=== PATIENT | female | born 1935 | race Caucasian/White ===

== ENCOUNTER 2016-06-20 10:32 | Inpatient (IN) | payer MEDICARE, OTHER ==
[~2016-06-20] VITALS: Ht 170.2 cm; Wt 66.3 kg
[2016-06-20] VITALS (9 sets, daily range): BP systolic 158–210; BP diastolic 84–131
--- NOTE | 2016-06-20 11:00 | ED Neurological Problem ---
General Chief Complaint: Neuro-Stroke Like Symptoms Stated Complaint: LEFT FACIAL DROOPING Nursing Triage Note: PT TAKEN STRAIGHT BACK TO RM 5 ON ARRIVAL WITH RT FACIAL DROOPING, HX OF BELLS PALSY, DR. PINON IN ROOM ON ARRIVAL. CT CALLED AND PT TAKEN TO CT AFTER ASSESSMENT BY DR. PINON. PT SLURRING SPEACH, S/S STARTED BETWEEN 0730 AND 0800 THIS A.M. Nursing Sepsis Screen: No Definite Risk Source: patient Exam Limitations: no limitations History of Present Illness Time seen by provider: 10:33 Initial Comments Here with report of onset of left facial paralysis and slurred speech that started between 730 a.m. this morning. 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 No recent prodrome. Does have left-sided weakness that is a persistent deficit for her she is had that since she had Dick 's palsy. She states the Dick's palsy previously was on her right side. Denies nausea, vomiting, chest pain or breathing problems. Patient walked into the ER. Timing/Duration: 1-3 hours Severity: moderate Associated Symptoms: No confusion, No fever/chills, No nausea/vomiting, No numbness in legs/feet, slurred speechNo tingling in legs/feet, No trouble walking, weakness Allergies and Home Medications Allergies Coded Allergies: Sulfa (Sulfonamide Antibiotics) (Verified Allergy, Unknown, 12/21/08) Home Medications Diazepam 10 Mg Tablet 10 MG PO HS PRN PRN ANXIETY (Reported) Diclofenac Sodium 50 Mg Tablet.dr 50 MG PO BID (Reported) Metoprolol Succinate 25 Mg Tab.er.24h 25 MG PO DAILY (Reported) Tramadol HCl 50 Mg Tablet 50-100 MG PO Q6H PRN PRN PAIN (Reported) Constitutional: see HPINo chills, No fever Eyes: See HPIDenies Blurred Vision, Drainage (excessive tearing on the left eye) Ears, Nose, Mouth, Throat: no symptoms reported Respiratory: no symptoms reportedNo short of breath, No wheezing Cardiovascular: no symptoms reportedNo chest pain, No palpitations Gastrointestinal: No abdominal pain, No nausea, No vomiting Genitourinary: no symptoms reported Musculoskeletal: no symptoms reported Skin: no symptoms reported Psychiatric/Neurological: See HPI Endocrine: No Symptoms Reported All Other Systems Reviewed Negative Unless Noted: Yes Past Pyvssqv-Trhpaf-Ospuns Hx Patient Social History Alcohol Use: Denies Use Recreational Drug Use: No Smoking Status: Former Smoker Recent Foreign Travel: No Contact w/Someone Who Travel: No Recent Infectious Disease Expo: No Recent Hopitalizations: No Physical Abuse Screen: No Sexual Abuse: No Seasonal Allergies Seasonal Allergies: Yes Surgeries HX Surgeries: Yes (SPLEENECTOMY, BI LAT KNEES) Surgeries: Appendectomy, Orthopedic Respiratory Hx Respiratory Disorders: No Cardiovascular Hx Cardiac Disorders: No Neurological Hx Neurological Disorders: Yes (dick's palsy right side) Reproductive System Hx Reproductive Disorders: No Sexually Transmitted Disease: No Genitourinary Hx Genitourinary Disorders: No Gastrointestinal Hx Gastrointestinal Disorders: No Musculoskeletal Hx Musculoskeletal Disorders: Yes (arthritis) Musculoskeletal Disorders: Arthritis Endocrine Hx Endocrine Disorders: No HEENT HX ENT Disorders: No Cancer Hx Cancer: No Psychosocial Hx Psychiatric Problems: No Blood Transfusions Hx Blood Disorders: No Reviewed Nursing Assessment Reviewed/Agree w Nursing PMH: Yes Family Medical History Significant Family History: No Pertinent Family Hx Physical Exam Vital Signs Vital Sign - Last 12Hours 06/20/16 06/20/16 10:38 10:55 Temp 98.4 Pulse 81 Resp 20 B/P 187/102 Pulse Ox 95 O2 Delivery Room Air O2 Flow Rate 2 Capillary Refill : Less Than 3 Seconds General Appearance: WD/WN no apparent distress HEENT: PERRL/EOMI pharynx normal other (left facial droop and left eye tearing ) Neck: full range of motion supple Respiratory: lungs clear normal breath sounds Cardiovascular: regular rate, rhythm no murmur Peripheral Pulses: 2+ Dorsalis Pedis (R), 2+ Left Dors-Pedis (L), 2+ Radial Pulses (R), 2+ Radial Pulses (L) Gastrointestinal: non tender soft Back: normal inspection no CVA tenderness no vertebral tenderness Extremities: non-tender normal inspection Neurologic/Psychiatric: alert oriented x 3 Crainal Nerves: normal hearing PERRL abnormal speech (slightly slurred) facial droop facial weakness Coordination/Gait: normal finger to nose normal gait Motor/Sensory: no motor deficit no sensory deficit no pronator drift weak motor strength LUE (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) Skin: normal color warm/dry Stroke NIH Stroke Scale Assessment Level of Consciousness: 0=Alert Level of Consciousness-Questio: 0=Answers both month/age LOC Commands: 0=Performs both tasks Gaze: 0=Normal Visual Calle: 0=No visual loss Facial Movement (Facial Paresi: 2=Partial paralysis Motor Function-Arms Right: 0=No drift Motor Function-Arms Left: 1=Drift Motor Function-Legs Right: 0=No drift Motor Function-Legs Left: 0=No drift Limb Ataxia: 0=Absent Sensory: 0=Normal:no loss Best Language: 0=No aphasia Dysarthria: 1=Mild to moderate loss Extinction & Inattention: 0=No abnormality Progress/Results/Core Measures Results/Orders Lab Results Laboratory Tests Test 06/20/16 11:01 06/20/16 11:03 06/20/16 11:20 06/20/16 11:45 Range/Units Basophils # (Auto) 0.0 0.0-0.1 10^3/uL Basophils (%) (Auto) 1 0-10 % Eosinophils # (Auto) 0.2 0.0-0.3 10^3/uL Eosinophils (%) (Auto) 3 0-10 % Hematocrit 45 35-52 % Hemoglobin 14.2 11.5-16.0 G/DL Lymphocytes # (Auto) 1.5 1.0-4.0 X 10^3 Lymphocytes (%) (Auto) 25 12-44 % Mean Corpuscular Hemoglobin 28 25-34 PG Mean Corpuscular Hemoglobin Concent 32 32-36 G/DL Mean Corpuscular Volume 87 80-99 FL Mean Platelet Volume 10.4 7.4-10.4 FL Monocytes # (Auto) 0.5 0.0-1.0 X 10^3 Monocytes (%) (Auto) 9 0-12 % Neutrophils # (Auto) 3.8 1.8-7.8 X 10^3 Neutrophils (%) (Auto) 63 42-75 % Platelet Count 269 130-400 10^3/uL Red Blood Count 5.12 4.35-5.85 10^6/uL Red Cell Distribution Width 14.5 10.0-14.5 % White Blood Count 6.1 4.3-11.0 10^3/uL Glucometer 91 70-110 MG/DL Activated Partial Thromboplast Time 28 24-35 SEC Alanine Aminotransferase (ALT/SGPT) 16 0-55 U/L Albumin 3.8 3.2-4.5 G/DL Alkaline Phosphatase 81 40-136 U/L Anion Gap 8 5-14 MMOL/L Aspartate Amino Transf (AST/SGOT) 17 5-34 U/L BUN/Creatinine Ratio 20 Blood Urea Nitrogen 15 7-18 MG/DL Calcium Level 9.0 8.5-10.1 MG/DL Carbon Dioxide Level 29 21-32 MMOL/L Chloride Level 104 98-107 MMOL/L Creatinine 0.76 0.60-1.30 MG/DL D-Dimer 0.71 H 0.00-0.49 UG/ML Estimat Glomerular Filtration Rate > 60 Glucose Level 109 H 70-105 MG/DL INR Comment 1.0 0.8-1.4 Potassium Level 3.6 3.6-5.0 MMOL/L Prothrombin Time 13.0 12.2-14.7 SEC Sodium Level 141 135-145 MMOL/L Total Bilirubin 0.5 0.1-1.0 MG/DL Total Protein 6.6 6.4-8.2 G/DL Troponin I < 0.30 <0.30 NG/ML Urine Bacteria LARGE H /HPF Urine Bilirubin NEGATIVE NEGATIVE Urine Casts NONE /LPF Urine Clarity CLEAR Urine Color YELLOW Urine Crystals NONE /LPF Urine Culture Indicated YES Urine Glucose (UA) NEGATIVE NEGATIVE Urine Ketones NEGATIVE NEGATIVE Urine Leukocyte Esterase 2+ H NEGATIVE Urine Mucus NEGATIVE /LPF Urine Nitrite POSITIVE H NEGATIVE Urine Protein NEGATIVE NEGATIVE Urine RBC RARE /HPF Urine RBC (Auto) NEGATIVE NEGATIVE Urine Specific [place] 1.015 L 1.016-1.022 Urine Squamous Epithelial Cells 2-5 /HPF Urine Urobilinogen NORMAL NORMAL MG/DL Urine WBC 5-10 H /HPF Urine pH 6.5 5-9 My Orders Orders-OSMEL PINON MD Cbc With Automated Diff (06/20/16 10:39) Protime With Inr (06/20/16 10:39) Partial Thromboplastin Time (06/20/16 10:39) Comprehensive Metabolic Panel (06/20/16 10:39) Fibrin Degradation Products (06/20/16 10:39) Troponin I (06/20/16 10:39) Ua Culture If Indicated (06/20/16 10:39) Chest 1 View, Ap/Pa Only (06/20/16 10:39) Ekg Tracing (06/20/16 10:39) Nothing By Mouth (06/20/16 Dinner) Accucheck Stat ONCE (06/20/16 10:39) Saline Lock/Iv-Start (06/20/16 10:39) Saline Lock/Iv-Start (06/20/16 10:39) Vital Signs-Stroke Q1H (06/20/16 10:39) Ct Head Wo-R/O Stroke (06/20/16 10:39) O2 (06/20/16 10:39) Intake & Output 06,14,22 (06/20/16 10:39) Monitor-Rhythm Ecg Trace Only (06/20/16 10:39) Dysphagia Screening Tool (06/20/16 10:39) Ct Angio Head/Neck (06/20/16 11:59) Urine Culture (06/20/16 11:45) Iohexol Injection (Omnipaque 350 Mg/Ml 1 (06/20/16 12:15) Ns (Ivpb) (Sodium Chloride 0.9% Ivpb Bag (06/20/16 12:15) Aspirin Chewable Tablet (Baby Aspirin Ch (06/20/16 13:00) Saline Lock/Iv-Start (06/20/16 13:07) Ns Iv 500 Ml (Sodium Chloride 0.9%) (06/20/16 13:07) Ns Iv 500 Ml (Sodium Chloride 0.9%) (06/20/16 13:03) Ceftriaxone Injection (Rocephin Injectio (06/20/16 13:30) Medications Given in ED Current Medications Medications Dose Ordered Sig/Ysabel Route Start Time Stop Time Status Last Admin Dose Admin Iohexol 100 ml ONCE ONCE IV 06/20/16 12:15 06/20/16 12:16 DC 06/20/16 12:15 80 ML Sodium Chloride 500 ml @ 0 mls/hr Q0M ONCE IV 06/20/16 13:07 06/20/16 13:09 DC 06/20/16 13:11 500 MLS/HR Sodium Chloride 100 ml 100 ml ONCE ONCE IV 06/20/16 12:15 06/20/16 12:16 DC 06/20/16 12:15 80 ML Vital Signs/I&O Vital Sign - Last 12Hours 06/20/16 06/20/16 10:38 10:55 Temp 98.4 Pulse 81 Resp 20 B/P 187/102 Pulse Ox 95 O2 Delivery Room Air Nasal Cannula O2 Flow Rate 2 Blood Pressure Mean: 130 Progress Note : Progress Note Seen and evaluated. Stroke activation on arrival. Patient is outside the 3 hour window on arrival if onset of symptoms was at 730. Rapid assessment and CT evaluation initiated. 1057: Stroke scale unchanged. 1104: Discussed case with Dr. Lim at on-call stroke neurology. I reviewed the case, findings and current condition. TPA not indicated as patient outside a 3 hour window. She has low stroke scale on assessment. She states that she would not be surprised if there was mild underlying stroke but given low scale symptoms and time, TPA would be more risk than benefit. I agree. This is discussed with patient and family and they agree. Dr. Lim does recommend CT angiogram of the head and neck to rule out intravascular concerns and this will be ordered as soon as creatinine is available. 1247: Blood pressure 156/91 with heart rate of 67. O2 sat [address] angiogram of the head and neck is complete and pending results. We will give fluid bolus to flush contrast. Patient will be admitted. UTI noted. Rocephin 1 g IV. I did discuss the case with Dr. Morales at 1256. She requested consult cardiology. This was placed at 1320. I did discuss the case with Dr. Kaplan and he accepts in consult. ECG Initial ECG Impression Date: Jun 20, 2016 Initial ECG Impression Time: 10:50 Initial ECG Rate: 73 Initial ECG Comparisson: No Previous ECG Available Comment Sinus rhythm with PVC. LVH noted. Normal axis. No evidence of ST elevation [place]. No previous available for comparison. Interpreted by me. Diagnostic Imaging Diagonstic Imaging: CT Plain Films/CT/US/NM/MRI: head Comments NAME: MJ KRAMER [facility] REC#: [id number] PT STATUS: REG ER : 1935 PHYSICIAN: OSMEL PINON MD ADMIT DATE: 06/20/16/ER Signed Date of Exam: 06/20/16 CT HEAD WO-R/O STROKE CT scan of the head without intravenous contrast. INDICATION: Left facial droop. FINDINGS: There is no intracranial hemorrhage, edema, or mass effect. The brain parenchyma and aguilar and white matter differentiation is preserved. There are periventricular and deep white matter hypodensities compatible with chronic microvascular ischemic changes. No hydrocephalus. No extra-axial fluid collection is seen. The calvarium, the visualized portions of the paranasal sinuses and the orbits appear grossly unremarkable. IMPRESSION: No intracranial hemorrhage. Dictated by: Dictated on workstation # [id number] Dict: 06/20/16 1045 Trans: 06/20/16 1113 [id number] Interpreted by: BRANDON CROFT MD Electronically signed by:BRANDON CROFT MD 06/20/16 1115 Reviewed: Reviewed by Me Diagonstic Imaging: Xray Plain Films/CT/US/NM/MRI: chest Comments NAME: MJ KRAMER [facility] REC#: [id number] PT STATUS: REG ER : 1935 PHYSICIAN: OSMEL PINON MD ADMIT DATE: 06/20/16/ER Signed Date of Exam: 06/20/16 CHEST 1 VIEW, AP/PA ONLY EXAMINATION: Portable upright radiograph of the chest. INDICATION: Left facial droop. FINDINGS: The heart size is mildly enlarged with mild vascular congestion. No tacos edema. No effusion or pneumothorax. The mediastinum and flor appear unremarkable. IMPRESSION: Cardiomegaly with mild pulmonary vascular congestion. Dictated by: Dictated on workstation # [id number] Dict: 06/20/16 1050 Trans: 06/20/16 1113 [facility] [id number] Interpreted by: BRANDON CROFT MD Electronically signed by:BRANDON CROFT MD 06/20/16 1115 Reviewed: Reviewed by Me Departure Communication Time/Spoke to Admitting Phy: 12:56 Time/Spoke to Consulting Physi: 13:20 Impression Impression: Primary Impression: Cerebrovascular accident due to cerebral artery occlusion Additional Impression: Urinary tract infection Qualified Code: N30.00 - Acute cystitis without hematuria Disposition: ADMITTED INPATIENT Condition: Stable Decision to Admit Reason: Admit from ER (General) Decision to Admit/Date: Jun 20, 2016 Time/Decision to Admit Time: 12:50 Departure-Patient Inst. Referrals: NO,LOCAL PHYSICIAN (PCP/Family) Primary Care Physician OSMEL PINON MD Jun 20, 2016 11:00
[2016-06-20 11:07] LABS: BASOPHILS % (AUTO) 1 % (0-10); EOSINOPHILS # (AUTO) 0.2 10^3/uL (0.0-0.3); EOSINOPHILS % (AUTO) 3 % (0-10); LYMPHOCYTES # (AUTO) 1.5 X 10^3 (1.0-4.0); LYMPHOCYTES % (AUTO) 25 % (12-44); MEAN CORPUSCULAR HEMOGLOBIN 28 PG (25-34); MEAN CORPUSCULAR HGB CONC 32 G/DL (32-36); MEAN CORPUSCULAR VOLUME 87 FL (80-99); MEAN PLATELET VOLUME 10.4 FL (7.4-10.4); MONOCYTES # (AUTO) 0.5 X 10^3 (0.0-1.0); MONOCYTES % (AUTO) 9 % (0-12); NEUTROPHILS # (AUTO) 3.8 X 10^3 (1.8-7.8); NEUTROPHILS % (AUTO) 63 % (42-75); PLATELET COUNT 269 10^3/uL (130-400); RED BLOOD COUNT 5.12 10^6/uL (4.35-5.85); RED CELL DISTRIBUTION WIDTH 14.5 % (10.0-14.5); WHITE BLOOD COUNT 6.1 10^3/uL (4.3-11.0)
--- NOTE | 2016-06-20 11:08 | Diagnostic Imaging Report ---
EXAMINATION: Portable upright radiograph of the chest. INDICATION: Left facial droop. FINDINGS: The heart size is mildly enlarged with mild vascular congestion. No tacos edema. No effusion or pneumothorax. The mediastinum and flor appear unremarkable. IMPRESSION: Cardiomegaly with mild pulmonary vascular congestion. Dictated by: Dictated on workstation # [id number]
--- NOTE | 2016-06-20 11:09 | Diagnostic Imaging Report ---
CT scan of the head without intravenous contrast. INDICATION: Left facial droop. FINDINGS: There is no intracranial hemorrhage, edema, or mass effect. The brain parenchyma and aguilar and white matter differentiation is preserved. There are periventricular and deep white matter hypodensities compatible with chronic microvascular ischemic changes. No hydrocephalus. No extra-axial fluid collection is seen. The calvarium, the visualized portions of the paranasal sinuses and the orbits appear grossly unremarkable. IMPRESSION: No intracranial hemorrhage. Dictated by: Dictated on workstation # [id number]
[2016-06-20 11:50] LABS: ALANINE AMINOTRANSFERASE 16 U/L (0-55); ALBUMIN 3.8 G/DL (3.2-4.5); ANION GAP 8 MMOL/L (5-14); ASPARTATE AMINO TRANSFERASE 17 U/L (5-34); BILIRUBIN,TOTAL 0.5 MG/DL (0.1-1.0); BLOOD UREA NITROGEN 15 MG/DL (7-18); BUN/CREATININE RATIO 20; CARBON DIOXIDE 29 MMOL/L (21-32); CHLORIDE 104 MMOL/L (98-107); CREATININE SERUM 0.76 MG/DL (0.60-1.30); GFR ESTIMATED > 60; GLUCOSE 109 MG/DL (70-105); POTASSIUM 3.6 MMOL/L (3.6-5.0); SODIUM 141 MMOL/L (135-145); TOTAL PROTEIN 6.6 G/DL (6.4-8.2)
[2016-06-20 11:54] LABS: BILIRUBIN,URINE NEGATIVE (NEGATIVE); KETONES,URINE NEGATIVE (NEGATIVE); LEUKOCYTE ESTERASE ,URINE 2+ (NEGATIVE); NITRITE,URINE POSITIVE (NEGATIVE); PH,URINE 6.5 (5-9); PROTEIN,URINE NEGATIVE (NEGATIVE); UROBILINOGEN,URINE NORMAL (NORMAL)
[2016-06-20 11:56] LABS: TROPONIN I < 0.30 NG/ML (<0.30)
[2016-06-20] MEDS ORDERED: IOHEXOL 350 MG/ML 100 ML (OMNIPAQUE 350) VIAL IV ONE (12:15)
[2016-06-20] MEDS ORDERED: NS 100 ML (IVPB) BAG IV ONE (12:15)
[2016-06-20] MEDS ORDERED: ASPIRIN 81 MG CHEW (CHILDREN'S ASA) PO STA (13:00)
[2016-06-20] MEDS ORDERED: NS IV 500 ML 500 ML ONE (13:03)
--- NOTE | 2016-06-20 13:03 | Diagnostic Imaging Report ---
PROCEDURE: CT angiography of the head and CT angiography of the neck with and without contrast. TECHNIQUE: Contiguous noncontrast images were obtained from the skull base through the vertex. After intravenous contrast administration, helical CT angiography of the neck was performed. Source data was reformatted into multiple MIP projections. Delayed post contrast acquisition was also obtained. INDICATION: Left-sided droop. FINDINGS: CT angiogram neck: The bilateral common carotids are patent. The carotid bulbs and bifurcations patent with only slight calcified eccentric plaque non-stenosing. The cervical internal carotid arteries are patent. The bilateral vertebrals are very tortuous but patent. CT Angio head: The basilar artery and bilateral posterior cerebrals are patent. The intracranial ICAs, the A1, ACOM and paired anterior cerebral arteries patent. The bilateral middle cerebral arterial segments appeared patent. No intraluminal thrombus or branch occlusion is identified and no aneurysm or vascular malformation is apparent. Major dural venous sinuses showed normal enhancement. IMPRESSION: Mild cervical calcified carotid plaques without hemodynamically significant stenosis. Patency of the posterior circulation. The intracranial CT angio evaluation is unremarkable showing no stenosis, occlusion, intraluminal clot or other filling defect and no aneurysm or vascular malformation. Results have been discussed with the ER physician at the time of this dictation. Dictated by: Dictated on workstation # [id number]
[2016-06-20] MEDS ORDERED: NS IV 500 ML 500 ML IV ONE (13:07)
[2016-06-20] MEDS ORDERED: METO-270 PO (13:10)
[2016-06-20] MEDS ORDERED: DICL50TA6 PO (13:10)
[2016-06-20] MEDS ORDERED: DIAZ10TA3 PO (13:10)
[2016-06-20] MEDS ORDERED: TRAM50TA2 PO (13:10)
[2016-06-20] MEDS ORDERED: cefTRIAXone INJECTION 1,000 MG in NORMAL SALINE (BAXTER MINI) 50 ML IV ONE (13:30)
[2016-06-20] MEDS ORDERED: MULT1TAB69 PO (13:41)
[2016-06-20] MEDS ORDERED: DOCU100C37 PO (13:41)
[2016-06-20] MEDS ORDERED: GLUC-219 PO (13:41)
[2016-06-20] MEDS ORDERED: CHOL20003 PO (13:41)
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
--- NOTE | 2016-06-20 15:37 | Consultation-Cardiology ---
HPI-Cardiology Cardiology Consultation Date of Consultation 06/20/16 Date of Admission Indication: CVA HPI Patient is a 81 y/o female with hx of Dick's palsy x 2 in the past with right sided facial drooping. Presented to the ER this morning with complaints of left eyelid and facial drooping with slurred speech, difficulty eating/drinking. onset approx 730am. Reported to the ER at approx 1030, [facility] stroke team called for consultation and was decided pt not good candidate for tPA secondary to timing, low severity of symptoms and low stroke score. CT head/CTA head negative. Denies any CP, dyspnea, dizziness, lightheadedness, syncope or peripheral edema. Patient was seen and evaluated with Юлия, has history of Dick's palsy with left side weakness, woke up in the morning with right sided facial droop and numbness, try to eat breakfast and she was unable to chew her food and had some slurred speech. Continue the emergency room, acute stroke protocol was followed , [facility] was contacted and they recommended conservative management. She is reporting some improvement but still have significant facial droop, no slurred speech. Home Medications & Allergies Allergies: Coded Allergies: Sulfa (Sulfonamide Antibiotics) (Verified Allergy, Unknown, 12/21/08) Home Medication List Reviewed: Yes WLT-Yaobkc-Xfsqoz Hx Patient Social History Marital Status: Employed/Student: retired Alcohol Use: Rarely Uses Recreational Drug Use: No Smoking Status: Former Smoker (quit 30 years ago) Type Used: Cigarettes Recent Foreign Travel: No Recent Infectious Disease Expo: No Recent Hopitalizations: No Physical Abuse Screen: No Sexual Abuse: No Past Medical History HTN, arthritis, Hx of Dick's palsy Family Medical History Significant Family History: No Pertinent Family Hx (denies FH of stroke or vascular disease) Constitutional: No diaphoresis, No dizziness, No fever, No malaise, No weakness EENTM: tearing (left eye)No blurred vision, No double vision, No epistaxis, No hearing loss, No hoarseness, No nose pain, No throat pain, No throat swelling Respiratory: No cough, No dyspnea on exertion Cardiovascular: No chest pain, No edema, No palpitations Genitourinary: dysuriaNo frequency, No hematuria Musculoskeletal: No back pain, No muscle pain Psychiatric/Neurological: Numbness (left facial) Paresthesia (left sided facial paresthesia) Tremors (left arm) Reviewed Test Results Reviewed Test Results Lab Laboratory Tests 06/20/16 11:01: Basophils # (Auto) 0.0, Basophils (%) (Auto) 1, Eosinophils # (Auto) 0.2, Eosinophils (%) (Auto) 3, Hematocrit 45, Hemoglobin 14.2, Lymphocytes # (Auto) 1.5, Lymphocytes (%) (Auto) 25, Mean Corpuscular Hemoglobin 28, Mean Corpuscular Hemoglobin Concent 32, Mean Corpuscular Volume 87, Mean Platelet Volume 10.4, Monocytes # (Auto) 0.5, Monocytes (%) (Auto) 9, Neutrophils # (Auto ) 3.8, Neutrophils (%) (Auto) 63, Platelet Count 269, Red Blood Count 5.12, Red Cell Distribution Width 14.5, White Blood Count 6.1 06/20/16 11:03: Glucometer 91 06/20/16 11:20: Activated Partial Thromboplast Time 28, Alanine Aminotransferase (ALT/SGPT) 16, Albumin 3.8, Alkaline Phosphatase 81, Anion Gap 8, Aspartate Amino Transf (AST/ SGOT) 17, BUN/Creatinine Ratio 20, Blood Urea Nitrogen 15, Calcium Level 9.0, Carbon Dioxide Level 29, Chloride Level 104, Creatinine 0.76, D-Dimer 0.71H, Estimat Glomerular Filtration Rate > 60, Glucose Level 109H, INR Comment 1.0, Potassium Level 3.6, Prothrombin Time 13.0, Sodium Level 141, Total Bilirubin 0.5, Total Protein 6.6, Troponin I < 0.30 06/20/16 11:45: Urine Bacteria LARGEH, Urine Bilirubin NEGATIVE, Urine Casts NONE, Urine Clarity CLEAR, Urine Color YELLOW, Urine Crystals NONE, Urine Culture Indicated YES, Urine Glucose (UA) NEGATIVE, Urine Ketones NEGATIVE, Urine Leukocyte Esterase 2+H, Urine Mucus NEGATIVE, Urine Nitrite POSITIVEH, Urine Protein NEGATIVE, Urine RBC RARE, Urine RBC (Auto) NEGATIVE, Urine Specific [place] 1.015L, Urine Squamous Epithelial Cells 2-5, Urine Urobilinogen NORMAL, Urine WBC 5-10H, Urine pH 6.5 ECG Impression ECG Initial ECG Rhythm: Normal Sinus, PVC, PAC Physical Exam Vital Signs Vital Sign - Last 12Hours 06/20/16 06/20/16 10:38 10:55 Temp 98.4 Pulse 81 Resp 20 B/P 187/102 Pulse Ox 95 O2 Delivery Room Air O2 Flow Rate 2 Capillary Refill : Less Than 3 Seconds General Appearance: No Apparent Distress WD/WN HEENT: PERRL/EOMI Other (left eye lid drooping. Unable to fully close left eye ) Neck: Full Range of Motion Non Tender SuppleNo Carotid Bruit Respiratory: Chest Non Tender Lungs Clear Normal Breath Sounds No Accessory Muscle Use No Respiratory Distress Cardiovascular: Regular Rate, Rhythm No Edema No Gallop No JVD No Murmur Normal Peripheral Pulses Gastrointestinal: No Pulsatile Mass Non Tender Soft Rectal: Deferred Back: No CVA Tenderness Extremity: No Calf Tenderness Neurologic/Psychiatric: Alert Oriented x3 card hand II-XII Norm as Tested Skin: Normal Color Warm/Dry A/P-Cardiology Admission Diagnosis CVA HTN UTI Hx Dick's palsy Assessment/Plan Acute CVA with left sided facial drooping/left sided weakness- CT Head/CTA head negative. [facility] stroke team was consulted in ER. Thought not to be a good candidate for tPA. Continue ASA and I will start patient on Plavix. Further evaluation including 2D Echo, carotid duplex and continue on telemetry. Continue to monitor. HTN- continue home blood pressure medications and continue to monitor. UTI- continue ABX and continue to monitor. Hx of Dick's palsy x 2 in the past with right sided facial drooping. Osteoarthritis Thank you for allowing us to participate in the management of Ms. Mccartney. This is Юлия Doss PA-C as a scribe for Dr. Kaplan. This is Dr. Kaplan, I have seen and evaluated the patient with Юлия, interviewed the patient and perform physical examination by myself. On examination lungs were clear to auscultation, heart is slightly irregular with normal S1-S2. Still having left-sided facial droop, no other neurological deficit was noted. Having some numbness on the left cheek. Had a CT of the head and CTA and they were both negative. Patient was started on aspirin, I'll add Plavix. Evaluate carotid ultrasound. Monitor blood pressure and restart beta blockers. Receiving antibiotic for UTI. Continue to monitor. I agree with the current scribe. I did minor modification to the note and I used Italic Font Clinical Quality Measures Stroke: Date of last known well: Jun 20, 2015 Time of last known well: 07:30 Symptoms onset unknown: No ЮЛИЯ MEHTA Jun 20, 2016 3:37 pm ESTRELLA KAPLAN MD Jun 20, 2016 5:51 pm
[2016-06-20] MEDS ORDERED: CATHETER FLUSH 10 ML SYR IV PRN (16:15)
[2016-06-20] MEDS: CLOPIDOGREL 75 MG (PLAVIX) TABLET PO SCH (16:24)
[2016-06-20] MEDS: NS IV 1000 ML 1,000 ML IV SCH (16:24)
--- NOTE | 2016-06-20 17:52 | Diagnostic Imaging Report ---
PROCEDURE: US Carotid Duplex Bilateral. TECHNIQUE: Multiple real-time grayscale images were obtained over the carotid arteries in various projections bilaterally. Additional duplex Doppler and color Doppler images were also obtained. INDICATION: Stroke versus Dick's palsy. FINDINGS: Very mild degrees of intimal thickening are present without substantial luminal stenosis. No velocity, acceleration or deceleration. ICA to CCA percent ratios were not pathologically elevated. Vertebral flow antegrade bilaterally. IMPRESSION: Very mild degrees of intimal thickening and plaque did not form hemodynamically significant degrees of stenosis. Dictated by: Dictated on workstation # [id number]
[2016-06-20] MEDS ORDERED: ACETAMINOPHEN 325 MG TABLET/CAPLET (TYLENOL) ONE (23:27)
[2016-06-20] MEDS ORDERED: DIAZEPAM 5 MG (VALIUM) TABLET ONE (23:27)
[2016-06-20] MEDS ORDERED: ACETAMINOPHEN 325 MG TABLET/CAPLET (TYLENOL) PO ONE (23:45)
[2016-06-20] MEDS ORDERED: DIAZEPAM 5 MG (VALIUM) TABLET PO ONE (23:45)
[2016-06-21] VITALS (10 sets, daily range): BP systolic 132–178; BP diastolic 78–108
[2016-06-21 04:03] LABS: BASOPHILS % (AUTO) 1 % (0-10); EOSINOPHILS # (AUTO) 0.2 10^3/uL (0.0-0.3); EOSINOPHILS % (AUTO) 2 % (0-10); LYMPHOCYTES # (AUTO) 1.8 X 10^3 (1.0-4.0); LYMPHOCYTES % (AUTO) 25 % (12-44); MEAN CORPUSCULAR HEMOGLOBIN 28 PG (25-34); MEAN CORPUSCULAR HGB CONC 32 G/DL (32-36); MEAN CORPUSCULAR VOLUME 86 FL (80-99); MEAN PLATELET VOLUME 11.3 FL (7.4-10.4); MONOCYTES # (AUTO) 0.7 X 10^3 (0.0-1.0); MONOCYTES % (AUTO) 10 % (0-12); NEUTROPHILS # (AUTO) 4.4 X 10^3 (1.8-7.8); NEUTROPHILS % (AUTO) 63 % (42-75); RED BLOOD COUNT 5.41 10^6/uL (4.35-5.85); RED CELL DISTRIBUTION WIDTH 14.5 % (10.0-14.5); WHITE BLOOD COUNT 7.1 10^3/uL (4.3-11.0)
[2016-06-21 04:20] LABS: PLATELET COUNT 58 10^3/uL (130-400)
[2016-06-21 04:29] LABS: ALANINE AMINOTRANSFERASE 17 U/L (0-55); ALBUMIN 3.9 G/DL (3.2-4.5); ANION GAP 12 MMOL/L (5-14); ASPARTATE AMINO TRANSFERASE 20 U/L (5-34); BILIRUBIN,TOTAL 0.6 MG/DL (0.1-1.0); BLOOD UREA NITROGEN 7 MG/DL (7-18); BUN/CREATININE RATIO 10; CARBON DIOXIDE 25 MMOL/L (21-32); CHLORIDE 106 MMOL/L (98-107); CHOLESTEROL 184 MG/DL (< 200); CREATININE SERUM 0.69 MG/DL (0.60-1.30); DIRECT LDL 115 MG/DL (1-129); GFR ESTIMATED > 60; GLUCOSE 94 MG/DL (70-105); MAGNESIUM 2.2 MG/DL (1.8-2.4); PHOSPHORUS 3.5 MG/DL (2.3-4.7); POTASSIUM 3.5 MMOL/L (3.6-5.0); SODIUM 143 MMOL/L (135-145); TOTAL PROTEIN 6.7 G/DL (6.4-8.2); TRIGLYCERIDES 86 MG/DL (<150); VLDL CHOLESTEROL 17 MG/DL (5-40)
[2016-06-21] MEDS: NS IV 1000 ML 1,000 ML IV SCH (05:43)
[2016-06-21] MEDS ORDERED: KCL 20 MEQ TAB (K-DUR) PO SCH (06:00)
[2016-06-21] MEDS ORDERED: MAGNESIUM 1 GM/100 ML IVPB 100 ML IV SCH (06:00)
[2016-06-21] MEDS ORDERED: POTASSIUM CL 10MEQ/50ML IVPB 50 ML IV SCH (06:00)
[2016-06-21] MEDS ORDERED: KCL 20 MEQ TAB (K-DUR) PO ONE (06:15)
[2016-06-21] MEDS ORDERED: NON-FORMULARY MEDICATION 1 EA EA (Diazepam 10 MG) PO PRN (06:45)
[2016-06-21] MEDS ORDERED: DIAZEPAM 5 MG (VALIUM) TABLET PO PRN (07:00)
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
[2016-06-21] MEDS ORDERED: NON-FORMULARY MEDICATION 1 EA EA (Diclofenac Sodium 50 MG) PO SCH (09:00)
[2016-06-21] MEDS ORDERED: cefTRIAXone 1 GM/NS 50 ML IVPB IV SCH ×2 (09:00)
[2016-06-21] MEDS ORDERED: MULTIVIT W/MINERALS TAB (THERAGRAN M) PO SCH (09:00)
[2016-06-21] MEDS ORDERED: ASPIRIN 325 MG (5 GR) TABLET PO SCH (09:00)
[2016-06-21] MEDS ORDERED: ETODOLAC 200 MG (LODINE) CAP PO SCH (09:00)
[2016-06-21] MEDS ORDERED: DOCUSATE SODIUM 100 MG (COLACE) CAP PO SCH (09:00)
--- NOTE | 2016-06-21 09:16 | ECHOCARDIOGRAPHY REPORT ---
PROCEDURE PHYSICIAN: ESTRELLA GRECO DATE OF PROCEDURE: 06/20/2016 TWO DIMENSIONAL ECHOCARDIOGRAM REPORT PRIMARY PHYSICIAN: OTHER PHYSICIAN: REFERRING PHYSICIAN: Dr. Maryjane Morales ORDERING PHYSICIAN: INDICATION FOR THE PROCEDURE: CVA MEASUREMENTS DERIVED VALUES LV DIAMETER (LAX) NORMALS NORMALS Diastolic 4.6 (3.6-5.2) Eject. Fract. 60% (60%+/-6%) Systolic (2.3-3.9) Diastolic Vol. % Shortening (0.22-0.42) Systolic Vol. Aortic Root IVS THICKNESS Diastolic 1.5 (0.6-1.1) LVPW THICKNESS Diastolic 1.3 (0.6-1.1) LA DIAMETER Systolic 4.4 (2.1-3.7) FINDINGS: 1. Technical quality is good. 2. The left ventricle is normal in size with moderate to severe left ventricular hypertrophy noted diffusely. Systolic function appeared to be normal. Estimated ejection fraction 60%. 3. The left atrium is dilated. No clot or thrombus were seen within the left atrium. 4. The right atrium and right ventricle are normal in size. No clot or thrombus were seen within the right side. 5. Mitral valve is calcified with moderate mitral regurgitation noted by color Doppler flow. No mitral valve prolapse. No mitral valve stenosis. 6. Aortic valve is trileaflet with normal opening and closing pattern. No significant aortic stenosis or regurgitation was seen. 7. Tricuspid valve is normal in morphology with mild tricuspid regurgitation noted by color Doppler flow. Doppler across tricuspid valve estimated pulmonary artery pressure of 29+ right atrial pressure. 8. Pulmonic valve is functioning normally. 9. No pericardial effusion. CONCLUSION: 1. Moderate to severe left ventricular hypertrophy noted diffusely. Systolic function appeared to be normal. Estimated ejection fraction 60%. 2. Moderate mitral regurgitation. Mild tricuspid regurgitation. 3. Estimated pulmonary artery pressure of 35 mmHg. Job ID: [id number] Dictated Date: 06/20/2016 17:32:58 Dental Laboratory Technician Date: 06/21/2016 09:12:32 / evi
[2016-06-21] MEDS ORDERED: GADOBUTROL 7.5 MMOL/7.5 ML (GADAVIST) VIAL IV ONE (09:30)
--- NOTE | 2016-06-21 09:35 | Progress Note-Hospitalist ---
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 Dr. Kaplan is on consultation. ECHO is yet to be done. Patient Interview: Pt states her PCP is Dr. Ahuja in [place]. Pt states she has had [place] Palsy 2 x before on the right side. Pt current episode is on her left side. Pt states her last episode was 10 years ago. Pt states she can move her left arm well currently. Pt states she needs shoulder repairs so her range of motion is always limited. Pt denies using CPAP or night time O2. 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 Physical exam was stable. Pt states she has never had a MRI. Pt denies having metal in her body. Pt states she thinks her knee replacements are plastic. Scribed by Ambrocio Ventura under the direct supervision of Dr. Tapia. 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 1. 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 HTN -allow for permissive hypertension with goal systolic <185 3. UTI -urine in ED with bacteria, nitrite, and leuk esterase positive -start ceftriaxone 4. Osteoarthritis -continue home dose tramadol as needed for pain 5. anxiety -diazepam HS prn for sleep disposition: admit to floor FLORENCIA TAPIA DO 06/22/16 1214: Progress Note Progress Notes/Assess & Plan Diagonsis/Assessment & Plan patient seen and examined and documented per H&P Updated patient on the plan for discharge since MRI showed only evidence of chronic but likely very small microinfarct causing symptoms but etiology essentially unknown for certain and could be an atypical presentation of Dick's palsy of which she has had in the past. MAK DEUTSCH MED STUDENT Jun 21, 2016 09:35 FLORENCIA TAPIA DO Jun 22, 2016 12:14
--- NOTE | 2016-06-21 09:58 | Diagnostic Imaging Report ---
PROCEDURE: MR imaging of the brain with and without contrast. TECHNIQUE: Multiplanar, multisequence MR imaging of the brain was performed with and without contrast. INDICATION: Left-sided facial droop. 6 mL of Gadavist was administered intravenously. FINDINGS: There is no diffusion restriction to suggest an acute infarct or other diffusion abnormality. There is a periventricular and deep white matter T2 hyperintense lesions in a somewhat symmetric fashion with extension to the subcortical areas as well as in the brainstem as well, commonly seen at the patient's age related to chronic microvascular ischemic changes. These are not associated with significant mass effect and demonstrate no contrast enhancement. No enhancing mass in the brain or in the extra-axial space. No extra-axial fluid collection or hemorrhage. There is no hydrocephalus. The pituitary gland is relatively small in volume with prominent amount of CSF at the sella turcica, within normal limits. Central vascular flow-voids appear preserved. The internal auditory canals and inner ear structures appear symmetric. The orbits and paranasal sinuses appear grossly unremarkable. IMPRESSION: No acute infarct. No enhancing mass. Dictated by: Dictated on workstation # [id number]
--- NOTE | 2016-06-21 10:14 | Diagnostic Imaging Report ---
INDICATION: Stroke. Urinary tract infection. TECHNIQUE: Single view chest at 4:48 a.m. CORRELATION STUDY: 06/20/2016. FINDINGS: Heart size is enlarged. Vasculature is within normal limits. Dense calcification of the aortic arch. Lungs are generally clear. However, there is suggestion of some air bronchograms in the left infrahilar region, in which area of infiltrate not excluded. IMPRESSION: 1. Cardiac enlargement without failure. 2. Infiltrate developing in the left lung base retrocardiac region not excluded. If symptoms persist, followup imaging recommended. Dictated by: Dictated on workstation # [id number]
[2016-06-21] MEDS: CLOPIDOGREL 75 MG (PLAVIX) TABLET PO SCH (10:18)
--- NOTE | 2016-06-21 10:26 | ST Dysphagia Evaluation ---
Speech Evaluation-General Medical Diagnosis CVA Onset Date: Jun 20, 2016 Therapy Diagnosis Therapy Diagnosis: Mild Oral Dysphagia Precautions Precautions/Isolations: Standard Precautions Referral Referring Physician: Dr. Maryjane Morales Reason for Referral: Evaluation/Treatment Clinical Bedside Swallowing Evaluation Medical History Pertinent Medical History: Arthritis, HTN [place] Palsy (right) Reviewed History: Yes Speech PLF/Current-Dysphagia Prior Level of Function The patient denied signs/symptoms of aspiration with her current diet consistency (regular with thin liquids). The patient does report intermittent pocketing on the right due to her history of [place] Palsy, however, stated she is aware of this occurrence and does complete lingual sweeps of the region throughout meals. Subjective The patient was recently admitted to [facility] following a CVA. The patient greeted the clinician upon entrance and agreed to participate in the dysphagia evaluation on this date. To note: The patient has a known history of [place] Palsy (right). CXR: 06/20/16: Cardiomegaly with mild pulmonary vascular congestion. CT Head: 06/20/16: No intracranial hemorrhage. Cognitive Status Patient Orientation: Person, Place, Time, Situation Oral Motor Skills Dentition: Edentalous Denture Type: Full- Upper & Lower Current Food Consistancy: Regular, Thin Liquids Ability to Follow Directions: Excellent Oral Expression Ability: No Impairment Voice Voice Phonatory-Based Quality: Normal Voice Pitch: Normal Voice Loudness: Normal Face Facial Symmetry: Asymmetrical (The patient presents with a mild right facial droop and moderate left facial droop.) Oral-Facial Assessment Oral-Facial Dentition: Normal Labial Seal Description: Droops Left, Weak Smile: Droops Left Puff Cheeks: Reduced Strength (Left) Lingual Protrusion: Abnormal (Right lingual deviation.) Lingual ROM: Normal Lingual Strength: Normal Pharynx Velopharyngeal Move.: Normal Volitional Dry Swallow: Yes Dysphagia Evaluation Consistencies Presented: Regular, Thin Liquid Oral Phase: Anterior Spillage, Oral Residue, Left Pocketing, Right Pocketing Anterior bolus loss noted of thin liquids via straw. Mild buccal pocketing ( bilateral) was noted, as well as, mild lingual residue with solid consistencies tested. No pharyngeal swallow impairments were noted throughout the evaluation. - Thin Liquids: No signs/symptoms of aspiration were noted with thin liquids throughout the evaluation. - Solids: No signs/symptoms of aspiration were noted with solid consistencies tested throughout the assessment. Dietary Recommendations: Regular Liquid Recommendations: Thin Swallowing Precautions: Pocketing, Small Bites and Sips, Sitting Upright 90 Degrees, Left Tongue Sweep, Right Tongue Sweep Dysphagia Evaluation Summary The patient demonstrated mild oral dysphagia characterized by decreased lingual and labial strength and coordination. Speech-Plan Treatment Plan Speech Therapy Treatment Plan: Discontinue ST (Eval, only.) Rehab Potential: Good Safety Risks/Education Teaching Recipient: Patient Teaching Methods: Discussion Response to Teaching: Verbalize Understanding Education Topics Provided: Results, Recommendations, Swallowing Strategies Time Speech Therapy Time In: 07:55 Speech Therapy Time Out: 08:15 Total Billed Time: 20 Billed Treatment Time 1, VIRIDIANA BOWLES Jun 21, 2016 10:25
--- NOTE | 2016-06-21 11:19 | Physical Therapy Progress Note ---
Therapy Progress Note Patient declined PT intervention due to patient states she is independent and having no difficulty getting around. Patient also states she plans on dismissing to home on this date. PT notified nursing. No PT indicated at this time. JUAN MANUEL LORENZO PT Jun 21, 2016 11:19
[2016-06-21] MEDS ORDERED: ASPI-808 PO (11:55)
[2016-06-21] MEDS ORDERED: LOVA20TA2 PO (11:55)
--- NOTE | 2016-06-21 11:57 | Discharge Instructions ---
Discharge Instructions Discharge Medications New, Converted or Re-Newed RX: Transmitted to Pharmacy New Medications: Lovastatin (Lovastatin) 20 Mg Tablet 20 MG PO DAILY #30 TAB Aspirin (Aspirin) 325 Mg Tablet 325 MG PO DAILY@0900 #30 TAB Continued Medications: Cholecalciferol (Vitamin D3) (Vitamin D3) 2,000 Unit Capsule 2000 UNIT PO DAILY CAP Diazepam (Diazepam) 10 Mg Tablet 10 MG PO HS PRN ANXIETY TAB Diclofenac Sodium (Diclofenac Sodium) 50 Mg Tablet.dr 50 MG PO BID TAB Docusate Sodium (Docusate Sodium) 100 Mg Capsule 200 MG PO DAILY TAKES 2 (100 MG) CAPSULES CAP Glucosamine/D3/Boswellia Charlotte (Osteo Bi-Flex Tablet) 1 Each Tablet 1 TAB PO DAILY TAB Metoprolol Succinate (Metoprolol Succinate) 25 Mg Tab.er.24h 25 MG PO DAILY TAB Multivitamin (Multivitamins) 1 Each Tablet 1 TAB PO DAILY TAB Tramadol HCl (Tramadol HCl) 50 Mg Tablet 50-100 MG PO Q6H PRN PAIN TAB Patient Instructions Goal/Follow Up Appt: Dr Ahuja in 1 week to discuss any other testing for facial weakness Return to The Hospital For: Recurrence of symptoms Activity & Diet Discharge Diet: Cardiac Diet Activity as Tolerated: Yes FLORENCIA TAPIA DO Jun 21, 2016 11:57
--- NOTE | 2016-06-21 12:00 | Discharge Summary-Hospitalist ---
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 HTN -allow for permissive hypertension with goal systolic <185 3. UTI -urine in ED with bacteria, nitrite, and leuk esterase positive -due to sulfa allergy, use nitrofurantoin 100mg PO q12h x5 days 4. 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 Dr. Kaplan is on consultation. ECHO is yet to be done. Patient Interview: Pt states her PCP is Dr. Ahuja in [place]. Pt states she has had [place] Palsy 2 x before on the right side. Pt current episode is on her left side. Pt states her last episode was 10 years ago. Pt states she can move her left arm well currently. Pt states she needs shoulder repairs so her range of motion is always limited. Pt denies using CPAP or night time O2. 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 Physical exam was stable. Pt states she has never had a MRI. Pt denies having metal in her body. Pt states she thinks her knee replacements are plastic. Scribed by Ambrocio Ventura under the direct supervision of Dr. Tapia. Hospital course: Patient had an uneventful hospital course she was placed in the ICU for presumed CVA and supportive care was initiated along with antiplatelet therapy along with risk factor stratification by cardiology. MRI showed micro-infarcts so aspirin was started at discharge along with statin therapy to try to decrease risk factors. Due to her comorbidities she was instructed to follow-up with primary care provider Dr. Ahuja and further evaluate her symptoms and ordered decrease her risk for further comorbidities. Discharge Summary Discharge Physical Examination Allergies: Coded Allergies: Sulfa (Sulfonamide Antibiotics) (Verified Allergy, Unknown, 12/21/08) Vitals & I&Os Vital Signs Date Time Temp Pulse Resp B/P Pulse Ox O2 Delivery O2 Flow Rate FiO2 06/21/16 11:44 97 Room Air 06/21/16 08:40 98.1 06/21/16 08:00 85 15 150/91 06/20/16 10:55 2 Hospital Course Labs (last 24 hrs) Laboratory Tests 06/21/16 03:28: Alanine Aminotransferase (ALT/SGPT) 17, Albumin 3.9, Alkaline Phosphatase 85, Anion Gap 12, Aspartate Amino Transf (AST/SGOT) 20, BUN/Creatinine Ratio 10, Basophils # (Auto) 0.0, Basophils (%) (Auto) 1, Blood Urea Nitrogen 7, Calcium Level 9.0, Carbon Dioxide Level 25, Chloride Level 106, Cholesterol Level 184, Creatinine 0.69, Eosinophils # (Auto) 0.2, Eosinophils (%) (Auto) 2, Estimat Glomerular Filtration Rate > 60, Glucose Level 94, HDL Cholesterol 50, Hematocrit 47, Hemoglobin 15.0, LDL Cholesterol Direct 115, Lymphocytes # (Auto ) 1.8, Lymphocytes (%) (Auto) 25, Magnesium Level 2.2, Mean Corpuscular Hemoglobin 28, Mean Corpuscular Hemoglobin Concent 32, Mean Corpuscular Volume 86, Mean Platelet Volume 11.3H, Monocytes # (Auto) 0.7, Monocytes (%) (Auto) 10 , Neutrophils # (Auto) 4.4, Neutrophils (%) (Auto) 63, Phosphorus Level 3.5, Platelet Count 58L, Potassium Level 3.5L, Red Blood Count 5.41, Red Cell Distribution Width 14.5, Smear Scan YES, Sodium Level 143, Total Bilirubin 0.6, Total Protein 6.7, Triglycerides Level 86, VLDL Cholesterol 17, White Blood Count 7.1 06/21/16 07:02: Platelet Count 284 Microbiology 06/20/16 Urine Culture - Preliminary, Resulted Escherichia Coli Streptococcus Species Pending Labs Laboratory Tests 06/21/16 07:02: Platelet Count 284 Discharge Home Medications: Active Scripts Active Aspirin 325 Mg Tablet 325 Mg PO DAILY@0900 Lovastatin 20 Mg Tablet 20 Mg PO DAILY Reported Docusate Sodium 100 Mg Capsule 200 Mg PO DAILY TAKES 2 (100 MG) CAPSULES Osteo Bi-Flex Tablet (Glucosamine/D3/Boswellia Charlotte) 1 Each Tablet 1 Tab PO DAILY Vitamin D3 (Cholecalciferol (Vitamin D3)) 2,000 Unit Capsule 2,000 Unit PO DAILY Multivitamins (Multivitamin) 1 Each Tablet 1 Tab PO DAILY Metoprolol Succinate 25 Mg Tab.er.24h 25 Mg PO DAILY Diclofenac Sodium 50 Mg Tablet.dr 50 Mg PO BID Diazepam 10 Mg Tablet 10 Mg PO HS PRN Tramadol HCl 50 Mg Tablet 50-100 Mg PO Q6H PRN Instructions to patient/family Please see electonic discharge instructions given to patient. Clinical Quality Measures DVT/VTE Risk/Contraindication: Risk Factor Score Per Nursin RFS Level Per Nursing on Admit: 3=High Stroke: Date of last known well: Jun 20, 2015 Time of last known well: 07:30 Symptoms onset unknown: No FLORENCIA TAPIA DO Jun 21, 2016 12:00
--- NOTE | 2016-06-21 13:35 | Cardiology Progress Note ---
Subjective Subjective/Events-last exam Patient is feeling better, still have facial droop, so far workup has been negative. Review of Systems General: No Chills, No Night Sweats, No Fatigue, No Malaise, No Appetite, No Other HEENT: No Head Aches, No Visual Changes, No Eye Pain, No Ear Pain, No Dysphasia , No Sinus Congestion, No Post Nasal Drip, No Sore Throat, No Other Pulmonary: No Dyspnea, No Cough, No Pleuritic Chest Pain, No Other Cardiovascular: No: Chest Pain, Edema, Lt Headedness, Orthopnea, Other, Palpitations, Paroxysmal Noc. Dyspnea Objective-Cardiology Exam Last Set of Vital Signs Vital Signs 06/20/16 06/21/16 06/21/16 10:55 08:40 12:53 Temp 98.1 Pulse 83 Resp 18 B/P 168/108 Pulse Ox 94 O2 Delivery Room Air O2 Flow Rate 2 Capillary Refill : Less Than 3 Seconds I&O Bad tableGeneral: Alert, Oriented X3, Cooperative HEENT: Atraumatic, PERRLA Neck: Supple, No JVD, No Thyromegaly Lungs: Clear to Auscultation, Normal Air Movement Heart: Regular Rate, Normal S1, Normal S2, No Murmurs Abdomen: Normal Bowel Sounds, Soft, No Tenderness, No Hepatosplenomegaly, No Masses Extremities: No Clubbing, No Cyanosis, No Edema, Normal Pulses, No Tenderness/ Swelling Skin: No Rashes, No Breakdown, No Significant Lesion Neuro: Normal Gait, Normal Speech, Strength at 5/5 X4 Ext, Normal Tone, Other ( Left-sided facial droop) Psych/Mental Status: Mental Status NL, Mood NL Results Lab Laboratory Tests 06/21/16 03:28 06/21/16 07:02 A/P-Cardiology Admission Diagnosis CVA HTN UTI Hx Dick's palsy Assessment/Plan Left-sided facial droop, questionable micro-stroke versus recurrent Dick's palsy to the left side, patient is being discharged today to follow-up with neurologist as an outpatient. Had an MRI done, followed by primary care physician Hypertension, instructed on restarting Toprol, patient will follow-up with Dr. May next week Hx of Dick's palsy x 2 in the past with right sided facial drooping. Osteoarthritis Clinical Quality Measures DVT/VTE Risk/Contraindication: Risk Factor Score Per Nursin RFS Level Per Nursing on Admit: 3=High Stroke: Date of last known well: Jun 20, 2015 Time of last known well: 07:30 Symptoms onset unknown: ESTRELLA Zimmer MD Jun 21, 2016 13:35
== END 2016-06-21 14:37 | disposition home or self-care (01) | DRG 65 ==
LOC: EDUNIT# 10:32 → ER 10:34 → ICU 14:25
PROVIDERS: ADMIT Internal Medicine; ATTEND Internal Medicine
DX: I63.9 Cerebral infarction, unspecified (principal); R29.810 Facial weakness; G81.94 Hemiplegia, unspecified affecting left nondominant side; N39.0 Urinary tract infection, site not specified; E78.5 Hyperlipidemia, unspecified; I10 Essential (primary) hypertension; F41.1 Generalized anxiety disorder
CPT/HCPCS: 36415; 70450; 70496; 70498; 70553; 71010; 80053; 80061; 81000; 82962; 83735; 84100; 84484; 85025; 85049; 85379; 85610; 85730; 87088; 87186; 93005; 93041; 93306; 93880; 96360

== ENCOUNTER → 2018-06-19 | Outpatient (CLI) | payer MEDICARE ==
[~2018-06-19] MED LIST: ASPI-808 PO; CHOL20003 PO; DIAZ10TA3 PO; DICL50TA6 PO; DOCU100C37 PO; GLUC-219 PO; LOVA20TA2 PO; METO-387 PO; MULT1TAB69 PO; TRAM50TA2 PO
--- NOTE | 2018-06-19 18:44 | Diagnostic Imaging Report ---
EXAMINATION: Digital mammogram bilateral screening with 3D tomosynthesis and computer-aided detection (CAD) system. INDICATION: Screening. COMPARISON: This study was compared to the prior exams of 07/28/2015, 06/08/2014, 05/25/2013, and 05/14/2012. At this time, there are no current complaints. FINDINGS: There are scattered fibroglandular densities in both breasts which could obscure a lesion. In the medial retroareolar region of the right breast, approximately 2 cm from the nipple, there is a small asymmetric density. This finding may merely be secondary to fibroglandular tissue alone. Even so, I would recommend that a compression view of this area be obtained in the CC and MLO projections as well as a true lateral view of the right breast for further study. If this density persists on the additional mammographic views, then ultrasound would be recommended as well. The left breast is unchanged. IMPRESSION: Additional mammographic views of the right breast would be recommended for further study. Ultrasound may also be necessary. ACR BI-RADS Category 0: Incomplete. (Needs additional imaging evaluation). Result letter will be mailed to the patient. Note: At least 10% of breast cancer is not imaged by mammography. Dictated by: Dictated on workstation # [id number]
== END ==
LOC: RAD 14:33
PROVIDERS: ATTEND Internal Medicine
DX: Z12.31 Encounter for screening mammogram for malignant neoplasm of breast (principal)
CPT/HCPCS: 77067

== ENCOUNTER → 2018-10-17 | Outpatient (CLI) | payer MEDICARE, OTHER ==
--- NOTE | 2018-10-17 13:17 | Diagnostic Imaging Report ---
Indication: Low back pain Lumbar spine AP and lateral views of lumbar spine shows normal alignment. There are superior end plate compression deformities of L1, L2 and L3 and inferior end plate compression deformity of T12. There is anterior wedging of T11. There is disc space narrowing at L4-5 and L5-S1. Impression: Multilevel compression fractures of indeterminate age. Patient has scoliosis of lumbar spine convex to the right and there are advanced degenerative changes at L4-5 and L5-S1. Dictated by: Dictated on workstation # [id number]
== END ==
LOC: RAD 11:53
PROVIDERS: ATTEND Chiropractor Sports Physician
DX: S32.000A Wedge compression fracture of unspecified lumbar vertebra, initial encounter for closed fracture (principal); M41.86 Other forms of scoliosis, lumbar region; M47.817 Spondylosis without myelopathy or radiculopathy, lumbosacral region
CPT/HCPCS: 72100

== ENCOUNTER → 2018-11-26 | Outpatient (CLI) | payer MEDICARE, OTHER ==
--- NOTE | 2018-11-26 09:05 | Diagnostic Imaging Report ---
Diagnostic right mammogram. Indication: Abnormal mammogram. The screening mammogram performed on 06/19/2018 noted a small asymmetric density in the medial retroareolar region of the right breast. On the repeat CC and MLO views of the right breast performed today, that density is no longer evident. I suspect it was secondary to fibroglandular tissue alone. There is no evidence for malignancy. Impression: 1. There is no evidence for malignancy. 2. The patient should have her annual mammogram on schedule in June of 2019. ACR BI-RADS Category 1: Negative. Result letter will be mailed to the patient. Note: At least 10% of breast cancer is not imaged by mammography. Dictated by: Dictated on workstation # [id number]
== END ==
LOC: RAD 08:03
PROVIDERS: ATTEND Internal Medicine
DX: R92.8 Other abnormal and inconclusive findings on diagnostic imaging of breast (principal)

== ENCOUNTER 2018-12-13 22:28 | Emergency (ER) | payer MEDICARE ==
[~2018-12-13] VITALS: Ht 170.2 cm; Wt 66.3 kg
--- OUTSIDE RECORDS SUMMARY | 2018-12-13 22:34 | XMS REPORT | Continuity of Care Document ---
Author Organization Unknown Address Unknown Allergies Active Description Code Type Severity Reaction Onset Reported/Identified Relationship to Patient Clinical Status Yes Sulfa (Sulfonamide Antibiotics) [id number] Drug Allergy Unknown N/A 12/21/2008 Medications There is no data. Problems Date Dx Coded Attending Type Code Diagnosis Diagnosed By 06/08/2014 Ot 782.2 06/08/2014 Ot V72.81 06/08/2014 Ot V72.83 06/08/2014 Ot V74.8 06/08/2014 Ot 715.36 06/08/2014 Ot 715.37 06/08/2014 Ot 719.06 06/08/2014 Ot 959.7 06/08/2014 Ot E849.0 06/08/2014 Ot E888.9 06/08/2014 Ot V76.12 06/08/2014 Ot V76.12 06/08/2014 Ot V76.12 06/08/2014 Ot V58.61 06/08/2014 Ot V58.83 06/08/2014 Ot 786.05 06/08/2014 Ot 786.05 06/08/2014 Ot 796.4 06/08/2014 Ot V76.12 06/08/2014 Ot 781.0 06/08/2014 NAPOLEON GALLEGOS MD Ot 793.82 06/08/2014 NAPOLEON GALLEGOS MD Ot V76.12 06/08/2014 NAPOLEON GALLEGOS MD Ot 733.90 07/06/2014 ADAM JON Ot 174.9 07/06/2014 ADAM JON Ot V76.11 07/28/2015 Ot V76.12 07/28/2015 Ot V76.12 07/28/2015 Ot V58.61 07/28/2015 Ot V58.83 07/28/2015 Ot 786.05 07/28/2015 Ot 786.05 07/28/2015 Ot 796.4 07/28/2015 Ot V76.12 07/28/2015 Ot 781.0 07/28/2015 NAPOLEON GALLEGOS MD Ot 793.82 07/28/2015 NAPOLEON GALLEGOS MD Ot V76.12 07/28/2015 NAPOLEON GALLEGOS MD Ot 733.90 07/28/2015 ADAM JON Ot 174.9 07/28/2015 ADAM JON Ot V76.11 08/18/2015 ROULA MATAMOROS MD Ot M81.0 08/18/2015 ROULA MATAMOROS MD Ot Z12.31 05/22/2016 Ot V76.12 OTH SCREEN MAMMO- MALIGN NEOPLASM OF [place] 05/22/2016 Ot V58.61 ANTICOAGULANTS,LT,CURRENT USE 05/22/2016 Ot V58.83 ENCOUNTER FOR THERAPEUTIC DRUG MONITORIN 05/22/2016 Ot 786.05 SHORTNESS OF BREATH 05/22/2016 Ot 786.05 SHORTNESS OF BREATH 05/22/2016 Ot 796.4 ABN CLINICAL FINDING NEC 05/22/2016 Ot V76.12 OTH SCREEN MAMMO- MALIGN NEOPLASM OF [place] 05/22/2016 Ot 781.0 ABN INVOLUN MOVEMENT NEC 05/22/2016 ROSY PINO, NAPOLEON Denis Ot 793.82 INCONCLUSIVE MAMMOGRAM 05/22/2016 NAPOLEON GALLEGOS MD Ot V76.12 OTH SCREEN MAMMO-MALIGN NEOPLASM OF [place] 05/22/2016 NAPOLEON GALLEGOS MD Ot 733.90 BONE CARTILAGE DIS NOS 05/22/2016 ADAM JON Ot 174.9 MALIGN NEOPL BREAST NOS 05/22/2016 ADAM JON Ot V76.11 SCRN MAMMO-HIGH RISK PT, MALIGNANT NEOPL 05/22/2016 ROULA MATAMOROS MD Ot M81.0 AGE-RELATED OSTEOPOROSIS W/O CURRENT PAT 05/22/2016 ROULA MATAMOROS MD Ot Z12.31 ENCNTR SCREEN MAMMOGRAM FOR MALIGNANT NE 05/23/2016 CARLA HIRSCH APRN Ot R25.1 TREMOR, UNSPECIFIED 05/24/2016 Ot V76.12 OTH SCREEN MAMMO- MALIGN NEOPLASM OF [place] 05/24/2016 Ot V58.61 ANTICOAGULANTS,LT,CURRENT USE 05/24/2016 Ot V58.83 ENCOUNTER FOR THERAPEUTIC DRUG MONITORIN 05/24/2016 Ot 786.05 SHORTNESS OF BREATH 05/24/2016 Ot 786.05 SHORTNESS OF BREATH 05/24/2016 Ot 796.4 ABN CLINICAL FINDING NEC 05/24/2016 Ot V76.12 OTH SCREEN MAMMO- MALIGN NEOPLASM OF [place] 05/24/2016 Ot 781.0 ABN INVOLUN MOVEMENT NEC 05/24/2016 ROSY PINO, NAPOLEON Denis Ot 793.82 INCONCLUSIVE MAMMOGRAM 05/24/2016 NAPOLEON GALLEGOS MD Ot V76.12 OTH SCREEN MAMMO-MALIGN NEOPLASM OF [place] 05/24/2016 NAPOLEON GALLEGOS MD Ot 733.90 BONE CARTILAGE DIS NOS 05/24/2016 ADAM JON Ot 174.9 MALIGN NEOPL BREAST NOS 05/24/2016 ADAM JON Ot V76.11 SCRN MAMMO-HIGH RISK PT, MALIGNANT NEOPL 05/24/2016 SHILOH PINO, ROULA Arce Ot M81.0 AGE-RELATED OSTEOPOROSIS W/O CURRENT PAT 05/24/2016 ROULA MATAMOROS MD Ot Z12.31 ENCNTR SCREEN MAMMOGRAM FOR MALIGNANT NE 05/24/2016 SNOOK, CARLA R UNSCRAMBLER Ot R25.1 TREMOR, UNSPECIFIED 06/14/2016 SNOOK, CARLA R UNSCRAMBLER Ot R25.1 TREMOR, UNSPECIFIED 06/20/2016 SNOOK, CARLA R UNSCRAMBLER Ot R25.1 TREMOR, UNSPECIFIED 06/21/2016 TAPIA DO, FLORENCIA Ot E78.5 HYPERLIPIDEMIA, UNSPECIFIED 06/21/2016 TAPIA DO, FLORENCIA Ot F41.1 GENERALIZED ANXIETY DISORDER 06/21/2016 TAPIA DO, FLORENCIA Ot G81.94 HEMIPLEGIA, UNSPECIFIED AFFECTING LEFT N 06/21/2016 TAPIA DO, FLORENCAI Ot I10 ESSENTIAL (PRIMARY) HYPERTENSION 06/21/2016 TAPIA DO, FLORENCIA Ot I63.9 CEREBRAL INFARCTION, UNSPECIFIED 06/21/2016 TAPIA DO, FLORENCIA Ot N39.0 URINARY TRACT INFECTION, SITE NOT SPECIF 06/21/2016 TAPIA DO, FLORENCIA Ot R29.810 FACIAL WEAKNESS 06/13/2018 MOOK PINO, SHREE Ot Z12.31 ENCNTR SCREEN MAMMOGRAM FOR MALIGNANT NE 06/19/2018 NAPOLEON GALLEGOS MD Ot 793.82 INCONCLUSIVE MAMMOGRAM 06/19/2018 NAPOLEON GALLEGOS MD, Ot V76.12 OTH SCREEN MAMMO-MALIGN NEOPLASM OF [place] 06/19/2018 NAPOLEON GALLEGOS MD Ot 733.90 BONE CARTILAGE DIS NOS 06/19/2018 DANAY, ADAM Bee Ot 174.9 MALIGN NEOPL BREAST NOS 06/19/2018 DANAY ADAM Bee Ot V76.11 SCRN MAMMO-HIGH RISK PT, MALIGNANT NEOPL 06/19/2018 ROULA MATAMOROS MD, Ot M81.0 AGE-RELATED OSTEOPOROSIS W/O CURRENT PAT 06/19/2018 ROULA MATAMOROS MD, Ot Z12.31 ENCNTR SCREEN MAMMOGRAM FOR MALIGNANT NE 06/19/2018 RADHACARLA Martin Rory VALENZUELA Ot R25.1 TREMOR, UNSPECIFIED 06/19/2018 SHREE DELVALLE MD, Ot Z12.31 ENCNTR SCREEN MAMMOGRAM FOR MALIGNANT NE 06/20/2018 SHREE DELVALLE MD, Ot Z12.31 ENCNTR SCREEN MAMMOGRAM FOR MALIGNANT NE 07/11/2018 SHREE DELVALLE MD, Ot Z12.31 ENCNTR SCREEN MAMMOGRAM FOR MALIGNANT NE 11/07/2018 OSMEL LINDA DC Ot M41.86 OTHER FORMS OF SCOLIOSIS, LUMBAR REGION 11/07/2018 OSMEL LINDA DC, Ot 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 Results Test Result Range Complete blood count (CBC) with automated white blood cell (WBC) differential - 06/20/16 11:01 Blood leukocytes automated count (number/volume) 6.1 10*3/uL 4.3-11.0 Blood erythrocytes automated count (number/volume) 5.12 10*6/uL 4.35-5.85 Venous blood hemoglobin measurement (mass/volume) 14.2 g/dL 11.5-16.0 Blood hematocrit (volume fraction) 45 % 35-52 Automated erythrocyte mean corpuscular volume 87 [foz_us] 80-99 Automated erythrocyte mean corpuscular hemoglobin (mass per erythrocyte) 28 pg 25-34 Automated erythrocyte mean corpuscular hemoglobin concentration measurement (mass/volume) 32 g/dL 32-36 Automated erythrocyte distribution width ratio 14.5 % 10.0- 14.5 Automated blood platelet count (count/volume) 269 10*3/uL 130-400 Automated blood platelet mean volume measurement 10.4 [foz_us] 7.4-10.4 Automated blood neutrophils/100 leukocytes 63 % 42-75 Automated blood lymphocytes/100 leukocytes 25 % 12-44 Blood monocytes/100 leukocytes 9 % 0-12 Automated blood eosinophils/100 leukocytes 3 % 0-10 Automated blood basophils/100 leukocytes 1 % 0-10 Blood neutrophils automated count (number/volume) 3.8 10*3 1.8-7.8 Blood lymphocytes automated count (number/volume) 1.5 10*3 1.0-4.0 Blood monocytes automated count (number/volume) 0.5 10*3 0.0- 1.0 Automated eosinophil count 0.2 10*3/uL 0.0-0.3 Automated blood basophil count (count/volume) 0.0 10*3/uL 0.0-0.1 Capillary blood glucose measurement by glucometer (mass/volume) - 06/20/16 11:03 Capillary blood glucose measurement by glucometer (mass/volume) 91 mg/dL 70-110 PT panel in platelet poor plasma by coagulation assay - 06/20/16 11:20 Prothrombin time (PT) in platelet poor plasma by coagulation assay 13.0 s 12.2-14.7 INR in platelet poor plasma or blood by coagulation assay 1.0 0.8-1.4 Activated partial thromboplastin time (aPTT) in platelet poor plasma bycoagulation assay - 06/20/16 11:20 Activated partial thromboplastin time (aPTT) in platelet poor plasma bycoagulation assay 28 s 24-35 Fibrin D-dimer FEU measurement in platelet poor plasma (mass/volume) - 06/20/16 11:20 Fibrin D-dimer FEU measurement in platelet poor plasma (mass/volume) 0.71 ug/mL 0.00-0.49 Comprehensive metabolic panel - 06/20/16 11:20 Serum or plasma sodium measurement (moles/volume) 141 mmol/L 135-145 Serum or plasma potassium measurement (moles/volume) 3.6 mmol/L 3.6-5.0 Serum or plasma chloride measurement (moles/volume) 104 mmol/L 98-107 Carbon dioxide 29 mmol/L 21-32 Serum or plasma anion gap determination (moles/volume) 8 mmol/L 5-14 Serum or plasma urea nitrogen measurement (mass/volume) 15 mg/dL 7-18 Serum or plasma creatinine measurement (mass/volume) 0.76 mg/dL 0.60-1.30 Serum or plasma urea nitrogen/creatinine mass ratio 20 NRG Serum or plasma creatinine measurement with calculation of estimated glomerular filtration rate > NRG Serum or plasma glucose measurement (mass/volume) 109 mg/dL 70-105 Serum or plasma calcium measurement (mass/volume) 9.0 mg/dL 8.5-10.1 Serum or plasma total bilirubin measurement (mass/volume) 0.5 mg/dL 0.1-1.0 Serum or plasma alkaline phosphatase measurement (enzymatic activity/volume) 81 U/L 40-136 Serum or plasma aspartate aminotransferase measurement (enzymatic activity/volume) 17 U/L 5-34 Serum or plasma alanine aminotransferase measurement (enzymatic activity/volume) 16 U/L 0-55 Serum or plasma protein measurement (mass/volume) 6.6 g/dL 6.4-8.2 Serum or plasma albumin measurement (mass/volume) 3.8 g/dL 3.2-4.5 Serum or plasma troponin i.cardiac measurement (mass/volume) - 06/20/16 11:20 Serum or plasma troponin i.cardiac measurement (mass/volume) < ng/mL <0.30 Complete urinalysis with reflex to culture - 06/20/16 11:45 Urine color determination YELLOW NRG Urine clarity determination CLEAR NRG Urine pH measurement by test strip 6.5 5-9 Specific gravity of urine by test strip 1.015 1.016-1.022 Urine protein assay by test strip, semi-quantitative NEGATIVE NEGATIVE Urine glucose detection by automated test strip NEGATIVE NEGATIVE Erythrocytes detection in urine sediment by light microscopy NEGATIVE NEGATIVE Urine ketones detection by automated test strip NEGATIVE NEGATIVE Urine nitrite detection by test strip POSITIVE NEGATIVE Urine total bilirubin detection by test strip NEGATIVE NEGATIVE Urine urobilinogen measurement by automated test strip (mass/volume) NORMAL NORMAL Urine leukocyte esterase detection by dipstick 2+ NEGATIVE Automated urine sediment erythrocyte count by microscopy (number/high power field) RARE NRG Automated urine sediment leukocyte count by microscopy (number/high power field) [HPF] NRG Bacteria detection in urine sediment by light microscopy LARGE NRG Squamous epithelial cells detection in urine sediment by light microscopy 2-5 NRG Crystals detection in urine sediment by light microscopy NONE NRG Casts detection in urine sediment by light microscopy NONE NRG Mucus detection in urine sediment by light microscopy NEGATIVE NRG Complete urinalysis with reflex to culture YES NRG Bacterial urine culture - 06/20/16 11:45 Bacterial urine culture [id number] NRG COLONY COUNT <10,000 NRG FTX;REPORTABLE SENSITIVITY REPORTED 06/21/16 16:45 NR Bacterial susceptibility panel - 06/20/16 11:45 Gentamicin susceptibility test by minimum inhibitory concentration >= NRG Trimethoprim/sulfamethoxazole susceptibility test by minimum inhibitoryconcentration <= NRG Ampicillin susceptibility test by minimum inhibitory concentration >= NRG Tobramycin susceptibility test by minimum inhibitory concentration 8 NRG Cefazolin susceptibility test by minimum inhibitory concentration <= NRG Ceftriaxone susceptibility test by minimum inhibitory concentration <= NRG Ampicillin/sulbactam susceptibility test by minimum inhibitory concentration 16 NRG Piperacillin/tazobactam susceptibility test by minimum inhibitory concentration <= NRG Ciprofloxacin susceptibility test by minimum inhibitory concentration >= NRG Meropenem susceptibility test by minimum inhibitory concentration <= NRG Nitrofurantoin susceptibility test by minimum inhibitory concentration <= NRG Aztreonam susceptibility test by minimum inhibitory concentration <= NRG Extended spectrum beta lactamase (ESBL) producing bacteria susceptibility test by minimum inhibitory concentration - NR Complete blood count (CBC) with automated white blood cell (WBC) differential - 06/21/16 03:28 Blood leukocytes automated count (number/volume) 7.1 10*3/uL 4.3-11.0 Blood erythrocytes automated count (number/volume) 5.41 10*6/uL 4.35-5.85 Venous blood hemoglobin measurement (mass/volume) 15.0 g/dL 11.5-16.0 Blood hematocrit (volume fraction) 47 % 35-52 Automated erythrocyte mean corpuscular volume 86 [foz_us] 80-99 Automated erythrocyte mean corpuscular hemoglobin (mass per erythrocyte) 28 pg 25-34 Automated erythrocyte mean corpuscular hemoglobin concentration measurement (mass/volume) 32 g/dL 32-36 Automated erythrocyte distribution width ratio 14.5 % 10.0- 14.5 Automated blood platelet count (count/volume) 58 10*3/uL 130- 400 Automated blood platelet mean volume measurement 11.3 [foz_us] 7.4-10.4 Automated blood neutrophils/100 leukocytes 63 % 42-75 Automated blood lymphocytes/100 leukocytes 25 % 12-44 Blood monocytes/100 leukocytes 10 % 0-12 Automated blood eosinophils/100 leukocytes 2 % 0-10 Automated blood basophils/100 leukocytes 1 % 0-10 Blood neutrophils automated count (number/volume) 4.4 10*3 1.8-7.8 Blood lymphocytes automated count (number/volume) 1.8 10*3 1.0-4.0 Blood monocytes automated count (number/volume) 0.7 10*3 0.0- 1.0 Automated eosinophil count 0.2 10*3/uL 0.0-0.3 Automated blood basophil count (count/volume) 0.0 10*3/uL 0.0-0.1 Blood blood smear finding identification by light microscopy YES [facility] Comprehensive metabolic panel - 06/21/16 03:28 Serum or plasma sodium measurement (moles/volume) 143 mmol/L 135-145 Serum or plasma potassium measurement (moles/volume) 3.5 mmol/L 3.6-5.0 Serum or plasma chloride measurement (moles/volume) 106 mmol/L 98-107 Carbon dioxide 25 mmol/L 21-32 Serum or plasma anion gap determination (moles/volume) 12 mmol/L 5-14 Serum or plasma urea nitrogen measurement (mass/volume) 7 mg/dL 7-18 Serum or plasma creatinine measurement (mass/volume) 0.69 mg/dL 0.60-1.30 Serum or plasma urea nitrogen/creatinine mass ratio 10 NRG Serum or plasma creatinine measurement with calculation of estimated glomerular filtration rate > NR Serum or plasma glucose measurement (mass/volume) 94 mg/dL 70-105 Serum or plasma calcium measurement (mass/volume) 9.0 mg/dL 8.5-10.1 Serum or plasma total bilirubin measurement (mass/volume) 0.6 mg/dL 0.1-1.0 Serum or plasma alkaline phosphatase measurement (enzymatic activity/volume) 85 U/L 40-136 Serum or plasma aspartate aminotransferase measurement (enzymatic activity/volume) 20 U/L 5-34 Serum or plasma alanine aminotransferase measurement (enzymatic activity/volume) 17 U/L 0-55 Serum or plasma protein measurement (mass/volume) 6.7 g/dL 6.4-8.2 Serum or plasma albumin measurement (mass/volume) 3.9 g/dL 3.2-4.5 Serum or plasma phosphate measurement (mass/volume) - 06/21/16 03:28 Serum or plasma phosphate measurement (mass/volume) 3.5 mg/dL 2.3-4.7 Magnesium - 06/21/16 03:28 Magnesium 2.2 mg/dL 1.8-2.4 Lipid 1996 panel - 06/21/16 03:28 Serum or plasma triglyceride measurement (mass/volume) 86 mg/dL <150 Serum or plasma cholesterol measurement (mass/volume) 184 mg/dL < 200 Serum or plasma cholesterol in HDL measurement (mass/volume) 50 mg/dL 40-60 Cholesterol in LDL [mass/volume] in serum or plasma by direct assay 115 mg/dL 1-129 Serum or plasma cholesterol in VLDL measurement (mass/volume) 17 mg/dL 5-40 Automated blood platelet count (count/volume) - 06/21/16 07:02 Automated blood platelet count (count/volume) 284 10*3/uL 130-400 Encounters ACCT No. Visit Date/Time Discharge Status Pt. Type Provider Facility Loc./Unit Complaint [id number] 11/26/2018 08:03:00 11/26/2018 23:59:59 CLS Outpatient SHREE DELVALLE MD [facility] RAD ABN MAMMO [id number] 10/17/2018 11:53:00 10/17/2018 23:59:59 CLS Outpatient OSMEL LINDA DC [facility] RAD ACUTE LOW BACK PAIN [id number] 06/19/2018 14:33:00 06/19/2018 23:59:59 CLS Outpatient SHREE DELVALLE MD [facility] RAD SCREENING [id number] 04/03/2017 10:15:00 04/03/2017 23:59:59 CLS Preadmit OTHER, UNLISTED [facility] RAD SCREENING [id number] 06/20/2016 14:25:00 06/21/2016 14:37:00 DIS Inpatient FLORENCIA TAPIA DO [facility] ICU CVA UTI [id number] 05/22/2016 13:39:00 05/22/2016 23:59:59 CLS Outpatient CARLA HIRSCH R UNSCRAMBLER [facility] RAD TREMORS [id number] 07/28/2015 10:50:00 07/28/2015 23:59:59 CLS Outpatient ROULA MATAMOROS MD [facility] RAD SCREENING [id number] 06/08/2014 09:49:00 06/08/2014 23:59:59 CLS Outpatient ADAM JON [facility] RAD SCREENING [id number] 10/02/2013 12:41:00 10/02/2013 23:59:59 CLS Outpatient [id number] 07/17/2013 11:18:00 07/17/2013 23:59:59 CLS Outpatient NAPOLEON GALLEGOS MD [facility] RAD SCREENING,KYPHOSEOLOSIS [id number] 05/25/2013 14:26:00 05/25/2013 23:59:59 CLS Outpatient NAPOLEON GALLEGOS MD [facility] RAD SCREENING [id number] 06/08/2014 09:48:00 Document Registration [id number] 07/09/2012 07:55:00 Document Registration [id number] 05/14/2012 15:02:00 Document Registration [id number] 01/10/2012 10:34:00 Document Registration [id number] 01/09/2012 14:20:00 Document Registration [id number] 09/20/2011 10:45:00 Document Registration [id number] 05/07/2011 08:48:00 Document Registration [id number] 05/05/2010 09:32:00 Document Registration [id number] 05/04/2009 13:33:00 Document Registration [id number] 01/12/2009 13:36:00 Document Registration [id number] 12/20/2008 09:09:00 Document Registration
[2018-12-13] MEDS ORDERED: ROPINIROLE 1 MG (23:30)
[2018-12-13] MEDS ORDERED: HYDROCODONE (23:30)
[2018-12-13] MEDS ORDERED: ACETAMINOPHEN (23:30)
[2018-12-14] MEDS ORDERED: fentaNYL INJECTION 100 MCG/2 ML AMP IM STA (01:11)
--- NOTE | 2018-12-14 01:19 | ED Upper Extremity ---
General Chief Complaint: Trauma-Non Activation Stated Complaint: RT ARM INJURY Nursing Triage Note: fell getting out of the bathtub injured her right arm Nursing Sepsis Screen: No Definite Risk Source: patient History of Present Illness Date Seen by Provider: Dec 13, 2018 Time Seen by Provider: 23:32 Initial Comments PT ARRIVES VIA POV FROM HOME PT STATES SHE WAS GETTING OUT OF THE BATHTUB AND LOST HER BALANCE AND FELL, LANDING ON HER LEFT SHOULDER AREA OCCURRE AT 2130 TONIGHT DID NOT HIT HEAD AND NO LOSS OF CONSCIOUSNESS NO NECK PAIN PT HAS CHRONIC BACK PAIN AND IS NO DIFFERENT THAN NORMAL--PT SEES DR. HARTLEY AND IS TO HAVE AN MRI OF HER BACK ON Saturday12/16/18 PT HAS CHRONIC SHOULDER PAIN AND HAS HAD LEFT SHOULDER REPLACEMENT IN THE PAST, BY DR. HOOVER. NO NEW PARESTHESIAS OR MOTOR DEFICITS--PT HAS HAD PRIOR CVA WITH LEFT SIDE WEAKNESS AND FACIAL DROOP NO HEADACHE NO CHEST OR ABDOMINAL INJURY NO HIP OR LEG INJURY AND IS ABLE TO WALK WITHOUT DIFFICULTY DENIES ANY OTHER INJURIES PT TAKES HYDROCODONE EVERY 4 HOURS AND TOOK HER REGULAR DOSE AT 1930 TONIGHT Location Injury Occurred: home PCP: DR. DELVALLE, [place] Allergies and Home Medications Allergies Coded Allergies: Sulfa (Sulfonamide Antibiotics) (Verified Allergy, Unknown, 12/13/18) Home Medications Aspirin 325 Mg Tablet, 325 MG PO DAILY@0900 Prescribed by: FLORENCIA TAPIA on 06/21/16 1155 Cholecalciferol (Vitamin D3) 2,000 Unit Capsule, 2,000 UNIT PO DAILY, (Reported) Diazepam 10 Mg Tablet, 10 MG PO HS PRN for ANXIETY, (Reported) Diclofenac Sodium 50 Mg Tablet.dr, 50 MG PO BID, (Reported) Docusate Sodium 100 Mg Capsule, 200 MG PO DAILY, (Reported) TAKES 2 (100 MG) CAPSULES Glucosamine/D3/Boswellia [place] 1 Each Tablet, 1 TAB PO DAILY, (Reported) Lovastatin 20 Mg Tablet, 20 MG PO DAILY Prescribed by: FLORENCIA TAPIA on 06/21/16 1155 Metoprolol Succinate 25 Mg Tab.er.24h, 25 MG PO DAILY, (Reported) Multivitamin 1 Each Tablet, 1 TAB PO DAILY, (Reported) Tramadol HCl 50 Mg Tablet, 50-100 MG PO Q6H PRN for PAIN, (Reported) Patient Home Medication List Home Medication List Reviewed: Yes Review of Systems Constitutional: no symptoms reported Respiratory: no symptoms reported Cardiovascular: no symptoms reported Gastrointestinal: no symptoms reported Genitourinary: no symptoms reported Musculoskeletal: see HPI Skin: no symptoms reported Psychiatric/Neurological: Pre-Existing Deficit Past [id number]-Fwrbjj-Qkdglz Hx Patient Social History Alcohol Use: Denies Use Recreational Drug Use: No Type Used: Cigarettes Former Smoker, Quit: Jun 17, 1999 Recent Foreign Travel: No Contact w/Someone Who Travel: No Recent Infectious Disease Expo: No Recent Hopitalizations: No Immunizations Up To Date Date of Pneumonia Vaccine: Feb 20, 2016 Date of Influenza Vaccine: Mar 20, 2016 Seasonal Allergies Seasonal Allergies: Yes Past Medical History Surgeries: Yes (SPLEENECTOMY, BILAT KNEES,BACK SURGERY; ANKLE SURGERY; LEFT SHOULDER REPLACEMENT) Abdominal, Hysterectomy, Orthopedic, Tonsillectomy Respiratory: No Cardiac: Yes Hypertension Neurological: Yes (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, essential tremor; 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 2.0oz. [id number]; 24.4 BMI Method:Stated General Appearance: WD/WN, no apparent distress Neck: non-tender, full range of motion Cardiovascular: regular rate, rhythm, no murmur Respiratory: normal breath sounds Back: no CVA tenderness, no vertebral tenderness Shoulder: bone tenderness, limited ROM, pain, soft tissue tenderness, swelling Elbow/Forearm: normal inspection Wrist: Yes normal inspection Hand: normal inspection Neurologic/Tendon: normal sensation, normal motor functions, normal tendon functions Neurologic/Psychiatric: alert, normal mood/affect, oriented x 3, other (OLD LEFT SIDE WEAKNESS FROM PRIOR CVA WITH LEFT FACIAL DROOP ) Skin: normal color, warm/dry Procedures/Interventions Splinting and Joint Reduction : Immobilizers: XL Shoulder Progress/Results/Core Measures Results/Orders My Orders Orders - GILBERTO ESPOSITO DO Humerus, Right, 2 Views (12/13/18 23:31) Shoulder Immoblizer (12/14/18 01:00) Fentanyl Injection (Sublimaze Injection (12/14/18 01:11) Vital Signs/I&O Blood Pressure Mean: 106 Diagnostic Imaging Comments XRAYS RIGHT HUMERUS--IMPACTED FRACTURE HUMERAL NECK, PENDING RADIOLOGIST REVIEW Reviewed: Reviewed by Me Departure Impression Primary Impression: Closed right humeral fracture Disposition: HOME, SELF-CARE Condition: Stable Departure-Patient Inst. Referrals: NO,LOCAL PHYSICIAN (PCP) Primary Care Physician TY HOOVER DO Patient Instructions: How to Use a Shoulder Sling, Upper Arm Fracture Add. Discharge Instructions: ICE TO AREA AT 20 MINUTE INTERVALS WEAR SHOULDER IMMOBILIZER AT ALL TIMES TAKE YOUR HYDROCODONE EVERY 4 HOURS NEEDED FOR PAIN FOLLOW UP WITH DR. HOOVER NEXT WEEK FOR FURTHER CARE, CALL ON SATURDAY TO SCHEDULE APPOINTMENT All discharge instructions reviewed with patient and/or family. Voiced understanding. GILBERTO ESPOSITO DO Dec 14, 2018 01:18
[2018-12-14 01:59] VITALS: BP 137/78
--- NOTE | 2018-12-14 06:36 | Diagnostic Imaging Report ---
Indication: Right shoulder injury pain COMPARISON: None. FINDINGS: 2 views right humerus demonstrate nondisplaced proximal humeral neck fracture. There is no dislocation. Visualized elbow is unremarkable. Impression: Small humeral fracture without significant displacement. Dictated by: Dictated on workstation # [id number]
== END 2018-12-14 01:59 | disposition home or self-care (01) ==
LOC: EDUNIT# 22:28 → ER 22:30
DX: S42.301A Unspecified fracture of shaft of humerus, right arm, initial encounter for closed fracture (principal); I10 Essential (primary) hypertension; F41.9 Anxiety disorder, unspecified; Z96.653 Presence of artificial knee joint, bilateral; Z86.73 Personal history of transient ischemic attack (TIA), and cerebral infarction without residual deficits; Z88.2 Allergy status to sulfonamides; Z79.82 Long term (current) use of aspirin; Z87.891 Personal history of nicotine dependence; Z90.710 Acquired absence of both cervix and uterus; Z90.89 Acquired absence of other organs; Z96.642 Presence of left artificial hip joint; W01.0XXA Fall on same level from slipping, tripping and stumbling without subsequent striking against object, initial encounter; Y92.002 Bathroom of unspecified non-institutional (private) residence as the place of occurrence of the external cause
CPT/HCPCS: 73060

== ENCOUNTER 2019-01-19 04:52 | Inpatient (IN) | payer MEDICARE ==
[~2019-01-19] VITALS: Ht 170.2 cm; Wt 55.8 kg
[2019-01-19] VITALS (7 sets, daily range): BP systolic 130–158; BP diastolic 74–86
[~2019-01-19 04:52] MED LIST changes: +ACETAMINOPHEN; +HYDROCODONE; +ROPINIROLE 1 MG
[2019-01-19] MEDS ORDERED: meTOprolol 5 MG/5 ML (LOPRESSOR) VIAL ONE (05:05)
--- OUTSIDE RECORDS SUMMARY | 2019-01-19 05:13 | XMS REPORT | Continuity of Care Document ---
Author Organization Unknown Address Unknown Phone Unavailable Allergies Active Description Code Type Severity Reaction Onset Reported/Identified Relationship to Patient Clinical Status Yes Sulfa (Sulfonamide Antibiotics) [id number] Drug Allergy Unknown N/A 12/13/2018 Medications There is no data. Problems Date [...] Ot 781.0 ABN INVOLUN MOVEMENT NEC 05/24/2016 NAPOLEON GALLEGOS MD Ot 793.82 INCONCLUSIVE MAMMOGRAM 05/24/2016 NAPOLEON GALLEGOS MD Ot V76.12 OTH SCREEN MAMMO-MALIGN NEOPLASM OF [place] 05/24/2016 NAPOLEON GALLEGOS MD Ot 733.90 BONE CARTILAGE DIS NOS 05/24/2016 ADAM JON Ot 174.9 MALIGN NEOPL BREAST NOS 05/24/2016 ADAM JON Ot V76.11 SCRN MAMMO-HIGH RISK PT, MALIGNANT NEOPL 05/24/2016 ROULA MATAMOROS MD, Ot M81.0 AGE-RELATED OSTEOPOROSIS W/O CURRENT PAT 05/24/2016 ROULA MATAMOROS MD Ot Z12.31 ENCNTR SCREEN MAMMOGRAM FOR MALIGNANT NE 05/24/2016 SNOOK, CARLA R MANAGER ORANGE Ot R25.1 TREMOR, UNSPECIFIED 06/14/2016 SNOOK, CARLA R MANAGER ORANGE Ot R25.1 TREMOR, UNSPECIFIED 06/20/2016 SNOOK, CARLA R MANAGER ORANGE Ot R25.1 TREMOR, UNSPECIFIED 06/21/2016 TAPIA DO, FLORENCIA Ot E78.5 HYPERLIPIDEMIA, UNSPECIFIED 06/21/2016 TAPIA DO, FLORENCIA Ot F41.1 GENERALIZED ANXIETY DISORDER 06/21/2016 TAPIA DO, FLORENCIA Ot G81.94 HEMIPLEGIA, UNSPECIFIED AFFECTING LEFT N 06/21/2016 TAPIA DO, FLORENCIA Ot I10 ESSENTIAL (PRIMARY) HYPERTENSION 06/21/2016 TAPIA DO, FLORENCIA Ot I63.9 CEREBRAL INFARCTION, UNSPECIFIED 06/21/2016 TAPIA DO, FLORENCIA Ot N39.0 URINARY TRACT INFECTION, SITE NOT SPECIF 06/21/2016 TAPIA DO, FLORENCIA Ot R29.810 FACIAL WEAKNESS 06/13/2018 MOOK PINO, SHREE Ot Z12.31 ENCNTR SCREEN MAMMOGRAM FOR MALIGNANT NE 06/19/2018 NAPOLEON GALLEGOS MD Ot 793.82 INCONCLUSIVE MAMMOGRAM 06/19/2018 NAPOLEON GALLEGOS MD Ot V76.12 OTH SCREEN MAMMO-MALIGN NEOPLASM OF [place] 06/19/2018 NAPOLEON GALLEGOS MD Ot 733.90 BONE CARTILAGE DIS NOS 06/19/2018 DANAY, ADAM Bee Ot 174.9 MALIGN NEOPL BREAST NOS 06/19/2018 MARCOS JONMARGARET Bee Ot V76.11 SCRN MAMMO-HIGH RISK PT, MALIGNANT NEOPL 06/19/2018 ROULA MATAMOROS MD Ot M81.0 AGE-RELATED OSTEOPOROSIS W/O CURRENT PAT 06/19/2018 ROULA MATAMOROS MD, Ot Z12.31 ENCNTR SCREEN MAMMOGRAM FOR MALIGNANT NE 06/19/2018 CARLA HIRSCH Rory VALENZUELA Ot R25.1 TREMOR, UNSPECIFIED 06/19/2018 SHREE DELVALLE MD, Ot Z12.31 ENCNTR SCREEN MAMMOGRAM FOR MALIGNANT NE 06/20/2018 SHREE DELVALLE MD, Ot Z12.31 ENCNTR SCREEN MAMMOGRAM FOR MALIGNANT NE 07/11/2018 SHREE DELVALLE MD Ot Z12.31 ENCNTR SCREEN MAMMOGRAM FOR MALIGNANT NE 11/07/2018 OSMEL LINDA DC Ot M41.86 OTHER FORMS OF SCOLIOSIS, LUMBAR REGION 11/07/2018 OSMEL LINDA DC Ot M47.817 SPONDYLS W/O MYELOPATHY OR RADICULOPATHY [...] OTH ABN AND INCONCLUSIVE FINDINGS ON DX 12/14/2018 GILBERTO ESPOSITO DO Ot F41.9 ANXIETY DISORDER, UNSPECIFIED 12/14/2018 GILBERTO ESPOSITO DO Ot I10 ESSENTIAL (PRIMARY) HYPERTENSION 12/14/2018 GILBERTO ESPOSITO DO Ot S42.301A UNSP FRACTURE OF SHAFT OF HUMERUS, RIGHT 12/14/2018 GILBERTO ESPOSITO DO Ot S49.91XA UNSP INJURY OF RIGHT SHOULDER AND UPPER 12/14/2018 VAIBHAV GILBERTO BLAKE Ot W01.0XXA FALL SAME LEV FROM SLIP/TRIP W/O STRIKE 12/14/2018 GILBERTO ESPOSITO DO Ot Y92.002 BATHRM OF [facility] NON-INSTITUT RESDNCE SNGL 12/14/2018 GILBERTO ESPOSITO DO Ot Z79.82 PENITENTIARY (CURRENT) USE OF ASPIRIN 12/14/2018 VAIBHAV GILBERTO BLAKE Ot Z86.73 PRSNL HX OF TIA (TIA), AND CEREB INFRC W 12/14/2018 GILBERTO ESPOSITO DO Ot Z87.891 PERSONAL HISTORY OF NICOTINE DEPENDENCE 12/14/2018 GILBERTO ESPOSITO DO, Ot Z88.2 ALLERGY STATUS TO SULFONAMIDES STATUS 12/14/2018 VAIBHAV GILBERTO BLAKE Ot Z90.710 ACQUIRED ABSENCE OF BOTH CERVIX AND UTER 12/14/2018 VAIBHAV GILBERTO BLAKE Ot Z90.89 ACQUIRED ABSENCE OF OTHER ORGANS 12/14/2018 VAIBHAV GILBERTO BLAKE Ot Z96.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 12/14/2018 GILBERTO ESPOSITO DO Ot Z96.653 PRESENCE OF ARTIFICIAL KNEE JOINT, BILAT 12/16/2018 GILBERTO ESPOSITO DO, Ot F41.9 ANXIETY DISORDER, UNSPECIFIED 12/16/2018 VAIBHAV GILBERTO BLAKE Ot I10 ESSENTIAL (PRIMARY) HYPERTENSION 12/16/2018 GILBERTO ESPOSITO DO Ot S42.301A UNSP FRACTURE OF SHAFT OF HUMERUS, RIGHT 12/16/2018 VAIBHAV GILBERTO BLAKE Ot S49.91XA UNSP INJURY OF RIGHT SHOULDER AND UPPER 12/16/2018 GILBERTO ESPOSITO DO Ot W01.0XXA FALL SAME LEV FROM SLIP/TRIP W/O STRIKE 12/16/2018 GILBERTO ESPOSITO DO Ot Y92.002 [facility] NON-INSTITUT RESDNCE SNGL 12/16/2018 GILBERTO ESPOSITO DO, Ot Z79.82 SOLUTIONS OPERATOR (CURRENT) USE OF ASPIRIN 12/16/2018 GILBERTO ESPOSITO DO Ot Z86.73 PRSNL HX OF TIA (TIA), AND CEREB INFRC W 12/16/2018 GILBERTO ESPOSITO DO Ot Z87.891 PERSONAL HISTORY OF NICOTINE DEPENDENCE 12/16/2018 GILBERTO ESPOSITO DO Ot Z88.2 ALLERGY STATUS TO SULFONAMIDES STATUS 12/16/2018 GILBERTO ESPOSITO DO Ot Z90.710 ACQUIRED ABSENCE OF BOTH CERVIX AND UTER 12/16/2018 GILBERTO ESPOSITO DO Ot Z90.89 ACQUIRED ABSENCE OF OTHER ORGANS 12/16/2018 GILBERTO ESPOSITO DO Ot Z96.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 12/16/2018 GILBERTO ESPOSITO DO Ot Z96.653 PRESENCE OF ARTIFICIAL KNEE JOINT, BILAT Procedures There is no data. Results Test [...] culture - 06/20/16 11:45 Bacterial urine culture [id number] NRG COLONY COUNT <10,000 NRG FTX;REPORTABLE SENSITIVITY REPORTED 06/21/16 16:45 NRG Bacterial susceptibility panel - 06/20/16 11:45 Gentamicin [...] smear finding identification by light microscopy YES [facility] Comprehensive metabolic panel - 06/21/16 [...] NRG Serum or plasma glucose measurement (mass/volume) 94 [...] Status Pt. Type Provider Facility Loc./Unit Complaint [id number] 12/13/2018 22:30:00 12/14/2018 01:59:00 DIS Emergency VAIBHAV GILBERTO BLAKE Via [facility] ER RT ARM INJURY [id number] 11/26/2018 08:03:00 11/26/2018 23:59:59 CLS Outpatient SHREE DELVALLE MD Via [facility] RAD ABN MAMMO [id number] 10/17/2018 11:53:00 10/17/2018 23:59:59 CLS Outpatient OSMEL LINDA DC Via [facility] RAD ACUTE LOW BACK PAIN [id number] 06/19/2018 14:33:00 06/19/2018 23:59:59 CLS Outpatient SHREE DELVALLE MD Via [facility] RAD SCREENING [id number] 04/03/2017 10:15:00 04/03/2017 23:59:59 CLS Preadmit OTHER, UNLISTED Via [facility] RAD SCREENING [id number] 06/20/2016 14:25:00 06/21/2016 14:37:00 DIS Inpatient FLORENCIA TAPIA DO Via [facility] ICU CVA UTI [id number] 05/22/2016 13:39:00 05/22/2016 23:59:59 CLS Outpatient SNCARLA OH R MANAGER ORANGE Via [facility] RAD TREMORS [id number] 07/28/2015 10:50:00 07/28/2015 23:59:59 CLS Outpatient ROULA MATAMOROS MD Via [facility] RAD SCREENING [id number] 06/08/2014 09:49:00 06/08/2014 23:59:59 CLS Outpatient ADAM JON Via [facility] RAD SCREENING [id number] 10/02/2013 12:41:00 10/02/2013 23:59:59 CLS Outpatient [id number] 07/17/2013 11:18:00 07/17/2013 23:59:59 CLS Outpatient NAPOLEON GALLEGOS MD Via [facility] RAD SCREENING,KYPHOSEOLOSIS [id number] 05/25/2013 14:26:00 05/25/2013 23:59:59 CLS Outpatient NAPOLEON GALLEGOS MD Via [facility] RAD SCREENING [id number] 06/08/2014 09:48:00 Document Registration [id number] 07/09/2012 07:55:00 Document Registration [id number] 05/14/2012 15:02:00 Document Registration [id number] 01/10/2012 10:34:00 Document Registration [id number] 01/09/2012 14:20:00 Document Registration [id number] 09/20/2011 10:45:00 Document Registration [id number] 05/07/2011 08:48:00 Document Registration [id number] 05/05/2010 09:32:00 Document Registration [id number] 05/04/2009 13:33:00 Document Registration [id number] 01/12/2009 13:36:00 Document Registration [id number] 12/20/2008 09:09:00 Document Registration
[2019-01-19] MEDS ORDERED: meTOprolol 5 MG/5 ML (LOPRESSOR) VIAL IV ONE (05:15)
[2019-01-19] MEDS ORDERED: ASPIRIN 81 MG CHEW (CHILDREN'S ASA) PO ONE (05:15)
--- NOTE | 2019-01-19 05:22 | ED Chest Pain ---
General Chief Complaint: Chest Pain Stated Complaint: CHEST PAIN Source: patient, family Exam Limitations: no limitations History of Present Illness Date Seen by Provider: Jan 19, 2019 Time Seen by Provider: 04:42 Initial Comments Patient presents to ER by private conveyance with family and chief complaint that she began to experience chest pain across the anterior chest about an hour ago radiating up to her left neck and jaw. She has no previous history of cor onary disease or CHF. No edema. No shortness of breath or history of lung disease. She has occasional use of antiacids but no strong history of GERD or anxiety. She has not taken anything for the pain. She does take a daily baby aspirin. She does not history of dysrhythmias with atrial fibrillation and is not on any blood thinners. 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 She follows with Dr. Ahuja, primary care in [place], [place] and has a history of fracture 5 weeks ago for right proximal humerus treated by Dr. Tovar outpatient. She has a back surgery by Dr. Keller in the past. She does not see a student teacher for any reason. She does not smoke but she did over 25 years ago. She denies illicit drug use or significant alcohol history. She took a tramadol at 1:00 in the morning for all over body aches. Allergies and Home Medications Allergies Coded Allergies: Sulfa (Sulfonamide Antibiotics) (Verified Allergy, Unknown, 12/13/18) Home Medications Aspirin 325 Mg Tablet, 325 MG PO DAILY@0900 Prescribed by: FLORENCIA TAPIA on 06/21/16 1155 Cholecalciferol (Vitamin D3) 2,000 Unit Capsule, 2,000 UNIT PO DAILY, (Reported) Diazepam 10 Mg Tablet, 10 MG PO HS PRN for ANXIETY, (Reported) Diclofenac Sodium 50 Mg Tablet.dr, 50 MG PO BID, (Reported) Docusate Sodium 100 Mg Capsule, 200 MG PO DAILY, (Reported) TAKES 2 (100 MG) CAPSULES Glucosamine/D3/Boswellia [place] 1 Each Tablet, 1 TAB PO DAILY, (Reported) Lovastatin 20 Mg Tablet, 20 MG PO DAILY Prescribed by: FLORENCIA TAPIA on 06/21/16 1155 Metoprolol Succinate 25 Mg Tab.er.24h, 25 MG PO DAILY, (Reported) Multivitamin 1 Each Tablet, 1 TAB PO DAILY, (Reported) Tramadol HCl 50 Mg Tablet, 50-100 MG PO Q6H PRN for PAIN, (Reported) Patient Home Medication List Home Medication List Reviewed: Yes Review of Systems Review of Systems Constitutional: No chills, No diaphoresis, No dizziness EENTM: No Blurred Vision, No Double Vision Respiratory: Denies Cough, Denies Shortness of Air Cardiovascular: See HPI, Chest Pain; Denies Edema Gastrointestinal: Denies Abdomen Distended, Denies Abdominal Pain Genitourinary: Denies Burning, Denies Discharge Musculoskeletal: No back pain, No joint pain Skin: No pruritus, No rash Psychiatric/Neurological: Denies Headache, Denies Numbness Past [id number]-Ehtbsf-Xkbbww Hx Patient Social History Alcohol Use: Denies Use Recreational Drug Use: No Smoking Status: Former Smoker Type Used: Cigarettes Former Smoker, Quit: Jun 17, 1999 Recent Hopitalizations: No Immunizations Up To Date Date of Pneumonia Vaccine: Feb 20, 2016 Date of Influenza Vaccine: Mar 20, 2016 Seasonal Allergies Seasonal Allergies: Yes Past Medical History Surgeries: Yes Abdominal, Hysterectomy, Orthopedic, Tonsillectomy Respiratory: No Cardiac: Yes Hypertension Neurological: Yes Stroke Reproductive Disorders: No 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 2.0oz. 66.399408aw; 24.4 BMI Method:Stated General Appearance: WD/WN, Anxious HEENT: PERRL/EOMI, Normal ENT Inspection, Pharynx Normal, Moist Mucous Membranes Neck: Full Range of Motion, Normal Inspection Respiratory: Chest Non Tender, Lungs Clear, Normal Breath Sounds, No Accessory Muscle Use, No Respiratory Distress Cardiovascular: Regular Rate, Rhythm, No Edema, Normal Peripheral Pulses Gastrointestinal: Normal Bowel Sounds, No Organomegaly, Non Tender, Soft Extremity: Normal Capillary Refill, Normal Inspection, No Pedal Edema Neurologic/Psychiatric: Alert, Oriented x3, No Motor/Sensory Deficits Skin: Normal Color, Warm/Dry Progress/Results/Core Measures Results/Orders Lab Results Laboratory Tests Test 01/19/19 05:00 Range/Units White Blood Count 8.6 4.3-11.0 10^3/uL Red Blood Count 5.31 4.35-5.85 10^6/uL Hemoglobin 14.7 11.5-16.0 G/DL Hematocrit 48 35-52 % Mean Corpuscular Volume 90 80-99 FL Mean Corpuscular Hemoglobin 28 25-34 PG Mean Corpuscular Hemoglobin Concent 31 L 32-36 G/DL Red Cell Distribution Width 16.1 H 10.0-14.5 % Platelet Count 242 130-400 10^3/uL Mean Platelet Volume 10.5 H 7.4-10.4 FL Neutrophils (%) (Auto) 49 42-75 % Lymphocytes (%) (Auto) 36 12-44 % Monocytes (%) (Auto) 10 0-12 % Eosinophils (%) (Auto) 5 0-10 % Basophils (%) (Auto) 0 0-10 % Neutrophils # (Auto) 4.2 1.8-7.8 X 10^3 Lymphocytes # (Auto) 3.1 1.0-4.0 X 10^3 Monocytes # (Auto) 0.8 0.0-1.0 X 10^3 Eosinophils # (Auto) 0.4 H 0.0-0.3 10^3/uL Basophils # (Auto) 0.0 0.0-0.1 10^3/uL Prothrombin Time 13.7 12.2-14.7 SEC INR Comment 1.0 0.8-1.4 Activated Partial Thromboplast Time 31 24-35 SEC Sodium Level 144 135-145 MMOL/L Potassium Level 3.3 L 3.6-5.0 MMOL/L Chloride Level 103 98-107 MMOL/L Carbon Dioxide Level 26 21-32 MMOL/L Anion Gap 15 H 5-14 MMOL/L Blood Urea Nitrogen 17 7-18 MG/DL Creatinine 0.87 0.60-1.30 MG/DL Estimat Glomerular Filtration Rate > 60 BUN/Creatinine Ratio 20 Glucose Level 111 H 70-105 MG/DL Calcium Level 10.2 H 8.5-10.1 MG/DL Corrected Calcium 9.9 8.5-10.1 MG/DL Magnesium Level 2.1 1.8-2.4 MG/DL Total Bilirubin 0.6 0.1-1.0 MG/DL Aspartate Amino Transf (AST/SGOT) 19 5-34 U/L Alanine Aminotransferase (ALT/SGPT) < 6 0-55 U/L Alkaline Phosphatase 114 40-136 U/L Myoglobin 66.0 10.0-92.0 NG/ML Troponin I < 0.028 <0.028 NG/ML B-Type Natriuretic Peptide 358.6 H <100.0 PG/ML Total Protein 8.5 H 6.4-8.2 GM/DL Albumin 4.4 3.2-4.5 GM/DL My Orders Orders - BO KEENAN Metoprolol Tartrate Injection (Lopressor (01/19/19 05:05) Cbc With Automated Diff (01/19/19 05:12) Magnesium (01/19/19 05:12) Chest 1 View, Ap/Pa Only (01/19/19 05:12) Ekg Tracing (01/19/19 05:12) Cardiac Profile 1 (01/19/19 05:12) Comprehensive Metabolic Panel (01/19/19 05:12) Myoglobin Serum (01/19/19 05:12) Protime With Inr (01/19/19 05:12) Partial Thromboplastin Time (01/19/19 05:12) O2 (01/19/19 05:12) Monitor-Rhythm Ecg Trace Only (01/19/19 05:12) Lipid Panel (01/20/19 06:00) Ed Iv/Invasive Line Start (01/19/19 05:12) BNP (01/19/19 05:12) Aspirin Chewable Tablet (Baby Aspirin Ch (01/19/19 05:15) Metoprolol Tartrate Injection (Lopressor (01/19/19 05:15) Ns (Ivpb) (Sodium C... W/Diltiazem Iv Fo (01/19/19 05:30) Diltiazem Injection (Cardizem Injection) (01/19/19 05:30) Ed Iv/Invasive Line Start (01/19/19 05:25) Ns Iv 500 Ml (Sodium Chloride 0.9%) (01/19/19 05:25) Medications Given in ED Current Medications Medications Dose Ordered Sig/Ysabel Route Start Time Stop Time Status Last Admin Dose Admin Aspirin 324 mg ONCE ONCE PO 01/19/19 05:15 01/19/19 05:16 DC 01/19/19 05:25 324 MG Diltiazem HCl 10 mg ONCE ONCE IVP 01/19/19 05:30 01/19/19 05:31 DC 01/19/19 05:35 10 MG Metoprolol Tartrate 5 mg ONCE ONCE IV 01/19/19 05:15 01/19/19 05:16 DC 01/19/19 05:12 5 MG Sodium Chloride 500 ml @ 0 mls/hr Q0M ONCE IV 01/19/19 05:25 01/19/19 05:26 DC 01/19/19 05:45 999 MLS/HR Vital Signs/I&O 01/19/19 05:36 Pulse 147 B/P (MAP) 107/75 Progress Progress Note : Time: 05:18 Progress Note Patient is in atrial fibrillation on EKG and the monitor. She is on a rapid ventricular rate we'll give her 5 mg metoprolol. Possible she could also be expressing a heart attack so we'll avoid calcium channel blockers. We'll give her 324 mg of aspirin and a half liter of saline. After we slow the rate down with a beta adriana we will reassess and EKG.. Echocardiogram 2014 Dr. May: EF 60%. Mild diastolic dysfunction. Initial ECG Impression Date: Jan 19, 2019 Initial ECG Impression Time: 04:53 Initial ECG Rate: 152 Initial ECG Rhythm: A Fib/Flutter Initial ECG Intervals: QT (430) Initial ECG Impression: Atrial Fibrillation w/RVR Initial ECG Comparisson: Changed, Unchanged Comment Atrial fibrillation with rapid ventricular response. Diagnostic Imaging Diagonstic Imaging: Xray Plain Films/CT/US/NM/MRI: chest (1v) Comments Cardiomegaly but no acute cardiopulmonary processes noted. Reviewed: Reviewed by Me Departure Communication (Admissions) Time/Spoke to Admitting Phy: 06:15 Discussed case lab imaging and EKG with Dr. Tiffany stafford she agrees to take The patient on to the ICU. Time/Spoke to Consulting Phy: 06:10 Discussed the case lab, EKG and use of Cardizem and metoprolol Dr. Kaplan and he agrees to consult on the patient. Impression Primary Impression: Chest pain Qualified Codes: R07.9 - Chest pain, unspecified Additional Impression: Atrial fibrillation with rapid ventricular response Disposition: ADMITTED INPATIENT Condition: Critical Admissions Decision to Admit Reason: Admit from ER (General) Decision to Admit/Date: Jan 19, 2019 Time/Decision to Admit Time: 06:00 Departure-Patient Inst. Referrals: NO,LOCAL PHYSICIAN (PCP/Family) Primary Care Physician BO KEENAN Jan 19, 2019 05:22
[2019-01-19 05:25] LABS: BASOPHILS % (AUTO) 0 % (0-10); EOSINOPHILS # (AUTO) 0.4 10^3/uL (0.0-0.3); EOSINOPHILS % (AUTO) 5 % (0-10); HEMATOCRIT 48 % (35-52); HEMOGLOBIN 14.7 G/DL (11.5-16.0); LYMPHOCYTES # (AUTO) 3.1 X 10^3 (1.0-4.0); LYMPHOCYTES % (AUTO) 36 % (12-44); MEAN CORPUSCULAR HEMOGLOBIN 28 PG (25-34); MEAN CORPUSCULAR HGB CONC 31 G/DL (32-36); MEAN CORPUSCULAR VOLUME 90 FL (80-99); MEAN PLATELET VOLUME 10.5 FL (7.4-10.4); MONOCYTES # (AUTO) 0.8 X 10^3 (0.0-1.0); MONOCYTES % (AUTO) 10 % (0-12); NEUTROPHILS # (AUTO) 4.2 X 10^3 (1.8-7.8); NEUTROPHILS % (AUTO) 49 % (42-75); PLATELET COUNT 242 10^3/uL (130-400); RED CELL DISTRIBUTION WIDTH 16.1 % (10.0-14.5); WHITE BLOOD COUNT 8.6 10^3/uL (4.3-11.0)
[2019-01-19] MEDS ORDERED: NS IV 500 ML 500 ML IV ONE (05:25)
[2019-01-19] MEDS ORDERED: DILTIAZEM 25 MG/5 ML INJ (CARDIZEM) VIAL IVP ONE (05:30)
[2019-01-19] MEDS ORDERED: DILTIAZEM IV FOR DRIP 125 MG in NS (IVPB) 100 ML IV SCH (05:30)
[2019-01-19 05:42] LABS: PROTHROMBIN TIME PATIENT 13.7 SEC (12.2-14.7)
[2019-01-19 05:50] LABS: ALANINE AMINOTRANSFERASE < 6 U/L (0-55); ALBUMIN 4.4 GM/DL (3.2-4.5); ALKALINE PHOSPHATASE 114 U/L (40-136); BILIRUBIN,TOTAL 0.6 MG/DL (0.1-1.0); BUN/CREATININE RATIO 20; CALCIUM 10.2 MG/DL (8.5-10.1); CARBON DIOXIDE 26 MMOL/L (21-32); CHLORIDE 103 MMOL/L (98-107); CREATININE SERUM 0.87 MG/DL (0.60-1.30); GFR ESTIMATED > 60; GLUCOSE 111 MG/DL (70-105); MAGNESIUM 2.1 MG/DL (1.8-2.4); POTASSIUM 3.3 MMOL/L (3.6-5.0); SODIUM 144 MMOL/L (135-145); TOTAL PROTEIN 8.5 GM/DL (6.4-8.2)
--- NOTE | 2019-01-19 06:47 | Diagnostic Imaging Report ---
INDICATION: Chest pain COMPARISON: 06/21/2016 FINDINGS: Single view of the chest demonstrates stable cardiac enlargement. The lungs are clear. There is no pneumothorax. Osseous structures stable. There is a left shoulder arthroplasty. IMPRESSION: Stable cardiac enlargement without pulmonary edema or infiltrate. Dictated by: Dictated on workstation # [id number]
--- NOTE | 2019-01-19 07:10 | NUR ---
0710- PT ASSISTED TO BEDSIDE COMMODE AT THIS TIME.
--- OUTSIDE RECORDS SUMMARY | 2019-01-19 07:31 | XMS REPORT | Continuity of Care Document ---
Author Organization Unknown Address Unknown Phone Unavailable Allergies Active Description Code Type Severity Reaction Onset Reported/Identified Relationship to Patient Clinical Status Yes Sulfa (Sulfonamide Antibiotics) [id number] Drug Allergy Unknown N/A 12/13/2018 Medications There [...] FOR MALIGNANT NE 05/24/2016 SNOOK, CARLA R HEALTH AND SAFETY INSPECTOR Ot R25.1 TREMOR, UNSPECIFIED 06/14/2016 SNOOK, CARLA R HEALTH AND SAFETY INSPECTOR Ot R25.1 TREMOR, UNSPECIFIED 06/20/2016 SNOOK, CARLA R HEALTH AND SAFETY INSPECTOR Ot R25.1 TREMOR, UNSPECIFIED 06/21/2016 TAPIA DO, FLORENCAI Ot E78.5 HYPERLIPIDEMIA, UNSPECIFIED 06/21/2016 TAPIA DO, [...] GILBERTO ESPOSITO DO Ot Y92.002 BATHRM OF [facility] NON-INSTITUT RESDNCE SNGL 12/14/2018 GILBERTO ESPOSITO DO Ot Z79.82 [facility] (CURRENT) USE OF ASPIRIN 12/14/2018 VAIBHAV GILBERTO [...] Ot Y92.002 [facility] NON-[facility] RESDNCE SNGL 12/16/2018 GILBERTO ESPOSITO DO, Ot Z79.82 [employer] (CURRENT) USE OF ASPIRIN 12/16/2018 GILBERTO ESPOSITO [...] culture - 06/20/16 11:45 Bacterial urine culture [id number] NRG COLONY COUNT <10,000 NRG FTX;REPORTABLE SENSITIVITY [...] smear finding identification by light microscopy YES [facility] Comprehensive metabolic panel - 06/21/16 03:28 Serum [...] Status Pt. Type Provider Facility Loc./Unit Complaint [id number] 12/13/2018 22:30:00 12/14/2018 01:59:00 DIS Emergency VAIBHAV GILBERTO BLAKE Via [facility] ER RT ARM INJURY [id number] 11/26/2018 08:03:00 11/26/2018 23:59:59 CLS Outpatient SHREE DELVALLE MD Via [facility] RAD ABN MAMMO [id number] 10/17/2018 11:53:00 10/17/2018 23:59:59 CLS Outpatient OSMEL LINDA DC Via [facility] RAD ACUTE LOW BACK PAIN [id number] 06/19/2018 14:33:00 06/19/2018 23:59:59 CLS Outpatient SHREE DELVALLE MD Via [facility] RAD SCREENING [id number] 04/03/2017 10:15:00 04/03/2017 23:59:59 CLS Preadmit OTHER, UNLISTED Via [facility] RAD SCREENING [id number] 06/20/2016 14:25:00 06/21/2016 14:37:00 DIS Inpatient FLORENCIA TAPIA DO Via [facility] ICU CVA UTI [id number] 05/22/2016 13:39:00 05/22/2016 23:59:59 CLS Outpatient SNCARLA OH R HEALTH AND SAFETY INSPECTOR Via [facility] RAD TREMORS [id number] 07/28/2015 10:50:00 07/28/2015 23:59:59 CLS Outpatient ROULA MATAMOROS MD Via [facility] RAD SCREENING [id number] 06/08/2014 09:49:00 06/08/2014 23:59:59 CLS Outpatient ADAM JON Via [facility] RAD SCREENING [id number] 10/02/2013 12:41:00 10/02/2013 23:59:59 CLS Outpatient [id number] 07/17/2013 11:18:00 07/17/2013 23:59:59 CLS Outpatient NAPOLEON GALLEGOS MD Via [facility] RAD SCREENING,KYPHOSEOLOSIS [id number] 05/25/2013 14:26:00 05/25/2013 23:59:59 CLS Outpatient NAPOLEON GALLEGOS MD Via [facility] RAD SCREENING [id number] 06/08/2014 09:48:00 Document Registration [id number] 07/09/2012 07:55:00 Document Registration [id number] 05/14/2012 15:02:00 Document Registration [id number] 01/10/2012 10:34:00 Document Registration [id number] 01/09/2012 14:20:00 Document Registration [id number] 09/20/2011 10:45:00 Document Registration [id number] 05/07/2011 08:48:00 Document Registration [id number] 05/05/2010 09:32:00 Document Registration [id number] 05/04/2009 13:33:00 Document Registration [id number] 01/12/2009 13:36:00 Document Registration [id number] 12/20/2008 09:09:00 Document Registration
--- NOTE | 2019-01-19 07:33 | NUR ---
DR. GRECO HERE ASSESSING PT AT THIS TIME. PT CURRENT HR IS 61 AND IRREGULAR. PT BP IS 136/85.
[2019-01-19] MEDS ORDERED: ENOXAPARIN 60 MG/0.6 ML (LOVENOX) SYR SC ONE (07:45)
--- NOTE | 2019-01-19 07:54 | Consultation-Cardiology ---
HPI-Cardiology Cardiology Consultation Date of Consultation 01/19/19 Date of Admission Time Seen by Provider: 07:51 Indication: atrial fibrillation HPI 84 years old lady with history of Dick's palsy, Parkinson disease, hypertension. Was in her usual state of health until this morning when she woke up with chest pain, generalized body ache, fatigue, came into the emergency room and noted to be in atrial fibrillation with rapid ventricular response. She was started on Cardizem drip. Heart rate is better at this time, she is feeling better. No active chest pain. No similar episodes in the past. No previous chronic history, no history of bleeding. Home Medications & Allergies Allergies: Coded Allergies: Sulfa (Sulfonamide Antibiotics) (Verified Allergy, Unknown, 12/13/18) Home Medication List Reviewed: Yes DIK-Ydnizk-Lxxfdy Hx Patient Social History Marital Status: Alcohol Use: Denies Use Recreational Drug Use: No Smoking Status: Former Smoker Type Used: Cigarettes Recent Foreign Travel: No Recent Infectious Disease Expo: No Recent Hopitalizations: No Immunizations Up To Date Tetanus Booster (TDap): Less than 5yrs Date of Pneumonia Vaccine: Feb 20, 2016 Date of Influenza Vaccine: Mar 20, 2016 Past Medical History discussed below Family Medical History Significant Family History: No Pertinent Family Hx Family Medical Hx noncontributory to her current condition Review of Systems-General Review of Systems Constitutional: No chills, No diaphoresis, No dizziness; malaise, weakness EENTM: see HPI, no symptoms reported Respiratory: see HPI; No cough; dyspnea on exertion; No hemoptysis, No orthopnea, No phlegm, No short of breath, No stridor, No wheezing, No other Cardiovascular: see HPI, chest pain; No edema, No Hx of Intervention; palpita tions; No syncope, No vascular heart diseas, No other Gastrointestinal: no symptoms reported, see HPI Genitourinary: no symptoms reported, see HPI Musculoskeletal: No back pain, No joint pain Skin: see HPI; No pruritus, No rash Psychiatric/Neurological: See HPI; Denies Headache, Denies Numbness Reviewed Test Results Reviewed Test Results Lab Laboratory Tests Test 01/19/19 05:00 Range/Units White Blood Count 8.6 4.3-11.0 10^3/uL Red Blood Count 5.31 4.35-5.85 10^6/uL Hemoglobin 14.7 11.5-16.0 G/DL Hematocrit 48 35-52 % Mean Corpuscular Volume 90 80-99 FL Mean Corpuscular Hemoglobin 28 25-34 PG Mean Corpuscular Hemoglobin Concent 31 L 32-36 G/DL Red Cell Distribution Width 16.1 H 10.0-14.5 % Platelet Count 242 130-400 10^3/uL Mean Platelet Volume 10.5 H 7.4-10.4 FL Neutrophils (%) (Auto) 49 42-75 % Lymphocytes (%) (Auto) 36 12-44 % Monocytes (%) (Auto) 10 0-12 % Eosinophils (%) (Auto) 5 0-10 % Basophils (%) (Auto) 0 0-10 % Neutrophils # (Auto) 4.2 1.8-7.8 X 10^3 Lymphocytes # (Auto) 3.1 1.0-4.0 X 10^3 Monocytes # (Auto) 0.8 0.0-1.0 X 10^3 Eosinophils # (Auto) 0.4 H 0.0-0.3 10^3/uL Basophils # (Auto) 0.0 0.0-0.1 10^3/uL Prothrombin Time 13.7 12.2-14.7 SEC INR Comment 1.0 0.8-1.4 Activated Partial Thromboplast Time 31 24-35 SEC Sodium Level 144 135-145 MMOL/L Potassium Level 3.3 L 3.6-5.0 MMOL/L Chloride Level 103 98-107 MMOL/L Carbon Dioxide Level 26 21-32 MMOL/L Anion Gap 15 H 5-14 MMOL/L Blood Urea Nitrogen 17 7-18 MG/DL Creatinine 0.87 0.60-1.30 MG/DL Estimat Glomerular Filtration Rate > 60 BUN/Creatinine Ratio 20 Glucose Level 111 H 70-105 MG/DL Calcium Level 10.2 H 8.5-10.1 MG/DL Corrected Calcium 9.9 8.5-10.1 MG/DL Magnesium Level 2.1 1.8-2.4 MG/DL Total Bilirubin 0.6 0.1-1.0 MG/DL Aspartate Amino Transf (AST/SGOT) 19 5-34 U/L Alanine Aminotransferase (ALT/SGPT) < 6 0-55 U/L Alkaline Phosphatase 114 40-136 U/L Myoglobin 66.0 10.0-92.0 NG/ML Troponin I < 0.028 <0.028 NG/ML B-Type Natriuretic Peptide 358.6 H <100.0 PG/ML Total Protein 8.5 H 6.4-8.2 GM/DL Albumin 4.4 3.2-4.5 GM/DL Physical Exam Physical Exam Vital Signs Vital Signs - First Documented 01/19/19 04:52 Temp 97.3 Pulse 154 Resp 20 B/P (MAP) 128/106 (113) Pulse Ox 98 O2 Delivery Nasal Cannula O2 Flow Rate 2.00 FiO2 98 Capillary Refill : Less Than 3 Seconds Height, Weight, BMI Height: 5'7.00" Weight: 122lbs. 2.0oz. 55.597858sf; 24.4 BMI Method:Stated General Appearance: WD/WN, Anxious HEENT: PERRL/EOMI, Normal ENT Inspection, Pharynx Normal, Moist Mucous Membranes Neck: Full Range of Motion, Normal Inspection Respiratory: Chest Non Tender, Lungs Clear, Normal Breath Sounds, No Accessory Muscle Use, No Respiratory Distress Cardiovascular: No Edema, No JVD, Normal Peripheral Pulses, Systolic Murmur, Irregularly Irregular, Tachycardia Gastrointestinal: Normal Bowel Sounds, No Organomegaly, Non Tender, Soft Extremity: Normal Capillary Refill, Normal Inspection, No Pedal Edema Neurologic/Psychiatric: Alert, Oriented x3, No Motor/Sensory Deficits Skin: Normal Color, Warm/Dry A/P-Cardiology Admission Diagnosis Acute atrial fibrillation Palpitation Chest pain Hypertension Assessment/Plan Atrial fibrillation with rapid ventricular response, probably new onset. Started on Cardizem drip, heart rate is slightly better, continue to monitor heart rate, evaluate TSH, monitor electrolytes. Evaluate 2-D echocardiogram. Increased risk of stroke, patient will be be starting on oral anticoagulation, she was given Lovenox in the emergency room. I will evaluate 2-D echocardiogram Chest pain, probably secondary to tachycardia, reporting improvement, continue to monitor cardiac enzymes. Evaluate echocardiogram. History of Dick's palsy, no previous history of stroke. Hypertension, monitor blood pressure while on Cardizem drip Hyperlipidemia maintained on lovastatin, monitor lipids History of Parkinson disease. Clinical Quality Measures AMI/AHF: ASA po Prior to arrival: ESTRELLA Zimmer MD Jan 19, 2019 07:54
[2019-01-19] MEDS ORDERED: ACETAMINOPHEN 500 MG TAB (TYLENOL) PO PRN (08:30)
[2019-01-19] MEDS ORDERED: ONDANSETRON 4 MG/2 ML (SDV) Z0FRAN IV PRN (08:30)
[2019-01-19] MEDS ORDERED: DILTIAZEM 125 MG/NS 100 ML IV SCH ×2 (08:30)
[2019-01-19] MEDS ORDERED: morphine INJ 4 MG/ML 1 ML (VIAL/SYRINGE) IV PRN (08:30)
[2019-01-19] MEDS ORDERED: ENOXAPARIN 60 MG/0.6 ML (LOVENOX) SYR SC SCH (09:00)
[2019-01-19] MEDS ORDERED: CARB1TAB19 PO (09:33)
[2019-01-19] MEDS ORDERED: ROPI1TAB2 PO (09:33)
[2019-01-19] MEDS ORDERED: LOVA20TA2 PO (09:41)
[2019-01-19] MEDS ORDERED: ASPI-586 PO (09:41)
[2019-01-19] MEDS ORDERED: HYDR-3812 PO (09:41)
[2019-01-19] MEDS ORDERED: LOVA10TA PO (09:43)
--- NOTE | 2019-01-19 09:44 | NUR ---
SPOKE WITH PT WELL GOING OVER THE EXT MED HISTORY TO COMPLETE MED REC. 11-06-2018 DICLOFENAC - TAKES BID, WAS LAST PICKED UP 11-06-2018 #60/30DS, WHEN I INQUIRED WITH THE PT IF THEY TAKE THIS ALL THE TIME OR JUST PRN (SINCE PT WOULD BE OUT OF MEDICATION), SHE STATED THAT HER HAD "A COUPLE BOTTLES LEFTOVER" AND SHE WAS USING THAT. HYDROCODONE AND TRAMADOL ARE BOTH PRN, SHE SAYS SOME DAYS SHE DOESN'T HAVE TO USE EITHER. OTC MEDICATIONS: ASPIRIN 81MG- 1 TAB HS VITAMIN D2 2000M DAILY DOCUSATE 100: 2 DAILY PRN MULTIVITAMIN: 1 DAILY
[2019-01-19] MEDS ORDERED: meTOproloL SUCCINATE 50 MG (TOPROL XL) TAB PO NR (10:15)
--- NOTE | 2019-01-19 10:24 | NUR ---
Initial visit with pt's daughter, Arlette with the pt. It is the pt's birthday today, and her grandson was last weekend, for which she expressed gratitude. The pt has a Denominational background and is not currently connected with a roman catholic. I offered empathic listening for her recent health challenges, and facilitated a sacred space for her thanksgiving for life and her felt blessings in seeing her children and grandchildren grow.
--- NOTE | 2019-01-19 13:28 | History & Physical-Hospitalist ---
History of Present Illness HPI/Chief Complaint Tessa Mccartney is an 84-year-old female who presents with chest pain. She developed chest pain this morning which radiated to her left arm. She denies any neck or jaw pain. She denies any pleuritic pain. She denies any nausea or vomiting. She denies any diaphoresis. She denies any shortness of breath. She denies any fevers, cough, abdominal pain, dysuria. Source: patient Exam Limitations: no limitations Date Seen 01/19/19 Time Seen by a Provider: 11:00 Attending Physician Neida Childs MD PCP No,Local Physician Referring Physician Date of Admission Jan 19, 2019 at 07:03 Home Medications & Allergies Home Medications Reviewed patient Home Medication Reconciliation performed by pharmacy medication reconciliations photonics technician and/or nursing. Patients Allergies have been reviewed. Allergies Allergies Coded Allergies Sulfa (Sulfonamide Antibiotics) (Verified Allergy, Unknown, 12/13/18) Past Brlknmx-Tnnubi-Xiaroe Hx Past Med/Social Hx: Reviewed Nursing Past Med/Soc Hx Patient Social History Marrital Status: Alcohol Use: Denies Use Recreational Drug Use: No Smoking Status: Former Smoker Former Smoker, Quit: Jun 17, 1999 Type Used: Cigarettes Recent Foreign Travel: No Contact w/other who traveled: No Recent Hopitalizations: No Recent Infectious Disease Expo: No Immunizations Up To Date Tetanus Booster (TDap): Less than 5yrs Pediatric: Yes Date of Pneumonia Vaccine: Feb 20, 2016 Date of Influenza Vaccine: Mar 20, 2016 Seasonal Allergies Seasonal Allergies: Yes Past Medical History Surgeries: Abdominal, Hysterectomy, Orthopedic, Tonsillectomy Cardiac: Hypertension Neurological: Stroke : No Reproductive: No Sexually Transmitted Disease: No Hysterectomy, Menopausal Musculoskeletal: Degenerate Disk Disease, Arthritis, Chronic Back Pain Psychosocial: Anxiety History of Blood Disorders: No Family History No Pertinent Family Hx Review of Systems Constitutional: no symptoms reported EENTM: no symptoms reported Respiratory: no symptoms reported Cardiovascular: chest pain; No edema Gastrointestinal: no symptoms reported; No abdominal pain, No nausea, No vomiting Genitourinary: no symptoms reported Musculoskeletal: no symptoms reported Skin: no symptoms reported Psychiatric/Neurological: No Symptoms Reported Physical Exam Physical Exam Vital Signs Vital Signs - First Documented 01/19/19 04:52 Temp 97.3 Pulse 154 Resp 20 B/P (MAP) 128/106 (113) Pulse Ox 98 O2 Delivery Nasal Cannula O2 Flow Rate 2.00 FiO2 98 Capillary Refill : Less Than 3 SecondsLess Than 3 Seconds Height, Weight, BMI Height: 5'7.00" Weight: 122lbs. 2.0oz. 55.704575uk; 19.1 BMI Method:Stated General Appearance: No Apparent Distress, Thin HEENT: PERRL/EOMI, Pharynx Normal, Moist Mucous Membranes Neck: Normal Inspection, Non Tender, Supple Respiratory: Chest Non Tender, Lungs Clear, Normal Breath Sounds, No Respiratory Distress; No Crackles, No Respiratory Distress, No Rhonci, No Wheezing Cardiovascular: Regular Rate, Rhythm, No Edema, No Murmur Gastrointestinal: Normal Bowel Sounds, Non Tender, Soft; No Abnormal Bowel Sounds Extremity: Normal Inspection, Non Tender, No Pedal Edema Neurologic/Psychiatric: Alert, No Motor/Sensory Deficits, Normal Mood/Affect Skin: Normal Color, Warm/Dry Lymphatic: No Adenopathy Results Results/Procedures Labs Laboratory Tests 01/19/19 05:00 Patient resulted labs reviewed. Imaging: Reviewed Imaging Report Assessment/Plan Admission Diagnosis Atrial fibrillation with rapid ventricular response Admission Status: Observation Assessment and Plan Atrial fibrillation with rapid ventricular response Chest pain Started on diltiazem gtt, converted to normal sinus rhythm Cardiology consulted Toprol increased to 50 mg daily Started on Eliquis 5 mg twice a day Initial troponin negative, continue to trend Obtain TSH level Hypokalemia K 3.3 on admission Continue to monitor and replace as needed Diagnosis/Problems Diagnosis/Problems (1) Atrial fibrillation with rapid ventricular response Status: Acute (2) Chest pain Status: Acute Qualifiers: Chest pain type: unspecified Qualified Codes: R07.9 - Chest pain, unspecified Clinical Quality Measures AMI/AHF: ASA po Prior to arrival: No DVT/VTE Risk/Contraindication: Risk Factor Score Per Nursin RFS Level Per Nursing on Admit: 2=Moderate NEIDA CHILDS MD Jan 19, 2019 13:28
--- NOTE | 2019-01-19 13:50 | NUR ---
Pt transferred from ICU to room 424 via w/c, pt is alert and oriented x 4, denies any chest pain or palpitations at this time.
--- NOTE | 2019-01-19 14:50 | Physical Therapy Evaluation ---
PT Evaluation-General Medical Diagnosis Admission Date Jan 19, 2019 at 07:03 Medical Diagnosis: A-fib with RVR/CP Onset Date: Jan 19, 2019 Therapy Diagnosis Therapy Diagnosis: debility Height/Weight Height (Feet): 5 Height (Inches): 7.00 Weight (Pounds): 122 Weight (Ounces): 2.0 Precautions Precautions/Isolations: Standard Precautions Weight Bear Status Right Lower Extremity: Right Weight Bearing/Tolerated Left Lower Extremity: Left Weight Bearing/Tolerated Referral Physician: Telly Reason for Referral: Evaluation/Treatment Medical History Pertinent Medical History: Arthritis, HTN Additional Medical History right proximal humerus fracture (5 wks ago) in an immobilizer Current History ER with anterior CP Reviewed History: Yes Social History Home: Single Level Current Living Status: Spouse Prior/Core FIM Prior Level of Function Therapy Code Descriptions/Definitions Functional [place] Measure: 0=Not Assessed/NA 4=Minimal Assistance 1=Total Assistance 5=Supervision or Setup 2=Maximal Assistance 6=Modified [place] 3=Moderate Assistance 7=Complete [place] Therapy Quality Codes: 6 Independent with activity with or without an assistive device 5 Patient requires set up or clean up by helper. Patient completes activity by themselves 4 Supervision or touching assist (CGA). [place] provide cues , steadying assist 3 The helper provides less than half the effort to complete the activity 2 The helper provides more than half the effort to complete the activity 1 Dependent. The helper does all the effort to complete an activity 7 Patient refused to complete or attempt activity 9 The patient did not perform the activity before the current illness or injury 88 Not attempted due to Medical conditions or safety concerns Functional Abilities and Goals: Independent: Patient completed the activities by him/herself, with or without an assistive device, with no assistance from a helper. Needed Some Help: Patient needed partial assistance from another person to complete activities. Dependent: A helper completed the activities for the patient. Unknown: Not Applicable: Bed Mobility: 7 Transfers (B,C,W/C) (FIM): 7 Gait: 7 Stairs: 7 Indoor Mobility (Ambulation): Independent Stairs: Independent Prior Devices Use: None PT Evaluation-Current Subjective Patient has no c/o and agrees to PT. Pain Numeric Pain Scale: 0-No Pain Location: No Pain Reported Objective Patient Orientation: Normal For Age Problem Solving: Good ROM/Strength ROM Lower Extremities bilateral LE WFL Strength Lower Extremities 4/5 grossly bilaterally Integumentary/Posture Bowel Incontinence: No Bladder Incontinence: No Posture WFL Neuromuscular (Tone, Coordination, Reflexes) grossly intact x 3 Sensory Vision: Functional Hearing: Functional Sensation Right Lower Extremit: Intact Sensation Left Lower Extremity: Intact Transfers Therapy Code Descriptions/Definitions Functional [place] Measure: 0=Not Assessed/NA 4=Minimal Assistance 1=Total Assistance 5=Supervision or Setup 2=Maximal Assistance 6=Modified [place] 3=Moderate Assistance 7=Complete [place] Transfers (B, C, W/C) (FIM): 7 Scootin Supine to/from Sit: 7 Sit to/from Stand: 7 Gait Mode of Locomotion: Walk Anticipated Mode of Locomotion: Walk Gait (FIM): 7 Distance (FIM): 3=150 ft Distance: >400' Gait Level of Assist: 7 Gait Assistive Device: None Comments/Gait Description safe and functional with no deviation Balance Sitting Static: Normal Sitting Dynamic: Normal Standing Static: Normal Standing Dynamic: Normal Assessment/Needs 84 y.o. active female, is currently at [facility] with all gross motor skills and does not require skilled therapy intervention. Thank you for this referral. Rehab Potential: Good PT Plan Treatment/Plan Treatment Plan: Discontinue PT, goals met Treatment Plan: Other Treatment Duration: Jan 19, 2019 Frequency: 1 time per week Estimated Hrs Per Day: .25 hour per day Patient and/or Family Agrees t: Yes Discharge Recommendations Therapy D/C Recommendations: Home w/ Family Support Time/GCodes Time In: 1345 Time Out: 1355 Total Billed Treatment Time: 10 Total Billed Treatment 1 visit [id number] min JUAN MANUEL LORENZO PT Jan 19, 2019 14:50
--- NOTE | 2019-01-19 15:59 | Occupational Therapy Eval ---
OT Evaluation-General/PLF Medical Diagnosis Admission Date Jan 19, 2019 at 07:03 Medical Diagnosis: A-fib with RVR/CP Onset Date: Jan 19, 2019 Therapy Diagnosis Therapy Diagnosis: Weakness Height/Weight Height (Feet): 5 Height (Inches): 7.00 Weight (Pounds): 122 Weight (Ounces): 2.0 Precautions Precautions/Isolations: Standard Precautions Weight Bear Status Weight Bearing Restriction: Non Weight Bearing Location Restriction: R UE Pt. had humeral fx 12-08-18. Pt. in humeral brace. Referral Physician: Telly Referral Reason: Activity Tolerance, Self Care, Evaluation/Treatment, Strengthening/ROM Medical History Pertinent Medical History: Arthritis, HTN, Parkinson's Additional Medical History Hysterectomy, DDD, [place] palsy, bilateral knee replacements, ankle fx, pelvic fx. Left shoulder replacement 1 year ago. Current History Pt. fx right humerus approximately 6 weeks ago. States that she has an appointment on this Saturday with orthopedic surgeon to see if her brace can come off, and if she can start outpt. therapy. Reviewed History: Yes Social History Home: Single Level Current Living Status: Spouse Entry Into Home: Level Entry ADL-Prior Level of Function Therapy Code Descriptions/Definitions Functional [place] Measure: 0=Not Assessed/NA 4=Minimal Assistance 1=Total Assistance 5=Supervision or Setup 2=Maximal Assistance 6=Modified [place] 3=Moderate Assistance 7=Complete [place] Therapy Quality Codes: 6 Independent with activity with or without an assistive device 5 Patient requires set up or clean up by helper. Patient completes activity by themselves 4 Supervision or touching assist (CGA). [place] provide cues , steadying assist 3 The helper provides less than half the effort to complete the activity 2 The helper provides more than half the effort to complete the activity 1 Dependent. The helper does all the effort to complete an activity 7 Patient refused to complete or attempt activity 9 The patient did not perform the activity before the current illness or injury 88 Not attempted due to Medical conditions or safety concerns Functional Abilities and Goals: Independent: Patient completed the activities by him/herself, with or without an assistive device, with no assistance from a helper. Needed Some Help: Patient needed partial assistance from another person to com plete activities. Dependent: A helper completed the activities for the patient. Unknown: Not Applicable: ADL PLOF Comments Pt. states that for the last 6 weeks, her spouse has assisted her as needed with dressing. Pt. states that she can shower self, and can toilet, but does need assist with dressing. This is due to recent humeral fx. Otherwise, she has alw ays been independent. Pt. uses a hurry cane "sometimes outside" when needed. Otherwise, does not walk with anything. Self Care: Needed Some Help Functional Cognition: Independent DME/Equipment: Bath Chair, Shower OT Current Status Subjective No pain reported. Pt. states that she feels, "good." Appearance Pt. up in chair. Daughter in room. Mental Status/Objective Patient Orientation: Person, Place, Time, Situation Current Hand Dominance: Right Upper Extremity ROM Left, WFL Right- not tested. Upper Extremity Strength Right hand- 3/5 left hand- 4/5 Pt. states that she has putty and squeeze balls that she uses at home in right hand since her fx. ADL-Treatment Therapy Code Descriptions/Definitions Functional [place] Measure: 0=Not Assessed/NA 4=Minimal Assistance 1=Total Assistance 5=Supervision or Setup 2=Maximal Assistance 6=Modified [place] 3=Moderate Assistance 7=Complete [place] Therapy Quality Codes: 6 Independent with activity with or without an assistive device 5 Patient requires set up or clean up by helper. Patient completes activity by themselves 4 Supervision or touching assist (CGA). [place] provide cues , steadying assist 3 The helper provides less than half the effort to complete the activity 2 The helper provides more than half the effort to complete the activity 1 Dependent. The helper does all the effort to complete an activity 7 Patient refused to complete or attempt activity 9 The patient did not perform the activity before the current illness or injury 88 Not attempted due to Medical conditions or safety concerns Transfers (B, C, W/C) (FIM): 4 (CGA) Other Treatments Pt. verbalizes that at this time, she really has no needs. States that she has a system in place with her spouse for dressing, which will change when she is able to remove her arm brace. Pt. states that she will be starting outpt. ther apy soon for her right arm, and will likely address cardiac therapy as well per her physician. Pt. verbalizes that she really has no concerns. Pt's daughter verbalizes that she is concerned about pt. getting dizzy when she stands or ambulates, as she is now on a blood thinner. OT brought quad cane and silvia cane into room to see if this would assist pt. in stance or ambulation, to her comfort level. Pt. practiced ambulating with each device, but states that both are heavy and make her balance even more off. Pt. states that her hurry cane at home is better for this. Pt. is educated on proper standing technique, and standing for a few seconds in place when getting up, instead of just walking. Pt. verbalizes understanding of this. All needs are met in room and pt. has no further concerns. No further OT warranted at this time. Education OT Patient Education: Correct positioning, Progress toward Goal/Update tx plan, Purpose of tx/functional activities, Reviewed precautions, Rehab process, Transfer techniques Teaching Recipient: Patient, Family Teaching Methods: Demonstration, Discussion Response to Teaching: Verbalize Understanding, Return Demonstration OT Short Term Goals Short Term Goals 1=Demonstrate adherence to instructed precautions during ADL tasks. 2=Patient will verbalize/demonstrate understanding of assistive devices/modifications for ADL. 3=Patient will improve strength/tolerance for activity to enable patient to perform ADL's. OT Sample Selector Goals Sample Selector Goals Time Frame: Jan 19, 2019 Additional Goals: 2-Verbalize Understanding 1=Demonstrate adherence to instructed precautions during ADL tasks. 2=Patient will verbalize/demonstrate understanding of assistive devices/modifications for ADL. 3=Patient will improve strength/tolerance for activity to enable patient to perform ADL's. No further OT warranted at this time. Pt. has a system with spouse at home, is going to be starting outpt. therapy when released from Dr., and verbalizes understanding of energy conservation techniques as well as safety awareness in ambulation. OT Education/Plan Problem List/Assessment Assessment: No Skilled OT Needs ID'd Discharge Recommendations Plan/Recommendations: Discharge/Goals Met Therapy D/C Recommendations: Home w/ Family Support Treatment Plan/Plan of Care Treatment,Training & Education: Yes Treatment Duration: Jan 19, 2019 Frequency: 1 time per week Estimated Hrs Per Day: .5 hour per day Agreement: Yes Rehab Potential: Good Time/GCodes Start Time: 14:50 Stop Time: 15:20 Total Time Billed (hr/min): 30 Billed Treatment Time 1, EVL Discharge OT No charge KARI VEGA OT Jan 19, 2019 15:59
--- NOTE | 2019-01-19 18:10 | NUR ---
Critical troponin of 0.298, Dr. Varner notified, no orders received at this time.
--- NOTE | 2019-01-19 18:35 | NUR ---
Dr. Kaplan notified of troponin, no new orders given.
[2019-01-19] MEDS ORDERED: APIXABAN 5 MG (ELIQUIS) TABLET PO SCH (21:00)
[2019-01-20] VITALS (8 sets, daily range): BP systolic 127–174; BP diastolic 72–92
[2019-01-20 05:00] LABS: HEMOGLOBIN 13.7 G/DL (11.5-16.0); MEAN PLATELET VOLUME 10.4 FL (7.4-10.4); RED CELL DISTRIBUTION WIDTH 16.1 % (10.0-14.5); WHITE BLOOD COUNT 6.3 10^3/uL (4.3-11.0)
[2019-01-20 05:22] LABS: ALANINE AMINOTRANSFERASE 18 U/L (0-55); ALBUMIN 3.6 GM/DL (3.2-4.5); ALKALINE PHOSPHATASE 102 U/L (40-136); BILIRUBIN,TOTAL 0.5 MG/DL (0.1-1.0); BUN/CREATININE RATIO 22; CALCIUM 9.2 MG/DL (8.5-10.1); CARBON DIOXIDE 28 MMOL/L (21-32); CHLORIDE 108 MMOL/L (98-107); CHOLESTEROL 127 MG/DL (< 200); CREATININE SERUM 0.72 MG/DL (0.60-1.30); GFR ESTIMATED > 60; GLUCOSE 94 MG/DL (70-105); HDL CHOLESTEROL 54 MG/DL (40-60); POTASSIUM 3.4 MMOL/L (3.6-5.0); SODIUM 145 MMOL/L (135-145); TOTAL PROTEIN 6.2 GM/DL (6.4-8.2); TRIGLYCERIDES 60 MG/DL (<150); VLDL CHOLESTEROL 12 MG/DL (5-40)
[2019-01-20] MEDS ORDERED: KCL 20 MEQ TAB (K-DUR) PO NR (08:00)
[2019-01-20] MEDS: meTOproloL SUCCINATE 50 MG (TOPROL XL) TAB PO SCH (08:44)
[2019-01-20] MEDS ORDERED: APIXABAN 2.5 MG (ELIQUIS) TABLET PO SCH (09:00)
[2019-01-20] MEDS ORDERED: SINEMET 25/100 (CARBIDOPA/LEVODOPA) TAB PO SCH (09:29)
--- NOTE | 2019-01-20 10:36 | Cardiology Progress Note ---
Subjective Date Seen by Provider: Jan 20, 2019 Time Seen by Provider: 10:34 Subjective/Events-last exam Patient's feeling well, no further episode of chest pain. No palpitation Review of Systems General: No Chills, No Night Sweats, No Fatigue, No Malaise, No Appetite, No Other HEENT: No Head Aches, No Visual Changes, No Eye Pain, No Ear Pain, No Dysphasia, No Sinus Congestion, No Post Nasal Drip, No Sore Throat, No Other Pulmonary: No Dyspnea, No Cough, No Pleuritic Chest Pain, No Other Cardiovascular: No: Chest Pain, Palpitations, Orthopnea, Paroxysmal Noc. Dyspnea, Edema, Lt Headedness, Other Objective-Cardiology Exam Last Set of Vital Signs Vital Signs 01/19/19 01/19/19 01/20/19 04:52 07:58 08:50 Temp 98.2 Pulse 69 Resp 18 B/P (MAP) 174/80 (111) Pulse Ox 94 O2 Delivery Room Air O2 Flow Rate 2.0 FiO2 98 Capillary Refill : Less Than 3 SecondsLess Than 3 Seconds I&O Intake and Output 01/20/19 00:00 Intake Total 1230 ml Output Total 650 ml Balance 580 ml Intake Oral 660 ml IV Total 570 ml Output Urine Total 650 ml Daily Weight Change No General: Alert, Oriented X3, Cooperative HEENT: Atraumatic, PERRLA Neck: Supple, No JVD, No Thyromegaly Lungs: Clear to Auscultation, Normal Air Movement Heart: Regular Rate, Normal S1, Normal S2, No Murmurs Abdomen: Normal Bowel Sounds, Soft, No Tenderness, No Hepatosplenomegaly, No Masses Extremities: No Clubbing, No Cyanosis, No Edema, Normal Pulses, No Tenderness/Swelling Skin: No Rashes, No Breakdown, No Significant Lesion Neuro: Normal Gait, Normal Speech, Strength at 5/5 X4 Ext, Normal Tone, Sensation Intact Psych/Mental Status: Mental Status NL, Mood NL Results Lab Laboratory Tests 01/20/19 04:55 A/P-Cardiology Admission Diagnosis Acute atrial fibrillation Palpitation Chest pain Hypertension Assessment/Plan Paroxysmal atrial fibrillation, converted to sinus rhythm on Cardizem drip, maintained on Toprol orally and Eliquis. Mild elevation in troponin probably secondary to tachycardia, non-ST elevation myocardial infarction type II. Planning to proceed with cardiac catheterization possible PTCA. 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 Hypertension, controlled, add lisinopril Hyperlipidemia maintained on lovastatin, monitor lipids History of Parkinson disease. Clinical Quality Measures AMI/AHF: ASA po Prior to arrival: No DVT/VTE Risk/Contraindication: Risk Factor Score Per Nursin RFS Level Per Nursing on Admit: 2=Moderate ESTRELLA GRECO MD Jan 20, 2019 10:36
--- NOTE | 2019-01-20 11:01 | Progress Note - Hospitalist ---
Subjective HPI/CC On Admission Date Seen by Provider: Jan 20, 2019 Time Seen by Provider: 10:00 chest pain Subjective/Events-last exam She reports no recurrence of her chest pain. She denies palpitations. She repo rts occasional shortness of breath. She denies nausea and vomiting. She has no other complaints. Objective Exam Vital Signs Vital Signs Date Time Temp Pulse Resp B/P (MAP) Pulse Ox O2 Delivery O2 Flow Rate FiO2 01/20/19 08:50 98.2 69 18 174/80 (111) 94 Room Air 01/19/19 07:58 2.0 01/19/19 04:52 98 Capillary Refill : Less Than 3 SecondsLess Than 3 Seconds General Appearance: No Apparent Distress, WD/WN HEENT: PERRL/EOMI, Pharynx Normal Neck: Normal Inspection, Supple Respiratory: Lungs Clear, Normal Breath Sounds, No Respiratory Distress; No Crackles, No Wheezing Cardiovascular: Regular Rate, Rhythm, No Edema, No Murmur Gastrointestinal: Normal Bowel Sounds, Non Tender, Soft Extremity: Normal Inspection, Non Tender, No Calf Tenderness, No Pedal Edema Neurologic/Psychiatric: Alert; No Disoriented Skin: Normal Color, Warm/Dry Results/Procedures Lab Laboratory Tests 01/20/19 04:55 Patient resulted labs reviewed. Assessment/Plan Assessment and Plan Assess & Plan/Chief Complaint Paroxysmal atrial fibrillation with rapid ventricular response, resolved NSTEMI, type II Currently in NSR Continue Metoprolol for rate control Eliquis 2.5 mg twice daily for anticoagulation Troponin trended up to peak of 0.29, then trended downward EKG without concerning changes Echo with normal EF and no regional wall motion abnormalities Cardiology planning for left heart cath tomorrow Hypokalemia K 3.4 this morning Continue to monitor and replace as needed HTN Continue metoprolol Add lisinopril HLD Continue statin Parkinson's disease Continue Sinemet and ropinirole Diagnosis/Problems Diagnosis/Problems (1) Atrial fibrillation with rapid ventricular response Status: Acute (2) NSTEMI (non-ST elevated myocardial infarction) (3) Hypokalemia (4) Hypertension (5) Parkinson's disease (6) HLD (hyperlipidemia) Clinical Quality Measures AMI/AHF: ASA po Prior to arrival: No DVT/VTE Risk/Contraindication: Risk Factor Score Per Nursin RFS Level Per Nursing on Admit: 2=Moderate WILL CHILDS MD Jan 20, 2019 11:01
[2019-01-20] MEDS: lisINopril 10 MG (PRINIVIL) TABLET PO SCH (11:35)
[2019-01-20] MEDS: rOPINIRole 1 MG (REQUIP) TABLET PO SCH ×2 (16:30→20:33)
[2019-01-20] MEDS: SINEMET 25/100 (CARBIDOPA/LEVODOPA) TAB PO SCH (20:34)
[2019-01-20] MEDS ORDERED: ASPIRIN 81 MG CHEW (CHILDREN'S ASA) PO SCH (21:00)
[2019-01-20] MEDS ORDERED: SIMvastatin 10 MG (ZOCOR) TAB PO SCH (21:00)
[2019-01-21] VITALS (13 sets, daily range): BP systolic 144–201; BP diastolic 72–118
[2019-01-21] MEDS: oxyCODONE/APAP 5/325MG (PERCOCET 5) TABLET PO PRN ×2 (00:45→14:53)
[2019-01-21] MEDS: SINEMET 25/100 (CARBIDOPA/LEVODOPA) TAB PO SCH ×2 (03:44→14:53)
[2019-01-21] MEDS ORDERED: LIDOCAINE 1% INJ 20 ML 20 ML VIAL ONE (07:05)
[2019-01-21] MEDS ORDERED: NS IV 1000 ML 1,000 ML ONE (07:05)
[2019-01-21] MEDS ORDERED: HEParin (CATH LAB) 2,000 ML IV ONE (07:05)
[2019-01-21 07:27] LABS: BUN/CREATININE RATIO 22; CARBON DIOXIDE 27 MMOL/L (21-32); CHLORIDE 107 MMOL/L (98-107); CREATININE SERUM 0.69 MG/DL (0.60-1.30); GFR ESTIMATED > 60; GLUCOSE 91 MG/DL (70-105); MAGNESIUM 1.9 MG/DL (1.8-2.4); POTASSIUM 3.5 MMOL/L (3.6-5.0); SODIUM 142 MMOL/L (135-145)
[2019-01-21] MEDS ORDERED: MIDAZOLAM 5 MG/5 ML (VERSED) VIAL ONE (08:53)
[2019-01-21] MEDS ORDERED: fentaNYL INJECTION 100 MCG/2 ML AMP ONE (08:53)
[2019-01-21] MEDS ORDERED: DOCUSATE SODIUM 100 MG (COLACE) CAP PO PRN (09:00)
[2019-01-21] MEDS ORDERED: MUPIROCIN 2% OINT 22 GM (BACTROBAN) TUBE NSEACH SCH (09:00)
--- NOTE | 2019-01-21 09:29 | NUR ---
Patient taken for heart cath at 0915
--- NOTE | 2019-01-21 10:08 | Cardiac Procedure Note-CS/ASA ---
Pre-Procedure Note Pre-Op Procedure Note H&P Reviewed The H&P was reviewed, patient examined and no changes noted. Date H&P Reviewed: Jan 21, 2019 Time H&P Reviewed: 09:00 Conscious Sedation Pre-Proced Time 09:00 ASA Score 3 For ASA 3 and 4: Consider anesthesia and medical clearance. Also, for patients with a history of failed moderate sedation consider anesthesia. Airway Lungs Heart ASA score ASA 1: a normal healthy patient ASA 2: a patient with a mild systemic disease (mid diabetes, controlled hypertension, obesity x ASA 3: a patient with a severe systemic disease that limits activity (angina, COPD, prior Myocardial infarction) ASA 4: a patient with an incapacitating disease that is a constant threat to life (CHF, renal failure) ASA 5: a moribund patient not expected to survive 24 hrs. (ruptured aneurysm) ASA 6: a declared brain- patient whose organs are being harvested. For emergent operations, add the letter E after the classification Mallampati Classification Grade 3 Sedation Plan Analgesia, Amnesia, Plan communicated to team members, Discussed options with patient/fam, Discussed risks with patient/fam The patient is an appropriate candidate to undergo the planned procedure, sedation, and anesthesia. The patient immediately re-assessed prior to indication. ESTRELLA GRECO MD Jan 21, 2019 10:08
--- NOTE | 2019-01-21 10:10 | Cardiology Progress Note ---
Subjective Date Seen by Provider: Jan 21, 2019 Time Seen by Provider: 10:08 Subjective/Events-last exam Patient is in bed, feeling better, no new complaint Review of Systems General: No Chills, No Night Sweats, No Fatigue, No Malaise, No Appetite, No Other HEENT: No Head Aches, No Visual Changes, No Eye Pain, No Ear Pain, No Dysphasia, No Sinus Congestion, No Post Nasal Drip, No Sore Throat, No Other Pulmonary: No Dyspnea, No Cough, No Pleuritic Chest Pain, No Other Cardiovascular: No: Chest Pain, Palpitations, Orthopnea, Paroxysmal Noc. Dyspnea, Edema, Lt Headedness, Other Objective-Cardiology Exam Last Set of Vital Signs Vital Signs 01/19/19 01/19/19 01/21/19 01/21/19 04:52 07:58 07:58 09:00 Temp 98.7 Pulse 70 Resp 18 B/P (MAP) 144/90 (108) Pulse Ox 97 O2 Delivery Room Air O2 Flow Rate 2.0 FiO2 98 Capillary Refill : Less Than 3 SecondsLess Than 3 Seconds I&O Intake and Output 01/21/19 00:00 Intake Total 1508 ml Output Total 1000 ml Balance 508 ml Intake Oral 1508 ml Output Urine Total 1000 ml # Voids 5 # Bowel Movements 1 General: Alert, Oriented X3, Cooperative HEENT: Atraumatic, PERRLA Neck: Supple, No JVD, No Thyromegaly Lungs: Clear to Auscultation, Normal Air Movement Heart: Regular Rate, Normal S1, Normal S2, No Murmurs Abdomen: Normal Bowel Sounds, Soft, No Tenderness, No Hepatosplenomegaly, No Masses Extremities: No Clubbing, No Cyanosis, No Edema, Normal Pulses, No Tenderness/Swelling Skin: No Rashes, No Breakdown, No Significant Lesion Neuro: Normal Gait, Normal Speech, Strength at 5/5 X4 Ext, Normal Tone, Sensation Intact Psych/Mental Status: Mental Status NL, Mood NL Results Lab Laboratory Tests 01/21/19 06:19 A/P-Cardiology Admission Diagnosis Acute atrial fibrillation Palpitation Chest pain Hypertension Assessment/Plan Paroxysmal atrial fibrillation, converted to sinus rhythm on Cardizem drip, maintained on Toprol orally and Eliquis. Mild elevation in troponin probably secondary to tachycardia, non-ST elevation myocardial infarction type II. cardiac catheter showed mild disease nonobstructive disease. Tortuous abdominal aorta and iliac arteries. 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 Hypertension, controlled, monitor blood pressure Hyperlipidemia maintained on lovastatin, monitor lipids History of Parkinson disease. Clinical Quality Measures AMI/AHF: ASA po Prior to arrival: No DVT/VTE Risk/Contraindication: Risk Factor Score Per Nursin RFS Level Per Nursing on Admit: 2=Moderate ESTRELLA GRECO MD Jan 21, 2019 10:10
[2019-01-21] MEDS ORDERED: NS IV 1000 ML 1,000 ML IV SCH (10:11)
[2019-01-21] MEDS ORDERED: METO-370 PO (10:13)
[2019-01-21] MEDS ORDERED: APIX2.5T PO (10:13)
[2019-01-21] MEDS ORDERED: LISI10TA2 PO (10:13)
--- NOTE | 2019-01-21 10:14 | Discharge Inst-Post CATH ---
Discharge Inst-CATH/EP Problems Reviewed?: Yes Post Cardiac Cath/EP D/C Inst Follow Up/Plan Appointment with Dr. Kaplan's office in 2-4 weeks <b>CARDIAC CATH/EP PROCEDURE DISCHARGE INSTRUCTIONS</b> ACTIVITY * Go Home directly and rest. * Limit activity of the leg (or wrist if it was used) for 7 days including aerob ics, swimming, jogging, bicycling, etc. * Restrict stair-climbing for 7 days if possible, if not, climb up with your non-cath leg, then bring together on the same step. * Avoid lifting, pushing, pulling or excessive movement of the affected extremity for 7 days. * Customary sexual activity may be resumed after 2 days-use caution not to use a position that strains or causes pain to the affected extremity. * No driving for 24 hours. * NO SMOKING. * Avoid straining for bowel movements for 7 days. * Gentle walking on level ground is allowed. * Returning to work will depend on the type of procedure and the results. Your doctor will discuss this with you. CALL YOUR DOCTOR FOR ANY OF THE FOLLOWING: *If bleeding from the puncture site occurs- Apply gentle pressure to site with clean cloth and call your doctor or EMS. * If a knot or lump forms under the skin, increases in size, or causes pain. * If bruising appears to be worsening or moving further down your leg instead of disappearing. * Temperature above 101 F. CARE OF YOUR GROIN INCISION; * Bruising or purple discoloration of the skin near the puncture site is common. * You may shower only, no bathtub bathing for 5 days. Be careful to avoid slipping as your leg may feel stiff. * If a closure device was used on your femoral artery, please see the attached guide regarding care of the device and your leg. * Leave dressing on FOR 24 hours. CARE OF YOUR WRIST INCISION; * Bruising or purple discoloration of the skin near the puncture site is common. * You may shower. * DO NOT submerge wrist. * Leave dressing on FOR 24 hours. ESTRELLA KAPLAN MD Jan 21, 2019 10:14
[2019-01-21] MEDS ORDERED: PATIENT MAY USE OWN MEDS, ALL PO SCH (10:15)
--- NOTE | 2019-01-21 10:30 | NUR ---
275 CC NS 0.9% IV HAS BEEN INFUSED IN [facility] OPERATOR ON PT'S ARRIVAL TO [facility]. IV SITE LEFT FOREARM.
--- NOTE | 2019-01-21 10:32 | Cardiac Cath Report ---
Cardiac Cath Report Physician (s)/Order Caller (s) Physician ESTRELLA GRECO MD Pre-Procedure Diagnosis Pre-Procedure Diagnosis: non-ST elevation myocardial infarction Post-Procedure Note Procedure Start Date: Jan 21, 2019 Name of Procedure: Left heart catheterization Left ventriculogram Abdominal aortogram Findings/Procedure Note PROCEDURE NOTE: 84 years old lady admitted with atrial fibrillation, had chest pain, elevated troponin, she was scheduled for cardiac catheterization. After explaining the procedure to the patient, all pros and cons were explained, all questions were answered. The patient signed the consent and then she was placed on the cardiac catheterization laboratory. Groin was prepped SL fashion local anesthesia was used. Sheath placed in the Right femoral artery, had difficulty advancing the J-wire through the iliac and femoral arteries, advanced the JR to the right carotid system, multiple views were obtained filter changer long stork wire into Sean left catheter, advanced and left carotid system, multiple views were obtained and exchanged into a pigtail catheter advanced to the left ventricular cavity and left ventriculogram was done. Pullback LV to aorta was done. The catheter down to the abdominal aorta and abdominal aortogram due to the significant tortuosity and evaluated the bifurcation. At the end of the procedure the sheath was removed. Closure device was used FINDINGS: Hemodynamics LV 152/12, end-diastolic pressure of 12 Aorta 155/76, mean of 106 ANATOMY: Left Main history of obstructive disease Left Anterior Descending is tortuous artery with mild disease nonobstructive disease Left Circumflex is tortuous artery with mild disease nonobstructive disease Right Coronory Artery is tortuous artery with mild disease nonobstructive disease LV Gram was done and it was normal in size with normal contraction. Estimated ejection fraction 60 percent Aorta evaluation done with abdominal aortogram which showed atherosclerotic plaques in the abdominal aorta, inferior mesenteric artery is normal, there is questionable arthroscopic disease in the right renal artery, was not well- visualized, the bifurcation of the aorta was normal with significant tortuosity in the common iliac and common femoral arteries. CONCLUSION: 1. Tortuous coronary system with mild disease nonobstructive disease 2. Normal left ventricular size and systolic function estimated ejection fraction 60 percent 3. Heavily calcified right renal artery, was not well-visualized, possible significant stenosis, consider CT angiogram of the renal arteries 4. Tortuous iliac and femoral arteries DISCUSSION AND RECOMMENDATION: continue to maximize medical treatment at this time. No intervention is needed Anesthesia Type: Conscious Sedation Estimated blood loss (mL): 20 ml Contrast Amount: 55 ml Total Radiation Dose: 189 mGy Post-Procedure Diagnosis Post-operative diagnosis: Chronic atrial fibrillation Non-ST elevation TN Hypertension Hyperlipidemia ESTRELLA GRECO MD Jan 21, 2019 10:32
--- NOTE | 2019-01-21 14:30 | NUR ---
500 CC NS 0.9% IV INFUSED IN [facility] BEFORE TRANSPORTING TO [address] [place] [address]
--- NOTE | 2019-01-21 14:35 | NUR ---
TO ROOM [address], [address] [place] [address] PER BED WITH STAFF X2, MONITORED. REPORT TO Jf SZYMANSKI RN AND CARE OF PT TRANSFERRED TO [address] [place] [address].
[2019-01-21] MEDS: rOPINIRole 1 MG (REQUIP) TABLET PO SCH ×2 (14:53→14:55)
[2019-01-21] MEDS: meTOproloL SUCCINATE 50 MG (TOPROL XL) TAB PO SCH (14:53)
[2019-01-21] MEDS: lisINopril 10 MG (PRINIVIL) TABLET PO SCH (14:54)
--- NOTE | 2019-01-21 14:54 | NUR ---
prior to b/p medication pulse was 68 bpm and b/p was 177/94.
--- NOTE | 2019-01-21 14:55 | NUR ---
1300 dose of requip held as this RN just gave 0900 medications that had requip dose in the a.m. medication pass.
--- NOTE | 2019-01-21 15:39 | Discharge Inst-Simple/Standard ---
Discharge Inst-Standard Reconcile Patient Problems Problems Reviewed?: Yes Discharge Medications New, Converted or Re-Newed RX: Transmitted to Pharmacy Patient Instructions/Follow Up Plan of Care/Instructions/FU: Take medications as prescribed. Follow up with cardiology as scheduled. Activity as Tolerated: Yes Discharge Diet: No Restrictions Return to The Hospital For: chest pain, shortness of breath, lightheadedness or dizziness, or if you feel like you are getting worse. WILL CHILDS MD Jan 21, 2019 15:39
--- NOTE | 2019-01-21 15:45 | Discharge Summary ---
Diagnosis/Chief Complaint Date of Admission Jan 20, 2019 at 11:42 Date of Discharge Discharge Date: Jan 21, 2019 Discharge Time: 1500 Admission Diagnosis Atrial fibrillation with rapid ventricular response Discharge Diagnosis Atrial fibrillation with rapid ventricular response NSTEMI type II (1) Atrial fibrillation with rapid ventricular response Status: Acute (2) NSTEMI (non-ST elevated myocardial infarction) (3) Hypokalemia Status: Resolved (4) Hypertension (5) Parkinson's disease (6) HLD (hyperlipidemia) Discharge Summary Procedures/Consulations Cardiology-left heart catheterization Discharge Physical Exam Allergies: Coded Allergies: Sulfa (Sulfonamide Antibiotics) (Verified Allergy, Unknown, 12/13/18) Vitals & I&Os Vital Signs Date Time Temp Pulse Resp B/P (MAP) Pulse Ox O2 Delivery O2 Flow Rate FiO2 01/21/19 14:30 63 18 171/97 (121) 95 Room Air 01/21/19 12:00 2.00 01/21/19 10:45 97.4 01/19/19 04:52 98 General Appearance: No Apparent Distress, WD/WN HEENT: PERRL/EOMI, Pharynx Normal Respiratory: Normal Breath Sounds, No Respiratory Distress Cardiovascular: Regular Rate, Rhythm, No Murmur Gastrointestinal: Normal Bowel Sounds, Non Tender, Soft Extremity: Normal Inspection, No Pedal Edema Skin: Normal Color, Warm/Dry Neurologic/Psychiatric: Alert; No Disoriented Hospital Course Tessa Mccartney is an 84yoF who was admitted with new onset atrial fibrillation with rapid ventricular response. She was started on a Diltiazem drip and she converted to normal sinus rhythm. Her metoprolol dose was increased and she was started on Eliquis. Her troponin level trended up and peaked at 0.29, then trended down. She underwent left heart cath which showed no significant CAD, and no intervention was performed. She was also started on Lisinopril for unc ontrolled hypertension. She will follow up with Dr. Kaplan in one month. Labs (last 24 hrs) Laboratory Tests 01/21/19 06:19: Sodium Level 142, Potassium Level 3.5L, Chloride Level 107, Carbon Dioxide Level 27, Anion Gap 8, Blood Urea Nitrogen 15, Creatinine 0.69, Estimat Glomerular Filtration Rate > 60, BUN/Creatinine Ratio 22, Glucose Level 91, Calcium Level 9.0, Magnesium Level 1.9 Microbiology 01/19/19 MRSA Screen - Final, Complete Patient resulted labs reviewed. Discussion & Recommendations Discharge Planning: <30 minutes discharge planning Discharge Home Medications: Active Scripts Active Lisinopril 10 Mg Tablet 10 Mg PO DAILY Metoprolol Succinate 50 Mg Tab.er.24h 50 Mg PO DAILY Eliquis (Apixaban) 2.5 Mg Tablet 2.5 Mg PO BID Reported Lovastatin 10 Mg Tablet 10 Mg PO HS Hydrocodone-Acetamin 5-325 mg (Hydrocodone/Acetaminophen) 1 Each Tablet 1 Tab PO Q8H PRN Aspir 81 (Aspirin) 81 Mg Tablet.dr 81 Mg PO HS Ropinirole HCl 1 Mg Tablet 1 Mg PO TID Carbidopa-Levodopa 25-100 Tab (Carbidopa/Levodopa) 1 Each Tablet 2 Tab PO TID Docusate Sodium 100 Mg Capsule 200 Mg PO DAILY PRN TAKES 2 (100 MG) CAPSULES Vitamin D3 (Cholecalciferol (Vitamin D3)) 2,000 Unit Capsule 2,000 Unit PO DAILY Multivitamins (Multivitamin) 1 Each Tablet 1 Tab PO DAILY Diclofenac Sodium 50 Mg Tablet.dr 50 Mg PO BID LAST FILLED 11-06-2018 Diazepam 10 Mg Tablet 10 Mg PO HS PRN Tramadol HCl 50 Mg Tablet 50 Mg PO Q6H PRN Condition at discharge Stable Instructions to patient/family Please see electronic discharge instructions given to patient. Clinical Quality Measures AMI/AHF: ASA po Prior to arrival: No DVT/VTE Risk/Contraindication: Risk Factor Score Per Nursin RFS Level Per Nursing on Admit: 2=Moderate WILL CHILDS MD Jan 21, 2019 15:45
== END 2019-01-21 16:40 | disposition home or self-care (01) | DRG 282 ==
LOC: EDUNIT# 05:04 → ER 05:08 → ICU 07:03 → UNDOADMOB 07:03 → ICU 08:00 → 4TH 13:35 → INTOOBSV 01-20 11:42 → OBSVTOIN 01-20 11:42
PROVIDERS: ADMIT Family Medicine; ATTEND Internal Medicine
PROC: 4A023N7 Measurement of Cardiac Sampling and Pressure, Left Heart, Percutaneous Approach (ICD-10-PCS; principal; 2019-01-21)
PROC: B2111ZZ Fluoroscopy of Multiple Coronary Arteries using Low Osmolar Contrast (ICD-10-PCS; 2019-01-21)
PROC: B2151ZZ Fluoroscopy of Left Heart using Low Osmolar Contrast (ICD-10-PCS; 2019-01-21)
PROC: B4101ZZ Fluoroscopy of Abdominal Aorta using Low Osmolar Contrast (ICD-10-PCS; 2019-01-21)
DX: I48.0 Paroxysmal atrial fibrillation (principal); I21.A1 Myocardial infarction type 2; I25.10 Atherosclerotic heart disease of native coronary artery without angina pectoris; I70.0 Atherosclerosis of aorta; I70.1 Atherosclerosis of renal artery; E87.6 Hypokalemia; I10 Essential (primary) hypertension; G51.0 Bell's palsy; G20 Parkinson's disease; E78.5 Hyperlipidemia, unspecified; J30.2 Other seasonal allergic rhinitis; M54.9 Dorsalgia, unspecified; M19.91 Primary osteoarthritis, unspecified site; F41.9 Anxiety disorder, unspecified; Z79.82 Long term (current) use of aspirin; Z87.891 Personal history of nicotine dependence; Z96.653 Presence of artificial knee joint, bilateral; Z96.612 Presence of left artificial shoulder joint
CPT/HCPCS: 36415; 71045; 75625; 80048; 80053; 80061; 83735; 83874; 83880; 84443; 84484; 85025; 85027; 85610; 85730; 87081; 93005; 93041; 93306; 93458; G0378

== ENCOUNTER 2019-07-04 08:01 | Inpatient (IN) | payer MEDICARE, OTHER ==
[~2019-07-04] VITALS: Ht 167.7 cm; Wt 51.9 kg
[~2019-07-04 08:01] MED LIST changes: +APIX2.5T PO; +ASPI-586 PO; +CARB1TAB19 PO; +HYDR-3812 PO; +LISI10TA2 PO; +LOVA10TA PO; -METO-387 PO; +METO50TA7 PO; +MTP25TSR PO; +ROPI1TAB2 PO; -TRAM50TA2 PO; +TRM50T PO
[2019-07-04] MEDS: NITROGLYCERIN 0.4 MG SL TABS BTL 25'S SL PRN ×3 (08:27→08:53)
[2019-07-04 08:30] LABS: BASOPHILS % (AUTO) 1 % (0-10); EOSINOPHILS # (AUTO) 0.2 10^3/uL (0.0-0.3); EOSINOPHILS % (AUTO) 2 % (0-10); HEMATOCRIT 47 % (35-52); HEMOGLOBIN 14.6 G/DL (11.5-16.0); LYMPHOCYTES # (AUTO) 2.3 X 10^3 (1.0-4.0); LYMPHOCYTES % (AUTO) 27 % (12-44); MEAN CORPUSCULAR HEMOGLOBIN 28 PG (25-34); MEAN CORPUSCULAR HGB CONC 31 G/DL (32-36); MEAN CORPUSCULAR VOLUME 90 FL (80-99); MEAN PLATELET VOLUME 10.8 FL (7.4-10.4); MONOCYTES # (AUTO) 1.1 X 10^3 (0.0-1.0); MONOCYTES % (AUTO) 13 % (0-12); NEUTROPHILS # (AUTO) 4.9 X 10^3 (1.8-7.8); NEUTROPHILS % (AUTO) 58 % (42-75); PLATELET COUNT 252 10^3/uL (130-400); RED CELL DISTRIBUTION WIDTH 16.2 % (10.0-14.5); WHITE BLOOD COUNT 8.5 10^3/uL (4.3-11.0)
[2019-07-04] MEDS ORDERED: APIXABAN 5 MG (ELIQUIS) TABLET PO ONE (08:30)
[2019-07-04] MEDS ORDERED: ASPIRIN 81 MG CHEW (CHILDREN'S ASA) PO ONE ×2 (08:30→18:45)
[2019-07-04] MEDS ORDERED: APIXABAN 2.5 MG (ELIQUIS) TABLET PO ONE (08:30)
[2019-07-04 08:50] LABS: ALANINE AMINOTRANSFERASE 15 U/L (0-55); ALBUMIN 4.4 GM/DL (3.2-4.5); ALKALINE PHOSPHATASE 97 U/L (40-136); BILIRUBIN,TOTAL 0.5 MG/DL (0.1-1.0); BUN/CREATININE RATIO 20; CALCIUM 9.4 MG/DL (8.5-10.1); CARBON DIOXIDE 25 MMOL/L (21-32); CHLORIDE 105 MMOL/L (98-107); CREATININE SERUM 0.79 MG/DL (0.60-1.30); GFR ESTIMATED > 60; GLUCOSE 82 MG/DL (70-105); POTASSIUM 3.7 MMOL/L (3.6-5.0); SODIUM 141 MMOL/L (135-145); TOTAL PROTEIN 7.6 GM/DL (6.4-8.2)
[2019-07-04 08:52] LABS: INR 0.9 (0.8-1.4); PROTHROMBIN TIME PATIENT 12.9 SEC (12.2-14.7)
--- NOTE | 2019-07-04 08:53 | NUR ---
UP TO [facility] REPORTS FEELING SOA DR BATISTA NOTIFED PLACED ON O2
[2019-07-04 09:09] VITALS: BP 160/100
--- NOTE | 2019-07-04 09:18 | Diagnostic Imaging Report ---
INDICATION: Chest pain starting this morning. TECHNIQUE: Single view chest 9:09 AM. CORRELATION STUDY: 01/19/2019 FINDINGS: Heart size enlarged but stable. Vasculature appears unchanged. Lung dawn are clear but demonstrate slight hyperinflation, mildly prominent interstitial markings appearing chronic. Postop changes of the left shoulder. There is fracture deformity about the proximal right humerus appears be largely chronic. Kyphoplasty changes are also noted, scoliotic curvature thoracic spine. IMPRESSION: 1. Generally stable chest demonstrates no acute abnormality. Stable cardiac enlargement. Dictated by: Dictated on workstation # [id number]
--- NOTE | 2019-07-04 09:24 | ED Chest Pain ---
General Chief Complaint: Chest Pain Stated Complaint: CHEST PAIN Nursing Triage Note: AMB TO ROOM ONSET OF CHEST PAIN THIS AM IN CENTER OF CHEST, AND RADIATES ACROSS CHEST. Nursing Sepsis Screen: No Definite Risk Source: patient Exam Limitations: no limitations History of Present Illness Date Seen by Provider: Jul 04, 2019 Time Seen by Provider: 08:06 Initial Comments This 84-year-old woman presents to the emergency room with complaints of chest tightness that started this morning. She chewed 2 aspirin at home but the pain did not improve. Time of onset was around 06:30. The sensation "feels like a rock in my chest". Her reports heart rate at the time was in the 50s and 60s. Blood pressure is markedly elevated on arrival. Patient states she feels like she needs to belch. She has a history of paroxysmal atrial fibrillation and is on Eliquis. She had a cardiac catheterization by Dr. Kaplan in January 2019. She had noted tortuous coronary arteries but no obstructive disease. She had been admitted at that time for non-ST elevation NM. Allergies and Home Medications Allergies Coded Allergies: Sulfa (Sulfonamide Antibiotics) (Verified Allergy, Unknown, 07/04/19) Home Medications Amlodipine Besylate 5 Mg Tablet, 5 MG PO DAILY Prescribed by: KING RUSH on 07/04/19 1125 Apixaban 2.5 Mg Tablet, 2.5 MG PO BID Prescribed by: ESTRELLA KAPLAN on 01/21/19 1013 Aspirin 81 Mg Tablet.dr, 81 MG PO HS, (Reported) Carbidopa/Levodopa 1 Each Tablet, 2 TAB PO TID, (Reported) Cholecalciferol (Vitamin D3) 2,000 Unit Capsule, 2,000 UNIT PO DAILY, (Reported) Diazepam 10 Mg Tablet, 10 MG PO HS PRN for ANXIETY, (Reported) Diclofenac Sodium 50 Mg Tablet.dr, 50 MG PO BID, (Reported) LAST FILLED 11-06-2018 Docusate Sodium 100 Mg Capsule, 200 MG PO DAILY PRN for CONSTIPATION-1ST LINE, (Reported) TAKES 2 (100 MG) CAPSULES Hydrocodone/Acetaminophen 1 Each Tablet, 1 TAB PO Q8H PRN for PAIN-MODERATE, (Reported) Lisinopril 10 Mg Tablet, 10 MG PO DAILY Prescribed by: ESTRELLA KAPLAN on 01/21/19 1013 Lovastatin 10 Mg Tablet, 10 MG PO HS, (Reported) Metoprolol Succinate 50 Mg Tab.er.24h, 25 MG PO DAILY Prescribed by: OLIVA MOON on 07/04/19 1412 Multivitamin 1 Each Tablet, 1 TAB PO DAILY, (Reported) Ropinirole HCl 1 Mg Tablet, 1 MG PO TID, (Reported) Tramadol HCl 50 Mg Tablet, 50 MG PO Q6H PRN for PAIN-MODERATE, (Reported) Patient Home Medication List Home Medication List Reviewed: Yes Review of Systems Review of Systems Constitutional: no symptoms reported EENTM: No Symptoms Reported Respiratory: No Symptoms Reported Cardiovascular: See HPI Gastrointestinal: See HPI Genitourinary: No Symptoms Reported Musculoskeletal: no symptoms reported Skin: no symptoms reported Psychiatric/Neurological: No Symptoms Reported Endocrine: No Symptoms Reported Hematologic/Lymphatic: No Symptoms Reported Past Nxtnbdm-Tgvoth-Xamoqv Hx Patient Social History Alcohol Use: Denies Use Recreational Drug Use: No Smoking Status: Former Smoker Type Used: Cigarettes Former Smoker, Quit: Jun 17, 1999 Recent Foreign Travel: No Contact w/Someone Who Travel: No Recent Infectious Disease Expo: No Recent Hopitalizations: No Immunizations Up To Date Tetanus Booster (TDap): Less than 5yrs PED Vaccines UTD: Yes Date of Pneumonia Vaccine: Feb 20, 2016 Date of Influenza Vaccine: Mar 20, 2016 Seasonal Allergies Seasonal Allergies: Yes Past Medical History Surgeries: Yes Abdominal, Cardiac (cardiac catheter January 2019 without obstructive disease), Hysterectomy, Orthopedic, Tonsillectomy Respiratory: No Cardiac: Yes Atrial Fibrillation (paroxysmal), Heart Attack (non-ST elevation), Hypertension Neurological: Yes (tremor) Stroke Reproductive Disorders: No 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: Hysterectomy, Menopausal Sexually Transmitted Disease: No Genitourinary: No Gastrointestinal: No Musculoskeletal: Yes (BILATERAL KNEE REPLACEMENTS; LEFT SHOULDER REPLACEMENTS; ) Degenerate Disk Disease, Arthritis, Chronic Back Pain Endocrine: No HEENT: No Cancer: No Psychosocial: Yes Anxiety Blood Disorders: No Family Medical History No Pertinent Family Hx Physical Exam Vital Signs Vital Signs - First Documented 07/04/19 07/04/19 08:01 08:53 Temp 36.4 Pulse 65 Resp 18 B/P (MAP) 216/119 (151) Pulse Ox 92 O2 Delivery Room Air O2 Flow Rate 2.00 Capillary Refill : Less Than 3 Seconds Height, Weight, BMI Height: 5'7.00" Weight: 123lbs. 2.0oz. 55.407171lq; 19.00 BMI Method:Stated General Appearance: No Apparent Distress, WD/WN, Thin HEENT: PERRL/EOMI, Normal ENT Inspection Neck: Normal Inspection Respiratory: Lungs Clear, Normal Breath Sounds, No Accessory Muscle Use, No Respiratory Distress, Other (Anterior chest slightly TTP) Cardiovascular: Regular Rate, Rhythm, No Edema, No Murmur, Normal Peripheral Pulses Gastrointestinal: Normal Bowel Sounds, Non Tender, Soft Extremity: Normal Inspection, Non Tender, No Calf Tenderness, No Pedal Edema Neurologic/Psychiatric: Alert, Oriented x3, No Motor/Sensory Deficits, Normal Mood/Affect, baggage smasher II-XII Norm as Tested Skin: Normal Color, Warm/Dry Progress/Results/Core Measures Results/Orders Lab Results Laboratory Tests Test 07/04/19 08:21 07/04/19 10:40 Range/Units White Blood Count 8.5 4.3-11.0 10^3/uL Red Blood Count 5.29 4.35-5.85 10^6/uL Hemoglobin 14.6 11.5-16.0 G/DL Hematocrit 47 35-52 % Mean Corpuscular Volume 90 80-99 FL Mean Corpuscular Hemoglobin 28 25-34 PG Mean Corpuscular Hemoglobin Concent 31 L 32-36 G/DL Red Cell Distribution Width 16.2 H 10.0-14.5 % Platelet Count 252 130-400 10^3/uL Mean Platelet Volume 10.8 H 7.4-10.4 FL Neutrophils (%) (Auto) 58 42-75 % Lymphocytes (%) (Auto) 27 12-44 % Monocytes (%) (Auto) 13 H 0-12 % Eosinophils (%) (Auto) 2 0-10 % Basophils (%) (Auto) 1 0-10 % Neutrophils # (Auto) 4.9 1.8-7.8 X 10^3 Lymphocytes # (Auto) 2.3 1.0-4.0 X 10^3 Monocytes # (Auto) 1.1 H 0.0-1.0 X 10^3 Eosinophils # (Auto) 0.2 0.0-0.3 10^3/uL Basophils # (Auto) 0.0 0.0-0.1 10^3/uL Prothrombin Time 12.9 12.2-14.7 SEC INR Comment 0.9 0.8-1.4 Activated Partial Thromboplast Time 28 24-35 SEC Sodium Level 141 135-145 MMOL/L Potassium Level 3.7 3.6-5.0 MMOL/L Chloride Level 105 98-107 MMOL/L Carbon Dioxide Level 25 21-32 MMOL/L Anion Gap 11 5-14 MMOL/L Blood Urea Nitrogen 16 7-18 MG/DL Creatinine 0.79 0.60-1.30 MG/DL Estimat Glomerular Filtration Rate > 60 BUN/Creatinine Ratio 20 Glucose Level 82 70-105 MG/DL Calcium Level 9.4 8.5-10.1 MG/DL Corrected Calcium 9.1 8.5-10.1 MG/DL Magnesium Level 2.0 1.6-2.4 MG/DL Total Bilirubin 0.5 0.1-1.0 MG/DL Aspartate Amino Transf (AST/SGOT) 20 5-34 U/L Alanine Aminotransferase (ALT/SGPT) 15 0-55 U/L Alkaline Phosphatase 97 40-136 U/L Myoglobin 45.5 10.0-92.0 NG/ML Troponin I < 0.028 0.921 *H <0.028 NG/ML B-Type Natriuretic Peptide 244.4 H <100.0 PG/ML Total Protein 7.6 6.4-8.2 GM/DL Albumin 4.4 3.2-4.5 GM/DL TSH [place] Testing 0.76 0.35-4.94 UIU/ML My Orders Orders - KING CHOUDHURY MD Ekg Tracing (07/04/19 08:02) Cbc With Automated Diff (07/04/19 08:06) Magnesium (07/04/19 08:06) Chest 1 View, Ap/Pa Only (07/04/19 08:06) Ekg Tracing (07/04/19 08:06) Comprehensive Metabolic Panel (07/04/19 08:06) Myoglobin Serum (07/04/19 08:06) Protime With Inr (07/04/19 08:06) Partial Thromboplastin Time (07/04/19 08:06) O2 (07/04/19 08:06) Monitor-Rhythm Ecg Trace Only (07/04/19 08:06) Lipid Panel (07/05/19 06:00) Ed Iv/Invasive Line Start (07/04/19 08:06) Troponin I (07/04/19 08:06) Nitroglycerin 0.4 Mg Btl 25's (Nitrostat (07/04/19 08:30) Aspirin Chewable Tablet (Baby Aspirin Ch (07/04/19 08:30) Apixaban Tablet (Eliquis Tablet) (07/04/19 08:30) Apixaban Tablet (Eliquis Tablet) (07/04/19 08:30) Thyroid Analyzer (07/04/19 08:29) BNP (07/04/19 09:01) Troponin I (07/04/19 10:30) Metoprolol Succinate (Xl) Tab (Toprol Xl (07/04/19 09:30) Lisinopril Tablet (Zestril Tablet) (07/04/19 09:30) Amlodipine Tablet (Norvasc Tablet) (07/04/19 09:30) Famotidine Injection (Pepcid Injection) (07/04/19 09:30) Lidocaine 2% Viscous 15 Ml (Xylocaine Vi (07/04/19 09:30) Antacid Suspension (Mylanta Suspension (07/04/19 09:30) Albuterol/Ipra Inhalation Soln (Duoneb I (07/04/19 11:45) Svn Small Volume Nebulizer (07/04/19 11:34) Medications Given in ED Current Medications Medications Dose Ordered Sig/Ysabel Route Start Time Stop Time Status Last Admin Dose Admin Al Hydrox/Mg Hydrox/Simethicone 30 ml ONCE ONCE PO 07/04/19 09:30 07/04/19 09:31 DC 07/04/19 09:38 30 ML Albuterol/ Ipratropium 3 ml ONCE ONCE INH 07/04/19 11:45 07/04/19 11:46 DC 07/04/19 11:51 3 ML Amlodipine Besylate 5 mg ONCE ONCE PO 07/04/19 09:30 07/04/19 09:31 DC 07/04/19 09:35 5 MG Apixaban 2.5 mg ONCE ONCE PO 07/04/19 08:30 07/04/19 08:31 DC 07/04/19 08:31 2.5 MG Aspirin 162 mg ONCE ONCE PO 07/04/19 08:30 07/04/19 08:31 DC 07/04/19 08:27 162 MG Famotidine 20 mg ONCE ONCE IVP 07/04/19 09:30 07/04/19 09:31 DC 07/04/19 09:40 20 MG Lidocaine HCl 15 ml ONCE ONCE PO 07/04/19 09:30 07/04/19 09:31 DC 07/04/19 09:37 15 ML Lisinopril 10 mg ONCE ONCE PO 07/04/19 09:30 07/04/19 09:31 DC 07/04/19 09:35 10 MG Metoprolol Succinate 25 mg ONCE ONCE PO 07/04/19 09:30 07/04/19 09:31 DC 07/04/19 09:38 25 MG Nitroglycerin 0.4 mg UD PRN SL 07/04/19 08:30 07/04/19 08:55 DC 07/04/19 08:53 0.4 MG Vital Signs/I&O 07/04/19 07/04/19 07/04/19 07/04/19 08:01 08:53 09:09 11:52 Temp 36.4 Pulse 65 66 Resp 18 18 B/P (MAP) 216/119 (151) 160/100 (120) Pulse Ox 92 88 97 95 O2 Delivery Room Air Room Air Room Air Room Air O2 Flow Rate 2.00 07/04/19 12:35 Pulse 70 Resp 18 B/P (MAP) 181/90 (120) Pulse Ox 94 O2 Delivery Room Air Blood Pressure Mean: 120 Progress Progress Note #1: Time: 09:19 Progress Note Initial cardiac workup was unremarkable. Patient received 2 additional aspirin and nitroglycerin 3. Blood pressure improved to 160/100 after nitroglycerin. Pain improved from 5/10 down to 3/10 after the first 2 nitroglycerin. However, after the third nitroglycerin her pain increased again to 6/10. Case was discussed with Dr. Khalil. He recommended a repeat troponin. He also recommended giving the patient her usual antihypertensive medications as well as amlodipine 5 mg for additional vasodilatory effects. We discussed CT angiogram of the renal arteries based on cardiac catheter report from January. He suggested this be worked up further on an outpatient basis. Since patient states feeling a recurrent sensation of needing to belch, we will try Pepcid and a GI cocktail for treatment of her pain. Patient's Eliquis 2.5 mg was given as she had not yet taken her morning dose. Progress Note #2: Time: 11:17 Progress Note Chest pain resolved with Pepcid and GI cocktail. Blood pressure has improved from presentation but is still elevated with systolic blood pressures in the 160s to 180s. This is acceptable as we want to slowly decrease her blood pressure. Progress Note #3: Time: 12:39 Progress Note Patient's repeat troponin was elevated. Case was discussed again with Dr. Khalil and admission was felt necessary. Blood pressure has been stable in the 160-180 range systolic. Patient was slightly hypoxic when NC O2 was removed. DuoNeb treatment was ordered and NC O2 was replaced. Initial ECG Impression Date: Jul 04, 2019 Initial ECG Impression Time: 08:02 Initial ECG Rate: 69 Initial ECG Rhythm: Normal Sinus Initial ECG Intervals: Normal Initial ECG Impression: Normal Comment Normal sinus rhythm with no ST elevation or depression no abnormal intervals. LVH. Diagnostic Imaging Diagonstic Imaging: Xray Plain Films/CT/US/NM/MRI: chest Comments Chest x-ray viewed by me and report reviewed. See report below: NAME: MJ KRAMER MED REC#: [id number] PT STATUS: REG ER : 1935 PHYSICIAN: KING CHOUDHURY MD ADMIT DATE: 07/04/19/ER Draft Date of Exam:07/04/19 CHEST 1 VIEW, AP/PA ONLY INDICATION: Chest pain starting this morning. TECHNIQUE: Single view chest 9:09 AM. CORRELATION STUDY: 01/19/2019 FINDINGS: Heart size enlarged but stable. Vasculature appears unchanged. Lung dawn are clear but demonstrate slight hyperinflation, mildly prominent interstitial markings appearing chronic. Postop changes of the left shoulder. There is fracture deformity about the proximal right humerus appears be largely chronic. Kyphoplasty changes are also noted, scoliotic curvature thoracic spine. IMPRESSION: 1. Generally stable chest demonstrates no acute abnormality. Stable cardiac enlargement. Dictated on workstation # [id number] Dict: 07/04/19913 Trans: 07/04/1917 CV [id number] Interpreted by: SP PINZON DO Departure Communication (Admissions) Time/Spoke to Admitting Phy: 12:30 Dr. Resendiz Time/Spoke to Consulting Phy: 12:00 Dr. Khalil Impression Primary Impression: Chest pain Qualified Codes: R07.9 - Chest pain, unspecified Additional Impressions: Hypertension Qualified Codes: I10 - Essential (primary) hypertension Elevated troponin Hypoxia Disposition: HOME, SELF-CARE Condition: Improved Admissions Decision to Admit Reason: Admit from ER (General) Decision to Admit/Date: Jul 04, 2019 Time/Decision to Admit Time: 11:50 Departure-Patient Inst. Decision time for Depature: 11:22 Referrals: NO,LOCAL PHYSICIAN (PCP/Family) Primary Care Physician Patient Instructions: Chest Pain That Is Not Caused by the Heart (DC), High Blood Pressure in Adults Add. Discharge Instructions: Drink plenty of clear liquids and eat a low-salt diet. Add amlodipine as prescribed to your blood pressure treatment tomorrow. Add Protonix as prescribed for antacid treatment. Acid reflux may have caused your chest pain. Please take your first dose today. Follow-up with Dr. Kaplan on Saturday and return to care if you have worsening s ymptoms. All discharge instructions reviewed with patient and/or family. Voiced understanding. Scripts Metoprolol Succinate (Metoprolol Succinate) 50 Mg Tab.er.24h 25 MG PO DAILY, #30 TAB 4 Refills Prov: NAPOLEON RESENDIZ MD 07/04/19 Amlodipine Besylate (Amlodipine Besylate) 5 Mg Tablet 5 MG PO DAILY, #30 TAB Prov: KING CHOUDHURY MD 07/04/19 Copy Copies To 1: ESTRELLA KAPLAN MD, JOSHUA T MD Jul 04, 2019 09:24
[2019-07-04] MEDS ORDERED: amLODIPine 5 MG (NORVASC) TAB PO ONE (09:30)
[2019-07-04] MEDS ORDERED: lisINopril 10 MG (PRINIVIL) TABLET PO ONE (09:30)
[2019-07-04] MEDS ORDERED: LIDOCAINE 2% VISCOUS 15 ML UDC PO ONE (09:30)
[2019-07-04] MEDS ORDERED: FAMOTIDINE 20MG/2ML IV (PEPCID) IVP ONE (09:30)
[2019-07-04] MEDS ORDERED: ANTACID SUSP 30 ML UDC (MYLANTA) PO ONE (09:30)
--- NOTE | 2019-07-04 10:29 | NUR ---
TO ROOM REPORTS THAT PAIN GONE
[2019-07-04] MEDS ORDERED: AMLO5TAB9 PO (11:25)
[2019-07-04] MEDS ORDERED: PANT40TA2 PO (11:25)
[2019-07-04] MEDS ORDERED: RT-ALBUTEROL/IPRATROPIUM 3 ML (DUONEB) VIAL INH ONE (11:45)
[2019-07-04 12:35] VITALS: BP 181/90
--- NOTE | 2019-07-04 12:40 | NUR ---
UP TO BSC LG SOFT STOOL NOTED
--- NOTE | 2019-07-04 13:18 | NUR ---
REPORT TAKEN AT THIS TIME FROM NANCY DENNISON FROM ER. THIS RN WILL ASSUME CARE OF THIS PATIENT WHEN SHE ARRIVES TO 4TH FLOOR.
[2019-07-04] MEDS ORDERED: NITROGLYCERIN 0.4 MG SL TABS BTL 25'S SL PRN (14:00)
[2019-07-04] MEDS ORDERED: CATHETER FLUSH 10 ML SYR IV PRN (14:00)
[2019-07-04] MEDS ORDERED: ONDANSETRON 4 MG/2 ML (SDV) Z0FRAN IV PRN (14:00)
[2019-07-04] MEDS ORDERED: morphine INJ 4 MG/ML 1 ML (VIAL/SYRINGE) IV PRN (14:00)
[2019-07-04] MEDS ORDERED: METO50TA7 PO (14:12)
[2019-07-04] MEDS: PANTOPRAZOLE 40 MG (PROTONIX) TAB PO SCH (14:14)
[2019-07-04] MEDS: CATHETER FLUSH 10 ML SYR IV SCH ×2 (14:14→21:07)
[2019-07-04 14:33] VITALS: BP 177/84
[2019-07-04] MEDS ORDERED: RT-ALBUTEROL SULF 2.5 MG/3 ML PRE-MIX VIAL INH PRN (14:45)
[2019-07-04] MEDS ORDERED: NON-FORMULARY MEDICATION 1 EA EA (Diazepam 10 MG) PO PRN (15:00)
[2019-07-04] MEDS ORDERED: RX-HYDROCODONE/APAP 5/325 MG #4 TAB PK PO PRN (15:00)
--- NOTE | 2019-07-04 15:03 | History & Physical-Hospitalist ---
History of Present Illness HPI/Chief Complaint this is an 84-year-old white female well known to me with a past history of atrial fibrillation. She awakened this morning with midsternal chest pain without radiation without nausea without diaphoresis that felt like a rock on her chest. She was somewhat hypoxic and very hypertensive when she presented to the emergency room where troponin became positive on the second dose. She had had a heart catheter over the summer with tortuous but non-obstructing coronary artery disease. Her case has been discussed with who feels like observation blood pressure control and review of her heart catheter is in order. Source: patient Exam Limitations: no limitations Date Seen 07/04/19 Time Seen by a Provider: 14:30 Attending Physician Ratna Gallegos MD PCP No,Local Physician Referring Physician Date of Admission Jul 04, 2019 at 12:35 Home Medications & Allergies Home Medications Reviewed patient Home Medication Reconciliation performed by pharmacy medication reconciliations ophthalmic technician and/or nursing. Patients Allergies have been reviewed. Allergies Allergies Coded Allergies Sulfa (Sulfonamide Antibiotics) (Verified Allergy, Unknown, 07/04/19) Past [id number]-Dvyifr-Gtsgxp Hx Past Med/Social Hx: Reviewed Nursing Past Med/Soc Hx Patient Social History Marrital Status: Employed/Student: retired Alcohol Use: Denies Use Recreational Drug Use: No Smoking Status: Former Smoker Former Smoker, Quit: Jun 17, 1999 Type Used: Cigarettes Recent Foreign Travel: No Contact w/other who traveled: No Recent Hopitalizations: No Recent Infectious Disease Expo: No Immunizations Up To Date Tetanus Booster (TDap): Less than 5yrs Pediatric: Yes Date of Pneumonia Vaccine: Feb 20, 2016 Date of Influenza Vaccine: Jun 10, 2019 Seasonal Allergies Seasonal Allergies: Yes Past Medical History Surgeries: Abdominal, Cardiac (cardiac catheter January 2019 without obstructive disease), Hysterectomy, Orthopedic, Tonsillectomy Cardiac: Atrial Fibrillation (paroxysmal), Heart Attack (non-ST elevation), Hypertension Neurological: Stroke Reproductive: No Sexually Transmitted Disease: No Hysterectomy, Menopausal Musculoskeletal: Degenerate Disk Disease, Arthritis, Chronic Back Pain Psychosocial: Anxiety History of Blood Disorders: No Family History Patient reports no known family medical history. No Pertinent Family Hx Review of Systems Constitutional: see HPI EENTM: no symptoms reported, other (left facial numbness) Respiratory: no symptoms reported Cardiovascular: chest pain Gastrointestinal: other (belching) Genitourinary: no symptoms reported Musculoskeletal: back pain Skin: no symptoms reported Psychiatric/Neurological: No Symptoms Reported Physical Exam Physical Exam Vital Signs Vital Signs - First Documented 07/04/19 07/04/19 07/04/19 08:01 08:53 14:31 Temp 36.4 Pulse 65 Resp 18 B/P (MAP) 216/119 (151) Pulse Ox 92 O2 Delivery Room Air O2 Flow Rate 2.00 FiO2 21 Capillary Refill : Less Than 3 Seconds Height, Weight, BMI Height: 5'7.00" Weight: 123lbs. 2.0oz. 55.359276lh; 18.45 BMI Method:Stated General Appearance: Chronically ill HEENT: Other (Dick's palsy) Neck: Limited Range of Motion Respiratory: Chest Non Tender, Lungs Clear, Normal Breath Sounds, No Accessory Muscle Use, No Respiratory Distress Cardiovascular: Regular Rate, Rhythm, No Gallop, Normal Peripheral Pulses, Systolic Murmur Gastrointestinal: Normal Bowel Sounds, No Organomegaly, Non Tender, Soft Extremity: Normal Capillary Refill, Non Tender, No Calf Tenderness, No Pedal Edema Neurologic/Psychiatric: Alert, Oriented x3, Normal Mood/Affect Results Results/Procedures Labs Laboratory Tests 07/04/19 08:21 07/04/19 16:53 Patient resulted labs reviewed. Assessment/Plan Admission Diagnosis chest pain History of atrial fibrillation- severe hypertension Osteoporosis Scoliosis Remote history of tobaccoism Positive troponin Plan for observation cardiology consult and blood pressure control Admission Status: Observation Clinical Quality Measures AMI/AHF: ASA po Prior to arrival: Yes (81MG X2) DVT/VTE Risk/Contraindication: Risk Factor Score Per Nursin RFS Level Per Nursing on Admit: 4+=Very High RATNA GALLEGOS MD Jul 04, 2019 15:03
[2019-07-04 16:17] VITALS: BP 143/73
--- NOTE | 2019-07-04 16:30 | Consultation-Cardiology ---
HPI-Cardiology Cardiology Consultation: Date of Consultation 07/04/19 Date of Admission Attending Physician Ratna Resendiz MD Admitting Physician No,Local Physician Consulting Physician Adeel KHALIL MD HPI: Time Seen by a Provider: 15:00 Chief Complaint: Chest pain This is a 84-year-old lady who presents to the ER with complains of chest tightness. She follows with Dr. Kaplan as an outpatient. She had coronary angiography in January 2019 which did not show any significant severe obstructive coronary disease. Her chest discomfort started at around 630 in the morning. Feels like heaviness and pressure. No significant radiation. Substernal. Moderate intensity. No associated cardiac symptoms. She has history of paroxysmal atrial fibrillation and is on Eliquis. She was also found to be significantly hypertensive. She had not taken her morning medications. Her systolic blood pressure was 216 mmHg. She was given her lisinopril and metoprolol which improved her blood pressure to systolic of 160 mmHg. When I saw the patient her chest pain was significantly improved. Review of Systems-Cardiology Review of Systems Constitutional: As described under HPI; No As described under HPI, No no symptoms reported, No chills, No fever, No lightheadedness Eyes: No As described under HPI, No no symptoms reported, No blindness, No blurred vision, No contact lenses, No drainage, No decreased acuity, No foreign body sensation, No pain, No vision change Ears/Nose/Throat: No As described under HPI, No no symptoms reported, No chronic hearing loss, No ear discharge, No ear pain, No nasal drainage, No ulcerations Respiratory: No no symptoms reported; As described under HPI; No As described under HPI, No cough, No orthopnea, No shortness of breath, No SOB with excertion Cardiovascular: No no symptoms reported; As described under HPI; No As desc ribed under HPI; chest pain; No edema, No irregular heart rate, No lightheadedness, No palpitations Gastrointestinal: No no symptoms reported, No As described under HPI, No abdomen distended, No abdominal pain, No blood streaked bowels, No constipation, No diarrhea, No nausea, No vomiting, No stool coloration changes Genitourinary: No As described under HPI, No burning, No dysuria, No discharge, No frequency, No flank pain, No hematuria, No urgency : Yes : No Skin: No rash, No skin related problems, No ulcerations Psychiatric/Neurological: No anxiety, No depression, No seizure, No focal weakness, No syncope Hematologic: No bleeding abnormalities [id number]-[id number] Hx Patient Social History Marrital Status: Employed/Student: retired Alcohol Use: Denies Use Recreational Drug Use: No Smoking Status: Former Smoker Type Used: Cigarettes Recent Foreign Travel: No Recent Infectious Disease Expo: No Hospitalization with Isolation: Denies Immunizations Up To Date Tetanus Booster (TDap): Less than 5yrs Date of Pneumonia Vaccine: Feb 20, 2016 Date of Influenza Vaccine: Jun 10, 2019 Past Medical History PMH As described under Assessment. Family Medical History Family History: Patient reports no known family medical history. Allergies and Home Medications Allergies Coded Allergies: Sulfa (Sulfonamide Antibiotics) (Verified Allergy, Unknown, 07/04/19) Home Medications Amlodipine Besylate 5 Mg Tablet, 5 MG PO DAILY Prescribed by: KING RUSH on 07/04/19 1125 Apixaban 2.5 Mg Tablet, 2.5 MG PO BID Prescribed by: ESTRELLA KAPLAN on 01/21/19 1013 Aspirin 81 Mg Tablet.dr, 81 MG PO HS, (Reported) Carbidopa/Levodopa 1 Each Tablet, 2 TAB PO TID, (Reported) Cholecalciferol (Vitamin D3) 2,000 Unit Capsule, 2,000 UNIT PO DAILY, (Reported) Diazepam 10 Mg Tablet, 10 MG PO HS PRN for ANXIETY, (Reported) Diclofenac Sodium 50 Mg Tablet.dr, 50 MG PO BID, (Reported) LAST FILLED 11-06-2018 Docusate Sodium 100 Mg Capsule, 200 MG PO DAILY PRN for CONSTIPATION-1ST LINE, (Reported) TAKES 2 (100 MG) CAPSULES Hydrocodone/Acetaminophen 1 Each Tablet, 1 TAB PO Q8H PRN for PAIN-MODERATE, (Reported) Lisinopril 10 Mg Tablet, 10 MG PO DAILY Prescribed by: ESTRELLA KAPLAN on 01/21/19 1013 Lovastatin 10 Mg Tablet, 10 MG PO HS, (Reported) Metoprolol Succinate 50 Mg Tab.er.24h, 25 MG PO DAILY Prescribed by: OLIVA MOON on 07/04/19 1412 Multivitamin 1 Each Tablet, 1 TAB PO DAILY, (Reported) Ropinirole HCl 1 Mg Tablet, 1 MG PO TID, (Reported) Tramadol HCl 50 Mg Tablet, 50 MG PO Q6H PRN for PAIN-MODERATE, (Reported) Patient Home Medication List Home Medication List Reviewed: Yes Physical Exam-Cardiology Physical Exam Vital Signs/I&O 07/04/19 07/04/19 07/04/19 07/04/19 08:01 08:53 09:09 11:52 Temp 36.4 Pulse 65 66 Resp 18 18 B/P (MAP) 216/119 (151) 160/100 (120) Pulse Ox 92 88 97 95 O2 Delivery Room Air Room Air Room Air Room Air O2 Flow Rate 2.00 07/04/19 07/04/19 07/04/19 07/04/19 12:35 13:22 14:31 14:33 Temp 36.5 Pulse 70 76 76 69 Resp 18 18 20 B/P (MAP) 181/90 (120) 173/98 177/84 Pulse Ox 94 93 94 96 O2 Delivery Room Air Nasal Cannula Room Air FiO2 21 07/04/19 16:17 Temp 36.8 Pulse 66 Resp 14 B/P (MAP) 143/73 (96) Pulse Ox 92 O2 Delivery Room Air Capillary Refill : Less Than 3 Seconds Constitutional: appears stated age, AAO x 3; No apparent distress; well- developed, well-nourished HEENT: PERRL; No discharge; hearing is well preserved, oral hygience is good; No ulceration, No xanthelasmas are seen Neck: No carotid bruit; carotid pulses are 2 + bilaterally Respiratory: chest is bilaterally symmetric, lungs clear to auscultation Cardiovascular: regular rate-rhythm, S1 and S2 Gastrointestinal: soft, audible bowel sounds; No spleenomegaly Rectal: deferred Extremities: normal range of motion, non-tender, normal inspection; No clubbing, No cyanosis; no lower extremity edema bilateral; No significant edema Neurologic/Psychiatric: no motor/sensory deficits, alert, normal mood/affect, oriented x 3, power is 5/5 both on sides Skin: normal color, warm/dry; No rash, No ulcerations Data Review Labs Laboratory Tests 07/04/19 08:21: White Blood Count 8.5, Red Blood Count 5.29, Hemoglobin 14.6, Hematocrit 47, Mean Corpuscular Volume 90, Mean Corpuscular Hemoglobin 28, Mean Corpuscular Hemoglobin Concent 31L, Red Cell Distribution Width 16.2H, Platelet Count 252, Mean Platelet Volume 10.8H, Neutrophils (%) (Auto) 58, Lymphocytes (%) (Auto) 27, Monocytes (%) (Auto) 13H, Eosinophils (%) (Auto) 2, Basophils (%) (Auto) 1, Neutrophils # (Auto) 4.9, Lymphocytes # (Auto) 2.3, Monocytes # (Auto) 1.1H, Eosinophils # (Auto) 0.2, Basophils # (Auto) 0.0, Prothrombin Time 12.9, INR Comment 0.9, Activated Partial Thromboplast Time 28, Sodium Level 141, Potassium Level 3.7, Chloride Level 105, Carbon Dioxide Level 25, Anion Gap 11, Blood Urea Nitrogen 16, Creatinine 0.79, Estimat Glomerular Filtration Rate > 60, BUN/Creatinine Ratio 20, Glucose Level 82, Calcium Level 9.4, Corrected Calcium 9.1, Magnesium Level 2.0, Total Bilirubin 0.5, Aspartate Amino Transf (AST/SGOT) 20, Alanine Aminotransferase (ALT/SGPT) 15, Alkaline Phosphatase 97, Myoglobin 45.5, Troponin I < 0.028, B-Type Natriuretic Peptide 244.4H, Total Protein 7.6, Albumin 4.4, TSH [place] Testing 0.76 07/04/19 10:40: Troponin I 0.921*H ECG Impression ECG Initial ECG Rhythm: Normal Sinus Comment T-wave inversions noted in leads V1 and V2 A/P-Cardiology Assessment/Admission Diagnosis Chest pain, positive cardiac enzymes, working diagnosis is non-STEMI, Mild acute congestive heart failure, Severe hypertension, Paroxysmal atrial fibrillation, currently in sinus rhythm Plan Non-STEMI, dose of Lovenox. Aspirin. Echocardiogram. Continue serial troponin. I will review coronary angiography done in January 2019. Severe hypertension, continue metoprolol and lisinopril. Add amlodipine 5 mg daily. Paroxysmal atrial fibrillation, currently in sinus rhythm. Continue metoprolol and Eliquis. Mild hypoxia in the ER. Will defer to the primary team for further evaluation. Could be secondary to mild acute congestive heart failure due to severe hypertension. Mildly elevated BNP. Check echocardiogram. Thank you for your consultation. Please call me if you have any questions. Shavonne Khalil MD, FACP, FACC, FSCAI, FHRS, CCDS Interventional Cardiology Cardiac Electrophysiology Vascular Medicine and Endovascular Interventions Clinical Quality Measures AMI/AHF: ASA po Prior to arrival: Yes (81MG X2) DVT/VTE Risk/Contraindication: Risk Factor Score Per Nursin RFS Level Per Nursing on Admit: 4+=Very High Adeel KHALIL MD Jul 04, 2019 16:30
[2019-07-04] MEDS: SINEMET 25/100 (CARBIDOPA/LEVODOPA) TAB PO SCH (17:38)
[2019-07-04] MEDS ORDERED: IOHEXOL 350 MG/ML 100 ML (OMNIPAQUE 350) VIAL IV ONE (17:45)
[2019-07-04] MEDS ORDERED: HOLD METFORMIN - RECEIVED CONTRAST 20 ML VIAL IV SCH (17:45)
[2019-07-04] MEDS ORDERED: NS 100 ML (IVPB) BAG IV ONE (17:45)
--- NOTE | 2019-07-04 18:23 | Diagnostic Imaging Report ---
PROCEDURE: CT angiography of the chest with and without contrast. TECHNIQUE: Noncontrast CT of the chest was performed. Subsequently, after intravenous administration of contrast, thin section axial CT angiography of the chest was performed. 3D MIP reconstructions were made. Auto Exposure Controls were utilized during the CT exam to meet ALARA standards for radiation dose reduction. INDICATION: Chest pain. COMPARISON: Chest radiograph 07/04/2019. FINDINGS: Contrast timing evaluates the thoracic aorta well, however, there is minimal contrast in the pulmonary arteries. No thoracic aortic aneurysm or dissection. No large central pulmonary emboli are seen. The pulmonary arteries are prominent in caliber. Moderate atherosclerotic calcifications. The celiac axis, SMA and renal arteries are included on the exam and demonstrate no high-grade narrowing. Cardiomegaly. No pericardial effusion. No mediastinal, hilar or axillary lymphadenopathy. Moderate to advanced centrilobular emphysematous changes in the lungs. No focal consolidation. No pleural effusion or pneumothorax. No endobronchial lesions. Advanced spondylotic changes in the spine. Compression deformity of T11 results in approximate 30% height loss and is age indeterminate. Compression fracture of L1 has been treated with vertebroplasty. Left TSA is partially visualized. IMPRESSION: 1. No thoracic aortic aneurysm or dissection. 2. The pulmonary arteries are not well evaluated due to contrast timing. There is no large central pulmonary artery filling defect. The pulmonary arteries are prominent in caliber likely representing a degree of pulmonary arterial hypertension. 3. Moderate to advanced centrilobular emphysematous changes in the lungs. 4. Compression fracture of T11 results in approximately 30% height loss and is age indeterminate. This could be further characterized with dedicated MRI if clinically warranted. Dictated by: Dictated on workstation # [id number]
[2019-07-04] MEDS ORDERED: ENOXAPARIN 60 MG/0.6 ML (LOVENOX) SYR SC ONE (18:45)
[2019-07-04] MEDS ORDERED: CLOPIDOGREL 300 MG (PLAVIX) TABLET PO ONE ×2 (18:45→20:59)
[2019-07-04 20:00] VITALS: BP 121/72
[2019-07-04] MEDS ORDERED: ASPIRIN E.C. 81 MG (ECOTRIN) TAB PO SCH (21:00)
[2019-07-04] MEDS ORDERED: NON-FORMULARY MEDICATION 1 EA EA (Lovastatin 10 MG) PO SCH (21:00)
[2019-07-04] MEDS ORDERED: APIXABAN 2.5 MG (ELIQUIS) TABLET PO SCH ×2 (21:00)
[2019-07-04] MEDS: SIMvastatin 10 MG (ZOCOR) TAB PO SCH (21:06)
[2019-07-04] MEDS: rOPINIRole 1 MG (REQUIP) TABLET PO SCH (21:06)
[2019-07-04] MEDS: DIAZEPAM 5 MG (VALIUM) TABLET PO PRN (22:21)
[2019-07-05] VITALS (21 sets, daily range): BP systolic 105–182; BP diastolic 64–102
[2019-07-05] MEDS: CATHETER FLUSH 10 ML SYR IV SCH ×3 (06:25→20:22)
[2019-07-05] MEDS: SINEMET 25/100 (CARBIDOPA/LEVODOPA) TAB PO SCH ×3 (06:26→16:58)
[2019-07-05] MEDS ORDERED: ASPIRIN E.C. 81 MG (ECOTRIN) TAB PO SCH (09:00)
[2019-07-05] MEDS: rOPINIRole 1 MG (REQUIP) TABLET PO SCH ×3 (10:23→20:20)
[2019-07-05] MEDS: PANTOPRAZOLE 40 MG (PROTONIX) TAB PO SCH (12:19)
[2019-07-05] MEDS: meTOproloL SUCCINATE 50 MG (TOPROL XL) TAB PO SCH (12:19)
[2019-07-05] MEDS: amLODIPine 5 MG (NORVASC) TAB PO SCH (12:20)
[2019-07-05] MEDS: lisINopril 10 MG (PRINIVIL) TABLET PO SCH (12:20)
--- NOTE | 2019-07-05 12:47 | Progress Note - Hospitalist ---
Subjective HPI/CC On Admission Date Seen by Provider: Jul 05, 2019 Time Seen by Provider: 12:15 this is an 84-year-old white female well known to me with a past history of atrial fibrillation. She awakened this morning with midsternal chest pain without radiation without nausea without diaphoresis that felt like a rock on her chest. She was somewhat hypoxic and very hypertensive when she presented to the emergency room where troponin became positive on the second dose. She had had a heart catheter over the summer with tortuous but non-obstructing coronary artery disease. Her case has been discussed with who feels like observation blood pressure control and review of her heart catheter is in order. Subjective/Events-last exam patient has had no further chest pain. Blood pressure remains elevated but the patient is nothing by mouth for heart catheter. She is hungry. Objective Exam Vital Signs Vital Signs Date Time Temp Pulse Resp B/P (MAP) Pulse Ox O2 Delivery O2 Flow Rate FiO2 07/05/19 12:00 37.0 75 18 145/98 (114) 96 Room Air 07/05/19 08:00 2.00 07/04/19 14:31 21 Capillary Refill : Less Than 3 Seconds General Appearance: No Apparent Distress, Chronically ill HEENT: Other (Dick's palsy) Neck: Limited Range of Motion Respiratory: Normal Breath Sounds, No Accessory Muscle Use, No Respiratory Distress, Decreased Breath Sounds Cardiovascular: Systolic Murmur, Irregularly Irregular Gastrointestinal: Normal Bowel Sounds, Soft Extremity: No Pedal Edema Results/Procedures Lab Laboratory Tests 07/04/19 16:53 Patient resulted labs reviewed. Assessment/Plan Assessment and Plan Assess & Plan/Chief Complaint chest pain with non-ST segment elevation CT-heart catheter today History of atrial fibrillation-good rate control severe hypertension-CT chest unremarkable Osteoporosis Scoliosis Remote history of tobaccoism hypoxia-CT chest shows emphysema and will require further evaluation for possible need for home O2 at at bedtime-consider consult pulmonary Clinical Quality Measures AMI/AHF: ASA po Prior to arrival: Yes (81MG X2) DVT/VTE Risk/Contraindication: Risk Factor Score Per Nursin RFS Level Per Nursing on Admit: 4+=Very High NAPOLEON GALLEGOS MD Jul 05, 2019 12:47
[2019-07-05] MEDS ORDERED: HEParin 1000 UNIT/ML (10ML VIAL) FOR BOLUS ONE (13:07)
[2019-07-05] MEDS ORDERED: NS IV 1000 ML 1,000 ML ONE (13:07)
[2019-07-05] MEDS ORDERED: LIDOCAINE 1% INJ 20 ML 20 ML VIAL ONE (13:07)
[2019-07-05] MEDS ORDERED: HEParin (CATH LAB) 2,000 ML IV ONE (13:08)
[2019-07-05] MEDS ORDERED: fentaNYL INJECTION 100 MCG/2 ML AMP ONE (13:09)
[2019-07-05] MEDS ORDERED: MIDAZOLAM 5 MG/5 ML (VERSED) VIAL ONE (13:09)
--- NOTE | 2019-07-05 13:58 | Cardiology Progress Note ---
Cardiology SOAP Progress Note Subjective: No further chest pain. Objective: I&O/Vital Signs 07/05/19 07/05/19 07/05/19 07/05/19 04:00 07:00 08:00 08:00 Temp 36.2 37.1 Pulse 55 57 73 Resp 18 20 B/P (MAP) 163/81 (108) 182/86 (118) Pulse Ox 94 90 95 O2 Delivery Room Air Room Air Room Air O2 Flow Rate 2.00 07/05/19 07/05/19 07/05/19 08:20 12:00 13:00 Temp 37.0 Pulse 75 71 Resp 18 B/P (MAP) 145/98 (114) Pulse Ox 90 96 O2 Delivery Room Air Room Air 07/04/19 23:59 Intake Total 760 ml Output Total 400 ml Balance 360 ml Weight (Pounds): 123 Weight (Ounces): 2.0 Weight (Calculated Kilograms): [id number] Constitutional: appears stated age, AAO x 3; No apparent distress; well- developed, well-nourished Respiratory: chest is bilaterally symmetric, lungs clear to auscultation Cardiovascular: regular rate-rhythm, S1 and S2 Gastrointestional: soft, audible bowel sounds; No spleenomegaly Extremities: normal range of motion, non-tender, normal inspection; No clubbi ng, No cyanosis; no lower extremity edema bilateral; No significant edema Neurologic/Psychiatric: no motor/sensory deficits, alert, normal mood/affect, oriented x 3, power is 5/5 both on sides Skin: normal color, warm/dry; No rash, No ulcerations Results/Procedures: Labs Laboratory Tests 07/04/19 16:53: Creatinine 0.80, Troponin I 6.081*H A/P: Assessment/Dx: Chest pain, positive cardiac enzymes, working diagnosis is non-STEMI, Mild acute congestive heart failure, Severe hypertension, Paroxysmal atrial fibrillation, currently in sinus rhythm Plan: Non-STEMI, dose of Lovenox. Aspirin. Plavix. Significant elevation of troponin to 6.0. Urgent CT angiography of the chest did not reveal aortic dissection or central pulmonary embolism. Medical necessity: Severe hypertension with chest pain. Once CTA was negative, we gave the patient Lovenox, Plavix, aspirin. Coronary angiography is recommended. I did review the coronary angiography done in January [address] Kaplan. It shows signific antly tortuous arteries with no focal CAD. Unclear reason for non-STEMI. I spoke at length to the patient. Informed consent was taken. 1-2 percent of major complication was discussed. Patient accepted the complication rate and wanted to proceed with the procedure. Echocardiogram done 07/04/2019 showed normal LV function, moderate to severe concentric LVH with hypertensive heart disease. Diastolic dysfunction. Elevated PA pressure. Severe hypertension, continue metoprolol and lisinopril. amlodipine 5 mg daily. Paroxysmal atrial fibrillation, currently in sinus rhythm. Continue metoprolol and Eliquis 2.5 mg twice a day. Plavix was held for coronary angiography. Mild hypoxia in the ER. Will defer to the primary team for further evaluation. Could be secondary to mild acute congestive heart failure due to severe hypertension. Mildly elevated BNP. Contribution from mild acute diastolic congestive heart failure. Thank you for your consultation. Please call me if you have any questions. Shavonne Khalil MD, FACP, FACC, FSCAI, FHRS, CCDS Interventional Cardiology Cardiac Electrophysiology Vascular Medicine and Endovascular Interventions Clinical Quality Measures AMI/AHF: ASA po Prior to arrival: Yes (81MG X2) Adeel KHALIL MD Jul 05, 2019 13:57
[2019-07-05] MEDS: NS IV 1000 ML 1,000 ML IV SCH ×2 (14:35→20:22)
--- NOTE | 2019-07-05 14:35 | Cardiac Procedure Note-CS/ASA ---
Pre-Procedure Note Pre-Op Procedure Note H&P Reviewed The H&P was reviewed, patient examined and no changes noted. Date H&P Reviewed: Jul 05, 2019 Time H&P Reviewed: 13:30 Conscious Sedation Pre-Proced Time 13:30 ASA Score 3 For ASA 3 and 4: Consider anesthesia and medical clearance. Also, for patients with a history of failed moderate sedation consider anesthesia. Airway Lungs Heart ASA score ASA 1: a normal healthy patient ASA 2: a patient with a mild systemic disease (mid diabetes, controlled hypertension, obesity ASA 3: a patient with a severe systemic disease that limits activity (angina, COPD, prior Myocardial infarction) ASA 4: a patient with an incapacitating disease that is a constant threat to life (CHF, renal failure) ASA 5: a moribund patient not expected to survive 24 hrs. (ruptured aneurysm) ASA 6: a declared brain- patient whose organs are being harvested. For emergent operations, add the letter E after the classification Mallampati Classification Grade 1 Sedation Plan Analgesia, Amnesia, Plan communicated to team members, Discussed options with patient/fam, Discussed risks with patient/fam The patient is an appropriate candidate to undergo the planned procedure, sedation, and anesthesia. The patient immediately re-assessed prior to indication. Adeel MCNEIL MD Jul 05, 2019 14:35
--- NOTE | 2019-07-05 14:35 | Coronary Angiography Report ---
Coronary Angiography Report DATE OF PROCEDURE: 07/05/19 INDICATION: Non-STEMI, severe hypertension. PREOPERATIVE DIAGNOSIS: Non-STEMI, severe hypertension. POSTOPERATIVE DIAGNOSIS: Mild nonobstructive CAD. HISTORY: This is a 84-year-old lady with history of hypertension and atrial fibrillation. She is on Eliquis 2.5 mg twice a day which is the appropriate dose for her since she is over 82 years of age and weight is less than 60 kg. she presents with severe chest pain and systolic blood pressure of 216 mmHg. Troponin trend to maximum of 6.0. Therefore, the patient was scheduled for coronary angiography. PROCEDURES PERFORMED: 1.Coronary angiography. 2.Left heart catheterization. 3. Aortic arch angiogram: Medical necessity: Severe systolic hypertension and chest pain, rule out aortic dissection. COMPLICATIONS: None. SPECIMENS: None. ESTIMATED BLOOD LOSS: 10 mL ANESTHESIA: Conscious sedation ANTICOAGULATION: IV heparin CONTRAST: 70 mL. FLUOROSCOPY: FLOUROSCOPY DOSE: 205 mgy. PROCEDURE DETAILS: The patient is a 84 female and was brought to the brine room laborer after informed consent was taken. All the risks and complications were explained in detail; this included the risk of bleeding, vascular damage, stroke, [place] and even . The patient was draped and prepped in the usual sterile fashion. Access was gained in the right femoral artery with a 5 [place] sheath. Coronary angiography, left heart catheterization and aortic arch angiogram was done with a JR4, JL4 and pigtail catheter. FINDINGS: 1.Left main: Patent. 2.LAD: Significantly tortuous artery with no focal stenosis. 3.Left circumflex artery: Tortuous artery with no stenosis. 4.RCA: Patent artery with luminal irregularities. 5.Left heart catheterization: LV pressure 98/4 mmHg. LVEDP 9 mmHg. Aortic pressure 103/64 mmHg. Normal LV function with no wall motion abnormalities. No gradient across the aortic valve. 6. Aortic arch angiogram: Medical necessity: Severe systolic hypertension and chest pain. No evidence of aneurysm or aortic dissection. Patent proximal segments of the great arteries. CONCLUSIONS: Mild nonobstructive CAD. Type II myocardial infarction likely due to severe hypertension. Aggressive blood pressure management. Shavonne Khalil MD, FACP, FACC, [facility] Interventional Cardiology Adeel KHALIL MD Jul 05, 2019 14:35
[2019-07-05] MEDS ORDERED: PATIENT MAY USE OWN MEDS, ALL PO SCH (14:45)
--- NOTE | 2019-07-05 18:49 | NUR ---
patient back to floor at this time via cart accompanied by destiny tran.
[2019-07-05] MEDS: APIXABAN 2.5 MG (ELIQUIS) TABLET PO SCH (20:20)
[2019-07-05] MEDS: DIAZEPAM 5 MG (VALIUM) TABLET PO PRN (20:20)
[2019-07-05] MEDS: SIMvastatin 10 MG (ZOCOR) TAB PO SCH (20:20)
[2019-07-06] VITALS: BP 110/53
[2019-07-06 04:25] LABS: HEMOGLOBIN 12.6 G/DL (11.5-16.0); MEAN PLATELET VOLUME 10.4 FL (7.4-10.4); RED CELL DISTRIBUTION WIDTH 16.1 % (10.0-14.5); WHITE BLOOD COUNT 7.2 10^3/uL (4.3-11.0)
[2019-07-06 04:39] VITALS: BP 121/68
[2019-07-06 04:40] LABS: BUN/CREATININE RATIO 21; CALCIUM 8.6 MG/DL (8.5-10.1); CARBON DIOXIDE 26 MMOL/L (21-32); CHLORIDE 105 MMOL/L (98-107); CREATININE SERUM 0.75 MG/DL (0.60-1.30); GFR ESTIMATED > 60; GLUCOSE 102 MG/DL (70-105); POTASSIUM 3.8 MMOL/L (3.6-5.0); SODIUM 141 MMOL/L (135-145)
[2019-07-06] MEDS: CATHETER FLUSH 10 ML SYR IV SCH (05:09)
[2019-07-06] MEDS: SINEMET 25/100 (CARBIDOPA/LEVODOPA) TAB PO SCH ×2 (05:09→12:04)
[2019-07-06 08:00] VITALS: BP 125/77
[2019-07-06] MEDS: lisINopril 10 MG (PRINIVIL) TABLET PO SCH (09:02)
[2019-07-06] MEDS: PANTOPRAZOLE 40 MG (PROTONIX) TAB PO SCH (09:02)
[2019-07-06] MEDS: meTOproloL SUCCINATE 50 MG (TOPROL XL) TAB PO SCH (09:02)
[2019-07-06] MEDS: rOPINIRole 1 MG (REQUIP) TABLET PO SCH ×2 (09:02→12:04)
[2019-07-06] MEDS: APIXABAN 2.5 MG (ELIQUIS) TABLET PO SCH (09:03)
[2019-07-06] MEDS: amLODIPine 5 MG (NORVASC) TAB PO SCH (09:03)
--- NOTE | 2019-07-06 09:18 | Cardiology Progress Note ---
Subjective Date Seen by Provider: Jul 06, 2019 Time Seen by Provider: 09:16 Subjective/Events-last exam Patient is sitting in bed, feeling well, reporting improvement in her symptoms. Going home today Review of Systems General: No Chills, No Night Sweats, No Fatigue, No Malaise, No Appetite, No Other HEENT: No Head Aches, No Visual Changes, No Eye Pain, No Ear Pain, No Dysphasia, No Sinus Congestion, No Post Nasal Drip, No Sore Throat, No Other Pulmonary: No Dyspnea, No Cough, No Pleuritic Chest Pain, No Other Cardiovascular: No: Chest Pain, Palpitations, Orthopnea, Paroxysmal Noc. Dyspnea, Edema, Lt Headedness, Other Objective-Cardiology Exam Last Set of Vital Signs Vital Signs 07/04/19 07/06/19 14:31 08:00 Temp 36.4 Pulse 64 Resp 18 B/P (MAP) 125/77 (93) Pulse Ox 82 O2 Delivery Room Air O2 Flow Rate 2.00 FiO2 21 Capillary Refill : Less Than 3 Seconds I&O Intake and Output 07/06/19 00:00 Intake Total 1165 ml Output Total 1500 ml Balance -335 ml Intake Oral 1165 ml Output Urine Total 1500 ml General: Alert, Oriented X3, Cooperative HEENT: Atraumatic, PERRLA Neck: Supple, No JVD, No Thyromegaly Lungs: Clear to Auscultation, Normal Air Movement Heart: Regular Rate, Normal S1, Normal S2, No Murmurs Abdomen: Normal Bowel Sounds, Soft, No Tenderness, No Hepatosplenomegaly, No Masses Extremities: No Clubbing, No Cyanosis, No Edema, Normal Pulses, No Tenderness/Swelling Skin: No Rashes, No Breakdown, No Significant Lesion Neuro: Normal Gait, Normal Speech, Strength at 5/5 X4 Ext, Normal Tone, Sensation Intact Psych/Mental Status: Mental Status NL, Mood NL Results Lab Laboratory Tests 07/06/19 04:10 A/P-Cardiology Admission Diagnosis Non-ST elevation myocardial infarction Coronary artery disease Hypertension Paroxysmal atrial fibrillation Assessment/Plan Non-STEMI, cardiac catheterization was carried out by Dr. Khalil, no intervention, no change compared to the cardiac catheterization finding in January 2019 which showed significantly tortuous coronary system with no significant obstructive disease, small vessel disease. Type II [place], elevated troponin is probably due to hypertension and small vessel disease. Medical therapy is recommended Echocardiogram done 07/04/2019 showed normal LV function, moderate to severe concentric LVH with hypertensive heart disease. Diastolic dysfunction. Elevated PA pressure. Severe hypertension, better control at this time, I instructed her on monitoring her blood pressure at home and reported to me on her next appointment in 2 weeks Paroxysmal atrial fibrillation, currently in sinus rhythm. Continue metoprolol and Eliquis 2.5 mg twice a day. Plavix was held for coronary angiography. Clinical Quality Measures AMI/AHF: ASA po Prior to arrival: Yes (81MG X2) DVT/VTE Risk/Contraindication: Risk Factor Score Per Nursin RFS Level Per Nursing on Admit: 4+=Very High ESTRELLA GRECO MD Jul 06, 2019 09:18
[2019-07-06] MEDS: NS IV 1000 ML 1,000 ML IV SCH (11:14)
[2019-07-06 12:00] VITALS: BP 126/76
--- NOTE | 2019-07-06 12:08 | Discharge Summary ---
Diagnosis/Chief Complaint Date of Admission Jul 04, 2019 at 12:35 Date of Discharge 07/06/2019 Admission Diagnosis Admission Diagnosis NSTEMI Chronic A Fib HTN Osteoporosis hypoxia Discharge Diagnosis See Above Discharge Summary-Simple/Stand Procedures Cardiac Cath: No intervention Echo: Severe LVH, normal EF, Diastolic Dysfunction Consultations Khalid: Cardiology Discharge Physical Examination Allergies: Coded Allergies: Sulfa (Sulfonamide Antibiotics) (Verified Allergy, Unknown, 07/04/19) Vitals & I&Os Vital Sign - Last 12Hours Date Time Temp Pulse Resp B/P (MAP) Pulse Ox O2 Delivery O2 Flow Rate FiO2 07/06/19 09:31 94 Room Air 07/06/19 08:00 2.00 07/06/19 08:00 36.4 64 18 125/77 (93) 07/04/19 14:31 21 Intake and Output 07/06/19 00:00 Intake Total 1165 ml Output Total 1000 ml Balance 165 ml General Appearance: Alert, Oriented X3, Cooperative, No Acute Distress HEENT: Mucous Memb Moist/[place] Respiratory: Clear to Auscultation, Normal Air Movement Cardiovascular: Regular Rate, No Murmurs Abdominal: Normal Bowel Sounds, Soft, No Tenderness, No Masses Extremities: No Edema, No Tenderness/Swelling Skin: No Rashes, No Breakdown Neuro: Normal Speech, Strength at 5/5 X4 Ext, Sensation Intact, Cranial Nerves 3-12 NL Psych/Mental Status: Mental Status NL, Mood NL Hospital Course Was the Problem List Reviewed?: Yes See final discharge diagnosis. Discussion & Recommendations 84 yo F that presented with chest pain found to have elevated troponin and was taken to director of cardiac cath lab. Cath was normal. Patient's blood pressure was severely elevated and likely cause of elevated troponin. Blood pressure better controlled at time of discharge. Patient was started on anticoagulation. Will have close f.u with cardiology and PCP Discharge Condition at discharge stable Instructions to patient/family Please see electronic discharge instructions given to patient. Discharge Medications Reviewed and agree with Discharge Medication list on patient's Discharge Instruction sheet Clinical Quality Measures AMI/AHF: ASA po Prior to arrival: Yes (81MG X2) DVT/VTE Risk/Contraindication: Risk Factor Score Per Nursin RFS Level Per Nursing on Admit: 4+=Very High JOSHUA CARD MD Jul 06, 2019 12:08
--- NOTE | 2019-07-06 12:11 | Discharge Instructions ---
Discharge [facility] Reconcile Patient Problems Problems Reviewed?: Yes Discharge Medications New, Converted or Re-Newed RX: Transmitted to Pharmacy Continued Medications: Amlodipine Besylate (Amlodipine Besylate) 5 Mg Tablet 5 MG PO DAILY, #30 TAB Apixaban (Eliquis) 2.5 Mg Tablet 2.5 MG PO BID, #60 TAB 3 Refills Aspirin (Aspir 81) 81 Mg Tablet.dr 81 MG PO HS, TAB Carbidopa/Levodopa (Carbidopa-Levodopa 25-100 Tab) 1 Each Tablet 2 TAB PO TID Cholecalciferol (Vitamin D3) (Vitamin D3) 2,000 Unit Capsule 2000 UNIT PO DAILY, CAP Diazepam (Diazepam) 10 Mg Tablet 10 MG PO HS PRN for ANXIETY, TAB Diclofenac Sodium (Diclofenac Sodium) 50 Mg Tablet.dr 50 MG PO BID, TAB LAST FILLED 11-06-2018 Docusate Sodium (Docusate Sodium) 100 Mg Capsule 200 MG PO DAILY PRN for CONSTIPATION-1ST LINE, CAP TAKES 2 (100 MG) CAPSULES Hydrocodone/Acetaminophen (Hydrocodone-Acetamin 5-325 mg) 1 Each Tablet 1 TAB PO Q8H PRN for PAIN-MODERATE Lisinopril (Lisinopril) 10 Mg Tablet 10 MG PO DAILY, #30 TAB 4 Refills Lovastatin (Lovastatin) 10 Mg Tablet 10 MG PO HS Metoprolol Succinate (Metoprolol Succinate) 50 Mg Tab.er.24h 25 MG PO DAILY, #30 TAB 4 Refills Multivitamin (Multivitamins) 1 Each Tablet 1 TAB PO DAILY, TAB Ropinirole HCl (Ropinirole HCl) 1 Mg Tablet 1 MG PO TID Tramadol HCl (Tramadol HCl) 50 Mg Tablet 50 MG PO Q6H PRN for PAIN-MODERATE, TAB Patient Instructions Goal/Follow Up Appt: Follow up with Dr Khalil Activity & Diet Discharge Diet: Cardiac Diet Activity as Tolerated: Yes JOSHUA CARD MD Jul 06, 2019 12:11
[2019-07-06 13:00] VITALS: BP 126/76
== END 2019-07-06 13:25 | disposition home or self-care (01) | DRG 280 ==
LOC: EDUNIT# 08:01 → ER 08:03 → 4TH 12:35
PROVIDERS: ADMIT Internal Medicine; ATTEND Internal Medicine
PROC: 4A023N7 Measurement of Cardiac Sampling and Pressure, Left Heart, Percutaneous Approach (ICD-10-PCS; principal; 2019-07-05)
PROC: B2111ZZ Fluoroscopy of Multiple Coronary Arteries using Low Osmolar Contrast (ICD-10-PCS; 2019-07-05)
PROC: B3101ZZ Fluoroscopy of Thoracic Aorta using Low Osmolar Contrast (ICD-10-PCS; 2019-07-05)
DX: I11.0 Hypertensive heart disease with heart failure (principal); I21.A1 Myocardial infarction type 2; I50.31 Acute diastolic (congestive) heart failure; I25.10 Atherosclerotic heart disease of native coronary artery without angina pectoris; I48.0 Paroxysmal atrial fibrillation; J43.9 Emphysema, unspecified; J30.2 Other seasonal allergic rhinitis; R25.1 Tremor, unspecified; I25.2 Old myocardial infarction; M81.0 Age-related osteoporosis without current pathological fracture; M19.91 Primary osteoarthritis, unspecified site; M54.9 Dorsalgia, unspecified; F41.9 Anxiety disorder, unspecified; M41.9 Scoliosis, unspecified; Z79.01 Long term (current) use of anticoagulants; Z87.891 Personal history of nicotine dependence; Z86.73 Personal history of transient ischemic attack (TIA), and cerebral infarction without residual deficits; Z96.653 Presence of artificial knee joint, bilateral; Z96.611 Presence of right artificial shoulder joint; Z96.612 Presence of left artificial shoulder joint
CPT/HCPCS: 36221; 36415; 71045; 71275; 80048; 80053; 82565; 83735; 83874; 83880; 84443; 84484; 85025; 85027; 85610; 85730; 87081; 93005; 93041; 93306; 93458; 94640; 94760; 96374

== ENCOUNTER 2019-11-16 07:29 | Inpatient (IN) | payer MEDICARE, OTHER ==
[2019-11-16] VITALS (15 sets, daily range): BP systolic 90–153; BP diastolic 58–91
[~2019-11-16] VITALS: Ht 167.7 cm; Wt 59.3 kg
[~2019-11-16 07:29] MED LIST changes: +ACHD5005 PO; +AMLO5TAB9 PO; -HYDR-3812 PO; +PANT40TA2 PO; +ROPI1TAB PO; -ROPI1TAB2 PO
[2019-11-16] MEDS ORDERED: dilTIAZem DRIP PRE-MIX 125 ML IV ONE (07:34)
[2019-11-16] MEDS ORDERED: LACTATED RINGERS 1,000 ML IV ONE ×2 (07:40→08:26)
--- OUTSIDE RECORDS SUMMARY | 2019-11-16 07:42 | XMS REPORT ---
Author Author [facility] [employer] [place] [facility] Address [address] [address] Care Team Providers Care Library Monitor Name Role Phone CARLA HIRSCH BIOPHYSICS SCIENTIST Unavailable Unavailable TAPIA DO, FLORENCIA Unavailable Unavailable TAPIA DO, FLORENCIA Unavailable Unavailable MADDI ADRIAN, OSMEL J Unavailable Unavailable KATHRIN PINO, OSMEL Bell Unavailable Unavailable VAIBHAV DO, GILBERTO K Unavailable Unavailable AMADEO PINO, WILL Denis Unavailable Unavailable CRISTHIAN PINO, KRISS Denis Unavailable Unavailable BO KEENAN Unavailable Unavailable SHREE DELVALLE MD Unavailable Unavailable MACEY PINO, KING Rhoades Unavailable Unavailable NAPOLEON GALLEGOS MD Unavailable Unavailable NAPOLEON GALLEGOS MD Unavailable Unavailable Unavailable Unavailable Unavailable Unavailable Allergies Normalized Allergy Reported Date of Reaction(s) Care Provider Facility Allergy Type classification allergen Allergy Onset Drug Allergy Sulfonamides Sulfonamides 12-21-2008 - no informati on NAPO[facility] Not Available (22 sources.) (antibiotic) (Antibiotic) MD ROSY ([id number] ) Medications No Information Problems Active Problems Problem Normalized Date Last Normalized Normalized Provider Fa cility Classification Problem(s) Recorded Problem Problem Sta tus Duration Congestive Acute Chronic Active [facility] Via heart failure; diastolic MD Kayla GALLEGOS nonhypertensiv (congestive) Hospital - e (7 sources.) heart failure [place] (81240) Osteoporosis Age-related Chronic Active N[facility] Via (7 sources.) osteoporosis MD Kayla GALLEGOS without Hospital - current [place] pathological (49741) fracture Peripheral and Atherosclerosi Chronic Active DANIEL DONNELLY Via visceral s of renal MD Kayla [place] artery Hospital - s (8 sources.) Translations: [place] [ (76315) ATHEROSCLEROSI S OF AORTA] Coronary Atheroscleroti Chronic Active [facility] Marlene DONNELLY Via atherosclerosi c heart MD Garza s and other disease of Hospital - heart disease [place] (18 sources.) coronary (39144) artery without angina pectoris Translations: [ OLD MYOCARDIAL INFARCTION] Acute Cerebral Chronic Active FLORENCIA TAPIA , Not Avai lable cerebrovascula infarction, DO (55015) r disease (5 unspecified sources.) Other bone Disorder of Episodic Active N[facility] Not Avail able disease and bone and MD ROSY (67853) musculoskeleta cartilage, l deformities unspecified (1 source.) Spondylosis; Dorsalgia, Episodic Active WILL AMADEO , [facility] Via intervertebral unspecified MD Garza disc Hospital - disorders; [place] other back (40680) problems (14 sources.) Chronic Emphysema, Chronic Active [facility] Via obstructive unspecified MD Kayla GALLEGOS pulmonary Hospital - disease and [place] bronchiectasis (82261) (7 sources.) Other Encounter for 11-06-2019 - Episodic Active ADAM HENSON Not Available screening for screening (36855) suspected mammogram for conditions malignant (not mental neoplasm of disorders or breast infectious Translations: disease) (13 [ SCRN sources.) MAMMO-HIGH RISK PT, MALIGNANT NEOPL, OTH ABN AND INCONCLUSIVE FINDINGS ON DX ] Essential Essential Chronic Active FLORENCIA TAPIA , Not Maria Victoria ilable hypertension (primary) DO (12810) (17 sources.) hypertension Other Facial Episodic Active FLORENCIA TAPIA , Not Avai lable connective weakness DO (83226) tissue disease (5 sources.) Anxiety Generalized Chronic Active FLORENCIA TAPIA , Not A vailable disorders (24 anxiety DO (99474) sources.) disorder Translations: [ ANXIETY DISORDER, UNSPECIFIED] Paralysis (5 Hemiplegia, Chronic Active FLORENCIA TAPIA , No t Available sources.) unspecified DO (55168) affecting left nondominant side Disorders of Hyperlipidemia Chronic Active FLORENCIA TAPIA , Not Available lipid , unspecified DO (98917) metabolism (12 sources.) Hypertension Hypertensive Chronic Active [facility] Vi a with heart disease MD Kayla GALLEGOS complications with heart Hospital - and secondary failure [place] hypertension (19985) (7 sources.) Other research professor Episodic Active [facility] Via aftercare (7 (current) use MD Kayla GALLEGOS sources.) of Hospital - anticoagulants [place] (12399) Cancer of Malignant Chronic Active ADAM JON Not Avail able breast (1 neoplasm of (65510) source.) breast (female), unspecified Acute Myocardial Chronic Active WILL AMADEO , [facility] Vi a myocardial infarction MD Garza infarction (11 type 2 Hospital - sources.) [place] (05718) Other acquired Other forms of Chronic Active OSMEL MADDI , [facility] Via deformities (1 scoliosis, DC Kayla source.) lumbar region Hospital [facility] (76212) Other upper Other seasonal Chronic Active WILL AMADEO , [facility] Via respiratory allergic MD Garza disease (14 rhinitis Hospital - sources.) [place] (78060) Parkinson`s Parkinson's Chronic Active WILL AMADEO , [facility] Via disease (7 disease MD Garza sources.) Hospital [facility] (79754) Screening and Personal Episodic Active GILBERTO VAIBHAV , DO [facility] Via history of history of [facility] nicotine Hospital - and substance dependence [place] abuse codes (69532) (19 sources.) Other Personal Episodic Active GILBERTO VAIBHAV , DO [facility] Via circulatory history of [facility] disease (12 transient Hospital - sources.) ischemic [place] attack (TIA), (38076) and cerebral infarction without residual deficits Other Presence of Chronic Active GILBERTO VAIBHAV , DO [facility] V ia 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, Hospital - (19 sources.) bilateral [place] (65155) Other Presence of Chronic Active GILBERTO VAIBHAV , DO [facility] V ia connective left Kayla tissue disease artificial hip Hospital - (5 sources.) joint [place] (47788) Other Presence of Chronic Active WILL AMADEO , [facility] V ia connective left MD Whitei tissue disease artificial Hospital - (14 sources.) shoulder joint [place] (07118) Other Presence of Chronic Active [facility] Via connective right MD Kayla GALLEGOS tissue disease artificial Hospital - (7 sources.) shoulder joint [place] (79776) Osteoarthritis Primary Chronic Active WILL AMADEO , [facility] Via (14 sources.) osteoarthritis MD Garza , unspecified Hospital - site [place] (11452) Other acquired Scoliosis, Chronic Active [facility] Vi a deformities (7 unspecified MD Kayla GALLEGOS sources.) [facility] (24831) Spondylosis; Spondylosis Chronic Active OSMEL MADDI , [facility] 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 Kayla disc myelopathy or Hospital - disorders; radiculopathy, [place] other back lumbosacral (14816) problems (1 region source.) Other nervous Tremor, Episodic Active CARLA SNOOK Not Av ailable system unspecified () disorders (9 sources.) Cardiac Unspecified Chronic Active WILL CHILDS [facility] V ia dysrhythmias atrial MD Garza (14 sources.) fibrillation Hospital - Translations: [place] [ PAROXYSMAL (99750) ATRIAL FIBRILLATION] Urinary tract Urinary tract Episodic Active FLORENCIA TAPIA , Not Available infections (5 infection, DO (54742) sources.) site not specified Past or Other Problems Problem Normalized Date Last Normalized Normalized Provider Fa cility Classification Problem(s) Recorded Problem Problem Sta tus Duration Residual Acquired Episodic Completed GILBERTO VAIBHAV , DO [facility] Via codes; absence of Kayla unclassified both cervix Hospital - (5 sources.) and uterus [place] () Residual Acquired Episodic Completed GILBERTO VAIBHAV , DO [facility] Via codes; absence of Kayla unclassified other organs Hospital - (5 sources.) [place] () Allergic Allergy status Episodic Completed GILBERTO VAIBHAV , DO [facility] Via reactions (5 to Kayla sources.) sulfonamides Hospital - status [place] () External cause Bathroom of no information no information GILBERTO R RUTHY , DO [facility] Via codes: Place unspecified Kayla of occurrence non-[facility] - (3 sources.) nal (private) [place] residence () single-family (private) house as the place of occurrence of the external cause External cause Bathroom of Episodic Completed GILBERTO VAIBHAV , DO [facility] Via codes: Place unspecified [facility] nal (private) [place] residence () single-family (private) house as the place of occurrence of the external cause Other nervous Dick's palsy Episodic Completed WILL CHILDS [facility] Via system MD [facility] disorders (7 Hospital - sources.) [place] () External cause Fall on same no information no information GILBERTO VAIBHAV , DO [facility] Via codes: Fall (3 level from Kayla sources.) slipping, Hospital - tripping and [place] stumbling (44260) without subsequent striking against object, initial encounter External cause Fall on same Episodic Completed GILBERTO VAIBHAV , DO [facility] Via codes: Fall (2 level from Kayla sources.) slipping, Hospital - tripping and [place] stumbling (40552) without subsequent striking against object, initial encounter Fluid and Hypokalemia Episodic Completed WILL CHILDS , [facility] V ia electrolyte [facility] disorders (7 Hospital - sources.) [place] (87341) Other senior care Episodic Completed GILBERTOLexus BORDENO , DO [facility] Via aftercare (12 (current) use Kayla sources.) of aspirin [facility] (55062) Nonspecific Other chest Episodic Completed WILL CHILDS , [facility] Via chest pain (3 pain MD Kayla sources.) [facility] (75495) Fracture of Unspecified Episodic Completed GILBERTO VAIBHAV , DO [facility] Via upper limb (5 fracture of Kayla sources.) shaft of [facility] humerus, right [place] arm, initial (73389) encounter for closed fracture Other injuries Unspecified Episodic Completed GILBERTOLexus ESPOSITO , DO [facility] Via and conditions injury of [facility] due to right shoulder [facility] external and upper arm, [place] causes (5 initial (31940) sources.) encounter Other Wedge Episodic Completed OSMEL LINDA , [facility] Via fractures (1 compression DC Kayla source.) fracture of [facility] lumbar (70016) vertebra, initial encounter for closed fracture Procedures Procedure Normalized Procedure Procedure Result Performer Facility Date 01-21-2019 FLUOROSCOPY OF no information no name [facility] Via Kayla [facility] ([id number][facility] 07-05-2019 FLUOROSCOPY OF LEFT no information no name [facility] Via Kayla HEART USING [facility] (92094) 01-21-2019 FLUOROSCOPY OF LEFT no information no name [facility] Via Kayla HEART USING [facility] (14428) 07-05-2019 FLUOROSCOPY OF MULT no information no name [facility] Via Kayla COR ART USING [facility] (19989) 01-21-2019 FLUOROSCOPY OF MULT no information no name [facility] Via Kayla COR ART USING [facility] ([id number]) 07-05-2019 FLUOROSCOPY OF no information no name [facility] Via Kayla THORACIC [facility] (63748) 07-05-2019 MEASURE OF CARDIAC no information no name [facility] Via Kayla SAMPL PRESSURE, [facility] (21766) 01-21-2019 MEASURE OF CARDIAC no information no name [facility] Via Kayla SAMPL PRESSURE, [facility] (38078) Immunizations No Information Results No Information Vital Signs No Information Interventions No Information Plan of Treatment No Information Goals No Information Social History No Information Functional Status No Information Mental Status No Information Encounters Encounter Normalized Encounter Encounter Diagnosis Care Provi jose Organization Date Type 07-04-2019 Emergency department no information no name no organization name patient visit 2019 Emergency department no information no name no organization name patient visit 12-13-2018 Emergency department no information no name no organization name - patient visit 12-14-2018 12-13-2018 Emergency department no information no name no organization name - patient visit 12-13-2018 06-20-2016 Emergency department no information no name no organization name patient visit 07-04-2019 Evaluation and no information NAPOLEON Bell [facility] Via Kayla - management of (no phone) [facility] 07-06-2019 inpatient (no phone) 01-20-2019 Evaluation and no information no name no organ ization name - management of 01-21-2019 inpatient 06-20-2016 Evaluation and no information no name no organ ization name - management of 06-21-2016 inpatient 07-04-2019 Patient encounter no information no name no or ganization name - procedure 07-06-2019 01-20-2019 Patient encounter no information no name no or ganization name - procedure 01-21-2019 12-13-2018 Patient encounter no information no name no or ganization name procedure 11-26-2018 Patient encounter no information SHREE DELVALLE MD (n o [facility] Via Kayla procedure phone) [facility] (no phone) 10-17-2018 Patient encounter no information no name no or ganization name procedure 10-17-2018 Patient encounter no information no name no or ganization name procedure 06-19-2018 Patient encounter no information no name no or ganization name procedure 06-20-2016 Patient encounter no information no name no or ganization name - procedure 06-21-2016 05-22-2016 Patient encounter no information no name no or ganization name procedure 06-08-2014 Patient encounter no information no name no or ganization name procedure 07-17-2013 Patient encounter no information no name no or ganization name procedure Medical Equipment No Information Payers No Information Additional Source Comments This clinical document has been generated using [employer] software that has been certified by the Office of the National Coordinator for Health Information Technology (ONC 15.99.04.3023.Diam.31.00.0.560048) and the National Committee for Dianeticist (NCQA, as an eMeasure certified technology). FOR RECORDS PERTAINING TO PATIENTS WHO ARE OR HAVE BEEN ENROLLED IN A CHEMICAL D EPENDENCY/SUBSTANCE ABUSE PROGRAM, SOME INFORMATION MAY BE OMITTED. This clinica l summary was aggregated from multiple sources. Caution should be exercised in using it in the provision of clinical care. This summary normalizes information from multiple sources, and as a consequence, information in this document may ma terially change the coding, format and clinical context of patient data. In ritika tion, data may be omitted in some cases. CLINICAL DECISIONS SHOULD BE BASED ON T HE PRIMARY CLINICAL RECORDS. [facility] [employer] [facility]. provides no warranty or guara ntee of the accuracy or completeness of information in this document.The followi information is based on time limited clinical information
--- OUTSIDE RECORDS SUMMARY | 2019-11-16 07:42 | XMS REPORT | Continuity of Care Document ---
Author Organization Unknown Address Unknown Phone Unavailable Allergies Active Description Code Type Severity Reaction Onset Reported/Identified Relationship to Patient Clinical Status Yes Sulfa (Sulfonamide Antibiotics) [id number] 0491 Drug Allergy Unknown N/A 020 Medications There is no data. Problems Date Dx Coded Attending Type Code Diagnosis Diagnosed By 10/26/2011 TARA FOSTER DO V05.8 ZOSTAVAX DX 04/06/2013 TARA FOSTER DO V04.81 FLU SHOT 06/08/2014 Ot 782.2 06/08/2014 Ot V72.81 06/08/2014 [...] Ot V58.61 ANTICOAGULANTS,LT,CURRENT USE 05/22/2016 Ot V58.83 ENC OUNTER FOR THERAPEUTIC DRUG MONITORIN 05/22/2016 Ot 786.05 KYLE RTNESS OF BREATH 05/22/2016 Ot 786.05 KYLE RTNESS OF BREATH 05/22/2016 Ot 796.4 ABN CLINICAL FINDING NEC 05/22/2016 Ot V76.12 OTH SCREEN MAMMO- MALIGN NEOPLASM OF [place] 05/22/2016 Ot 781.0 ABN INVOLUN MOVEMENT NEC 05/22/2016 ROSY PINO, NAPOLEON Denis Ot 793.82 INCONCLUSIVE MAMMOGRAM 05/22/2016 ROSY PINO, NAPOLEON Denis Ot V76.12 OTH SCREEN MAMMO-MALIGN NEOPLASM OF [place] 05/22/2016 NAPOLEON GALLEGOS MD Ot 733.90 BONE CARTILAGE DIS NOS 05/22/2016 ADAM JON Ot 174.9 MALIGN NEOPL BREAST NOS 05/22/2016 ADAM JON Ot V76.11 SCRN MAMMO-HIGH RISK PT, MALIGNANT NEOPL 05/22/2016 ROULA MATAMOROS MD Ot M81.0 AGE- RELATED OSTEOPOROSIS W/O CURRENT PAT 05/22/2016 ROULA MATAMOROS MD Ot Z12.31 ENCNTR SCREEN MAMMOGRAM FOR MALIGNANT NE 05/23/2016 CARLA HIRSCH R MUSEUM OR ZOO DIRECTOR Ot R25.1 TREMOR, UNSPECIFIED 05/24/2016 Ot V76.12 OTH SCREEN MAMMO- MALIGN NEOPLASM OF [place] 05/24/2016 Ot V58.61 ANTICOAGULANTS,LT,CURRENT USE 05/24/2016 Ot V58.83 ENC OUNTER FOR THERAPEUTIC DRUG MONITORIN 05/24/2016 Ot 786.05 KYLE RTNESS OF BREATH 05/24/2016 Ot 786.05 KYLE RTNESS OF BREATH 05/24/2016 Ot 796.4 ABN CLINICAL [...] SCRN MAMMO-HIGH RISK PT, MALIGNANT NEOPL 05/24/2016 SHLIOH PINO, ROULA Arce Ot M81.0 AGE- RELATED OSTEOPOROSIS W/O CURRENT PAT 05/24/2016 SHILOH PINO, ROULA Arce Ot Z12.31 ENCNTR SCREEN MAMMOGRAM FOR MALIGNANT NE 05/24/2016 SNCARLA OH MUSEUM OR ZOO DIRECTOR Ot R25.1 TREMOR, UNSPECIFIED 06/14/2016 SNCARLA OH MUSEUM OR ZOO DIRECTOR Ot R25.1 TREMOR, UNSPECIFIED 06/20/2016 SNCARLA OH MUSEUM OR ZOO DIRECTOR Ot R25.1 TREMOR, UNSPECIFIED 06/21/2016 WILLIE DO FLORENCIA Ot E78.5 HYPERLIPIDEMIA, UNSPECIFIED 06/21/2016 TAPIA DO FLORENCIA Ot F41.1 GENERALIZED ANXIETY DISORDER 06/21/2016 WILLIE DO FLORENCIA Ot G81.94 HEMIPLEGIA, UNSPECIFIED AFFECTING LEFT N 06/21/2016 WILLIE DO FLORENCIA Ot I10 ESSENTIAL (PRIMARY) HYPERTENSION 06/21/2016 WILLIE DO FLORENCIA Ot I63.9 CEREBRAL INFARCTION, UNSPECIFIED 06/21/2016 WILLIE BLAKE FLORENCIA Ot N39.0 URINARY TRACT INFECTION, SITE NOT SPECIF 06/21/2016 TAPIA DO, FLORENCIA Ot R29.81 0 FACIAL WEAKNESS 06/13/2018 MOOK PINO, SHREE Ot Z12.31 ENCNTR SCREEN MAMMOGRAM FOR MALIGNANT NE 06/19/2018 NAPOLEON GALLEGOS MD Ot 793.82 INCONCLUSIVE MAMMOGRAM 06/19/2018 NAPOLEON GALLEGOS MD Ot V76.12 OTH SCREEN MAMMO-MALIGN NEOPLASM OF [place] 06/19/2018 NAPOLEON GALLEGOS MD Ot 733.90 BONE CARTILAGE DIS NOS 06/19/2018 ADAM JON Ot 174.9 MALIGN NEOPL BREAST NOS 06/19/2018 DANAYADAM Ot V76.11 SCRN MAMMO-HIGH RISK PT, MALIGNANT NEOPL 06/19/2018 ROULA MATAMOROS MD Ot M81.0 AGE- RELATED OSTEOPOROSIS W/O CURRENT PAT 06/19/2018 ROULA MATAMOROS MD, Ot Z12.31 ENCNTR SCREEN MAMMOGRAM FOR MALIGNANT NE 06/19/2018 CARLA HIRSCH R MUSEUM OR ZOO DIRECTOR Ot R25.1 TREMOR, UNSPECIFIED 06/19/2018 SHREE DELVALLE MD, Ot Z12.31 ENCNTR SCREEN MAMMOGRAM FOR MALIGNANT NE 06/20/2018 SHREE DELVALLE MD, Ot Z12.31 ENCNTR SCREEN MAMMOGRAM FOR MALIGNANT NE 07/11/2018 SHREE DELVALLE MD Ot Z12.31 ENCNTR SCREEN MAMMOGRAM FOR MALIGNANT NE 11/07/2018 OSMEL LINDA DC Ot M41. 86 OTHER FORMS OF SCOLIOSIS, LUMBAR REGION 11/07/2018 [...] (PRIMARY) HYPERTENSION 12/14/2018 GILBERTO ESPOSITO DO Ot S42.301 A UNSP FRACTURE OF SHAFT OF HUMERUS, RIGHT 12/14/2018 VAIBHAV GILBERTO BLAKE Ot S49.91X A UNSP INJURY OF RIGHT SHOULDER AND UPPER 12/14/2018 VAIBHAV GILBERTO BLAKE Ot W01.0XX A FALL SAME LEV FROM SLIP/TRIP W/O STRIKE 12/14/2018 GILBERTO ESPOSITO DO Ot Y92.002 BATHRM OF [facility] NON-INSTITUT RESDNCE SNGL 12/14/2018 GILBERTO ESPOSITO DO Ot Z79.82 [facility] (CURRENT) USE OF ASPIRIN 12/14/2018 GILBERTO ESPOSITO DO Ot Z86.73 PRSNL HX OF TIA (TIA), AND CEREB INFRC W 12/14/2018 VAIBHAV GILBERTO BLAKE Ot Z87.891 PERSONAL HISTORY OF NICOTINE DEPENDENCE 12/14/2018 GILBERTO ESPOSITO DO, Ot Z88.2 ALLERGY STATUS TO SULFONAMIDES STATUS 12/14/2018 VAIBHAV GILBERTO BLAKE Ot Z90.710 ACQUIRED ABSENCE OF BOTH CERVIX AND UTER 12/14/2018 GILBERTO ESPOSITO DO Ot Z90.89 ACQUIRED ABSENCE OF OTHER ORGANS 12/14/2018 VAIBHAV GILBERTO BLAKE Ot Z96.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 12/14/2018 VAIBHAV GILBERTO BLAKE Ot Z96.653 PRESENCE OF ARTIFICIAL KNEE JOINT, BILAT 12/16/2018 VAIBHAV GILBERTO BLAKE Ot F41.9 ANXIETY DISORDER, UNSPECIFIED 12/16/2018 VAIBHAV GILBERTO BLAKE Ot I10 ESSENTIAL (PRIMARY) HYPERTENSION 12/16/2018 VAIBHAV GILBERTO BLAKE Ot S42.301 A UNSP FRACTURE OF SHAFT OF HUMERUS, RIGHT 12/16/2018 GILBERTO ESPOSITO DO Ot S49.91X A UNSP INJURY OF RIGHT SHOULDER AND UPPER 12/16/2018 GILBERTO ESPOSITO DO Ot W01.0XX A FALL SAME LEV FROM SLIP/TRIP W/O STRIKE 12/16/2018 GILBERTO ESPOSITO DO Ot Y92.002 BATHRM OF [facility] NON-INSTITUT RESDNCE SNGL 12/16/2018 GILBERTO ESPOSITO DO Ot Z79.82 [facility] (CURRENT) USE OF ASPIRIN 12/16/2018 GILBERTO ESPOSITO DO Ot Z86.73 PRSNL HX OF TIA (TIA), AND CEREB INFRC W 12/16/2018 VAIBHAV BLAKE GILBERTO Martin Ot Z87.891 PERSONAL HISTORY OF NICOTINE DEPENDENCE 12/16/2018 GILBERTO ESPOSITO DO Ot Z88.2 ALLERGY STATUS TO SULFONAMIDES STATUS 12/16/2018 GILBERTO ESPOSITO DO Ot Z90.710 ACQUIRED ABSENCE OF BOTH CERVIX AND UTER 12/16/2018 VAIBHAV BLAKE GILBERTO Martin Ot Z90.89 ACQUIRED ABSENCE OF OTHER ORGANS 12/16/2018 VAIBHAV BLAKE GILBERTO Martin Ot Z96.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 12/16/2018 VAIBHAV DOGILBERTO Ot Z96.653 PRESENCE OF ARTIFICIAL KNEE JOINT, BILAT 01/21/2019 WILL CHILDS MD Ot E78. 5 HYPERLIPIDEMIA, UNSPECIFIED 01/21/2019 WILL CHILDS MD Ot E87. 6 HYPOKALEMIA 01/21/2019 WILL CHILDS MD Ot F41. 9 ANXIETY DISORDER, UNSPECIFIED 01/21/2019 WILL CHILDS MD Ot G20 PARKINSON'S DISEASE 01/21/2019 WILL CHILDS MD Ot G51. 0 BISHOP'S PALSY 01/21/2019 WILL CHILDS MD Ot I10 ESSENTIAL (PRIMARY) HYPERTENSION 01/21/2019 WILL CHILDS MD Ot I48. 91 UNSPECIFIED ATRIAL FIBRILLATION 01/21/2019 WILL CHILDS MD Ot J30. 2 OTHER SEASONAL ALLERGIC RHINITIS 01/21/2019 WILL CHILDS MD Ot M19. 91 PRIMARY OSTEOARTHRITIS, UNSPECIFIED SITE 01/21/2019 WILL CHILDS MD Ot M54. 9 DORSALGIA, UNSPECIFIED 01/21/2019 WILL CHILDS MD Ot R07. 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 5 HYPERLIPIDEMIA, UNSPECIFIED 01/21/2019 WILL CHILDS MD Ot E87. 6 HYPOKALEMIA 01/21/2019 WILL CHILDS MD Ot F41. 9 ANXIETY DISORDER, UNSPECIFIED 01/21/2019 WILL CHILDS MD Ot G20 PARKINSON'S DISEASE 01/21/2019 WILL CHILDS MD Ot G51. 0 BISHOP'S PALSY 01/21/2019 WILL CHILDS MD Ot I10 ESSENTIAL (PRIMARY) HYPERTENSION 01/21/2019 WILL CHILDS MD Ot I21. A1 MYOCARDIAL INFARCTION TYPE 2 01/21/2019 WILL CHILDS MD Ot I25. 10 ATHSCL HEART DISEASE OF [place] CORONARY 01/21/2019 WILL CHILDS MD Ot I48. 0 PAROXYSMAL ATRIAL FIBRILLATION 01/21/2019 WILL CHILDS MD Ot I48. 91 UNSPECIFIED ATRIAL FIBRILLATION 01/21/2019 WILL CHILDS MD Ot I70. 0 ATHEROSCLEROSIS OF [place] 01/21/2019 WILL CHILDS MD Ot I70. 1 ATHEROSCLEROSIS OF RENAL ARTERY 01/21/2019 WILL CHILDS MD Ot J30. 2 OTHER SEASONAL ALLERGIC RHINITIS 01/21/2019 WILL CHILDS MD Ot M19. 91 PRIMARY OSTEOARTHRITIS, UNSPECIFIED SITE 01/21/2019 WILL CHILDS MD Ot M54. 9 DORSALGIA, UNSPECIFIED 01/21/2019 WILL CHILDS MD Ot R07. 89 OTHER CHEST PAIN 01/21/2019 WILL CHILDS MD Ot Z79. 82 [facility] (CURRENT) USE OF ASPIRIN 01/21/2019 WILL CHILDS MD Ot Z87.891 PERSONAL HISTORY OF NICOTINE DEPENDENCE 01/21/2019 WILL CHILDS MD Ot Z96.612 PRESENCE OF LEFT ARTIFICIAL SHOULDER ADAM 01/21/2019 WILL CHILDS MD Ot Z96.653 PRESENCE OF ARTIFICIAL KNEE JOINT, BILAT 06/11/2019 SHREE DELVALLE MD Ot R92.8 OTH ABN AND INCONCLUSIVE FINDINGS ON DX 06/12/2019 SHREE DELVALLE MD Ot R92.8 OTH ABN AND INCONCLUSIVE FINDINGS ON DX 07/06/2019 NAPOLEON GALLEGOS MD Ot F41.9 ANXIETY DISORDER, UNSPECIFIED 07/06/2019 NAPOLEON GALLEGOS MD Ot I11.0 HYPERTENSIVE HEART DISEASE WITH HEART FA 07/06/2019 NAPOLEON GALLEGOS MD Ot I21.A1 MYOCARDIAL INFARCTION TYPE 2 07/06/2019 NAPOLEON GALLEGOS MD Ot I25.10 ATHSCL HEART DISEASE OF [place] CORONARY 07/06/2019 NAPOLEON GALLEGOS MD Ot I25.2 OLD MYOCARDIAL INFARCTION 07/06/2019 NAPOLEON GALLEGOS MD Ot I48.0 PAROXYSMAL ATRIAL FIBRILLATION 07/06/2019 NAPOLEON GALLEGOS MD Ot I50.31 ACUTE DIASTOLIC (CONGESTIVE) HEART FAILU 07/06/2019 NAPOLEON GALLEGOS MD Ot J30.2 OTHER SEASONAL ALLERGIC RHINITIS 07/06/2019 NAPOLEON GALLEGOS MD Ot J43.9 EMPHYSEMA, UNSPECIFIED 07/06/2019 NAPOLEON GALLEGOS MD Ot M19.91 PRIMARY OSTEOARTHRITIS, UNSPECIFIED SITE 07/06/2019 NAPOLEON GALLEGOS MD Ot M41.9 SCOLIOSIS, UNSPECIFIED 07/06/2019 NAPOLEON GALLEGOS MD Ot M54.9 DORSALGIA, UNSPECIFIED 07/06/2019 NAPOLEON GALLEGOS MD Ot M81.0 AGE-RELATED OSTEOPOROSIS W/O CURRENT PAT 07/06/2019 NAPOLEON GALLEGOS MD Ot R25.1 TREMOR, UNSPECIFIED 07/06/2019 NAPOLEON GALLEGOS MD Ot 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 07/06/2019 NAPOLEON GALLEGOS MD Ot Z86.73 PRSNL HX OF TIA (TIA), AND CEREB INFRC W 07/06/2019 NAPOLEON GALLEGOS MD Ot Z87.891 PERSONAL HISTORY OF NICOTINE DEPENDENCE 07/06/2019 NAPOLEON GALLEGOS MD Ot Z96.611 PRESENCE OF RIGHT ARTIFICIAL SHOULDER JAZZ 07/06/2019 NAPOLEON GALLEGOS MD Ot Z96.612 PRESENCE OF LEFT ARTIFICIAL SHOULDER ADAM 07/06/2019 NAPOLEON GALLEGOS MD Ot Z96.653 PRESENCE OF ARTIFICIAL KNEE JOINT, BILAT 11/06/2019 SHREE DELVALLE MD Ot R92.8 OTH ABN AND INCONCLUSIVE FINDINGS ON DX Procedures Code Description Performed By Per formed On G0008 FLU ADMINISTRATION (MEDICARE ONLY) 04/06/2013 [id number] ME ASURE OF CARDIAC SAMPL PRESSURE, L H 01/21/2019 [id number] FL UOROSCOPY OF MULT COR ART USING L OSM 01/21/2019 [id number] FL UOROSCOPY OF LEFT HEART USING LOW OSMO 01/21/2019 [id number] FL UOROSCOPY OF ABDOMINAL [place] USING LOW 01/21/2019 [id number] ME ASURE OF CARDIAC SAMPL PRESSURE, L H 07/05/2019 [id number] FL UOROSCOPY OF MULT COR ART USING L OSM 07/05/2019 [id number] FL UOROSCOPY OF LEFT HEART USING LOW OSMO 07/05/2019 [id number] FL UOROSCOPY OF THORACIC [place] USING LOW 07/05/2019 Results Test Result Range Complete blood count (CBC) with automate d white blood cell (WBC) differential - 06/20/16 11:01 Blood leukocytes automated count (number/volume) 6.1 10*3/uL 4.3-11.0 Blood erythrocytes automated count (number/volume) 5.12 10*6/uL 4.35-5.85 Venous blood hemoglobin measurement (mass/volume) 14.2 g/dL 11.5-16.0 Blood hematocrit (volume fraction) 45 % 35-52 Automated erythrocyte mean corpuscular volume 87 [ foz_us] 80-99 Automated erythrocyte mean corpuscular h emoglobin (mass per erythrocyte) 28 pg 25-34 Automated erythrocyte mean corpuscular h emoglobin concentration measurement (mass/volume) 32 g/dL 32-36 Automated erythrocyte distribution width ratio 14. 5 % 10.0- 14.5 Automated blood platelet count [...] 10*3 1.0-4.0 Blood monocytes automated count (number/volume) 0. 5 10*3 0.0-1.0 Automated eosinophil count 0.2 10*3/uL 0 .0-0.3 Automated blood basophil count (count/volume) 0.0 10*3/uL 0.0-0.1 Capillary blood glucose measurement by g lucometer (mass/volume) - 06/20/16 11:03 Capillary blood glucose measurement by glucometer (mas s/volume) 91 mg/dL 70-110 PT panel in platelet poor plasma by coag ulation assay - 06/20/16 11:20 Prothrombin time (PT) in platelet poor plasma by coagu lation assay 13.0 s 12.2-14.7 INR in platelet poor plasma or blood by coagulation as say 1.0 0.8-1.4 Activated partial thromboplastin time (a PTT) in platelet poor plasma bycoagulation assay - 06/20/16 11:20 Activated partial thromboplastin time (a PTT) in platelet poor plasma bycoagulation assay 28 s 24-35 Fibrin D-dimer FEU measurement in platel et poor plasma (mass/volume) - 06/20/16 11:20 Fibrin [...] 5-14 Serum or plasma urea nitrogen measurement (mass/volume ) 15 mg/dL 7-18 Serum or plasma creatinine measurement (mass/volume) 0.76 mg/dL 0.60-1.30 Serum or plasma urea nitrogen/creatinine mass ratio 20 NRG Serum or plasma creatinine measurement w ith calculation of estimated glomerular filtration rate > NRG Serum or plasma glucose measurement (mass/volume) 109 mg/dL 70-105 Serum or plasma calcium measurement (mass/volume) 9.0 mg/dL 8.5-10.1 Serum or plasma total bilirubin measurement (mass/volu me) 0.5 mg/dL 0.1-1.0 Serum or plasma alkaline phosphatase kem surement (enzymatic activity/volume) 81 U/L 40-136 Serum or plasma aspartate aminotransfera se measurement (enzymatic activity/volume) 17 U/L 5-34 Serum or plasma alanine aminotransferase measurement (enzymatic activity/volume) 16 U/L 0-55 Serum or plasma protein measurement (mass/volume) 6.6 g/dL 6.4-8.2 Serum or plasma albumin measurement (mass/volume) 3.8 g/dL 3.2-4.5 Serum or plasma troponin i.cardiac measu rement (mass/volume) - 06/20/16 11:20 Serum or plasma troponin i.cardiac measurement (mass/v olume) < ng/mL <0.30 Complete urinalysis with reflex to cultu re - 06/20/16 11:45 Urine color determination YELLOW NRG Urine clarity determination CLEAR NR G Urine pH measurement by test strip 6.5 5-9 Specific gravity of urine by test strip 1.015 1.016-1.022 Urine protein assay by test strip, semi-quantitative NEGATIVE NEGATIVE Urine glucose detection by automated test strip NE GATIVE NEGATIVE Erythrocytes detection in urine sediment by light micr oscopy NEGATIVE NEGATIVE Urine ketones detection by automated test strip NE GATIVE NEGATIVE Urine nitrite detection by test strip POSITIVE NEGATIVE Urine total bilirubin detection by test strip NEGA TIVE NEGATIVE Urine urobilinogen measurement by automated test strip (mass/volume) NORMAL NORMAL Urine leukocyte esterase detection by dipstick 2+ NEGATIVE Automated urine sediment erythrocyte cou nt by microscopy (number/high power field) RARE NRG Automated urine sediment leukocyte count by microscopy (number/high power field) [HPF] NRG Bacteria detection in urine sediment by light microsco py LARGE NRG Squamous epithelial cells detection in u rine sediment by light microscopy 2-5 NRG Crystals detection in urine sediment by light microsco py NONE NRG Casts detection in urine sediment by light microscopy NONE NRG Mucus detection in urine sediment by light microscopy NEGATIVE NRG Complete urinalysis with reflex to culture YES NRG Bacterial urine culture - 06/20/16 11:45 Bacterial urine culture [id number] NRG COLONY COUNT <10,000 NRG FTX;REPORTABLE SENSITIVITY REPORTED 06/21/16 16:45 NRG Bacterial susceptibility panel - 7 11:45 Gentamicin susceptibility test by minimum inhibitory c oncentration >= NRG Trimethoprim/sulfamethoxazole susceptibi lity test by minimum inhibitoryconcentration <= NRG Ampicillin susceptibility test by minimum inhibitory c oncentration >= NRG Tobramycin susceptibility test by minimum inhibitory c oncentration 8 NRG Cefazolin susceptibility test by minimum inhibitory co ncentration <= NRG Ceftriaxone susceptibility test by minimum inhibitory concentration <= NRG Ampicillin/sulbactam susceptibility test by minimum inhibitory concentration 16 NRG Piperacillin/tazobactam susceptibility t est by minimum inhibitory concentration <= NRG Ciprofloxacin susceptibility test by minimum inhibitor y concentration >= NRG Meropenem susceptibility test by minimum inhibitory co ncentration <= NRG Nitrofurantoin susceptibility test by mi nimum inhibitory concentration <= NRG Aztreonam susceptibility test by minimum inhibitory co ncentration <= NRG Extended spectrum beta lactamase (ESBL) producing bacteria susceptibility test by minimum inhibitory concentration - NRG Complete blood count (CBC) with automate d white blood cell (WBC) differential - 06/21/16 03:28 Blood leukocytes automated count (number/volume) 7.1 10*3/uL 4.3-11.0 Blood erythrocytes automated count (number/volume) 5.41 10*6/uL 4.35-5.85 Venous blood hemoglobin measurement (mass/volume) 15.0 g/dL 11.5-16.0 Blood hematocrit (volume fraction) 47 % 35-52 Automated erythrocyte mean corpuscular volume 86 [ foz_us] 80-99 Automated erythrocyte mean corpuscular h emoglobin (mass per erythrocyte) 28 pg 25-34 Automated erythrocyte mean corpuscular h emoglobin concentration measurement (mass/volume) 32 g/dL 32-36 Automated erythrocyte distribution width ratio 14. 5 % 10.0- 14.5 Automated blood platelet count (count/volume) 58 1 0*3/uL 130-400 Automated blood platelet mean volume measurement 11.3 [...] 10*3 1.0-4.0 Blood monocytes automated count (number/volume) 0. 7 10*3 0.0-1.0 Automated eosinophil count 0.2 10*3/uL 0 .0-0.3 Automated blood basophil count (count/volume) 0.0 10*3/uL 0.0-0.1 Blood blood smear finding identification by light micr oscopy YES NR Comprehensive metabolic panel - 06/21/16 03:28 Serum or plasma sodium measurement (moles/volume) 143 mmol/L 135-145 Serum or plasma potassium measurement (moles/volume) 3.5 mmol/L 3.6-5.0 Serum or plasma chloride measurement (moles/volume) 106 mmol/L 98-107 Carbon dioxide 25 mmol/L 21-32 Serum or plasma anion gap determination (moles/volume) 12 mmol/L 5-14 Serum or plasma urea nitrogen measurement (mass/volume ) 7 mg/dL 7-18 Serum or plasma creatinine measurement (mass/volume) 0.69 mg/dL 0.60-1.30 Serum or plasma urea nitrogen/creatinine mass ratio 10 NRG Serum or plasma creatinine measurement w ith calculation of estimated glomerular filtration rate > [facility] Serum or plasma glucose measurement (mass/volume) 94 mg/dL 70-105 Serum or plasma calcium measurement (mass/volume) 9.0 mg/dL 8.5-10.1 Serum or plasma total bilirubin measurement (mass/volu me) 0.6 mg/dL 0.1-1.0 Serum or plasma alkaline phosphatase kme surement (enzymatic activity/volume) 85 U/L 40-136 Serum or plasma aspartate aminotransfera se measurement (enzymatic activity/volume) 20 U/L 5-34 Serum or plasma alanine aminotransferase measurement (enzymatic activity/volume) 17 U/L 0-55 Serum or plasma protein measurement (mass/volume) 6.7 g/dL 6.4-8.2 Serum or plasma albumin measurement (mass/volume) 3.9 g/dL 3.2-4.5 Serum or plasma phosphate measurement (m ass/volume) - 06/21/16 03:28 Serum or plasma phosphate measurement (mass/volume) 3.5 mg/dL 2.3-4.7 Magnesium - 06/21/16 03:28 Magnesium 2.2 mg/dL 1.8-2.4 Lipid 1996 panel - 06/21/16 03:28 Serum or plasma triglyceride measurement (mass/volume) 86 mg/dL <150 Serum or plasma cholesterol measurement (mass/volume) 184 mg/dL < 200 Serum or plasma cholesterol in HDL measurement (mass/v olume) 50 mg/dL 40-60 Cholesterol in LDL [mass/volume] in serum or plasma by direct assay 115 mg/dL 1-129 Serum or plasma cholesterol in VLDL measurement (mass/ volume) 17 mg/dL 5-40 Automated blood platelet count (count/vo lume) - 06/21/16 07:02 Automated blood platelet count (count/volume) 284 10*3/uL 130-400 Complete blood count (CBC) with automate d white blood cell (WBC) differential - 01/19/19 05:00 Blood leukocytes automated count (number/volume) 8.6 10*3/uL 4.3-11.0 Blood erythrocytes automated count (number/volume) 5.31 10*6/uL 4.35-5.85 Venous blood hemoglobin measurement (mass/volume) 14.7 g/dL 11.5-16.0 Blood hematocrit (volume fraction) 48 % 35-52 Automated erythrocyte mean corpuscular volume 90 [ foz_us] 80-99 Automated erythrocyte mean corpuscular h emoglobin (mass per erythrocyte) 28 pg 25-34 Automated erythrocyte mean corpuscular h emoglobin concentration measurement (mass/volume) 31 g/dL 32-36 Automated erythrocyte distribution width ratio 16. 1 % 10.0- 14.5 Automated blood platelet count (count/volume) 242 10*3/uL 130-400 Automated blood platelet mean volume measurement 10.5 [foz_us] 7.4-10.4 Automated blood neutrophils/100 leukocytes 49 % 42-75 Automated blood lymphocytes/100 leukocytes 36 % 12-44 Blood monocytes/100 leukocytes 10 % 0-12 Automated blood eosinophils/100 leukocytes 5 % 0-10 Automated blood basophils/100 leukocytes 0 % 0-10 Blood neutrophils automated count (number/volume) 4.2 10*3 1.8-7.8 Blood lymphocytes automated count (number/volume) 3.1 10*3 1.0-4.0 Blood monocytes automated count (number/volume) 0. 8 10*3 0.0-1.0 Automated eosinophil count 0.4 10*3/uL 0 .0-0.3 Automated blood basophil count (count/volume) 0.0 10*3/uL 0.0-0.1 Comprehensive metabolic panel - 01/19/19 05:00 Serum or plasma sodium measurement (moles/volume) 144 mmol/L 135-145 Serum or plasma potassium measurement (moles/volume) 3.3 mmol/L 3.6-5.0 Serum or plasma chloride measurement (moles/volume) 103 mmol/L 98-107 Carbon dioxide 26 mmol/L 21-32 Serum or plasma anion gap determination (moles/volume) 15 mmol/L 5-14 Serum or plasma urea nitrogen measurement (mass/volume ) 17 mg/dL 7-18 Serum or plasma creatinine measurement (mass/volume) 0.87 mg/dL 0.60-1.30 Serum or plasma urea nitrogen/creatinine mass ratio 20 NRG Serum or plasma creatinine measurement w ith calculation of estimated glomerular filtration rate > NRG Serum or plasma glucose measurement (mass/volume) 111 mg/dL 70-105 Serum or plasma calcium measurement (mass/volume) 10.2 mg/dL 8.5-10.1 Serum or plasma total bilirubin measurement (mass/volu me) 0.6 mg/dL 0.1-1.0 Serum or plasma alkaline phosphatase kem surement (enzymatic activity/volume) 114 U/L 40-136 Serum or plasma aspartate aminotransfera se measurement (enzymatic activity/volume) 19 U/L 5-34 Serum or plasma alanine aminotransferase measurement (enzymatic activity/volume) < U/L 0-55 Serum or plasma protein measurement (mass/volume) 8.5 g/dL 6.4-8.2 Serum or plasma albumin measurement (mass/volume) 4.4 g/dL 3.2-4.5 CALCIUM CORRECTED 9.9 mg/dL 8.5-10.1 Magnesium - 01/19/19 05:00 Magnesium 2.1 mg/dL 1.8-2.4 Serum or plasma troponin i.cardiac measu rement (mass/volume) - 01/19/19 05:00 Serum or plasma troponin i.cardiac measurement (mass/v olume) < ng/mL <0.028 Myoglobin, serum - 01/19/19 05:00 Myoglobin, serum 66.0 ng/mL 10.0-92.0 Serum or plasma lithium measurement (mol es/volume) - 01/19/19 05:00 BNP PT 358.6 pg/mL <100.0 PT panel in platelet poor plasma by coag ulation assay - 01/19/19 05:00 Prothrombin time (PT) in platelet poor plasma by coagu lation assay 13.7 s 12.2-14.7 INR in platelet poor plasma or blood by coagulation as say 1.0 0.8-1.4 Activated partial thromboplastin time (a PTT) in platelet poor plasma bycoagulation assay - 01/19/19 05:00 Activated partial thromboplastin time (a PTT) in platelet poor plasma bycoagulation assay 31 s 24-35 Methicillin resistant Staphylococcus aur eus (MRSA) screening culture - 01/19/19 08:15 MRSA SCREEN RESULT MRSA ISOLATED NRG Serum or plasma troponin i.cardiac measu rement (mass/volume) - 01/19/19 11:03 Serum or plasma troponin i.cardiac measurement (mass/v olume) 0.204 ng/mL <0.028 THYROID STIMULATING HORMONE - 01/19/19 1 1:03 THYROID STIMULATING HORMONE 0.41 u[iU]/mL 0.35-4.94 Serum or plasma troponin i.cardiac measu rement (mass/volume) - 01/19/19 17:00 Serum or plasma troponin i.cardiac measurement (mass/v olume) 0.298 ng/mL <0.028 Serum or plasma troponin i.cardiac measu rement (mass/volume) - 01/19/19 22:55 Serum or plasma troponin i.cardiac measurement (mass/v olume) 0.233 ng/mL <0.028 Automated blood complete blood count (he mogram) panel - 01/20/19 04:55 Blood leukocytes automated count (number/volume) 6.3 10*3/uL 4.3-11.0 Blood erythrocytes automated count (number/volume) 4.84 10*6/uL 4.35-5.85 Venous blood hemoglobin measurement (mass/volume) 13.7 g/dL 11.5-16.0 Blood hematocrit (volume fraction) 44 % 35-52 Automated erythrocyte mean corpuscular volume 90 [ foz_us] 80-99 Automated erythrocyte mean corpuscular h emoglobin (mass per erythrocyte) 28 pg 25-34 Automated erythrocyte mean corpuscular h emoglobin concentration measurement (mass/volume) 31 g/dL 32-36 Automated erythrocyte distribution width ratio 16. 1 % 10.0- 14.5 Automated blood platelet count (count/volume) 198 10*3/uL 130-400 Automated blood platelet mean volume measurement 10.4 [foz_us] 7.4-10.4 Comprehensive metabolic panel - 01/20/19 04:55 Serum or plasma sodium measurement (moles/volume) 145 mmol/L 135-145 Serum or plasma potassium measurement (moles/volume) 3.4 mmol/L 3.6-5.0 Serum or plasma chloride measurement (moles/volume) 108 mmol/L 98-107 Carbon dioxide 28 mmol/L 21-32 Serum or plasma anion gap determination (moles/volume) 9 mmol/L 5-14 Serum or plasma urea nitrogen measurement (mass/volume ) 16 mg/dL 7-18 Serum or plasma creatinine measurement (mass/volume) 0.72 mg/dL 0.60-1.30 Serum or plasma urea nitrogen/creatinine mass ratio 22 NRG Serum or plasma creatinine measurement w ith calculation of estimated glomerular filtration rate > NRG Serum or plasma glucose measurement (mass/volume) 94 mg/dL 70-105 Serum or plasma calcium measurement (mass/volume) 9.2 mg/dL 8.5-10.1 Serum or plasma total bilirubin measurement (mass/volu me) 0.5 mg/dL 0.1-1.0 Serum or plasma alkaline phosphatase kem surement (enzymatic activity/volume) 102 U/L 40-136 Serum or plasma aspartate aminotransfera se measurement (enzymatic activity/volume) 14 U/L 5-34 Serum or plasma alanine aminotransferase measurement (enzymatic activity/volume) 18 U/L 0-55 Serum or plasma protein measurement (mass/volume) 6.2 g/dL 6.4-8.2 Serum or plasma albumin measurement (mass/volume) 3.6 g/dL 3.2-4.5 CALCIUM CORRECTED 9.5 mg/dL 8.5-10.1 Serum or plasma troponin i.cardiac measu rement (mass/volume) - 01/20/19 04:55 Serum or plasma troponin i.cardiac measurement (mass/v olume) 0.211 ng/mL <0.028 Lipid 1996 panel - 01/20/19 04:55 Serum or plasma triglyceride measurement (mass/volume) 60 mg/dL <150 Serum or plasma cholesterol measurement (mass/volume) 127 mg/dL < 200 Serum or plasma cholesterol in HDL measurement (mass/v olume) 54 mg/dL 40-60 Cholesterol in LDL [mass/volume] in serum or plasma by direct assay 60 mg/dL 1-129 Serum or plasma cholesterol in VLDL measurement (mass/ volume) 12 mg/dL 5-40 Whole blood basic metabolic panel - 01/02 06:19 Serum or plasma sodium measurement (moles/volume) 142 mmol/L 135-145 Serum or plasma potassium measurement (moles/volume) 3.5 mmol/L 3.6-5.0 Serum or plasma chloride measurement (moles/volume) 107 mmol/L 98-107 Carbon dioxide 27 mmol/L 21-32 Serum or plasma anion gap determination (moles/volume) 8 mmol/L 5-14 Serum or plasma urea nitrogen measurement (mass/volume ) 15 mg/dL 7-18 Serum or plasma creatinine measurement (mass/volume) 0.69 mg/dL 0.60-1.30 Serum or plasma urea nitrogen/creatinine mass ratio 22 NRG Serum or plasma creatinine measurement w ith calculation of estimated glomerular filtration rate > NRG Serum or plasma glucose measurement (mass/volume) 91 mg/dL 70-105 Serum or plasma calcium measurement (mass/volume) 9.0 mg/dL 8.5-10.1 Magnesium - 01/21/19 06:19 Magnesium 1.9 mg/dL 1.8-2.4 Comprehensive metabolic panel - 07/04/19 08:21 Serum or plasma sodium measurement (moles/volume) 141 mmol/L 135-145 Serum or plasma potassium measurement (moles/volume) 3.7 mmol/L 3.6-5.0 Serum or plasma chloride measurement (moles/volume) 105 mmol/L 98-107 Carbon dioxide 25 mmol/L 21-32 Serum or plasma anion gap determination (moles/volume) 11 mmol/L 5-14 Serum or plasma urea nitrogen measurement (mass/volume ) 16 mg/dL 7-18 Serum or plasma creatinine measurement (mass/volume) 0.79 mg/dL 0.60-1.30 Serum or plasma urea nitrogen/creatinine mass ratio 20 NRG Serum or plasma creatinine measurement w ith calculation of estimated glomerular filtration rate > NRG Serum or plasma glucose measurement (mass/volume) 82 mg/dL 70-105 Serum or plasma calcium measurement (mass/volume) 9.4 mg/dL 8.5-10.1 Serum or plasma total bilirubin measurement (mass/volu me) 0.5 mg/dL 0.1-1.0 Serum or plasma alkaline phosphatase kem surement (enzymatic activity/volume) 97 U/L 40-136 Serum or plasma aspartate aminotransfera se measurement (enzymatic activity/volume) 20 U/L 5-34 Serum or plasma alanine aminotransferase measurement (enzymatic activity/volume) 15 U/L 0-55 Serum or plasma protein measurement (mass/volume) 7.6 g/dL 6.4-8.2 Serum or plasma albumin measurement (mass/volume) 4.4 g/dL 3.2-4.5 CALCIUM CORRECTED 9.1 mg/dL 8.5-10.1 Magnesium - 07/04/19 08:21 Magnesium 2.0 mg/dL 1.6-2.4 PT panel in platelet poor plasma by coag ulation assay - 07/04/19 08:21 Prothrombin time (PT) in platelet poor plasma by coagu lation assay 12.9 s 12.2-14.7 INR in platelet poor plasma or blood by coagulation as say 0.9 0.8-1.4 Activated partial thromboplastin time (a PTT) in platelet poor plasma bycoagulation assay - 07/04/19 08:21 Activated partial thromboplastin time (a PTT) in platelet poor plasma bycoagulation assay 28 s 24-35 Complete blood count (CBC) with automate d white blood cell (WBC) differential - 07/04/19 08:21 Blood leukocytes automated count (number/volume) 8.5 10*3/uL 4.3-11.0 Blood erythrocytes automated count (number/volume) 5.29 10*6/uL 4.35-5.85 Venous blood hemoglobin measurement (mass/volume) 14.6 g/dL 11.5-16.0 Blood hematocrit (volume fraction) 47 % 35-52 Automated erythrocyte mean corpuscular volume 90 [ foz_us] 80-99 Automated erythrocyte mean corpuscular h emoglobin (mass per erythrocyte) 28 pg 25-34 Automated erythrocyte mean corpuscular h emoglobin concentration measurement (mass/volume) 31 g/dL 32-36 Automated erythrocyte distribution width ratio 16. 2 % 10.0- 14.5 Automated blood platelet count (count/volume) 252 10*3/uL 130-400 Automated blood platelet mean volume measurement 10.8 [foz_us] 7.4-10.4 Automated blood neutrophils/100 leukocytes 58 % 42-75 Automated blood lymphocytes/100 leukocytes 27 % 12-44 Blood monocytes/100 leukocytes 13 % 0-12 Automated blood eosinophils/100 leukocytes 2 % 0-10 Automated blood basophils/100 leukocytes 1 % 0-10 Blood neutrophils automated count (number/volume) 4.9 10*3 1.8-7.8 Blood lymphocytes automated count (number/volume) 2.3 10*3 1.0-4.0 Blood monocytes automated count (number/volume) 1. 1 10*3 0.0-1.0 Automated eosinophil count 0.2 10*3/uL 0 .0-0.3 Automated blood basophil count (count/volume) 0.0 10*3/uL 0.0-0.1 Myoglobin, serum - 07/04/19 08:21 Myoglobin, serum 45.5 ng/mL 10.0-92.0 Serum or plasma troponin i.cardiac measu rement (mass/volume) - 07/04/19 08:21 Serum or plasma troponin i.cardiac measurement (mass/v olume) < ng/mL <0.028 Serum or plasma thyrotropin measurement by detection limit <=0.05 miu/l (units/volume) - 07/04/19 08:21 Serum or plasma thyrotropin measurement by detection limit <=0.05 miu/l (units/volume) 0.76 u[iU]/mL 0.35-4.94 Serum or plasma lithium measurement (mol es/volume) - 07/04/19 08:21 BNP PT 244.4 pg/mL <100.0 Serum or plasma troponin i.cardiac measu rement (mass/volume) - 07/04/19 10:40 Serum or plasma troponin i.cardiac measurement (mass/v olume) 0.921 ng/mL <0.028 Serum or plasma troponin i.cardiac measu rement (mass/volume) - 07/04/19 16:53 Serum or plasma troponin i.cardiac measurement (mass/v olume) 6.081 ng/mL <0.028 Serum or plasma creatinine measurement ( mass/volume) - 07/04/19 16:53 Serum or plasma creatinine measurement (mass/volume) 0.80 mg/dL 0.60-1.30 Methicillin resistant Staphylococcus aur eus (MRSA) screening culture - 07/04/19 19:42 Methicillin resistant Staphylococcus aureus (MRSA) scr eening culture NEG NRG Automated blood complete blood count (he mogram) panel - 07/06/19 04:10 Blood leukocytes automated count (number/volume) 7.2 10*3/uL 4.3-11.0 Blood erythrocytes automated count (number/volume) 4.49 10*6/uL 4.35-5.85 Venous blood hemoglobin measurement (mass/volume) 12.6 g/dL 11.5-16.0 Blood hematocrit (volume fraction) 40 % 35-52 Automated erythrocyte mean corpuscular volume 90 [ foz_us] 80-99 Automated erythrocyte mean corpuscular h emoglobin (mass per erythrocyte) 28 pg 25-34 Automated erythrocyte mean corpuscular h emoglobin concentration measurement (mass/volume) 31 g/dL 32-36 Automated erythrocyte distribution width ratio 16. 1 % 10.0- 14.5 Automated blood platelet count (count/volume) 220 10*3/uL 130-400 Automated blood platelet mean volume measurement 10.4 [foz_us] 7.4-10.4 Whole blood basic metabolic panel - 06/18 04:10 Serum or plasma sodium measurement (moles/volume) 141 mmol/L 135-145 Serum or plasma potassium measurement (moles/volume) 3.8 mmol/L 3.6-5.0 Serum or plasma chloride measurement (moles/volume) 105 mmol/L 98-107 Carbon dioxide 26 mmol/L 21-32 Serum or plasma anion gap determination (moles/volume) 10 mmol/L 5-14 Serum or plasma urea nitrogen measurement (mass/volume ) 16 mg/dL 7-18 Serum or plasma creatinine measurement (mass/volume) 0.75 mg/dL 0.60-1.30 Serum or plasma urea nitrogen/creatinine mass ratio 21 NRG Serum or plasma creatinine measurement w ith calculation of estimated glomerular filtration rate > NRG Serum or plasma glucose measurement (mass/volume) 102 mg/dL 70-105 Serum or plasma calcium measurement (mass/volume) 8.6 mg/dL 8.5-10.1 Serum or plasma troponin i.cardiac measu rement (mass/volume) - 07/06/19 04:10 Serum or plasma troponin i.cardiac measurement (mass/v olume) 1.432 ng/mL <0.028 Encounters ACCT No. Visit Date/Time Discharge Status Pt. Type Provider Facility Loc./Unit Complaint [id number] 06/08/2014 09:49:53 ACT Document Registration [id number] 04/06/2013 16:39:00 04/06/2013 23:59: 59 CLS Outpatient KRISTIN BLAKE TAAR Mario [id number] 07/04/2019 12:35:00 020 13:25:00 DIS Inpatient ROSY PINO, NAPOLEON Denis [facility] 4TH CHEST PAIN,ELEV ATED TROPONIN,HYPERTENSION,HYPOXIA [id number] 01/20/2019 11:42:00 16:40:00 DIS Inpatient AMADEO PINO, WILL Denis [facility] 4TH AFIB W RVR,CP [id number] 12/13/2018 22:30:00 01:59:00 DIS Emergency VAIBHAV GILBERTO BLAKE [facility] ER RT ARM INJURY [id number] 11/26/2018 08:03:00 23:59:59 CLS Outpatient SHREE DELVALLE MD [facility] RAD ABN MAMMO [id number] 10/17/2018 11:53:00 23:59:59 CLS Outpatient OSMEL LINDA DC [facility] RAD ACUTE LOW BACK PAIN [id number] 06/19/2018 14:33:00 23:59:59 CLS Outpatient SHREE DELVALLE MD [facility] RAD SCREENING [id number] 04/03/2017 10:15:00 23:59:59 CLS Preadmit OTHER, UNLISTED [facility] RAD SCREENING [id number] 06/20/2016 14:25:00 017 14:37:00 DIS Inpatient FLORENCIA TAPIA DO, [facility] ICU CVA UTI [id number] 05/22/2016 13:39:00 016 23:59:59 CLS Outpatient CARLA HIRSCH R [employer] OR [employer] DIRECTOR [facility] RAD TREMORS [id number] 07/28/2015 10:50:00 016 23:59:59 CLS Outpatient ROULA MATAMOROS MD, [facility] RAD SCREENING [id number] 06/08/2014 09:49:00 014 23:59:59 CLS Outpatient ADAM JON [facility] RAD SCREENING [id number] 10/02/2013 12:41:00 014 23:59:59 CLS Outpatient [id number] 07/17/2013 11:18:00 014 23:59:59 CLS Outpatient NAPOLEON GALLEGOS MD [facility] RAD SCREENING,KYPHO SEOLOSIS [id number] 05/25/2013 14:26:00 23:59:59 CLS Outpatient NAPOLEON GALLEGOS MD [facility] RAD SCREENING [id number] 06/08/2014 09:48:00 Document Registration [id number] 07/09/2012 07:55:00 Document Registration [id number] 05/14/2012 15:02:00 Document Registration [id number] 01/10/2012 10:34:00 Document Registration [id number] 01/09/2012 14:20:00 Document Registration [id number] 09/20/2011 10:45:00 Document Registration [id number] 05/07/2011 08:48:00 Document Registration [id number] 05/05/2010 09:32:00 Document Registration [id number] 05/04/2009 13:33:00 Document Registration [id number] 01/12/2009 13:36:00 Document Registration [id number] 12/20/2008 09:09:00 Document Registration
[2019-11-16] MEDS ORDERED: ASPIRIN 81 MG CHEW (CHILDREN'S ASA) PO ONE (07:45)
[2019-11-16] MEDS: dilTIAZem DRIP PRE-MIX 125 ML IV SCH ×2 (07:45→10:04)
[2019-11-16 07:51] LABS: BASOPHILS % (AUTO) 0 % (0-10); EOSINOPHILS # (AUTO) 0.4 10^3/uL (0.0-0.3); EOSINOPHILS % (AUTO) 5 % (0-10); HEMATOCRIT 46 % (35-52); HEMOGLOBIN 14.2 G/DL (11.5-16.0); LYMPHOCYTES # (AUTO) 2.2 X 10^3 (1.0-4.0); LYMPHOCYTES % (AUTO) 32 % (12-44); MEAN CORPUSCULAR HEMOGLOBIN 28 PG (25-34); MEAN CORPUSCULAR HGB CONC 31 G/DL (32-36); MEAN CORPUSCULAR VOLUME 89 FL (80-99); MEAN PLATELET VOLUME 10.5 FL (7.4-10.4); MONOCYTES # (AUTO) 0.7 X 10^3 (0.0-1.0); MONOCYTES % (AUTO) 10 % (0-12); NEUTROPHILS # (AUTO) 3.6 X 10^3 (1.8-7.8); NEUTROPHILS % (AUTO) 52 % (42-75); PLATELET COUNT 270 10^3/uL (130-400); RED CELL DISTRIBUTION WIDTH 15.9 % (10.0-14.5); WHITE BLOOD COUNT 6.9 10^3/uL (4.3-11.0)
[2019-11-16 07:56] LABS: PROTHROMBIN TIME PATIENT 13.8 SEC (12.2-14.7)
[2019-11-16 08:01] LABS: CHLORIDE 106 MMOL/L (98-107); SODIUM 142 MMOL/L (135-145)
[2019-11-16 08:02] LABS: CALCIUM 9.1 MG/DL (8.5-10.1)
[2019-11-16 08:03] LABS: GLUCOSE 97 MG/DL (70-105)
[2019-11-16 08:05] LABS: BILIRUBIN,TOTAL 0.4 MG/DL (0.1-1.0); CARBON DIOXIDE 26 MMOL/L (21-32)
[2019-11-16 08:07] LABS: ALKALINE PHOSPHATASE 73 U/L (40-136); CREATININE SERUM 0.78 MG/DL (0.60-1.30); GFR ESTIMATED > 60
[2019-11-16 08:08] LABS: BUN/CREATININE RATIO 28
[2019-11-16 08:10] LABS: ALANINE AMINOTRANSFERASE < 6 U/L (0-55); MAGNESIUM 2.1 MG/DL (1.6-2.4)
--- NOTE | 2019-11-16 08:17 | ED Chest Pain ---
General Chief Complaint: Cardiac/General Problems Stated Complaint: CHEST PAIN Source: patient Exam Limitations: no limitations History of Present Illness Date Seen by Provider: Nov 16, 2019 Time Seen by Provider: 07:43 Initial Comments Here with report of central chest pain and palpitations. Feels weak and a little short of breath. Patient is on Eliquis for atrial fibrillation. Denies recent similar episodes. The pain his pressure and somewhat sharp and central and radiates to bilateral shoulders. Denies nausea, vomiting, or sweating. Denies recent illness, fever or chills. Denies upper respiratory symptoms. 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: No Associated Symptoms: No abdominal pain, No back pain, No diaphoresis, No dizziness; fatigue; No fever/chills, No nausea/vomiting; shortness of breath, we akness Allergies and Home Medications Allergies Coded Allergies: Sulfa (Sulfonamide Antibiotics) (Verified Allergy, Unknown, 07/04/19) Home Medications Amlodipine Besylate 5 Mg Tablet, 5 MG PO DAILY Prescribed by: KING RUSH on 07/04/19 1125 Apixaban 2.5 Mg Tablet, 2.5 MG PO BID Prescribed by: ESTRELLA GRECO on 01/21/19 1013 Aspirin 81 Mg Tablet.dr, 81 MG PO HS, (Reported) Carbidopa/Levodopa 1 Each Tablet, 2 TAB PO TID, (Reported) Cholecalciferol (Vitamin D3) 2,000 Unit Capsule, 2,000 UNIT PO DAILY, (Reported) Diazepam 10 Mg Tablet, 10 MG PO HS PRN for ANXIETY, (Reported) Diclofenac Sodium 50 Mg Tablet.dr, 50 MG PO BID, (Reported) LAST FILLED 11-06-2018 Docusate Sodium 100 Mg Capsule, 200 MG PO DAILY PRN for CONSTIPATION-1ST LINE, (Reported) TAKES 2 (100 MG) CAPSULES Hydrocodone Bit/Acetaminophen 1 Each Tablet, 1 TAB PO Q8H PRN for PAIN-MODERATE, (Reported) Lisinopril 10 Mg Tablet, 10 MG PO DAILY Prescribed by: ESTRELLA GRECO on 01/21/19 1013 Lovastatin 10 Mg Tablet, 10 MG PO HS, (Reported) Metoprolol Succinate 50 Mg Tab.er.24h, 25 MG PO DAILY Prescribed by: OLIVA MOON on 07/04/19 1412 Multivitamin 1 Each Tablet, 1 TAB PO DAILY, (Reported) Ropinirole HCl 1 Mg Tablet, 1 MG PO TID, (Reported) Tramadol HCl 50 Mg Tablet, 50 MG PO Q6H PRN for PAIN-MODERATE, (Reported) Patient Home Medication List Home Medication List Reviewed: Yes Review of Systems Review of Systems Constitutional: see HPI EENTM: No Symptoms Reported Respiratory: See HPI Cardiovascular: See HPI, Chest Pain, Lightheadedness, Palpitations Gastrointestinal: See HPI Genitourinary: No Symptoms Reported Musculoskeletal: no symptoms reported Skin: no symptoms reported All Other Systems Reviewed Negative Unless Noted: Yes Past Dtkxdrv-Mjxokx-Bhjiqh Hx Past Med/Social Hx: Reviewed Nursing Past Med/Soc Hx Patient Social History Alcohol Use: Denies Use Recreational Drug Use: No Smoking Status: Former Smoker Type Used: Cigarettes Former Smoker, Quit: Jun 17, 1999 Recent Hopitalizations: No Immunizations Up To Date Tetanus Booster (TDap): Less than 5yrs PED Vaccines UTD: Yes Date of Pneumonia Vaccine: Feb 20, 2016 Date of Influenza Vaccine: Jun 10, 2019 Seasonal Allergies Seasonal Allergies: Yes Past Medical History Surgeries: Yes Abdominal, Cardiac, Hysterectomy, Orthopedic, Tonsillectomy Respiratory: No Cardiac: Yes Atrial Fibrillation, Heart Attack, Hypertension Neurological: Yes (tremor) Stroke 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 No Pertinent Family Hx Physical Exam Vital Signs Vital Signs - First Documented 11/16/19 07:29 Temp 36.8 Pulse 158 Resp 17 B/P (MAP) 131/109 (116) Pulse Ox 94 O2 Delivery Room Air Capillary Refill : Height, Weight, BMI Height: 5'7.00" Weight: 123lbs. 2.0oz. 55.157529mm; 18.45 BMI Method:Stated General Appearance: WD/WN, Mild Distress, Thin HEENT: PERRL/EOMI, Pharynx Normal Neck: Non Tender, Supple Respiratory: Lungs Clear, Normal Breath Sounds Cardiovascular: Irregularly Irregular, Tachycardia Gastrointestinal: Non Tender, Soft Extremity: Normal Range of Motion, Non Tender Neurologic/Psychiatric: Alert, Oriented x3 Skin: Normal Color, Warm/Dry Progress/Results/Core Measures Results/Orders Lab Results Laboratory Tests Test 11/16/19 07:40 Range/Units White Blood Count 6.9 4.3-11.0 10^3/uL Red Blood Count 5.12 4.35-5.85 10^6/uL Hemoglobin 14.2 11.5-16.0 G/DL Hematocrit 46 35-52 % Mean Corpuscular Volume 89 80-99 FL Mean Corpuscular Hemoglobin 28 25-34 PG Mean Corpuscular Hemoglobin Concent 31 L 32-36 G/DL Red Cell Distribution Width 15.9 H 10.0-14.5 % Platelet Count 270 130-400 10^3/uL Mean Platelet Volume 10.5 H 7.4-10.4 FL Neutrophils (%) (Auto) 52 42-75 % Lymphocytes (%) (Auto) 32 12-44 % Monocytes (%) (Auto) 10 0-12 % Eosinophils (%) (Auto) 5 0-10 % Basophils (%) (Auto) 0 0-10 % Neutrophils # (Auto) 3.6 1.8-7.8 X 10^3 Lymphocytes # (Auto) 2.2 1.0-4.0 X 10^3 Monocytes # (Auto) 0.7 0.0-1.0 X 10^3 Eosinophils # (Auto) 0.4 H 0.0-0.3 10^3/uL Basophils # (Auto) 0.0 0.0-0.1 10^3/uL Prothrombin Time 13.8 12.2-14.7 SEC INR Comment 1.0 0.8-1.4 Activated Partial Thromboplast Time 29 24-35 SEC Sodium Level 142 135-145 MMOL/L Potassium Level 4.0 3.6-5.0 MMOL/L Chloride Level 106 98-107 MMOL/L Carbon Dioxide Level 26 21-32 MMOL/L Anion Gap 10 5-14 MMOL/L Blood Urea Nitrogen 22 H 7-18 MG/DL Creatinine 0.78 0.60-1.30 MG/DL Estimat Glomerular Filtration Rate > 60 BUN/Creatinine Ratio 28 Glucose Level 97 70-105 MG/DL Calcium Level 9.1 8.5-10.1 MG/DL Corrected Calcium 9.1 8.5-10.1 MG/DL Magnesium Level 2.1 1.6-2.4 MG/DL Total Bilirubin 0.4 0.1-1.0 MG/DL Aspartate Amino Transf (AST/SGOT) 19 5-34 U/L Alanine Aminotransferase (ALT/SGPT) < 6 0-55 U/L Alkaline Phosphatase 73 40-136 U/L Myoglobin 58.8 10.0-92.0 NG/ML Troponin I < 0.028 <0.028 NG/ML Total Protein 7.0 6.4-8.2 GM/DL Albumin 4.0 3.2-4.5 GM/DL My Orders Orders - OSMEL PINON MD Cbc With Automated Diff (11/16/19 07:40) Magnesium (11/16/19 07:40) Chest 1 View, Ap/Pa Only (11/16/19 07:40) Ekg Tracing (11/16/19 07:40) Comprehensive Metabolic Panel (11/16/19 07:40) Myoglobin Serum (11/16/19 07:40) Protime With Inr (11/16/19 07:40) Partial Thromboplastin Time (11/16/19 07:40) O2 (11/16/19 07:40) Monitor-Rhythm Ecg Trace Only (11/16/19 07:40) Lipid Panel (11/17/19 06:00) Ed Iv/Invasive Line Start (11/16/19 07:40) Aspirin Chewable Tablet (Baby Aspirin Ch (11/16/19 07:45) Diltiazem Drip Pre-Mix (Cardizem Drip Pr (11/16/19 07:45) Diltiazem Injection (Cardizem Injection) (11/16/19 07:45) Diltiazem Drip Pre-Mix (Cardizem Drip Pr (11/16/19 07:34) Troponin I (11/16/19 07:40) Diltiazem Injection (Cardizem Injection) (11/16/19 07:34) Lactated Ringers (Lr 1000 Ml Iv Solution (11/16/19 07:40) Lactated Ringers (Lr 1000 Ml Iv Solution (11/16/19 08:26) Medications Given in ED Current Medications Medications Dose Ordered Sig/Ysabel Route Start Time Stop Time Status Last Admin Dose Admin Aspirin 324 mg ONCE ONCE PO 11/16/19 07:45 11/16/19 07:46 DC 11/16/19 07:52 324 MG Diltiazem HCl 10 mg ONCE ONCE IVP 11/16/19 07:45 11/16/19 07:46 DC 11/16/19 07:44 10 MG Lactated Ringer's 1,000 ml @ ud STK-MED ONCE IV 11/16/19 07:40 11/16/19 07:59 DC 11/16/19 07:49 1,000 MLS/HR Lactated Ringer's 1,000 ml @ STK-MED ONCE IV 11/16/19 08:26 11/16/19 08:35 DC 11/16/19 08:37 1,000 MLS/HR Vital Signs/I&O 11/16/19 11/16/19 07:29 08:00 Temp 36.8 Pulse 158 Resp 17 B/P (MAP) 131/109 (116) Pulse Ox 94 92 O2 Delivery Room Air Room Air Progress Progress Note : Progress Note Seen and evaluated. IV, labs, EKG, chest x-ray, ASA 162 mg by mouth ordered. Cardizem bolus at 10 mg IV and drip of 10 mg per hour initiated. Patient's blood pressure declined to low 90s systolic. LR 1 L bolus initiated. Blood pressure improved to upper 90s but heart rate still 1 teens to 120s. Increase Cardizem drip to 15 mg an hour. Monitor patient. 0923: Patient's still having varying blood pressures but heart rate has declined to low 100s. Patient to be admitted to the ICU, inpatient status. I did discuss the case with Dr. Allen and she accepts patient for admission, inpatient status. She will write orders and consult cardiology she is greatly appreciated. Patient otherwise doing better at this point. Initial ECG Impression Date: Nov 16, 2019 Initial ECG Impression Time: 07:43 Initial ECG Rate: 145 Initial ECG Rhythm: A Fib/Flutter Initial ECG Impression: Atrial Fibrillation w/RVR Initial ECG Comparisson: Changed (07/04/19 A. fib at normal rate.) Comment Atrial fibrillation with rapid ventricular rate. LVH noted. Normal axis. No evidence of ST elevation AK. Interpreted by me. Diagnostic Imaging Diagonstic Imaging: Xray Plain Films/CT/US/NM/MRI: chest Comments [facility] [place], [place] NAME: JM KRAMER [facility] REC#: [id number] PT STATUS: REG ER : 1935 PHYSICIAN: OSMEL PINON MD ADMIT DATE: 11/16/19/ER Draft Date of Exam:11/16/19 CHEST 1 VIEW, AP/PA ONLY EXAMINATION: Portable erect AP chest at 8:25 AM. INDICATION: Chest pain. FINDINGS: The cardiomegaly noted on the prior exam of 07/04/2019 is again evident and not significantly changed. The lungs are clear. There is no sign of failure, pneumonia, or pleural effusion to indicate an acute abnormality. The mediastinum is not widened. The total shoulder prosthesis on the left and the fracture of the proximal right humerus seen previously are again evident and essentially unchanged. Post kyphoplasty changes are also seen at the thoracolumbar junction. IMPRESSION: There is cardiomegaly but there is no evidence for an acute abnormality. Dictated on workstation # [id number] Dict: 11/16/19 0835 Trans: 11/16/19 0838 [id number] Interpreted by: HAELIGH PIZANO MD Electronically signed by: Departure Communication (Admissions) Time/Spoke to Admitting Phy: 09:23 Impression Primary Impression: Atrial fibrillation with RVR Disposition: ADMITTED INPATIENT Condition: Critical Admissions Decision to Admit Reason: Admit from ER (General) Decision to Admit/Date: Nov 16, 2019 Time/Decision to Admit Time: 09:23 Departure-Patient Inst. Referrals: NO,LOCAL PHYSICIAN (PCP/Family) Primary Care Physician OSMEL PINON MD Nov 16, 2019 08:17
--- NOTE | 2019-11-16 08:39 | Diagnostic Imaging Report ---
EXAMINATION: Portable erect AP chest at 8:25 AM. INDICATION: Chest pain. FINDINGS: The cardiomegaly noted on the prior exam of 07/04/2019 is again evident and not significantly changed. The lungs are clear. There is no sign of failure, pneumonia, or pleural effusion to indicate an acute abnormality. The mediastinum is not widened. The total shoulder prosthesis on the left and the fracture of the proximal right humerus seen previously are again evident and essentially unchanged. Post kyphoplasty changes are also seen at the thoracolumbar junction. IMPRESSION: There is cardiomegaly but there is no evidence for an acute abnormality. Dictated by: Dictated on workstation # [id number]
[2019-11-16] MEDS ORDERED: MELATONIN 3 MG TABLET PO PRN (09:30)
[2019-11-16] MEDS ORDERED: ONDANSETRON 4 MG/2 ML (SDV) Z0FRAN IV PRN (09:30)
[2019-11-16] MEDS ORDERED: ACETAMINOPHEN 325 MG TABLET PO PRN (09:30)
[2019-11-16] MEDS ORDERED: polyethylene glycoL POWDER 17 GM (MIRALAX) PACK PO PRN (09:30)
[2019-11-16] MEDS ORDERED: MILK OF MAGNESIA 400 MG/5 ML 30 ML UDC PO PRN (09:30)
--- NOTE | 2019-11-16 09:41 | Consultation-Cardiology ---
HPI-Cardiology Cardiology Consultation Date of Consultation 11/16/19 Date of Admission Time Seen by Provider: 09:36 Indication: palpitation HPI 84-year-old lady with history of coronary artery disease mild to moderate nonobstructive disease, paroxysmal atrial fibrillation, hypertension and Dick's palsy. Patient started to have palpitation and rapid heartrate, came into the hospital for evaluation noted to be in atrial fibrillation with rapid ventricular response, she was given bolus of Cardizem and started on Cardizem drip subsequently she became severely hypotensive. Given IV fluid and the drip was decreased and her blood pressure has recovered but she is still borderline tachycardic. Denied any syncope but felt some chest discomfort and shortness of breath in addition to the palpitation. Home Medications & Allergies Allergies: Coded Allergies: Sulfa (Sulfonamide Antibiotics) (Verified Allergy, Unknown, 07/04/19) Home Medication List Reviewed: Yes MUS-Dvtuel-Sjrmew Hx Patient Social History Marital Status: Alcohol Use: Denies Use Recreational Drug Use: No Smoking Status: Former Smoker Type Used: Cigarettes Recent Foreign Travel: No Recent Infectious Disease Expo: No Recent Hopitalizations: No Immunizations Up To Date Tetanus Booster (TDap): Less than 5yrs Date of Pneumonia Vaccine: Feb 20, 2016 Date of Influenza Vaccine: Jun 10, 2019 Past Medical History Discussed below Family Medical History Significant Family History: No Pertinent Family Hx Family Medical Hx Noncontributory Family History: Patient reports no known family medical history. Review of Systems-General Review of Systems Constitutional: see HPI, malaise EENTM: see HPI, no symptoms reported Respiratory: see HPI; No cough; dyspnea on exertion; No hemoptysis, No orthopnea, No phlegm; short of breath; No stridor, No wheezing, No other Cardiovascular: see HPI; No chest pain, No edema, No Hx of Intervention; palpitations; No syncope, No vascular heart diseas, No other Gastrointestinal: no symptoms reported, see HPI Genitourinary: no symptoms reported, see HPI Musculoskeletal: no symptoms reported, see HPI Skin: no symptoms reported, see HPI Psychiatric/Neurological: No Symptoms Reported, See HPI All Other Systems Reviewed Negative Unless Noted: Yes Reviewed Test Results Reviewed Test Results Lab Laboratory Tests Test 11/16/19 07:40 Range/Units White Blood Count 6.9 4.3-11.0 10^3/uL Red Blood Count 5.12 4.35-5.85 10^6/uL Hemoglobin 14.2 11.5-16.0 G/DL Hematocrit 46 35-52 % Mean Corpuscular Volume 89 80-99 FL Mean Corpuscular Hemoglobin 28 25-34 PG Mean Corpuscular Hemoglobin Concent 31 L 32-36 G/DL Red Cell Distribution Width 15.9 H 10.0-14.5 % Platelet Count 270 130-400 10^3/uL Mean Platelet Volume 10.5 H 7.4-10.4 FL Neutrophils (%) (Auto) 52 42-75 % Lymphocytes (%) (Auto) 32 12-44 % Monocytes (%) (Auto) 10 0-12 % Eosinophils (%) (Auto) 5 0-10 % Basophils (%) (Auto) 0 0-10 % Neutrophils # (Auto) 3.6 1.8-7.8 X 10^3 Lymphocytes # (Auto) 2.2 1.0-4.0 X 10^3 Monocytes # (Auto) 0.7 0.0-1.0 X 10^3 Eosinophils # (Auto) 0.4 H 0.0-0.3 10^3/uL Basophils # (Auto) 0.0 0.0-0.1 10^3/uL Prothrombin Time 13.8 12.2-14.7 SEC INR Comment 1.0 0.8-1.4 Activated Partial Thromboplast Time 29 24-35 SEC Sodium Level 142 135-145 MMOL/L Potassium Level 4.0 3.6-5.0 MMOL/L Chloride Level 106 98-107 MMOL/L Carbon Dioxide Level 26 21-32 MMOL/L Anion Gap 10 5-14 MMOL/L Blood Urea Nitrogen 22 H 7-18 MG/DL Creatinine 0.78 0.60-1.30 MG/DL Estimat Glomerular Filtration Rate > 60 BUN/Creatinine Ratio 28 Glucose Level 97 70-105 MG/DL Calcium Level 9.1 8.5-10.1 MG/DL Corrected Calcium 9.1 8.5-10.1 MG/DL Magnesium Level 2.1 1.6-2.4 MG/DL Total Bilirubin 0.4 0.1-1.0 MG/DL Aspartate Amino Transf (AST/SGOT) 19 5-34 U/L Alanine Aminotransferase (ALT/SGPT) < 6 0-55 U/L Alkaline Phosphatase 73 40-136 U/L Myoglobin 58.8 10.0-92.0 NG/ML Troponin I < 0.028 <0.028 NG/ML Total Protein 7.0 6.4-8.2 GM/DL Albumin 4.0 3.2-4.5 GM/DL Physical Exam Physical Exam Vital Signs Vital Signs - First Documented 11/16/19 07:29 Temp 36.8 Pulse 158 Resp 17 B/P (MAP) 131/109 (116) Pulse Ox 94 O2 Delivery Room Air Capillary Refill : Less Than 3 Seconds Height, Weight, BMI Height: 5'7.00" Weight: 123lbs. 2.0oz. 55.612052ia; 19.00 BMI Method:Stated General Appearance: WD/WN, Mild Distress, Thin Eyes: Bilateral Eye Normal Inspection, Bilateral Eye PERRL, Bilateral Eye EOMI HEENT: PERRL/EOMI, Pharynx Normal Neck: Non Tender, Supple Respiratory: Lungs Clear, Normal Breath Sounds Cardiovascular: Systolic Murmur, Irregularly Irregular, Tachycardia Gastrointestinal: Non Tender, Soft Back: Normal Inspection, No CVA Tenderness, No Vertebral Tenderness Extremity: Normal Range of Motion, Non Tender Neurologic/Psychiatric: Alert, Oriented x3 Skin: Normal Color, Warm/Dry Lymphatic: No Adenopathy A/P-Cardiology Admission Diagnosis Paroxysmal atrial fibrillation Coronary artery disease Hypotension Hyperlipidemia Assessment/Plan Paroxysmal atrial fibrillation, has been maintained on Eliquis and metoprolol, went back to atrial fibrillation with rapid ventricular response, did not tolerate aggressive Cardizem drip. Patient is admitted and will be monitored I will start her on sotalol and will consider cardioversion if she did not convert by herself. Coronary artery disease, had cardiac catheterization done in January 2019 showing tortuous carotid system with nonobstructive disease, the procedure was repeated by Dr. Khalil in June 2019 after having elevated troponin and also showed tortuous coronary with nonobstructive disease. We'll continue monitoring. History of labile hypertension, has been having elevated blood pressure at home. Currently he had a drop in her blood pressure with a Cardizem bolus and a drip. Continue to monitor closely History of hyperlipidemia, monitor lipids, continue on lovastatin History of Dick's palsy History of Parkinson's. Nonobstructive carotid artery stenosis per carotid duplex done 2016. We'll reevaluate carotid duplex today. Clinical Quality Measures AMI/AHF: ASA po Prior to arrival: Yes ESTRELLA GRECO MD Nov 16, 2019 09:41
[2019-11-16] MEDS ORDERED: SOTALOL 80 MG (BETAPACE) TAB PO SCH (09:45)
--- OUTSIDE RECORDS SUMMARY | 2019-11-16 10:01 | XMS REPORT | Continuity of Care Document ---
Author Organization Unknown Address Unknown Phone Unavailable Allergies Active Description Code Type Severity Reaction Onset Reported/Identified Relationship to Patient Clinical Status Yes Sulfa (Sulfonamide Antibiotics) [id number] Drug Allergy Unknown N/A 020 Medications [...] FOR MALIGNANT NE 05/23/2016 CARLA HIRSCH R DYNAMICS AX CONSULTANT Ot R25.1 TREMOR, UNSPECIFIED 05/24/2016 Ot V76.12 [...] 05/24/2016 SHILOH PINO, ROULA Arce Ot M81.0 AGE- RELATED OSTEOPOROSIS W/O CURRENT PAT 05/24/2016 SHILOH PINO, ROULA Arce Ot Z12.31 ENCNTR SCREEN MAMMOGRAM FOR MALIGNANT NE 05/24/2016 SNCARLA OH DYNAMICS AX CONSULTANT Ot R25.1 TREMOR, UNSPECIFIED 06/14/2016 SNCARLA OH DYNAMICS AX CONSULTANT Ot R25.1 TREMOR, UNSPECIFIED 06/20/2016 SNCARLA OH DYNAMICS AX CONSULTANT Ot R25.1 TREMOR, UNSPECIFIED 06/21/2016 WILLIE DO [...] FOR MALIGNANT NE 06/19/2018 CARLA HIRSCH R DYNAMICS AX CONSULTANT Ot R25.1 TREMOR, UNSPECIFIED 06/19/2018 SHREE DELVALLE [...] GILBERTO ESPOSITO DO Ot Y92.002 BATHRM OF [facility] NON-INSTITUT RESDNCE SNGL 12/14/2018 GILBERTO ESPOSITO DO Ot Z79.82 CORRECTION (CURRENT) USE OF ASPIRIN 12/14/2018 GILBERTO ESPOSITO [...] GILBERTO ESPOSITO DO Ot Y92.002 BATHRM OF [facility] NON-INSTITUT RESDNCE SNGL 12/16/2018 GILBERTO ESPOSITO DO Ot Z79.82 CORRECTION (CURRENT) USE OF ASPIRIN 12/16/2018 GILBERTO ESPOSITO [...] 01/21/2019 WILL CHILDS MD Ot Z79. 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 10 ATHSCL HEART DISEASE OF [place] CORONARY 01/21/2019 WILL CHILDS MD Ot I48. [...] 01/21/2019 WILL CHILDS MD Ot Z79. 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 (CURRENT) USE OF ANTICOAGULANT 07/06/2019 NAPOLEON GALLEGOS [...] On G0008 FLU ADMINISTRATION (MEDICARE ONLY) 04/06/2013 [id number] ME ASURE OF CARDIAC SAMPL PRESSURE, L H 01/21/2019 [id number] FL UOROSCOPY OF MULT COR ART USING L OSM 01/21/2019 [id number] FL UOROSCOPY OF LEFT HEART USING LOW OSMO 01/21/2019 [id number] FL UOROSCOPY OF ABDOMINAL AORTA USING LOW 01/21/2019 [id number] ME ASURE OF CARDIAC SAMPL PRESSURE, L H 07/05/2019 [id number] FL UOROSCOPY OF MULT COR ART USING L OSM 07/05/2019 [id number] FL UOROSCOPY OF LEFT HEART USING LOW OSMO 07/05/2019 [id number] FL UOROSCOPY OF THORACIC AORTA USING LOW [...] culture - 06/20/16 11:45 Bacterial urine culture [id number] NRG COLONY COUNT <10,000 NRG FTX;REPORTABLE SENSITIVITY [...] calculation of estimated glomerular filtration rate > [facility] [place] Serum or plasma glucose measurement (mass/volume) 94 mg/dL 70-105 Serum or plasma calcium measurement (mass/volume) 9.0 mg/dL 8.5-10.1 Serum or plasma total bilirubin measurement (mass/volu me) 0.6 mg/dL 0.1-1.0 Serum or plasma alkaline phosphatase kem surement (enzymatic activity/volume) 85 U/L 40-136 Serum [...] Complaint KSWebIZ 06/08/2014 09:49:53 ACT Document Registration [id number] 04/06/2013 16:39:00 04/06/2013 23:59: 59 CLS Outpatient KRISTIN BLAKE TARA Mario [id number] 07/04/2019 12:35:00 020 13:25:00 DIS Inpatient ROSY PINO, NAPOLEON Denis [facility] 4TH CHEST PAIN,ELEV ATED TROPONIN,HYPERTENSION,HYPOXIA [id number] 01/20/2019 11:42:00 16:40:00 DIS Inpatient AMADEO PINO, WILL Denis [facility] 4TH AFIB W RVR,CP [id number] 12/13/2018 22:30:00 01:59:00 DIS Emergency VAIBHAV GILBERTO BLAKE a [facility] ER RT ARM INJURY [id number] 11/26/2018 08:03:00 23:59:59 CLS Outpatient SHREE DELVALLE MD [facility] RAD ABN MAMMO [id number] 10/17/2018 11:53:00 23:59:59 CLS Outpatient OSMEL LINDA DC [facility] RAD ACUTE LOW BACK PAIN [id number] 06/19/2018 14:33:00 23:59:59 CLS Outpatient SHREE DELVALLE MD [facility] RAD SCREENING [id number] 04/03/2017 10:15:00 23:59:59 CLS Preadmit OTHER, UNLISTED [facility] RAD SCREENING [id number] 06/20/2016 14:25:00 017 14:37:00 DIS Inpatient FLORENCIA TAPIA DO, V [facility] ICU CVA UTI [id number] 05/22/2016 13:39:00 016 23:59:59 CLS Outpatient CARLA HIRSCH R DYNAMICS AX CONSULTANT [facility] RAD TREMORS [id number] 07/28/2015 10:50:00 016 23:59:59 CLS Outpatient ROULA MATAMOROS MD, [facility] RAD SCREENING [id number] 06/08/2014 09:49:00 014 23:59:59 CLS Outpatient ADAM JON [facility] RAD SCREENING [id number] 10/02/2013 12:41:00 014 23:59:59 CLS Outpatient [id number] 07/17/2013 11:18:00 014 23:59:59 CLS Outpatient NAPOLEON GALLEGOS MD [facility] RAD SCREENING,KYPHO SEOLOSIS [id number] 05/25/2013 14:26:00 23:59:59 CLS Outpatient NAPOLEON GALLEGOS MD [facility] RAD SCREENING [id number] 06/08/2014 09:48:00 Document Registration [id number] 07/09/2012 07:55:00 Document Registration [id number] 05/14/2012 15:02:00 Document Registration [id number] 01/10/2012 10:34:00 Document Registration [id number] 01/09/2012 14:20:00 Document Registration [id number] 09/20/2011 10:45:00 Document Registration [id number] 05/07/2011 08:48:00 Document Registration [id number] 05/05/2010 09:32:00 Document Registration [id number] 05/04/2009 13:33:00 Document Registration [id number] 01/12/2009 13:36:00 Document Registration [id number] 12/20/2008 09:09:00 Document Registration
[2019-11-16] MEDS: NS IV 1000 ML 1,000 ML IV SCH ×2 (10:04→17:59)
--- NOTE | 2019-11-16 10:10 | NUR ---
MJ KRAMER Janice admitted to room CU5-1, with an admitting diagnosis of aFIB, on 11/16/19 from ID via CART, accompanied by STAFF.MJ KRAMER introduced to surroundings, call light, bed controls, phone, TV, temperature control, lights, meal times, smoking policy, visitor policy, side rail policy, bathrooms and showers. Patient Rights given to patient in the handbook. MJ KRAMER verbalizes understanding that [facility] is not responsible for the loss or damage to any personal effects or valuables that are kept in the patients posession during their hospitalization. The following Patient Care Plans were discussed with the PT: Discharge Planning. MJ KRAMER verbalizes understanding of Interdisciplinary Patient Education. Patient and/or family were informed about the Rapid Response Team and its purpose.
[2019-11-16] MEDS ORDERED: AMIODARONE FOR BOLUS 150 MG in D5W 100 ML IVPB 100 ML IV NR (11:45)
[2019-11-16] MEDS: SINEMET 25/100 (CARBIDOPA/LEVODOPA) TAB PO SCH ×2 (12:09→17:59)
[2019-11-16] MEDS: AMIODARONE INJECTION 450 MG in D5W IV SOLUTION (EXCEL) 250 ML IV SCH ×2 (12:22→20:05)
--- NOTE | 2019-11-16 12:46 | History & Physical-Hospitalist ---
History of Present Illness HPI/Chief Complaint Pt is an 84yoCF with a PMH of pAF, HTN, CAD who presented to the ER due to high heart rate. She states that she has a known history of a-fib for which she follows with Dr Kaplan. She awoke this morning at 530am with chest tightness and checked her pulse and found it to be 178. She attempted to wait it out but when it didn't get better she decided to seek evaluation in the ER. She was confirmed to be in a-fib with RVR here and started on a cardizem gtt. She then developed hypotension and her cardizem gtt was decreased. Her rate remained in the low 100s while she was in the ER and she was admitted for this. Source: patient Date Seen 11/16/19 Time Seen by a Provider: 12:50 Attending Physician Kriss Allen MD PCP No,Local Physician Referring Physician Date of Admission Nov 16, 2019 at 09:24 Home Medications & Allergies Home Medications Reviewed patient Home Medication Reconciliation performed by pharmacy medication reconciliations formula technician and/or nursing. Patients Allergies have been reviewed. Allergies Allergies Coded Allergies Sulfa (Sulfonamide Antibiotics) (Verified Allergy, Unknown, 07/04/19) Past Rqgewxl-Chmdzr-Awybrr Hx Past Med/Social Hx: Reviewed Nursing Past Med/Soc Hx Patient Social History Marrital Status: Alcohol Use: Denies Use Recreational Drug Use: No Smoking Status: Former Smoker Former Smoker, Quit: Jun 17, 1999 Type Used: Cigarettes Recent Foreign Travel: No Contact w/other who traveled: No Recent Hopitalizations: No Recent Infectious Disease Expo: No Immunizations Up To Date Tetanus Booster (TDap): Less than 5yrs Pediatric: Yes Date of Pneumonia Vaccine: Feb 20, 2016 Date of Influenza Vaccine: Jun 10, 2019 Seasonal Allergies Seasonal Allergies: Yes Past Medical History Surgeries: Abdominal, Cardiac, Hysterectomy, Orthopedic, Tonsillectomy Cardiac: Atrial Fibrillation, Heart Attack, Hypertension Neurological: Stroke Reproductive: No Sexually Transmitted Disease: No Hysterectomy, Menopausal Musculoskeletal: Degenerate Disk Disease, Arthritis, Chronic Back Pain Psychosocial: Anxiety History of Blood Disorders: No Family History Reviewed Nursing Family Hx Patient reports no known family medical history. No Pertinent Family Hx Review of Systems Constitutional: No chills, No diaphoresis, No fever, No weakness EENTM: no symptoms reported Respiratory: No dyspnea on exertion, No short of breath Cardiovascular: see HPI, chest pain; No edema; palpitations Gastrointestinal: no symptoms reported Genitourinary: no symptoms reported Musculoskeletal: no symptoms reported Skin: no symptoms reported Psychiatric/Neurological: No Symptoms Reported Physical Exam Physical Exam Vital Signs Vital Signs - First Documented 11/16/19 11/16/19 07:29 10:05 Temp 36.8 Pulse 158 Resp 17 B/P (MAP) 131/109 (116) Pulse Ox 94 O2 Delivery Room Air O2 Flow Rate 1.00 Capillary Refill : Less Than 3 Seconds Height, Weight, BMI Height: 5'7.00" Weight: 123lbs. 2.0oz. 55.204204jv; 19.00 BMI Method:Stated General Appearance: No Apparent Distress, Thin HEENT: PERRL/EOMI, Moist Mucous Membranes; No Scleral Icterus (L), No Scleral Icterus (R) Neck: Normal Inspection, Supple Respiratory: Lungs Clear, No Accessory Muscle Use, No Respiratory Distress Cardiovascular: No JVD, Irregularly Irregular, Tachycardia Gastrointestinal: Normal Bowel Sounds, Non Tender, Soft Extremity: No Calf Tenderness, No Pedal Edema Neurologic/Psychiatric: Alert, Oriented x3, Normal Mood/Affect Skin: Normal Color, Warm/Dry Results Results/Procedures Labs Laboratory Tests 11/16/19 07:40 Patient resulted labs reviewed. Imaging: Reviewed Imaging Report Assessment/Plan Admission Diagnosis A-fib with RVR Admission Status: Inpatient Order (span 2 midnights) Reason for Inpatient Admission: IV cardizem and amiodarone Assessment and Plan A-fib with RVR CAD HTN Cardiology consulted, appreciate recs Continue amiodarone gtt Echo from June shows preserved EF and grade 1 diastolic dysfunction Monitor on telemetry BP improved, trend Continue Eliquis from stroke ppx Parkinson's Disease Continue Sinemet DVT PPX: already on Eliquis Clinical Quality Measures AMI/AHF: ASA po Prior to arrival: Yes DVT/VTE Risk/Contraindication: Risk Factor Score Per Nursin RFS Level Per Nursing on Admit: 2=Moderate KRISS ALLEN MD Nov 16, 2019 12:46
--- NOTE | 2019-11-16 12:54 | NUR ---
Pt converted to sinus rhythm at this time. Dr. Kaplan notified and new orders received.
[2019-11-16] MEDS ORDERED: MTP25TSR PO (14:35)
[2019-11-16] MEDS ORDERED: LISI-552 PO (14:35)
[2019-11-16] MEDS ORDERED: APIX2.5T PO (14:35)
[2019-11-16] MEDS ORDERED: CHOL20002 PO (14:36)
[2019-11-16] MEDS ORDERED: CYAN-23 PO (14:38)
[2019-11-16] MEDS ORDERED: PANT40TA3 PO (14:38)
[2019-11-16] MEDS ORDERED: CYAN500T62 PO (14:38)
[2019-11-16] MEDS ORDERED: AMLO5TAB9 PO (14:38)
[2019-11-16] MEDS ORDERED: HYDR-3820 PO (14:40)
[2019-11-16] MEDS ORDERED: BETA1TAB15 PO (14:40)
--- NOTE | 2019-11-16 15:42 | NUR ---
SPOKE WITH THE PT (SHE HAD A MED LIST THAT I PUT ON HER CHART) AND WENT THRU THE EXT MED HISTORY TO COMPLETE THE MED REC THE ONLY DISCREPANCY FROM THE EXT MED HISTORY IS LISINOPRIL 20MG THE DIRECTIONS ARE 1 TAB DAILY HOWEVER THE PT SAID SHE WAS TOLD BY HER DR TO START TAKING 2 TABS DAILY ABOUT 2 WEEKS AGO. OTC MEDS: VIT B12 PRESERVISION ASPIRIN 81 VIT D STOOL SOFTENER
[2019-11-16] MEDS ORDERED: NON-FORMULARY MEDICATION 1 EA EA (Diazepam 10 MG) PO PRN (16:45)
[2019-11-16] MEDS ORDERED: PANTOPRAZOLE 40 MG (PROTONIX) TAB PO PRN (16:45)
[2019-11-16] MEDS ORDERED: HYDROcodone/APAP 10 MG/325 MG (LORTAB) TAB PO PRN (16:45)
[2019-11-16] MEDS ORDERED: DIAZEPAM 5 MG (VALIUM) TABLET PO PRN (17:00)
[2019-11-16] MEDS: rOPINIRole 1 MG (REQUIP) TABLET PO SCH (20:06)
[2019-11-16] MEDS: APIXABAN 2.5 MG (ELIQUIS) TABLET PO SCH (20:06)
[2019-11-16] MEDS: DOCUSATE SODIUM 100 MG (COLACE) CAP PO SCH (20:06)
[2019-11-16] MEDS ORDERED: SIMvastatin 10 MG (ZOCOR) TAB PO SCH (21:00)
[2019-11-16] MEDS ORDERED: NON-FORMULARY MEDICATION 1 EA EA (Lovastatin 10 MG) PO SCH (21:00)
[2019-11-16] MEDS ORDERED: APIXABAN 5 MG (ELIQUIS) TABLET PO SCH (21:00)
[2019-11-16] MEDS ORDERED: NON-FORMULARY MEDICATION 1 EA EA (Diclofenac Sodium 50 MG) PO SCH (21:00)
[2019-11-16] MEDS ORDERED: APIXABAN 2.5 MG (ELIQUIS) TABLET PO SCH (21:00)
[2019-11-17] VITALS (10 sets, daily range): BP systolic 128–173; BP diastolic 75–94
[2019-11-17] MEDS: NS IV 1000 ML 1,000 ML IV SCH ×2 (02:13→02:25)
[2019-11-17 03:15] LABS: HEMOGLOBIN 11.6 G/DL (11.5-16.0); MEAN PLATELET VOLUME 10.4 FL (7.4-10.4); WHITE BLOOD COUNT 5.9 10^3/uL (4.3-11.0)
[2019-11-17 03:37] LABS: BUN/CREATININE RATIO 18; CALCIUM 8.2 MG/DL (8.5-10.1); CARBON DIOXIDE 27 MMOL/L (21-32); CHLORIDE 112 MMOL/L (98-107); CHOLESTEROL 120 MG/DL (< 200); CREATININE SERUM 0.66 MG/DL (0.60-1.30); GFR ESTIMATED > 60; GLUCOSE 99 MG/DL (70-105); HDL CHOLESTEROL 51 MG/DL (40-60); POTASSIUM 3.6 MMOL/L (3.6-5.0); SODIUM 145 MMOL/L (135-145); TRIGLYCERIDES 64 MG/DL (<150); VLDL CHOLESTEROL 13 MG/DL (5-40)
[2019-11-17 04:16] LABS: MAGNESIUM 1.7 MG/DL (1.6-2.4)
--- NOTE | 2019-11-17 05:00 | Pulmonary Consultation ---
History of Present Illness History of Present Illness Date Seen by Provider: Nov 17, 2019 Time Seen by Provider: 04:57 Date of Admission Reason for Visit: palpitation Allergies and Home Medications Allergies Coded Allergies: Sulfa (Sulfonamide Antibiotics) (Verified Allergy, Unknown, hives, 11/16/19) Home Medications Amlodipine Besylate 5 Mg Tablet, 5 MG PO DAILY, (Reported) Apixaban 2.5 Mg Tablet, 2.5 MG PO BID, (Reported) Aspirin 81 Mg Tablet.dr, 81 MG PO HS, (Reported) Carbidopa/Levodopa 1 Each Tablet, 2 EA PO TID, (Reported) Cholecalciferol (Vitamin D3) 50 Mcg Capsule, 50 MCG PO DAILY, (Reported) Cyanocobalamin (Vitamin B-12) 1,000 Mcg Capsule, 2,000 MCG PO DAILY, (Reported) Diazepam 10 Mg Tablet, 10 MG PO HS PRN for ANXIETY, (Reported) Diclofenac Sodium 50 Mg Tablet.dr, 50 MG PO BID, (Reported) Docusate Sodium 100 Mg Capsule, 200 MG PO BID, (Reported) TAKES 2 (100 MG) CAPSULES Hydrocodone/Acetaminophen 1 Each Tablet, 1-2 EA PO Q4 -6H PRN for PAIN-MODERATE (5-7), (Reported) Lisinopril 20 Mg Tablet, 40 MG PO DAILY, (Reported) TAKES 2 (20MG) TABS Lovastatin 10 Mg Tablet, 10 MG PO HS, (Reported) Metoprolol Succinate 25 Mg Tab.er.24h, 25 MG PO DAILY, (Reported) Pantoprazole Sodium 40 Mg Tablet.dr, 40 MG PO DAILY PRN for HEARTBURN, (Reported) Ropinirole HCl 1 Mg Tablet, 1 MG PO TID, (Reported) Tramadol HCl 50 Mg Tablet, 50 MG PO Q6H PRN for PAIN-MODERATE, (Reported) Vit A/Vit C/Vit E/Zinc/Copper 1 Each Tablet, 1 EACH PO BID, (Reported) Past Cmignxb-Litweh-Tvbwcl Hx Past Med/Social Hx: Reviewed Nursing Past Med/Soc Hx Patient Social History Alcohol Use: Denies Use Recreational Drug Use: No Smoking Status: Former Smoker Type Used: Cigarettes Former Smoker, Quit: Jun 17, 1999 Recent Foreign Travel: No Contact w/Someone Who Travel: No Recent Infectious Disease Expo: No Recent Hopitalizations: No Immunizations Up To Date Tetanus Booster (TDap): Less than 5yrs PED Vaccines UTD: Yes Date of Pneumonia Vaccine: Feb 20, 2016 Date of Influenza Vaccine: Jun 10, 2019 Seasonal Allergies Seasonal Allergies: Yes Past Medical History Surgeries: Yes Abdominal, Cardiac, Hysterectomy, Orthopedic, Tonsillectomy Respiratory: No Cardiac: Yes Atrial Fibrillation, Heart Attack, Hypertension Neurological: Yes (tremor) Stroke 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 No Pertinent Family Hx Review of Systems Time Seen by Provider: 04:59 Sepsis Event Evaluation Height, Weight, BMI Height: 5'7.00" Weight: 123lbs. 2.0oz. 55.816199ed; 19.00 BMI Method:Stated Exam Exam Vital Signs Date Time Temp Pulse Resp B/P (MAP) Pulse Ox O2 Delivery O2 Flow Rate FiO2 11/17/19 00:00 Nasal Cannula 2.00 11/17/19 00:00 36.9 11/16/19 23:00 49 16 121/67 (85) 96 Nasal Cannula 1.00 11/16/19 22:00 54 20 143/88 (106) 95 Nasal Cannula 1.00 11/16/19 21:00 45 21 139/65 (89) 96 Nasal Cannula 1.00 11/16/19 20:00 49 9 135/76 (95) Nasal Cannula 1.00 11/16/19 20:00 37.0 11/16/19 20:00 Nasal Cannula 2.00 11/16/19 19:00 52 25 130/71 (90) Nasal Cannula 1.00 11/16/19 19:00 52 11/16/19 18:00 55 14 139/91 (107) Nasal Cannula 1.00 11/16/19 17:00 49 20 140/81 (100) Nasal Cannula 1.00 11/16/19 16:00 36.0 11/16/19 16:00 46 9 106/60 (75) 100 Nasal Cannula 1.00 11/16/19 15:31 Nasal Cannula 2.00 11/16/19 15:00 50 13 100/62 (75) 99 Nasal Cannula 1.00 11/16/19 14:00 54 15 98/58 (71) 97 Nasal Cannula 1.00 11/16/19 13:14 Nasal Cannula 1.00 11/16/19 13:00 58 13 98/60 (73) 93 Nasal Cannula 1.00 11/16/19 13:00 66 11/16/19 12:09 84 116/69 11/16/19 12:00 Nasal Cannula 2.00 11/16/19 12:00 77 13 116/69 (85) 95 Nasal Cannula 1.00 11/16/19 12:00 36.8 11/16/19 11:00 109 27 153/76 (101) 96 Nasal Cannula 1.00 11/16/19 10:20 96 Nasal Cannula 1.00 11/16/19 10:15 121 11/16/19 10:15 114 23 90/78 (82) 96 Nasal Cannula 1.00 11/16/19 10:05 36.6 100 25 106/90 (95) 92 Nasal Cannula 1.00 11/16/19 10:00 130 14 94/55 94 Nasal Cannula 2.00 11/16/19 08:00 92 Room Air 11/16/19 07:29 36.8 158 17 131/109 (116) 94 Room Air I & O 11/17/19 07:00 Intake Total 4159 ml Output Total 1850 ml Balance 2309 ml Height & Weight Height: 5'7.00" Weight: 123lbs. 2.0oz. 55.228338tm; 19.00 BMI Method:Stated General Appearance: No Apparent Distress, Thin HEENT: PERRL/EOMI, Moist Mucous Membranes; No Scleral Icterus (L), No Scleral Icterus (R) Neck: Normal Inspection, Supple Respiratory: Lungs Clear, No Accessory Muscle Use, No Respiratory Distress Cardiovascular: No JVD, Irregularly Irregular, Tachycardia Capillary Refill: Less Than 3 Seconds Extremity: No Calf Tenderness, No Pedal Edema Neurologic/Psychiatric: Alert, Oriented x3, Normal Mood/Affect Skin: Normal Color, Warm/Dry Lymphatic: No Adenopathy Results Lab Laboratory Tests 11/16/19 07:40 11/17/19 02:45 Assessment/Plan Assessment/Plan A-fib s/p RVR - currently controlled with ammio -Cardiology following Hypokalemia/hypomag -replace CAD HTN Parkinson's Disease Continue Sinemet DVT PPX: already on NICK Hayden DO Nov 17, 2019 05:00
[2019-11-17] MEDS: POTASSIUM CL 10MEQ/50ML IVPB 50 ML IV SCH ×2 (05:13→06:13)
[2019-11-17] MEDS: MAGNESIUM 1 GM/100 ML IVPB 100 ML IV SCH ×2 (05:13→06:13)
[2019-11-17] MEDS ORDERED: KCL 20 MEQ TAB (K-DUR) PO SCH (06:00)
[2019-11-17] MEDS ORDERED: POTASSIUM CL 10MEQ/50ML IVPB 50 ML IV SCH (06:00)
[2019-11-17] MEDS ORDERED: MAGNESIUM 1 GM/100 ML IVPB 100 ML IV SCH (06:00)
[2019-11-17] MEDS: dilTIAZem DRIP PRE-MIX 125 ML IV SCH ×2 (07:49→07:50)
[2019-11-17] MEDS ORDERED: ETODOLAC 200 MG (LODINE) CAP PO SCH (08:00)
[2019-11-17] MEDS: DOCUSATE SODIUM 100 MG (COLACE) CAP PO SCH (08:10)
[2019-11-17] MEDS: APIXABAN 2.5 MG (ELIQUIS) TABLET PO SCH (08:10)
[2019-11-17] MEDS: rOPINIRole 1 MG (REQUIP) TABLET PO SCH (08:10)
--- NOTE | 2019-11-17 08:11 | Discharge Inst-Simple/Standard ---
Discharge Inst-Standard Patient Instructions/Follow Up Plan of Care/Instructions/FU: Please continue to take your medications as written. Please follow up with your primary care doctor and Dr Kaplan. Activity as Tolerated: Yes Discharge Diet: Cardiac Diet Return to The Hospital For: Shortness of breath, chest pain, palpitations, fever, confusion, if you feel you are getting worse. KRISS MORROW MD Nov 17, 2019 08:11
[2019-11-17] MEDS: SINEMET 25/100 (CARBIDOPA/LEVODOPA) TAB PO SCH (08:13)
--- NOTE | 2019-11-17 08:15 | Discharge Summary ---
Diagnosis/Chief Complaint Date of Admission Nov 16, 2019 at 09:24 Date of Discharge Discharge Date: Nov 17, 2019 Admission Diagnosis A-fib with RVR Primary Care No,Local Physician Discharge Summary Discharge Physical Exam Allergies: Coded Allergies: Sulfa (Sulfonamide Antibiotics) (Verified Allergy, Unknown, hives, 11/16/19) Vitals & I&Os Vital Signs Date Time Temp Pulse Resp B/P (MAP) Pulse Ox O2 Delivery O2 Flow Rate FiO2 11/17/19 09:30 11/17/19 09:00 57 15 87 Room Air 11/17/19 08:00 37.1 11/17/19 08:00 1.00 General Appearance: No Apparent Distress, Thin Cardiovascular: Regular Rate, Rhythm Gastrointestinal: Normal Bowel Sounds, Soft Neurologic/Psychiatric: Alert, Oriented x3 Hospital Course Pt was admitted to the ICU due to atrial fibrillation with rapid ventricular rate and hypotension. 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 She converted to sinus rhythm and her BP improved. She was discharged home in stable condition on an amiodarone taper. She is to follow up with Dr Ahuja and Dr Kaplan. Labs (last 24 hrs) Microbiology 11/16/19 MRSA Screen - Final, Complete MRSA not isolated Patient resulted labs reviewed. Pending Labs Imaging: Reviewed Imaging Report Discussion & Recommendations Discharge Planning: >30 minutes discharge planning Discharge Home Medications: Active Scripts Active Amiodarone HCl 200 Mg Tablet 200 Mg PO UD Take 2 tablets twice daily for one week then Take one tablet twice daily Reported Preservision Areds Tablet (Vit A/Vit C/Vit E/Zinc/Copper) 1 Each Tablet 1 Each PO BID Hydrocodone-Acetamin 10-325 mg (Hydrocodone/Acetaminophen) 1 Each Tablet 1-2 Ea PO Q4 -6H PRN Vitamin B-12 (Cyanocobalamin (Vitamin B-12)) 1,000 Mcg Capsule 2,000 Mcg PO DAILY Pantoprazole Sodium 40 Mg Tablet.dr 40 Mg PO DAILY PRN Vitamin D3 (Cholecalciferol (Vitamin D3)) 50 Mcg Capsule 50 Mcg PO DAILY Lisinopril 20 Mg Tablet 40 Mg PO DAILY TAKES 2 (20MG) TABS Metoprolol Succinate 25 Mg Tab.er.24h 25 Mg PO DAILY Eliquis (Apixaban) 2.5 Mg Tablet 2.5 Mg PO BID Lovastatin 10 Mg Tablet 10 Mg PO HS Aspir 81 (Aspirin) 81 Mg Tablet.dr 81 Mg PO HS Ropinirole HCl 1 Mg Tablet 1 Mg PO TID Carbidopa-Levodopa 25-100 Tab (Carbidopa/Levodopa) 1 Each Tablet 2 Ea PO TID Docusate Sodium 100 Mg Capsule 200 Mg PO BID TAKES 2 (100 MG) CAPSULES Diclofenac Sodium 50 Mg Tablet.dr 50 Mg PO BID Diazepam 10 Mg Tablet 10 Mg PO HS PRN Tramadol HCl 50 Mg Tablet 50 Mg PO Q6H PRN Instructions to patient/family Please see electronic discharge instructions given to patient. Clinical Quality Measures AMI/AHF: ASA po Prior to arrival: Yes DVT/VTE Risk/Contraindication: Risk Factor Score Per Nursin RFS Level Per Nursing on Admit: 2=Moderate KRISS MORROW MD Nov 17, 2019 08:15
[2019-11-17] MEDS ORDERED: AMIO200T4 PO (08:38)
--- NOTE | 2019-11-17 08:39 | Cardiology Progress Note ---
Subjective Date Seen by Provider: Nov 17, 2019 Time Seen by Provider: 08:38 Subjective/Events-last exam Patient was seen and evaluated, converted to sinus rhythm on amiodarone. Doing well Review of Systems General: No Chills, No Night Sweats, No Fatigue, No Malaise, No Appetite, No Other HEENT: No Head Aches, No Visual Changes, No Eye Pain, No Ear Pain, No Dysphasia , No Sinus Congestion, No Post Nasal Drip, No Sore Throat, No Other Pulmonary: No Dyspnea, No Cough, No Pleuritic Chest Pain, No Other Cardiovascular: No: Chest Pain, Palpitations, Orthopnea, Paroxysmal Noc. Dyspnea, Edema, Lt Headedness, Other Objective-Cardiology Exam Last Set of Vital Signs Vital Signs 11/17/19 11/17/19 11/17/19 06:00 08:00 08:25 Temp 37.1 Pulse 55 Resp 17 B/P (MAP) 146/83 (104) Pulse Ox 93 O2 Delivery Nasal Cannula O2 Flow Rate 1.00 Capillary Refill : Less Than 3 Seconds I&O Intake and Output 11/17/19 00:00 Intake Total 3059 ml Output Total 1100 ml Balance 1959 ml Intake Oral 1200 ml IV Total 1859 ml Output Urine Total 1100 ml # Voids 1 # Bowel Movements 1 Daily Weight Change Yes, 2-13 lbs General: Alert, Oriented X3, Cooperative HEENT: Atraumatic, PERRLA Neck: Supple, No JVD, No Thyromegaly Lungs: Clear to Auscultation, Normal Air Movement Heart: Regular Rate, Normal S1, Normal S2, No Murmurs Abdomen: Normal Bowel Sounds, Soft, No Tenderness, No Hepatosplenomegaly, No Masses Extremities: No Clubbing, No Cyanosis, No Edema, Normal Pulses, No Tenderness/Swelling Skin: No Rashes, No Breakdown, No Significant Lesion Neuro: Normal Gait, Normal Speech, Strength at 5/5 X4 Ext, Normal Tone, Sensation Intact Psych/Mental Status: Mental Status NL, Mood NL Results Lab Laboratory Tests 11/17/19 02:45 A/P-Cardiology Admission Diagnosis Paroxysmal atrial fibrillation Coronary artery disease Hypotension Hyperlipidemia Assessment/Plan Paroxysmal atrial fibrillation, has been maintained on Eliquis and metoprolol, went back to atrial fibrillation with rapid ventricular response, could not tolerate Cardizem due to hypotension. Started on sotalol, noted to have prolonged QT interval subsequently it was stopped and switched to amiodarone, converted to sinus rhythm on amiodarone drip. I will discharge home with loading dose amiodarone and arrange for follow-up as an outpatient Coronary artery disease, had cardiac catheterization done in January 2019 showing tortuous carotid system with nonobstructive disease, the procedure was repeated by Dr. Khalil in June 2019 after having elevated troponin and also showed tortuous coronary with nonobstructive disease. We'll continue monitoring. History of labile hypertension, has been having elevated blood pressure at home. Blood pressure is better controlled. Continue to monitor History of hyperlipidemia, monitor lipids, continue on lovastatin History of Dick's palsy History of Parkinson's. Nonobstructive carotid artery stenosis per carotid duplex done 2017. We'll r eevaluate carotid duplex today. Clinical Quality Measures AMI/AHF: ASA po Prior to arrival: Yes DVT/VTE Risk/Contraindication: Risk Factor Score Per Nursin RFS Level Per Nursing on Admit: 2=Moderate ESTRELLA GRECO MD Nov 17, 2019 08:39
[2019-11-17] MEDS ORDERED: KCL 20 MEQ TAB (K-DUR) PO ONE (09:00)
--- NOTE | 2019-11-17 09:23 | NUR ---
CM/SS visited with the patient to assess for needs upon discharge. Plan: The patient will return home with new medications with transportation from her [facility]. The patient reports that she is doing well today and is ready to get back home. CM/SS asked if the patient was able to afford her medications and Eliquis. She reports that her insurance covers her medications and does not need assistance. The patient reports that she is getting around her home well due to modifications they have made in the past. She has had multiple broken bones in the past. The patient states that she has a walk-in shower and tub and additional modifications. DME: The patient reports that she believes she uses [facility] for her walker. No further needs at this time.
== END 2019-11-17 09:30 | disposition home or self-care (01) | DRG 310 ==
LOC: EDUNIT# 07:32 → ER 07:33 → ICU 09:24
PROVIDERS: ADMIT Family Medicine; ATTEND Family Medicine
DX: I48.0 Paroxysmal atrial fibrillation (principal); I25.10 Atherosclerotic heart disease of native coronary artery without angina pectoris; I10 Essential (primary) hypertension; E78.5 Hyperlipidemia, unspecified; I65.29 Occlusion and stenosis of unspecified carotid artery; G20 Parkinson's disease; I95.9 Hypotension, unspecified; I25.2 Old myocardial infarction; Z96.653 Presence of artificial knee joint, bilateral; Z96.612 Presence of left artificial shoulder joint; M19.91 Primary osteoarthritis, unspecified site; M54.9 Dorsalgia, unspecified; F41.9 Anxiety disorder, unspecified; Z79.01 Long term (current) use of anticoagulants; Z87.891 Personal history of nicotine dependence; Z86.73 Personal history of transient ischemic attack (TIA), and cerebral infarction without residual deficits
CPT/HCPCS: 36415; 71045; 80048; 80053; 80061; 83735; 83874; 84100; 84484; 85025; 85027; 85610; 85730; 87081; 93005; 93041

== ENCOUNTER → 2019-11-26 | Outpatient (CLI) | payer MEDICARE, OTHER ==
[~2019-11-26] MED LIST changes: +AMIO200T4 PO; +BETA1TAB15 PO; +CEPH-507 PO; +CHOL20002 PO; +CYAN-23 PO; +CYAN500T62 PO; +HYDR-3820 PO; +LISI-552 PO; +PANT40TA3 PO
--- NOTE | 2019-11-26 15:06 | Diagnostic Imaging Report ---
PROCEDURE: MRI lumbar spine. TECHNIQUE: Multiplanar, multisequence MRI of the lumbar spine was performed without contrast. INDICATION: Chronic lower back pain. COMPARISON: None. FINDINGS: For the purposes of this exam, last well-formed disc space is denoted the L5-S1 level. Evaluation of static alignment shows slight grade 1 retrolisthesis at L2-L3. Note is also made of [id number] reverse S-shaped scoliotic deformity of the lower thoracic and lumbar spine. There is no evidence of jumped facets. Evaluation of the lumbar vertebral body heights demonstrates loss of the L1 vertebral body. Patient is status post methylmethacrylate augmentation at this level. There is also mild height loss of L2 and L3, but this is chronic in appearance. No acute fracture is seen. Marrow signal is unremarkable. There is also multilevel intervertebral disc height loss. Visualized portions of distal cord are unremarkable. Conus terminates at approximately the L1-L2 level. No abnormal intrathecal filling defects are seen. Pre and paravertebral soft tissue structures are unremarkable. Axial images demonstrate the following: T12-L1: There is broad-based posterior disc bulge and bilateral facet arthropathy, right greater than left. As result, there is moderate narrowing of the spinal canal and [id number] narrowing of the right neuroforamen. In contrast, there is mild narrowing of the left neuroforamen. L1-L2: There is mild broad-based posterior disc bulge and bilateral ligamentum flavum laxity and facet arthropathy. As result, there is moderate stenosis of the spinal canal and bilateral neural foramen. L2-L3: There is broad-based posterior disc bulge and bilateral ligamentum flavum laxity and facet arthropathy. Patient is status post previous laminectomy. As result, there is mild narrowing of the spinal canal and bilateral neural foramen. L3-L4: There is broad-based posterior disc bulge and bilateral ligamentum flavum laxity and facet arthropathy. As result, there is [id number] spinal canal stenosis. There is also [id number] narrowing of bilateral neural foramen. L4-L5: There is broad-based posterior disc bulge and bilateral ligamentum flavum laxity and facet arthropathy. As result, there is mild narrowing of the spinal canal and bilateral neural foramen. L5-S1: There is no large disc bulge or focal protrusion. There is bilateral facet arthropathy. There is no significant spinal canal or neuroforaminal stenosis. IMPRESSION: 1. No acute fracture or dislocation of lumbar spine. 2. 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 Dictated by: Dictated on workstation # [id number]
== END ==
LOC: RAD 13:38
PROVIDERS: ATTEND Orthopaedic Surgery
DX: M47.816 Spondylosis without myelopathy or radiculopathy, lumbar region (principal); M51.26 Other intervertebral disc displacement, lumbar region
CPT/HCPCS: 72148

== ENCOUNTER 2019-11-30 01:16 | Inpatient (IN) | payer MEDICARE, OTHER ==
[~2019-11-30] VITALS: Ht 160 cm; Wt 55.5 kg
[2019-11-30] VITALS (11 sets, daily range): BP systolic 97–132; BP diastolic 52–68
[~2019-11-30 01:16] MED LIST changes: -CEPH-507 PO
--- OUTSIDE RECORDS SUMMARY | 2019-11-30 01:22 | XMS REPORT | Continuity of Care Document ---
Author Organization Unknown Address Unknown Phone Unavailable Allergies Active Description Code Type Severity Reaction Onset Reported/Identified Relationship to Patient Clinical Status Yes Sulfa (Sulfonamide Antibiotics) [id number] 0491 Drug Allergy Unknown N/A 020 Yes Sulfa (Sulfonamide Antibiotics) [id number] 0491 Drug Allergy Unknown hives 020 Medications There is no data. Problems [...] 07/28/2015 Ot V76.12 07/28/2015 Ot 781.0 07/28/2015 ROSY PINO, NAPOLEON Denis Ot 793.82 07/28/2015 NAPOLEON GALLEGOS MD Ot [...] MAMMOGRAM FOR MALIGNANT NE 05/23/2016 CARLA HIRSCH VEHICLE DAMAGE APPRAISER Ot R25.1 TREMOR, UNSPECIFIED 05/24/2016 Ot V76.12 [...] OTH SCREEN MAMMO-MALIGN NEOPLASM OF [place] 05/24/2016 ROSY PINO, NAPOLEON Denis Ot 733.90 BONE CARTILAGE DIS NOS 05/24/2016 ADAM JON Ot 174.9 MALIGN NEOPL BREAST NOS 05/24/2016 ADAM JON Ot V76.11 SCRN MAMMO-HIGH RISK PT, MALIGNANT NEOPL 05/24/2016 SHILOH PINO, ROULA Arce Ot M81.0 AGE- RELATED OSTEOPOROSIS W/O CURRENT PAT 05/24/2016 SHILOH PINO, ROULA Arce Ot Z12.31 ENCNTR SCREEN MAMMOGRAM FOR MALIGNANT NE 05/24/2016 SNCARLA OH VEHICLE DAMAGE APPRAISER Ot R25.1 TREMOR, UNSPECIFIED 06/14/2016 SNOOKHERONI R VEHICLE DAMAGE APPRAISER Ot R25.1 TREMOR, UNSPECIFIED 06/20/2016 SNOOK, CARLA R VEHICLE DAMAGE APPRAISER Ot R25.1 TREMOR, UNSPECIFIED 06/21/2016 TAPIA DO FLORENCIA Ot E78.5 HYPERLIPIDEMIA, UNSPECIFIED 06/21/2016 TAPIA DO FLORENCIA Ot F41.1 GENERALIZED ANXIETY DISORDER 06/21/2016 TAPIA DO FLORENCIA Ot G81.94 HEMIPLEGIA, UNSPECIFIED AFFECTING LEFT N 06/21/2016 TAPIA DO FLORENCIA Ot I10 ESSENTIAL (PRIMARY) HYPERTENSION 06/21/2016 TAPIA DO FLORENCIA Ot I63.9 CEREBRAL INFARCTION, UNSPECIFIED 06/21/2016 TAPIA DO, FLORENCIA Ot N39.0 URINARY TRACT INFECTION, SITE NOT SPECIF 06/21/2016 WILLIE DO, FLORENCIA Ot R29.81 0 FACIAL WEAKNESS 06/13/2018 SHREE DELVALLE MD Ot Z12.31 ENCNTR SCREEN MAMMOGRAM FOR MALIGNANT NE 06/19/2018 NAPOLEON GALLEGOS MD Ot 793.82 INCONCLUSIVE MAMMOGRAM 06/19/2018 NAPOLEON GALLEGOS MD Ot V76.12 OTH SCREEN MAMMO-MALIGN NEOPLASM OF [place] 06/19/2018 NAPOLEON GALLEGOS MD Ot 733.90 BONE CARTILAGE DIS NOS 06/19/2018 ADAM JON Ot 174.9 MALIGN NEOPL BREAST NOS 06/19/2018 ADAM JON Ot V76.11 SCRN MAMMO-HIGH RISK PT, MALIGNANT NEOPL 06/19/2018 ROULA MATAMOROS MD Ot M81.0 AGE- RELATED OSTEOPOROSIS W/O CURRENT PAT 06/19/2018 ROULA MATAMOROS MD, Ot Z12.31 ENCNTR SCREEN MAMMOGRAM FOR MALIGNANT NE 06/19/2018 CARLA HIRSCH APRN Ot R25.1 TREMOR, UNSPECIFIED 06/19/2018 SHREE DELVALLE [...] FRACTURE OF UNSP LUM[place] 11/20/2018 SHREE DELVALLE MD, Ot R92.8 OTH ABN AND INCONCLUSIVE FINDINGS ON DX 11/30/2018 SHREE DELVALLE MD, Ot R92.8 OTH ABN AND INCONCLUSIVE FINDINGS ON DX 12/02/2018 SHREE DELVALLE MD, Ot R92.8 OTH ABN AND INCONCLUSIVE FINDINGS ON DX 12/06/2018 SHREE DELVALLE MD, Ot R92.8 OTH ABN AND INCONCLUSIVE FINDINGS ON DX 12/14/2018 GILBERTO ESPOISTO DO Ot F41.9 ANXIETY DISORDER, UNSPECIFIED 12/14/2018 GILBERTO ESPOSITO DO Ot I10 ESSENTIAL (PRIMARY) HYPERTENSION 12/14/2018 VAIBHAV GILBERTO BLAKE Ot S42.301 A UNSP FRACTURE OF SHAFT OF HUMERUS, RIGHT 12/14/2018 VAIBHAV GILBEROT BLAKE Ot S49.91X A UNSP INJURY OF RIGHT SHOULDER AND UPPER 12/14/2018 GILBERTO ESPOSITO DO Ot W01.0XX A FALL SAME LEV FROM SLIP/TRIP W/O STRIKE 12/14/2018 GILBERTO ESPOSITO DO Ot Y92.002 BATHRM OF UNSP NON-INSTITUT RESDNCE SNGL 12/14/2018 GILBERTO ESPOSITO DO Ot Z79.82 CARE HOME (CURRENT) USE OF ASPIRIN 12/14/2018 GILBERTO ESPOSITO DO Ot Z86.73 PRSNL HX OF TIA (TIA), AND CEREB INFRC W 12/14/2018 GILBERTO ESPOSITO DO, Ot Z87.891 PERSONAL HISTORY OF NICOTINE DEPENDENCE 12/14/2018 GILBERTO ESPOSITO DO, Ot Z88.2 ALLERGY STATUS TO SULFONAMIDES STATUS 12/14/2018 GILBERTO ESPOSITO DO, Ot Z90.710 ACQUIRED ABSENCE OF BOTH CERVIX AND UTER 12/14/2018 GILBERTO ESPOSITO DO Ot Z90.89 ACQUIRED ABSENCE OF OTHER ORGANS 12/14/2018 VAIBHAV GILBERTO BLAKE Ot Z96.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 12/14/2018 GILBERTO ESPOSITO DO, Ot Z96.653 PRESENCE OF ARTIFICIAL KNEE JOINT, BILAT 12/16/2018 VAIBHAV GILBERTO BLAKE Ot F41.9 ANXIETY DISORDER, UNSPECIFIED 12/16/2018 GILBERTO ESPOSITO DO Ot I10 ESSENTIAL (PRIMARY) HYPERTENSION 12/16/2018 GILBERTO ESPOSITO DO Ot S42.301 A UNSP FRACTURE OF SHAFT OF HUMERUS, RIGHT 12/16/2018 GILBERTO ESPOSITO DO Ot S49.91X A UNSP INJURY OF RIGHT SHOULDER AND UPPER 12/16/2018 GILBERTO ESPOSITO DO Ot W01.0XX A FALL SAME LEV FROM SLIP/TRIP W/O STRIKE 12/16/2018 GILBERTO ESPOSITO DO Ot Y92.002 BATHRM OF UNSP NON-INSTITUT RESDNCE SNGL 12/16/2018 VAIBHAV BLAKE GILBERTO Mario Ot Z79.82 CARE HOME (CURRENT) USE OF ASPIRIN 12/16/2018 VAIBHAV GILBERTO Mario Ot Z86.73 PRSNL HX OF TIA (TIA), AND CEREB INFRC W 12/16/2018 VAIBHAV BLAKE GILBETRO Mario Ot Z87.891 PERSONAL HISTORY OF NICOTINE DEPENDENCE 12/16/2018 VAIBHAV BLAKEJAMINA Mario Leon Z88.2 ALLERGY STATUS TO SULFONAMIDES STATUS 12/16/2018 VAIBHAV BLAKE GILBERTO Mario Ot Z90.710 ACQUIRED ABSENCE OF BOTH CERVIX AND UTER 12/16/2018 VAIBHAV GILBERTO Ot Z90.89 ACQUIRED ABSENCE OF OTHER ORGANS 12/16/2018 VAIBHAV GILBERTO Ot Z96.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 12/16/2018 VAIBHAV GILBERTO Ot Z96.653 PRESENCE OF ARTIFICIAL KNEE JOINT, [...] 01/21/2019 WILL CHILDS MD Ot Z79. 82 CARE HOME (CURRENT) USE OF ASPIRIN 01/21/2019 WILL CHILDS [...] MD Ot I10 ESSENTIAL (PRIMARY) HYPERTENSION 01/21/2019 IWLL CHILDS MD Ot I21. A1 MYOCARDIAL INFARCTION TYPE 2 01/21/2019 WILL CHILDS MD Ot I25. 10 ATHSCL HEART DISEASE OF [place] CORONARY 01/21/2019 WILL CHILDS MD Ot I48. [...] 01/21/2019 WILL CHILDS MD Ot Z79. 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 07/06/2019 NAPOLEON GALLEGOS MD Ot I21.A1 MYOCARDIAL INFARCTION TYPE 2 07/06/2019 NAPOLEON GALLEGOS MD Ot I25.10 ATHSCL HEART DISEASE OF [place] CORONARY 07/06/2019 NAPOLEON GALLEGOS MD Ot I25.2 OLD MYOCARDIAL INFARCTION 07/06/2019 NAPOLEON GALLEGOS MD Ot I48.0 PAROXYSMAL ATRIAL FIBRILLATION 07/06/2019 NAPOLEON GALLEGOS MD Ot I50.31 ACUTE DIASTOLIC (CONGESTIVE) HEART FAILU 07/06/2019 NAOPLEON GALLEGOS MD Ot J30.2 OTHER SEASONAL ALLERGIC [...] UNSPECIFIED 07/06/2019 NAPOLEON GALLEGOS MD Ot 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 5 HYPERLIPIDEMIA, UNSPECIFIED 11/17/2019 KRISS MORROW MD Ot F41. 9 ANXIETY DISORDER, UNSPECIFIED 11/17/2019 KRISS MORROW MD Ot G20 PARKINSON'S DISEASE 11/17/2019 KRISS MORROW MD, Ot I10 ESSENTIAL (PRIMARY) HYPERTENSION 11/17/2019 KRISS MORROW MD, Ot I25. 10 ATHSCL HEART DISEASE OF [place] CORONARY 11/17/2019 KRISS MORROW MD, Ot I25. 2 OLD MYOCARDIAL INFARCTION 11/17/2019 KRISS MORROW MD Ot I48. 0 PAROXYSMAL ATRIAL FIBRILLATION 11/17/2019 KRISS MORROW MD Ot I65. 29 OCCLUSION AND STENOSIS OF UNSPECIFIED CA 11/17/2019 KRISS MORROW MD Ot I95. 9 HYPOTENSION, UNSPECIFIED 11/17/2019 KRISS MORROW MD Ot M19. 91 PRIMARY OSTEOARTHRITIS, UNSPECIFIED SITE 11/17/2019 KRISS MORROW MD Ot M54. 9 DORSALGIA, UNSPECIFIED 11/17/2019 KRISS MORROW MD Ot Z79. 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 73 PRSNL HX OF TIA (TIA), AND CEREB INFRC W 11/17/2019 KRISS MORROW MD Ot Z87.891 PERSONAL HISTORY OF NICOTINE DEPENDENCE 11/17/2019 KRISS MORROW MD Ot Z96.612 PRESENCE OF LEFT ARTIFICIAL SHOULDER ADAM 11/17/2019 KRISS MORROW MD Ot Z96.653 PRESENCE OF ARTIFICIAL KNEE JOINT, BILAT Procedures Code Description Performed By Per formed On G0008 FLU ADMINISTRATION (MEDICARE ONLY) 04/06/2013 [id number] ME ASURE OF CARDIAC SAMPL PRESSURE, L H 01/21/2019 [id number] FL UOROSCOPY OF MULT COR ART USING L OSM 01/21/2019 [id number] FL UOROSCOPY OF LEFT HEART USING LOW OSMO 01/21/2019 [id number] FL UOROSCOPY OF ABDOMINAL AORTA USING LOW 01/21/2019 [id number] ME ASURE OF CARDIAC SAMPL PRESSURE, L H 07/05/2019 [id number] FL UOROSCOPY OF MULT COR ART USING L OSM 07/05/2019 [id number] FL UOROSCOPY OF LEFT HEART USING LOW OSMO 07/05/2019 [id number] FL UOROSCOPY OF THORACIC AORTA USING LOW [...] culture - 06/20/16 11:45 Bacterial urine culture [id number] NRG COLONY COUNT <10,000 NRG FTX;REPORTABLE SENSITIVITY [...] finding identification by light micr oscopy YES NRG Comprehensive metabolic panel - 06/21/16 03:28 Serum [...] ng/mL <0.028 Automated blood complete blood count ( mogram) panel - 01/20/19 04:55 Blood leukocytes [...] 105 mmol/L 98-107 Carbon dioxide 25 mmol/L 32 Serum or plasma anion gap determination (moles/volume) [...] i.cardiac measurement (mass/v olume) 1.432 ng/mL <0.028 Complete blood count (CBC) with automate d white blood cell (WBC) differential - 11/16/19 07:40 Blood leukocytes automated count (number/volume) 6.9 10*3/uL 4.3-11.0 Blood erythrocytes automated count (number/volume) 5.12 10*6/uL 4.35-5.85 Venous blood hemoglobin measurement (mass/volume) 14.2 g/dL 11.5-16.0 Blood hematocrit (volume fraction) 46 % 35-52 Automated erythrocyte mean corpuscular volume 89 [ foz_us] 80-99 Automated erythrocyte mean corpuscular h emoglobin (mass per erythrocyte) 28 pg 25-34 Automated erythrocyte mean corpuscular h emoglobin concentration measurement (mass/volume) 31 g/dL 32-36 Automated erythrocyte distribution width ratio 15. 9 % 10.0- 14.5 Automated blood platelet count (count/volume) 270 10*3/uL 130-400 Automated blood platelet mean volume measurement 10.5 [foz_us] 7.4-10.4 Automated blood neutrophils/100 leukocytes 52 % 42-75 Automated blood lymphocytes/100 leukocytes 32 % 12-44 Blood monocytes/100 leukocytes 10 % 0-12 Automated blood eosinophils/100 leukocytes 5 % 0-10 Automated blood basophils/100 leukocytes 0 % 0-10 Blood neutrophils automated count (number/volume) 3.6 10*3 1.8-7.8 Blood lymphocytes automated count (number/volume) 2.2 10*3 1.0-4.0 Blood monocytes automated count (number/volume) 0. 7 10*3 0.0-1.0 Automated eosinophil count 0.4 10*3/uL 0 .0-0.3 Automated blood basophil count (count/volume) 0.0 10*3/uL 0.0-0.1 PT panel in platelet poor plasma by coag ulation assay - 11/16/19 07:40 Prothrombin time (PT) in platelet poor plasma by coagu lation assay 13.8 s 12.2-14.7 INR in platelet poor plasma or blood by coagulation as say 1.0 0.8-1.4 Activated partial thromboplastin time (a PTT) in platelet poor plasma bycoagulation assay - 11/16/19 07:40 Activated partial thromboplastin time (a PTT) in platelet poor plasma bycoagulation assay 29 s 24-35 Comprehensive metabolic panel - 11/16/19 07:40 Serum or plasma sodium measurement (moles/volume) 142 mmol/L 135-145 Serum or plasma potassium measurement (moles/volume) 4.0 mmol/L 3.6-5.0 Serum or plasma chloride measurement (moles/volume) 106 mmol/L 98-107 Carbon dioxide 26 mmol/L 21-32 Serum or plasma anion gap determination (moles/volume) 10 mmol/L 5-14 Serum or plasma urea nitrogen measurement (mass/volume ) 22 mg/dL 7-18 Serum or plasma creatinine measurement (mass/volume) 0.78 mg/dL 0.60-1.30 Serum or plasma urea nitrogen/creatinine mass ratio 28 NRG Serum or plasma creatinine measurement w ith calculation of estimated glomerular filtration rate > NRG Serum or plasma glucose measurement (mass/volume) 97 mg/dL 70-105 Serum or plasma calcium measurement (mass/volume) 9.1 mg/dL 8.5-10.1 Serum or plasma total bilirubin measurement (mass/volu me) 0.4 mg/dL 0.1-1.0 Serum or plasma alkaline phosphatase kem surement (enzymatic activity/volume) 73 U/L 40-136 Serum or plasma aspartate aminotransfera se measurement (enzymatic activity/volume) 19 U/L 5-34 Serum or plasma alanine aminotransferase measurement (enzymatic activity/volume) < U/L 0-55 Serum or plasma protein measurement (mass/volume) 7.0 g/dL 6.4-8.2 Serum or plasma albumin measurement (mass/volume) 4.0 g/dL 3.2-4.5 CALCIUM CORRECTED 9.1 mg/dL 8.5-10.1 Magnesium - 11/16/19 07:40 Magnesium 2.1 mg/dL 1.6-2.4 Serum or plasma troponin i.cardiac measu rement (mass/volume) - 11/16/19 07:40 Serum or plasma troponin i.cardiac measurement (mass/v olume) < ng/mL <0.028 Myoglobin, serum - 11/16/19 07:40 Myoglobin, serum 58.8 ng/mL 10.0-92.0 Methicillin resistant Staphylococcus aur eus (MRSA) screening culture - 11/16/19 10:13 Methicillin resistant Staphylococcus aureus (MRSA) scr eening culture NEG NRG Automated blood complete blood count (he mogram) panel - 11/17/19 02:45 Blood leukocytes automated count (number/volume) 5.9 10*3/uL 4.3-11.0 Blood erythrocytes automated count (number/volume) 4.24 10*6/uL 4.35-5.85 Venous blood hemoglobin measurement (mass/volume) 11.6 g/dL 11.5-16.0 Blood hematocrit (volume fraction) 38 % 35-52 Automated erythrocyte mean corpuscular volume 90 [ foz_us] 80-99 Automated erythrocyte mean corpuscular h emoglobin (mass per erythrocyte) 27 pg 25-34 Automated erythrocyte mean corpuscular h emoglobin concentration measurement (mass/volume) 30 g/dL 32-36 Automated erythrocyte distribution width ratio 16. 0 % 10.0- 14.5 Automated blood platelet count (count/volume) 213 10*3/uL 130-400 Automated blood platelet mean volume measurement 10.4 [foz_us] 7.4-10.4 Whole blood basic metabolic panel - 08/06 02:45 Serum or plasma sodium measurement (moles/volume) 145 mmol/L 135-145 Serum or plasma potassium measurement (moles/volume) 3.6 mmol/L 3.6-5.0 Serum or plasma chloride measurement (moles/volume) 112 mmol/L 98-107 Carbon dioxide 27 mmol/L 21-32 Serum or plasma anion gap determination (moles/volume) 6 mmol/L 5-14 Serum or plasma urea nitrogen measurement (mass/volume ) 12 mg/dL 7-18 Serum or plasma creatinine measurement (mass/volume) 0.66 mg/dL 0.60-1.30 Serum or plasma urea nitrogen/creatinine mass ratio 18 NRG Serum or plasma creatinine measurement w ith calculation of estimated glomerular filtration rate > NRG Serum or plasma glucose measurement (mass/volume) 99 mg/dL 70-105 Serum or plasma calcium measurement (mass/volume) 8.2 mg/dL 8.5-10.1 Lipid 1996 panel - 11/17/19 02:45 Serum or plasma triglyceride measurement (mass/volume) 64 mg/dL <150 Serum or plasma cholesterol measurement (mass/volume) 120 mg/dL < 200 Serum or plasma cholesterol in HDL measurement (mass/v olume) 51 mg/dL 40-60 Cholesterol in LDL [mass/volume] in serum or plasma by direct assay 57 mg/dL 1-129 Serum or plasma cholesterol in VLDL measurement (mass/ volume) 13 mg/dL 5-40 Serum or plasma phosphate measurement (m ass/volume) - 11/17/19 02:45 Serum or plasma phosphate measurement (mass/volume) 3.0 mg/dL 2.3-4.7 Magnesium - 11/17/19 02:45 Magnesium 1.7 mg/dL 1.6-2.4 Encounters ACCT No. Visit Date/Time Discharge Status Pt. Type Provider Facility Loc./Unit Complaint [id number] 06/08/2014 09:49:53 ACT Document Registration [id number] 04/06/2013 16:39:00 04/06/2013 23:59: 59 CLS Outpatient KRISTIN TARA Mario [id number] 11/26/2019 13:38:00 23:59:59 CLS Outpatient NAEEM SHERINE BLAKE [facility] RAD BACK PAIN [id number] 11/16/2019 09:24:00 09:30:00 DIS Inpatient CRISTHIAN PINO, KRISS Denis [facility] ICU AFIB W RVR [id number] 07/04/2019 12:35:00 13:25:00 DIS Inpatient NAPOLEON GALLEGOS MD [facility] 4TH CHEST PAIN,ELEV ATED TROPONIN,HYPERTENSION,HYPOXIA [id number] 01/20/2019 11:42:00 16:40:00 DIS Inpatient WILL CHILDS MD [facility] 4TH AFIB W RVR,CP [id number] 12/13/2018 22:30:00 01:59:00 DIS Emergency GILBERTO ESPOSITO DO [facility] ER RT ARM INJURY [id number] 11/26/2018 08:03:00 23:59:59 CLS Outpatient SHREE DELVALLE MD [facility] RAD ABN MAMMO [id number] 10/17/2018 11:53:00 019 23:59:59 CLS Outpatient OSMEL LINDA DC [facility] RAD ACUTE LOW BACK PAIN [id number] 06/19/2018 14:33:00 019 23:59:59 CLS Outpatient SHREE DELVALLE MD [facility] RAD SCREENING [id number] 04/03/2017 10:15:00 017 23:59:59 CLS Preadmit OTHER, UNLISTED [facility] RAD SCREENING [id number] 06/20/2016 14:25:00 14:37:00 DIS Inpatient FLORENCIA TAPIA DO, [facility] ICU CVA UTI [id number] 05/22/2016 13:39:00 016 23:59:59 CLS Outpatient CARLA HIRSCH VEHICLE DAMAGE APPRAISER [facility] RAD TREMORS [id number] 07/28/2015 10:50:00 016 23:59:59 CLS Outpatient ROULA MATAMOROS MD, [facility] RAD SCREENING [id number] 06/08/2014 09:49:00 014 23:59:59 CLS Outpatient ADAM JON [facility] RAD SCREENING [id number] 10/02/2013 12:41:00 014 23:59:59 CLS Outpatient [id number] 07/17/2013 11:18:00 014 23:59:59 CLS Outpatient NAPOLEON GALLEGOS MD [facility] RAD SCREENING,KYPHO SEOLOSIS [id number] 05/25/2013 14:26:00 013 23:59:59 CLS Outpatient NAPOLEON GALLEGOS MD [facility] RAD SCREENING [id number] 06/08/2014 09:48:00 Document Registration [id number] 07/09/2012 07:55:00 Document Registration [id number] 05/14/2012 15:02:00 Document Registration [id number] 01/10/2012 10:34:00 Document Registration [id number] 01/09/2012 14:20:00 Document Registration [id number] 09/20/2011 10:45:00 Document Registration [id number] 05/07/2011 08:48:00 Document Registration [id number] 05/05/2010 09:32:00 Document Registration [id number] 05/04/2009 13:33:00 Document Registration [id number] 01/12/2009 13:36:00 Document Registration [id number] 12/20/2008 09:09:00 Document Registration
--- OUTSIDE RECORDS SUMMARY | 2019-11-30 01:22 | XMS REPORT ---
Author Author [facility] Address [address] [address] Care Team Providers Care Telecommunications Officer Name Role Phone CARLA HIRSCH BIANCA Unavailable Unavailable TAPIA DO, FLORENCIA Unavailable Unavailable TAPIA DO, FLORENCIA Unavailable Unavailable MADDI ADRIAN, OSMEL Smith Unavailable Unavailable KATHRIN PINO, OSMEL Bell Unavailable Unavailable VAIBHAV BLAKE, GILBERTO K Unavailable Unavailable AMADEO PINO, WILL Denis Unavailable Unavailable CRISTHIAN PINO, KRISS Denis Unavailable Unavailable BO KEENAN Unavailable Unavailable SHREE DELVALLE MD Unavailable Unavailable MACEY PINO, KING Rhoades Unavailable Unavailable ROSY PINO, NAPOLEON Denis Unavailable Unavailable ROSY PINO, NAPOLEON M Unavailable Unavailable CRISTHIAN PINO, KRISS Denis Unavailable Unavailable OSMEL PINON MD Unavailable Unavailable NAEEM , SHERINE M Unavailable Unavailable Unavailable Unavailable Unavailable Unavailable Unavailable Unavailable Allergies Normalized Allergy Reported Date of Reaction(s) Care Provider Facility Allergy Type classification allergen Allergy Onset Drug Allergy Sulfonamides Sulfonamides 12-21-2008 - hiv TEGAAN HLEEN Not Available (22 sources.) (antibiotic) (Antibiotic) MD ROSY (06521 ) Medications No Information Problems Active Problems Problem Normalized Date Last Normalized Normalized Provider Fa cility Classification Problem(s) Recorded Problem Problem Sta tus Duration Congestive Acute Chronic Active N[facility]OLEON [facility] Via heart failure; diastolic MD Kayla GALLEGOS nonhypertensiv (congestive) Hospital - e (7 sources.) heart failure [place] ([address]) Osteoporosis Age-related Chronic Active [facility] Via (7 sources.) osteoporosis MD Kayla GALLEGOS without Hospital - current [place] pathological (07132) fracture Peripheral and Atherosclerosi Chronic Active WILL CHILDS [facility] Via visceral s of renal MD Garza atherosclerosi artery Hospital - s (8 sources.) Translations: [place] [ (06729) ATHEROSCLEROSI S OF AORTA] 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 Active WILL BRO MAN , [facility] Via atherosclerosi c heart MD Kayla faust and other disease of Hospital - heart disease [place] (32 sources.) coronary (68129) artery without angina pectoris Translations: [ OLD MYOCARDIAL INFARCTION] Acute Cerebral Chronic Active FLORENCIA TAPIA , Not Avai lable cerebrovascula infarction, DO (70876) r disease (5 unspecified sources.) Other bone Disorder of Episodic Active NAPOLEON Not Avail able disease and bone and MD ROSY (42590) musculoskeleta cartilage, l deformities unspecified (1 source.) Spondylosis; Dorsalgia, 11-18-2019 - Episodic Active WILL RED MAN , [facility] Via intervertebral unspecified MD Garza disc Hospital - disorders; [place] other back (87570) problems (21 sources.) Chronic Emphysema, Chronic Active [facility] Via obstructive unspecified MD Kayla GALLEGOS pulmonary [facility] - disease and [place] bronchiectasis (39255) (7 sources.) Other Encounter for 11-06-2019 - Episodic Active ADAM STAUFFER EW Not Available screening for screening (41900) suspected mammogram for conditions malignant (not mental neoplasm of disorders or breast infectious Translations: disease) (13 [ SCRN sources.) MAMMO-HIGH RISK PT, MALIGNANT NEOPL, OTH ABN AND INCONCLUSIVE FINDINGS ON DX ] Essential Essential 11-18-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 Active FLORENCIA TAPIA , Not Available hypertension (primary) DO (65252) (24 sources.) hypertension Other Facial Episodic Active FLORENCIA TAPIA , Not Avai lable connective weakness DO (05302) tissue disease (5 sources.) Anxiety Generalized 11-18-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 Active FLORENCIA TAPIA , Not Available disorders (24 anxiety DO (00859) sources.) disorder Translations: [ ANXIETY DISORDER, UNSPECIFIED] Paralysis (5 Hemiplegia, Chronic Active FLORENCIA TAPIA , No t Available sources.) unspecified DO (61701) affecting left nondominant side Disorders of Hyperlipidemia 11-18-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 Active FLORENCIA TAPIA , Not Available lipid , unspecified DO (30653) metabolism (19 sources.) Hypertension Hypertensive Chronic Active [facility] Vi a with heart disease MD Kayla GALLEGOS complications with heart Hospital - and secondary failure [place] hypertension (46512) (7 sources.) Other Hypotension, 11-18-2019 - Episodic Active KRISSMAX Martin , [facility] Via circulatory unspecified MD Garza disease (7 Hospital - sources.) [place] ([address]65) 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-18-2019 - Episodic Active [facility] Via aftercare (14 (current) use MD Kayla GALLEGOS sources.) of Hospital - anticoagulants [place] (14833) Cancer of Malignant Chronic Active ADAM JON Not Avail able breast (1 neoplasm of (38716) source.) breast (female), unspecified Acute Myocardial Chronic Active WILL CHILDS , [facility] Vi a myocardial infarction MD Garza infarction (11 type 2 Hospital - sources.) [place] ([address]224) 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 Active TEAGANFAWN MORROW , [facility] Via stenosis of stenosis of MD Garza precerebral unspecified Hospital - arteries (7 carotid artery [place] sources.) (40796) Other acquired Other forms of Chronic Active OSMEL MADDI , [facility] Via deformities (1 scoliosis, DC Kayla source.) lumbar region Hospital [facility] (05715) Other upper Other seasonal Chronic Active WILL CHILDS , [facility] Via respiratory allergic MD Garza disease (14 rhinitis Hospital - sources.) [place] (60395) Parkinson`s Parkinson's 11-18-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 Active WILL TORRES , [facility] Via disease (14 disease MD Garza sources.) Hospital [facility] (54138) Screening and Personal 11-18-2019 - Episodic Active GILBERTO VAIBHAV , DO [facility] Via history of history of [facility] mental health nicotine Hospital - and substance dependence [place] abuse codes (65925) (26 sources.) Other Personal 11-18-2019 - Episodic Active GILBERTO VAIBHAV , DO [facility] Via circulatory history of Kayla disease (19 transient Hospital - sources.) ischemic [place] attack (TIA), (31543) and cerebral infarction without residual deficits 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-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 Active GILBERTO VAIBHAV , DO [facility] Via 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, Hospital - (26 sources.) bilateral [place] (23491) Other Presence of Chronic Active GILBERTO VAIBHAV , DO [facility] V ia connective left Kayla tissue disease artificial hip Hospital - (5 sources.) joint [place] (16857) 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-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 Active WILL AMADEO , [facility] Via connective left MD Garza tissue disease [facility] Hospital - (21 sources.) shoulder joint [place] (54489) Other Presence of Chronic Active [facility] Via connective right MD Kayla GALLEGOS tissue disease [facility] Hospital - (7 sources.) shoulder joint [place] (07596) Osteoarthritis Primary 11-18-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 Active WILL RED BRIAN , [facility] Via (21 sources.) osteoarthritis MD Garza , unspecified Hospital - site [place] (65217) Other acquired Scoliosis, Chronic Active [facility] Vi a deformities (7 unspecified MD Kayla GALLEGOS sources.) Hospital - [place] (70956) Spondylosis; Spondylosis Chronic Active OSMEL MADDI , [facility] 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 Kayla disc myelopathy or Hospital - disorders; radiculopathy, [place] other back lumbosacral (90487) problems (1 region source.) Other nervous Tremor, Episodic Active CARLA SNOOK Not Av ailable system unspecified (21876) disorders (9 sources.) Cardiac Unspecified 11-18-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 Active WILL CHILDS , [facility] Via dysrhythmias atrial MD Garza (21 sources.) fibrillation Hospital - Translations: [place] [ PAROXYSMAL (21589) ATRIAL FIBRILLATION] Urinary tract Urinary tract Episodic Active FLORENCIA TAPIA , Not Available infections (5 infection, DO (12530) sources.) site not specified Past or Other Problems Problem Normalized Date Last Normalized Normalized Provider Fa cility Classification Problem(s) Recorded Problem Problem Sta tus Duration Residual Acquired Episodic Completed GILBERTO VAIBHAV , DO [facility] Via codes; absence of Kayla unclassified both cervix Hospital - (5 sources.) and uterus [place] (44805) Residual Acquired Episodic Completed GILBERTO VAIBHAV , DO [facility] Via codes; absence of Kayla unclassified other organs Hospital - (5 sources.) [place] (38111) Allergic Allergy status Episodic Completed GILBERTO VAIBHAV , DO [facility] Via reactions (5 to Kayla sources.) sulfonamides Hospital - status [place] (49167) External cause Bathroom of no information no information GILBERTO R RUTHY , DO [facility] Via codes: Place unspecified Kayla of occurrence [facility] Hospital - (3 sources.) nal (private) [place] residence ([address]) single-family (private) house as the place of occurrence of the external cause External cause Bathroom of Episodic Completed GILBERTO VAIBHAV , DO [facility] Via codes: Place unspecified Kayla of occurrence [facility] Hospital - (2 sources.) nal (private) [place] residence ([address]) single-family (private) house as the place of occurrence of the external cause Other nervous Dick's palsy Episodic Completed WILL CHILDS [facility] Via system MD Kayla de la torre (7 Hospital - sources.) [place] () External cause Fall on same no information no information GILBERTO VAIBHAV , DO [facility] Via codes: Fall (3 level from Kayla sources.) slipping, Hospital - tripping and [place] stumbling (26191) without subsequent striking against object, initial encounter External cause Fall on same Episodic Completed GILBERTO VAIBHAV , DO [facility] Via codes: Fall (2 level from Kayla sources.) slipping, Hospital - tripping and [place] stumbling (00590) without subsequent striking against object, initial encounter Fluid and Hypokalemia Episodic Completed WILL CHILDS [facility] V ia electrolyte MD Garza disorders (7 Hospital - sources.) [place] () Other MCC Episodic Completed GILBERTO VAIBHAV , DO [facility] Via aftercare (12 (current) use Kayla sources.) of aspirin [facility] (62396) Nonspecific Other chest Episodic Completed WILL CHILDS [facility] Via chest pain (3 pain Kayla sources.) [facility] (57702) Fracture of Unspecified Episodic Completed GILBERTO VAIBHAV , DO [facility] Via upper limb (5 fracture of Kayla sources.) shaft of [facility] humerus, right [place] arm, initial (43163) encounter for closed fracture Other injuries Unspecified Episodic Completed GILBERTO VAIBHAV , DO [facility] Via and conditions injury of [facility] due to right shoulder Hospital - external and upper arm, [place] causes (5 initial (96234) sources.) encounter Other Wedge Episodic Completed OSMEL LINDA [facility] Via fractures (1 compression DC Kayla source.) fracture of [facility] - unspecified [place] lumbar (73581) vertebra, initial encounter for closed fracture Procedures Procedure Normalized Procedure Procedure Result Performer Facility Date 01-21-2019 FLUOROSCOPY OF no information no name [facility] Via Kayla ABDOMINAL AORTA USING [facility] LOW (71346) 07-05-2019 FLUOROSCOPY OF LEFT no information no name [facility] Via Kayla HEART USING LOW OSMO [facility] (26379) 01-21-2019 FLUOROSCOPY OF LEFT no information no name [facility] Via Kayla HEART USING LOW [facility] (89434) 07-05-2019 FLUOROSCOPY OF MULT no information no name [facility] Via Kayla COR ART USING [facility] ([id number]) 01-21-2019 FLUOROSCOPY OF MULT no information no name [facility] Via Kayal COR ART USING [facility] (08617) 07-05-2019 FLUOROSCOPY OF no information no name [facility] Via Kayla THORACIC AORTA USING [facility] (07393) 07-05-2019 MEASURE OF CARDIAC no information no name [facility] Via Kayla SAMPL PRESSURE, [facility] (84362) 01-21-2019 MEASURE OF CARDIAC no information no name [facility] Via Kayla SAMPL PRESSURE, [facility] (11833) Immunizations No Information Results Test Name Value Interpretation Reference Range Date Time Fa cility (Normalized) (Normalized) (Medline Reference) not yet categorized on 2019-11-17 no information NAME: MJ KRAMER (no code) PENDING LOCAT ION ~MED REC#: [facility] ([id number]) [id number] ~ ~PHYSICIAN: ESTRELLA GRECO MD ~Subjective ~Date Seen by Provider: Nov 17, 2019 ~Time Seen by Provider: 08:38 ~Subjective/Even ts-last exam ~Patient was seen and evaluated, converted to sinus rhythm on amiodarone. Doing well ~Review of Systems ~General: No Chills, No Night Sweats, No Fatigue, No Malaise, No Appetite, No Other ~HEENT: No Head Aches, No Visual Changes, No Eye Pain, No Ear Pain, No Dysphasia, No Sinus ~Congestion, No Post Nasal Drip, No Sore Throat, No Other ~Pulmonary: No Dyspnea, No Cough, No Pleuritic Chest Pain, No Other ~Cardiovascular: No: Chest Pain, Palpitations, Orthopnea, Paroxysmal Noc. Dyspnea, Edema, Lt ~Headedness, Other ~ ~Objective-Cardi ology ~Exam ~Last Set of Vital Signs ~ ~Vital Signs ~ ~ ~ 11/17/19 11/17/19 11/17/19 ~ ~ 06:00 08:00 08:25 ~ ~Temp 37.1 ~ ~Pulse 55 ~ ~Resp 17 ~ ~B/P (MAP) 146/83 (104) ~ ~Pulse Ox 93 ~ ~O2 Delivery Nasal Cannula ~ ~O2 Flow Rate 1.00 ~ ~Capillary Refill : Less Than 3 Seconds ~I O ~ ~ ~ ~Intake and Output ~ ~ 11/17/19 ~ ~ 00:00 ~ ~Intake Total 3059 ml ~ ~Output Total 1100 ml ~ ~Balance 1959 ml ~ ~ ~ ~Intake Oral 1200 ml ~ ~IV Total 1859 ml ~ ~Output Urine Total 1100 ml ~ ~# Voids 1 ~ ~# Bowel Movements 1 ~ ~Daily Weight Change Yes, 2-13 lbs ~ ~ ~General: Alert, Oriented X3, Cooperative ~HEENT: Atraumatic, PERRLA ~Neck: Supple, No JVD, No Thyromegaly ~Lungs: Clear to Auscultation, Normal Air Movement ~Heart: Regular Rate, Normal S1, Normal S2, No Murmurs ~Abdomen: Normal Bowel Sounds, Soft, No Tenderness, No Hepatosplenomega ly, No Masses ~Extremities: No Clubbing, No Cyanosis, No Edema, Normal Pulses, No Tenderness/Swell ing ~Skin: No Rashes, No Breakdown, No Significant Lesion ~Neuro: Normal Gait, Normal Speech, Strength at 5/5 X4 Ext, Normal Tone, Sensation Intact ~Psych/Mental Status: Mental Status NL, Mood NL ~ ~Results ~Lab ~Laboratory Tests ~11/17/19 02:45 ~ ~ ~ ~ ~A/P-Cardiology ~Admission Diagnosis ~Paroxysmal atrial fibrillation ~Coronary artery disease ~Hypotension ~Hyperlipidemia ~ ~Assessment/Plan ~Paroxysmal atrial fibrillation, has been maintained on Eliquis and metoprolol, went back to atrial ~fibrillation with rapid ventricular response, could not tolerate Cardizem due to hypotension. S~tarted on sotalol, noted to have prolonged QT interval subsequently it was stopped and switched to a~miodarone, converted to sinus rhythm on amiodarone drip. I will discharge home with loading dose am~iodarone and arrange for follow-up as an outpatient ~ ~Coronary artery disease, had cardiac catheterization done in January 2019 showing tortuous carotid ~system with nonobstructive disease, the procedure was repeated by Dr. Khalil in June 2019 after ~having elevated troponin and also showed tortuous coronary with nonobstructive disease. We'll ~continue monitoring. ~ ~History of labile hypertension, has been having elevated blood pressure at home. Blood pressure is ~better controlled. Continue to monitor ~ ~History of hyperlipidemia, monitor lipids, continue on lovastatin ~ ~History of Dick's palsy ~ ~History of Parkinson's. ~ ~Nonobstructive carotid artery stenosis per carotid duplex done 2017. We'll reevaluate carotid ~duplex today. ~ ~Clinical Quality Measures ~AMI/AHF: ~ASA po Prior to arrival: Yes ~ ~DVT/VTE Risk/Contraindic ation: ~Risk Factor Score Per Nursin ~RFS Level Per Nursing on Admit: 2=Moderate ~ ~ ~ ~ESTRELLA GRECO MD Nov 17, 2019 08:39 ~ ~ ~<Created by ESTRELLA GRECO MD> ~<Electronically signed by ESTRELLA GRECO MD> 11/17/19 1252 ~ ~ laboratory on 2019-11-16 Albumin 4.0 g/dL (NEG) 3.4 - 5.4 g/dL 11-16-2019 PENDING LOCATION [Mass/Vol] 03:40-0400 [facility] (75452) ALP [Catalytic 73 U/L (NEG) 44 - 147 U/L 11-16-2019 PEND ING LOCATION activity/Vol] 03:40-0400 [facility] (13399) ALT [Catalytic U/L (NEG) 4 - 40 U/L 11-16-2019 PENDIN G LOCATION activity/Vol] 03:40-0400 [facility] (73312) Anion gap 10 mmol/L (NEG) 3 - 11 mmol/L 11-16-2019 PENDING LOCATION [Moles/Vol] 03:40-0400 [facility] (23794) Anion gap 6 mmol/L (NEG) 3 - 11 mmol/L 11-16-2019 PENDING LOCATION [Moles/Vol] 22:45-0400 [facility] (63149) aPTT Coag (PPP) 29 s (NEG) 25 - 35 s 11-16-2019 PENDIN G LOCATION [Time] 03:40-0400 [facility] (44735) AST [Catalytic 19 U/L (NEG) 10 - 34 U/L 11-16-2019 PENDI NG LOCATION activity/Vol] 03:40-0400 [facility] (83935) Basophils (Bld) 0.0 10*3/uL (NEG) 0 - 0.3 10*3/uL 11-16-2019 PENDING LOCATION [#/Vol] 03:40-0400 [facility] (42190) Basophils/100 0 % (NEG) 0.5 - 1 % 11-16-2019 PENDING LOCATION WBC (Bld) 03:40-0400 [facility] (36636) Bilirubin 0.4 mg/dL (NEG) 0.1 - 1.2 mg/dL 11-16-2019 PENDIN G LOCATION [Mass/Vol] 03:40-0400 [facility] (33337) Calcium 9.1 mg/dL (NEG) 8.5 - 10.2 mg/dL 11-16-2019 PENDI NG LOCATION [Mass/Vol] 03:40-0400 [facility] (73395) Calcium 8.2 mg/dL (L) 8.5 - 10.2 mg/dL 11-16-2019 PENDI NG LOCATION [Mass/Vol] 22:45-0400 [facility] (74788) Chloride 106 mmol/L (NEG) 95 - 106 mmol/L 11-16-2019 PENDI NG LOCATION [Moles/Vol] 03:40-0400 [facility] (03001) Chloride 112 mmol/L (H) 95 - 106 mmol/L 11-16-2019 PENDI NG LOCATION [Moles/Vol] 22:45-0400 [facility] (47227) Cholesterol 120 mg/dL (no code) 180 - 200 mg/dL 11-16-2019 PEND ING LOCATION [Mass/Vol] 22:45-0400 [facility] (24352) Cholesterol in 51 mg/dL (NEG) 11-16-2019 PENDING LOC ATION HDL [Mass/Vol] 22:45-0400 [facility] (32836) Cholesterol in 57 mg/dL (NEG) 0 - 100 mg/dL 11-16-2019 PEN DING LOCATION LDL [Mass/Vol] 22:45-0400 [facility] (19927) Cholesterol in 13 mg/dL (NEG) 11-16-2019 PENDING LOC ATION VLDL [Mass/Vol] 22:45-0400 [facility] (14344) CO2 [Moles/Vol] 26 mmol/L (NEG) 23 - 29 mmol/L 11-16-2019 P ENDING LOCATION 03:40-0400 [facility] (57823) CO2 [Moles/Vol] 27 mmol/L (NEG) 23 - 29 mmol/L 11-16-2019 P ENDING LOCATION 22:45-0400 [facility] (65913) Creatinine 0.78 mg/dL (NEG) 11-16-2019 PENDING LOCATI ON [Mass/Vol] 03:40-0400 [facility] (42454) Creatinine 0.66 mg/dL (NEG) 11-16-2019 PENDING LOCATI ON [Mass/Vol] 22:45-0400 [facility] (65529) Creatinine and > (no code) 11-16-2019 PENDING LOC ATION Glomerular 03:40-0400 [facility] (02924) filtration rate.predicted panel - Serum, Plasma or Blood Creatinine and > (no code) 11-16-2019 PENDING LOC ATION Glomerular 22:45-0400 [facility] (97585) filtration rate.predicted panel - Serum, Plasma or Blood Eosinophils 0.4 10*3/uL (H) 0.05 - 0.5 11-16-2019 PENDING LOCATION (Bld) [#/Vol] 10*3/uL 03:40-0400 [facility] (03169) Eosinophils/100 5 % (NEG) 1 - 4 % 11-16-2019 PENDWY G LOCATION WBC (Bld) 03:40-0400 [facility] (35897) Erythrocyte 15.9 % (H) 11.6 - 14.6 % 11-16-2019 [facility] G LOCATION distribution 03:40-0400 [facility] (62468) width (RBC) [Ratio] Erythrocyte 16.0 % (H) 11.6 - 14.6 % 11-16-2019 [facility] G LOCATION distribution 22:45-0400 [facility] (92833) width (RBC) [Ratio] Glucose 97 mg/dL (NEG) 60 - 125 mg/dL 11-16-2019 PENDING LOCATION [Mass/Vol] 03:40-0400 [facility] ([id number]) Glucose 99 mg/dL (NEG) 60 - 125 mg/dL 11-16-2019 PENDING LOCATION [Mass/Vol] 22:45-0400 [facility] (61129) Hematocrit (Bld) 46 % (NEG) 36.1 - 50.3 % 11-16-2019 P ENDING LOCATION [Volume 03:40-0400 [facility] (77222) fraction] Hematocrit (Bld) 38 % (NEG) 36.1 - 50.3 % 11-16-2019 P ENDING LOCATION [Volume 22:45-0400 [facility] (90922) fraction] Hemoglobin (Bld) 14.2 g/dL (NEG) 12.1 - 17.2 g/dL 11-16-2019 PENDING LOCATION [Mass/Vol] 03:40-0400 [facility] (00746) Hemoglobin (Bld) 11.6 g/dL (NEG) 12.1 - 17.2 g/dL 11-16-2019 PENDING LOCATION [Mass/Vol] 22:45-0400 [facility] (06877) INR Coag 1.0 (NEG) 11-16-2019 PENDING LOCATI ON (Platelet poor 03:40-0400 [facility] (72366) plasma or blood) [Relative time] Lymphocytes 2.2 10*3/uL (NEG) 0.9 - 2.9 11-16-2019 PENDING LOCATION (Bld) [#/Vol] 10*3/uL 03:40-0400 [facility] (36710) Lymphocytes/100 32 % (NEG) 20 - 40 % 11-16-2019 PENDIN G LOCATION WBC (Bld) 03:40-0400 [facility] (71307) Magnesium 2.1 mg/dL (NEG) 1.7 - 2.2 mg/dL 11-16-2019 PENDIN G LOCATION [Mass/Vol] 03:40-0400 [facility] (24857) Magnesium 1.7 mg/dL (NEG) 1.7 - 2.2 mg/dL 11-16-2019 PENDIN G LOCATION [Mass/Vol] 22:45-0400 [facility] (19708) MCH (RBC) 28 pg (NEG) 27 - 31 pg 11-16-2019 PENDING LOC ATION [Entitic mass] 03:40-0400 [facility] ([id number]) MCH (RBC) 27 pg (NEG) 27 - 31 pg 11-16-2019 PENDING LOC ATION [Entitic mass] 22:45-0400 [facility] (66068) MCHC (RBC) 31 g/dL (L) 32 - 36 g/dL 11-16-2019 PENDING LOCATION [Mass/Vol] 03:40-0400 [facility] (20709) MCHC (RBC) 30 g/dL (L) 32 - 36 g/dL 11-16-2019 PENDING LOCATION [Mass/Vol] 22:45-0400 [facility] (85321) MCV (RBC) 89 (NEG) 11-16-2019 PENDING LOCATI ON [Entitic vol] 03:40-0400 [facility] (30343) MCV (RBC) 90 (NEG) 11-16-2019 PENDING LOCATI ON [Entitic vol] 22:45-0400 [facility] (53379) Monocytes (Bld) 0.7 10*3/uL (NEG) 0.3 - 0.9 11-16-2019 PEND ING LOCATION [#/Vol] 10*3/uL 03:40-0400 [facility] (37341) Monocytes/100 10 % (NEG) 2 - 8 % 11-16-2019 PENDING LOCATION WBC (Bld) 03:40-0400 [facility] (89905) MRSA isol Org Negative (no code) 11-16-2019 PENDING LOCA TION specific cx Ql 06:13-0400 [facility] (15606) (Unsp spec) Myoglobin 58.8 ng/mL (NEG) 11-16-2019 PENDING LOCATI ON [Mass/Vol] 03:40-0400 [facility] ([id number]) Neutrophils 3.6 10*3/uL (NEG) 1.7 - 7 10*3/uL 11-16-2019 PE NDING LOCATION (Bld) [#/Vol] 03:40-0400 [facility] (86789) Neutrophils/100 52 % (NEG) 40 - 60 % 11-16-2019 PENDIN G LOCATION WBC (Bld) 03:40-0400 [facility] (58914) Phosphate 3.0 mg/dL (NEG) 2.4 - 4.1 mg/dL 11-16-2019 PENDIN G LOCATION [Mass/Vol] 22:45-0400 [facility] (74572) Platelet mean 10.5 (H) 11-16-2019 PENDING LOCA TION volume (Bld) 03:40-0400 [facility] ([id number]) [Entitic vol] Platelet mean 10.4 (NEG) 11-16-2019 PENDING LOCA TION volume (Bld) 22:45-0400 [facility] ([id number]) [Entitic vol] Platelets (Bld) 270 10*3/uL (NEG) 150 - 450 11-16-2019 PEND ING LOCATION [#/Vol] 10*3/uL 03:40-0400 [facility] ([id number]) Platelets (Bld) 213 10*3/uL (NEG) 150 - 450 11-16-2019 PEND [facility] LOCATION [#/Vol] 10*3/uL 22:45-0400 [facility] (17341) Potassium 4.0 mmol/L (NEG) 3.7 - 5.2 mmol/L 11-16-2019 PEND [facility] LOCATION [Moles/Vol] 03:40-0400 [facility] (84333) Potassium 3.6 mmol/L (NEG) 3.7 - 5.2 mmol/L 11-16-2019 PEND [facility] LOCATION [Moles/Vol] 22:45-0400 [facility] (58442) Protein 7.0 g/dL (NEG) 6.4 - 8.3 g/dL 11-16-2019 PENDING LOCATION [Mass/Vol] 03:40-0400 [facility] ([id number]) PT Coag (PPP) 13.8 s (NEG) 9.4 - 12.5 s 11-16-2019 [facility] LOCATION [Time] 03:40-0400 [facility] ([id number]) RBC (Bld) 5.12 10*6/uL (NEG) 4.2 - 6.1 11-16-2019 PENDING L OCATION [#/Vol] 10*6/uL 03:40-0400 [facility] ([id number]) RBC (Bld) 4.24 10*6/uL (L) 4.2 - 6.1 11-16-2019 PENDING L OCATION [#/Vol] 10*6/uL 22:45-0400 [facility] ([id number]) Sodium 142 mmol/L (NEG) 135 - 145 mmol/L 11-16-2019 PEND [facility] LOCATION [Moles/Vol] 03:40-0400 [facility] (21847) Sodium 145 mmol/L (NEG) 135 - 145 mmol/L 11-16-2019 PEND [facility] LOCATION [Moles/Vol] 22:45-0400 [facility] (62788) Triglyceride 64 mg/dL (NEG) 0 - 150 mg/dL 11-16-2019 [facility] LOCATION [Mass/Vol] 22:45-0400 [facility] (06652) Troponin ng/mL (NEG) 0 - 0.4 ng/mL 11-16-2019 PENDING LOCATION I.cardiac 03:40-0400 [facility] ([id number]) [Mass/Vol] Urea nitrogen 22 mg/dL (H) 7 - 20 mg/dL 11-16-2019 PENDI NG LOCATION [Mass/Vol] 03:40-0400 [facility] (70991) Urea nitrogen 12 mg/dL (NEG) 7 - 20 mg/dL 11-16-2019 PENDI NG LOCATION [Mass/Vol] 22:45-0400 [facility] ([id number]) Urea 28 mg/mg (no code) 6 - 22 mg/mg 11-16-2019 PENDING L OCATION nitrogen/Creatin 03:40-0400 [facility] (66099) ine [Mass ratio] Urea 18 mg/mg (no code) 6 - 22 mg/mg 11-16-2019 PENDING L OCATION nitrogen/Creatin 22:45-0400 [facility] (67296) ine [Mass ratio] WBC (Bld) 6.9 10*3/uL (NEG) 3.5 - 10.5 11-16-2019 PENDING L OCATION [#/Vol] 10*3/uL 03:40-0400 [facility] ([id number]) WBC (Bld) 5.9 10*3/uL (NEG) 3.5 - 10.5 11-16-2019 PENDING L OCATION [#/Vol] 10*3/uL 22:45-0400 [facility] (50105) Vital Signs No Information Interventions No Information Plan of Treatment No Information Goals No Information Social History No Information Functional Status No Information Mental Status No Information Encounters Encounter Normalized Encounter Encounter Diagnosis Care Provi jose Organization Date Type 11-16-2019 Emergency department no information OSMEL MEYER MD [facility] Via Kayla patient visit (no phone) [facility] (no phone) 07-04-2019 Emergency department no information no name [...] no name no organization name patient visit 11-16-2019 Evaluation and no information KRISS MORROW MD (no [facility] - management of phone) [facility] 11-17-2019 inpatient (no phone) 07-04-2019 Evaluation and no information NAPOLEON Bell [facility] - management of (no phone) [facility] 07-06-2019 inpatient (no phone) 01-20-2019 Evaluation and no information no name no organ ization name - management of 01-21-2019 inpatient 06-20-2016 Evaluation and no information no name no organ ization name - management of 06-21-2016 inpatient 11-26-2019 Patient encounter no information SHERINE HARTLEY DO (no [facility] procedure phone) [facility] (no phone) 11-16-2019 Patient encounter no information KRISS MORROW MD (no [facility] - procedure phone) [facility] 11-17-2019 (no phone) 07-04-2019 Patient encounter no information no name no or ganization name - procedure 07-06-2019 01-20-2019 Patient encounter no information no name no or ganization name - procedure 01-21-2019 12-13-2018 Patient encounter no information no name no or ganization name procedure 11-26-2018 Patient encounter no information SHREE DELVALLE MD (n o [facility] procedure phone) [facility] (no phone) 10-17-2018 Patient encounter no [...] This clinical document has been generated using [employer] software that has been certified by the Office of the National Coordinator for Health Information Technology (ONC 15.99.04.3023.[id number]) and the National Committee for Enamel Burner (NCQA, as an eMeasure certified technology). FOR [...] BASED ON T HE PRIMARY CLINICAL RECORDS. [employer] [facility]. provides no warranty or guara ntee of the accuracy or completeness of information in this document.The followi ng information is based on time limited clinical information
[2019-11-30] MEDS ORDERED: NS IV 1000 ML 1,000 ML ONE (01:27)
[2019-11-30] MEDS ORDERED: ASPIRIN 81 MG CHEW (CHILDREN'S ASA) ONE (01:27)
[2019-11-30] MEDS ORDERED: ACETAMINOPHEN 500 MG TAB (TYLENOL) ONE (01:28)
[2019-11-30] MEDS ORDERED: ACETAMINOPHEN 500 MG TAB (TYLENOL) PO ONE (01:30)
[2019-11-30] MEDS ORDERED: NS IV 1000 ML 1,000 ML IV SCH (01:30)
[2019-11-30] MEDS ORDERED: ASPIRIN 81 MG CHEW (CHILDREN'S ASA) PO ONE (01:30)
[2019-11-30 01:47] LABS: BASOPHILS % (AUTO) 0 % (0-10); EOSINOPHILS # (AUTO) 0.1 10^3/uL (0.0-0.3); EOSINOPHILS % (AUTO) 1 % (0-10); HEMATOCRIT 42 % (35-52); HEMOGLOBIN 13.2 G/DL (11.5-16.0); LYMPHOCYTES # (AUTO) 0.5 X 10^3 (1.0-4.0); LYMPHOCYTES % (AUTO) 4 % (12-44); MEAN CORPUSCULAR HEMOGLOBIN 28 PG (25-34); MEAN CORPUSCULAR HGB CONC 32 G/DL (32-36); MEAN CORPUSCULAR VOLUME 89 FL (80-99); MEAN PLATELET VOLUME 10.4 FL (7.4-10.4); MONOCYTES # (AUTO) 0.9 X 10^3 (0.0-1.0); MONOCYTES % (AUTO) 7 % (0-12); NEUTROPHILS # (AUTO) 11.8 X 10^3 (1.8-7.8); NEUTROPHILS % (AUTO) 88 % (42-75); PLATELET COUNT 210 10^3/uL (130-400); RED CELL DISTRIBUTION WIDTH 16.1 % (10.0-14.5); WHITE BLOOD COUNT 13.3 10^3/uL (4.3-11.0)
--- NOTE | 2019-11-30 01:49 | ED General ---
General Chief Complaint: Chest Pain Stated Complaint: CP Nursing Triage Note: Pt to RM 10 via WC with c/o midline CP and chills. Pt reports Hx of Afib. Has fever of 102.2F on arrival. Nursing Sepsis Screen: No Definite Risk Source of Information: Patient, Family, Old Records Exam Limitations: No Limitations History of Present Illness Date Seen by Provider: Nov 30, 2019 Time Seen by Provider: 01:17 Initial Comments This 84-year-old woman presents to the emergency room with complaint of central chest pain, shortness of breath, and chills. She is found to have a temperature of 102.2 on arrival. She has history of atrial fibrillation with RVR for which she was admitted November 15. She is in sinus rhythm at this time. She reports having a fall last and injuring her left hand. She presented to urgent care and had the laceration repaired with sutures. This area on her hand and wrist is erythematous. She denies cough or known exposure to persons with coronavirus. She is noted to be hypoxic with oxygen saturation of 85 percent on room air. Her quantometer operator is Dr. Kaplan and her primary care provider is in [place]. Allergies and Home Medications Allergies Coded Allergies: Sulfa (Sulfonamide Antibiotics) (Verified Allergy, Unknown, hives, 11/16/19) Home Medications Amiodarone HCl 200 Mg Tablet, 200 MG PO UD Take 2 tablets twice daily for one week then Take one tablet twice daily Prescribed by: ESTRELLA KAPLAN on 11/17/19 0838 Apixaban 2.5 Mg Tablet, 2.5 MG PO BID, (Reported) Aspirin 81 Mg Tablet.dr, 81 MG PO HS, (Reported) Carbidopa/Levodopa 1 Each Tablet, 2 EA PO TID, (Reported) Cholecalciferol (Vitamin D3) 50 Mcg Capsule, 50 MCG PO DAILY, (Reported) Cyanocobalamin (Vitamin B-12) 1,000 Mcg Capsule, 2,000 MCG PO DAILY, (Reported) Diazepam 10 Mg Tablet, 10 MG PO HS PRN for ANXIETY, (Reported) Diclofenac Sodium 50 Mg Tablet.dr, 50 MG PO BID, (Reported) Docusate Sodium 100 Mg Capsule, 200 MG PO BID, (Reported) TAKES 2 (100 MG) CAPSULES Hydrocodone/Acetaminophen 1 Each Tablet, 1-2 EA PO Q4 -6H PRN for PAIN-MODERATE (5-7), (Reported) Lisinopril 20 Mg Tablet, 40 MG PO DAILY, (Reported) TAKES 2 (20MG) TABS Lovastatin 10 Mg Tablet, 10 MG PO HS, (Reported) Metoprolol Succinate 25 Mg Tab.er.24h, 25 MG PO DAILY, (Reported) Pantoprazole Sodium 40 Mg Tablet.dr, 40 MG PO DAILY PRN for HEARTBURN, (Re ported) Ropinirole HCl 1 Mg Tablet, 1 MG PO TID, (Reported) Tramadol HCl 50 Mg Tablet, 50 MG PO Q6H PRN for PAIN-MODERATE, (Reported) Vit A/Vit C/Vit E/Zinc/Copper 1 Each Tablet, 1 EACH PO BID, (Reported) Patient Home Medication List Home Medication List Reviewed: Yes Review of Systems Review of Systems Constitutional: see HPI EENTM: no symptoms reported Respiratory: see HPI Cardiovascular: see HPI Gastrointestinal: no symptoms reported Genitourinary: no symptoms reported : No Musculoskeletal: see HPI Skin: see HPI Psychiatric/Neurological: No Symptoms Reported Hematologic/Lymphatic: No Symptoms Reported Immunological/Allergic: no symptoms reported Past Flbmuek-Fofhcb-Pjoejb Hx Past Med/Social Hx: Reviewed Nursing Past Med/Soc Hx Patient Social History Alcohol Use: Rarely Uses Recreational Drug Use: No Smoking Status: Former Smoker Type Used: Cigarettes Former Smoker, Quit: Jun 17, 1999 Recent Foreign Travel: No Contact w/Someone Who Travel: No Recent Infectious Disease Expo: No Recent Hopitalizations: No Immunizations Up To Date Tetanus Booster (TDap): Less than 5yrs PED Vaccines UTD: Yes Date of Pneumonia Vaccine: Feb 20, 2016 Date of Influenza Vaccine: Jun 10, 2019 Seasonal Allergies Seasonal Allergies: Yes Past Medical History Surgeries: Yes Abdominal, Cardiac, Hysterectomy, Orthopedic, Tonsillectomy Respiratory: No Cardiac: Yes Atrial Fibrillation, Heart Attack, Hypertension Neurological: Yes (tremor) Stroke Reproductive Disorders: No 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 No Pertinent Family Hx Physical Exam-Suspected Sepsis Physical Exam Vital Signs Vital Signs - First Documented 11/30/19 01:21 Temp 39.0 Pulse 72 Resp 17 B/P (MAP) 134/72 (92) Capillary Refill : Less Than 3 Seconds Blood Pressure Mean: 92 Height, Weight, BMI Height: 5'7.00" Weight: 123lbs. 2.0oz. [id number]; 21.00 BMI Method:Stated General Appearance: No Apparent Distress, WD/WN, Thin HEENT: PERRL/EOMI, Normal ENT Inspection Neck: Normal Inspection Respiratory: No Accessory Muscle Use, No Respiratory Distress, Crackles (Faint in the left base) Cardiovascular: Regular Rate, Rhythm, No Edema, No Murmur, Normal Peripheral Pulses Gastrointestinal: Normal Bowel Sounds, Non Tender, Soft Extremity: Normal Inspection, No Pedal Edema Neurologic/Psychiatric: Alert, Oriented x3, No Motor/Sensory Deficits, Normal Mood/Affect, yardage caller II-XII Norm as Tested Skin: normal color, warm/dry Focused Exam Lactate Level 11/30/19 01:30: Lactic Acid Level 1.45 Lactic Acid Level Progress/Results/Core Measures Suspected Sepsis Recent Fever Within 48 Hours: Yes Infection Criteria Present: Suspected New Infection New/Unexplained Altered Menta: No Sepsis Screen: No Definite Risk SIRS Temperature: Pulse: 72 Respiratory Rate: 17 Laboratory Tests 11/30/19 01:30: White Blood Count 13.3H Blood Pressure 134 /72 Mean: 92 11/30/19 01:30: Lactic Acid Level 1.45 Laboratory Tests 11/30/19 01:30: Creatinine 0.85, INR Comment 1.2, Platelet Count 210, Total Bilirubin 0.6 Results/Orders Lab Results Laboratory Tests Test 11/30/19 01:30 11/30/19 01:38 11/30/19 04:38 Range/Units White Blood Count 13.3 H 4.3-11.0 10^3/uL Red Blood Count 4.69 4.35-5.85 10^6/uL Hemoglobin 13.2 11.5-16.0 G/DL Hematocrit 42 35-52 % Mean Corpuscular Volume 89 80-99 FL Mean Corpuscular Hemoglobin 28 25-34 PG Mean Corpuscular Hemoglobin Concent 32 32-36 G/DL Red Cell Distribution Width 16.1 H 10.0-14.5 % Platelet Count 210 130-400 10^3/uL Mean Platelet Volume 10.4 7.4-10.4 FL Neutrophils (%) (Auto) 88 H 42-75 % Lymphocytes (%) (Auto) 4 L 12-44 % Monocytes (%) (Auto) 7 0-12 % Eosinophils (%) (Auto) 1 0-10 % Basophils (%) (Auto) 0 0-10 % Neutrophils # (Auto) 11.8 H 1.8-7.8 X 10^3 Lymphocytes # (Auto) 0.5 L 1.0-4.0 X 10^3 Monocytes # (Auto) 0.9 0.0-1.0 X 10^3 Eosinophils # (Auto) 0.1 0.0-0.3 10^3/uL Basophils # (Auto) 0.0 0.0-0.1 10^3/uL Neutrophils % (Manual) 89 % Lymphocytes % (Manual) 5 % Monocytes % (Manual) 4 % Band Neutrophils 2 % Blood Morphology Comment NORMAL Prothrombin Time 15.9 H 12.2-14.7 SEC INR Comment 1.2 0.8-1.4 Activated Partial Thromboplast Time 32 24-35 SEC D-Dimer 0.37 0.00-0.49 UG/ML Sodium Level 141 135-145 MMOL/L Potassium Level 3.7 3.6-5.0 MMOL/L Chloride Level 106 98-107 MMOL/L Carbon Dioxide Level 24 21-32 MMOL/L Anion Gap 11 5-14 MMOL/L Blood Urea Nitrogen 22 H 7-18 MG/DL Creatinine 0.85 0.60-1.30 MG/DL Estimat Glomerular Filtration Rate > 60 BUN/Creatinine Ratio 26 Glucose Level 105 70-105 MG/DL Lactic Acid Level 1.45 0.50-2.00 MMOL/L Calcium Level 8.6 8.5-10.1 MG/DL Corrected Calcium 8.8 8.5-10.1 MG/DL Magnesium Level 1.9 1.6-2.4 MG/DL Total Bilirubin 0.6 0.1-1.0 MG/DL Aspartate Amino Transf (AST/SGOT) 13 5-34 U/L Alanine Aminotransferase (ALT/SGPT) 8 0-55 U/L Alkaline Phosphatase 72 40-136 U/L Myoglobin 75.3 10.0-92.0 NG/ML Troponin I < 0.028 <0.028 NG/ML C-Reactive Protein High Sensitivity 4.28 H 0.00-0.50 MG/DL B-Type Natriuretic Peptide 419.8 H <100.0 PG/ML Total Protein 6.5 6.4-8.2 GM/DL Albumin 3.7 3.2-4.5 GM/DL Procalcitonin 0.35 H <0.10 NG/ML Urine Color YELLOW Urine Clarity SL CLOUDY Urine pH 6.0 5-9 Urine Specific [place] 1.025 H 1.016-1.022 Urine Protein 1+ H NEGATIVE Urine Glucose (UA) NEGATIVE NEGATIVE Urine Ketones NEGATIVE NEGATIVE Urine Nitrite POSITIVE H NEGATIVE Urine Bilirubin NEGATIVE NEGATIVE Urine Urobilinogen 0.2 < = 1.0 MG/DL Urine Leukocyte Esterase 2+ H NEGATIVE Urine RBC (Auto) 2+ H NEGATIVE Urine RBC 10-25 H /HPF Urine WBC 50-100 H /HPF Urine Squamous Epithelial Cells 2-5 /HPF Urine Crystals NONE /LPF Urine Bacteria LARGE H /HPF Urine Casts NONE /LPF Urine Mucus MODERATE H /LPF Urine Culture Indicated CULTURE PENDING Micro Results Microbiology 11/30/19 Influenza Types A,B Antigen (HIEU) - Final, Complete My Orders Orders - KING CHOUDHURY MD Aspirin Chewable Tablet (Baby Aspirin Ch (11/30/19 01:27) Ns Iv 1000 Ml (Sodium Chloride 0.9%) (11/30/19 01:27) Acetaminophen Tablet (Tylenol Tablet) (11/30/19 01:28) Ns Iv 1000 Ml (Sodium Chloride 0.9%) (11/30/19 01:30) Aspirin Chewable Tablet (Baby Aspirin Ch (11/30/19 01:30) Acetaminophen Tablet (Tylenol Tablet) (11/30/19 01:30) Ekg Tracing (11/30/19:31) Continuous Ekg Monitoring (11/30/19:31) Ed Iv/Invasive Line Start (11/30/19:31) Cbc With Automated Diff (11/30/19:34) Magnesium (11/30/19:34) Chest 1 View, Ap/Pa Only (11/30/19:34) Ekg Tracing (11/30/19:34) Comprehensive Metabolic Panel (11/30/19 01:34) Myoglobin Serum (11/30/19:34) Protime With Inr (11/30/19 01:34) Partial Thromboplastin Time (11/30/19 01:34) O2 (11/30/19 01:34) Monitor-Rhythm Ecg Trace Only (11/30/19 01:34) Lipid Panel (12/01/19 06:00) Ed Iv/Invasive Line Start (11/30/19 01:34) BNP (11/30/19 01:34) Troponin I (11/30/19 01:34) Blood Culture (11/30/19 01:34) Sputum Culture (11/30/19 01:34) Urinalysis (11/30/19 01:34) Urine Culture (11/30/19 01:34) Ed Iv/Invasive Line Start (11/30/19 01:34) Vital Signs Adult Sepsis Patie Q15M (11/30/19 01:34) Remove Rings In Anticipation O (11/30/19 01:34) Lactic Acid Analyzer (11/30/19 01:34) Influenza A And B Antigens (11/30/19 01:34) Coronavirus Sars-Cov-2 So 2018 (11/30/19 01:34) Procalcitonin (Pct) (11/30/19 01:34) Hs C Reactive Protein (11/30/19 01:34) Manual Differential (11/30/19 01:30) Piperacillin Sodium/Tazobactam (Zosyn Vi (11/30/19 02:30) Fibrin Degradation Products (11/30/19 01:30) Medications Given in ED Current Medications Medications Dose Ordered Sig/Ysabel Route Start Time Stop Time Status Last Admin Dose Admin Acetaminophen 1,000 mg ONCE ONCE PO 11/30/19 01:30 11/30/19 01:31 DC 11/30/19 01:35 1,000 MG Aspirin 243 mg ONCE ONCE PO 11/30/19 01:30 11/30/19 01:31 DC 11/30/19 01:35 243 MG Piperacillin Sod/ Tazobactam Sod 4.5 gm/Sodium Chloride 100 ml @ 200 mls/hr ONCE ONCE IV 11/30/19 02:30 11/30/19 02:59 DC 11/30/19 04:25 200 MLS/HR Vital Signs/I&O 11/30/19 11/30/19 11/30/19 11/30/19 01:20 01:20 01:21 01:35 Temp 39.0 39.0 Pulse 72 Resp 17 B/P (MAP) 134/72 (92) Pulse Ox 94 95 O2 Delivery Nasal Cannula Nasal Cannula Nasal Cannula O2 Flow Rate 2.00 2.0 2.00 11/30/19 11/30/19 05:36 06:54 Temp 31.7 Pulse 49 45 Resp 18 18 B/P (MAP) 83/57 99/52 (68) Pulse Ox 99 95 O2 Delivery Nasal Cannula Room Air O2 Flow Rate 2.00 Capillary Refill : Less Than 3 Seconds Blood Pressure Mean: 92 Progress Note : Progress Note Patient received aspirin and Tylenol along with a liter of IV fluid. She felt better with these interventions. Cardiac workup was unremarkable. Sepsis was suspected based on labs and fever. Sources are uncertain but could be urinary tract infection, infection at the left hand injury, or COVID-19. Patient was swabbed for COVID-19. Antibiotic therapy was started with Zosyn. Patient was admitted largely due to her age, hypoxia, and concern for possible COVID-19. ECG Initial ECG Impression Date: Nov 30, 2019 Initial ECG Impression Time: : Initial ECG Rate: 70 Initial ECG Rhythm: Normal Sinus Comment Normal sinus rhythm with no ST elevation or depression. No abnormal intervals. LVH by repolarization abnormality. Diagnostic Imaging Diagonstic Imaging: Xray Plain Films/CT/US/NM/MRI: chest Comments Chest x-ray viewed by me. Report not yet available. No acute abnormality appreciated. Departure Communication (Admissions) Time/Spoke to Admitting Phy: 04:30 Dr. Varner Impression Primary Impression: Sepsis Qualified Codes: A41.9 - Sepsis, unspecified organism Additional Impressions: Hypoxia Chest pain Qualified Codes: R07.9 - Chest pain, unspecified Urinary tract infection Qualified Codes: N39.0 - Urinary tract infection, site not specified Disposition: ADMITTED INPATIENT Condition: Improved Admissions Decision to Admit Reason: Admit from ER (General) Decision to Admit/Date: Nov 30, 2019 Time/Decision to Admit Time: 04:30 Departure-Patient Inst. Referrals: NO,LOCAL PHYSICIAN (PCP/Family) Primary Care Physician KING CHOUDHURY MD Nov 30, 2019 01:49
[2019-11-30 01:59] LABS: INR 1.2 (0.8-1.4); PROTHROMBIN TIME PATIENT 15.9 SEC (12.2-14.7)
[2019-11-30 02:03] LABS: ALANINE AMINOTRANSFERASE 8 U/L (0-55); ALBUMIN 3.7 GM/DL (3.2-4.5); ALKALINE PHOSPHATASE 72 U/L (40-136); BILIRUBIN,TOTAL 0.6 MG/DL (0.1-1.0); BUN/CREATININE RATIO 26; CALCIUM 8.6 MG/DL (8.5-10.1); CARBON DIOXIDE 24 MMOL/L (21-32); CHLORIDE 106 MMOL/L (98-107); CREATININE SERUM 0.85 MG/DL (0.60-1.30); GFR ESTIMATED > 60; GLUCOSE 105 MG/DL (70-105); MAGNESIUM 1.9 MG/DL (1.6-2.4); POTASSIUM 3.7 MMOL/L (3.6-5.0); SODIUM 141 MMOL/L (135-145); TOTAL PROTEIN 6.5 GM/DL (6.4-8.2)
[2019-11-30] MEDS ORDERED: PIPERACILLIN SODIUM/TAZOBACTAM 4.5 GM in NS (IVPB) 100 ML IV ONE (02:30)
[2019-11-30 02:31] LABS: BAND NEUTROPHILS 2 %; LYMPHOCYTES % (MANUAL) 5 %; MONOCYTES % (MANUAL) 4 %; NEUTROPHILS % (MANUAL) 89 %
[2019-11-30 02:32] LABS: RBC MORPH NORMAL
[2019-11-30 03:37] LABS: FIBRIN DEGRADATION PRODUCTS 0.37 UG/ML (0.00-0.49)
[2019-11-30 04:47] LABS: BILIRUBIN,URINE NEGATIVE (NEGATIVE); CLARITY,URINE SL CLOUDY; COLOR,URINE YELLOW; GLUCOSE, URINE (UA) NEGATIVE (NEGATIVE); KETONES,URINE NEGATIVE (NEGATIVE); LEUKOCYTE ESTERASE ,URINE 2+ (NEGATIVE); NITRITE,URINE POSITIVE (NEGATIVE); PROTEIN,URINE 1+ (NEGATIVE)
[2019-11-30 04:58] LABS: BACTERIA,URINE LARGE /HPF; WBC,URINE 50-100 /HPF
--- OUTSIDE RECORDS SUMMARY | 2019-11-30 05:05 | XMS REPORT ---
Author Author [employer] [facility] YellowSchedule [facility] CenterBackerKit 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 Name Role Phone CARLA HIRSCH BIANCA Unavailable [...] Drug Allergy Sulfonamides Sulfonamides 12-21-2008 - hiv TEAGAN HLEEN Not Available (22 sources.) (antibiotic) (Antibiotic) MD ROSY (78051 ) Medications No Information Problems Active Problems Problem Normalized Date Last Normalized Normalized Provider Fa cility Classification Problem(s) Recorded Problem Problem Sta tus Duration Congestive Acute Chronic Active [facility] Via heart failure; diastolic MD Kayla GALLEGOS nonhypertensiv (congestive) Hospital - e (7 sources.) heart failure [place] (16793) Osteoporosis Age-related Chronic Active [facility] Via (7 sources.) osteoporosis MD Kayla GALLEGOS without Hospital - current [place] pathological (84298) fracture Peripheral and Atherosclerosi Chronic Active WILL CHILDS [facility] Via visceral s of renal MD Garza atherosclerosi artery Hospital - s (8 sources.) Translations: [place] [ (22203) ATHEROSCLEROSI S OF AORTA] 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 Active WILL RBO MAN , [facility] Via atherosclerosi c heart MD Kayla faust and other disease of Hospital - heart disease akhiok [place] (32 sources.) coronary (85343) artery without angina pectoris Translations: [ OLD MYOCARDIAL INFARCTION] Acute Cerebral Chronic Active FLORENCIA TAPIA , Not Avai lable cerebrovascula infarction, DO (59624) r disease (5 unspecified sources.) Other bone Disorder of Episodic Active NAPOLEON Not Avail able disease and bone and MD ROSY (78356) musculoskeleta cartilage, l deformities unspecified (1 source.) Spondylosis; Dorsalgia, 11-18-2019 - Episodic Active WILL RED MAN , [facility] Via intervertebral unspecified MD Garza disc Hospital - disorders; [place] other back (35506) problems (21 sources.) Chronic Emphysema, Chronic Active [facility] Via obstructive unspecified MD Kayla GALLEGOS pulmonary [facility] - disease and [place] bronchiectasis (85434) (7 sources.) Other Encounter for 11-06-2019 - Episodic Active ADAM STAUFFER EW Not Available screening for screening (23496) suspected mammogram for conditions malignant (not mental neoplasm of disorders or breast infectious Translations: disease) (13 [ SCRN sources.) MAMMO-HIGH RISK PT, MALIGNANT NEOPL, OTH ABN AND INCONCLUSIVE FINDINGS ON DX ] Essential Essential 11-18-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 Active FLORENCIA TAPIA , Not Available hypertension (primary) DO (64357) (24 sources.) hypertension Other Facial Episodic Active FLORENCIA TAPIA , Not Avai lable connective weakness DO (44450) tissue disease (5 sources.) Anxiety Generalized 11-18-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 Active FLORENCIA TAPIA , Not Available disorders (24 anxiety DO (68239) sources.) disorder Translations: [ ANXIETY DISORDER, UNSPECIFIED] Paralysis (5 Hemiplegia, Chronic Active FLORENCIA TAPIA , No t Available sources.) unspecified DO (80956) affecting left nondominant side Disorders of Hyperlipidemia 11-18-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 Active FLORENCIA TAPIA , Not Available lipid , unspecified DO (98428) metabolism (19 sources.) Hypertension Hypertensive Chronic Active [facility] Vi a with heart disease MD Kayla GALLEGOS complications with heart Hospital - and secondary failure [place] hypertension (71028) (7 sources.) Other Hypotension, 11-18-2019 - Episodic Active KRISSMAX Martin , [facility] Via circulatory unspecified MD Garza disease (7 Hospital - sources.) [place] (82373) Other roasterman 11-18-2019 - Episodic Active [facility] Via aftercare (14 (current) use MD Kalya GALLEGOS sources.) of Hospital - anticoagulants [place] (16942) Cancer of Malignant Chronic Active ADAM JON Not Avail able breast (1 neoplasm of (47096) source.) breast (female), unspecified Acute Myocardial Chronic Active WILL CHILDS , [facility] Vi a myocardial infarction MD Garza infarction (11 type 2 Hospital - sources.) [place] (63813) 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 Active TEAGANFAWN MORROW , [facility] Via stenosis of stenosis of MD Garza precerebral unspecified Hospital - arteries (7 carotid artery [place] sources.) (65549) Other acquired Other forms of Chronic Active OSMEL MADDI , [facility] Via deformities (1 scoliosis, DC Kayla source.) lumbar region Hospital [facility] (18533) Other upper Other seasonal Chronic Active WILL CHILDS , [facility] Via respiratory allergic MD Garza disease (14 rhinitis Hospital - sources.) [place] (79807) Parkinson`s Parkinson's 11-18-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 Active WILL TORRES , [facility] Via disease (14 disease MD Garza sources.) Hospital [facility] (33358) Screening and Personal 11-18-2019 - Episodic Active GILBERTO VAIBHAV , DO [facility] Via history of history of [facility] mental health nicotine Hospital - and substance dependence [place] abuse codes (40206) (26 sources.) Other Personal 11-18-2019 - Episodic Active GILBERTO VAIBHAV , DO [facility] Via circulatory history of Kayla disease (19 transient Hospital - sources.) ischemic [place] attack (TIA), (12674) and cerebral infarction without residual deficits 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-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 Active GILBERTO VAIBHAV , DO [facility] Via 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, Hospital - (26 sources.) bilateral [place] (34507) Other Presence of Chronic Active GILBERTO VAIBHAV , DO [facility] V ia connective left Kayla tissue disease artificial hip Hospital - (5 sources.) joint [place] (45395) 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-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 Active WILL AMADEO , [facility] Via connective left MD Garza tissue disease [facility] Hospital - (21 sources.) shoulder joint [place] (45872) Other Presence of Chronic Active [facility] Via connective right MD Kayla GALLEGOS tissue disease [facility] Hospital - (7 sources.) shoulder joint [place] (77731) Osteoarthritis Primary 11-18-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 Active WILL RED BRIAN , [facility] Via (21 sources.) osteoarthritis MD Garza , unspecified Hospital - site [place] (35848) Other acquired Scoliosis, Chronic Active [facility] Vi a deformities (7 unspecified MD Kayla GALLEGOS sources.) Hospital - [place] (95248) Spondylosis; Spondylosis Chronic Active OSMEL MADDI , [facility] 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 Kayla disc myelopathy or Hospital - disorders; radiculopathy, [place] other back lumbosacral (39546) problems (1 region source.) Other nervous Tremor, Episodic Active CARLA SNOOK Not Av ailable system unspecified (49671) disorders (9 sources.) Cardiac Unspecified 11-18-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 Active WILL CHILDS , [facility] Via dysrhythmias atrial MD Garza (21 sources.) fibrillation Hospital - Translations: [place] [ PAROXYSMAL (80823) ATRIAL FIBRILLATION] Urinary tract Urinary tract Episodic Active FLORENCIA TAPIA , Not Available infections (5 infection, DO (67019) sources.) site not specified Past or Other Problems Problem Normalized Date Last Normalized Normalized Provider Fa cility Classification Problem(s) Recorded Problem Problem Sta tus Duration Residual Acquired Episodic Completed GILBERTO VAIBHAV , DO [facility] Via codes; absence of Kayla unclassified both cervix Hospital - (5 sources.) and uterus [place] (22493) Residual Acquired Episodic Completed GILBERTO VAIBHAV , DO [facility] Via codes; absence of Kayla unclassified other organs Hospital - (5 sources.) [place] (81702) Allergic Allergy status Episodic Completed GILBERTO VAIBHAV , DO [facility] Via reactions (5 to Kayla sources.) sulfonamides Hospital - status [place] (25700) External cause Bathroom of no information no information GILBERTO R RUTHY , DO [facility] Via codes: Place unspecified Kayla of occurrence [facility] Hospital - (3 sources.) nal (private) [place] residence ([address]297) single-family (private) house as the place of occurrence of the external cause External cause Bathroom of Episodic Completed GILBERTO VAIBHAV , DO [facility] Via codes: Place unspecified Kayla of occurrence [facility] Hospital - (2 sources.) nal (private) [place] residence (46020) single-family (private) house as the place of occurrence of the external cause Other nervous Dick's palsy Episodic Completed WILL CHILDS [facility] Via system MD Kayla de la torre (7 Hospital - sources.) [place] () External cause Fall on same no information no information GILBERTO VAIBHAV , DO [facility] Via codes: Fall (3 level from Kayla sources.) slipping, Hospital - tripping and [place] stumbling (79255) without subsequent striking against object, initial encounter External cause Fall on same Episodic Completed GILBERTO VAIBHAV , DO [facility] Via codes: Fall (2 level from Kayla sources.) slipping, Hospital - tripping and [place] stumbling (45914) without subsequent striking against object, initial encounter Fluid and Hypokalemia Episodic Completed WILL CHILDS [facility] V ia electrolyte MD Garza disorders (7 Hospital - sources.) [place] () Other roasterman Episodic Completed GILBERTO VAIBHAV , DO [facility] Via aftercare (12 (current) use Kayla sources.) of aspirin [facility] (29726) Nonspecific Other chest Episodic Completed WILL CHILDS [facility] Via chest pain (3 pain Kayla sources.) [facility] (38090) Fracture of Unspecified Episodic Completed GILBERTO VAIBHAV , DO [facility] Via upper limb (5 fracture of Kayla sources.) shaft of [facility] humerus, right [place] arm, initial (05289) encounter for closed fracture Other injuries Unspecified Episodic Completed GILBERTO VAIBHAV , DO [facility] Via and conditions injury of [facility] due to right shoulder Hospital - external and upper arm, [place] causes (5 initial (56474) sources.) encounter Other Wedge Episodic Completed OSMEL LINDA [facility] Via fractures (1 compression DC Kayla source.) fracture of [facility] - unspecified [place] lumbar (18373) vertebra, initial encounter for closed fracture Procedures Procedure Normalized Procedure Procedure Result Performer Facility Date 01-21-2019 FLUOROSCOPY OF no information no name [facility] Via Kayla ABDOMINAL AORTA USING [facility] LOW ([id number]) 07-05-2019 FLUOROSCOPY OF LEFT no information no name [facility] Via Kayla HEART USING LOW OSMO [facility] ([id number]) 01-21-2019 FLUOROSCOPY OF LEFT no information no name [facility] Via Kayla HEART USING LOW [facility] (59212) 07-05-2019 FLUOROSCOPY OF MULT no information no name [facility] Via Kayla COR ART USING [facility] (77805) 01-21-2019 FLUOROSCOPY OF MULT no information no name [facility] Via Kayla COR ART USING [facility] ([id number]) 07-05-2019 FLUOROSCOPY OF no information no name [facility] Via Kayla THORACIC AORTA USING [facility] (49183) 07-05-2019 MEASURE OF CARDIAC no information no name [facility] Via Kayla SAMPL PRESSURE, [facility] (16662) 01-21-2019 MEASURE OF CARDIAC no information no name [facility] Via Kayla SAMPL PRESSURE, [facility] ([id number]) Immunizations No Information Results Test Name Value Interpretation Reference Range Date Time Fa cility (Normalized) (Normalized) (Medline Reference) not yet categorized on 2019-11-29 FLU RESULT Negative (no code) 11-29-2019 PENDING LOCATI ON 21:38-0400 [facility] ([id number]) PROCALCITONIN 0.35 (H) 11-29-2019 PENDING LOCA TION (PCT) 21:300400 [facility] (42534) laboratory on 2019-11-29 Albumin 3.7 g/dL (NEG) 3.4 - 5.4 g/dL 11-29-2019 PENDING LOCATION [Mass/Vol] 21:30-0400 [facility] (00333) ALP [Catalytic 72 U/L (NEG) 44 - 147 U/L 11-29-2019 PEND ING LOCATION activity/Vol] 21:30-0400 [facility] ([id number]) ALT [Catalytic 8 U/L (NEG) 4 - 40 U/L 11-29-2019 PENDIN G LOCATION activity/Vol] 21:30-0400 [facility] (39295) Anion gap 11 mmol/L (NEG) 3 - 11 mmol/L 11-29-2019 PENDING LOCATION [Moles/Vol] 21:30-0400 [facility] (82058) aPTT Coag (PPP) 32 s (NEG) 25 - 35 s 11-29-2019 PENDIN LOCATION [Time] 21:30-0400 [facility] ([id number]) AST [Catalytic 13 U/L (NEG) 10 - 34 U/L 11-29-2019 PENDI NG LOCATION activity/Vol] 21:30-0400 [facility] (52362) Band form 2 % (no code) 0 - 3 % 11-29-2019 PENDING LOCA TION neutrophils/100 21:30-0400 [facility] (67910) WBC (Bld) Basophils (Bld) 0.0 10*3/uL (NEG) 0 - 0.3 10*3/uL 11-29-2019 PENDING LOCATION [#/Vol] 21:30-0400 [facility] (58262) Basophils/100 0 % (NEG) 0.5 - 1 % 11-29-2019 PENDING LOCATION WBC (Bld) 21:30-0400 [facility] (78639) Bilirubin 0.6 mg/dL (NEG) 0.1 - 1.2 mg/dL 11-29-2019 PENDIN G LOCATION [Mass/Vol] 21:30-0400 [facility] (20271) Calcium 8.6 mg/dL (NEG) 8.5 - 10.2 mg/dL 11-29-2019 PENDI NG LOCATION [Mass/Vol] 21:30-0400 [facility] (82970) Calcium 8.8 mg/dL (NEG) 8.5 - 10.2 mg/dL 11-29-2019 PENDI NG LOCATION [Mass/Vol] 21:30-0400 [facility] (93668) Chloride 106 mmol/L (NEG) 95 - 106 mmol/L 11-29-[facility] [Moles/Vol] 21:30-0400 [facility] (54685) CO2 [Moles/Vol] 24 mmol/L (NEG) 23 - 29 mmol/L 11-29-2019 P ENDING LOCATION 21:30-0400 [facility] (41261) Creatinine 0.85 mg/dL (NEG) 11-29-2019 PENDING LOCATI ON [Mass/Vol] 21:30-0400 [facility] (39501) Creatinine and > (no code) 11-29-2019 PENDING LOC ATION Glomerular 21:30-0400 [facility] (73616) filtration rate.predicted panel - Serum, Plasma or Blood CRP [Mass/Vol] 4.28 (H) 11-29-2019 PENDING LOC ATION 21:30-0400 [facility] ([id number]) Eosinophils 0.1 10*3/uL (NEG) 0.05 - 0.5 11-29-2019 PENDING LOCATION (Bld) [#/Vol] 10*3/uL 21:30-0400 [facility] (38914) Eosinophils/100 1 % (NEG) 1 - 4 % 11-29-[facility] WBC (Bld) 21:30-0400 [facility] (99814) Erythrocyte 16.1 % (H) 11.6 - 14.6 % 11-29-2019 [facility] distribution 21:30-0400 [facility] (44911) width (RBC) [Ratio] Fibrin D-dimer 0.37 (NEG) 11-29-2019 PENDING LOC ATION FEU (PPP) 21:30-0400 [facility] (18065) [Mass/Vol] Glucose 105 mg/dL (NEG) 60 - 125 mg/dL 11-29-2019 PENDING LOCATION [Mass/Vol] 21:30-0400 [facility] (50293) Hematocrit (Bld) 42 % (NEG) 36.1 - 50.3 % 11-29-2019 P ENDING LOCATION [Volume 21:30-0400 [facility] (71680) fraction] Hemoglobin (Bld) 13.2 g/dL (NEG) 12.1 - 17.2 g/dL 11-29-2019 PENDING LOCATION [Mass/Vol] 21:30-0400 [facility] (68581) INR Coag 1.2 (NEG) 11-29-2019 PENDING LOCATI ON (Platelet poor 21:30-0400 [facility] (30184) plasma or blood) [Relative time] Lactate 1.45 mmol/L (NEG) 0.5 - 2.2 mmol/L 11-29-2019 [facility] LOCATION [Moles/Vol] 21:30-0400 [facility] (94926) Lymphocytes 0.5 10*3/uL (L) 0.9 - 2.9 11-29-2019 PENDING LOCATION (Bld) [#/Vol] 10*3/uL 21:30-0400 [facility] (17887) Lymphocytes/100 4 % (L) 20 - 40 % 11-29-2019 [facility] WBC (Bld) 21:30-0400 [facility] (07436) Lymphocytes/100 5 % (no code) 20 - 40 % 11-29-2019 PENDIN G LOCATION WBC (Bld) 21:30-0400 [facility] (71474) Magnesium 1.9 mg/dL (NEG) 1.7 - 2.2 mg/dL 11-29-2019 PENDIN G LOCATION [Mass/Vol] 21:30-0400 [facility] (21578) MCH (RBC) 28 pg (NEG) 27 - 31 pg 11-29-2019 PENDING LOC ATION [Entitic mass] 21:30-0400 [facility] (96220) MCHC (RBC) 32 g/dL (NEG) 32 - 36 g/dL 11-29-2019 PENDING LOCATION [Mass/Vol] 21:30-0400 [facility] (93814) MCV (RBC) 89 (NEG) 11-29-2019 PENDING LOCATI ON [Entitic vol] 21:30-0400 [facility] (59910) Monocytes (Bld) 0.9 10*3/uL (NEG) 0.3 - 0.9 11-29-2019 PEND ING LOCATION [#/Vol] 10*3/uL 21:30-0400 [facility] (33502) Monocytes/100 7 % (NEG) 2 - 8 % 11-29-2019 PENDING LOCATION WBC (Bld) 21:30-0400 [facility] (71621) Monocytes/100 4 % (no code) 2 - 8 % 11-29-2019 PENDING LOCATION WBC (Bld) 21:30-0400 [facility] (94983) Myoglobin 75.3 ng/mL (NEG) 11-29-2019 PENDING LOCATI ON [Mass/Vol] 21:30-0400 [facility] ([id number]) Natriuretic 419.8 pg/mL (H) 0 - 100 pg/mL 11-29-2019 PEND ING LOCATION peptide B (Bld) 21:30-0400 [facility] ([id number]) [Mass/Vol] Neutrophils 11.8 10*3/uL (H) 1.7 - 7 10*3/uL 11-29-2019 P ENDING LOCATION (Bld) [#/Vol] 21:30-0400 [facility] (95935) Neutrophils/100 88 % (H) 40 - 60 % 11-29-2019 PENDIN G LOCATION WBC (Bld) 21:30-0400 [facility] ([id number]) Platelet mean 10.4 (NEG) 06-14-2020 PENDING LOCA TION volume (Bld) 21:30-0400 [facility] ([id number]) [Entitic vol] Platelets (Bld) 210 10*3/uL (NEG) 150 - 450 11-29-2019 PEND ING LOCATION [#/Vol] 10*3/uL 21:30-0400 [facility] ([id number]) Potassium 3.7 mmol/L (NEG) 3.7 - 5.2 mmol/L 11-29-2019 PEND ING LOCATION [Moles/Vol] 21:30-0400 [facility] (17706) Protein 6.5 g/dL (NEG) 6.4 - 8.3 g/dL 11-29-2019 PENDING LOCATION [Mass/Vol] 21:30-0400 [facility] (90467) PT Coag (PPP) 15.9 s (H) 9.4 - 12.5 s 11-29-2019 PENDI NG LOCATION [Time] 21:30-0400 [facility] (47401) RBC (Bld) 4.69 10*6/uL (NEG) 4.2 - 6.1 11-29-2019 PENDING L OCATION [#/Vol] 10*6/uL 21:30-0400 [facility] (83203) RBC morphology NORMAL (no code) 11-29-2019 PENDING LOC ATION finding Nom 21:30-0400 [facility] ([id number]) (Bld) Segmented 89 % (no code) 35 - 80 % 11-29-2019 PENDING LOCA TION neutrophils/100 21:30-0400 [facility] (88766) WBC (Bld) Sodium 141 mmol/L (NEG) 135 - 145 mmol/L 11-29-2019 PEND ING LOCATION [Moles/Vol] 21:30-0400 [facility] (33843) Troponin ng/mL (NEG) 0 - 0.4 ng/mL 11-29-2019 PENDING LOCATION I.cardiac 21:30-0400 [facility] ([id number]) [Mass/Vol] Urea nitrogen 22 mg/dL (H) 7 - 20 mg/dL 11-29-2019 PENDI NG LOCATION [Mass/Vol] 21:30-0400 [facility] (83210) Urea 26 mg/mg (no code) 6 - 22 mg/mg 11-29-2019 PENDING L OCATION nitrogen/Creatin 21:30-0400 [facility] (40477) ine [Mass ratio] WBC (Bld) 13.3 10*3/uL (H) 3.5 - 10.5 11-29-2019 PENDING LOCATION [#/Vol] 10*3/uL 21:300400 [facility] (75817) not yet categorized on 2019-11-17 no information NAME: MJ KRAMER (no code) PENDING LOCAT ION ~MED REC#: [facility] ([id number]) [id number] ~ ~PHYSICIAN: ESTRELLA GRECO MD ~Subjective ~Date [...] carotid artery stenosis per carotid duplex done 2016. We'll reevaluate carotid ~duplex today. ~ ~Clinical [...] g/dL 11-16-2019 PENDING LOCATION [Mass/Vol] 03:40-0400 [facility] ([id number]) ALP [Catalytic 73 U/L (NEG) 44 - 147 U/L 11-16-2019 PEND ING LOCATION activity/Vol] 03:40-0400 [facility] ([id number]) ALT [Catalytic U/L (NEG) 4 - 40 U/L 11-16-2019 PENDIN G LOCATION activity/Vol] 03:40-0400 [facility] ([id number]) Anion gap 10 mmol/L (NEG) 3 - 11 mmol/L 11-16-2019 PENDING LOCATION [Moles/Vol] 03:40-0400 [facility] ([id number]) Anion gap 6 mmol/L (NEG) 3 - 11 mmol/L 11-16-2019 PENDING LOCATION [Moles/Vol] 22:45-0400 [facility] (32806) aPTT Coag (PPP) 29 s (NEG) 25 - 35 s 11-16-2019 PENDIN G LOCATION [Time] 03:40-0400 [facility] ([id number]) AST [Catalytic 19 U/L (NEG) 10 - 34 U/L 11-16-2019 PENDI NG LOCATION activity/Vol] 03:40-0400 [facility] ([id number]) Basophils (Bld) 0.0 10*3/uL (NEG) 0 - 0.3 10*3/uL 11-16-2019 PENDING LOCATION [#/Vol] 03:40-0400 [facility] ([id number]) Basophils/100 0 % (NEG) 0.5 - 1 % 11-16-2019 PENDING LOCATION WBC (Bld) 03:40-0400 [facility] (58135) Bilirubin 0.4 mg/dL (NEG) 0.1 - 1.2 mg/dL 11-16-2019 PENDIN G LOCATION [Mass/Vol] 03:40-0400 [facility] ([id number]) Calcium 9.1 mg/dL (NEG) 8.5 - 10.2 mg/dL 11-16-2019 [facility] LOCATION [Mass/Vol] 03:40-0400 [facility] ([id number]) Calcium 8.2 mg/dL (L) 8.5 - 10.2 mg/dL 11-16-2019 [facility] LOCATION [Mass/Vol] 22:45-0400 [facility] ([id number]) Chloride 106 mmol/L (NEG) 95 - 106 mmol/L 11-16-2019 [facility] LOCATION [Moles/Vol] 03:40-0400 [facility] (33271) Chloride 112 mmol/L (H) 95 - 106 mmol/L 11-16-2019 [facility] LOCATION [Moles/Vol] 22:45-0400 [facility] (81217) Cholesterol 120 mg/dL (no code) 180 - 200 mg/dL 11-16-2019 [facility] LOCATION [Mass/Vol] 22:45-0400 [facility] (46147) Cholesterol in 51 mg/dL (NEG) 11-16-2019 PENDING LOC ATION HDL [Mass/Vol] 22:45-0400 [facility] ([id number]) Cholesterol in 57 mg/dL (NEG) 0 - 100 mg/dL 11-16-[address] [facility] LOCATION LDL [Mass/Vol] 22:45-0400 [facility] (37946) Cholesterol in 13 mg/dL (NEG) 11-16-2019 PENDING LOC ATION VLDL [Mass/Vol] 22:45-0400 [facility] ([id number]) CO2 [Moles/Vol] 26 mmol/L (NEG) 23 - 29 mmol/L 11-16-2019 P ENDING LOCATION 03:40-0400 [facility] (33407) CO2 [Moles/Vol] 27 mmol/L (NEG) 23 - 29 mmol/L 11-16-2019 P ENDING LOCATION 22:45-0400 [facility] (75447) Creatinine 0.78 mg/dL (NEG) 11-16-2019 PENDING LOCATI ON [Mass/Vol] 03:40-0400 [facility] (66871) Creatinine 0.66 mg/dL (NEG) 11-16-2019 PENDING LOCATI ON [Mass/Vol] 22:45-0400 [facility] (71011) Creatinine and > (no code) 11-16-2019 PENDING LOC ATION Glomerular 03:40-0400 [facility] (24611) filtration rate.predicted panel - Serum, Plasma or Blood Creatinine and > (no code) 11-16-2019 PENDING LOC ATION Glomerular 22:45-0400 [facility] ([id number]) filtration rate.predicted panel - Serum, Plasma or Blood Eosinophils 0.4 10*3/uL (H) 0.05 - 0.5 11-16-2019 PENDING LOCATION (Bld) [#/Vol] 10*3/uL 03:40-0400 [facility] ([id number]) Eosinophils/100 5 % (NEG) 1 - 4 % 11-16-2019 PENDIN G LOCATION WBC (Bld) 03:40-0400 [facility] (86502) Erythrocyte 15.9 % (H) 11.6 - 14.6 % 11-16-2019 [facility] G LOCATION distribution 03:40-0400 [facility] (18543) width (RBC) [Ratio] Erythrocyte 16.0 % (H) 11.6 - 14.6 % 11-16-2019 [facility] G LOCATION distribution 22:45-0400 [facility] (72527) width (RBC) [Ratio] Glucose 97 mg/dL (NEG) 60 - 125 mg/dL 11-16-2019 PENDING LOCATION [Mass/Vol] 03:40-0400 [facility] ([id number]) Glucose 99 mg/dL (NEG) 60 - 125 mg/dL 11-16-2019 PENDING LOCATION [Mass/Vol] 22:45-0400 [facility] ([id number]) Hematocrit (Bld) 46 % (NEG) 36.1 - 50.3 % 11-16-2019 P ENDING LOCATION [Volume 03:40-0400 [facility] (83870) fraction] Hematocrit (Bld) 38 % (NEG) 36.1 - 50.3 % 11-16-2019 P ENDING LOCATION [Volume 22:45-0400 [facility] (09939) fraction] Hemoglobin (Bld) 14.2 g/dL (NEG) 12.1 - 17.2 g/dL 11-16-2019 PENDING LOCATION [Mass/Vol] 03:40-0400 [facility] (60194) Hemoglobin (Bld) 11.6 g/dL (NEG) 12.1 - 17.2 g/dL 11-16-2019 PENDING LOCATION [Mass/Vol] 22:45-0400 [facility] ([id number]) INR Coag 1.0 (NEG) 11-16-2019 PENDING LOCATI ON (Platelet poor 03:40-0400 [facility] (48778) plasma or blood) [Relative time] Lymphocytes 2.2 10*3/uL (NEG) 0.9 - 2.9 11-16-2019 PENDING LOCATION (Bld) [#/Vol] 10*3/uL 03:40-0400 [facility] ([id number]) Lymphocytes/100 32 % (NEG) 20 - 40 % 11-16-2019 PENDIN G LOCATION WBC (Bld) 03:40-0400 [facility] (70065) Magnesium 2.1 mg/dL (NEG) 1.7 - 2.2 mg/dL 11-16-2019 PENDIN G LOCATION [Mass/Vol] 03:40-0400 [facility] (85310) Magnesium 1.7 mg/dL (NEG) 1.7 - 2.2 mg/dL 11-16-2019 PENDIN G LOCATION [Mass/Vol] 22:45-0400 [facility] ([id number]) MCH (RBC) 28 pg (NEG) 27 - 31 pg 11-16-2019 PENDING LOC ATION [Entitic mass] 03:40-0400 [facility] (10971) MCH (RBC) 27 pg (NEG) 27 - 31 pg 11-16-2019 PENDING LOC ATION [Entitic mass] 22:45-0400 [facility] (68686) MCHC (RBC) 31 g/dL (L) 32 - 36 g/dL 11-16-2019 PENDING LOCATION [Mass/Vol] 03:40-0400 [facility] ([id number]) MCHC (RBC) 30 g/dL (L) 32 - 36 g/dL 11-16-2019 PENDING LOCATION [Mass/Vol] 22:45-0400 [facility] ([id number]) MCV (RBC) 89 (NEG) 11-16-2019 PENDING LOCATI ON [Entitic vol] 03:40-0400 [facility] (20603) MCV (RBC) 90 (NEG) 11-16-2019 PENDING LOCATI ON [Entitic vol] 22:45-0400 [facility] (20514) Monocytes (Bld) 0.7 10*3/uL (NEG) 0.3 - 0.9 11-16-2019 PEND ING LOCATION [#/Vol] 10*3/uL 03:40-0400 [facility] ([id number]) Monocytes/100 10 % (NEG) 2 - 8 % 11-16-2019 PENDING LOCATION WBC (Bld) 03:40-0400 [facility] ([id number]) MRSA isol Org Negative (no code) 11-16-2019 PENDING LOCA TION specific cx Ql 06:13-0400 [facility] ([id number]) (Unsp spec) Myoglobin 58.8 ng/mL (NEG) 11-16-2019 PENDING LOCATI ON [Mass/Vol] 03:40-0400 [facility] ([id number]) Neutrophils 3.6 10*3/uL (NEG) 1.7 - 7 10*3/uL 11-16-2019 [facility] LOCATION (Bld) [#/Vol] 03:40-0400 [facility] ([id number]) Neutrophils/100 52 % (NEG) 40 - 60 % 11-16-2019 PENDIN G LOCATION WBC (Bld) 03:40-0400 [facility] ([id number]) Phosphate 3.0 mg/dL (NEG) 2.4 - 4.1 mg/dL 11-16-2019 PENDIN G LOCATION [Mass/Vol] 22:45-0400 [facility] ([id number]) Platelet mean 10.5 (H) 11-16-2019 PENDING LOCA TION volume (Bld) 03:40-0400 [facility] ([id number]) [Entitic vol] Platelet mean 10.4 (NEG) 11-16-2019 PENDING LOCA TION volume (Bld) 22:45-0400 [facility] ([id number]) [Entitic vol] Platelets (Bld) 270 10*3/uL (NEG) 150 - 450 11-16-2019 PEND ING LOCATION [#/Vol] 10*3/uL 03:40-0400 [facility] ([id number]) Platelets (Bld) 213 10*3/uL (NEG) 150 - 450 11-16-2019 PEND ING LOCATION [#/Vol] 10*3/uL 22:45-0400 [facility] ([id number]) Potassium 4.0 mmol/L (NEG) 3.7 - 5.2 mmol/L 11-16-2019 PEND ING LOCATION [Moles/Vol] 03:40-0400 [facility] ([id number]) Potassium 3.6 mmol/L (NEG) 3.7 - 5.2 mmol/L 11-16-2019 PEND ING LOCATION [Moles/Vol] 22:45-0400 [facility] ([id number]) Protein 7.0 g/dL (NEG) 6.4 - 8.3 g/dL 11-16-2019 PENDING LOCATION [Mass/Vol] 03:40-0400 [facility] ([id number]) PT Coag (PPP) 13.8 s (NEG) 9.4 - 12.5 s 11-16-2019 [facility] LOCATION [Time] 03:40-0400 [facility] ([id number]) RBC (Bld) 5.12 10*6/uL (NEG) 4.2 - 6.1 11-16-2019 PENDING L OCATION [#/Vol] 10*6/uL 03:40-0400 [facility] ([id number]) RBC (Bld) 4.24 10*6/uL (L) 4.2 - 6.1 11-16-2019 PENDING L OCATION [#/Vol] 10*6/uL 22:45-0400 [facility] ([id number]) Sodium 142 mmol/L (NEG) 135 - 145 mmol/L 11-16-2019 [facility]END [facility] LOCATION [Moles/Vol] 03:40-0400 [facility] ([id number]) Sodium 145 mmol/L (NEG) 135 - 145 mmol/L 11-16-2019 [facility]END [facility] LOC[facility] [Moles/Vol] 22:45-0400 [facility] ([id number]) Triglyceride 64 mg/dL (NEG) 0 - 150 mg/dL 11-16-2019 [facility] LOCATION [Mass/Vol] 22:45-0400 [facility] (50930) Troponin ng/mL (NEG) 0 - 0.4 ng/mL 11-16-2019 PENDING LOCATION I.cardiac 03:40-0400 [facility] ([id number]) [Mass/Vol] Urea nitrogen 22 mg/dL (H) 7 - 20 mg/dL 11-16-2019 [facility] LOCATION [Mass/Vol] 03:40-0400 [facility] ([id number]) Urea nitrogen 12 mg/dL (NEG) 7 - 20 mg/dL 11-16-2019 [facility] LOC[facility] [Mass/Vol] 22:45-0400 [facility] ([id number]) Urea 28 mg/mg (no code) 6 - 22 mg/mg 11-16-2019 [facility] nitrogen/Creatin 03:40-0400 [facility] ([id number]) ine [Mass ratio] Urea 18 mg/mg (no code) 6 - 22 mg/mg 11-16-2019 [facility]END[facility] nitrogen/Creatin 22:45-0400 [facility] (01501) ine [Mass ratio] WBC (Bld) 6.9 10*3/uL (NEG) 3.5 - 10.5 11-16-2019 [facility] [#/Vol] 10*3/uL 03:40-0400 [facility] ([id number]) WBC (Bld) 5.9 10*3/uL (NEG) 3.5 - 10.5 11-16-2019 [facility]END[facility] [#/Vol] 10*3/uL 22:45-0400 [facility] ([id number]) Vital Signs No Information Interventions No Information Plan of Treatment No Information Goals No Information Social History No Information Functional Status No Information Mental Status No Information Encounters Encounter Normalized Encounter Encounter Diagnosis Care Provi jose Organization Date Type 11-29-2019 Emergency department no information [facility] patient visit (no phone) [facility] (no phone) 11-16-2019 Emergency department no information OSMEL MEYER MD [facility] patient visit (no phone) [facility] (no phone) 07-04-2019 Emergency department no [...] [facility] - management of phone) [facility] 11-17-2019 inpatient (no phone) 07-04-2019 Evaluation and no information NAPOLEON Bell [facility] - management of (no phone) [facility] 07-06-2019 inpatient (no phone) 01-20-2019 Evaluation and no information no name no organ ization name - management of 01-21-2019 inpatient 06-20-2016 Evaluation and no information no name no organ ization name - management of 06-21-2016 inpatient 11-26-2019 Patient encounter no information SHERINE HARTLEY DO (no [facility] procedure phone) [facility] (no phone) 11-16-2019 Patient encounter no information KRISS MORROW MD (no [facility] - procedure phone) [facility] 11-17-2019 (no phone) 07-04-2019 Patient encounter no information no name no or ganization name - procedure 07-06-2019 01-20-2019 Patient encounter no information no name no or ganization name - procedure 01-21-2019 12-13-2018 Patient encounter no information no name no or ganization name procedure 11-26-2018 Patient encounter no information SHREE DELVALLE MD (n o [facility] procedure phone) [facility] (no phone) 10-17-2018 Patient encounter no [...] This clinical document has been generated using [employer] software that has been certified by the Office of the National Coordinator for Health Information Technology (ONC 15.99.04.3023.Diam.[id number]) and the National Committee for Regulatory Attorney (NCQA, as an eMeasure certified technology). FOR [...] BASED ON T HE PRIMARY CLINICAL RECORDS. [facility], [facility]. provides no warranty or guara ntee of the accuracy or completeness of information in this document.The followi ng information is based on time limited clinical information
--- OUTSIDE RECORDS SUMMARY | 2019-11-30 05:06 | XMS REPORT | Continuity of Care Document ---
Author Organization Unknown Address Unknown Phone Unavailable Allergies Active Description Code Type Severity Reaction Onset Reported/Identified Relationship to Patient Clinical Status Yes Sulfa (Sulfonamide Antibiotics) R31497 0491 Drug Allergy Unknown N/A 020 Yes Sulfa (Sulfonamide Antibiotics) T52402 0491 Drug Allergy Unknown hives 020 Medications [...] 733.90 07/06/2014 ADAM JON Ot 174.9 07/06/2014 DAAM JON Ot V76.11 07/28/2015 Ot V76.12 07/28/2015 [...] MAMMOGRAM FOR MALIGNANT NE 05/23/2016 CARLA HIRSCH MIDWIFE PRACTITIONER Ot R25.1 TREMOR, UNSPECIFIED 05/24/2016 Ot V76.12 [...] MAMMOGRAM FOR MALIGNANT NE 05/24/2016 SNCARLA OH MIDWIFE PRACTITIONER Ot R25.1 TREMOR, UNSPECIFIED 06/14/2016 SNOOKHERONI R MIDWIFE PRACTITIONER Ot R25.1 TREMOR, UNSPECIFIED 06/20/2016 SNOOK, CARLA R MIDWIFE PRACTITIONER Ot R25.1 TREMOR, UNSPECIFIED 06/21/2016 TAPIA DO [...] SNGL 12/14/2018 GILBERTO ESPOSITO DO Ot Z79.82 PRISON (CURRENT) USE OF ASPIRIN 12/14/2018 GILBERTO ESPOSITO [...] 12/16/2018 VAIBHAV BLAKE GILBERTO Mario Ot Z79.82 PRISON (CURRENT) USE OF ASPIRIN 12/16/2018 VAIBHAV GILBERTO Mario Ot Z86.73 PRSNL HX OF TIA (TIA), AND CEREB INFRC W 12/16/2018 VAIBHAV BLAKE GILBERTO Mario Ot Z87.891 PERSONAL HISTORY OF NICOTINE [...] 01/21/2019 WILL CHILDS MD Ot Z79. 82 PRISON (CURRENT) USE OF ASPIRIN 01/21/2019 WILL CHILDS [...] Ot I25. 10 ATHSCL HEART DISEASE OF [place] CORONARY 01/21/2019 WILL CHILDS MD Ot I48. [...] 01/21/2019 WILL CHILDS MD Ot Z79. 82 PRISON (CURRENT) USE OF ASPIRIN 01/21/2019 WILL CHILDS [...] MD Ot I25.10 ATHSCL HEART DISEASE OF [place] CORONARY 07/06/2019 NAPOLEON GALLEGOS MD Ot I25.2 OLD MYOCARDIAL INFARCTION 07/06/2019 NAPOELON GALLEGOS MD Ot I48.0 PAROXYSMAL ATRIAL FIBRILLATION [...] 07/06/2019 NAPOLEON GALLEGOS MD Ot Z79.01 DATA TYPIST (CURRENT) USE OF ANTICOAGULANT 07/06/2019 NAPOLEON GALLEGOS [...] Ot I25. 10 ATHSCL HEART DISEASE OF [place] CORONARY 11/17/2019 KRISS MORROW MD, Ot I25. [...] 11/17/2019 KRISS MORROW MD Ot Z79. 01 DATA TYPIST (CURRENT) USE OF ANTICOAGULANT 11/17/2019 KRISS MORROW [...] On G0008 FLU ADMINISTRATION (MEDICARE ONLY) 04/06/2013 [id number] ME ASURE OF CARDIAC SAMPL PRESSURE, L H 01/21/2019 [id number] FL UOROSCOPY OF MULT COR ART USING L OSM 01/21/2019 [id number] FL UOROSCOPY OF LEFT HEART USING LOW OSMO 01/21/2019 [id number] FL UOROSCOPY OF ABDOMINAL AORTA USING LOW 01/21/2019 [id number] ME ASURE OF CARDIAC SAMPL PRESSURE, L H 07/05/2019 [id number] FL UOROSCOPY OF MULT COR ART USING L OSM 07/05/2019 [id number] FL UOROSCOPY OF LEFT HEART USING LOW OSMO 07/05/2019 [id number] FL UOROSCOPY OF THORACIC AORTA USING LOW [...] culture - 06/20/16 11:45 Bacterial urine culture [id number] NRG COLONY COUNT <10,000 NRG FTX;REPORTABLE SENSITIVITY [...] - 11/17/19 02:45 Magnesium 1.7 mg/dL 1.6-2.4 Complete blood count (CBC) with automate d white blood cell (WBC) differential - 11/30/19 01:30 Blood leukocytes automated count (number/volume) 13.3 10*3/uL 4.3-11.0 Blood erythrocytes automated count (number/volume) 4.69 10*6/uL 4.35-5.85 Venous blood hemoglobin measurement (mass/volume) 13.2 g/dL 11.5-16.0 Blood hematocrit (volume fraction) 42 % 35-52 Automated erythrocyte mean corpuscular volume 89 [ foz_us] 80-99 Automated erythrocyte mean corpuscular h emoglobin (mass per erythrocyte) 28 pg 25-34 Automated erythrocyte mean corpuscular h emoglobin concentration measurement (mass/volume) 32 g/dL 32-36 Automated erythrocyte distribution width ratio 16. 1 % 10.0- 14.5 Automated blood platelet count (count/volume) 210 10*3/uL 130-400 Automated blood platelet mean volume measurement 10.4 [foz_us] 7.4-10.4 Automated blood neutrophils/100 leukocytes 88 % 42-75 Automated blood lymphocytes/100 leukocytes 4 % 12-44 Blood monocytes/100 leukocytes 7 % 0-12 Automated blood eosinophils/100 leukocytes 1 % 0-10 Automated blood basophils/100 leukocytes 0 % 0-10 Blood neutrophils automated count (number/volume) 11.8 10*3 1.8-7.8 Blood lymphocytes automated count (number/volume) 0.5 10*3 1.0-4.0 Blood monocytes automated count (number/volume) 0. 9 10*3 0.0-1.0 Automated eosinophil count 0.1 10*3/uL 0 .0-0.3 Automated blood basophil count (count/volume) 0.0 10*3/uL 0.0-0.1 Blood lactic acid measurement (moles/vol ume) - 11/30/19 01:30 Blood lactic acid measurement (moles/volume) 1.45 mmol/L 0.50-2.00 PROCALCITONIN (PCT) - 11/30/19 01:30 PROCALCITONIN (PCT) 0.35 ng/mL <0.10 Comprehensive metabolic panel - 11/30/19 01:30 Serum or plasma sodium measurement (moles/volume) 141 mmol/L 135-145 Serum or plasma potassium measurement (moles/volume) 3.7 mmol/L 3.6-5.0 Serum or plasma chloride measurement (moles/volume) 106 mmol/L 98-107 Carbon dioxide 24 mmol/L 21-32 Serum or plasma anion gap determination (moles/volume) 11 mmol/L 5-14 Serum or plasma urea nitrogen measurement (mass/volume ) 22 mg/dL 7-18 Serum or plasma creatinine measurement (mass/volume) 0.85 mg/dL 0.60-1.30 Serum or plasma urea nitrogen/creatinine mass ratio 26 NRG Serum or plasma creatinine measurement w ith calculation of estimated glomerular filtration rate > NRG Serum or plasma glucose measurement (mass/volume) 105 mg/dL 70-105 Serum or plasma calcium measurement (mass/volume) 8.6 mg/dL 8.5-10.1 Serum or plasma total bilirubin measurement (mass/volu me) 0.6 mg/dL 0.1-1.0 Serum or plasma alkaline phosphatase kem surement (enzymatic activity/volume) 72 U/L 40-136 Serum or plasma aspartate aminotransfera se measurement (enzymatic activity/volume) 13 U/L 5-34 Serum or plasma alanine aminotransferase measurement (enzymatic activity/volume) 8 U/L 0-55 Serum or plasma protein measurement (mass/volume) 6.5 g/dL 6.4-8.2 Serum or plasma albumin measurement (mass/volume) 3.7 g/dL 3.2-4.5 CALCIUM CORRECTED 8.8 mg/dL 8.5-10.1 Magnesium - 11/30/19 01:30 Magnesium 1.9 mg/dL 1.6-2.4 PT panel in platelet poor plasma by coag ulation assay - 11/30/19 01:30 Prothrombin time (PT) in platelet poor plasma by coagu lation assay 15.9 s 12.2-14.7 INR in platelet poor plasma or blood by coagulation as say 1.2 0.8-1.4 Activated partial thromboplastin time (a PTT) in platelet poor plasma bycoagulation assay - 11/30/19 01:30 Activated partial thromboplastin time (a PTT) in platelet poor plasma bycoagulation assay 32 s 24-35 Myoglobin, serum - 11/30/19 01:30 Myoglobin, serum 75.3 ng/mL 10.0-92.0 Serum or plasma lithium measurement (mol es/volume) - 11/30/19 01:30 BNP PT 419.8 pg/mL <100.0 Serum or plasma troponin i.cardiac measu rement (mass/volume) - 11/30/19 01:30 Serum or plasma troponin i.cardiac measurement (mass/v olume) < ng/mL <0.028 Manual absolute plasma cell count - 11/15 11/03 01:30 Blood monocytes/100 leukocytes 4 % NRG Manual blood segmented neutrophils/100 leukocytes 89 % NRG Blood band neutrophils/100 leukocytes 2 % NRG Manual blood lymphocytes/100 leukocytes 5 % NRG Blood erythrocyte morphology finding identification NORMAL NRG Serum or plasma C reactive protein measu rement (mass/volume) - 11/30/19 01:30 Serum or plasma C reactive protein measurement (mass/v olume) 4.28 mg/dL 0.00-0.50 Fibrin D-dimer FEU measurement in platel et poor plasma (mass/volume) - 11/30/19 01:30 Fibrin D-dimer FEU measurement in platelet poor plasma (mass/volume) 0.37 ug/mL 0.00-0.49 Influenza virus A and B antigen detectio n - 11/30/19 01:38 FLU RESULT NEGATIVE FOR INFLUENZA A AND B ANTIGENS BY IA NRG Complete urinalysis with reflex to cultu re - 11/30/19 04:38 Urine color determination YELLOW NRG Urine clarity determination SL CLOUDY N RG Urine pH measurement by test strip 6.0 5-9 Specific gravity of urine by test strip 1.025 1.016-1.022 Urine protein assay by test strip, semi-quantitative 1+ NEGATIVE Urine glucose detection by automated test strip NE GATIVE NEGATIVE Erythrocytes detection in urine sediment by light micr oscopy 2+ NEGATIVE Urine ketones detection by automated test strip NE GATIVE NEGATIVE Urine nitrite detection by test strip POSITIVE NEGATIVE Urine total bilirubin detection by test strip NEGA TIVE NEGATIVE Urine urobilinogen measurement by automated test strip (mass/volume) 0.2 mg/dL < = 1.0 Urine leukocyte esterase detection by dipstick 2+ NEGATIVE Automated urine sediment erythrocyte cou nt by microscopy (number/high power field) [HPF] NRG Automated urine sediment leukocyte count by [...] detection in urine sediment by light microscopy MODERATE NRG Complete urinalysis with reflex to culture CULTURE PENDING NRG Encounters ACCT No. Visit Date/Time Discharge Status Pt. Type Provider Facility Loc./Unit Complaint [id number] 06/08/2014 09:49:53 ACT Document Registration [id number] 04/06/2013 16:39:00 04/06/2013 23:59: 59 CLS Outpatient TARA FOSTER DO [id number] 11/26/2019 13:38:00 23:59:59 CLS Outpatient SHERINE HARTLEY DO [facility] RAD BACK PAIN [id number] 11/16/2019 09:24:00 09:30:00 DIS Inpatient KRISS MORROW MD [facility] ICU AFIB W RVR [id number] 07/04/2019 12:35:00 13:25:00 DIS Inpatient NAPOLEON GALLEGOS MD [facility] 4TH CHEST PAIN,ELEV ATED TROPONIN,HYPERTENSION,HYPOXIA [id number] 01/20/2019 11:42:00 16:40:00 DIS Inpatient WILL CHILDS MD [facility] 4TH AFIB W RVR,CP [id number] 12/13/2018 22:30:00 01:59:00 DIS Emergency VAIBHAVGILBERTO Benites DO [facility] ER RT ARM INJURY [id number] 11/26/2018 08:03:00 23:59:59 CLS Outpatient SHREE DELVALLE MD [facility] RAD ABN MAMMO [id number] 10/17/2018 11:53:00 23:59:59 CLS Outpatient OSMEL LINDA DC [facility] RAD ACUTE LOW BACK PAIN [id number] 06/19/2018 14:33:00 23:59:59 CLS Outpatient SHREE DELVALLE MD [facility] RAD SCREENING [id number] 04/03/2017 10:15:00 23:59:59 CLS Preadmit OTHER, UNLISTED [facility] RAD SCREENING [id number] 06/20/2016 14:25:00 14:37:00 DIS Inpatient WILLIE BLAKEFLORENCIA [facility] ICU CVA UTI [id number] 05/22/2016 13:39:00 016 23:59:59 CLS Outpatient SNOOKCARLA R MIDWIFE PRACTITIONER [facility] RAD TREMORS [id number] 07/28/2015 10:50:00 016 23:59:59 CLS Outpatient ROULA MATAMOROS MD, [facility] RAD SCREENING [id number] 06/08/2014 09:49:00 014 23:59:59 CLS Outpatient ADAM JON [facility] RAD SCREENING [id number] 10/02/2013 12:41:00 014 23:59:59 CLS Outpatient [id number] 07/17/2013 11:18:00 014 23:59:59 CLS Outpatient NAPOLEON GALLEGOS MD [facility] RAD SCREENING,KYPHO SEOLOSIS [id number] 05/25/2013 14:26:00 013 23:59:59 CLS Outpatient NAPOLEON GALLEGOS MD [facility] RAD SCREENING [id number] 11/30/2019 01:49:00 Document Registration [id number] 06/08/2014 09:48:00 Document Registration [id number] 07/09/2012 07:55:00 Document Registration [id number] 05/14/2012 15:02:00 Document Registration [id number] 01/10/2012 10:34:00 Document Registration [id number] 01/09/2012 14:20:00 Document Registration [id number] 09/20/2011 10:45:00 Document Registration [id number] 05/07/2011 08:48:00 Document Registration [id number] 05/05/2010 09:32:00 Document Registration [id number] 05/04/2009 13:33:00 Document Registration [id number] 01/12/2009 13:36:00 Document Registration [id number] 12/20/2008 09:09:00 Document Registration
--- NOTE | 2019-11-30 06:08 | NUR ---
MJ KRAMER admitted to room 425-1, with an admitting diagnosis of CHEST PAIN, HYPOXIA AND SEPSIS on 11/30/19 from ED via , accompanied by ED STAFF. MJ KRAMER introduced to surroundings, call light, bed controls, phone, TV, temperature control, lights, meal times, smoking policy, visitor policy, side rail policy, bathrooms and showers. Patient Rights given to patient in the handbook. MJ KRAMER verbalizes understanding that [facility] is not responsible for the loss or damage to any personal effects or valuables that are kept in the patients posession during their hospitalization. MJ KRAMER verbalizes understanding of Interdisciplinary Patient Education. Patient and/or family were informed about the Rapid Response Team and its purpose.
--- NOTE | 2019-11-30 06:55 | Diagnostic Imaging Report ---
INDICATION: Chest pain, chills COMPARISON: 11/16/2019 TECHNIQUE: Single radiograph of the chest dated 11/30/2019. FINDINGS: The cardiac silhouette is enlarged, similar to the prior exam. Mild central pulmonary vascular congestion. The lungs, however, are clear of focal pulmonary opacity. No pleural effusion. No pneumothorax. Left shoulder arthroplasty is again noted. Prior vertebroplasty changes. Chronic proximal right humeral fracturing. No new acute osseous abnormality. IMPRESSION: Stable cardiomegaly with borderline central pulmonary vascular congestion without interstitial edema or pleural effusion. Chronic proximal right humeral fracturing. Additional stable findings as above. Dictated by: Dictated on workstation # [id number]
--- NOTE | 2019-11-30 06:57 | NUR ---
PTD VANCOMYCIN LABS: SC 0.85 PLAN: VANCOMYCIN 1,000MG IV DAILY @ 0700, CHECKING TROUGH PRIOR TO 3RD DOSE, MAY NEED TO ADJUST DOSE DOWN. MONITOR SCR/RENAL FXN CLOSELY AND ADJUST IF NEEDED
[2019-11-30] MEDS ORDERED: ACETAMINOPHEN 500 MG TAB (TYLENOL) PO PRN (07:00)
[2019-11-30] MEDS ORDERED: ONDANSETRON 4 MG/2 ML (SDV) Z0FRAN IV PRN (07:00)
[2019-11-30] MEDS ORDERED: CATHETER FLUSH 10 ML SYR IV PRN (07:00)
[2019-11-30] MEDS: NS IV 1000 ML 1,000 ML IV SCH ×2 (07:06→18:28)
[2019-11-30] MEDS: VANCOMYCIN 1 GM/NS 250 ML IVPB IV SCH ×2 (08:11)
[2019-11-30] MEDS: APIXABAN 2.5 MG (ELIQUIS) TABLET PO SCH ×2 (08:14→21:41)
[2019-11-30] MEDS: PIPERACILLIN/TAZO 4.5 GM/NS 100 ML IV SCH ×4 (10:05→18:28)
--- NOTE | 2019-11-30 12:40 | Consultation-Cardiology ---
HPI-Cardiology Cardiology Consultation Date of Consultation 11/30/19 Date of Admission Time Seen by Provider: 11:00 Indication: Chest pain, dyspnea HPI Patient is a 84-year-old female with history of hospitalization earlier this month for A. fib with RVR, nonobstructive coronary artery disease, hypertension, hyperlipidemia. Presented to the ER with complaints of chest pain shortness of breath and chills, had a fever of 102.2. Denies any active chest pain at this time. Denies any dizziness or lightheadedness. COVID testing currently pending Home Medications & Allergies Allergies: Coded Allergies: Sulfa (Sulfonamide Antibiotics) (Verified Allergy, Unknown, hives, 11/16/19) Home Medication List Reviewed: Yes [id number]-[id number] Hx Patient Social History Employed/Student: retired Alcohol Use: Rarely Uses Recreational Drug Use: No Smoking Status: Former Smoker Type Used: Cigarettes Recent Foreign Travel: No Recent Infectious Disease Expo: No Recent Hopitalizations: No Immunizations Up To Date Tetanus Booster (TDap): Less than 5yrs Date of Pneumonia Vaccine: Feb 20, 2016 Date of Influenza Vaccine: Jun 10, 2019 Past Medical History PAF, HTN Family Medical History Significant Family History: No Pertinent Family Hx Family History: Patient reports no known family medical history. Review of Systems-General Review of Systems Constitutional: see HPI, chills, diaphoresis, fever, malaise, weakness EENTM: no symptoms reported Respiratory: see HPI; No cough, No dyspnea on exertion Cardiovascular: see HPI Gastrointestinal: no symptoms reported Genitourinary: no symptoms reported : No Musculoskeletal: see HPI Skin: see HPI Psychiatric/Neurological: No Symptoms Reported Reviewed Test Results Reviewed Test Results Lab Laboratory Tests 11/30/19 01:30: White Blood Count 13.3H, Red Blood Count 4.69, Hemoglobin 13.2, Hematocrit 42, Mean Corpuscular Volume 89, Mean Corpuscular Hemoglobin 28, Mean Corpuscular Hemoglobin Concent 32, Red Cell Distribution Width 16.1H, Platelet Count 210, Mean Platelet Volume 10.4, Neutrophils (%) (Auto) 88H, Lymphocytes (%) (Auto) 4L , Monocytes (%) (Auto) 7, Eosinophils (%) (Auto) 1, Basophils (%) (Auto) 0, Neutrophils # (Auto) 11.8H, Lymphocytes # (Auto) 0.5L, Monocytes # (Auto) 0.9, Eosinophils # (Auto) 0.1, Basophils # (Auto) 0.0, Neutrophils % (Manual) 89, Lymphocytes % (Manual) 5, Monocytes % (Manual) 4, Band Neutrophils 2, Blood M orphology Comment NORMAL, Prothrombin Time 15.9H, INR Comment 1.2, Activated Partial Thromboplast Time 32, D-Dimer 0.37, Sodium Level 141, Potassium Level 3.7, Chloride Level 106, Carbon Dioxide Level 24, Anion Gap 11, Blood Urea Nitrogen 22H, Creatinine 0.85, Estimat Glomerular Filtration Rate > 60, BUN/Creatinine Ratio 26, Glucose Level 105, Lactic Acid Level 1.45, Calcium Level 8.6, Corrected Calcium 8.8, Magnesium Level 1.9, Total Bilirubin 0.6, Aspartate Amino Transf (AST/SGOT) 13, Alanine Aminotransferase (ALT/SGPT) 8, Alkaline Phosphatase 72, Myoglobin 75.3, Troponin I < 0.028, C-Reactive Protein High Sensitivity 4.28H, B-Type Natriuretic Peptide 419.8H, Total Protein 6.5, Albumin 3.7, Procalcitonin 0.35H 11/30/19 01:38: 11/30/19 04:38: Urine Color YELLOW, Urine Clarity SL CLOUDY, Urine pH 6.0, Urine Specific [place] 1.025H, Urine Protein 1+H, Urine Glucose (UA) NEGATIVE, Urine Ketones NEGATIVE, Urine Nitrite POSITIVEH, Urine Bilirubin NEGATIVE, Urine Urobilinogen 0.2, Urine Leukocyte Esterase 2+H, Urine RBC (Auto) 2+H, Urine RBC 10-25H, Urine WBC 50-100H, Urine Squamous Epithelial Cells 2-5, Urine Crystals NONE, Urine B acteria LARGEH, Urine Casts NONE, Urine Mucus MODERATEH, Urine Culture Indicated CULTURE PENDING Microbiology 11/30/19 Influenza Types A,B Antigen (HIEU) - Final, Complete ECG Impression ECG Initial ECG Rhythm: S.Robinson Physical Exam Physical Exam Vital Signs Vital Signs - First Documented 11/30/19 01:21 Temp 39.0 Pulse 72 Resp 17 B/P (MAP) 134/72 (92) Capillary Refill : Less Than 3 Seconds Height, Weight, BMI Height: 5'7.00" Weight: 123lbs. 2.0oz. 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 COVID-19 pending. UTI- started on antibiotics, management per medical services. Chest pain, nonspecific etiology, troponin negative. Continue to monitor. EKG reveals sinus bradycardia. Nonobstructive coronary artery disease per cardiac catheterization done January 21, 2019. Repeat cardiac catheterization done June 2019 after having elevated troponin showed tortuous coronaries with nonobstructive disease, continue to monitor. Paroxysmal atrial fibrillation, was hospitalized earlier this month for A. fib with RVR. Was unable to tolerate Cardizem secondary to hypotension. Was started on sotalol, however was discontinued secondary to prolonged QT interval. Currently maintained on amiodarone. Norvasc recently discontinued secondary to bradycardia. Bradycardia- norvasc recently discontinue, continue to hold Toprol XL, continue to monitor. History of Dick's palsy Hypertension, continue to monitor. Hyperlipidemia, well controlled, maintained on lovastatin, continue to monitor History of Parkinson's. Nonobstructive carotid artery stenosis per carotid duplex done February 2019, continue to monitor. Thank you for allowing us to participate in the management of Ms. Mccartney. This is Aspen Doss PA-C, as a scribe for Dr. Kaplan. This is Dr. Kaplan, I have reviewed the record, evaluated in detail her history and EKG. Review her labs. As stated above she is an 84-year-old lady with chest pain and fever and dyspnea, COVID is pending Known to have mild coronary artery disease per cardiac catheterization in 2018 and 2019, tortuous arteries. Doubt that it has changed over the past few months. Has history of paroxysmal atrial fibrillation. Episode of tachycardia and bradycardia Hold Toprol for now and monitor heart rate Monitor blood pressure and lipids Clinical Quality Measures AMI/AHF: ASA po Prior to arrival: Yes DVT/VTE Risk/Contraindication: Risk Factor Score Per Nursin RFS Level Per Nursing on Admit: 4+=Very High ASPEN MEHTA Nov 30, 2019 12:40 pm ESTRELLA KAPLAN MD Nov 30, 2019 1:36 pm
--- NOTE | 2019-11-30 13:19 | History & Physical-Hospitalist ---
History of Present Illness HPI/Chief Complaint Pt is an 84yoCF with a PMH of a-maryjane who presented to the ER due to chest pain. She states she was sound asleep and it awoke her. She denies any pain at the moment and she has been up and ambulating without any difficulty now. She was found to be febrile and she states she was having chills at home when she woke up but otherwise denies any specific complaints. She fell last week because she has poor balance and has a wound on her hand that is stitched. She was started on Zosyn for this last night. She was also found to be incidentally hypoxic. 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 Patients Allergies have been reviewed. Allergies Allergies Coded Allergies Sulfa (Sulfonamide Antibiotics) (Verified Allergy, Unknown, hives, 11/16/19) Past [id number] Hx Past Med/Social Hx: Reviewed Nursing Past Med/Soc Hx Patient Social History Employed/Student: retired Alcohol Use: Rarely Uses Recreational Drug Use: No Smoking Status: Former Smoker Former Smoker, Quit: Jun 17, 1999 Type Used: Cigarettes Recent Foreign Travel: No Contact w/other who traveled: No Recent Hopitalizations: No Recent Infectious Disease Expo: No Immunizations Up To Date Tetanus Booster (TDap): Less than 5yrs Pediatric: Yes Date of Pneumonia Vaccine: Feb 20, 2016 Date of Influenza Vaccine: Jun 10, 2019 Seasonal Allergies Seasonal Allergies: Yes Past Medical History Surgeries: Abdominal, Cardiac, Hysterectomy, Orthopedic, Tonsillectomy Cardiac: Atrial Fibrillation, Heart Attack, Hypertension Neurological: Stroke Reproductive: No Sexually Transmitted Disease: No Hysterectomy, Menopausal Musculoskeletal: Degenerate Disk Disease, Arthritis, Chronic Back Pain Psychosocial: Anxiety History of Blood Disorders: No Family History Patient reports no known family medical history. No Pertinent Family Hx Review of Systems Constitutional: chills, fever; No weakness EENTM: no symptoms reported Respiratory: No cough, No short of breath Cardiovascular: chest pain; No edema; Hx of Intervention Gastrointestinal: no symptoms reported Genitourinary: no symptoms reported Musculoskeletal: no symptoms reported Skin: no symptoms reported Psychiatric/Neurological: No Symptoms Reported Physical Exam Physical Exam Vital Signs Vital Signs - First Documented 11/30/19 01:21 Temp 39.0 Pulse 72 Resp 17 B/P (MAP) 134/72 (92) Capillary Refill : Less Than 3 Seconds Height, Weight, BMI Height: 5'7.00" Weight: 123lbs. 2.0oz. [id number]; 21.67 BMI Method:Stated General Appearance: No Apparent Distress HEENT: PERRL/EOMI, Moist Mucous Membranes Neck: Normal Inspection, Supple Respiratory: Lungs Clear, No Respiratory Distress Cardiovascular: No JVD, No Murmur, Bradycardia Extremity: No Calf Tenderness, No Pedal Edema, Other (left hand with healing laceration that has previously been sutured, no erythema or edema) Neurologic/Psychiatric: Alert, Oriented x3 Results Results/Procedures Labs Laboratory Tests 11/30/19 01:30 Patient resulted labs reviewed. Imaging: Reviewed Imaging Report Assessment/Plan Admission Diagnosis sepsis Admission Status: Inpatient Order (span 2 midnights) Reason for Inpatient Admission: see below Assessment and Plan Sepsis UTI Continue Zosyn Await culture and sensitivities COVID19 pending Chest pain A-fib bradycardia CAD Hypoxia Cardiology consulted, appreciate recs Hold home metoprolol Continue Eliquis for stroke ppx Continue home meds Parkinson's Disease Continue Sinemet HTN Continue home meds Diagnosis/Problems Diagnosis/Problems (1) Sepsis Status: Acute Qualifiers: Sepsis type: sepsis due to unspecified organism Sepsis acute organ dysfunction status: without acute organ dysfunction Qualified Codes: A41.9 - Sepsis, unspecified organism (2) Chest pain Status: Acute Qualifiers: Chest pain type: unspecified Qualified Codes: R07.9 - Chest pain, unspecified (3) HLD (hyperlipidemia) Qualifiers: Hyperlipidemia type: unspecified Qualified Codes: E78.5 - Hyperlipidemia, unspecified (4) Paroxysmal atrial fibrillation (5) Parkinson's disease (6) Hypertension (7) Hypoxia Status: Acute (8) Urinary tract infection Status: Acute Qualifiers: Urinary tract infection type: site unspecified Hematuria presence: without hematuria Qualified Codes: N39.0 - Urinary tract infection, site not specified Clinical Quality Measures AMI/AHF: ASA po Prior to arrival: Yes DVT/VTE Risk/Contraindication: Risk Factor Score Per Nursin RFS Level Per Nursing on Admit: 4+=Very High KRISS MORROW MD Nov 30, 2019 13:19
[2019-11-30] MEDS ORDERED: AMIO200T4 PO (15:42)
--- NOTE | 2019-11-30 15:44 | NUR ---
SPOKE WITH THE PT (I CALLED HER ROOM PHONE) AND WENT THRU THE EXT MED HISTORY TO COMPLETE THE MED REC PT WAS HERE AT THE BEGINNING OF NOVEMBER AND I SPOKE WITH HER THEN AND COMPLETED THE MED REC ON 11-16-2019 THERE IS A DETAILED NOTE ON 11-16-2019 TO REFERENCE IF NEEDED LISINOPRIL 20MG: EXT MED HISTORY SHOWS 1 TAB DAILY HOWEVER PT SAYS SHE IS TAKING 2 TABS DAILY AMIODARONE 200MG: WHEN THE PT WAS DISCHARGED SHE WAS TO TAKE 2 TABS BID X 7 DAYS THEN 1 TAB BID THEREAFTER- SHE HAS COMPLETED THE FIRST 7 DAYS OF TREATMENT AND IS NOW ON THE MAINTENANCE THERAPY OTC MEDS: ASPIRIN 81 VIT D VIT B12 DOCUSATE PRESERVISION
[2019-11-30] MEDS ORDERED: PANTOPRAZOLE 40 MG (PROTONIX) TAB PO PRN (17:15)
[2019-11-30] MEDS ORDERED: ASPIRIN E.C. 81 MG (ECOTRIN) TAB PO SCH (21:00)
[2019-11-30] MEDS ORDERED: APIXABAN 2.5 MG (ELIQUIS) TABLET PO SCH (21:00)
[2019-11-30] MEDS ORDERED: SIMvastatin 10 MG (ZOCOR) TAB PO SCH (21:00)
[2019-11-30] MEDS ORDERED: DIAZEPAM 5 MG (VALIUM) TABLET PO PRN (21:00)
--- NOTE | 2019-11-30 21:00 | NUR ---
Dr. Morton notified of pt being Negative for Covid. Ok for room transfer and to take out of isolation.
[2019-11-30] MEDS: SINEMET 25/100 (CARBIDOPA/LEVODOPA) TAB PO SCH (21:41)
[2019-11-30] MEDS: ETODOLAC 200 MG (LODINE) CAP PO SCH (21:41)
[2019-11-30] MEDS: rOPINIRole 1 MG (REQUIP) TABLET PO SCH (21:42)
[2019-12-01] VITALS: BP 119/64
[2019-12-01] MEDS: PIPERACILLIN/TAZO 4.5 GM/NS 100 ML IV SCH ×4 (02:47→10:13)
[2019-12-01 04:00] VITALS: BP 130/66
[2019-12-01] MEDS: NS IV 1000 ML 1,000 ML IV SCH (04:19)
[2019-12-01 05:03] LABS: CHOLESTEROL 103 MG/DL (< 200); HDL CHOLESTEROL 49 MG/DL (40-60); TRIGLYCERIDES 53 MG/DL (<150); VLDL CHOLESTEROL 11 MG/DL (5-40)
[2019-12-01] MEDS: VANCOMYCIN 1 GM/NS 250 ML IVPB IV SCH ×2 (07:04)
[2019-12-01 08:36] VITALS: BP 152/80
--- NOTE | 2019-12-01 08:38 | Cardiology Progress Note ---
Subjective Date Seen by Provider: Dec 01, 2019 Time Seen by Provider: 08:35 Subjective/Events-last exam Patient is laying down in bed, feeling better. No chest pain was reported. Review of Systems General: No Chills, No Night Sweats, No Fatigue, No Malaise, No Appetite, No Other HEENT: No Head Aches, No Visual Changes, No Eye Pain, No Ear Pain, No Dysphasia, No Sinus Congestion, No Post Nasal Drip, No Sore Throat, No Other Pulmonary: No Dyspnea, No Cough, No Pleuritic Chest Pain, No Other Cardiovascular: No: Chest Pain, Palpitations, Orthopnea, Paroxysmal Noc. Dyspnea, Edema, Lt Headedness, Other Focused Exam Lactate Level 11/30/19 01:30: Lactic Acid Level 1.45 Objective-Cardiology Exam Last Set of Vital Signs Vital Signs 12/01/19 04:00 Temp 36.7 Pulse 54 Resp 20 B/P (MAP) 130/66 (87) Pulse Ox 95 O2 Delivery Nasal Cannula O2 Flow Rate 2.00 Capillary Refill : Less Than 3 Seconds I&O Intake and Output 12/01/19 00:00 Intake Total 2110 ml Output Total 1100 ml Balance 1010 ml Intake Oral 630 ml IV Total 1480 ml Output Urine Total 1100 ml Daily Weight Change No No General: Alert, Oriented X3, Cooperative HEENT: Atraumatic, PERRLA Neck: Supple, No JVD, No Thyromegaly Lungs: Clear to Auscultation, Normal Air Movement Heart: Regular Rate, Normal S1, Normal S2, No Murmurs Abdomen: Normal Bowel Sounds, Soft, No Tenderness, No Hepatosplenomegaly, No Masses Extremities: No Clubbing, No Cyanosis, No Edema, Normal Pulses, No Tenderness/Swelling Skin: No Rashes, No Breakdown, No Significant Lesion Neuro: Normal Gait, Normal Speech, Strength at 5/5 X4 Ext, Normal Tone, Sensation Intact Psych/Mental Status: Mental Status NL, Mood NL Results Lab Laboratory Tests Test 12/01/19 04:10 Range/Units Triglycerides Level 53 <150 MG/DL Cholesterol Level 103 < 200 MG/DL LDL Cholesterol Direct 39 1-129 MG/DL VLDL Cholesterol 11 5-40 MG/DL HDL Cholesterol 49 40-60 MG/DL A/P-Cardiology Admission Diagnosis Chest pain Dyspnea PAF HTN Assessment/Plan Urinary tract infection, receiving antibiotic, managed by medical team. Improving and feeling better COVID testing negative Chest pain, nonspecific etiology, troponin negative. EKG reveals sinus bradycardia, maintained on metoprolol. Asymptomatic, continue to monitor. Nonobstructive coronary artery disease per cardiac catheterization done January 21, 2019. Repeat cardiac catheterization done June 2019 after having elevated troponin showed tortuous coronaries with nonobstructive disease, continue to monitor. Paroxysmal atrial fibrillation, was hospitalized earlier this month for A. fib with RVR. Was unable to tolerate Cardizem secondary to hypotension. Was started on sotalol, however was discontinued secondary to prolonged QT interval. Currently maintained on amiodarone. Norvasc recently discontinued secondary to bradycardia. Bradycardia- norvasc recently discontinue, amiodarone is on hold. Continue to monitor History of Dick's palsy Hypertension, was borderline hypotensive, blood pressure is better at this time. Continue to monitor Hyperlipidemia, well controlled, maintained on lovastatin, continue to monitor History of Parkinson's. Nonobstructive carotid artery stenosis per carotid duplex done February 2019, continue to monitor. Clinical Quality Measures AMI/AHF: ASA po Prior to arrival: Yes DVT/VTE Risk/Contraindication: Risk Factor Score Per Nursin RFS Level Per Nursing on Admit: 4+=Very High ESTRELLA GRECO MD Dec 01, 2019 08:38
[2019-12-01] MEDS ORDERED: lisINopril 20 MG (PRINIVIL) TABLET PO SCH (09:00)
[2019-12-01] MEDS: SINEMET 25/100 (CARBIDOPA/LEVODOPA) TAB PO SCH (09:05)
[2019-12-01] MEDS: ETODOLAC 200 MG (LODINE) CAP PO SCH (09:05)
[2019-12-01] MEDS: rOPINIRole 1 MG (REQUIP) TABLET PO SCH (09:05)
[2019-12-01] MEDS: APIXABAN 2.5 MG (ELIQUIS) TABLET PO SCH (09:05)
--- NOTE | 2019-12-01 11:20 | Discharge Inst-Simple/Standard ---
Discharge Inst-Standard Discharge Medications New, Converted or Re-Newed RX: Transmitted to Pharmacy Patient Instructions/Follow Up Plan of Care/Instructions/FU: Please continue to take your medications as written. Please hold your metoprolol until you see Dr Kaplan next week. Activity as Tolerated: Yes Discharge Diet: Cardiac Diet Return to The Hospital For: Chest pain, shortness of breath, palpitations, passing out, weakness, fever, low heart rate, if you feel you are getting worse. KRISS MORROW MD Dec 01, 2019 11:20
[2019-12-01] MEDS ORDERED: CEPH-507 PO (11:23)
[2019-12-01 11:38] VITALS: BP 134/78
[2019-12-01 14:30] VITALS: BP 134/78
--- NOTE | 2019-12-01 14:57 | Discharge Summary ---
Diagnosis/Chief Complaint Date of Admission Nov 30, 2019 at 04:45 Date of Discharge Discharge Date: Dec 01, 2019 Admission Diagnosis sepsis Primary Care No,Local Physician Discharge Diagnosis (1) Sepsis Status: Acute (2) Chest pain Status: Acute (3) HLD (hyperlipidemia) (4) Paroxysmal atrial fibrillation (5) Parkinson's disease (6) Hypertension (7) Hypoxia Status: Acute (8) Urinary tract infection Status: Acute Discharge Summary Discharge Physical Exam Allergies: Coded Allergies: Sulfa (Sulfonamide Antibiotics) (Verified Allergy, Unknown, hives, 11/16/19) Vitals & I&Os Vital Signs Date Time Temp Pulse Resp B/P (MAP) Pulse Ox O2 Delivery O2 Flow Rate FiO2 12/01/19 11:38 36.8 64 20 134/78 (96) 96 Room Air 12/01/19 09:00 2.00 General Appearance: No Apparent Distress, WD/WN Respiratory: Lungs Clear, No Respiratory Distress Cardiovascular: Regular Rate, Rhythm, No Murmur Hospital Course Pt was admitted due to UTI and sepsis. She was also found to be bradycardic. Cardiology was consulted for this and her metoprolol was stopped. Her heart rate improved. She is to follow up with Dr Kaplan as an outpatient regarding this. She was treated with Rocephin while inpatient and did well. E coli was growing on her urine culture and she was transitioned to Keflex per her previous culture's sensitivities. Labs (last 24 hrs) Laboratory Tests 12/01/19 04:10: Triglycerides Level 53, Cholesterol Level 103, LDL Cholesterol Direct 39, VLDL Cholesterol 11, HDL Cholesterol 49 Microbiology 11/30/19 Urine Culture - Preliminary, Resulted Escherichia coli 11/30/19 Influenza Types A,B Antigen (HIEU) - Final, Complete Patient resulted labs reviewed. Imaging: Reviewed Imaging Report Discussion & Recommendations Discharge Planning: >30 minutes discharge planning Discharge Home Medications: Active Scripts Active Keflex (Cephalexin) 500 Mg Capsule 500 Mg PO BID Reported Amiodarone HCl 200 Mg Tablet 200 Mg PO BID Preservision Areds Tablet (Vit A/Vit C/Vit E/Zinc/Copper) 1 Each Tablet 1 Each PO BID Hydrocodone-Acetamin 10-325 mg (Hydrocodone/Acetaminophen) 1 Each Tablet 1-2 Ea PO Q4 -6H PRN Vitamin B-12 (Cyanocobalamin (Vitamin B-12)) 1,000 Mcg Capsule 2,000 Mcg PO DAILY Pantoprazole Sodium 40 Mg Tablet.dr 40 Mg PO DAILY PRN Vitamin D3 (Cholecalciferol (Vitamin D3)) 50 Mcg Capsule 50 Mcg PO DAILY Lisinopril 20 Mg Tablet 40 Mg PO DAILY TAKES 2 (20MG) TABS Eliquis (Apixaban) 2.5 Mg Tablet 2.5 Mg PO BID Lovastatin 10 Mg Tablet 10 Mg PO HS Aspir 81 (Aspirin) 81 Mg Tablet.dr 81 Mg PO HS Ropinirole HCl 1 Mg Tablet 1 Mg PO TID Carbidopa-Levodopa 25-100 Tab (Carbidopa/Levodopa) 1 Each Tablet 2 Ea PO TID Docusate Sodium 100 Mg Capsule 200 Mg PO BID TAKES 2 (100 MG) CAPSULES Diclofenac Sodium 50 Mg Tablet.dr 50 Mg PO BID Diazepam 10 Mg Tablet 10 Mg PO HS PRN Tramadol HCl 50 Mg Tablet 50 Mg PO Q6H PRN Instructions to patient/family Please see electronic discharge instructions given to patient. Clinical Quality Measures AMI/AHF: ASA po Prior to arrival: Yes DVT/VTE Risk/Contraindication: Risk Factor Score Per Nursin RFS Level Per Nursing on Admit: 4+=Very High Problem Qualifiers (1) Sepsis: Sepsis type: sepsis due to unspecified organism Sepsis acute organ dysfunction status: without acute organ dysfunction Qualified Codes: A41.9 - Sepsis, unspecified organism (2) Chest pain: Chest pain type: unspecified Qualified Codes: R07.9 - Chest pain, unspecified (3) HLD (hyperlipidemia): Hyperlipidemia type: unspecified Qualified Codes: E78.5 - Hyperlipidemia, unspecified (4) Urinary tract infection: Urinary tract infection type: site unspecified Hematuria presence: without hematuria Qualified Codes: N39.0 - Urinary tract infection, site not specified KRISS MORROW MD Dec 01, 2019 14:57
[2019-12-02] MEDS ORDERED: TROUGH ORDER-PHARMACY XX ONE (06:00)
== END 2019-12-01 14:30 | disposition home or self-care (01) | DRG 872 ==
LOC: EDUNIT# 01:16 → ER 01:17 → 4TH 04:45
PROVIDERS: ADMIT Internal Medicine; ATTEND Internal Medicine
DX: A41.51 Sepsis due to Escherichia coli [E. coli] (principal); N39.0 Urinary tract infection, site not specified; R09.02 Hypoxemia; I25.2 Old myocardial infarction; I48.0 Paroxysmal atrial fibrillation; I10 Essential (primary) hypertension; M19.91 Primary osteoarthritis, unspecified site; Z96.653 Presence of artificial knee joint, bilateral; Z96.612 Presence of left artificial shoulder joint; G20 Parkinson's disease; F41.9 Anxiety disorder, unspecified; I25.10 Atherosclerotic heart disease of native coronary artery without angina pectoris; R00.1 Bradycardia, unspecified; Z87.891 Personal history of nicotine dependence; Z86.73 Personal history of transient ischemic attack (TIA), and cerebral infarction without residual deficits; Z88.2 Allergy status to sulfonamides
CPT/HCPCS: 36415; 71045; 80053; 80061; 81000; 83605; 83735; 83874; 83880; 84145; 84484; 85007; 85027; 85379; 85610; 85730; 86141; 87040; 87077; 87088; 87186; 87635; 87804; 93005; 93041

== ENCOUNTER 2019-12-14 19:56 | Inpatient (IN) | payer MEDICARE, OTHER ==
[~2019-12-14] VITALS: Ht 160 cm; Wt 54.9 kg
[~2019-12-14 19:56] MED LIST changes: +CEPH-507 PO; +MULT-567 PO; -MULT1TAB69 PO
--- NOTE | 2019-12-14 20:25 | NUR ---
pt brought back to e.d. urine specimen obtained. pt reports generalized weakness, bilateral leg swelling, unsteady gait. spo2 noted to be in mid 70's on room air et. o2 applied at 3 l/m bringing spo2 up to 97% etco2 44. pt denies c/o feeling soa, denies exposure to covid. reports recently being treated for uti with out patient im rocephin.
--- NOTE | 2019-12-14 21:06 | ED General ---
General Chief Complaint: General Problems/Pain Stated Complaint: WEAKNESS / UNSTEADY Nursing Triage Note: C/O GENERALIZED WEAKNESS, REPORTS RECENTLY BEING TREATED FOR UTI. Nursing Sepsis Screen: No Definite Risk (AMY LANDAVERDE,) History of Present Illness Date Seen by Provider: Dec 14, 2019 Time Seen by Provider: 20:45 Initial Comments Ms. Mccartney is here due to weakness and unsteadiness. She was recently discharged from the hospital on Saturday (12/07) for a UTI. She was told that she needed to finish her antibiotics and visit with her PCP (Dr. Lewis in [place]). He gave her 1 shot daily for 3 days, but she is unsure what they were. She believes these shots have made her symptoms worse. She admits to stumbling and being unsteady but denies any fall or injury. She also admits to a headache. She denies shortness of breath or difficulty breathing, chest pain, or blurry vision. She admits to chills but denies fever. Also, she had some diarrhea earlier this last week and currently has nausea, but denies constipation or vomiting. While being evaluated, it was noted her O2 sat was 60%. On furthering questioning, she does state she is laboring a bit to breathe but denies shortness of breath. Severity: Mild Associated Systoms: No Chest Pain; Fever/Chills, Headaches, Nausea/Vomiting; No Shortness of Air; Weakness (AMY LANDAVERDE,) Severity: Moderate Associated Systoms: No Shortness of Air; Weakness (OSMEL PINON MD) Allergies and Home Medications Allergies Coded Allergies: Sulfa (Sulfonamide Antibiotics) (Verified Allergy, Unknown, hives, 11/16/19) Home Medications Amiodarone HCl 200 Mg Tablet, 200 MG PO BID, (Reported) Apixaban 2.5 Mg Tablet, 2.5 MG PO BID, (Reported) Aspirin 81 Mg Tablet.dr, 81 MG PO HS, (Reported) Carbidopa/Levodopa 1 Each Tablet, 2 EA PO TID, (Reported) Cyanocobalamin (Vitamin B-12) 1,000 Mcg Capsule, 2,000 MCG PO DAILY, (Reported) Diazepam 10 Mg Tablet, 10 MG PO HS PRN for ANXIETY, (Reported) Diclofenac Sodium 50 Mg Tablet.dr, 50 MG PO BID, (Reported) Docusate Sodium 100 Mg Capsule, 200 MG PO BID, (Reported) TAKES 2 (100 MG) CAPSULES Hydrocodone/Acetaminophen 1 Each Tablet, 1-2 EA PO Q4 -6H PRN for PAIN-MODERATE (5-7), (Reported) Lisinopril 20 Mg Tablet, 40 MG PO DAILY, (Reported) TAKES 2 (20MG) TABS Lovastatin 10 Mg Tablet, 10 MG PO HS, (Reported) Ropinirole HCl 1 Mg Tablet, 1 MG PO TID, (Reported) Patient Home Medication List Home Medication List Reviewed: Yes (AMY LANDAVERDE,) Home Medication List Reviewed: Yes (OSMEL PINON MD) Review of Systems Review of Systems Constitutional: chills; No fever; weakness EENTM: no symptoms reported Respiratory: other (laborning to breathe) Cardiovascular: no symptoms reported Genitourinary: dysuria (due to raw skin); No frequency, No hematuria Musculoskeletal: no symptoms reported Skin: no symptoms reported Psychiatric/Neurological: No Symptoms Reported Hematologic/Lymphatic: No Symptoms Reported Immunological/Allergic: no symptoms reported (AMY LANDAVERDE,) Constitutional: chills, weakness Respiratory: No cough, No short of breath Cardiovascular: No chest pain, No palpitations Gastrointestinal: No constipation, No nausea, No vomiting (OSMEL PINON MD) All Other Systems Reviewed Negative Unless Noted: Yes (OSMEL PINON MD) Past Prnvqvn-Mucsmd-Ilndqn Hx Past Med/Social Hx: Reviewed Nursing Past Med/Soc Hx (OSMEL PINON MD) Patient Social History Alcohol Use: Denies Use Recreational Drug Use: No Smoking Status: Former Smoker Type Used: Cigarettes Former Smoker, Quit: Jun 17, 1999 Recent Foreign Travel: No Contact w/Someone Who Travel: No Recent Infectious Disease Expo: No Recent Hopitalizations: No Physical Abuse: No Sexual Abuse: No Mistreated: No Fear: No (AMY LANDAVERDE,) Immunizations Up To Date Tetanus Booster (TDap): Less than 5yrs PED Vaccines UTD: Yes Date of Pneumonia Vaccine: Feb 20, 2016 Date of Influenza Vaccine: Jun 10, 2019 (AMY LANDAVERDE,) Seasonal Allergies Seasonal Allergies: Yes (AMY LANDAVERDE,) Past Medical History Surgeries: Yes Abdominal, Cardiac, Hysterectomy, Orthopedic, Tonsillectomy Respiratory: No Cardiac: Yes Atrial Fibrillation, Heart Attack, Hypertension Neurological: Yes (tremor) Parkinson's Disease, Stroke : No Reproductive Disorders: No [employer] History: Hysterectomy, Menopausal Sexually Transmitted Disease: No Genitourinary: No Gastrointestinal: No Musculoskeletal: Yes (BILATERAL KNEE REPLACEMENTS; LEFT SHOULDER REPLACEMENTS; ) Degenerate Disk Disease, Arthritis, Chronic Back Pain Endocrine: No HEENT: No Cancer: No Psychosocial: Yes Anxiety Integumentary: No Blood Disorders: No (AMY LANDAVERDE,) Family Medical History Reviewed Nursing Family Hx (OSMEL PINNO MD) Patient reports no known family medical history. No Pertinent Family Hx (AMY LANDAVERDE,) Physical Exam-Suspected Sepsis Physical Exam Vital Signs Vital Signs - First Documented (OSMEL PINON MD) Vital Signs Capillary Refill : Less Than 3 Seconds (AMY LANDAVERDE,) Blood Pressure Mean: 132 Height, Weight, BMI Height: 5'7.00" Weight: 123lbs. 2.0oz. [id number]; 21.00 BMI Method:Stated General Appearance: WD/WN, Mild Distress Respiratory: Normal Breath Sounds, No Accessory Muscle Use Cardiovascular: Regular Rate, Rhythm, No Murmur Gastrointestinal: Normal Bowel Sounds, Non Tender, Soft Extremity: Pedal Edema (1+ pitting bilaterally) Neurologic/Psychiatric: Alert, Oriented x3 Skin: normal color, warm/dry (AMY LANDAVERDE,) General Appearance: Mild Distress HEENT: PERRL/EOMI, Pharynx Normal Neck: Non Tender, Supple Respiratory: Crackles (right lower lobe); No Wheezing Cardiovascular: Regular Rate, Rhythm, No Murmur Gastrointestinal: Non Tender, Soft Back: Normal Inspection, No CVA Tenderness, No Vertebral Tenderness Extremity: Normal Range of Motion, Non Tender, Pedal Edema (1+ pitting bilaterally) Neurologic/Psychiatric: Alert, Oriented x3 Skin: normal color, warm/dry (OSMEL PINON MD) Focused Exam Lactate Level 12/14/19 20:50: Lactic Acid Level 0.82 (OSMEL PINON MD) Lactic Acid Level Laboratory Tests Test 12/14/19 20:50 Lactic Acid Level 0.82 MMOL/L (0.50-2.00) (OSMEL PINON MD) Progress/Results/Core Measures Suspected Sepsis Recent Fever Within 48 Hours: No Infection Criteria Present: Documented Infection New/Unexplained Altered Menta: No Sepsis Screen: No Definite Risk SIRS Temperature: Pulse: 70 Respiratory Rate: 16 Blood Pressure 185 /106 Mean: 132 (AMY LANDAVERDE,) Results/Orders Lab Results Laboratory Tests Test 12/14/19 20:34 12/14/19 20:50 Range/Units Urine Color YELLOW Urine Clarity CLEAR Urine pH 5.0 5-9 Urine Specific [place]ol[place] >=1.030 1.016-1.022 Urine Protein NEGATIVE NEGATIVE Urine Glucose (UA) NEGATIVE NEGATIVE Urine Ketones TRACE H NEGATIVE Urine Nitrite NEGATIVE NEGATIVE Urine Bilirubin NEGATIVE NEGATIVE Urine Urobilinogen 0.2 < = 1.0 MG/DL Urine Leukocyte Esterase NEGATIVE NEGATIVE Urine RBC (Auto) NEGATIVE NEGATIVE Urine RBC NONE /HPF Urine WBC 0-2 /HPF Urine Squamous Epithelial Cells 2-5 /HPF Urine Crystals NONE /LPF Urine Bacteria TRACE /HPF Urine Casts PRESENT /LPF Urine Hyaline Casts RARE /LPF Urine Mucus SMALL H /LPF Urine Culture Indicated CULTURE PENDING White Blood Count 8.1 4.3-11.0 10^3/uL Red Blood Count 4.17 L 4.35-5.85 10^6/uL Hemoglobin 11.5 11.5-16.0 G/DL Hematocrit 37 35-52 % Mean Corpuscular Volume 90 80-99 FL Mean Corpuscular Hemoglobin 28 25-34 PG Mean Corpuscular Hemoglobin Concent 31 L 32-36 G/DL Red Cell Distribution Width 16.6 H 10.0-14.5 % Platelet Count 412 H 130-400 10^3/uL Mean Platelet Volume 10.0 7.4-10.4 FL Neutrophils (%) (Auto) 70 42-75 % Lymphocytes (%) (Auto) 17 12-44 % Monocytes (%) (Auto) 11 0-12 % Eosinophils (%) (Auto) 1 0-10 % Basophils (%) (Auto) 0 0-10 % Neutrophils # (Auto) 5.7 1.8-7.8 X 10^3 Lymphocytes # (Auto) 1.4 1.0-4.0 X 10^3 Monocytes # (Auto) 0.9 0.0-1.0 X 10^3 Eosinophils # (Auto) 0.1 0.0-0.3 10^3/uL Basophils # (Auto) 0.0 0.0-0.1 10^3/uL Prothrombin Time 14.8 H 12.2-14.7 SEC INR Comment 1.1 0.8-1.4 Activated Partial Thromboplast Time 34 24-35 SEC Sodium Level 140 135-145 MMOL/L Potassium Level 3.7 3.6-5.0 MMOL/L Chloride Level 101 98-107 MMOL/L Carbon Dioxide Level 28 21-32 MMOL/L Anion Gap 11 5-14 MMOL/L Blood Urea Nitrogen 30 H 7-18 MG/DL Creatinine 0.95 0.60-1.30 MG/DL Estimat Glomerular Filtration Rate 56 BUN/Creatinine Ratio 32 Glucose Level 101 70-105 MG/DL Lactic Acid Level 0.82 0.50-2.00 MMOL/L Calcium Level 9.0 8.5-10.1 MG/DL Corrected Calcium 9.2 8.5-10.1 MG/DL Total Bilirubin 0.3 0.1-1.0 MG/DL Aspartate Amino Transf (AST/SGOT) 33 5-34 U/L Alanine Aminotransferase (ALT/SGPT) 8 0-55 U/L Alkaline Phosphatase 89 40-136 U/L C-Reactive Protein High Sensitivity 0.87 H 0.00-0.50 MG/DL B-Type Natriuretic Peptide 927.5 H <100.0 PG/ML Total Protein 6.6 6.4-8.2 GM/DL Albumin 3.7 3.2-4.5 GM/DL Procalcitonin 0.06 <0.10 NG/ML (OSMEL PINON MD) My Orders Orders - OSMEL PINON MD Cbc With Automated Diff (12/14/19 21:04) Comprehensive Metabolic Panel (12/14/19 21:04) Blood Culture (12/14/19 21:04) Sputum Culture (12/14/19 21:04) Urinalysis (12/14/19 21:04) Urine Culture (12/14/19 21:04) Protime With Inr (12/14/19 21:04) Partial Thromboplastin Time (12/14/19 21:04) Chest 1 View, Ap/Pa Only (12/14/19 21:04) Ed Iv/Invasive Line Start (12/14/19 21:04) Vital Signs Adult Sepsis Patie Q15M (12/14/19 21:04) O2 (12/14/19 21:04) Remove Rings In Anticipation O (12/14/19 21:04) Lactic Acid Analyzer (12/14/19 21:04) BNP (12/14/19 21:04) Hs C Reactive Protein (12/14/19 21:04) Procalcitonin (Pct) (12/14/19 21:04) Ekg Tracing (12/14/19 21:10) Ct Angio Chest W (12/14/19 21:30) Ed Iv/Invasive Line Start (12/14/19 21:30) Ns Iv 500 Ml (Sodium Chloride 0.9%) (12/14/19 21:30) Iohexol Injection (Omnipaque 350 Mg/Ml 1 (12/14/19 21:45) Received Contrast (Hold Metformin- Contr (12/14/19 21:45) Ns (Ivpb) (Sodium Chloride 0.9% Ivpb Bag (12/14/19 21:45) Furosemide Injection (Lasix Injection) (12/14/19 23:27) Troponin I (12/14/19 23:31) (OSMEL PINON MD) Medications Given in ED Current Medications Medications Dose Ordered Sig/Ysabel Route Start Time Stop Time Status Last Admin Dose Admin Iohexol 100 ml ONCE ONCE IV 12/14/19 21:45 12/14/19 21:46 DC 12/14/19 21:54 100 ML Sodium Chloride 100 ml ONCE ONCE IV 12/14/19 21:45 12/14/19 21:46 DC 12/14/19 21:54 80 ML Sodium Chloride 500 ml @ 0 mls/hr Q0M ONCE IV 12/14/19 21:30 12/14/19 21:31 DC 12/14/19 21:55 0 MLS/HR (OSMEL PINON MD) Vital Signs/I&O 12/14/19 12/14/19 20:25 20:25 Temp 37.0 Pulse 70 Resp 16 B/P (MAP) 185/106 (132) Pulse Ox 99 97 O2 Delivery Nasal Cannula Nasal Cannula O2 Flow Rate 3.00 3.00 (OSMEL PINON MD) Vital Signs/I&O Capillary Refill : Less Than 3 Seconds (AMY LANDAVERDE,) Blood Pressure Mean: 132 Progress Note : Progress Note I have seen and evaluated the patient and agree with above except as indicated. I have directed the plan of care. Patient is here with weakness today as well as dizziness and shortness of breath. Noted to have initial O2 sat of 60% with good waveform. O2 saturations increased to 98% on 4 L. Patient not normally on oxygen. Denies nausea, vomiting or chest pain. Does have history of atrial fibrillation and does take Eliquis as directed. Reports taking all of her meds as directed. Plan for IV, labs, EKG, chest x-ray as well as blood cultures and lactic acid given recent history of sepsis. We will check UA as well. Monitor patient. 2129: CT angiogram of the chest ordered due to abnormal findings on chest x-ray which may be related to edema but does have concerning picture for p neumonia and or infiltrate which may be secondary to pulmonary embolism given her history. Patient still requiring oxygen. Monitor patient. 0: I did discuss the case with Dr. Morton. Patient has findings of pulmonary edema likely related to heart failure. Lasix [address] Morton accepts patient for admission, inpatient status with consult to Dr. Kaplan in the morning . This was discussed with the patient who agrees with the plan. (OSMEL PINON MD) Diagnostic Imaging Diagonstic Imaging: Xray Plain Films/CT/US/NM/MRI: chest Comments [facility] [place] NAME: MJ MCCARTNEY [facility] REC#: [id number] PT STATUS: REG ER : 1935 PHYSICIAN: OSMEL PINON MD ADMIT DATE: 12/14/19/ER Signed Date of Exam:12/14/19 CHEST 1 VIEW, AP/PA ONLY EXAMINATION: Chest 1 view HISTORY: Weakness COMPARISON: 11/30/2019 FINDINGS: There is a left shoulder arthroplasty. Heart is enlarged. There are small pleural effusions. No pneumothorax. There is mild to moderate edema. IMPRESSION: 1. Mild to moderate edema with enlarged heart and small pleural effusions. Dictated by: Dictated on workstation # [id number] Dict: 12/14/192128 Trans: 12/14/192151 [facility] [id number] Interpreted by: ROULA GALINDO MD Electronically signed by: ROULA GALINDO MD 12/14/192151 (OSMEL PINON MD) Departure Communication (Admissions) Time/Spoke to Admitting Phy: 23:30 (OSMEL PINON MD) Impression Primary Impression: Acute heart failure Qualified Codes: I50.9 - Heart failure, unspecified Disposition: ADMITTED INPATIENT Condition: Stable Admissions Decision to Admit Reason: Admit from ER (General) Decision to Admit/Date: Dec 14, 2019 Time/Decision to Admit Time: 23:30 (OSMEL PINON MD) Departure-Patient Inst. Referrals: NO,LOCAL PHYSICIAN (PCP/Family) Primary Care Physician AMY LANDAVERDE, Dec 14, 2019 21:06 OSMEL PINON MD Dec 14, 2019 23:39
[2019-12-14 21:12] LABS: BASOPHILS % (AUTO) 0 % (0-10); EOSINOPHILS # (AUTO) 0.1 10^3/uL (0.0-0.3); EOSINOPHILS % (AUTO) 1 % (0-10); HEMATOCRIT 37 % (35-52); HEMOGLOBIN 11.5 G/DL (11.5-16.0); LYMPHOCYTES # (AUTO) 1.4 X 10^3 (1.0-4.0); LYMPHOCYTES % (AUTO) 17 % (12-44); MEAN CORPUSCULAR HEMOGLOBIN 28 PG (25-34); MEAN CORPUSCULAR HGB CONC 31 G/DL (32-36); MEAN CORPUSCULAR VOLUME 90 FL (80-99); MONOCYTES # (AUTO) 0.9 X 10^3 (0.0-1.0); MONOCYTES % (AUTO) 11 % (0-12); NEUTROPHILS # (AUTO) 5.7 X 10^3 (1.8-7.8); NEUTROPHILS % (AUTO) 70 % (42-75); PLATELET COUNT 412 10^3/uL (130-400); RED CELL DISTRIBUTION WIDTH 16.6 % (10.0-14.5); WHITE BLOOD COUNT 8.1 10^3/uL (4.3-11.0)
[2019-12-14 21:16] LABS: ALBUMIN 3.7 GM/DL (3.2-4.5); INR 1.1 (0.8-1.4); POTASSIUM 3.7 MMOL/L (3.6-5.0); PROTHROMBIN TIME PATIENT 14.8 SEC (12.2-14.7)
[2019-12-14 21:16] LABS: BILIRUBIN,URINE NEGATIVE (NEGATIVE); CLARITY,URINE CLEAR; COLOR,URINE YELLOW; GLUCOSE, URINE (UA) NEGATIVE (NEGATIVE); KETONES,URINE TRACE (NEGATIVE); LEUKOCYTE ESTERASE ,URINE NEGATIVE (NEGATIVE); NITRITE,URINE NEGATIVE (NEGATIVE); PROTEIN,URINE NEGATIVE (NEGATIVE)
--- OUTSIDE RECORDS SUMMARY | 2019-12-14 21:17 | XMS REPORT ---
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 Name Role Phone CARLA HIRSCH BIANCA Unavailable Unavailable TAPIA DO, FLORENCIA Unavailable Unavailable TAPIA DO, FLORENCIA Unavailable Unavailable MADDI ADRIAN, OSMEL J Unavailable Unavailable OSMEL PINON MD Unavailable Unavailable VAIBHAV BLAKE, GILBERTO K Unavailable Unavailable AMADEO PINO, WILL Denis Unavailable Unavailable CRISTHIAN PINO, KRISS Denis Unavailable Unavailable BO KEENAN Unavailable Unavailable SHREE DELVALLE MD Unavailable Unavailable MACEY PINO, KING Rhoades Unavailable Unavailable ROSY PINO, NAPOLEON Denis Unavailable Unavailable ROSY PINO, NAPOLEON Denis Unavailable Unavailable CRISTHIAN PINO, KRISS Denis Unavailable Unavailable OSMEL PINON MD Unavailable Unavailable NAEEM BLAKE, SHERINE M Unavailable Unavailable AMADEO PINO, WILL Denis Unavailable Unavailable Unavailable Unavailable Unavailable Unavailable Unavailable Unavailable Allergies Normalized Allergy Reported Date of Reaction(s) Care Provider Facility Allergy Type classification allergen Allergy Onset Drug Allergy Sulfonamides Sulfonamides 12-21-2008 - hives TEAGAN HLEEN Not Available (22 sources.) (antibiotic) (Antibiotic) MD ROSY ([id number] ) Medications No Information Problems Active Problems Problem Normalized Date Last Normalized Normalized Provider Fa cility Classification Problem(s) Recorded Problem Problem Sta tus Duration Congestive Acute Chronic Active N[facility]LEON [facility] heart failure; diastolic MD Kayla GALLEGOS nonhypertensiv (congestive) Hospital - e (7 sources.) heart failure [place] ([address]3374) Osteoporosis Age-related Chronic Active NAPOLEON [facility] Via (7 sources.) osteoporosis MD Kayla GALLEGOS without Hospital - current [place] pathological (34372) fracture Peripheral and Atherosclerosi Chronic Active WILL CHILDS [facility] Via visceral s of renal MD Garza atherosclerosi artery Hospital - s (8 sources.) Translations: [place] [ (99518) ATHEROSCLEROSI S OF AORTA] 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 Active WILL BRO MAN , [facility] Via atherosclerosi c heart MD Kayla faust and other disease of Hospital - heart disease [place] (32 sources.) coronary (45072) artery without angina pectoris Translations: [ OLD MYOCARDIAL INFARCTION] Acute Cerebral Chronic Active FLORENCIA TAPIA , Not Avai lable cerebrovascula infarction, DO (31294) r disease (5 unspecified sources.) Other bone Disorder of Episodic Active NAPOLEON Not Avail able disease and bone and MD ROSY (19927) musculoskeleta cartilage, l deformities unspecified (1 source.) Spondylosis; Dorsalgia, 11-18-2019 - Episodic Active WILL RED MAN , [facility] Via intervertebral unspecified MD Garza disc Hospital - disorders; [place] other back (98359) problems (21 sources.) Chronic Emphysema, Chronic Active NAPOLEON [facility] Via obstructive unspecified MD Kayla GALLEGOS pulmonary Hospital - disease and [place] bronchiectasis (99653) (7 sources.) Other Encounter for 11-06-2019 - Episodic Active ADAM STAUFFER EW Not Available screening for screening (06247) suspected mammogram for conditions malignant (not mental neoplasm of disorders or breast infectious Translations: disease) (13 [ SCRN sources.) MAMMO-HIGH RISK PT, MALIGNANT NEOPL, OTH ABN AND INCONCLUSIVE FINDINGS ON DX ] Essential Essential 11-18-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 Active FLORENCIA TAPIA , Not Available hypertension (primary) DO (62153) (24 sources.) hypertension Other Facial Episodic Active FLORENCIA TAPIA , Not Avai lable connective weakness DO (68654) tissue disease (5 sources.) Anxiety Generalized 11-18-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 Active FLORENCIA TAPIA , Not Available disorders (24 anxiety DO (51109) sources.) disorder Translations: [ ANXIETY DISORDER, UNSPECIFIED] Paralysis (5 Hemiplegia, Chronic Active FLORENCIA TAPIA , No t Available sources.) unspecified DO (39289) affecting left nondominant side Disorders of Hyperlipidemia 11-18-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 Active FLORENCIA TAPIA , Not Available lipid , unspecified DO (29537) metabolism (19 sources.) Hypertension Hypertensive Chronic Active N[facility]OLEON [facility] Vi a with heart disease MD Kayla GALLEGOS complications with heart Hospital - and secondary failure [place] hypertension (39340) (7 sources.) Other Hypotension, 11-18-2019 - Episodic Active KRISS FAL K , [facility] Via circulatory unspecified MD Garza disease (7 Hospital - sources.) [place] (87719) Other lower Hypoxemia 12-01-2019 - Episodic Active WILL ESCOBEDO N , [facility] Via respiratory MD [facility]za disease (1 Hospital - source.) [place] (22324) Other showcase maker 11-18-2019 - Episodic Active N[facility]OLEON [facility] Via aftercare (14 (current) use MD Kayla GALLEGOS sources.) of Hospital - anticoagulants [place] (32314) Cancer of Malignant Chronic Active ADAM JON Not Avail able breast (1 neoplasm of (51794) source.) breast (female), unspecified Acute Myocardial Chronic Active WILL CHILDS , [facility] Vi a myocardial infarction MD Garza infarction (11 type 2 Hospital - sources.) [place] (10278) 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 Active GENIA N CRISTHIAN , [facility] Via stenosis of stenosis of MD Garza precerebral unspecified Hospital - arteries (7 carotid artery [place] sources.) (15329) Nonspecific Other chest 12-01-2019 - Episodic Active WILL RED MAN , [facility] Via chest pain (4 pain MD Garza sources.) Translations: Hospital - [ CHEST PAIN, [place] UNSPECIFIED] (73142) Other acquired Other forms of Chronic Active OSMEL MADDI , [facility] Via deformities (1 scoliosis, DC Kayla source.) lumbar region [facility] (38910) Other upper Other seasonal 12-01-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 Active WILL AMADEO , [facility] Via respiratory allergic MD Garza disease (15 rhinitis Hospital - sources.) [place] (39394) Parkinson`s Parkinson's 11-18-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 Active WILL RED MAN , [facility] Via disease (14 disease MD Garza sources.) [facility] (37194) Screening and Personal 11-18-2019 - Episodic Active GILBERTOLexus ESPOSITO DO [facility] Via history of history of [facility] mental health nicotine Hospital - and substance dependence [place] abuse codes (93969) (26 sources.) Other Personal 11-18-2019 - Episodic Active GILBERTO VAIBHAV DO [facility] Via circulatory history of Kayla disease (20 transient Hospital - sources.) ischemic [place] attack (TIA), (84753) and cerebral infarction without residual deficits 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-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 Active GILBERTO VAIBHAV , DO [facility] Via 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, Hospital - (26 sources.) bilateral [place] (61663) Other Presence of Chronic Active GILBERTO VAIBHAV , DO [facility] V ia connective left Kayla tissue disease artificial hip Hospital - (5 sources.) joint [place] (97240) 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-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 Active WILLCHAVO CHILDS , [facility] Via connective left MD Garza tissue disease artificial Hospital - (21 sources.) shoulder joint [place] (16198) Other Presence of Chronic Active NAPOLEON [facility] Via connective right MD Kayla GALLEGOS tissue disease artificial Hospital - (7 sources.) shoulder joint [place] (06224) Osteoarthritis Primary 11-18-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 Active WILL RED BRIAN , [facility] Via (21 sources.) osteoarthritis MD Garza , unspecified Hospital - site [place] (52548) Other acquired Scoliosis, Chronic Active NAPOLEON [facility] Vi a deformities (7 unspecified MD Kayla GALLEGOS sources.) Hospital - [place] (39037) Septicemia Sepsis, 12-01-2019 - Episodic Active WILL AMADEO , [facility] Via (except in unspecified MD Garza labor) (1 organism Hospital - source.) [place] (02939) Spondylosis; Spondylosis 11-30-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 Active OSMEL LINDA , [facility] 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 Kayla disc myelopathy or Hospital - disorders; radiculopathy, [place] other back lumbosacral (62495) problems (5 region sources.) Translations: [ SPONDYLOSIS W/O MYELOPATHY OR RADICULOPA, OTHER INTERVERTEBRAL DISC DISPLACEMENT, ] Other nervous Tremor, 12-01-2019 - Episodic Active CARLA SNO [place] Not Available system unspecified (92224) disorders (10 sources.) Cardiac Unspecified 11-18-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 Active WILL CHILDS [facility] Via dysrhythmias atrial MD Garza (21 sources.) fibrillation Hospital - Translations: [place] [ PAROXYSMAL (06939) ATRIAL FIBRILLATION] Urinary tract Urinary tract 12-01-2019 - Episodic Active FLORENCIA WILLIE , Not Available infections (6 infection, DO (11487) sources.) site not specified Past or Other Problems Problem Normalized Date Last Normalized Normalized Provider Fa cility Classification Problem(s) Recorded Problem Problem Sta tus Duration Residual Acquired Episodic Completed GILBERTO VAIBHAV , DO [facility] Via codes; absence of Kayla unclassified both cervix Hospital - (5 sources.) and uterus [place] () Residual Acquired Episodic Completed GILBERTO VAIBHAV , DO [facility] Via codes; absence of Kayla unclassified other organs Hospital - (5 sources.) [place] () Allergic Allergy status Episodic Completed GILBERTO VAIBHAV , DO [facility] Via reactions (5 to Kayla sources.) sulfonamides Hospital - status [place] () External cause Bathroom of no information no information GILBERTO R RUTHY , DO [facility] Via codes: Place unspecified Kayla of occurrence non-[facility] - (3 sources.) nal (private) [place] residence () single-family (private) house as the place of occurrence of the external cause External cause Bathroom of Episodic Completed GILBERTO VAIBHAV , DO [facility] codes[facility] n[facility] (private) [place] residence () single-family (private) house as the place of occurrence of the external cause Other nervous Dick's palsy Episodic Completed DANIEL DONNELLY Via system MD [facility]za disorders (7 Hospital - sources.) [place] () External cause Fall on same no information no information GILBERTO VAIBHAV , DO [facility] Via codes: Fall (3 level from Kayla sources.) slipping, Hospital - tripping and [place] stumbling (88433) without subsequent striking against object, initial encounter External cause Fall on same Episodic Completed GILBERTO VAIBHAV , DO [facility] Via codes: Fall (2 level from Kayla sources.) slipping, Hospital - tripping and [place] stumbling (75582) without subsequent striking against object, initial encounter Fluid and Hypokalemia Episodic Completed DANIEL DONNELLY V ia electrolyte MD Garza disorders (7 Hospital - sources.) [place] () Other showcase maker Episodic Completed GILBERTO VAIBHAV , DO [facility] Via aftercare (12 (current) use Kayla sources.) of aspirin [facility] () Fracture of Unspecified Episodic Completed GILBERTO VAIBHAV , DO [facility] Via upper limb (5 fracture of Kayla sources.) shaft of Hospital - humerus, right [place] arm, initial () encounter for closed fracture Other injuries Unspecified Episodic Completed GILBERTO ESPOSITO , DO [facility] Via and conditions injury of [facility] due to right shoulder Hospital - external and upper arm, [place] causes (5 initial (07705) sources.) encounter Other Wedge Episodic Completed OSMEL LINDA , [facility] Via fractures (1 compression DC Kayla source.) fracture of [facility] - unspecified [place] lumbar (16279) vertebra, initial encounter for closed fracture Procedures Procedure Normalized Procedure Procedure Result Performer Facility Date 01-21-2019 FLUOROSCOPY OF no information no name [facility] Via Kayla ABDOMINAL AORTA USING [facility] ([id number]) 07-05-2019 FLUOROSCOPY OF LEFT no information no name [facility] Via Kayla HEART USING [facility] (58648) 01-21-2019 FLUOROSCOPY OF LEFT no information no name [facility] Via Kayla HEART USING [facility] (16666) 07-05-2019 FLUOROSCOPY OF MULT no information no name [facility] Via Kayla COR ART USING [facility] (83554) 01-21-2019 FLUOROSCOPY OF MULT no information no name [facility] Via Kayla COR ART USING [facility] ([id number]) 07-05-2019 FLUOROSCOPY OF no information no name [facility] Via Kayla THORACIC AORTA USING [facility] ([id number]) 07-05-2019 MEASURE OF CARDIAC no information no name [facility] Via Kayla SAMPL PRESSURE, [facility] ([id number]) 01-21-2019 MEASURE OF CARDIAC no information no name [facility] Via Akyla SAMPL PRESSURE, [facility] ([id number]) Immunizations No Information Results Test Name Value Interpretation Reference Range Date Time Fa cility (Normalized) (Normalized) (Medline Reference) laboratory on 2019-12-01 Cholesterol 103 mg/dL (no code) 180 - 200 mg/dL 12-01-2019 PEND ING LOCATION [Mass/Vol] 00:10-0400 [facility] (34557) Cholesterol in 49 mg/dL (NEG) 12-01-2019 PENDING LOC ATION HDL [Mass/Vol] 00:10-0400 [facility] (98867) Cholesterol in 39 mg/dL (NEG) 0 - 100 mg/dL 12-01-2019 PEN DING LOCATION LDL [Mass/Vol] 00:10-0400 [facility] (57408) Cholesterol in 11 mg/dL (NEG) 12-01-2019 PENDING LOC ATION VLDL [Mass/Vol] 00:10-0400 [facility] (61865) Triglyceride 53 mg/dL (NEG) 0 - 150 mg/dL 12-01-2019 PENDI NG LOCATION [Mass/Vol] 00:10-0400 [facility] ([id number]) not yet categorized on 2019-11-30 COLONY COUNT >100,000/ML (no code) 11-30-2019 PENDING LOCAT ION 00:38-0400 [facility] ([id number]) RAPID ID [id number] REPORTED BY (no code) 11-30-2019 PENDING LO CATION VCP 11/30 07:15 00:38-0400 [facility] ([id number]) laboratory on 2019-11-30 Bacteria [id number] (no code) 11-30-2019 PENDING LOCATI ON identified Cx 00:38-0400 [facility] (31835) Nom (U) Bacteria [id number] (no code) 11-30-2019 PENDING LOCATI ON identified Cx 00:38-0400 [facility] ([id number]) Nom (U) Bacteria LM Ql LARGE (A) 11-30-2019 PENDING LOC ATION (Urine sed) 00:38-0400 [facility] (78794) Bilirubin Ql (U) Negative (no code) 11-30-2019 PENDING L OCATION 00:38-0400 [facility] (72697) Casts LM Ql NONE (no code) 11-30-2019 PENDING LOCATI ON (Urine sed) 00:38-0400 [facility] (62480) Clarity (U) SL CLOUDY (no code) 11-30-2019 PENDING LOCATI ON 00:38-0400 [facility] (80618) Color (U) YELLOW (no code) 11-30-2019 PENDING LOCATI ON 00:38-0400 [facility] ([id number]) Crystals LM Ql NONE (no code) 11-30-2019 PENDING LOC ATION (Urine sed) 00:38-0400 [facility] ([id number]) Epithelial 2-5 (no code) 11-30-2019 PENDING LOCATI ON cells.squamous 00:38-0400 [facility] (31200) LM Ql (Urine sed) Glucose Auto Negative (no code) 11-30-2019 PENDING LOCAT ION test strip Ql 00:38-0400 [facility] ([id number]) (U) Ketones Auto Negative (no code) 11-30-2019 PENDING LOCAT ION test strip Ql 00:38-0400 [facility] ([id number]) (U) Leukocyte 2+ (A) 11-30-2019 PENDING LOCATI ON esterase Test 00:38-0400 [facility] ([id number]) strip Ql (U) Mucus Ql (Urine MODERATE (A) 11-30-2019 PENDING LO CATION sed) 00:38-0400 [facility] (20660) Nitrite Ql (U) Positive (A) 11-30-2019 PENDING LOC ATION 00:38-0400 [facility] (90450) pH (U) 6.0 [pH] (no code) 4.6 - 8 [pH] 11-30-2019 PENDING L OCATION 00:38-0400 [facility] (08581) Protein Ql (U) 1+ (A) 11-30-2019 PENDING LOC ATION 00:38-0400 [facility] (65687) RBC LM.HPF no information (A) 11-30-2019 PENDING LOC ATION (Urine sed) 00:38-0400 [facility] (87706) [#/Area] RBC Ql (U) 2+ (A) 11-30-2019 PENDING LOCATI ON 00:38-0400 [facility] (33684) Specific gravity 1.025 (A) 11-30-2019 PENDING L OCATION (U) [Rel 00:38-0400 [facility] (12129) density] Urobilinogen (U) 0.2 mg/dL (no code) 11-30-2019 PENDING L OCATION [Mass/Vol] 00:38-0400 [facility] (37452) WBC LM.HPF no information (A) 11-30-2019 PENDING LOC ATION (Urine sed) 00:38-0400 [facility] ([id number]) [#/Area] not yet categorized on 2019-11-29 FLU RESULT Negative (no code) 11-29-2019 PENDING LOCATI ON 21:38-0400 [facility] ([id number]) PROCALCITONIN 0.35 (H) 11-29-2019 PENDING LOCA TION (PCT) 21:30-0400 [facility] ([id number]) laboratory on 2019-11-29 Albumin 3.7 g/dL (NEG) 3.4 - 5.4 g/dL 11-29-2019 PENDING LOCATION [Mass/Vol] 21:30 [facility] ([id number]) ALP [Catalytic 72 U/L (NEG) 44 - 147 U/L 11-29-2019 PEND ING LOCATION activity/Vol] 21:30-399 [facility] ([id number]) ALT [Catalytic 8 U/L (NEG) 4 - 40 U/L 11-29-2019 PENDIN G LOCATION activity/Vol] 21:30-399 [facility] () Anion gap 11 mmol/L (NEG) 3 - 11 mmol/L 11-29-2019 PENDING LOCATION [Moles/Vol] 21:30 [facility] () aPTT Coag (PPP) 32 s (NEG) 25 - 35 s 11-29-2019 PENDIN G LOCATION [Time] 21:30 [facility] () AST [Catalytic 13 U/L (NEG) 10 - 34 U/L 11-29-2019 PENDI NG LOCATION activity/Vol] 21:30 [facility] () Bacteria NG (no code) 11-29-2019 PENDING LOCATI ON identified Cx 21: [facility] () Nom (Bld) Band form 2 % (no code) 0 - 3 % 11-29-2019 PENDING LOCA TION neutrophils/100 21:30 [facility] ([id number]) WBC (Bld) Basophils (Bld) 0.0 10*3/uL (NEG) 0 - 0.3 10*3/uL 11-29-2019 PENDING LOCATION [#/Vol] 21:30 [facility] () Basophils/100 0 % (NEG) 0.5 - 1 % 11-29-2019 PENDING LOCATION WBC (Bld) 21:30 [facility] (04680) Bilirubin 0.6 mg/dL (NEG) 0.1 - 1.2 mg/dL 11-29-2019 PENDIN G LOCATION [Mass/Vol] 21:30-399 [facility] (80894) Calcium 8.6 mg/dL (NEG) 8.5 - 10.2 mg/dL 11-29-2019 PENDI NG LOCATION [Mass/Vol] 21:30 [facility] ([id number]) Calcium 8.8 mg/dL (NEG) 8.5 - 10.2 mg/dL 11-29-2019 PENDI NG LOCATION [Mass/Vol] 21:30-0400 [facility] (76518) Chloride 106 mmol/L (NEG) 95 - 106 mmol/L 11-29-2019 PENDI NG LOCATION [Moles/Vol] 21:30-0400 [facility] ([id number]) CO2 [Moles/Vol] 24 mmol/L (NEG) 23 - 29 mmol/L 11-29-2019 P ENDING LOCATION 21:30-0400 [facility] (85503) Coronavirus Ab Negative (no code) 11-29-2019 PENDING LOC ATION Qn (S) 21:38-0400 [facility] ([id number]) Creatinine 0.85 mg/dL (NEG) 11-29-2019 PENDING LOCATI ON [Mass/Vol] 21:30-0400 [facility] (16796) Creatinine and > (no code) 11-29-2019 PENDING LOC ATION Glomerular 21:30-0400 [facility] (24652) filtration rate.predicted panel - Serum, Plasma or Blood CRP [Mass/Vol] 4.28 (H) 11-29-2019 PENDING LOC ATION 21:30-0400 [facility] ([id number]) Eosinophils 0.1 10*3/uL (NEG) 0.05 - 0.5 11-29-2019 PENDING LOCATION (Bld) [#/Vol] 10*3/uL 21:30-0400 [facility] ([id number]) Eosinophils/100 1 % (NEG) 1 - 4 % 11-29-2019 PENDIN G LOCATION WBC (Bld) 21:30-0400 [facility] (14839) Erythrocyte 16.1 % (H) 11.6 - 14.6 % 11-29-2019 PENDIN G LOCATION distribution 21:30-0400 [facility] (73385) width (RBC) [Ratio] Fibrin D-dimer 0.37 (NEG) 11-29-2019 PENDING LOC ATION FEU (PPP) 21:30-0400 [facility] ([id number]) [Mass/Vol] Glucose 105 mg/dL (NEG) 60 - 125 mg/dL 11-29-2019 PENDING LOCATION [Mass/Vol] 21:30-0400 [facility] ([id number]) Hematocrit (Bld) 42 % (NEG) 36.1 - 50.3 % 11-29-2019 P ENDING LOCATION [Volume 21:30-0400 [facility] ([id number]) fraction] Hemoglobin (Bld) 13.2 g/dL (NEG) 12.1 - 17.2 g/dL 11-29-2019 PENDING LOCATION [Mass/Vol] 21:30-0400 [facility] ([id number]) INR Coag 1.2 (NEG) 11-29-2019 PENDING LOCATI ON (Platelet poor 21:30-0400 [facility] (97945) plasma or blood) [Relative time] Lactate 1.45 mmol/L (NEG) 0.5 - 2.2 mmol/L 11-29-2019 PEN DING LOCATION [Moles/Vol] 21:30-0400 [facility] (77476) Lymphocytes 0.5 10*3/uL (L) 0.9 - 2.9 11-29-2019 PENDING LOCATION (Bld) [#/Vol] 10*3/uL 21:30-0400 [facility] ([id number]) Lymphocytes/100 4 % (L) 20 - 40 % 11-29-2019 PENDIN G LOCATION WBC (Bld) 21:30-0400 [facility] (87167) Lymphocytes/100 5 % (no code) 20 - 40 % 11-29-2019 PENDIN G LOCATION WBC (Bld) 21:30-0400 [facility] (49161) Magnesium 1.9 mg/dL (NEG) 1.7 - 2.2 mg/dL 11-29-2019 PENDIN G LOCATION [Mass/Vol] 21:30-0400 [facility] (65682) MCH (RBC) 28 pg (NEG) 27 - 31 pg 11-29-2019 PENDING LOC ATION [Entitic mass] 21:30-0400 [facility] ([id number]) MCHC (RBC) 32 g/dL (NEG) 32 - 36 g/dL 11-29-2019 PENDING LOCATION [Mass/Vol] 21:30-0400 [facility] (59805) MCV (RBC) 89 (NEG) 11-29-2019 PENDING LOCATI ON [Entitic vol] 21:30-0400 [facility] ([id number]) Monocytes (Bld) 0.9 10*3/uL (NEG) 0.3 - 0.9 11-29-2019 PEND ING LOCATION [#/Vol] 10*3/uL 21:30-0400 [facility] ([id number]) Monocytes/100 7 % (NEG) 2 - 8 % 11-29-2019 PENDING LOCATION WBC (Bld) 21:30-0400 [facility] (86990) Monocytes/100 4 % (no code) 2 - 8 % 11-29-2019 PENDING LOCATION WBC (Bld) 21:30-0400 [facility] ([id number]) Myoglobin 75.3 ng/mL (NEG) 11-29-2019 PENDING LOCATI ON [Mass/Vol] 21:30-0400 [facility] (28555) Natriuretic 419.8 pg/mL (H) 0 - 100 pg/mL 11-29-2019 PEND ING LOCATION peptide B (Bld) 21:30-0400 [facility] ([id number]) [Mass/Vol] Neutrophils 11.8 10*3/uL (H) 1.7 - 7 10*3/uL 11-29-2019 P ENDING LOCATION (Bld) [#/Vol] 21:30-0400 [facility] (53876) Neutrophils/100 88 % (H) 40 - 60 % 11-29-2019 PENDIN G LOCATION WBC (Bld) 21:30-0400 [facility] ([id number]) Platelet mean 10.4 (NEG) 11-29-2019 PENDING LOCA TION volume (Bld) 21:30-0400 [facility] ([id number]) [Entitic vol] Platelets (Bld) 210 10*3/uL (NEG) 150 - 450 11-29-2019 PEND ING LOCATION [#/Vol] 10*3/uL 21:30-0400 [facility] ([id number]) Potassium 3.7 mmol/L (NEG) 3.7 - 5.2 mmol/L 11-29-2019 PEND ING LOCATION [Moles/Vol] 21:30-0400 [facility] (71110) Protein 6.5 g/dL (NEG) 6.4 - 8.3 g/dL 11-29-2019 PENDING LOCATION [Mass/Vol] 21:30-0400 [facility] (59351) PT Coag (PPP) 15.9 s (H) 9.4 - 12.5 s 11-29-2019 PENDI NG LOCATION [Time] 21:30-0400 [facility] ([id number]) RBC (Bld) 4.69 10*6/uL (NEG) 4.2 - 6.1 11-29-2019 PENDING L OCATION [#/Vol] 10*6/uL 21: [facility] (45033) RBC morphology NORMAL (no code) 11-29-2019 PENDING LOC ATION finding Nom 21: [facility] () (Bld) Segmented 89 % (no code) 35 - 80 % 11-29-2019 PENDING LOCA TION neutrophils/100 21: [facility] (94103) WBC (Bld) Sodium 141 mmol/L (NEG) 135 - 145 mmol/L 11-29-2019 PEND ING LOCATION [Moles/Vol] 21: [facility] (64346) Troponin ng/mL (NEG) 0 - 0.4 ng/mL 11-29-2019 PENDING LOCATION I.cardiac 21: [facility] () [Mass/Vol] Urea nitrogen 22 mg/dL (H) 7 - 20 mg/dL 11-29-2019 PENDI NG LOCATION [Mass/Vol] : [facility] (36209) Urea 26 mg/mg (no code) 6 - 22 mg/mg 11-29-2019 PENDING L OCATION nitrogen/Creatin 21: [facility] (04201) ine [Mass ratio] WBC (Bld) 13.3 10*3/uL (H) 3.5 - 10.5 11-29-2019 PENDING LOCATION [#/Vol] 10*3/uL 21: [facility] () not yet categorized on 2019-11-17 no information NAME: MJ KRAMER (no code) PENDING LOCAT ION ~MED REC#: [facility] ([id number]) [id number] ~ ~PHYSICIAN: ESTRELLA GRECO MD ~Subjective ~Date [...] g/dL 11-16-2019 PENDING LOCATION [Mass/Vol] 03:40-0400 [facility] ([id number]) ALP [Catalytic 73 U/L (NEG) 44 - 147 U/L 11-16-2019 PEND ING LOCATION activity/Vol] 03:40-0400 [facility] ([id number]) ALT [Catalytic U/L (NEG) 4 - 40 U/L 11-16-2019 PENDIN G LOCATION activity/Vol] 03:40-0400 [facility] (03682) Anion gap 10 mmol/L (NEG) 3 - 11 mmol/L 11-16-2019 PENDING LOCATION [Moles/Vol] 03:40-0400 [facility] (94160) Anion gap 6 mmol/L (NEG) 3 - 11 mmol/L 11-16-2019 PENDING LOCATION [Moles/Vol] 22:45-0400 [facility] (56642) aPTT Coag (PPP) 29 s (NEG) 25 - 35 s 11-16-2019 [facility] LOCATION [Time] 03:40-0400 [facility] ([id number]) AST [Catalytic 19 U/L (NEG) 10 - 34 U/L 11-16-2019 [facility] LOCATION activity/Vol] 03:40-0400 [facility] ([id number]) Basophils (Bld) 0.0 10*3/uL (NEG) 0 - 0.3 10*3/uL 11-16-2019 PENDING LOCATION [#/Vol] 03:40-0400 [facility] ([id number]) Basophils/100 0 % (NEG) 0.5 - 1 % 11-16-2019 PENDING LOCATION WBC (Bld) 03:40-0400 [facility] ([id number]) Bilirubin 0.4 mg/dL (NEG) 0.1 - 1.2 mg/dL 11-16-2019 [facility] LOCATION [Mass/Vol] 03:40-0400 [facility] ([id number]) Calcium 9.1 mg/dL (NEG) 8.5 - 10.2 mg/dL 11-16-2019 [facility] LOCATION [Mass/Vol] 03:40-0400 [facility] (55127) Calcium 8.2 mg/dL (L) 8.5 - 10.2 mg/dL 11-16-2019 [facility] LOCATION [Mass/Vol] 22:45-0400 [facility] (81243) Chloride 106 mmol/L (NEG) 95 - 106 mmol/L 11-16-2019 [facility] LOCATION [Moles/Vol] 03:40-0400 [facility] (13852) Chloride 112 mmol/L (H) 95 - 106 mmol/L 11-16-2019 [facility] LOCATION [Moles/Vol] 22:45-0400 [facility] (66111) Cholesterol 120 mg/dL (no code) 180 - 200 mg/dL 11-16-2019 PEND [facility] LOCATION [Mass/Vol] 22:45-0400 [facility] (21706) Cholesterol in 51 mg/dL (NEG) 11-16-2019 PENDING LOC ATION HDL [Mass/Vol] 22:45-0400 [facility] (68594) Cholesterol in 57 mg/dL (NEG) 0 - 100 mg/dL 11-16-2019 [facility] LOCATION LDL [Mass/Vol] 22:45-0400 [facility] (62308) Cholesterol in 13 mg/dL (NEG) 11-16-2019 PENDING LOC ATION VLDL [Mass/Vol] 22:45-0400 [facility] (64072) CO2 [Moles/Vol] 26 mmol/L (NEG) 23 - 29 mmol/L 11-16-2019 P ENDING LOCATION 03:40-0400 [facility] ([id number]) CO2 [Moles/Vol] 27 mmol/L (NEG) 23 - 29 mmol/L 11-16-2019 P ENDING LOCATION 22:45-0400 [facility] (14874) Creatinine 0.78 mg/dL (NEG) 11-16-2019 PENDING LOCATI ON [Mass/Vol] 03:40-0400 [facility] (92605) Creatinine 0.66 mg/dL (NEG) 11-16-2019 PENDING LOCATI ON [Mass/Vol] 22:45-0400 [facility] ([id number]) Creatinine and > (no code) 11-16-2019 PENDING LOC ATION Glomerular 03:40-0400 [facility] ([id number]) filtration rate.predicted panel - Serum, Plasma or Blood Creatinine and > (no code) 11-16-2019 PENDING LOC ATION Glomerular 22:45-0400 [facility] ([id number]) filtration rate.predicted panel - Serum, Plasma or Blood Eosinophils 0.4 10*3/uL (H) 0.05 - 0.5 11-16-2019 PENDING LOCATION (Bld) [#/Vol] 10*3/uL 03:40-0400 [facility] ([id number]) Eosinophils/100 5 % (NEG) 1 - 4 % 11-16-2019 PENDIN G LOCATION WBC (Bld) 03:40-0400 [facility] ([id number]) Erythrocyte 15.9 % (H) 11.6 - 14.6 % 11-16-2019 [facility] G LOCATION distribution 03:40-0400 [facility] (21042) width (RBC) [Ratio] Erythrocyte 16.0 % (H) 11.6 - 14.6 % 11-16-2019 [facility] G LOCATION distribution 22:45-0400 [facility] (31377) width (RBC) [Ratio] Glucose 97 mg/dL (NEG) 60 - 125 mg/dL 11-16-2019 PENDING LOCATION [Mass/Vol] 03:40-0400 [facility] (80877) Glucose 99 mg/dL (NEG) 60 - 125 mg/dL 11-16-2019 PENDING LOCATION [Mass/Vol] 22:45-0400 [facility] (63086) Hematocrit (Bld) 46 % (NEG) 36.1 - 50.3 % 11-16-2019 P ENDING LOCATION [Volume 03:40-0400 [facility] (68589) fraction] Hematocrit (Bld) 38 % (NEG) 36.1 - 50.3 % 11-16-2019 P ENDING LOCATION [Volume 22:45-0400 [facility] (00556) fraction] Hemoglobin (Bld) 14.2 g/dL (NEG) 12.1 - 17.2 g/dL 11-16-2019 PENDING LOCATION [Mass/Vol] 03:40-0400 [facility] (84297) Hemoglobin (Bld) 11.6 g/dL (NEG) 12.1 - 17.2 g/dL 11-16-2019 PENDING LOCATION [Mass/Vol] 22:45-0400 [facility] (16566) INR Coag 1.0 (NEG) 11-16-2019 PENDING LOCATI ON (Platelet poor 03:40-0400 [facility] (62958) plasma or blood) [Relative time] Lymphocytes 2.2 10*3/uL (NEG) 0.9 - 2.9 11-16-2019 PENDING LOCATION (Bld) [#/Vol] 10*3/uL 03:40-0400 [facility] (80905) Lymphocytes/100 32 % (NEG) 20 - 40 % 11-16-2019 PENDIN G LOCATION WBC (Bld) 03:40-0400 [facility] (18262) Magnesium 2.1 mg/dL (NEG) 1.7 - 2.2 mg/dL 11-16-2019 PENDIN G LOCATION [Mass/Vol] 03:40-0400 [facility] (35289) Magnesium 1.7 mg/dL (NEG) 1.7 - 2.2 mg/dL 11-16-2019 PENDIN G LOCATION [Mass/Vol] 22:45-0400 [facility] (87296) MCH (RBC) 28 pg (NEG) 27 - 31 pg 11-16-2019 PENDING LOC ATION [Entitic mass] 03:40-0400 [facility] (78669) MCH (RBC) 27 pg (NEG) 27 - 31 pg 11-16-2019 PENDING LOC ATION [Entitic mass] 22:45-0400 [facility] (32642) MCHC (RBC) 31 g/dL (L) 32 - 36 g/dL 11-16-2019 PENDING LOCATION [Mass/Vol] 03:40-0400 [facility] (59348) MCHC (RBC) 30 g/dL (L) 32 - 36 g/dL 11-16-2019 PENDING LOCATION [Mass/Vol] 22:45-0400 [facility] (88456) MCV (RBC) 89 (NEG) 11-16-2019 PENDING LOCATI ON [Entitic vol] 03:40-0400 [facility] (80181) MCV (RBC) 90 (NEG) 11-16-2019 PENDING LOCATI ON [Entitic vol] 22:45-0400 [facility] (94301) Monocytes (Bld) 0.7 10*3/uL (NEG) 0.3 - 0.9 11-16-2019 PEND ING LOCATION [#/Vol] 10*3/uL 03:40-0400 [facility] (09010) Monocytes/100 10 % (NEG) 2 - 8 % 11-16-2019 PENDING LOCATION WBC (Bld) 03:40-0400 [facility] (19606) MRSA isol Org Negative (no code) 11-16-2019 PENDING LOCA TION specific cx Ql 06:13-0400 [facility] (91501) (Unsp spec) Myoglobin 58.8 ng/mL (NEG) 11-16-2019 PENDING LOCATI ON [Mass/Vol] 03:40-0400 [facility] (86174) Neutrophils 3.6 10*3/uL (NEG) 1.7 - 7 10*3/uL 11-16-2019 PE NDING LOCATION (Bld) [#/Vol] 03:40-0400 [facility] (27408) Neutrophils/100 52 % (NEG) 40 - 60 % 11-16-2019 PENDIN G LOCATION WBC (Bld) 03:40-0400 [facility] (52806) Phosphate 3.0 mg/dL (NEG) 2.4 - 4.1 mg/dL 11-16-2019 PENDIN G LOCATION [Mass/Vol] 22:45-0400 [facility] (42935) Platelet mean 10.5 (H) 11-16-2019 PENDING LOCA TION volume (Bld) 03:40-0400 [facility] (83696) [Entitic vol] Platelet mean 10.4 (NEG) 11-16-2019 PENDING LOCA TION volume (Bld) 22:45-0400 [facility] (07562) [Entitic vol] Platelets (Bld) 270 10*3/uL (NEG) 150 - 450 11-16-2019 PEND ING LOCATION [#/Vol] 10*3/uL 03:40-0400 [facility] (35752) Platelets (Bld) 213 10*3/uL (NEG) 150 - 450 11-16-2019 PEND ING LOCATION [#/Vol] 10*3/uL 22:45-0400 [facility] (54592) Potassium 4.0 mmol/L (NEG) 3.7 - 5.2 mmol/L 11-16-2019 PEND ING LOCATION [Moles/Vol] 03:40-0400 [facility] (25159) Potassium 3.6 mmol/L (NEG) 3.7 - 5.2 mmol/L 11-16-2019 PEND ING LOCATION [Moles/Vol] 22:45-0400 [facility] (72400) Protein 7.0 g/dL (NEG) 6.4 - 8.3 g/dL 11-16-2019 PENDING LOCATION [Mass/Vol] 03:40-0400 [facility] (26181) PT Coag (PPP) 13.8 s (NEG) 9.4 - 12.5 s 11-16-2019 PENDI NG LOCATION [Time] 03:40-0400 [facility] (65871) RBC (Bld) 5.12 10*6/uL (NEG) 4.2 - 6.1 11-16-2019 PENDING L OCATION [#/Vol] 10*6/uL 03:40-0400 [facility] (39978) RBC (Bld) 4.24 10*6/uL (L) 4.2 - 6.1 11-16-2019 PENDING L OCATION [#/Vol] 10*6/uL 22:45-0400 [facility] (71436) Sodium 142 mmol/L (NEG) 135 - 145 mmol/L 11-16-2019 PEND ING LOCATION [Moles/Vol] 03:40-0400 [facility] (34044) Sodium 145 mmol/L (NEG) 135 - 145 mmol/L 11-16-2019 PEND ING LOCATION [Moles/Vol] 22:45-0400 [facility] (15979) Triglyceride 64 mg/dL (NEG) 0 - 150 mg/dL 11-16-2019 PENDI NG LOCATION [Mass/Vol] 22:45-0400 [facility] (13080) Troponin ng/mL (NEG) 0 - 0.4 ng/mL 11-16-2019 PENDING LOCATION I.cardiac 03:40-0400 [facility] (62067) [Mass/Vol] Urea nitrogen 22 mg/dL (H) 7 - 20 mg/dL 11-16-2019 PENDI NG LOCATION [Mass/Vol] 03:40-0400 [facility] (00332) Urea nitrogen 12 mg/dL (NEG) 7 - 20 mg/dL 11-16-2019 PENDI NG LOCATION [Mass/Vol] 22:45-0400 [facility] (63366) Urea 28 mg/mg (no code) 6 - 22 mg/mg 11-16-2019 PENDING L OCATION nitrogen/Creatin 03:40-0400 [facility] (43642) ine [Mass ratio] Urea 18 mg/mg (no code) 6 - 22 mg/mg 11-16-2019 PENDING L OCATION nitrogen/Creatin 22:45-0400 [facility] (61944) ine [Mass ratio] WBC (Bld) 6.9 10*3/uL (NEG) 3.5 - 10.5 11-16-2019 PENDING L OCATION [#/Vol] 10*3/uL 03:40-0400 [facility] (39070) WBC (Bld) 5.9 10*3/uL (NEG) 3.5 - 10.5 11-16-2019 PENDING L OCATION [#/Vol] 10*3/uL 22:45-0400 [facility] (14372) Vital Signs No Information Interventions No Information Plan of Treatment No Information Goals No Information Social History No Information Functional Status No Information Mental Status No Information Encounters Encounter Normalized Encounter Encounter Diagnosis Care Provi jose Organization Date Type 11-29-2019 Emergency department no information [facility] [address] patient visit (no phone) [facility] (no phone) 11-16-2019 Emergency department no information OSMEL MEYER MD [facility] [address] patient visit (no phone) [facility] (no phone) 07-04-2019 Emergency department no [...] no name no organization name patient visit 11-30-2019 Evaluation and no information WILL CHILDS MD (no [facility] [address] - management of phone) [facility] 12-01-2019 inpatient (no phone) 11-16-2019 Evaluation and no information KRISS MORROW MD (no [facility] - management of phone) [facility] 11-17-2019 inpatient (no phone) 07-04-2019 Evaluation and no information NAPOLEON Bell [facility] [address] - management of (no phone) [facility] 07-06-2019 inpatient (no phone) 01-20-2019 Evaluation and no information no name no organ ization name - management of 01-21-2019 inpatient 06-20-2016 Evaluation and no information no name no organ ization name - management of 06-21-2016 inpatient 11-26-2019 Patient encounter no information SHERINE HARTLEY DO (no [facility] [address] procedure phone) [facility] (no phone) 11-16-2019 Patient encounter no information KRISS MORROW MD (no [facility] - procedure phone) [facility] 11-17-2019 (no phone) 07-04-2019 Patient encounter no information no name no or ganization name - procedure 07-06-2019 01-20-2019 Patient encounter no information no name no or ganization name - procedure 01-21-2019 12-13-2018 Patient encounter no information no name no or ganization name procedure 11-26-2018 Patient encounter no information SHREE DELVALLE MD (n o [facility] [address] procedure phone) [facility] (no phone) 10-17-2018 Patient encounter no [...] Medical Equipment No Information Payers No Information Urinalysis complete W Reflex Culture panel (U) 2019-11-30 Note Type Note Facility Urinalysis CULTURE PENDING (L) culture already in progress PENDING complete W LOCATION Reflex [facility] Culture (38773) panel (U) Additional Source Comments This clinical document has been generated using [employer] software that has been certified by the Office of the National Coordinator for Health Information Technology (ONC 15.99.04.3023.Diam.31.00.0.128535) and the National Committee for Mechanical Integrity Specialist (NCQA, as an eMeasure certified technology). FOR [...] BASED ON T HE PRIMARY CLINICAL RECORDS. [employer] provides no warranty or guara ntee of the accuracy or completeness of information in this document.The followi ng information is based on time limited clinical information
[2019-12-14 21:18] LABS: TOTAL PROTEIN 6.6 GM/DL (6.4-8.2)
--- OUTSIDE RECORDS SUMMARY | 2019-12-14 21:18 | XMS REPORT | Continuity of Care Document ---
Author Organization Unknown Address Unknown Phone Unavailable Allergies Active Description Code Type Severity Reaction Onset Reported/Identified Relationship to Patient Clinical Status Yes Sulfa (Sulfonamide Antibiotics) O90116 0491 Drug Allergy Unknown N/A 020 Yes Sulfa (Sulfonamide Antibiotics) J11176 0491 Drug Allergy Unknown hives 020 Medications [...] MAMMOGRAM FOR MALIGNANT NE 05/23/2016 CARLA HIRSCH HOOKING MACHINE OPERATOR Ot R25.1 TREMOR, UNSPECIFIED 05/24/2016 Ot V76.12 [...] MAMMOGRAM FOR MALIGNANT NE 05/24/2016 SNCARLA OH HOOKING MACHINE OPERATOR Ot R25.1 TREMOR, UNSPECIFIED 06/14/2016 SNOOKHERONI R HOOKING MACHINE OPERATOR Ot R25.1 TREMOR, UNSPECIFIED 06/20/2016 SNOOK, CARLA R HOOKING MACHINE OPERATOR Ot R25.1 TREMOR, UNSPECIFIED 06/21/2016 TAPIA DO [...] ALLERGY STATUS TO SULFONAMIDES STATUS 12/14/2018 GILBERTO ESPOSTIO DO, Ot Z90.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 10 ATHSCL HEART DISEASE OF [place] CORONARY 01/21/2019 WILL CHILDS MD Ot I48. 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 10 ATHSCL HEART DISEASE OF [place] CORONARY 11/17/2019 KRISS MORROW MD, Ot I25. [...] 11/17/2019 KRISS MORROW MD Ot Z79. 01 HULL INSPECTOR (CURRENT) USE OF ANTICOAGULANT 11/17/2019 KRISS MORROW MD Ot Z86. 73 PRSNL HX OF TIA (TIA), AND CEREB INFRC W 11/17/2019 KRISS MORROW MD Ot Z87.891 PERSONAL HISTORY OF NICOTINE DEPENDENCE 11/17/2019 KRISS MORROW MD Ot Z96.612 PRESENCE OF LEFT ARTIFICIAL SHOULDER ADAM 11/17/2019 KRISS MORROW MD Ot Z96.653 PRESENCE OF ARTIFICIAL KNEE JOINT, BILAT 12/01/2019 SHERINE HARTLEY DO Ot M47.816 SPONDYLOSIS W/O MYELOPATHY OR RADICULOPA 12/01/2019 SHERINE HARTLEY DO Ot M51.26 OTHER INTERVERTEBRAL DISC DISPLACEMENT, 12/01/2019 WILL CHILDS MD Ot A41. 51 SEPSIS DUE TO ESCHERICHIA COLI [E. COLI] 12/01/2019 WILL CHILDS MD Ot A41. 9 SEPSIS, UNSPECIFIED ORGANISM 12/01/2019 WILL CHILDS MD Ot F41. 9 ANXIETY DISORDER, UNSPECIFIED 12/01/2019 WILL CHILDS MD Ot G20 PARKINSON'S DISEASE 12/01/2019 WILL CHILDS MD Ot I10 ESSENTIAL (PRIMARY) HYPERTENSION 12/01/2019 WILL CHILDS MD Ot I25. 10 ATHSCL HEART DISEASE OF [place] CORONARY 12/01/2019 WILL CHILDS MD Ot I25. 2 OLD MYOCARDIAL INFARCTION 12/01/2019 WILL CHILDS MD Ot I48. 0 PAROXYSMAL ATRIAL FIBRILLATION 12/01/2019 WILL CHILDS MD Ot I48. 91 UNSPECIFIED ATRIAL FIBRILLATION 12/01/2019 WILL CHILDS MD, Ot J30. 2 OTHER SEASONAL ALLERGIC RHINITIS 12/01/2019 WILL CHILDS MD Ot M19. 91 PRIMARY OSTEOARTHRITIS, UNSPECIFIED SITE 12/01/2019 WILL CHILDS MD Ot M54. 9 DORSALGIA, UNSPECIFIED 12/01/2019 WILL CHILDS MD Ot N39. 0 URINARY TRACT INFECTION, SITE NOT SPECIF 12/01/2019 WILL CHILDS MD Ot R00. 1 BRADYCARDIA, UNSPECIFIED 12/01/2019 WILL CHILDS MD Ot R07. 9 CHEST PAIN, UNSPECIFIED 12/01/2019 WILL CHILDS MD Ot R09. 02 HYPOXEMIA 12/01/2019 WILL CHILDS MD Ot R25. 1 TREMOR, UNSPECIFIED 12/01/2019 WILL CHILDS MD Ot Z86. 73 PRSNL HX OF TIA (TIA), AND CEREB INFRC W 12/01/2019 WILL CHILDS MD Ot Z87.891 PERSONAL HISTORY OF NICOTINE DEPENDENCE 12/01/2019 WILL CHILDS MD Ot Z88. 2 ALLERGY STATUS TO SULFONAMIDES STATUS 12/01/2019 WILL CHILDS MD Ot Z96.612 PRESENCE OF LEFT ARTIFICIAL SHOULDER ADAM 12/01/2019 WILL CHILDS MD Ot Z96.653 PRESENCE OF ARTIFICIAL KNEE JOINT, BILAT Procedures Code Description Performed By Per formed On G0008 FLU ADMINISTRATION (MEDICARE ONLY) 04/06/2013 [id number] ME ASURE OF CARDIAC SAMPL PRESSURE, L H 01/21/2019 [id number] FL UOROSCOPY OF MULT COR ART USING L OSM 01/21/2019 [id number] FL UOROSCOPY OF LEFT HEART USING LOW OSMO 01/21/2019 [id number] FL UOROSCOPY OF ABDOMINAL AORTA USING LOW 01/21/2019 [id number] ME ASURE OF CARDIAC SAMPL PRESSURE, L H 07/05/2019 [id number] FL UOROSCOPY OF MULT COR ART USING L OSM 07/05/2019 [id number] FL UOROSCOPY OF LEFT HEART USING LOW OSMO 07/05/2019 [id number] FL UOROSCOPY OF THORACIC AORTA USING LOW [...] culture - 06/20/16 11:45 Bacterial urine culture [id number] NRG COLONY COUNT <10,000 NRG FTX;REPORTABLE SENSITIVITY [...] 105 mmol/L 98-107 Carbon dioxide 25 mmol/L -32 Serum or plasma anion gap determination (moles/volume) [...] mg/dL 0.1-1.0 Serum or plasma alkaline phosphatase ekm surement (enzymatic activity/volume) 73 U/L 40-136 Serum [...] platelet poor plasma (mass/volume) 0.37 ug/mL 0.00-0.49 Bacterial blood culture - 11/30/19 01:30 Bacterial blood culture NG NRG Influenza virus A and B antigen detectio n - 11/30/19 01:38 FLU RESULT NEGATIVE FOR INFLUENZA A AND B ANTIGENS BY IA NRG Coronavirus SARS-CoV-2 SO 2019 - 0 01:38 Coronavirus Ab [Units/volume] in Serum Negative Negative Bacterial blood culture - 11/30/19 01:50 QUANTITY OF GROWTH Isolated NRG Bacterial blood culture [id number] NRG SUSCEPTIBILITY SUSCEPTIBILITY REPORTED 12-04-19,125 3 NRG MRSA SCREEN SEE COMMENT NRG RML SENSITIVITY MAIN LAB - 11/30/19 01:5 0 Gentamicin susceptibility test by minimum inhibitory c oncentration <= NRG Trimethoprim/sulfamethoxazole susceptibi lity test by minimum inhibitoryconcentration <= NRG Levofloxacin susceptibility test by minimum inhibitory concentration <= NRG Ampicillin susceptibility test by minimum inhibitory c oncentration <= NRG Cefazolin susceptibility test by minimum inhibitory co ncentration <= NRG Ceftriaxone susceptibility test by minimum inhibitory concentration <= NRG Piperacillin/tazobactam susceptibility t est by minimum inhibitory concentration <= NRG Ciprofloxacin susceptibility test by minimum inhibitor y concentration <= NRG Meropenem susceptibility test by minimum inhibitory co ncentration <= NRG Amoxicillin and clavulanate potassium susc HIEU <= NRG Imipenem susceptibility test by minimum inhibitory con centration <= NRG Complete urinalysis with reflex to cultu [...] with reflex to culture CULTURE PENDING NRG Bacterial urine culture - 11/30/19 04:38 Bacterial urine culture [id number] NRG COLONY COUNT >100,000/ML NRG SUSCEPTIBILITY SUSCEPTIBILITY REPORTED 12/01 11:50 NRG RAPID ID GNR REPORTED BY VCP 11/30 07:15 NRG ID CONFIRMATION RML REPORTED ID 11/30 12:05 NRG Dirithromycin susceptibility test by dis k diffusion - 11/30/19 04:38 Gentamicin susceptibility test by minimum inhibitory c oncentration <= NRG Trimethoprim/sulfamethoxazole susceptibi lity test by minimum inhibitoryconcentration <= NRG Levofloxacin susceptibility test by minimum inhibitory concentration <= NRG Ampicillin susceptibility test by minimum inhibitory c oncentration <= NRG Cefazolin susceptibility test by minimum inhibitory co ncentration <= NRG Ceftriaxone susceptibility test by minimum inhibitory concentration <= NRG Ciprofloxacin susceptibility test by minimum inhibitor y concentration <= NRG Meropenem susceptibility test by minimum inhibitory co ncentration <= NRG Nitrofurantoin susceptibility test by mi nimum inhibitory concentration <= NRG Amoxicillin and clavulanate potassium susc HIEU <= NRG Lipid 1996 panel - 12/01/19 04:10 Serum or plasma triglyceride measurement (mass/volume) 53 mg/dL <150 Serum or plasma cholesterol measurement (mass/volume) 103 mg/dL < 200 Serum or plasma cholesterol in HDL measurement (mass/v olume) 49 mg/dL 40-60 Cholesterol in LDL [mass/volume] in serum or plasma by direct assay 39 mg/dL 1-129 Serum or plasma cholesterol in VLDL measurement (mass/ volume) 11 mg/dL 5-40 Encounters ACCT No. Visit Date/Time Discharge Status Pt. Type Provider Facility Loc./Unit Complaint [id number] 06/08/2014 09:49:53 ACT Document Registration [id number] 04/06/2013 16:39:00 04/06/2013 23:59: 59 CLS Outpatient TARA FOSTER DO [id number] 11/30/2019 04:45:00 14:30:00 DIS Inpatient AMADEO PINO, WILL Denis [facility] 4TH SEPSIS,HYPOXIA,CP [id number] 11/26/2019 13:38:00 23:59:59 CLS Outpatient SHERINE HARTLEY DO [facility] RAD BACK PAIN [id number] 11/16/2019 09:24:00 09:30:00 DIS Inpatient CRISTHIAN PINO, KRISS Denis [facility] ICU AFIB W RVR [id number] 07/04/2019 12:35:00 13:25:00 DIS Inpatient ROSY PINO, NAPOLEON Denis [facility] 4TH CHEST PAIN,ELEV ATED TROPONIN,HYPERTENSION,HYPOXIA [id number] 01/20/2019 11:42:00 16:40:00 DIS Inpatient AMADEO PINO, WILL Denis [facility] 4TH AFIB W RVR,CP [id number] 12/13/2018 22:30:00 01:59:00 DIS Emergency VAIBHAV GILBERTO BLAKE Vi [facility] ER RT ARM INJURY [id number] 11/26/2018 08:03:00 019 23:59:59 CLS Outpatient SHREE DELVALLE MD [facility] RAD ABN MAMMO [id number] 10/17/2018 11:53:00 23:59:59 CLS Outpatient OSMEL LINDA DC [facility] RAD ACUTE LOW BACK PAIN [id number] 06/19/2018 14:33:00 019 23:59:59 CLS Outpatient SHREE DELVALLE MD [facility] RAD SCREENING [id number] 04/03/2017 10:15:00 017 23:59:59 CLS Preadmit OTHER, UNLISTED [facility] RAD SCREENING [id number] 06/20/2016 14:25:00 017 14:37:00 DIS Inpatient FLORENCIA TAPIA DO, V ia [facility] ICU CVA UTI [id number] 05/22/2016 13:39:00 016 23:59:59 CLS Outpatient CARLA HIRSCH APRN [facility] RAD TREMORS [id number] 07/28/2015 10:50:00 016 23:59:59 CLS Outpatient SHILOH PINO, ROULA Barrera ia [facility] RAD SCREENING [id number] 06/08/2014 09:49:00 014 23:59:59 CLS Outpatient ADAM JON Rohit Barrera ia [facility] RAD SCREENING [id number] 10/02/2013 12:41:00 014 23:59:59 CLS Outpatient [id number] 07/17/2013 11:18:00 014 23:59:59 CLS Outpatient NAPOLEON GALLEGOS MD [facility] RAD SCREENING,KYPHO SEOLOSIS [id number] 05/25/2013 14:26:00 013 23:59:59 CLS Outpatient NAPOLEON GALLEGOS MD [facility] RAD SCREENING [id number] 12/14/2019 19:57:[address] Emergency OSMEL PINON MD [facility] ER WEAKNESS / UNSTEADY [id number] 06/08/2014 09:48:00 Document Registration [id number] 07/09/2012 07:55:00 Document Registration [id number] 05/14/2012 15:02:00 Document Registration [id number] 01/10/2012 10:34:00 Document Registration [id number] 01/09/2012 14:20:00 Document Registration [id number] 09/20/2011 10:45:00 Document Registration [id number] 05/07/2011 08:48:00 Document Registration [id number] 05/05/2010 09:32:00 Document Registration [id number] 05/04/2009 13:33:00 Document Registration [id number] 01/12/2009 13:36:00 Document Registration [id number] 12/20/2008 09:09:00 Document Registration
[2019-12-14 21:20] LABS: BILIRUBIN,TOTAL 0.3 MG/DL (0.1-1.0)
[2019-12-14 21:22] LABS: CREATININE SERUM 0.95 MG/DL (0.60-1.30)
[2019-12-14 21:22] LABS: BACTERIA,URINE TRACE /HPF; HYALINE CASTS, URINE RARE /LPF; WBC,URINE 0-2 /HPF
[2019-12-14] MEDS ORDERED: NS IV 500 ML 500 ML IV ONE (21:30)
--- NOTE | 2019-12-14 21:32 | Diagnostic Imaging Report ---
EXAMINATION: Chest 1 view HISTORY: Weakness COMPARISON: 11/30/2019 FINDINGS: There is a left shoulder arthroplasty. Heart is enlarged. There are small pleural effusions. No pneumothorax. There is mild to moderate edema. IMPRESSION: 1. Mild to moderate edema with enlarged heart and small pleural effusions. Dictated by: Dictated on workstation # [id number]
[2019-12-14] MEDS ORDERED: HOLD METFORMIN - RECEIVED CONTRAST 20 ML VIAL IV SCH (21:45)
[2019-12-14] MEDS ORDERED: NS 100 ML (IVPB) BAG IV ONE (21:45)
[2019-12-14] MEDS ORDERED: IOHEXOL 350 MG/ML 100 ML (OMNIPAQUE 350) VIAL IV ONE (21:45)
[2019-12-14] MEDS ORDERED: FUROSEMIDE 40 MG/4 ML INJ (LASIX) IV STA (23:27)
[2019-12-14] MEDS ORDERED: hydrALAZINE (APESOLINE) 20 MG/ML VIAL IV ONE (23:45)
--- OUTSIDE RECORDS SUMMARY | 2019-12-14 23:59 | XMS REPORT ---
Author Author Protein [facility] [employer] [facility] [place] [facility] Address [address] [address] Care Team Providers Care Product Blending Supervisor Name Role Phone CARLA HIRSCH BIANCA Unavailable [...] Available (22 sources.) (antibiotic) (Antibiotic) MD ROSY ([id number] ) Medications No Information Problems Active Problems Problem Normalized Date Last Normalized Normalized Provider Fa cility Classification Problem(s) Recorded Problem Problem Sta tus Duration Congestive Acute Chronic Active [facility] heart failure; diastolic MD Kayla GALLEGOS nonhypertensiv (congestive) Hospital - e (7 sources.) heart failure [place] (96790) Osteoporosis Age-related Chronic Active N[facility]OLEON [facility] Via (7 sources.) osteoporosis MD Kayla GALLEGOS without Hospital - current [place] pathological (16473) fracture Peripheral and Atherosclerosi Chronic Active WILL CHILDS [facility] Via visceral s of renal MD Garza atherosclerosi artery Hospital - s (8 sources.) Translations: [place] [ (47216) ATHEROSCLEROSI S OF AORTA] 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 Active WILL BRO MAN , [facility] Via atherosclerosi c heart MD Kayla faust and other disease of Hospital - heart disease [place] (32 sources.) coronary (40419) artery without angina pectoris Translations: [ OLD MYOCARDIAL INFARCTION] Acute Cerebral Chronic Active FLORENCIA TAPIA , Not Avai lable cerebrovascula infarction, DO (26730) r disease (5 unspecified sources.) Other bone Disorder of Episodic Active NAPOLEON Not Avail able disease and bone and MD ROSY (89729) musculoskeleta cartilage, l deformities unspecified (1 source.) Spondylosis; Dorsalgia, 11-18-2019 - Episodic Active WILL RED MAN , [facility] Via intervertebral unspecified MD Garza disc Hospital - disorders; [place] other back (27449) problems (21 sources.) Chronic Emphysema, Chronic Active [facility] Via obstructive unspecified MD Kayla GALLEGOS pulmonary Hospital - disease and [place] bronchiectasis (64813) (7 sources.) Other Encounter for 11-06-2019 - Episodic Active ADAM STAUFFER EW Not Available screening for screening (77673) suspected mammogram for conditions malignant (not mental neoplasm of disorders or breast infectious Translations: disease) (13 [ SCRN sources.) MAMMO-HIGH RISK PT, MALIGNANT NEOPL, OTH ABN AND INCONCLUSIVE FINDINGS ON DX ] Essential Essential 11-18-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 Active FLORENCIA TAPIA , Not Available hypertension (primary) DO (00854) (24 sources.) hypertension Other Facial Episodic Active FLORENCIA TAPIA , Not Avai lable connective weakness DO (96321) tissue disease (5 sources.) Anxiety Generalized 11-18-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 Active FLORENCIA TAPIA , Not Available disorders (24 anxiety DO (88253) sources.) disorder Translations: [ ANXIETY DISORDER, UNSPECIFIED] Paralysis (5 Hemiplegia, Chronic Active FLORENCIA TAPIA , No t Available sources.) unspecified DO (63085) affecting left nondominant side Disorders of Hyperlipidemia 11-18-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 Active FLORENCIA TAPIA , Not Available lipid , unspecified DO (03409) metabolism (19 sources.) Hypertension Hypertensive Chronic Active [facility] Vi a with heart disease MD Kayla GALLEGOS complications with heart Hospital - and secondary failure [place] hypertension (22324) (7 sources.) Other Hypotension, 11-18-2019 - Episodic Active KRISS FAL K , [facility] Via circulatory unspecified MD Garza disease (7 Hospital - sources.) [place] (02865) Other lower Hypoxemia 12-01-2019 - Episodic Active WILL ESCOBEDO N , [facility] Via respiratory MD [facility]za disease (1 Hospital - source.) [place] (62683) Other traffic reporter 11-18-2019 - Episodic Active [facility] Via aftercare (14 (current) use MD Kayla GALLEGOS sources.) of Hospital - anticoagulants [place] (89017) Cancer of Malignant Chronic Active ADAM JON Not Avail able breast (1 neoplasm of (32952) source.) breast (female), unspecified Acute Myocardial Chronic Active WILL CHILDS , [facility] Vi a myocardial infarction MD Garza infarction (11 type 2 Hospital - sources.) [place] (96432) 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 Active GENIA N CRISTHIAN , [facility] Via stenosis of stenosis of MD Garza precerebral unspecified Hospital - arteries (7 carotid artery [place] sources.) (00666) Nonspecific Other chest 12-01-2019 - Episodic Active WILL RED MAN , [facility] Via chest pain (4 pain MD Garza sources.) Translations: Hospital - [ CHEST PAIN, [place] UNSPECIFIED] (70805) Other acquired Other forms of Chronic Active OSMEL MADDI , [facility] Via deformities (1 scoliosis, DC Kayla source.) lumbar region [facility] (57182) Other upper Other seasonal 12-01-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 Active WILL AMADEO , [facility] Via respiratory allergic MD Garza disease (15 rhinitis Hospital - sources.) [place] (09257) Parkinson`s Parkinson's 11-18-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 Active WILL RED MAN , [facility] Via disease (14 disease MD Garza sources.) [facility] (70370) Screening and Personal 11-18-2019 - Episodic Active GILBERTOLexus ESPOSITO DO [facility] Via history of history of [facility] mental health nicotine Hospital - and substance dependence [place] abuse codes (76375) (26 sources.) Other Personal 11-18-2019 - Episodic Active GILBERTO VAIBHAV DO [facility] Via circulatory history of Kayla disease (20 transient Hospital - sources.) ischemic [place] attack (TIA), (27705) and cerebral infarction without residual deficits 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-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 Active GILBERTO VAIBHAV , DO [facility] Via 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, Hospital - (26 sources.) bilateral [place] (94312) Other Presence of Chronic Active GILBERTO VAIBHAV , DO [facility] V ia connective left Kayla tissue disease artificial hip Hospital - (5 sources.) joint [place] (64214) 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-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 Active WILLCHAVO CHILDS , [facility] Via connective left MD Garza tissue disease artificial Hospital - (21 sources.) shoulder joint [place] (81576) Other Presence of Chronic Active [facility] Via connective right MD Kayla GALLEGOS tissue disease artificial Hospital - (7 sources.) shoulder joint [place] (89457) Osteoarthritis Primary 11-18-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 Active WILL RED BRIAN , [facility] Via (21 sources.) osteoarthritis MD Garza , unspecified Hospital - site [place] (62454) Other acquired Scoliosis, Chronic Active [facility] Vi a deformities (7 unspecified MD Kayla GALLEGOS sources.) Hospital - [place] (31300) Septicemia Sepsis, 12-01-2019 - Episodic Active WILL AMADEO , [facility] Via (except in unspecified MD Garza labor) (1 organism Hospital - source.) [place] (88232) Spondylosis; Spondylosis 11-30-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 Active OSMEL LINDA , [facility] 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 Kayla disc myelopathy or Hospital - disorders; radiculopathy, [place] other back lumbosacral (72481) problems (5 region sources.) Translations: [ SPONDYLOSIS W/O MYELOPATHY OR RADICULOPA, OTHER INTERVERTEBRAL DISC DISPLACEMENT, ] Other nervous Tremor, 12-01-2019 - Episodic Active CARLA SNO [place] Not Available system unspecified (17203) disorders (10 sources.) Cardiac Unspecified 11-18-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 Active WILL CHILDS [facility] Via dysrhythmias atrial MD Garza (21 sources.) fibrillation Hospital - Translations: [place] [ PAROXYSMAL (71581) ATRIAL FIBRILLATION] Urinary tract Urinary tract 12-01-2019 - Episodic Active FLORENCIA WILLIE , Not Available infections (6 infection, DO (00651) sources.) site not specified Past or Other Problems Problem Normalized Date Last Normalized Normalized Provider Fa cility Classification Problem(s) Recorded Problem Problem Sta tus Duration Residual Acquired Episodic Completed GILBERTO VAIBHAV , DO [facility] Via codes; absence of Kayla unclassified both cervix Hospital - (5 sources.) and uterus [place] () Residual Acquired Episodic Completed GILBERTO VAIBHAV , DO [facility] Via codes; absence of Kayla unclassified other organs Hospital - (5 sources.) [place] () Allergic Allergy status Episodic Completed GILBERTO VAIBHAV , DO [facility] Via reactions (5 to Kayla sources.) sulfonamides Hospital - status [place] () External cause Bathroom of no information no information GILBERTO R RUTHY , DO [facility] Via codes: Place unspecified Kayla of occurrence [facility] - (3 sources.) nal (private) [place] residence () single-family (private) house as the place of occurrence of the external cause External cause Bathroom of Episodic Completed GILBERTO VAIBHAV , DO [facility] codes[facility] [place] [facility] - ([facility] nal (private) [place] residence () single-family (private) house as the place of occurrence of the external cause Other nervous Dick's palsy Episodic Completed DANIEL DONNELLY Via system MD Garza disorders (7 Hospital - sources.) [place] () External cause Fall on same no information no information GILBERTO VAIBHAV , DO [facility] Via codes: Fall (3 level from Kayla sources.) slipping, Hospital - tripping and [place] stumbling (30110) without subsequent striking against object, initial encounter External cause Fall on same Episodic Completed GILBERTO VAIBHAV , DO [facility] Via codes: Fall (2 level from Kayla sources.) slipping, Hospital - tripping and [place] stumbling (79624) without subsequent striking against object, initial encounter Fluid and Hypokalemia Episodic Completed DANIEL DONNELLY V ia electrolyte MD [place] disorders (7 Hospital - sources.) [place] () Other traffic reporter Episodic Completed GILBERTO VAIBHAV , DO [facility] Via aftercare (12 (current) use Kayla sources.) of aspirin [facility] () Fracture of Unspecified Episodic Completed GILBERTO VAIBHAV , DO [facility] Via upper limb (5 fracture of Kayla sources.) shaft of Hospital - humerus, right [place] arm, initial () encounter for closed fracture Other injuries Unspecified Episodic Completed GILBERTO ESPOSITO , DO [facility] Via and conditions injury of [facility] due to right shoulder Hospital - external and upper arm, [place] causes (5 initial (67245) sources.) encounter Other Wedge Episodic Completed OSMEL LINDA , [facility] Via fractures (1 compression DC Kayla source.) fracture of [facility] - unspecified [place] lumbar (76527) vertebra, initial encounter for closed fracture Procedures Procedure Normalized Procedure Procedure Result Performer Facility Date 01-21-2019 FLUOROSCOPY OF no information no name [facility] Via Kayla ABDOMINAL [place]A USING [facility] ([id number]) 07-05-2019 FLUOROSCOPY OF LEFT no information no name [facility] Via Kayla HEART USING [facility] (70529) 01-21-2019 FLUOROSCOPY OF LEFT no information no name [facility] Via Kayla HEART USING [facility] (79657) 07-05-2019 FLUOROSCOPY OF MULT no information no name [facility] Via Kayla COR ART USING [facility] ([id number]) 01-21-2019 FLUOROSCOPY OF MULT no information no name [facility] Via Kayla COR ART USING [facility] ([id number]) 07-05-2019 FLUOROSCOPY OF no information no name [facility] Via Kayla THORACIC AORTA USING [facility] ([id number]) 07-05-2019 MEASURE OF CARDIAC no information no name [facility] Via Kayla SAMPL PRESSURE, [facility] ([id number]) 01-21-2019 MEASURE OF CARDIAC no information no name [facility] Via Kayla SAMPL PRESSURE, [facility] ([id number]) Immunizations No Information Results Test Name Value Interpretation Reference Range Date Time Fa cility (Normalized) (Normalized) (Medline Reference) laboratory on 2019-12-01 Cholesterol 103 mg/dL (no code) 180 - 200 mg/dL 12-01-2019 PEND ING LOCATION [Mass/Vol] 00:10-0400 [facility] (85947) Cholesterol in 49 mg/dL (NEG) 12-01-2019 PENDING LOC ATION HDL [Mass/Vol] 00:10-0400 [facility] (11146) Cholesterol in 39 mg/dL (NEG) 0 - 100 mg/dL 12-01-2019 PEN DING LOCATION LDL [Mass/Vol] 00:10-0400 [facility] (43862) Cholesterol in 11 mg/dL (NEG) 12-01-2019 PENDING LOC ATION VLDL [Mass/Vol] 00:10-0400 [facility] (56088) Triglyceride 53 mg/dL (NEG) 0 - 150 mg/dL 12-01-2019 PENDI NG LOCATION [Mass/Vol] 00:10-0400 [facility] (97186) not yet categorized on 2019-11-30 COLONY COUNT >100,000/ML (no code) 11-30-2019 PENDING LOCAT ION 00:38-0400 [facility] ([id number]) RAPID ID [id number] REPORTED BY (no code) 11-30-2019 PENDING LO CATION VCP 11/30 07:15 00:38-0400 [facility] ([id number]) laboratory on 2019-11-30 Bacteria [id number] (no code) 11-30-2019 PENDING LOCATI ON identified Cx 00:38-0400 [facility] (95343) Nom (U) Bacteria [id number] (no code) 11-30-2019 PENDING LOCATI ON identified Cx 00:38-0400 [facility] (71404) Nom (U) Bacteria LM Ql LARGE (A) 11-30-2019 PENDING LOC ATION (Urine sed) 00:38-0400 [facility] (85906) Bilirubin Ql (U) Negative (no code) 11-30-2019 PENDING L OCATION 00:38-0400 [facility] (37205) Casts LM Ql NONE (no code) 11-30-2019 PENDING LOCATI ON (Urine sed) 00:38-0400 [facility] (16638) Clarity (U) SL CLOUDY (no code) 11-30-2019 PENDING LOCATI ON 00:38-0400 [facility] (92236) Color (U) YELLOW (no code) 11-30-2019 PENDING LOCATI ON 00:38-0400 [facility] (83428) Crystals LM Ql NONE (no code) 11-30-2019 PENDING LOC ATION (Urine sed) 00:38-0400 [facility] (66710) Epithelial 2-5 (no code) 11-30-2019 PENDING LOCATI ON cells.squamous 00:38-0400 [facility] (68717) LM Ql (Urine sed) Glucose Auto Negative (no code) 11-30-2019 PENDING LOCAT ION test strip Ql 00:38-0400 [facility] (00096) (U) Ketones Auto Negative (no code) 11-30-2019 PENDING LOCAT ION test strip Ql 00:38-0400 [facility] (63714) (U) Leukocyte 2+ (A) 11-30-2019 PENDING LOCATI ON esterase Test 00:38-0400 [facility] (88696) strip Ql (U) Mucus Ql (Urine MODERATE (A) 11-30-2019 PENDING LO CATION sed) 00:38-0400 [facility] (38580) Nitrite Ql (U) Positive (A) 11-30-2019 PENDING LOC ATION 00:38-0400 [facility] (64283) pH (U) 6.0 [pH] (no code) 4.6 - 8 [pH] 11-30-2019 PENDING L OCATION 00:38-0400 [facility] (94637) Protein Ql (U) 1+ (A) 11-30-2019 PENDING LOC ATION 00:38-0400 [facility] (35338) RBC LM.HPF no information (A) 11-30-2019 PENDING LOC ATION (Urine sed) 00:38-0400 [facility] (12812) [#/Area] RBC Ql (U) 2+ (A) 11-30-2019 PENDING LOCATI ON 00:38-0400 [facility] ([id number]) Specific gravity 1.025 (A) 11-30-2019 PENDING L OCATION (U) [Rel 00:38-0400 [facility] (20537) density] Urobilinogen (U) 0.2 mg/dL (no code) 11-30-2019 PENDING L OCATION [Mass/Vol] 00:38-0400 [facility] (75415) WBC LM.HPF no information (A) 11-30-2019 PENDING LOC ATION (Urine sed) 00:38-0400 [facility] (29403) [#/Area] not yet categorized on 2019-11-29 FLU RESULT Negative (no code) 11-29-2019 PENDING LOCATI ON 21:38-0400 [facility] ([id number]) PROCALCITONIN 0.35 (H) 11-29-2019 PENDING LOCA TION (PCT) 21:30-0400 [facility] (57872) laboratory on 2019-11-29 Albumin 3.7 g/dL (NEG) 3.4 - 5.4 g/dL 11-29-2019 PENDING LOCATION [Mass/Vol] 21:30 [facility] ([id number]) ALP [Catalytic 72 U/L (NEG) 44 - 147 U/L 11-29-2019 PEND ING LOCATION activity/Vol] 21:30-399 [facility] (70993) ALT [Catalytic 8 U/L (NEG) 4 - [...] 11-29-2019 PENDING LOCA TION neutrophils/100 21:30 [facility] (26531) WBC (Bld) Basophils (Bld) 0.0 10*3/uL (NEG) 0 - 0.3 10*3/uL 11-29-2019 PENDING LOCATION [#/Vol] 21:30 [facility] () Basophils/100 0 % (NEG) 0.5 - 1 % 11-29-2019 PENDING LOCATION WBC (Bld) 21:30 [facility] (44200) Bilirubin 0.6 mg/dL (NEG) 0.1 - 1.2 mg/dL 11-29-2019 PENDIN G LOCATION [Mass/Vol] 21:30-399 [facility] ([id number]) Calcium 8.6 mg/dL (NEG) 8.5 - 10.2 mg/dL 11-29-2019 PENDI NG LOCATION [Mass/Vol] 21:30 [facility] (21305) Calcium 8.8 mg/dL (NEG) 8.5 - 10.2 mg/dL 11-29-2019 PENDI NG LOCATION [Mass/Vol] 21:30-0400 [facility] (06082) Chloride 106 mmol/L (NEG) 95 - 106 mmol/L 11-29-2019 PENDI NG LOCATION [Moles/Vol] 21:30-0400 [facility] (18122) CO2 [Moles/Vol] 24 mmol/L (NEG) 23 - 29 mmol/L 11-29-2019 P ENDING LOCATION 21:30-0400 [facility] (51454) Coronavirus Ab Negative (no code) 11-29-2019 PENDING LOC ATION Qn (S) 21:38-0400 [facility] (00934) Creatinine 0.85 mg/dL (NEG) 11-29-2019 PENDING LOCATI ON [Mass/Vol] 21:30-0400 [facility] (94119) Creatinine and > (no code) 11-29-2019 PENDING LOC ATION Glomerular 21:30-0400 [facility] ([id number]) filtration rate.predicted panel - Serum, Plasma or Blood CRP [Mass/Vol] 4.28 (H) 11-29-2019 PENDING LOC ATION 21:30-0400 [facility] (71153) Eosinophils 0.1 10*3/uL (NEG) 0.05 - 0.5 11-29-2019 PENDING LOCATION (Bld) [#/Vol] 10*3/uL 21:30-0400 [facility] (28454) Eosinophils/100 1 % (NEG) 1 - 4 % 11-29-2019 PENDIN G LOCATION WBC (Bld) 21:30-0400 [facility] (53677) Erythrocyte 16.1 % (H) 11.6 - 14.6 % 11-29-2019 PENDIN G LOCATION distribution 21:30-0400 [facility] (47824) width (RBC) [Ratio] Fibrin D-dimer 0.37 (NEG) 11-29-2019 PENDING LOC ATION FEU (PPP) 21:30-0400 [facility] (29979) [Mass/Vol] Glucose 105 mg/dL (NEG) 60 - 125 mg/dL 11-29-2019 PENDING LOCATION [Mass/Vol] 21:30-0400 [facility] (62142) Hematocrit (Bld) 42 % (NEG) 36.1 - 50.3 % 11-29-2019 P ENDING LOCATION [Volume 21:30-0400 [facility] (06853) fraction] Hemoglobin (Bld) 13.2 g/dL (NEG) 12.1 - 17.2 g/dL 11-29-2019 PENDING LOCATION [Mass/Vol] 21:30-0400 [facility] (96514) INR Coag 1.2 (NEG) 11-29-2019 PENDING LOCATI ON (Platelet poor 21:30-0400 [facility] (20777) plasma or blood) [Relative time] Lactate 1.45 mmol/L (NEG) 0.5 - 2.2 mmol/L 11-29-2019 PEN DING LOCATION [Moles/Vol] 21:30-0400 [facility] (37794) Lymphocytes 0.5 10*3/uL (L) 0.9 - 2.9 11-29-2019 PENDING LOCATION (Bld) [#/Vol] 10*3/uL 21:30-0400 [facility] (12998) Lymphocytes/100 4 % (L) 20 - 40 % 11-29-2019 PENDIN G LOCATION WBC (Bld) 21:30-0400 [facility] (77941) Lymphocytes/100 5 % (no code) 20 - 40 % 11-29-2019 PENDIN G LOCATION WBC (Bld) 21:30-0400 [facility] (86872) Magnesium 1.9 mg/dL (NEG) 1.7 - 2.2 mg/dL 11-29-2019 PENDIN G LOCATION [Mass/Vol] 21:30-0400 [facility] (97936) MCH (RBC) 28 pg (NEG) 27 - 31 pg 11-29-2019 PENDING LOC ATION [Entitic mass] 21:30-0400 [facility] (49972) MCHC (RBC) 32 g/dL (NEG) 32 - 36 g/dL 11-29-2019 PENDING LOCATION [Mass/Vol] 21:30-0400 [facility] (20446) MCV (RBC) 89 (NEG) 11-29-2019 PENDING LOCATI ON [Entitic vol] 21:30-0400 [facility] (02189) Monocytes (Bld) 0.9 10*3/uL (NEG) 0.3 - 0.9 11-29-2019 PEND ING LOCATION [#/Vol] 10*3/uL 21:30-0400 [facility] (83277) Monocytes/100 7 % (NEG) 2 - 8 % 11-29-2019 PENDING LOCATION WBC (Bld) 21:30-0400 [facility] (05713) Monocytes/100 4 % (no code) 2 - 8 % 11-29-2019 PENDING LOCATION WBC (Bld) 21:30-0400 [facility] (75325) Myoglobin 75.3 ng/mL (NEG) 11-29-2019 PENDING LOCATI ON [Mass/Vol] 21:30-0400 [facility] (21995) Natriuretic 419.8 pg/mL (H) 0 - 100 pg/mL 11-29-2019 PEND ING LOCATION peptide B (Bld) 21:30-0400 [facility] (02406) [Mass/Vol] Neutrophils 11.8 10*3/uL (H) 1.7 - 7 10*3/uL 11-29-2019 P ENDING LOCATION (Bld) [#/Vol] 21:30-0400 [facility] (93452) Neutrophils/100 88 % (H) 40 - 60 % 11-29-2019 PENDIN G LOCATION WBC (Bld) 21:30-0400 [facility] (50913) Platelet mean 10.4 (NEG) 11-29-2019 PENDING LOCA TION volume (Bld) 21:30-0400 [facility] ([id number]) [Entitic vol] Platelets (Bld) 210 10*3/uL (NEG) 150 - 450 11-29-2019 PEND ING LOCATION [#/Vol] 10*3/uL 21:30-0400 [facility] (22830) Potassium 3.7 mmol/L (NEG) 3.7 - 5.2 mmol/L 11-29-2019 PEND ING LOCATION [Moles/Vol] 21:30-0400 [facility] (06492) Protein 6.5 g/dL (NEG) 6.4 - 8.3 g/dL 11-29-2019 PENDING LOCATION [Mass/Vol] 21:30-0400 [facility] (08503) PT Coag (PPP) 15.9 s (H) 9.4 - 12.5 s 11-29-2019 PENDI NG LOCATION [Time] 21:30-0400 [facility] (55114) RBC (Bld) 4.69 10*6/uL (NEG) 4.2 - 6.1 11-29-2019 PENDING L OCATION [#/Vol] 10*6/uL 21: [facility] (08544) RBC morphology NORMAL (no code) 11-29-2019 PENDING LOC ATION finding Nom 21: [facility] () (Bld) Segmented 89 % (no code) 35 - 80 % 11-29-2019 PENDING LOCA TION neutrophils/100 21: [facility] (47070) WBC (Bld) Sodium 141 mmol/L (NEG) 135 - 145 mmol/L 11-29-2019 PEND ING LOCATION [Moles/Vol] 21: [facility] (58539) Troponin ng/mL (NEG) 0 - 0.4 ng/mL 11-29-2019 PENDING LOCATION I.cardiac 21: [facility] () [Mass/Vol] Urea nitrogen 22 mg/dL (H) 7 - 20 mg/dL 11-29-2019 PENDI NG LOCATION [Mass/Vol] : [facility] (45870) Urea 26 mg/mg (no code) 6 - 22 mg/mg 11-29-2019 PENDING L OCATION nitrogen/Creatin 21: [facility] (07190) ine [Mass ratio] WBC (Bld) 13.3 10*3/uL (H) 3.5 - 10.5 11-29-2019 PENDING LOCATION [#/Vol] 10*3/uL 21: [facility] () not yet categorized on 2019-11-17 no information NAME: MJ KRAMER (no code) PENDING LOCAT ION ~MED REC#: [facility] ([id number]) [id number] ~ ~PHYSICIAN: ESTRELLA GRECO MD ~Subjective ~Date [...] g/dL 11-16-2019 PENDING LOCATION [Mass/Vol] 03:40-0400 [facility] ([id number]) ALP [Catalytic 73 U/L (NEG) 44 - 147 U/L 11-16-2019 PEND ING LOCATION activity/Vol] 03:40-0400 [facility] ([id number]) ALT [Catalytic U/L (NEG) 4 - 40 U/L 11-16-2019 PENDIN G LOCATION activity/Vol] 03:40-0400 [facility] (31112) Anion gap 10 mmol/L (NEG) 3 - 11 mmol/L 11-16-2019 PENDING LOCATION [Moles/Vol] 03:40-0400 [facility] (58152) Anion gap 6 mmol/L (NEG) 3 - 11 mmol/L 11-16-2019 PENDING LOCATION [Moles/Vol] 22:45-0400 [facility] ([id number]) aPTT Coag (PPP) 29 s (NEG) 25 - 35 s 11-16-2019 [facility] LOCATION [Time] 03:40-0400 [facility] ([id number]) AST [Catalytic 19 U/L (NEG) 10 - 34 U/L 11-16-2019 [facility] LOCATION activity/Vol] 03:40-0400 [facility] ([id number]) Basophils (Bld) 0.0 10*3/uL (NEG) 0 - 0.3 10*3/uL 11-16-2019 PENDING LOCATION [#/Vol] 03:40-0400 [facility] ([id number]) Basophils/100 0 % (NEG) 0.5 - 1 % 11-16-2019 PENDING LOCATION WBC (Bld) 03:40-0400 [facility] (54570) Bilirubin 0.4 mg/dL (NEG) 0.1 - 1.2 mg/dL 11-16-2019 [facility] LOCATION [Mass/Vol] 03:40-0400 [facility] (80814) Calcium 9.1 mg/dL (NEG) 8.5 - 10.2 mg/dL 11-16-2019 [facility] LOCATION [Mass/Vol] 03:40-0400 [facility] (59066) Calcium 8.2 mg/dL (L) 8.5 - 10.2 mg/dL 11-16-2019 [facility] LOCATION [Mass/Vol] 22:45-0400 [facility] (40907) Chloride 106 mmol/L (NEG) 95 - 106 mmol/L 11-16-2019 [facility] LOCATION [Moles/Vol] 03:40-0400 [facility] (02231) Chloride 112 mmol/L (H) 95 - 106 mmol/L 11-16-2019 [facility] LOCATION [Moles/Vol] 22:45-0400 [facility] (09323) Cholesterol 120 mg/dL (no code) 180 - 200 mg/dL 11-16-2019 [facility]END [facility] LOCATION [Mass/Vol] 22:45-0400 [facility] ([id number]) Cholesterol in 51 mg/dL (NEG) 11-16-2019 PENDING LOC ATION HDL [Mass/Vol] 22:45-0400 [facility] (60394) Cholesterol in 57 mg/dL (NEG) 0 - 100 mg/dL 11-16-2019 [facility] LOCATION LDL [Mass/Vol] 22:45-0400 [facility] (30587) Cholesterol in 13 mg/dL (NEG) 11-16-2019 PENDING LOC ATION VLDL [Mass/Vol] 22:45-0400 [facility] (68355) CO2 [Moles/Vol] 26 mmol/L (NEG) 23 - 29 mmol/L 11-16-2019 P ENDING LOCATION 03:40-0400 [facility] (21170) CO2 [Moles/Vol] 27 mmol/L (NEG) 23 - 29 mmol/L 11-16-2019 P ENDING LOCATION 22:45-0400 [facility] (89808) Creatinine 0.78 mg/dL (NEG) 11-16-2019 PENDING LOCATI ON [Mass/Vol] 03:40-0400 [facility] (07422) Creatinine 0.66 mg/dL (NEG) 11-16-2019 PENDING LOCATI ON [Mass/Vol] 22:45-0400 [facility] (35995) Creatinine and > (no code) 11-16-2019 PENDING LOC ATION Glomerular 03:40-0400 [facility] (25916) filtration rate.predicted panel - Serum, Plasma or Blood Creatinine and > (no code) 11-16-2019 PENDING LOC ATION Glomerular 22:45-0400 [facility] (82552) filtration rate.predicted panel - Serum, Plasma or Blood Eosinophils 0.4 10*3/uL (H) 0.05 - 0.5 11-16-2019 PENDING LOCATION (Bld) [#/Vol] 10*3/uL 03:40-0400 [facility] ([id number]) Eosinophils/100 5 % (NEG) 1 - 4 % 11-16-2019 PENDIN G LOCATION WBC (Bld) 03:40-0400 [facility] (70512) Erythrocyte 15.9 % (H) 11.6 - 14.6 % 11-16-2019 [facility] LOCATION distribution 03:40-0400 [facility] (76582) width (RBC) [Ratio] Erythrocyte 16.0 % (H) 11.6 - 14.6 % 11-16-2019 [facility] LOCATION distribution 22:45-0400 [facility] (37100) width (RBC) [Ratio] Glucose 97 mg/dL (NEG) 60 - 125 mg/dL 11-16-2019 PENDING LOCATION [Mass/Vol] 03:40-0400 [facility] (44879) Glucose 99 mg/dL (NEG) 60 - 125 mg/dL 11-16-2019 PENDING LOCATION [Mass/Vol] 22:45-0400 [facility] (02397) Hematocrit (Bld) 46 % (NEG) 36.1 - 50.3 % 11-16-2019 P ENDING LOCATION [Volume 03:40-0400 [facility] (14315) fraction] Hematocrit (Bld) 38 % (NEG) 36.1 - 50.3 % 11-16-2019 P ENDING LOCATION [Volume 22:45-0400 [facility] (66035) fraction] Hemoglobin (Bld) 14.2 g/dL (NEG) 12.1 - 17.2 g/dL 11-16-2019 PENDING LOCATION [Mass/Vol] 03:40-0400 [facility] (72834) Hemoglobin (Bld) 11.6 g/dL (NEG) 12.1 - 17.2 g/dL 11-16-2019 PENDING LOCATION [Mass/Vol] 22:45-0400 [facility] (48694) INR Coag 1.0 (NEG) 11-16-2019 PENDING LOCATI ON (Platelet poor 03:40-0400 [facility] (09403) plasma or blood) [Relative time] Lymphocytes 2.2 10*3/uL (NEG) 0.9 - 2.9 11-16-2019 PENDING LOCATION (Bld) [#/Vol] 10*3/uL 03:40-0400 [facility] (47845) Lymphocytes/100 32 % (NEG) 20 - 40 % 11-16-2019 PENDIN G LOCATION WBC (Bld) 03:40-0400 [facility] (72414) Magnesium 2.1 mg/dL (NEG) 1.7 - 2.2 mg/dL 11-16-2019 PENDIN G LOCATION [Mass/Vol] 03:40-0400 [facility] (56393) Magnesium 1.7 mg/dL (NEG) 1.7 - 2.2 mg/dL 11-16-2019 PENDIN G LOCATION [Mass/Vol] 22:45-0400 [facility] ([id number]) MCH (RBC) 28 pg (NEG) 27 - 31 pg 11-16-2019 PENDING LOC ATION [Entitic mass] 03:40-0400 [facility] ([id number]) MCH (RBC) 27 pg (NEG) 27 - 31 pg 11-16-2019 PENDING LOC ATION [Entitic mass] 22:45-0400 [facility] ([id number]) MCHC (RBC) 31 g/dL (L) 32 - 36 g/dL 11-16-2019 PENDING LOCATION [Mass/Vol] 03:40-0400 [facility] ([id number]) MCHC (RBC) 30 g/dL (L) 32 - 36 g/dL 11-16-2019 PENDING LOCATION [Mass/Vol] 22:45-0400 [facility] ([id number]) MCV (RBC) 89 (NEG) 11-16-2019 PENDING LOCATI ON [Entitic vol] 03:40-0400 [facility] ([id number]) MCV (RBC) 90 (NEG) 11-16-2019 PENDING LOCATI ON [Entitic vol] 22:45-0400 [facility] ([id number]) Monocytes (Bld) 0.7 10*3/uL (NEG) 0.3 - 0.9 11-16-2019 PEND ING LOCATION [#/Vol] 10*3/uL 03:40-0400 [facility] ([id number]) Monocytes/100 10 % (NEG) 2 - 8 % 11-16-2019 PENDING LOCATION WBC (Bld) 03:40-0400 [facility] ([id number]) MRSA isol Org Negative (no code) 11-16-2019 PENDING LOCA TION specific cx Ql 06:13-0400 [facility] (40959) (Unsp spec) Myoglobin 58.8 ng/mL (NEG) 11-16-2019 PENDING LOCATI ON [Mass/Vol] 03:40-0400 [facility] (20531) Neutrophils 3.6 10*3/uL (NEG) 1.7 - 7 10*3/uL 11-16-2019 PE NDING LOCATION (Bld) [#/Vol] 03:40-0400 [facility] ([id number]) Neutrophils/100 52 % (NEG) 40 - 60 % 11-16-2019 PENDIN G LOCATION WBC (Bld) 03:40-0400 [facility] (34971) Phosphate 3.0 mg/dL (NEG) 2.4 - 4.1 mg/dL 11-16-2019 PENDIN G LOCATION [Mass/Vol] 22:45-0400 [facility] (06604) Platelet mean 10.5 (H) 11-16-2019 PENDING LOCA TION volume (Bld) 03:40-0400 [facility] ([id number]) [Entitic vol] Platelet mean 10.4 (NEG) 11-16-2019 PENDING LOCA TION volume (Bld) 22:45-0400 [facility] (21803) [Entitic vol] Platelets (Bld) 270 10*3/uL (NEG) 150 - 450 11-16-2019 PEND ING LOCATION [#/Vol] 10*3/uL 03:40-0400 [facility] (31307) Platelets (Bld) 213 10*3/uL (NEG) 150 - 450 11-16-2019 PEND ING LOCATION [#/Vol] 10*3/uL 22:45-0400 [facility] ([id number]) Potassium 4.0 mmol/L (NEG) 3.7 - 5.2 mmol/L 11-16-2019 PEND ING LOCATION [Moles/Vol] 03:40-0400 [facility] ([id number]) Potassium 3.6 mmol/L (NEG) 3.7 - 5.2 mmol/L 11-16-2019 PEND ING LOCATION [Moles/Vol] 22:45-0400 [facility] ([id number]) Protein 7.0 g/dL (NEG) 6.4 - 8.3 g/dL 11-16-2019 PENDING LOCATION [Mass/Vol] 03:40-0400 [facility] ([id number]) PT Coag (PPP) 13.8 s (NEG) 9.4 - 12.5 s 11-16-2019 PENDI NG LOCATION [Time] 03:40-0400 [facility] ([id number]) RBC (Bld) 5.12 10*6/uL (NEG) 4.2 - 6.1 11-16-2019 PENDING L OCATION [#/Vol] 10*6/uL 03:40-0400 [facility] ([id number]) RBC (Bld) 4.24 10*6/uL (L) 4.2 - 6.1 11-16-2019 PENDING L OCATION [#/Vol] 10*6/uL 22:45-0400 [facility] ([id number]) Sodium 142 mmol/L (NEG) 135 - 145 mmol/L 11-16-2019 PEND ING LOCATION [Moles/Vol] 03:40-0400 [facility] (40927) Sodium 145 mmol/L (NEG) 135 - 145 mmol/L 11-16-2019 PEND ING LOCATION [Moles/Vol] 22:45-0400 [facility] (63400) Triglyceride 64 mg/dL (NEG) 0 - 150 mg/dL 11-16-2019 PENDI NG LOCATION [Mass/Vol] 22:45-0400 [facility] ([id number]) Troponin ng/mL (NEG) 0 - 0.4 ng/mL 11-16-2019 PENDING LOCATION I.cardiac 03:40-0400 [facility] ([id number]) [Mass/Vol] Urea nitrogen 22 mg/dL (H) 7 - 20 mg/dL 11-16-2019 PENDI NG LOCATION [Mass/Vol] 03:40-0400 [facility] ([id number]) Urea nitrogen 12 mg/dL (NEG) 7 - 20 mg/dL 11-16-2019 PENDI NG LOCATION [Mass/Vol] 22:45-0400 [facility] (21640) Urea 28 mg/mg (no code) 6 - 22 mg/mg 11-16-2019 PENDING L OCATION nitrogen/Creatin 03:40-0400 [facility] (80708) ine [Mass ratio] Urea 18 mg/mg (no code) 6 - 22 mg/mg 11-16-2019 PENDING L OCATION nitrogen/Creatin 22:45-0400 [facility] (43174) ine [Mass ratio] WBC (Bld) 6.9 10*3/uL (NEG) 3.5 - 10.5 11-16-2019 PENDING L OCATION [#/Vol] 10*3/uL 03:40-0400 [facility] ([id number]) WBC (Bld) 5.9 10*3/uL (NEG) 3.5 - 10.5 11-16-2019 PENDING L OCATION [#/Vol] 10*3/uL 22:45-0400 [facility] ([id number]) Vital Signs No Information Interventions No Information Plan of Treatment No Information Goals No Information Social History No Information Functional Status No Information Mental Status No Information Encounters Encounter Normalized Encounter Encounter Diagnosis Care Provi jose Organization Date Type 11-29-2019 Emergency department no information [facility] patient visit (no phone) [facility] (no phone) 11-16-2019 Emergency department no information OSMEL MEYER MD [facility] patient visit (no phone) [facility] (no phone) 07-04-2019 Emergency department no [...] [facility] - management of phone) [facility] 12-01-2019 inpatient (no phone) 11-16-2019 Evaluation and no information KRISS MORROW MD (no [facility] - management of phone) [facility] 11-17-2019 inpatient (no phone) 07-04-2019 Evaluation and no information NAPOLEON Bell [facility] - management of (no phone) [facility] 07-06-2019 inpatient (no phone) 01-20-2019 Evaluation and no information no name no organ ization name - management of 01-21-2019 inpatient 06-20-2016 Evaluation and no information no name no organ ization name - management of 06-21-2016 inpatient 11-26-2019 Patient encounter no information SHERINE HARTLEY DO (no [facility] procedure phone) [facility] (no phone) 11-16-2019 Patient encounter no information KRISS MORROW MD (no [facility] - procedure phone) [facility] 11-17-2019 (no phone) 07-04-2019 Patient encounter no information no name no or ganization name - procedure 07-06-2019 01-20-2019 Patient encounter no information no name no or ganization name - procedure 01-21-2019 12-13-2018 Patient encounter no information no name no or ganization name procedure 11-26-2018 Patient encounter no information SHREE DELVALLE MD (n o [facility] procedure phone) [facility] (no phone) 10-17-2018 Patient encounter no [...] PENDING complete W LOCATION Reflex [facility] Culture (21362) panel (U) Additional Source Comments This clinical document has been generated using [employer] software that has been certified by the Office of the National Coordinator for Health Information Technology (ONC 15.99.04.3023.Diam.31.00.0.440948) and the National Committee for Textile Worker (NCQA, as an eMeasure certified technology). FOR [...] BASED ON T HE PRIMARY CLINICAL RECORDS. [employer]. provides no warranty or guara ntee of the accuracy or completeness of information in this document.The followi ng information is based on time limited clinical information
--- OUTSIDE RECORDS SUMMARY | 2019-12-15 | XMS REPORT | Continuity of Care Document ---
Author Organization Unknown Address Unknown Phone Unavailable Allergies Active Description Code Type Severity Reaction Onset Reported/Identified Relationship to Patient Clinical Status Yes Sulfa (Sulfonamide Antibiotics) [id number] 0491 Drug Allergy Unknown N/A 020 Yes Sulfa (Sulfonamide Antibiotics) V94432 0491 Drug Allergy Unknown hives 020 Medications [...] MAMMOGRAM FOR MALIGNANT NE 05/23/2016 CARLA HIRSCH SUPERVISOR BLOOD Ot R25.1 TREMOR, UNSPECIFIED 05/24/2016 Ot V76.12 [...] MAMMOGRAM FOR MALIGNANT NE 05/24/2016 SNCARLA OH SUPERVISOR BLOOD Ot R25.1 TREMOR, UNSPECIFIED 06/14/2016 SNOOKHERONI R SUPERVISOR BLOOD Ot R25.1 TREMOR, UNSPECIFIED 06/20/2016 SNOOK, CARLA R SUPERVISOR BLOOD Ot R25.1 TREMOR, UNSPECIFIED 06/21/2016 TAPIA DO [...] SNGL 12/14/2018 GILBERTO ESPOSITO DO Ot Z79.82 [facility] (CURRENT) USE OF ASPIRIN 12/14/2018 GILBERTO ESPOSITO [...] 12/16/2018 VAIBHAV BLAKE GILBERTO Mario Ot Z79.82 [facility] (CURRENT) USE OF ASPIRIN 12/16/2018 VAIBHAV GILBERTO [...] 01/21/2019 WILL CHILDS MD Ot Z79. 82 [facility] (CURRENT) USE OF ASPIRIN 01/21/2019 WILL CHILDS [...] Ot I25. 10 ATHSCL HEART DISEASE OF [place] CORONARY 01/21/2019 WILL CHILDS MD Ot I48. [...] 01/21/2019 WILL CHILDS MD Ot Z79. 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 10 ATHSCL HEART DISEASE OF [place] CORONARY 11/17/2019 KRISS MORROW MD, Ot I25. [...] 11/17/2019 KRISS MORROW MD Ot Z79. 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 10 ATHSCL HEART DISEASE OF [place] CORONARY 12/01/2019 WILL CHILDS MD Ot I25. [...] On G0008 FLU ADMINISTRATION (MEDICARE ONLY) 04/06/2013 [id number] ME ASURE OF CARDIAC SAMPL PRESSURE, L H 01/21/2019 [id number] FL UOROSCOPY OF MULT COR ART USING L OSM 01/21/2019 [id number] FL UOROSCOPY OF LEFT HEART USING LOW OSMO 01/21/2019 [id number] FL UOROSCOPY OF ABDOMINAL AORTA USING LOW 01/21/2019 [id number] ME ASURE OF CARDIAC SAMPL PRESSURE, L H 07/05/2019 [id number] FL UOROSCOPY OF MULT COR ART USING L OSM 07/05/2019 [id number] FL UOROSCOPY OF LEFT HEART USING LOW OSMO 07/05/2019 [id number] FL UOROSCOPY OF THORACIC AORTA USING LOW [...] culture - 06/20/16 11:45 Bacterial urine culture [id number] NRG COLONY COUNT <10,000 NRG FTX;REPORTABLE SENSITIVITY [...] OF GROWTH Isolated NRG Bacterial blood culture [id number] NRG SUSCEPTIBILITY SUSCEPTIBILITY REPORTED 12-04-19,125 3 NRG [...] culture - 11/30/19 04:38 Bacterial urine culture [id number] NRG COLONY COUNT >100,000/ML NRG SUSCEPTIBILITY SUSCEPTIBILITY [...] Complaint KSWebIZ 06/08/2014 09:49:53 ACT Document Registration [id number] 04/06/2013 16:39:00 04/06/2013 23:59: 59 CLS Outpatient TARA FOSTER DO [id number] 11/30/2019 04:45:00 14:30:00 DIS Inpatient AMADEO PINO, WILL Denis [facility] 4TH SEPSIS,HYPOXIA,CP [id number] 11/26/2019 13:38:00 23:59:59 CLS Outpatient SHERINE HARTLEY DO [facility] RAD BACK PAIN [id number] 11/16/2019 09:24:00 09:30:00 DIS Inpatient CRISTHIAN PINO, KRISS Denis [facility] ICU AFIB W RVR [id number] 07/04/2019 12:35:00 13:25:00 DIS Inpatient ROSY PINO, NAPOLEON Denis [facility] 4TH CHEST PAIN,ELEV ATED TROPONIN,HYPERTENSION,HYPOXIA [id number] 01/20/2019 11:42:00 16:40:00 DIS Inpatient AMADEO PINO, WILL Denis [facility] 4TH AFIB W RVR,CP [id number] 12/13/2018 22:30:00 01:59:00 DIS Emergency VAIBHAV GILBERTO BLAKE [facility] ER RT ARM INJURY [id number] 11/26/2018 08:03:00 019 23:59:59 CLS Outpatient SHREE DELVALLE MD [facility] RAD ABN MAMMO [id number] 10/17/2018 11:53:00 23:59:59 CLS Outpatient OSMEL LINDA DC [facility] RAD ACUTE LOW BACK PAIN [id number] 06/19/2018 14:33:00 019 23:59:59 CLS Outpatient SHREE DELVALLE MD [facility] RAD SCREENING [id number] 04/03/2017 10:15:00 017 23:59:59 CLS Preadmit OTHER, UNLISTED [facility] RAD SCREENING [id number] 06/20/2016 14:25:00 017 14:37:00 DIS Inpatient FLORENCIA TAPIA DO, V [facility] ICU CVA UTI [id number] 05/22/2016 13:39:00 016 23:59:59 CLS Outpatient CARLA HIRSCH APRN [facility] RAD TREMORS [id number] 07/28/2015 10:50:00 016 23:59:59 CLS Outpatient SHILOH PINO, ROULA Barrera [facility] RAD SCREENING [id number] 06/08/2014 09:49:00 014 23:59:59 CLS Outpatient ADAM JON Rohit Barrera [facility] RAD SCREENING [id number] 10/02/2013 12:41:00 014 23:59:59 CLS Outpatient [id number] 07/17/2013 11:18:00 014 23:59:59 CLS Outpatient NAPOLEON GALLEGOS MD [facility] RAD SCREENING,KYPHO SEOLOSIS [id number] 05/25/2013 14:26:00 013 23:59:59 CLS Outpatient NAPOLEON GALLEGOS MD [facility] RAD SCREENING [id number] 12/14/2019 19:57:[address] Emergency OSMEL PINON MD [facility] ER WEAKNESS / UNSTEADY [id number] 06/08/2014 09:48:00 Document Registration [id number] 07/09/2012 07:55:00 Document Registration [id number] 05/14/2012 15:02:00 Document Registration [id number] 01/10/2012 10:34:00 Document Registration [id number] 01/09/2012 14:20:00 Document Registration [id number] 09/20/2011 10:45:00 Document Registration [id number] 05/07/2011 08:48:00 Document Registration [id number] 05/05/2010 09:32:00 Document Registration [id number] 05/04/2009 13:33:00 Document Registration [id number] 01/12/2009 13:36:00 Document Registration [id number] 12/20/2008 09:09:00 Document Registration
[2019-12-15 00:15] VITALS: BP 139/78
--- NOTE | 2019-12-15 00:15 | NUR ---
MJ KRAMER admitted to room 508-1, with an admitting diagnosis of ACUTE HEART FAILURE, on 12/15/19 from ED via WHEELCHAIR, accompanied by HOSPITAL STAFF. MJ KRAMER introduced to surroundings, call light, bed controls, phone, TV, temperature control, lights, meal times, smoking policy, visitor policy, side rail policy, bathrooms and showers. Patient Rights given to patient in the handbook.MJ KRAMER verbalizes understanding that [facility] is not responsible for the loss or damage to any personal effects or valuables that are kept in the patients posession during their hospitalization. MJ KRAMER verbalizes understanding of Interdisciplinary Patient Education. Patient and/or family were informed about the Rapid Response Team and its purpose.
[2019-12-15] MEDS ORDERED: HYDR-4226 PO (01:28)
[2019-12-15 03:58] LABS: BASOPHILS % (AUTO) 0 % (0-10); EOSINOPHILS # (AUTO) 0.1 10^3/uL (0.0-0.3); EOSINOPHILS % (AUTO) 2 % (0-10); HEMATOCRIT 37 % (35-52); HEMOGLOBIN 11.5 G/DL (11.5-16.0); LYMPHOCYTES % (AUTO) 12 % (12-44); MEAN CORPUSCULAR HEMOGLOBIN 27 PG (25-34); MEAN CORPUSCULAR HGB CONC 31 G/DL (32-36); MEAN CORPUSCULAR VOLUME 89 FL (80-99); MEAN PLATELET VOLUME 9.9 FL (7.4-10.4); MONOCYTES % (AUTO) 12 % (0-12); NEUTROPHILS # (AUTO) 6.3 X 10^3 (1.8-7.8); NEUTROPHILS % (AUTO) 74 % (42-75); PLATELET COUNT 410 10^3/uL (130-400); RED CELL DISTRIBUTION WIDTH 16.6 % (10.0-14.5); WHITE BLOOD COUNT 8.5 10^3/uL (4.3-11.0)
[2019-12-15 04:00] VITALS: BP 169/88
[2019-12-15 04:12] LABS: ALBUMIN 3.6 GM/DL (3.2-4.5); CHLORIDE 100 MMOL/L (98-107); POTASSIUM 3.5 MMOL/L (3.6-5.0); SODIUM 143 MMOL/L (135-145)
[2019-12-15 04:13] LABS: CALCIUM 8.6 MG/DL (8.5-10.1)
[2019-12-15 04:14] LABS: GLUCOSE 93 MG/DL (70-105); TOTAL PROTEIN 6.4 GM/DL (6.4-8.2)
[2019-12-15 04:15] LABS: CARBON DIOXIDE 31 MMOL/L (21-32)
[2019-12-15 04:16] LABS: BILIRUBIN,TOTAL 0.4 MG/DL (0.1-1.0)
[2019-12-15 04:18] LABS: ALKALINE PHOSPHATASE 86 U/L (40-136); CREATININE SERUM 0.89 MG/DL (0.60-1.30); GFR ESTIMATED > 60
[2019-12-15 04:19] LABS: BUN/CREATININE RATIO 26
[2019-12-15 04:21] LABS: ALANINE AMINOTRANSFERASE 10 U/L (0-55)
--- NOTE | 2019-12-15 07:13 | NUR ---
DR. GRECO NOTIFIED OF CONSULT.
--- NOTE | 2019-12-15 07:17 | Diagnostic Imaging Report ---
PROCEDURE: CT angiography of the chest with contrast. TECHNIQUE: Multiple contiguous axial images were obtained through the chest after uneventful bolus administration of intravenous contrast. 3D reconstructed CTA MIP acquisitions were also performed. Auto Exposure Controls were utilized during the CT exam to meet ALARA standards for radiation dose reduction. INDICATION: Generalized weakness The previous CT chest exam of 07/04/2019 failed to show any sign of an acute abnormality. The plain film examination of the chest performed prior to this study however did reveal cardiomegaly and pulmonary edema with small bilateral pleural effusions. Those findings are again evident on this study. The effusion of the right lung base measures 2.7 cm in maximum depth while the left-sided effusion is estimated to be 1.5 cm. There is also small amount of associated atelectasis/infiltrate in each lower lobe. The emphysematous changes involving both lungs seen previously are again visualized and no different as well. There is no defect within the pulmonary arteries to indicate a pulmonary embolus. The aorta is not well opacified but the aorta is not abnormally dilated. There is no significant mediastinal or hilar adenopathy. There do appear to be a few low density nodules within both lobes of the thyroid. If further study is desired, then ultrasound would be recommended. The images through the upper abdomen failed to show any sign of an acute abnormality. The cholelithiasis seen on the previous study is not evident on this exam as the gallbladder was not included in its entirety. The post-kyphoplasty changes involving L1 and the compression deformities of T11 and T7 seen previously are again evident and no different. IMPRESSION: 1. The appearance of the chest has worsened since the prior study as the heart has increased in size and there is now evidence of pulmonary congestion. There are also bilateral pleural effusions with a small amount of associated atelectasis/infiltrate. 2. There is no acute abnormality identified otherwise. In particular there is no sign of a pulmonary embolus. Dictated by: Dictated on workstation # [id number]
[2019-12-15 08:00] VITALS: BP 158/91
--- NOTE | 2019-12-15 08:44 | Short Stay Summary-Hospitalist ---
History of Present Illness HPI/Chief Complaint Pt is an 84yoCF with a PMH of a-fib, HTN, and recent UTI who was admitted due to generalized weakness. She was admitted here two weeks ago due to chest pain and was found to be bacteremic with e coli from a UTI. She was treated with oral antibiotics along with an "antibiotic shot" by her PCP for 3 days. The last dose of this shot was on 12/12. She states since starting the shot she has been feeling worse. She had swelling in her legs and was weak and unsteady. She called her PCP and they recommended she seek evaluation in the ER. She was found to have an elevated BNP and CXR congestion with vascular congestion. She was admitted for acute heart failure. This morning she states she is feeling better and is requesting DC home. She has not yet been up to ambulate but has been up to the commode multiple times. Source: patient, family Date Seen 12/15/19 Time Seen by a Provider: 08:44 Attending Physician Mario Morton MD PCP No,Local Physician Referring Physician Date of Admission Dec 14, 2019 at 23:32 Home Medications & Allergies Home Medications Reviewed patient Home Medication Reconciliation performed by pharmacy medication reconciliations agricultural service technician and/or nursing. Patients Allergies have been reviewed. Allergies Allergies Coded Allergies Sulfa (Sulfonamide Antibiotics) (Verified Allergy, Unknown, hives, 11/16/19) Past Vdulhjt-Krejqs-Xjevbb Hx Past Med/Social Hx: Reviewed Nursing Past Med/Soc Hx Patient Social History Marrital Status: Alcohol Use: Denies Use Recreational Drug Use: No Smoking Status: Former Smoker Former Smoker, Quit: Jun 17, 1999 Type Used: Cigarettes Recent Foreign Travel: No Contact w/other who traveled: No Recent Hopitalizations: No Recent Infectious Disease Expo: No Immunizations Up To Date Tetanus Booster (TDap): Less than 5yrs Pediatric: Yes Date of Pneumonia Vaccine: Feb 20, 2016 Date of Influenza Vaccine: Jun 10, 2019 Seasonal Allergies Seasonal Allergies: Yes Past Medical History Surgeries: Abdominal, Cardiac, Hysterectomy, Orthopedic, Tonsillectomy Cardiac: Atrial Fibrillation, Heart Attack, Hypertension Neurological: Parkinson's Disease, Stroke : No Reproductive: No Sexually Transmitted Disease: No Hysterectomy, Menopausal Musculoskeletal: Degenerate Disk Disease, Arthritis, Chronic Back Pain Psychosocial: Anxiety History of Blood Disorders: No Family History Reviewed Nursing Family Hx Cardiovascular disease 19 FATHER Hypertension 19 FATHER No Pertinent Family Hx Review of Systems Constitutional: see HPI; No chills, No fever; weakness EENTM: no symptoms reported Respiratory: No cough, No short of breath Cardiovascular: No chest pain, No palpitations Gastrointestinal: No abdominal pain, No nausea, No vomiting Genitourinary: No dysuria; frequency (since starting lasix); No incontinence Musculoskeletal: no symptoms reported Skin: no symptoms reported Psychiatric/Neurological: No Symptoms Reported Physical Exam Physical Exam Vital Signs Vital Signs - First Documented Capillary Refill : Less Than 3 Seconds Height, Weight, BMI Height: 5'7.00" Weight: 123lbs. 2.0oz. 55.746744yp; 21.67 BMI Method:Stated General Appearance: No Apparent Distress, WD/WN, Thin HEENT: PERRL/EOMI, Moist Mucous Membranes; No Scleral Icterus (L), No Scleral Icterus (R) Neck: Normal Inspection, Supple Respiratory: Lungs Clear, No Accessory Muscle Use, Other (on 3lpm NC) Cardiovascular: Regular Rate, Rhythm, No Murmur Gastrointestinal: Normal Bowel Sounds, Non Tender, Soft Extremity: Non Tender, Pedal Edema (trace, bilaterally) Neurologic/Psychiatric: Alert, Oriented x3 Results Results/Procedures Labs Laboratory Tests 12/14/19 20:50 12/15/19 03:38 Patient resulted labs reviewed. Imaging: Reviewed Imaging Report Imaging [facility], [place] NAME: [facility] REC#: [id number] PT STATUS: REG ER : 1935 PHYSICIAN: OSMEL PINON MD ADMIT DATE: 12/14/19/ER Signed Date of Exam:12/14/19 CHEST 1 VIEW, AP/PA ONLY EXAMINATION: Chest 1 view HISTORY: Weakness COMPARISON: 11/30/2019 FINDINGS: There is a left shoulder arthroplasty. Heart is enlarged. There are small pleural effusions. No pneumothorax. There is mild to moderate edema. IMPRESSION: 1. Mild to moderate edema with enlarged heart and small pleural effusions. Dictated by: Dictated on workstation # [id number] Dict: 12/14/192128 Trans: 12/14/192151 [facility] [id number] Interpreted by: ROULA GALINDO MD Electronically signed by: ROULA GALINDO MD 12/14/192151 [facility] [place] NAME: [facility] REC#: [id number] PT STATUS: ADM IN : 1935 PHYSICIAN: OSMEL PINON MD ADMIT DATE: 12/14/19/[facility] Signed Date of Exam:12/14/19 CT ANGIO CHEST W PROCEDURE: CT angiography of the chest with contrast. TECHNIQUE: Multiple contiguous axial images were obtained through the chest after uneventful bolus administration of intravenous contrast. 3D reconstructed CTA MIP acquisitions were also performed. Auto Exposure Controls were utilized during the CT exam to meet ALARA standards for radiation dose reduction. INDICATION: Generalized weakness The previous CT chest exam of 07/04/2019 failed to show any sign of an acute abnormality. The plain film examination of the chest performed prior to this study however did reveal cardiomegaly and pulmonary edema with small bilateral pleural effusions. Those findings are again evident on this study. The effusion of the right lung base measures 2.7 cm in maximum depth while the left-sided effusion is estimated to be 1.5 cm. There is also small amount of associated atelectasis/infiltrate in each lower lobe. The emphysematous changes involving both lungs seen previously are again visualized and no different as well. There is no defect within the pulmonary arteries to indicate a pulmonary embolus. The aorta is not well opacified but the aorta is not abnormally dilated. There is no significant mediastinal or hilar adenopathy. There do appear to be a few low density nodules within both lobes of the thyroid. If further study is desired, then ultrasound would be recommended. The images through the upper abdomen failed to show any sign of an acute abnormality. The cholelithiasis seen on the previous study is not evident on this exam as the gallbladder was not included in its entirety. The post-kyphoplasty changes involving L1 and the compression deformities of T11 and T7 seen previously are again evident and no different. IMPRESSION: 1. The appearance of the chest has worsened since the prior study as the heart has increased in size and there is now evidence of pulmonary congestion. There are also bilateral pleural effusions with a small amount of associated atelectasis/infiltrate. 2. There is no acute abnormality identified otherwise. In particular there is no sign of a pulmonary embolus. Dictated by: Dictated on workstation # [id number] Dict: 12/15/19 0707 Trans: 12/15/19 1208 CVB [id number] Interpreted by: HALEIGH PIZANO MD Electronically signed by: HALEIGH PIZANO MD 12/15/19 1208 Short Stay Diagnosis Discharge Diagnosis-Short Stay Admission Diagnosis Heart Failure Final Discharge Diagnosis Heart Failure Conclusion Plan Heart Failure- acutely decompensated diastolic pAF HTN hypoxia Cardiology consulted, appreciate recs BNP up Troponin negative Improving with diuresis -2L today Requesting DC home Home O2 study negative procal, normal WBCs, and afebrile so no indication for antibiotics Debility PT/OT consulted ambulated well Offered home health but she declined as she would prefer to go to outpatient therapy Clinical Quality Measures DVT/VTE Risk/Contraindication: Risk Factor Score Per Nursin RFS Level Per Nursing on Admit: 3=High KRISS MORROW MD Dec 15, 2019 08:44
--- NOTE | 2019-12-15 08:59 | Consultation-Cardiology ---
HPI-Cardiology Cardiology Consultation Date of Consultation 12/15/19 Date of Admission Time Seen by Provider: 08:54 Indication: generalized weakness and fatigue HPI 84-year-old lady with history of sinus node dysfunction, paroxysmal atrial fibrillation, was receiving treatment for urinary tract infection, reported that after the last injection of antibiotic by home health care she felt weak and unsteady, had no energy. Denied any chest pain or shortness of breath, had mild pedal edema. No syncope or near syncopal episodes. Seen in the emergency room and admitted for observation. Currently she is feeling better. No new complaint Home Medications & Allergies Allergies: Coded Allergies: Sulfa (Sulfonamide Antibiotics) (Verified Allergy, Unknown, hives, 11/16/19) Home Medication List Reviewed: Yes [id number] Hx Patient Social History Marital Status: Employed/Student: retired Alcohol Use: Denies Use Recreational Drug Use: No Smoking Status: Former Smoker Type Used: Cigarettes Recent Foreign Travel: No Recent Infectious Disease Expo: No Recent Hopitalizations: No Immunizations Up To Date Tetanus Booster (TDap): Less than 5yrs Date of Pneumonia Vaccine: Feb 20, 2016 Date of Influenza Vaccine: Jun 10, 2019 Past Medical History Discussed below Family Medical History Significant Family History: No Pertinent Family Hx Family History: Cardiovascular disease 19 FATHER Hypertension 19 FATHER Review of Systems-General Review of Systems Constitutional: chills, weakness EENTM: no symptoms reported Respiratory: see HPI; No cough; dyspnea on exertion; No hemoptysis, No orthopnea, No phlegm, No short of breath, No stridor, No wheezing, No other Cardiovascular: see HPI; No chest pain; edema; No Hx of Intervention, No palpitations, No syncope, No vascular heart diseas, No other Gastrointestinal: see HPI; No constipation, No nausea, No vomiting Genitourinary: see HPI, dysuria (due to raw skin); No frequency, No hematuria Musculoskeletal: no symptoms reported, see HPI Skin: no symptoms reported, see HPI Psychiatric/Neurological: No Symptoms Reported, See HPI All Other Systems Reviewed Negative Unless Noted: Yes Reviewed Test Results Reviewed Test Results Lab Laboratory Tests Test 12/14/19 20:34 12/14/19 20:50 12/15/19 03:38 Range/Units Urine Color YELLOW Urine Clarity CLEAR Urine pH 5.0 5-9 Urine Specific Willet >=1.030 1.016-1.022 Urine Protein NEGATIVE NEGATIVE Urine Glucose (UA) NEGATIVE NEGATIVE Urine Ketones TRACE H NEGATIVE Urine Nitrite NEGATIVE NEGATIVE Urine Bilirubin NEGATIVE NEGATIVE Urine Urobilinogen 0.2 < = 1.0 MG/DL Urine Leukocyte Esterase NEGATIVE NEGATIVE Urine RBC (Auto) NEGATIVE NEGATIVE Urine RBC NONE /HPF Urine WBC 0-2 /HPF Urine Squamous Epithelial Cells 2-5 /HPF Urine Crystals NONE /LPF Urine Bacteria TRACE /HPF Urine Casts PRESENT /LPF Urine Hyaline Casts RARE /LPF Urine Mucus SMALL H /LPF Urine Culture Indicated CULTURE PENDING White Blood Count 8.1 8.5 4.3-11.0 10^3/uL Red Blood Count 4.17 L 4.19 L 4.35-5.85 10^6/uL Hemoglobin 11.5 11.5 11.5-16.0 G/DL Hematocrit 37 37 35-52 % Mean Corpuscular Volume 90 89 80-99 FL Mean Corpuscular Hemoglobin 28 27 25-34 PG Mean Corpuscular Hemoglobin Concent 31 L 31 L 32-36 G/DL Red Cell Distribution Width 16.6 H 16.6 H 10.0-14.5 % Platelet Count 412 H 410 H 130-400 10^3/uL Mean Platelet Volume 10.0 9.9 7.4-10.4 FL Neutrophils (%) (Auto) 70 74 42-75 % Lymphocytes (%) (Auto) 17 12 12-44 % Monocytes (%) (Auto) 11 12 0-12 % Eosinophils (%) (Auto) 1 2 0-10 % Basophils (%) (Auto) 0 0 0-10 % Neutrophils # (Auto) 5.7 6.3 1.8-7.8 X 10^3 Lymphocytes # (Auto) 1.4 1.0 1.0-4.0 X 10^3 Monocytes # (Auto) 0.9 1.0 0.0-1.0 X 10^3 Eosinophils # (Auto) 0.1 0.1 0.0-0.3 10^3/uL Basophils # (Auto) 0.0 0.0 0.0-0.1 10^3/uL Prothrombin Time 14.8 H 12.2-14.7 SEC INR Comment 1.1 0.8-1.4 Activated Partial Thromboplast Time 34 24-35 SEC Sodium Level 140 143 135-145 MMOL/L Potassium Level 3.7 3.5 L 3.6-5.0 MMOL/L Chloride Level 101 100 98-107 MMOL/L Carbon Dioxide Level 28 31 21-32 MMOL/L Anion Gap 11 12 5-14 MMOL/L Blood Urea Nitrogen 30 H 23 H 7-18 MG/DL Creatinine 0.95 0.89 0.60-1.30 MG/DL Estimat Glomerular Filtration Rate 56 > 60 BUN/Creatinine Ratio 32 26 Glucose Level 101 93 70-105 MG/DL Lactic Acid Level 0.82 0.50-2.00 MMOL/L Calcium Level 9.0 8.6 8.5-10.1 MG/DL Corrected Calcium 9.2 8.9 8.5-10.1 MG/DL Total Bilirubin 0.3 0.4 0.1-1.0 MG/DL Aspartate Amino Transf (AST/SGOT) 33 30 5-34 U/L Alanine Aminotransferase (ALT/SGPT) 8 10 0-55 U/L Alkaline Phosphatase 89 86 40-136 U/L Troponin I < 0.028 <0.028 NG/ML C-Reactive Protein High Sensitivity 0.87 H 0.00-0.50 MG/DL B-Type Natriuretic Peptide 927.5 H <100.0 PG/ML Total Protein 6.6 6.4 6.4-8.2 GM/DL Albumin 3.7 3.6 3.2-4.5 GM/DL Procalcitonin 0.06 <0.10 NG/ML Physical Exam Physical Exam Vital Signs Vital Signs - First Documented Capillary Refill : Less Than 3 Seconds Height, Weight, BMI Height: 5'7.00" Weight: 123lbs. 2.0oz. 55.147886he; 21.67 BMI Method:Stated General Appearance: No Apparent Distress, WD/WN Eyes: Bilateral Eye Normal Inspection, Bilateral Eye PERRL, Bilateral Eye EOMI HEENT: PERRL/EOMI, Pharynx Normal Neck: Full Range of Motion, Non Tender, Supple Respiratory: Chest Non Tender, Lungs Clear, Normal Breath Sounds; No Wheezing Cardiovascular: Regular Rate, Rhythm, No Murmur Gastrointestinal: Non Tender, Soft Back: Normal Inspection, No CVA Tenderness, No Vertebral Tenderness Extremity: Normal Range of Motion, Non Tender, Pedal Edema (1+ pitting bilaterally) Neurologic/Psychiatric: Alert, Oriented x3 Skin: Normal Color, Warm/Dry Lymphatic: No Adenopathy A/P-Cardiology Admission Diagnosis Generalized weakness Sinus node dysfunction Coronary artery disease Paroxysmal atrial fibrillation Assessment/Plan Generalized weakness and loss of energy, workup has been negative. Feeling better at this time. Okay for discharge from cardiology standpoint Mildly elevated BNP, acute on chronic left ventricular diastolic dysfunction, hypertensive heart disease. Continue to monitor Sinus node dysfunction, history of bradycardia, heart rate is better at this time, maintained heart rate in the 60s, due to the paroxysmal atrial fibrillatio n I will continue on amiodarone and decrease the dose to once daily. Status post urinary tract infection, received the last dose of antibiotic yesterday. History of chest pain, workup was negative previously. Currently no active chest pain. Nonobstructive coronary artery disease per cardiac catheterization done January 21, 2019. Repeat cardiac catheterization done June 2019 after having elevated troponin showed tortuous coronaries with nonobstructive disease, continue to monitor. Paroxysmal atrial fibrillation, was hospitalized earlier this month for A. fib with RVR. Was unable to tolerate Cardizem secondary to hypotension. Was started on sotalol, however was discontinued secondary to prolonged QT interval. Currently maintained on amiodarone. Norvasc recently discontinued secondary to bradycardia. History of Dick's palsy Hypertension, I am hesitant to change her blood pressure medication due to her fatigue and loss of energy. Continue to monitor Hyperlipidemia, well controlled, maintained on lovastatin, continue to monitor History of Parkinson's. Nonobstructive carotid artery stenosis per carotid duplex done February 2019, continue to monitor. Clinical Quality Measures DVT/VTE Risk/Contraindication: Risk Factor Score Per Nursin RFS Level Per Nursing on Admit: 3=High ESTRELLA GRECO MD Dec 15, 2019 08:59
[2019-12-15] MEDS ORDERED: FUROSEMIDE 40 MG/4 ML INJ (LASIX) IV SCH (09:00)
[2019-12-15] MEDS ORDERED: APIXABAN 2.5 MG (ELIQUIS) TABLET PO SCH (09:08)
[2019-12-15] MEDS ORDERED: AMIODARONE 200 MG (CORDARONE) TAB PO SCH (09:08)
[2019-12-15] MEDS: rOPINIRole 1 MG (REQUIP) TABLET PO SCH ×2 (10:18→14:58)
[2019-12-15] MEDS: SINEMET 25/100 (CARBIDOPA/LEVODOPA) TAB PO SCH ×2 (10:18→14:59)
--- NOTE | 2019-12-15 10:22 | Physical Therapy Evaluation ---
PT Evaluation-General Medical Diagnosis Admission Date Dec 14, 2019 at 23:32 Medical Diagnosis: CHF Onset Date: Dec 14, 2019 Therapy Diagnosis Therapy Diagnosis: debility/weakness Height/Weight Height (Feet): 5 Height (Inches): 7.00 Weight (Pounds): 123 Weight (Ounces): 2.0 Precautions Precautions/Isolations: Fall Prevention, Standard Precautions Weight Bear Status Right Lower Extremity: Right Weight Bearing/Tolerated Left Lower Extremity: Left Weight Bearing/Tolerated Referral Physician: Tiffany Medical History Pertinent Medical History: Atrial Fib, Arthritis, CAD, HTN, [place], Parkinson's Additional Medical History bilateral TKR Current History ER secondary to weakness/recent hospital stay due to UTI Reviewed History: Yes Social History Home: Single Level Current Living Status: Spouse Entry Into Home: Ramp Prior Prior Level of Function SCALE: Activities may be completed with or without assistive devices. 8-Prlkqmvola-biinvwm completes the activity by him/herself with no assistance from a helper. 5-Set-up or Clean-up Assistance-helper sets up or cleans up; patient completes activity. [place] assists only prior to or following the activity. 4-Supervision or Touching Assistance-helper provides verbal cues and/or touching/steadying and/or contact guard assistance as patient completes activity. Assistance may be provided throughout the activity or intermittently. 3-Partial/Moderate Assistance-helper does LESS THAN HALF the effort. [place] lifts, holds or supports trunk or limbs, but provides less than half the effort. 2-Substantial/Maximal Assistance-helper does MORE THAN HALF the effort. [place] lifts or holds trunk or limbs and provides more than half the effort. 2-Qaxhiekay-ukdzav does ALL the effort. Patient does none of the effort to complete the activity. Or, the assistance of 2 or more helpers is required for the patient to complete the activity. If activity was not attempted, code reason: 7-Patient Refused. 9-Not Applicable-not attempted and the patient did not perform the activity before the current illness, exacerbation or injury. 10-Not Attempted due to Environmental Limitations-(lack of equipment, weather restraints, etc.). 88-Not Attempted due to Medical Conditions or Safety Concerns. Bed Mobility: 6 Transfers (B,C,W/C): 6 Gait: 6 Indoor Mobility (Ambulation): Independent Prior Devices Use: Walker PT Evaluation-Current Subjective Patient agrees to PT. Pain Numeric Pain Scale: 0-No Pain Location: No Pain Reported Objective Patient Orientation: Normal For Age ROM/Strength ROM Lower Extremities bilateral LE WFL Strength Lower Extremities 4/5 grossly bilateral LE Integumentary/Posture Integumentary refer to nursing notes Bowel Incontinence: No Bladder Incontinence: No Posture WFL Neuromuscular (Tone, Coordination, Reflexes) grossly intact Sensory Vision: Functional Hearing: Functional Sensation Right Lower Extremit: Intact Sensation Left Lower Extremity: Intact Transfers Roll Left to Right (QC): 6 Sit to Lying (QC): 6 Lying to Sitting/Side of Bed(Q: 6 Sit to Stand (QC): 6 Gait Does the Patient Walk?: Yes Mode of Locomotion: Walk Anticipated Mode of Locomotion: Walk Walk 10 feet (QC): 6 Walk 50 ft with 2 Turns(QC): 6 Walk 150 ft (QC): 6 Distance: 400' Gait Assistive Device: FWW Comments/Gait Description safe and functional with no deviation Balance Sitting Static: Normal Sitting Dynamic: Normal Standing Static: Normal Standing Dynamic: Normal Assessment/Needs 84 y.o. female, is currently at [facility] with all gross motor skills and does not require skilled therapy intervention. Thank you for this referral. Rehab Potential: Fair PT Plan Treatment/Plan Treatment Plan: Discontinue PT, goals met Treatment Duration: Dec 15, 2019 Frequency: 1 time per week Estimated Hrs Per Day: .25 hour per day Patient and/or Family Agrees t: Yes Discharge Recommendations Therapy Discharge Recommendati: Home & Family Time/GCodes Time In: 921 Time Out: 931 Total Billed Treatment Time: 10 Total Billed Treatment 1 visit EVMod 10 min JUAN MANUEL LORENZO PT Dec 15, 2019 10:22
--- NOTE | 2019-12-15 11:15 | Occupational Therapy Eval ---
OT Evaluation-General/PLF Medical Diagnosis Admission Date Dec 14, 2019 at 23:32 Medical Diagnosis: CHF Onset Date: Dec 14, 2019 Therapy Diagnosis Therapy Diagnosis: Decreased ADL skills Height/Weight Height (Feet): 5 Height (Inches): 7.00 Weight (Pounds): 123 Weight (Ounces): 2.0 Precautions Precautions/Isolations: Fall Prevention, Standard Precautions Weight Bear Status Weight Bearing Restriction: Weight Bearing/Tolerated Referral Physician: Tiffany Referral Reason: Activity Tolerance, Self Care, Evaluation/Treatment Medical History Pertinent Medical History: Atrial Fib, Arthritis, CAD, CVA, HTN, [place], Parkinson's Additional Medical History Parkinsons, DDD Current History Pt. had recent hospital stay due to UTI. Pt. back with acute heart failure. Reviewed History: Yes Social History Home: Single Level Current Living Status: Spouse Entry Into Home: Ramp Pt. reports that her spouse does not ambulate well, and that is why they have a ramp. ADL-Prior Level of Function SCALE: Activities may be completed with or without assistive devices. 6-Imvazzovvl-ncszbdj completes the activity by him/herself with no assistance from a helper. 5-Set-up or Clean-up Assistance-helper sets up or cleans up; patient completes activity. [place] assists only prior to or following the activity. 4-Supervision or Touching Assistance-helper provides verbal cues and/or t ouching/steadying and/or contact guard assistance as patient completes activity. Assistance may be provided throughout the activity or intermittently. 3-Partial/Moderate Assistance-helper does LESS THAN HALF the effort. [place] lifts, holds or supports trunk or limbs, but provides less than half the effort. 2-Substantial/Maximal Assistance-helper does MORE THAN HALF the effort. [place] lifts or holds trunk or limbs and provides more than half the effort. 7-Syeqeddvq-ucrpoo does ALL the effort. Patient does none of the effort to complete the activity. Or, the assistance of 2 or more helpers is required for the patient to complete the activity. If activity was not attempted, code reason: 7-Patient Refused. 9-Not Applicable-not attempted and the patient did not perform the activity before the current illness, exacerbation or injury. 10-Not Attempted due to Environmental Limitations-(lack of equipment, weather restraints, etc.). 88-Not Attempted due to Medical Conditions or Safety Concerns. ADL PLOF Comments Pt. reports she is fully independent with daily skills. Self Care: Independent Functional Cognition: Independent DME/Equipment Comments Pt. has walk in tub at home. Drive Self: Yes OT Current Status Subjective No pain reported. Appearance Pt. in bed when OT entered. Had just finished using BSC on her own with no difficulty. Mental Status/Objective Patient Orientation: Person, Place, Time, Situation Attachments: Oxygen, Telemetry Current Glasses/Contacts: Yes ADL-Treatment Shower/Bathe Self (QC): 7 (Pt. declines showering but states that she will use her walk in tub when she gets home.) Upper Body Dressing (QC): 6 Lower Body Dressing (QC): 6 Toileting Hygiene (QC): 6 (Reported by pt. Pt. has used BSC multiple times.) Other Treatments Pt. declines showering but agrees to get dressed. Pt. transfers supine-sit with independence. Dons shirt and pants with no difficulty. Stands with no LOB to pull pants over hips. Pt. reports that she has been using BSC on her own. All needs met. Education OT Patient Education: Correct positioning, Modified ADL techniques, Progress toward Goal/Update tx plan, Purpose of tx/functional activities, Reviewed precautions, Rehab process, Transfer techniques Teaching Recipient: Patient Teaching Methods: Demonstration, Discussion Response to Teaching: Verbalize Understanding, Return Demonstration OT Supervisor Transferring And Boxing Goals Skilled Nursing Goals Time Frame: Dec 15, 2019 Additional Goals: 1-Demonstrate ADL Tasks, 2-Verbalize Understanding 1=Demonstrate adherence to instructed precautions during ADL tasks. 2=Patient will verbalize/demonstrate understanding of assistive devices/modifications for ADL. 3=Patient will improve strength/tolerance for activity to enable patient to perform ADL's. Pt. demonstrates ability to don clothing and transfer with independence. No further OT warranted at this time. OT Education/Plan Problem List/Assessment Assessment: No Skilled OT Needs ID'd Discharge Recommendations Plan/Recommendations: Discharge/Goals Met Treatment Plan/Plan of Care Treatment,Training & Education: Yes Plan of Care: OTHER (DC OT) Treatment Duration: Dec 15, 2019 Frequency: 1 time per week Estimated Hrs Per Day: .25 hour per day Agreement: Yes Rehab Potential: Good Time/GCodes Start Time: 10:50 Stop Time: 11:02 Total Time Billed (hr/min): 12 Billed Treatment Time 1, KARI FREEDMAN OT Dec 15, 2019 11:15
[2019-12-15 12:00] VITALS: BP 147/90
--- NOTE | 2019-12-15 12:25 | Discharge Inst-Simple/Standard ---
Discharge Inst-Standard Reconcile Patient Problems Problems Reviewed?: Yes Patient Instructions/Follow Up Plan of Care/Instructions/FU: Please continue to take your medications as written. Please follow up with Dr. Ahuja and Dr Kaplan in the next week. Activity as Tolerated: Yes Discharge Diet: Low Sodium Diet Return to The Hospital For: Chest pain, shortness of breath, fever, cough, weakness, confusion, if you feel you are getting worse. KRISS MORROW MD Dec 15, 2019 12:22
--- NOTE | 2019-12-15 14:18 | NUR ---
SPO2 DROPPED TO 64% ON ROOM AIR @ REST. REPLACED O2 @ 2 LPM. SPO2 INCREASED TO 90% ON 2 LPM. Addendum: 12/15/19 at 1444 by VALERI LEWIS RT Amended: Links added.
--- NOTE | 2019-12-15 15:31 | NUR ---
CM/SS visited with the patient for discharge planning. Plan: The patient will return home with new oxygen need of 2 L continuous. The patient's will provide transportation home. DME: The patient was provided with a patient preference form and chose [facility]. CM/SS contacted [facility] to inform them of need. CM/SS faxed short summary stay, face sheet, script, and oxygen qualifiers. CM/SS specified the patient would need a N6 tank due to patients size and strength. They verified they will bring one. CM/SS visited with the patient this a.m. to discuss physical therapy due to her being off balanced and weak. She states that she is unwilling to participate in the inpatient rehab at this time. The patient reports she would like to get home today. CM/SS asked if the patient would be willing to have home health. She reported she would not be willing because she is signed up for the "wellness" at [facility] and is already active/walks every day. CM/SS discussed the other benefits associated with home health. She states she does not need a nurse bow maker production because she was able to call the nurse and come to emergency room. CM/SS discussed multiple readmissions with patient and need for services if patient is admitted again. She verbalized understanding. The patient was not willing to have this set up any services at this time other than oxygen. The patient had multiple questions about her new oxygen. CM/SS explained the process through the DME and home set up. The patient stated that she probably wont wear it "if she has to roll it around". CM/SS informed her that her sats dropped into the low 60's after only 20 min. CM/SS informed the patient that if she took her oxygen off and was moving around her levels would become critical and life threatening. The patient verbalized understanding. CM/SS asked [facility] to bring N6 tanks. They stated they will deliver them to the hospital. The patient did not have any further questions or needs at this time.
[2019-12-15] MEDS ORDERED: SIMvastatin 10 MG (ZOCOR) TAB PO SCH (21:00)
[2019-12-15] MEDS ORDERED: ASPIRIN E.C. 81 MG (ECOTRIN) TAB PO SCH (21:00)
[2019-12-16] MEDS ORDERED: lisINopril 40 MG (PRINIVIL) TABLET PO SCH (09:00)
== END 2019-12-15 17:55 | disposition home or self-care (01) | DRG 291 ==
LOC: EDUNIT# 19:56 → ER 19:57 → CSD 23:32
PROVIDERS: ADMIT Internal Medicine; ATTEND Internal Medicine
DX: I11.0 Hypertensive heart disease with heart failure (principal); I50.31 Acute diastolic (congestive) heart failure; I48.0 Paroxysmal atrial fibrillation; R09.02 Hypoxemia; M19.91 Primary osteoarthritis, unspecified site; M54.9 Dorsalgia, unspecified; G20 Parkinson's disease; F41.9 Anxiety disorder, unspecified; I25.2 Old myocardial infarction; Z96.653 Presence of artificial knee joint, bilateral; Z96.612 Presence of left artificial shoulder joint; G89.29 Other chronic pain; I25.10 Atherosclerotic heart disease of native coronary artery without angina pectoris; I49.5 Sick sinus syndrome; Z87.440 Personal history of urinary (tract) infections; Z87.891 Personal history of nicotine dependence; Z86.73 Personal history of transient ischemic attack (TIA), and cerebral infarction without residual deficits; Z88.2 Allergy status to sulfonamides
CPT/HCPCS: 36415; 71045; 71275; 80053; 81000; 83605; 83880; 84145; 84484; 85025; 85610; 85730; 86141; 87040; 87088; 93005; 94761

== ENCOUNTER → 2019-12-30 | Day surgery (SDC) | payer MEDICARE, OTHER ==
[~2019-12-30] VITALS: Ht 167.7 cm; Wt 53.0 kg
[~2019-12-30] MED LIST changes: +HYDR-4226 PO; +LIDOCAINE 1% INJ 20 ML 20 ML VIAL ONE
--- OUTSIDE RECORDS SUMMARY | 2019-12-30 10:06 | XMS REPORT | Continuity of Care Document ---
Author Organization Unknown Address Unknown Phone Unavailable Allergies Active Description Code Type Severity Reaction Onset Reported/Identified Relationship to Patient Clinical Status Yes Sulfa (Sulfonamide Antibiotics) [id number] 0491 Drug Allergy Unknown N/A 020 Yes Sulfa (Sulfonamide Antibiotics) L49206 0491 Drug Allergy Unknown hives 020 Medications [...] MAMMOGRAM FOR MALIGNANT NE 05/23/2016 CARLA HIRSCH DRYING OVEN TENDER Ot R25.1 TREMOR, UNSPECIFIED 05/24/2016 Ot V76.12 [...] MAMMOGRAM FOR MALIGNANT NE 05/24/2016 SNCARLA OH DRYING OVEN TENDER Ot R25.1 TREMOR, UNSPECIFIED 06/14/2016 SNOOKHERONI R DRYING OVEN TENDER Ot R25.1 TREMOR, UNSPECIFIED 06/20/2016 SNOOK, CARLA R DRYING OVEN TENDER Ot R25.1 TREMOR, UNSPECIFIED 06/21/2016 TAPIA DO [...] SNGL 12/14/2018 GILBERTO ESPOSITO DO Ot Z79.82 HALF-WAY (CURRENT) USE OF ASPIRIN 12/14/2018 GILBERTO ESPOSITO [...] 12/16/2018 VAIBHAV BLAKE GILBERTO Mario Ot Z79.82 HALF-WAY (CURRENT) USE OF ASPIRIN 12/16/2018 VAIBHAV GILBERTO [...] 01/21/2019 WILL CHILDS MD Ot Z79. 82 HALF-WAY (CURRENT) USE OF ASPIRIN 01/21/2019 WILL CHILDS [...] Ot I25. 10 ATHSCL HEART DISEASE OF [place] CORONARY 01/21/2019 WILL CHILDS MD Ot I48. [...] 01/21/2019 WILL CHILDS MD Ot Z79. 82 HALF-WAY (CURRENT) USE OF ASPIRIN 01/21/2019 WILL CHILDS [...] MD Ot I25.10 ATHSCL HEART DISEASE OF [place] CORONARY 07/06/2019 NAPOLEON GALLEGOS MD Ot I25.2 [...] UNSPECIFIED 07/06/2019 NAPOLEON GALLEGOS MD Ot Z79.01 MENTAL HEALTH ADVANCED PRACTICE NURSE (CURRENT) USE OF ANTICOAGULANT 07/06/2019 NAPOLEON GALLEGOS [...] Ot I25. 10 ATHSCL HEART DISEASE OF [place] CORONARY 11/17/2019 KRISS MORROW MD, Ot I25. [...] 11/17/2019 KRISS MORROW MD Ot Z79. 01 MENTAL HEALTH ADVANCED PRACTICE NURSE (CURRENT) USE OF ANTICOAGULANT 11/17/2019 KRISS MORROW [...] Ot I25. 10 ATHSCL HEART DISEASE OF [place] CORONARY 12/01/2019 WILL CHILDS MD Ot I25. 2 OLD MYOCARDIAL INFARCTION 12/01/2019 WILL CHILDS MD Ot I48. 0 PAROXYSMAL ATRIAL FIBRILLATION 12/01/2019 WILL CHILDS MD Ot I48. 91 UNSPECIFIED ATRIAL FIBRILLATION 12/01/2019 WILL CHILDS MD Ot J30. 2 OTHER [...] Z96.653 PRESENCE OF ARTIFICIAL KNEE JOINT, BILAT 12/15/2019 RICHIE CESPEDES MD Ot F41. 9 ANXIETY DISORDER, UNSPECIFIED 12/15/2019 CESPEDES MD, RICHIE D Ot G20 PARKINSON'S DISEASE 12/15/2019 COY PINO, RICHIE Bell Ot G89. 29 OTHER CHRONIC PAIN 12/15/2019 COY PINO, RICHIE Bell Ot I11. 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 10 ATHSCL HEART DISEASE OF [place] CORONARY 12/15/2019 RICHIE CESPEDES MD Ot I25. 2 OLD MYOCARDIAL INFARCTION 12/15/2019 RICHIE CESPEDES MD Ot I48. 0 PAROXYSMAL ATRIAL FIBRILLATION 12/15/2019 RICHIE CESPEDES MD Ot I49. 5 SICK SINUS SYNDROME 12/15/2019 RICHIE CESPEDES MD Ot I50. 31 ACUTE DIASTOLIC (CONGESTIVE) HEART FAILU 12/15/2019 RICHIE CESPEDES MD Ot M19. 91 PRIMARY OSTEOARTHRITIS, UNSPECIFIED SITE 12/15/2019 RICHIE CESPEDES MD Ot M54. 9 DORSALGIA, UNSPECIFIED 12/15/2019 RICHIE CESPEDES MD Ot R09. 02 HYPOXEMIA 12/15/2019 RICHIE CESPEDES MD Ot Z86. 73 PRSNL HX OF TIA (TIA), AND CEREB INFRC W 12/15/2019 RICHIE CESPEDES MD Ot Z87.440 PERSONAL HISTORY OF URINARY (TRACT) INFE 12/15/2019 RICHIE CESPEDES MD Ot Z87.891 PERSONAL HISTORY OF NICOTINE DEPENDENCE 12/15/2019 RICHIE CESPEDES MD Ot Z88. 2 ALLERGY STATUS TO SULFONAMIDES STATUS 12/15/2019 RICHIE CESPEDES MD Ot Z96.612 PRESENCE OF LEFT ARTIFICIAL SHOULDER ADAM 12/15/2019 RICHIE CESPEDES MD Ot Z96.653 PRESENCE OF ARTIFICIAL KNEE JOINT, BILAT 12/24/2019 SHERINE HARTLEY DO Ot M47.816 SPONDYLOSIS W/O MYELOPATHY OR RADICULOPA 12/24/2019 SHERINE HARTLEY DO Ot M51.26 OTHER INTERVERTEBRAL DISC DISPLACEMENT, Procedures Code Description Performed By Per formed On G0008 FLU ADMINISTRATION (MEDICARE ONLY) 04/06/2013 [id number] ME ASURE OF CARDIAC SAMPL PRESSURE, L H 01/21/2019 [id number] FL UOROSCOPY OF MULT COR ART USING L OSM 01/21/2019 [id number] FL UOROSCOPY OF LEFT HEART USING LOW OSMO 01/21/2019 [id number] FL UOROSCOPY OF ABDOMINAL AORTA USING LOW 01/21/2019 [id number] ME ASURE OF CARDIAC SAMPL PRESSURE, L H 07/05/2019 [id number] FL UOROSCOPY OF MULT COR ART USING L OSM 07/05/2019 [id number] FL UOROSCOPY OF LEFT HEART USING LOW OSMO 07/05/2019 [id number] FL UOROSCOPY OF THORACIC AORTA USING LOW [...] culture - 06/20/16 11:45 Bacterial urine culture [id number] NRG COLONY COUNT <10,000 NRG FTX;REPORTABLE SENSITIVITY [...] - 11/30/19 01:30 Bacterial blood culture NG [facility] Influenza virus A and B antigen detectio n - 11/30/19 01:38 FLU RESULT NEGATIVE FOR INFLUENZA A AND B ANTIGENS BY IA [facility] Coronavirus SARS-CoV-2 SO 2019 0 01:38 Coronavirus Ab [Units/volume] in Serum Negative Negative Bacterial blood culture - 11/30/19 01:50 QUANTITY OF GROWTH Isolated [facility] Bacterial blood culture [id number] [facility] SUSCEPTIBILITY SUSCEPTIBILITY REPORTED 12-04-19,125 3 [facility] MRSA SCREEN SEE COMMENT NRG RML SENSITIVITY [...] culture - 11/30/19 04:38 Bacterial urine culture [id number] NRG COLONY COUNT >100,000/ML NRG SUSCEPTIBILITY SUSCEPTIBILITY [...] VLDL measurement (mass/ volume) 11 mg/dL 5-40 Complete urinalysis with reflex to cultu re - 12/14/19 20:34 Urine color determination YELLOW NRG Urine clarity determination CLEAR NR G Urine pH measurement by test strip 5.0 5-9 Specific gravity of urine by test strip >= 1.016-1.022 Urine protein assay by test strip, semi-quantitative NEGATIVE NEGATIVE Urine glucose detection by automated test strip NE GATIVE NEGATIVE Erythrocytes detection in urine sediment by light micr oscopy NEGATIVE NEGATIVE Urine ketones detection by automated test strip TR JAQUAN NEGATIVE Urine nitrite detection by test strip NEGATIVE NEGATIVE Urine total bilirubin detection by test strip NEGA TIVE NEGATIVE Urine urobilinogen measurement by automated test strip (mass/volume) 0.2 mg/dL < = 1.0 Urine leukocyte esterase detection by dipstick NEG ATIVE NEGATIVE Automated urine sediment erythrocyte cou nt by microscopy (number/high power field) NONE NRG Automated urine sediment leukocyte count by microscopy (number/high power field) [HPF] NRG Bacteria detection in urine sediment by light microsco py TRACE NRG Squamous epithelial cells detection in u rine sediment by light microscopy 2-5 NRG Crystals detection in urine sediment by light microsco py NONE NRG Casts detection in urine sediment by light microscopy PRESENT NRG Mucus detection in urine sediment by light microscopy SMALL NRG Complete urinalysis with reflex to culture CULTURE PENDING NRG Hyaline casts detection in urine sediment by light hieu roscopy RARE NRG Bacterial urine culture - 12/14/19 20:34 Bacterial urine culture [id number] NRG COLONY COUNT <10,000 NRG Complete blood count (CBC) with automate d white blood cell (WBC) differential - 12/14/19 20:50 Blood leukocytes automated count (number/volume) 8.1 10*3/uL 4.3-11.0 Blood erythrocytes automated count (number/volume) 4.17 10*6/uL 4.35-5.85 Venous blood hemoglobin measurement (mass/volume) 11.5 g/dL 11.5-16.0 Blood hematocrit (volume fraction) 37 % 35-52 Automated erythrocyte mean corpuscular volume 90 [ foz_us] 80-99 Automated erythrocyte mean corpuscular h emoglobin (mass per erythrocyte) 28 pg 25-34 Automated erythrocyte mean corpuscular h emoglobin concentration measurement (mass/volume) 31 g/dL 32-36 Automated erythrocyte distribution width ratio 16. 6 % 10.0- 14.5 Automated blood platelet count (count/volume) 412 10*3/uL 130-400 Automated blood platelet mean volume measurement 10.0 [foz_us] 7.4-10.4 Automated blood neutrophils/100 leukocytes 70 % 42-75 Automated blood lymphocytes/100 leukocytes 17 % 12-44 Blood monocytes/100 leukocytes 11 % 0-12 Automated blood eosinophils/100 leukocytes 1 % 0-10 Automated blood basophils/100 leukocytes 0 % 0-10 Blood neutrophils automated count (number/volume) 5.7 10*3 1.8-7.8 Blood lymphocytes automated count (number/volume) 1.4 10*3 1.0-4.0 Blood monocytes automated count (number/volume) 0. 9 10*3 0.0-1.0 Automated eosinophil count 0.1 10*3/uL 0 .0-0.3 Automated blood basophil count (count/volume) 0.0 10*3/uL 0.0-0.1 Comprehensive metabolic panel - 12/14/19 20:50 Serum or plasma sodium measurement (moles/volume) 140 mmol/L 135-145 Serum or plasma potassium measurement (moles/volume) 3.7 mmol/L 3.6-5.0 Serum or plasma chloride measurement (moles/volume) 101 mmol/L 98-107 Carbon dioxide 28 mmol/L 21-32 Serum or plasma anion gap determination (moles/volume) 11 mmol/L 5-14 Serum or plasma urea nitrogen measurement (mass/volume ) 30 mg/dL 7-18 Serum or plasma creatinine measurement (mass/volume) 0.95 mg/dL 0.60-1.30 Serum or plasma urea nitrogen/creatinine mass ratio 32 NRG Serum or plasma creatinine measurement w ith calculation of estimated glomerular filtration rate 56 NRG Serum or plasma glucose measurement (mass/volume) 101 mg/dL 70-105 Serum or plasma calcium measurement (mass/volume) 9.0 mg/dL 8.5-10.1 Serum or plasma total bilirubin measurement (mass/volu me) 0.3 mg/dL 0.1-1.0 Serum or plasma alkaline phosphatase kem surement (enzymatic activity/volume) 89 U/L 40-136 Serum or plasma aspartate aminotransfera se measurement (enzymatic activity/volume) 33 U/L 5-34 Serum or plasma alanine aminotransferase measurement (enzymatic activity/volume) 8 U/L 0-55 Serum or plasma protein measurement (mass/volume) 6.6 g/dL 6.4-8.2 Serum or plasma albumin measurement (mass/volume) 3.7 g/dL 3.2-4.5 CALCIUM CORRECTED 9.2 mg/dL 8.5-10.1 PT panel in platelet poor plasma by coag ulation assay - 12/14/19 20:50 Prothrombin time (PT) in platelet poor plasma by coagu lation assay 14.8 s 12.2-14.7 INR in platelet poor plasma or blood by coagulation as say 1.1 0.8-1.4 Activated partial thromboplastin time (a PTT) in platelet poor plasma bycoagulation assay - 12/14/19 20:50 Activated partial thromboplastin time (a PTT) in platelet poor plasma bycoagulation assay 34 s 24-35 Blood lactic acid measurement (moles/vol ume) - 12/14/19 20:50 Blood lactic acid measurement (moles/volume) 0.82 mmol/L 0.50-2.00 PROCALCITONIN (PCT) - 12/14/19 20:50 PROCALCITONIN (PCT) 0.06 ng/mL <0.10 Serum or plasma lithium measurement (mol es/volume) - 12/14/19 20:50 BNP PT 927.5 pg/mL <100.0 Serum or plasma C reactive protein measu rement (mass/volume) - 12/14/19 20:50 Serum or plasma C reactive protein measurement (mass/v olume) 0.87 mg/dL 0.00-0.50 Serum or plasma troponin i.cardiac measu rement (mass/volume) - 12/14/19 20:50 Serum or plasma troponin i.cardiac measurement (mass/v olume) < ng/mL <0.028 Bacterial blood culture - 12/14/19 20:50 Bacterial blood culture NG NRG Bacterial blood culture - 12/14/19 21:40 Bacterial blood culture NG NRG Complete blood count (CBC) with automate d white blood cell (WBC) differential - 12/15/19 03:38 Blood leukocytes automated count (number/volume) 8.5 10*3/uL 4.3-11.0 Blood erythrocytes automated count (number/volume) 4.19 10*6/uL 4.35-5.85 Venous blood hemoglobin measurement (mass/volume) 11.5 g/dL 11.5-16.0 Blood hematocrit (volume fraction) 37 % 35-52 Automated erythrocyte mean corpuscular volume 89 [ foz_us] 80-99 Automated erythrocyte mean corpuscular h emoglobin (mass per erythrocyte) 27 pg 25-34 Automated erythrocyte mean corpuscular h emoglobin concentration measurement (mass/volume) 31 g/dL 32-36 Automated erythrocyte distribution width ratio 16. 6 % 10.0- 14.5 Automated blood platelet count (count/volume) 410 10*3/uL 130-400 Automated blood platelet mean volume measurement 9.9 [foz_us] 7.4-10.4 Automated blood neutrophils/100 leukocytes 74 % 42-75 Automated blood lymphocytes/100 leukocytes 12 % 12-44 Blood monocytes/100 leukocytes 12 % 0-12 Automated blood eosinophils/100 leukocytes 2 % 0-10 Automated blood basophils/100 leukocytes 0 % 0-10 Blood neutrophils automated count (number/volume) 6.3 10*3 1.8-7.8 Blood lymphocytes automated count (number/volume) 1.0 10*3 1.0-4.0 Blood monocytes automated count (number/volume) 1. 0 10*3 0.0-1.0 Automated eosinophil count 0.1 10*3/uL 0 .0-0.3 Automated blood basophil count (count/volume) 0.0 10*3/uL 0.0-0.1 Comprehensive metabolic panel - 12/15/19 03:38 Serum or plasma sodium measurement (moles/volume) 143 mmol/L 135-145 Serum or plasma potassium measurement (moles/volume) 3.5 mmol/L 3.6-5.0 Serum or plasma chloride measurement (moles/volume) 100 mmol/L 98-107 Carbon dioxide 31 mmol/L 21-32 Serum or plasma anion gap determination (moles/volume) 12 mmol/L 5-14 Serum or plasma urea nitrogen measurement (mass/volume ) 23 mg/dL 7-18 Serum or plasma creatinine measurement (mass/volume) 0.89 mg/dL 0.60-1.30 Serum or plasma urea nitrogen/creatinine mass ratio 26 NRG Serum or plasma creatinine measurement w ith calculation of estimated glomerular filtration rate > NRG Serum or plasma glucose measurement (mass/volume) 93 mg/dL 70-105 Serum or plasma calcium measurement (mass/volume) 8.6 mg/dL 8.5-10.1 Serum or plasma total bilirubin measurement (mass/volu me) 0.4 mg/dL 0.1-1.0 Serum or plasma alkaline phosphatase kem surement (enzymatic activity/volume) 86 U/L 40-136 Serum or plasma aspartate aminotransfera se measurement (enzymatic activity/volume) 30 U/L 5-34 Serum or plasma alanine aminotransferase measurement (enzymatic activity/volume) 10 U/L 0-55 Serum or plasma protein measurement (mass/volume) 6.4 g/dL 6.4-8.2 Serum or plasma albumin measurement (mass/volume) 3.6 g/dL 3.2-4.5 CALCIUM CORRECTED 8.9 mg/dL 8.5-10.1 Encounters ACCT No. Visit Date/Time Discharge Status Pt. Type Provider Facility Loc./Unit Complaint [id number] 06/08/2014 09:49:53 ACT Document Registration [id number] 04/06/2013 16:39:00 04/06/2013 23:59: 59 CLS Outpatient TARA FOSTER DO [id number] 12/14/2019 23:32:00 17:55:00 DIS Outpatient RICHIE CESPEDES MD [facility] CSD ACUTE HEART FAILURE [id number] 11/30/2019 04:45:00 14:30:00 DIS Inpatient WILL CHILDS MD [facility] 4TH SEPSIS,HYPOXIA,CP [id number] 11/26/2019 13:38:00 23:59:59 CLS Outpatient NAEEM SHERINE BLAKE [facility] RAD BACK PAIN [id number] 11/16/2019 09:24:00 09:30:00 DIS Inpatient KRISS MORROW MD [facility] ICU AFIB W RVR [id number] 07/04/2019 12:35:00 13:25:00 DIS Inpatient NAPOLEON GALLEGOS MD [facility] 4TH CHEST PAIN,ELEV ATED TROPONIN,HYPERTENSION,HYPOXIA [id number] 01/20/2019 11:42:00 16:40:00 DIS Inpatient WILL CHILDS MD [facility] 4TH AFIB W RVR,CP [id number] 12/13/2018 22:30:00 01:59:00 DIS Emergency VAIBHAV GILBERTO BLAKE [facility] ER RT ARM INJURY [id number] 11/26/2018 08:03:00 23:59:59 CLS Outpatient SHREE DELVALLE MD [facility] RAD ABN MAMMO [id number] 10/17/2018 11:53:00 23:59:59 CLS Outpatient OSMEL LINDA DC [facility] RAD ACUTE LOW BACK PAIN [id number] 06/19/2018 14:33:00 019 23:59:59 CLS Outpatient SHREE DELVALLE MD [facility] RAD SCREENING [id number] 04/03/2017 10:15:00 23:59:59 CLS Preadmit OTHER, UNLISTED [facility] RAD SCREENING [id number] 06/20/2016 14:25:00 14:37:00 DIS Inpatient WILLIE BLAKEFLORENCIA [facility] ICU CVA UTI [id number] 05/22/2016 13:39:00 23:59:59 CLS Outpatient CARLA HIRSCH APRN [facility] RAD TREMORS [id number] 07/28/2015 10:50:00 23:59:59 CLS Outpatient ROULA MATAMOROS MD, [facility] RAD SCREENING [id number] 06/08/2014 09:49:00 014 23:59:59 CLS Outpatient ADAM JON [facility] RAD SCREENING [id number] 10/02/2013 12:41:00 014 23:59:59 CLS Outpatient [id number] 07/17/2013 11:18:00 014 23:59:59 CLS Outpatient NAPOLEON GALLEGOS MD [facility] RAD SCREENING,KYPHO SEOLOSIS [id number] 05/25/2013 14:26:00 013 23:59:59 CLS Outpatient NAPOLEON GALLEGOS MD [facility] RAD SCREENING [id number] 12/30/2019 09:33:[address] Outpatient FANNIE PINO, ESTRELLA Smith [facility] CATH PAF,AF MANAGEMENT [id number] 06/08/2014 09:48:00 Document Registration [id number] 07/09/2012 07:55:00 Document Registration [id number] 05/14/2012 15:02:00 Document Registration [id number] 01/10/2012 10:34:00 Document Registration [id number] 01/09/2012 14:20:00 Document Registration [id number] 09/20/2011 10:45:00 Document Registration [id number] 05/07/2011 08:48:00 Document Registration [id number] 05/05/2010 09:32:00 Document Registration [id number] 05/04/2009 13:33:00 Document Registration [id number] 01/12/2009 13:36:00 Document Registration [id number] 12/20/2008 09:09:00 Document Registration
--- OUTSIDE RECORDS SUMMARY | 2019-12-30 10:06 | XMS REPORT ---
Author Author Tessa Lang Doctor Organization [facility] Address Unknown Phone Unavailable Care Team Providers Care Pulverizer Feeder Name Role Phone Migration, Doctor Unavailable Unavailable PROBLEMS Type Condition ICD9-CM Code TVP71-XH Code Onset Dates Condition S tatus SNOMED Code Problem ZOSTAVAX DX V05.8 Active 00023968 Problem Need for prophylactic vaccination and inoculation, Influen za V04.81 Active [id number] ALLERGIES No Information ENCOUNTERS Encounter Location Date Diagnosis [place] [address] [place] [phone] Mar, [facility] [address] [place] [phone] Mar, [place] [id number] [place] [phone] October, [facility] [address] [place] [id number] [place] [phone] October, IMMUNIZATIONS No Known Immunizations SOCIAL HISTORY Never Assessed REASON FOR VISIT PLAN OF CARE VITAL SIGNS MEDICATIONS Unknown Medications RESULTS No Results PROCEDURES Procedure Date Ordered Result Body Site ADMN FLU VAC NO FEE SCHED SAME DAY Apr 06, 2013 INSTRUCTIONS MEDICATIONS ADMINISTERED No Known Medications
--- OUTSIDE RECORDS SUMMARY | 2019-12-30 10:06 | XMS REPORT ---
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 [facility] [employer] [place] Medium Address [address] [address] Care Team Providers Care Phytochemistry Professor Name Role Phone CARLA HIRSCH BIANCA Unavailable [...] MACEY PINO, KING Rhoades Unavailable Unavailable ROSY PION, NAPOLEON Denis Unavailable Unavailable ROSY PINO, NAPOLEON Denis Unavailable Unavailable CRISTHIAN PINO, KRISS Denis Unavailable Unavailable OSMEL PINON MD Unavailable Unavailable NAEEM BLAKE, SHERINE M Unavailable Unavailable AMADEO PINO, WILL Denis Unavailable Unavailable COY PINO, RICHIE Bell Unavailable Unavailable COY PINO, RICHIE Bell Unavailable Unavailable Migration, Doctor Unavailable Unavailable Unavailable Unavailable Unavailable Unavailable Unavailable Unavailable Allergies Allergy Reported Allergen(s) Allergy Type Date of Reaction(s) Care Facility Classificati Onset Provider on Sulfonamides Sulfonamides (Antibiotic) Drug Allergy 12-21-2008 fior Osborne (antibiotic) ROSY PINO Available (22 sources) ([id number]) Encounters Encounter Date Encounter Type Encounter Diagnosis Care Provider Facility Start: Evaluation and RICHIE CESPEDES MD [facility] Via [facility] is 12-14-2019 management of [facility] inpatient End: 12-15-2019 Start: Patient encounter RICHIE CESPEDES MD [facility] Via [facility] 12-14-2019 procedure [facility] End: 12-15-2019 Start: Evaluation and WILL CHILDS MD [facility] is 11-30-2019 management of [facility] inpatient End: 12-01-2019 Start: Emergency department [facility] 11-29-2019 patient visit [facility] Start: Patient encounter SHERINE HARTLEY DO [facility] 11-26-2019 procedure [facility] Start: Evaluation and KRISS MORROW MD [facility] 11-16-2019 management of [facility] inpatient End: 11-17-2019 Start: Patient encounter KRISS MORROW MD [facility] 11-16-2019 procedure [facility] End: 11-17-2019 Start: Emergency department OSMEL PINON MD [facility] 11-16-2019 patient visit [facility] Start: Evaluation and NAPOLEON GALLEGOS [facility] 07-04-2019 management of [facility] inpatient End: 07-06-2019 Start: Patient encounter NAPOLEON GALLEGOS MD [facility] V [facility] 07-04-2019 [facility] ([id number]) End: 07-06-2019 Start: Emergency department KING CHOUDHURY MD V [facility] 07-04-2019 patient visit [facility] ([id number]) Start: Evaluation and WILL CHILDS MD [facility] Via [facility] 01-20-2019 management of [facility] inpatient ([id number]) End: 01-21-2019 Start: Patient encounter WILL CHILDS MD [facility] Via [facility] 01-20-2019 [facility] ([id number]) End: 01-21-2019 Start: Emergency department BO KEENAN [facility] 2019 patient visit [facility] ([id number]) Start: Emergency department GILBERTO VAIBHAV DO [facility] 12-13-2018 patient visit [facility] ([id number]) End: 12-14-2018 Start: Patient encounter GILBERTO VAIBHAV DO [facility] is 12-13-2018 procedure [facility] ([id number]) Start: Emergency department GILBERTO VAIBHAV DO [facility] 12-13-2018 patient visit [facility] ([id number]) End: 12-13-2018 Start: Patient encounter SHREE DELVALLE MD [facility] 11-26-2018 procedure [facility] Start: Patient encounter OSMEL LINDA DC [facility] 10-17-2018 procedure [facility] ([id number]) Start: Patient encounter OSMEL LINDA [facility] 10-17-2018 procedure [facility] ([id number]) Start: Patient encounter SHREE DELVALLE MD Not Availa ble ([id number]) 06-19-2018 procedure Start: Evaluation and FLORENCIA TAPIA DO Not Available ([id number]) 06-20-2016 management of inpatient End: 06-21-2016 Start: Patient encounter FLORENCIA TAPIA DO Not Availa ble ([id number]) 06-20-2016 procedure End: 06-21-2016 Start: Emergency department OSMEL PINON MD Not Available ([id number]) 06-20-2016 patient visit Start: Patient encounter CARLA HIRSCH Not Availab le ([id number]) 05-22-2016 procedure Start: Patient encounter ADAM JON Not Availab le ([id number]) 06-08-2014 procedure Start: Patient encounter NAPOLEON GALLEGOS MD Not A vailable ([id number]) 07-17-2013 procedure Medical Equipment No Information Goals No Information Immunizations No Information Interventions No Information Medications The data below is from unstructured sources Unknown Medications No Known Medications Payers No Information Plan of Treatment No Information Problems Active Problems Problem Problem Date Last Documented Episodic/Chr Provider Classificati Recorded Date onic on Acute Cerebral infarction, unspecified Chronic FLORENCIA TAPIA cerebrovascu DO lar disease (5 sources) Acute Myocardial infarction type 2 Chronic WILL CHILDS myocardial MD infarction (11 sources) Allergic Allergy status to sulfonamides 12-25-2019 Episodic GILBERTO VAIBHAV DO reactions status (9 sources) Anxiety Generalized anxiety disorder ; 11-18-2019 Chronic FLORENCIA TAPIA disorders Translations: [Anxiety disorder, DO (24 sources) unspecified] Cancer of Malignant neoplasm of breast Chronic ADAM JON breast (female), unspecified (1 source) Cardiac Unspecified atrial fibrillation ; 11-18-2019 Chron ic WILL CHILDS dysrhythmias Translations: [Paroxysmal atrial (21 sources) fibrillation] Cardiac Bradycardia, unspecified 12-25-2019 Episodic J JEFERSON CHILDS dysrhythmias (1 source) Chronic Emphysema, unspecified Chronic ALENA MCLEOD obstructive ROSY PINO pulmonary disease and bronchiectas is (7 sources) Congestive Acute diastolic (congestive) heart 12-17-2019 Cripple Chaser wicho NAPOLEON heart failure ROSY PINO failure; nonhypertens steve (10 sources) Coronary Atherosclerotic heart disease of 11-18-2019 Moses CHILDS atherosclero [place] coronary artery without MD sis and angina pectoris ; Translati ons: other heart [Old myocardial infarction] disease (32 sources) Disorders of Hyperlipidemia, unspecified 11-18-2019 Chronic FLORENCIA TAPIA lipid DO metabolism (19 sources) E Codes: Fall on same level from slipping, Episodic GILBERTO VAIBHAV DO Fall tripping and stumbling with out (5 sources) subsequent striking against object, initial encounter E Codes: Bathroom of unspecified Episodic GILBERTO VAIBHAV DO Place of non-institutional (private) occurrence residence single-family (pr ivate) (5 sources) house as the place of occur rence of the external cause Essential Essential (primary) hypertension 11-18-2019 Chroni olga FLORENCIA TAPIA hypertension DO (24 sources) Fracture of Unspecified fracture of shaft of Episodic GILBERTO VAIBHAV DO upper limb humerus, right arm, initial (5 sources) encounter for closed fractu re Genitourinar Personal history of urinary (tract) 12-17-2019 Ep isodic RICHIE COY y symptoms infections MD and ill-defined conditions (3 sources) Hypertension Hypertensive heart disease with 12-17-2019 Chroni olga NAPOLEON with heart failure ROSY PINO complication s and secondary hypertension (10 sources) Nonspecific Other chest pain ; Translations: 12-01-2019 Episod ic WILL CHILDS chest pain [Chest pain, unspecified] (4 sources) Occlusion or Occlusion and stenosis of 11-18-2019 Chronic KRISS CRISTHIAN stenosis of unspecified carotid artery precerebral arteries (7 sources) Osteoarthrit Primary osteoarthritis, unspecified 11-18-2019 Ch mendez CHILDS is site MD (21 sources) Osteoporosis Age-related osteoporosis without Chronic NAPOLEON (7 sources) current pathological fracture PORSHA GREENBERG MD Other Other forms of scoliosis, lumbar Chronic OSMEL MADDI acquired region DC deformities (1 source) Other Scoliosis, unspecified Chronic KATHL EEN acquired ROSY PION deformities (7 sources) 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 Episodic GILBERTO VAIBHAV DO aftercare (12 sources) 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 11-18-2019 Episodic NAPOLEON aftercare anticoagulants ROSY PINO (14 sources) Other Personal history of transient 11-18-2019 Episodic GILBERTO VAIBHAV DO circulatory ischemic attack (TIA), and cerebral disease infarction without residual (21 sources) deficits Other Hypotension, unspecified 11-18-2019 Episodic K ATELYN CRISTHIAN circulatory MD disease (7 sources) Other Presence of artificial knee joint, 11-18-2019 Cripple Chaser wicoh GILBERTO VAIBHAV DO connective bilateral tissue disease (26 sources) Other Presence of left artificial hip Chronic GILBERTO VAIBHAV DO connective joint tissue disease (5 sources) Other Presence of left artificial 11-18-2019 Chronic WILL AMADEO connective shoulder joint MD tissue disease (21 sources) Other Presence of right artificial Chronic NAPOLEON connective shoulder joint SANDNESS MD tissue disease (7 sources) Other Unspecified injury of right Episodic GILBERTO VAIBHAV DO injuries and shoulder and upper arm, ini tial conditions encounter due to external causes (5 sources) Other lower Hypoxemia 12-01-2019 Episodic WILL CHILDS respiratory MD disease (5 sources) Other Other chronic pain 12-17-2019 Chronic RICHIE CA RLSON nervous MD system disorders (3 sources) Other Tremor, unspecified 12-01-2019 Episodic CARLA SNOOK nervous system disorders (10 sources) Other Encounter for screening mammogram 11-06-2019 Episo salma JON screening for malignant neoplasm of b reast ; for Translations: [Screening ma mmogram suspected for high-risk patient] conditions (not mental disorders or infectious disease) (13 sources) Other upper Other seasonal allergic rhinitis 12-01-2019 Chroni c WILL CHILDS respiratory MD disease (15 sources) Paralysis Hemiplegia, unspecified affecting Chronic FLORENCIA TAPIA (5 sources) left nondominant side DO Parkinson`s Parkinson's disease 11-18-2019 Chronic WILL CHILDS disease (18 sources) Peripheral Atherosclerosis of renal artery ; Chronic WILL CHILDS and visceral Translations: [ATHEROSCLEROSIS OF M D atherosclero AORTA] sis (8 sources) Residual Acquired absence of both cervix and Episodic GILBERTO VAIBHAV DO codes; uterus unclassified (5 sources) Residual Acquired absence of other organs Episodic GILBERTO VAIBHAV DO codes; unclassified (5 sources) Screening Personal history of nicotine 11-18-2019 Episodic GILBERTO VAIBHAV DO and history dependence of mental health and substance abuse codes (26 sources) Septicemia Sepsis, unspecified organism ; 12-01-2019 Episodic WILL CHILDS (except in Translations: [Sepsis due to MD labor) Escherichia coli [E. coli]] (2 sources) Spondylosis; Spondylosis without myelopathy or 11-30-2019 Cripple Chaser wicho OSMELASAF LINDA intervertebr radiculopathy, lumbosacral region ; DC al disc Translations: [Spondylosis without disorders; myelopathy or radiculopathy , lumbar other back region] problems (7 sources) Spondylosis; Dorsalgia, unspecified 11-18-2019 Episodic FRANKIE CHILDS intervertimanr al disc disorders; other back problems (21 sources) Urinary Urinary tract infection, site not 12-01-2019 Episo dic FLORENCIA TAPIA tract specified DO infections (7 sources) Past or Other Problems Problem Problem Date Last Documented Episodic/Chr Provider Classificati Recorded Date onic on Fluid and Hypokalemia Episodic WILL CHILDS electrolyte disorders (7 sources) Other bone Disorder of bone and cartilage, Episodic NAPOLEON disease and unspecified ORSY PINO musculoskele lashon deformities (1 source) Other Facial weakness Episodic FLORENCIA TAPIA connective DO tissue disease (5 sources) Other Wedge compression fracture of Episodic OSMLE MADDI fractures unspecified lumbar vertebra, DC (1 source) initial encounter for close d fracture 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 nervous MD system disorders (7 sources) Procedures Date Procedure Procedure Detail Performing Cl inician Start: FLUOROSCOPY OF NAPOLEON Bell 07-05-2019 LEFT HEART USING LOW OSMO Start: FLUOROSCOPY OF NAPOLEON Bell 07-05-2019 MULT COR ART USING L OSM Start: FLUOROSCOPY OF NAPOLEON Bell 07-05-2019 THORACIC AORTA USING LOW Start: MEASURE OF CARDIAC NAPOLEON GALLEGOS MD 07-05-2019 SAMPL PRESSURE, L H Start: FLUOROSCOPY OF WILL CHILDS MD 01-21-2019 ABDOMINAL AORTA USING LOW Start: FLUOROSCOPY OF WILL CHILDS MD 01-21-2019 LEFT HEART USING LOW OSMO Start: FLUOROSCOPY OF WILL CHILDS MD 01-21-2019 MULT COR ART USING L OSM Start: MEASURE OF CARDIAC WILL CHILDS MD 01-21-2019 SAMPL PRESSURE, L H Results Test Name Value Interpreta Reference Facilit Date tion Range y Time laboratory on 2019-12-14 Bacteria identified NG Invalid PENDING Cx Nom (Bld) Interpreta LOCATIO 020 tion Code N [facility] 16:50-0 ([id number]) 400 laboratory on 2019-12-01 Cholesterol 103 mg/dL < 200 PENDING [Mass/Vol] mg/dL [facility] 020 N [facility] 00:10-0 ([id number]) 400 Cholesterol in HDL 49 mg/dL Negative 40-60 PENDING 11-15 6-2 [Mass/Vol] mg/dL LOC[facility]IO 020 N [facility] 00:10-0 ([id number]) 400 Cholesterol in LDL 39 mg/dL Negative 1-129 PENDING 11-15 6-2 [Mass/Vol] mg/dL LOCATIO 020 N [facility] 00:10-0 ([id number]) 400 Cholesterol in VLDL 11 mg/dL Negative 5-40 mg/dL PENDING [Mass/Vol] LOCATIO 020 N [facility] 00:10-0 ([id number]) 400 Triglyceride 53 mg/dL Negative <150 mg/dL PENDING [Mass/Vol] LOC[facility] 020 N [facility] 00:10-0 ([id number]) 400 not yet categorized on 2019-11-30 COLONY COUNT >100,000/ML PENDING LOCATIO 020 N [facility] 00:38-0 ([id number]) 400 RAPID ID [id number] REPORTED BY [facility] 11/30 07:15 PENDING LOCATIO 020 N [facility] 00:38-0 ([id number]) 400 laboratory on 2019-11-30 Bacteria identified [id number] PENDING Cx Nom (U) [facility] 020 N [facility] 00:38-0 ([id number]) 400 Bacteria identified [id number] PENDING Cx Nom (U) LOC[facility]IO 020 N [facility] 00:38-0 ([id number]) 400 Bacteria LM Ql LARGE Abnormal PENDING (Urine sed) LOC[facility] 020 N [facility] 00:38-0 ([id number]) 400 Bilirubin Ql (U) Negative NEGATIVE PENDING LOC[facility] 020 N [facility] 00:38-0 ([id number]) 400 Casts LM Ql (Urine NONE PENDING sed) [facility] 020 N [facility] 00:38-0 ([id number]) 400 Clarity (U) SL CLOUDY PENDING LOC[facility]IO 020 N [facility] 00:38-0 ([id number]) 400 Color (U) YELLOW PENDING LOC[facility]IO 020 N [facility] 00:38-0 ([id number]) 400 Crystals LM Ql NONE PENDING (Urine sed) LOC[facility]IO 020 N [facility] 00:38-0 (85049) 400 Epithelial 2-5 PENDING cells.squamous LM Ql LOCATIO 020 (Urine sed) N [facility] 00:38-0 (30101) 400 Glucose Auto test Negative NEGATIVE PENDING strip Ql (U) LOCATIO 020 N [facility] 00:38-0 ([id number]) 400 Ketones Auto test Negative NEGATIVE PENDING strip Ql (U) LOCATIO 020 N [facility] 00:38-0 ([id number]) 400 Leukocyte esterase 2+ Abnormal NEGATIVE PENDING 11-15 5-2 Test strip Ql (U) LOCATIO 020 N [facility] 00:38-0 (48762) 400 Mucus Ql (Urine sed) MODERATE Abnormal PENDING 11-29 LOCATIO 020 N [facility] 00:38-0 (72153) 400 Nitrite Ql (U) Positive Abnormal NEGATIVE PENDING LOCATIO 020 N [facility] 00:38-0 (57260) 400 pH (U) 6.0 [pH] 5-9 PENDING LOCATIO 020 N [facility] 00:38-0 (42739) 400 Protein Ql (U) 1+ Abnormal NEGATIVE PENDING LOCATIO 020 N [facility] 00:38-0 ([id number]) 400 RBC LM.HPF (Urine Abnormal PENDING sed) [#/Area] LOCATIO 020 N [facility] 00:38-0 ([id number]) 400 RBC Ql (U) 2+ Abnormal NEGATIVE PENDING LOCATIO 020 N [facility] 00:38-0 (45798) 400 Specific gravity (U) 1.025 Abnormal 1.016-1.02 PENDING 0 11-29-2 [Rel density] 2 LOCATIO 020 N [facility] 00:38-0 ([id number]) 400 Urobilinogen (U) 0.2 mg/dL < = 1.0 PENDING 2 [Mass/Vol] mg/dL LOCATIO 020 N [facility] 00:38-0 (44361) 400 WBC LM.HPF (Urine Abnormal PENDING sed) [#/Area] [address] 00:38-0 ([id number]) 400 not yet categorized on 2019-11-29 FLU RESULT Negative PENDING [address] 21:38-0 ([id number]) 400 PROCALCITONIN (PCT) 0.35 High <0.10 PENDING ng/mL LOC[address] 21:30-0 (00283) 400 laboratory on 2019-11-29 Albumin [Mass/Vol] 3.7 g/dL Negative 3.2-4.5 PENDING - 4-2 g/dL [address] 21:30-0 (28087) 400 ALP [Catalytic 72 U/L Negative 40-136 U/L PENDING activity/Vol] [address] 21:30-0 (77036) 400 ALT [Catalytic 8 U/L Negative 0-55 U/L PENDING activity/Vol] [facility] [address] [place] [address] 21:30-0 (12324) 400 Anion gap 11 mmol/L Negative 5-14 PENDING [Moles/Vol] mmol/L [address] 21:30-0 ([id number]) 400 aPTT Coag (PPP) 32 s Negative 24-35 s PENDING [Time] [address] 21:30-0 (00306) 400 AST [Catalytic 13 U/L Negative 5-34 U/L PENDING activity/Vol] [facility] [address] [place] [address] 21:30-0 ([id number]) 400 Bacteria identified NG PENDING Cx Nom (Bld) [address] 21:30-0 ([id number]) 400 Band form 2 % PENDING neutrophils/100 WBC [facility] (Bld) [facility] 21:30-0 (57109) 400 Basophils (Bld) 0.0 10*3/uL Negative 0.0-0.1 PENDING 11-282 [#/Vol] 10*3/uL [facility] [address] [place] [address] 21:30-0 ([id number]) 400 Basophils/100 WBC 0 % Negative 0-10 % PENDING 06-14 -2 (Bld) LOCATIO 020 [facility] 21:30-0 ([id number]) 400 Bilirubin [Mass/Vol] 0.6 mg/dL Negative 0.1-1.0 PENDING 06 -14-2 mg/dL LOCATIO 020 [facility] 21:30-0 ([id number]) 400 Calcium [Mass/Vol] 8.6 mg/dL Negative 8.5-10.1 PENDING 06-1 4-2 mg/dL LOCATIO 020 [facility] 21:30-0 ([id number]) 400 Calcium [Mass/Vol] 8.8 mg/dL Negative 8.5-10.1 PENDING 06-1 4-2 mg/dL LOCATIO 020 [facility] 21:30-0 (10303) 400 Chloride [Moles/Vol] 106 mmol/L Negative 98-107 PENDING 0 6-14-2 mmol/[facility] 21:30-0 ([id number]) 400 CO2 [Moles/Vol] 24 mmol/L Negative 21-32 PENDING 06-14-2 mmol/L [facility] 21:30-0 (90040) 400 Coronavirus Ab Qn Negative Negative PENDING 06-14-2 (S) LOCATIO 020 [facility] 21:38-0 (31140) 400 Creatinine 0.85 mg/dL Negative 0.60-1.30 PENDING 06-14-2 [Mass/Vol] mg/dL LOCATIO 020 [facility] 21:30-0 ([id number]) 400 Creatinine and > PENDING 06-14-2 Glomerular LOCATIO 020 filtration [facility] 21:30-0 rate.predicted panel (11590) 400 - Serum, Plasma or Blood CRP [Mass/Vol] 4.28 High 0.00-0.50 PENDING 06-14-2 mg/dL LOCATIO 020 [facility] 21:30-0 ([id number]) 400 Eosinophils (Bld) 0.1 10*3/uL Negative 0.0-0.3 PENDING 06- 14-2 [#/Vol] 10*3/uL LOCATIO 020 [facility] 21:30-0 ([id number]) 400 Eosinophils/100 WBC 1 % Negative 0-10 % PENDING 14-2 (Bld) LOCATIO 020 [facility] 21:30-0 ([id number]) 400 Erythrocyte 16.1 % High 10.0-14.5 PENDING 14-2 distribution width % LOCATIO 020 (RBC) [Ratio] N [facility] 21:30-0 ([id number]) 400 Fibrin D-dimer FEU 0.37 Negative 0.00-0.49 PENDING 11-15 4-2 (PPP) [Mass/Vol] ug/mL LOCATIO 020 N S 21:30-0 (52883) 400 Glucose [Mass/Vol] 105 mg/dL Negative 70-105 PENDING - 4-2 mg/dL LOC[facility]IO 020 [facility] 21:30-0 ([id number]) 400 Hematocrit (Bld) 42 % Negative 35-52 % PENDING 11-28- 2 [Volume fraction] [facility]IO 020 [facility] 21:30-0 (67797) 400 Hemoglobin (Bld) 13.2 g/dL Negative 11.5-16.0 PENDING 11-28- 2 [Mass/Vol] g/dL LOC[facility]IO 020 [facility] 21:30-0 ([id number]) 400 INR Coag (Platelet 1.2 Negative 0.8-1.4 PENDING 11-15 4-2 poor plasma or LOCATIO 020 blood) [Relative N [facility] 21:30-0 time] ([id number]) 400 Lactate [Moles/Vol] 1.45 mmol/L Negative 0.50-2.00 PENDING 0 6-14-2 mmol/L LOC[facility]IO 020 [facility] 21:30-0 (16431) 400 Lymphocytes (Bld) 0.5 10*3/uL Low 1.0-4.0 PENDING -2 [#/Vol] 10*3 LOCATIO 020 N S 21:30-0 (16944) 400 Lymphocytes/100 WBC 4 % Low 12-44 % PENDING - 14-2 (Bld) LOCATIO 020 N S 21:30-0 ([id number]) 400 Lymphocytes/100 WBC 5 % PENDING 14-2 (Bld) LOCATIO 020 N S 21:30-0 ([id number]) 400 Magnesium [Mass/Vol] 1.9 mg/dL Negative 1.6-2.4 PENDING 06 -14-2 mg/dL [address] 21:30-0 (12844) 400 MCH (RBC) [Entitic 28 pg Negative 25-34 pg PENDING 06-1 4-2 mass] [address] 21:30-0 (45123) 400 MCHC (RBC) 32 g/dL Negative 32-36 g/dL PENDING 06-14-2 [Mass/Vol] [address] 21:30-0 (04427) 400 MCV (RBC) [Entitic 89 Negative 80-99 PENDING 06-1 4-2 vol] [foz_us] [address] 21:30-0 ([id number]) 400 Monocytes (Bld) 0.9 10*3/uL Negative 0.0-1.0 PENDING 06-14 -2 [#/Vol] 10*[address] 21:30-0 (05381) 400 Monocytes/100 WBC 7 % Negative 0-12 % PENDING 06-14 -2 (Bld) [address] 21:30-0 ([id number]) 400 Monocytes/100 WBC 4 % PENDING 06-14-2 (Bld) [address] 21:30-0 (44806) 400 Myoglobin [Mass/Vol] 75.3 ng/mL Negative 10.0-92.0 PENDING 0 6-14-2 ng/mL [address] 21:30-0 (61866) 400 Natriuretic peptide 419.8 pg/mL High <100.0 PENDING 0 6-14-2 B (Bld) [Mass/Vol] pg/mL [address] 21:30-0 (49376) 400 Neutrophils (Bld) 11.8 10*3/uL High 1.8-7.8 PENDING 06 -14-2 [#/Vol] 10*[address] 21:30-0 (75145) 400 Neutrophils/100 WBC 88 % High 42-75 % PENDING 06- 14-2 (Bld) [address] 21:30-0 (52849) 400 Platelet mean volume 10.4 Negative 7.4-10.4 PENDING 2 (Bld) [Entitic vol] [foz_us] LOC[facility]IO 020 N [facility] 21:30-0 ([id number]) 400 Platelets (Bld) 210 10*3/uL Negative 130-400 PENDING 11-282 [#/Vol] 10*3/uL LOC[facility]IO 020 N [facility] 21:30-0 (58572) 400 Potassium 3.7 mmol/L Negative 3.6-5.0 PENDING 11-28-2 [Moles/Vol] mmol/L LOCATIO 020 N [facility] 21:30-0 ([id number]) 400 Protein [Mass/Vol] 6.5 g/dL Negative 6.4-8.2 PENDING - 4-2 g/dL LOC[facility]IO 020 N [facility] 21:30-0 ([id number]) 400 PT Coag (PPP) [Time] 15.9 s High 12.2-14.7 PENDING -2 s LOCATIO 020 N [facility] 21:30-0 (36037) 400 RBC (Bld) [#/Vol] 4.69 10*6/uL Negative 4.35-5.85 PENDING 2 10*6/uL LOC[facility]IO 020 N [facility] 21:30-0 ([id number]) 400 RBC morphology NORMAL PENDING finding Nom (Bld) LOC[facility]IO 020 N [facility] 21:30-0 ([id number]) 400 Segmented 89 % PENDING neutrophils/100 WBC LOC[facility]IO 020 (Bld) N [facility] 21:30-0 (52422) 400 Sodium [Moles/Vol] 141 mmol/L Negative 135-145 PENDING -2 mmol/L LOCATIO 020 N [facility] 21:30-0 (07338) 400 Troponin I.cardiac ng/mL Negative <0.028 PENDING -1 4-2 [Mass/Vol] ng/mL LOCATIO 020 N [facility] 21:30-0 (68412) 400 Urea nitrogen 22 mg/dL High 7-18 mg/dL PENDING 11-28-2 [Mass/Vol] LOCATIO 020 N [facility] 21:30-0 (99103) 400 Urea 26 mg/mg PENDING 06-14-2 nitrogen/Creatinine LOCATIO 020 [Mass ratio] N [facility] 21:30-0 (87016) 400 WBC (Bld) [#/Vol] 13.3 10*3/uL High 4.3-11.0 PENDING 10*3/uL LOC[facility]IO 020 [facility] 21:30-0 ([id number]) 400 not yet categorized on 2019-11-17 NAME: MJ KRAMER ~MED REC#: [id number] Invalid PENDING ~ ~PHYSICIAN: ESTRELLA Ford MD ~Subjective ~Date Seen by roni Bee [facility] Provider: Nov 17, 2019 ~Time Seen by Provider: (000 00) 08:38 ~Subjective/Events-last exam ~Pat ient was seen and evaluated, converted to si nus rhythm on amiodarone. Doing well ~Revie w of Systems ~General: No Chills, No Night S weats, No Fatigue, No Malaise, No Appetite, No Other ~HEENT: No Head Aches, No Visual Change s, No Eye Pain, No Ear Pain, No Dysphasia, No Sinus ~Congestion, No Post Nasal Drip, No Sor e Throat, No Other ~Pulmonary: No Dyspnea , No Cough, No Pleuritic Chest Pain, No Othe r ~Cardiovascular: No: Chest Pain, Palpitations, Orthopnea, Paroxysmal Noc . Dyspnea, Edema, Lt ~Headedness, Other ~ ~Objective-Cardiology ~Exam ~Last Set o f Vital Signs ~ ~Vital Signs ~ ~ ~ 11/17/19 11/17/19 11/17/19 ~ ~ 06:00 08:00 08:25 ~ ~ Temp 37.1 ~ ~Pulse 55 ~ ~Resp 17 ~ ~B/P (MAP ) 146/83 (104) ~ ~Pulse Ox 93 ~ ~O2 Deliv jack Nasal Cannula ~ ~O2 Flow Rate 1.00 ~ ~Capillary Refill : Less Than 3 Seconds ~I O ~ ~ ~ ~Intake and Output ~ ~ 11/17/19 ~ ~ 00:00 ~ ~Intake Total 3059 ml ~ ~Output Total 1100 ml ~ ~Balance 1959 ml ~ ~ ~ ~Intake Ora l 1200 ml ~ ~IV Total 1859 ml ~ ~Output Urine Total 1100 ml ~ ~# Voids 1 ~ ~# Bowel Movemen ts 1 ~ ~Daily Weight Change Yes, 2-13 lbs ~ ~ ~General: Alert, Oriented X3, Cooperati ve ~HEENT: Atraumatic, PERRLA ~Neck: Suppl e, No JVD, No Thyromegaly ~Lungs: Clear to Auscultation, Normal Air Movement ~Hear t: Regular Rate, Normal S1, Normal S2, No Murmurs ~Abdomen: Normal Bowel Sounds, Soft, No Tenderness, No Hepatosplenomegaly, N o Masses ~Extremities: No Clubbing, No Cyanosis, No Edema, Normal Pulses, No Tenderness/Swelling ~Skin: No Rashes, N o Breakdown, No Significant Lesion ~Neuro : Normal Gait, Normal Speech, Strength at 5/5 X4 Ext, Normal Tone, Sensation Intact ~Psych/Mental Status: Mental Status NL, Mood NL ~ ~Results ~Lab ~Laboratory Tests ~ 02:45 ~ ~ ~ ~ ~A/P-Cardiology ~Admissio n Diagnosis ~Paroxysmal atrial fibrillati on ~Coronary artery disease ~Hypotension ~Hyperlipidemia ~ ~Assessment/Plan ~Paroxysmal atrial fibrillation, has be en maintained on Eliquis and metoprolol, w ent back to atrial ~fibrillation with rapid ventricular response, could not tolerat e Cardizem due to hypotension. S~tarted o n sotalol, noted to have prolonged QT int erval subsequently it was stopped and switche d to a~miodarone, converted to sinus rhythm on amiodarone drip. I will discharge home with loading dose am~iodarone and arrange fo r follow-up as an outpatient ~ ~Coronary artery disease, had cardiac catheterization do ne in January 2019 showing tortuous carotid ~s ystem with nonobstructive disease, the proced ure was repeated by Dr. Khalil in June 18 after ~having elevated troponin and als o showed tortuous coronary with nonobstru ctive disease. We'll ~continue monitoring. ~ ~History of labile hypertension, has be en having elevated blood pressure at home. Blood pressure is ~better controlled. Continu e to monitor ~ ~History of hyperlipidemia, m onitor lipids, continue on lovastatin ~ ~Histo ry of Dick's palsy ~ ~History of Parkinson's. ~ ~Nonobstructive carotid artery stenosis per carotid duplex done 2016. We'll reevalu ate carotid ~duplex today. ~ ~Clinical Qual ity Measures ~AMI/AHF: ~ASA po Prior to arr ival: Yes ~ ~DVT/VTE Risk/Contraindication: ~ Risk Factor Score Per Nursin ~RFS Level Per Nursing on Admit: 2=Moderate ~ ~ ~ ~ESTRELLA GRECO MD Nov 17, 2019 08:39 ~ ~ ~<Created by ESTRELLA GRECO MD> ~<Electronically signed by ESTRELLA SAMSON MD> 11/17/19 1252 ~ ~ laboratory on 2019-11-16 Albumin [Mass/Vol] 4.0 g/dL Negative 3.2-4.5 PENDING 06-0 1-2 g/dL [facility] 03:40-0 ([id number]) 400 ALP [Catalytic 73 U/L Negative 40-136 U/L PENDING activity/Vol] [facility] 03:40-0 ([id number]) 400 ALT [Catalytic U/L Negative 0-55 U/L PENDING activity/Vol] [facility] 03:40-0 ([id number]) 400 Anion gap 10 mmol/L Negative 5-14 PENDING 11-15-2 [Moles/Vol] mmol/L [facility] 03:40-0 ([id number]) 400 Anion gap 6 mmol/L Negative 5-14 PENDING 11-15-2 [Moles/Vol] mmol/L [facility] 22:45-0 ([id number]) 400 aPTT Coag (PPP) 29 s Negative 24-35 s PENDING [Time] [facility] 03:40-0 ([id number]) 400 AST [Catalytic 19 U/L Negative 5-34 U/L PENDING activity/Vol] [facility] 03:40-0 ([id number]) 400 Basophils (Bld) 0.0 10*3/uL Negative 0.0-0.1 PENDING 11-15 [#/Vol] 10*3/uL [facility] 03:40-0 ([id number]) 400 Basophils/100 WBC 0 % Negative 0-10 % PENDING 11-15 (Bld) [facility] 03:40-0 ([id number]) 400 Bilirubin [Mass/Vol] 0.4 mg/dL Negative 0.1-1.0 PENDING 06 -01-2 mg/dL [facility] 03:40-0 ([id number]) 400 Calcium [Mass/Vol] 9.1 mg/dL Negative 8.5-10.1 PENDING 06-0 1-2 mg/dL [facility] 03:40-0 ([id number]) 400 Calcium [Mass/Vol] 8.2 mg/dL Low 8.5-10.1 PENDING 06-0 1-2 mg/dL [facility] 22:45-0 ([id number]) 400 Chloride [Moles/Vol] 106 mmol/L Negative 98-107 PENDING 0 6-01-2 mmol/L [facility] 03:40-0 ([id number]) 400 Chloride [Moles/Vol] 112 mmol/L High 98-107 PENDING 0 6-01-2 mmol/L [facility] 020 [facility] 22:45-0 ([id number]) 400 Cholesterol 120 mg/dL < 200 PENDING 06-01-2 [Mass/Vol] mg/dL [facility] 020 [facility] 22:45-0 ([id number]) 400 Cholesterol in HDL 51 mg/dL Negative 40-60 PENDING 06-0 1-2 [Mass/Vol] mg/dL [facility] 020 [facility] 22:45-0 ([id number]) 400 Cholesterol in LDL 57 mg/dL Negative 1-129 PENDING 06-0 1-2 [Mass/Vol] mg/dL [facility] 020 [facility] 22:45-0 (03021) 400 Cholesterol in VLDL 13 mg/dL Negative 5-40 mg/dL PENDING 06 -01-2 [Mass/Vol] [facility] 020 [facility] 22:45-0 (44053) 400 CO2 [Moles/Vol] 26 mmol/L Negative 21-32 PENDING 06-01-2 mmol/L [facility] 03:40-0 ([id number]) 400 CO2 [Moles/Vol] 27 mmol/L Negative 21-32 PENDING 06-01-2 mmol/L [facility] 020 [facility] 22:45-0 ([id number]) 400 Creatinine 0.78 mg/dL Negative 0.60-1.30 PENDING [Mass/Vol] mg/dL [facility] 020 [facility] 03:40-0 ([id number]) 400 Creatinine 0.66 mg/dL Negative 0.60-1.30 PENDING [Mass/Vol] mg/dL [facility] 22:45-0 ([id number]) 400 Creatinine and > PENDING Glomerular [facility] 020 filtration N [facility] 03:40-0 rate.predicted panel ([id number]) 400 - Serum, Plasma or Blood Creatinine and > PENDING Glomerular [facility] 020 filtration N [facility] 22:45-0 rate.predicted panel ([id number]) 400 - Serum, Plasma or Blood Eosinophils (Bld) 0.4 10*3/uL High 0.0-0.3 PENDING 06-18 [#/Vol] 10*3/uL [facility] 020 [facility] 03:40-0 ([id number]) 400 Eosinophils/100 WBC 5 % Negative 0-10 % PENDING 06-18 (Bld) [facility]20 [facility] 03:40-0 ([id number]) 400 Erythrocyte 15.9 % High 10.0-14.5 PENDING distribution width % [facility] 0[facility] (RBC) [Ratio] [facility] 03:40-0 ([id number]) 400 Erythrocyte 16.0 % High 10.0-14.5 PENDING distribution width % [facility] 0[facility] (RBC) [Ratio] [facility] 22:45-0 ([id number]) 400 Glucose [Mass/Vol] 97 mg/dL Negative 70-105 PENDING 06-0 1-2 mg/dL [facility] 020 [facility] 03:40-0 ([id number]) 400 Glucose [Mass/Vol] 99 mg/dL Negative 70-105 PENDING 06-0 1-2 mg/dL [facility] 22:45-0 ([id number]) 400 Hematocrit (Bld) 46 % Negative 35-52 % PENDING [Volume fraction] [facility] 03:40-0 ([id number]) 400 Hematocrit (Bld) 38 % Negative 35-52 % PENDING [Volume fraction] [facility] 22:45-0 ([id number]) 400 Hemoglobin (Bld) 14.2 g/dL Negative 11.5-16.0 PENDING 11-15- 2 [Mass/Vol] g/dL [facility] 020 [facility] 03:40-0 ([id number]) 400 Hemoglobin (Bld) 11.6 g/dL Negative 11.5-16.0 PENDING 01- 2 [Mass/Vol] g/dL [facility] 22:45-0 ([id number]) 400 INR Coag (Platelet 1.0 Negative 0.8-1.4 PENDING 06-0 1-2 poor plasma or [facility] 020 blood) [Relative N [facility] 03:40-0 time] ([id number]) 400 Lymphocytes (Bld) 2.2 10*3/uL Negative 1.0-4.0 PENDING -2 [#/Vol] 10*3 [facility] 03:40-0 ([id number]) 400 Lymphocytes/100 WBC 32 % Negative 12-44 % PENDING -2 (Bld) [facility] 020 [facility] 03:40-0 ([id number]) 400 Magnesium [Mass/Vol] 2.1 mg/dL Negative 1.6-2.4 PENDING -01-2 mg/dL [facility] 03:40-0 ([id number]) 400 Magnesium [Mass/Vol] 1.7 mg/dL Negative 1.6-2.4 PENDING -01-2 mg/dL [facility] 020 [facility] 22:45-0 ([id number]) 400 MCH (RBC) [Entitic 28 pg Negative 25-34 pg PENDING 06-0 1-2 mass] [facility] 03:40-0 ([id number]) 400 MCH (RBC) [Entitic 27 pg Negative 25-34 pg PENDING 06-0 1-2 mass] [facility] 22:45-0 ([id number]) 400 MCHC (RBC) 31 g/dL Low 32-36 g/dL PENDING -01-2 [Mass/Vol] [facility] 03:40-0 ([id number]) 400 MCHC (RBC) 30 g/dL Low 32-36 g/dL PENDING 06-01-2 [Mass/Vol] [facility] 22:45-0 ([id number]) 400 MCV (RBC) [Entitic 89 Negative 80-99 PENDING 06-0 1-2 vol] [foz_us] [facility] 03:40-0 ([id number]) 400 MCV (RBC) [Entitic 90 Negative 80-99 PENDING 06-0 1-2 vol] [foz_us] [facility]20 [facility] 22:45-0 ([id number]) 400 Monocytes (Bld) 0.7 10*3/uL Negative 0.0-1.0 PENDING 11-15 [#/Vol] 10*3 [facility] 03:40-0 ([id number]) 400 Monocytes/100 WBC 10 % Negative 0-12 % PENDING 11-15 (Bld) [facility] 03:40-0 ([id number]) 400 MRSA isol Org Negative Invalid PENDING specific cx Ql (Unsp Interpreta [facility] spec) tion Code [facility] 06:13-0 ([id number]) 400 Myoglobin [Mass/Vol] 58.8 ng/mL Negative 10.0-92.0 PENDING 0 11-15-2 ng/mL [facility] 03:40-0 ([id number]) 400 Neutrophils (Bld) 3.6 10*3/uL Negative 1.8-7.8 PENDING 06-18 [#/Vol] 10*3 [facility] 03:40-0 (67392) 400 Neutrophils/100 WBC 52 % Negative 42-75 % PENDING 06-18 (Bld) [facility] [address] [place] [address] 03:40-0 ([id number]) 400 Phosphate [Mass/Vol] 3.0 mg/dL Negative 2.3-4.7 PENDING - mg/dL [facility] 020 [facility] 22:45-0 ([id number]) 400 Platelet mean volume 10.5 High 7.4-10.4 PENDING (Bld) [Entitic vol] [foz_us] [facility]20 [facility] 03:40-0 ([id number]) 400 Platelet mean volume 10.4 Negative 7.4-10.4 PENDING (Bld) [Entitic vol] [foz_us] [facility] 22:45-0 ([id number]) 400 Platelets (Bld) 270 10*3/uL Negative 130-400 PENDING 11-152 [#/Vol] 10*3/uL [facility] 03:40-0 ([id number]) 400 Platelets (Bld) 213 10*3/uL Negative 130-400 PENDING 11-15 [#/Vol] 10*3/uL [facility] 22:45-0 ([id number]) 400 Potassium 4.0 mmol/L Negative 3.6-5.0 PENDING [Moles/Vol] mmol/L [facility] 03:40-0 ([id number]) 400 Potassium 3.6 mmol/L Negative 3.6-5.0 PENDING [Moles/Vol] mmol/L [facility] 22:45-0 ([id number]) 400 Protein [Mass/Vol] 7.0 g/dL Negative 6.4-8.2 PENDING 06-0 1-2 g/dL [facility] 03:40-0 ([id number]) 400 PT Coag (PPP) [Time] 13.8 s Negative 12.2-14.7 PENDING -2 s [facility] 03:40-0 (46593) 400 RBC (Bld) [#/Vol] 5.12 10*6/uL Negative 4.35-5.85 PENDING 10*6/uL [facility] 03:40-0 ([id number]) 400 RBC (Bld) [#/Vol] 4.24 10*6/uL Low 4.35-5.85 PENDING 2 10*6/uL [facility] 22:45-0 ([id number]) 400 Sodium [Moles/Vol] 142 mmol/L Negative 135-145 PENDING -2 mmol/L [facility] 03:40-0 (53740) 400 Sodium [Moles/Vol] 145 mmol/L Negative 135-145 PENDING 06-18 mmol/L [facility] 22:45-0 ([id number]) 400 Triglyceride 64 mg/dL Negative <150 mg/dL PENDING [Mass/Vol] [facility] 020 N S 22:45-0 (26031) 400 Troponin I.cardiac ng/mL Negative <0.028 PENDING 1-2 [Mass/Vol] ng/mL [facility] 03:40-0 ([id number]) 400 Urea nitrogen 22 mg/dL High 7-18 mg/dL PENDING [Mass/Vol] [facility] 03:40-0 ([id number]) 400 Urea nitrogen 12 mg/dL Negative 7-18 mg/dL PENDING [Mass/Vol] [facility] 22:45-0 ([id number]) 400 Urea 28 mg/mg PENDING nitrogen/Creatinine [facility] 020 [Mass ratio] [facility] 03:40-0 (96394) 400 Urea 18 mg/mg PENDING nitrogen/Creatinine [facility] 020 [Mass ratio] [facility] 22:45-0 ([id number]) 400 WBC (Bld) [#/Vol] 6.9 10*3/uL Negative 4.3-11.0 PENDING 06-18 10*3/uL [facility] 03:40-0 ([id number]) 400 WBC (Bld) [#/Vol] 5.9 10*3/uL Negative 4.3-11.0 PENDING 06-18 10*3/uL [facility] 22:45-0 ([id number]) 400 Social History No Information Vital Signs No Information Functional Status No Information Mental Status No Information Urinalysis complete W Reflex Culture panel (U) 2019-11-30 Note Date & Note Facility Type 11-30-2019 CULTURE PENDING (L) culture already in progress PENDING LOCATION [facility] Urinalysis (48782) complete W Reflex Culture panel (U) Additional Source Comments This clinical document has been generated using [employer] software that has been certified by the Office of the National Coordinator for Health Information Technology (ONC 15.99.04.3023.Diam.31.00.0.786238) and the National Committee for Mail Manager (NCQA, as an eMeasure certified technology). FOR [...] BASED ON T HE PRIMARY CLINICAL RECORDS. [facility] [employer] [facility]. provides no warranty or guara ntee of the accuracy or completeness of information in this document.The followi information is based on time limited clinical information
[2019-12-30 10:10] VITALS: BP 152/83
--- NOTE | 2019-12-30 10:45 | NUR ---
lidocaine 1% 20 ml admin to l chest for linq implant
--- NOTE | 2019-12-30 11:23 | Implantation of Loop Monitor ---
Implant of Loop Monitior IMPLANTATION OF LOOP MONITOR REPORT DATE OF PROCEDURE: 12/30/19 PREOP DIAGNOSIS: Paroxysmal atrial fibrillation POSTOP DIAGNOSIS: Paroxysmal atrial fibrillation PROCEDURE DETAILS: The patient is a 84 female with history of paroxysmal atrial fibrillation requiring long-term surveillance. Therefore implantable loop recorder was discussed and agreed with the patient. Informed consent was taken. All risks and complications were discussed at length. The patient was draped and prepped in the usual sterile fashion. Local anesthesia was lidocaine, which was given in the substernal area close to the 4th intercostal space. Loop monitor [employer] serial number [id number] was implanted according to the protocol. Steri-Strips were placed at the end of the procedure. There were no complications and the patient tolerated the procedure well. The device was interrogated with a voltage of. ANESTHESIA: Local anesthesia with lidocaine. COMPLICATIONS: None CONTRAST/FLUOROSCOPY: None CONCLUSION: Successful implantation of loop recorder with no complication FINAL DIAGNOSIS: Paroxysmal atrial fibrillation Palpitation Hypertension Hyperlipidemia ESTRELLA GRECO MD Dec 30, 2019 11:23
== END | disposition home or self-care (01) ==
LOC: CATH 09:33
PROVIDERS: ATTEND Internal Medicine Cardiovascular Disease
DX: I48.0 Paroxysmal atrial fibrillation (principal); R00.2 Palpitations; I10 Essential (primary) hypertension; E78.5 Hyperlipidemia, unspecified
CPT/HCPCS: 33285 ×2; C1764

== ENCOUNTER → 2021-01-13 | Outpatient (CLI) | payer MEDICARE, OTHER ==
[~2021-01-13] MED LIST changes: -AMIO200T4 PO; +AMIO200T6 PO; +AMLO-250 PO; -AMLO5TAB9 PO; -CYAN500T62 PO; +CYAN500T8 PO; -LIDOCAINE 1% INJ 20 ML 20 ML VIAL ONE; -LISI-552 PO; -LISI10TA2 PO; +LISI10TA25 PO; +LISI20TA26 PO; -PANT40TA3 PO; +PANT40TA52 PO
--- NOTE | 2021-01-13 15:08 | Diagnostic Imaging Report ---
CLINICAL INDICATION: Patient with lower back pain, increasing. Patient had two surgeries prior to this. EXAM: MRI of the lumbar spine performed without IV contrast. Sequences include sagittal T2, sagittal T1, sagittal T2 fat-sat, and axial T2. COMPARISON: MRI of the lumbar spine without contrast dated 11/26/2019. FINDINGS: There is mild high T2 signal and low T1 signal involving the T12 vertebra with curvilinear low signal involving the upper endplate. There is roughly 40-50% anterior wedge compression deformity seen, and this may represent a subacute fracture given the marrow edema. There is no retropulsed component. Stable compression fracture deformities of the T11, L1, L2, L3, and inferior aspect of the L5 vertebrae. Stable kyphoplasty changes of the L1 vertebra. There are hypertrophic spurs throughout the lumbar spine and facet arthropathy. Laminectomy involving the L3 and L4 regions is seen. There is no hardware stabilization seen. The visualized portions of the distal thoracic spinal cord, conus medullaris, and cauda equina nerve roots are unremarkable. The conus medullaris tip is seen at the upper L1 vertebral body level. Besides postoperative changes, there is no other significant paraspinal soft tissue abnormality. T10-T11: Stable diffuse disc bulge with posterior disc spurs and bilateral facet arthropathy. There is opdg-dy-hxtrroal central canal narrowing. There is severe right neural foramen narrowing and moderate left neural foramen narrowing. T11-T12: Stable mild diffuse disc bulge and bilateral facet arthropathy. There is no significant central canal or neural foramen narrowing. There is again seen perineural cyst in the left T11-T12 neural foramen. T12-L1: There is a diffuse disc bulge with posterior spurs. There is severe right facet arthropathy/hypertrophy and mild left facet arthropathy. Small right subarticular disc herniation is seen. There is severe right neural foramen narrowing and ymvy-fx-xdicuoll left neural foramen narrowing. There is moderate central canal stenosis again seen. L1-L2: There is severe bilateral facet arthropathy and ligamentum flavum buckling. There is severe bilateral neural foramen narrowing. There is severe central canal stenosis which has not significantly changed. L2-L3: There is severe bilateral facet arthropathy/hypertrophy. Again seen bilateral facet arthropathy/hypertrophy. There is mild central canal stenosis. There is severe bilateral neural foramen narrowing. L3-L4: There is interval laminectomy at the L3-L4 level. There is decompression of the thecal sac with resolution of the previously seen severe central canal stenosis. Diffuse disc bulge is again seen. There is severe left neural foramen narrowing and qtxkwwob-sb-ooafga right neural foramen narrowing which has slightly progressed. L4-L5: There is a diffuse disc bulge with posterior disc herniation and severe loss of disc space height. There is severe bilateral facet arthropathy. Stable wece-cq-hkvwkanm central canal stenosis. There is stable tqookdbs-ma-ehxwad right neural foramen narrowing and severe left neural foramen narrowing. L5-S1: There is stable grade 1 anterolisthesis of L5 on S1. There is severe bilateral facet arthropathy. There is no significant central canal stenosis. There is no significant neural foramen narrowing. IMPRESSION: 1: There is interval development of a suspected subacute fracture involving the upper aspect of the T12 vertebra with a small amount of marrow edema seen. There is no retropulsed component. 2: There is interval laminectomy at the L3-L4 level with decompression of the previously seen central canal stenosis. 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 4: Stable chronic compression fracture deformities involving the T11, L1, L2, and L3 vertebrae and inferior aspect of the L5 vertebra. Again seen kyphoplasty changes of the L1 vertebra. Dictated by: Dictated on workstation # [id number]
== END ==
LOC: RAD 13:15
PROVIDERS: ATTEND Physician Assistant
DX: M48.54XA Collapsed vertebra, not elsewhere classified, thoracic region, initial encounter for fracture (principal); M48.56XA Collapsed vertebra, not elsewhere classified, lumbar region, initial encounter for fracture; M47.814 Spondylosis without myelopathy or radiculopathy, thoracic region; M47.815 Spondylosis without myelopathy or radiculopathy, thoracolumbar region; M47.26 Other spondylosis with radiculopathy, lumbar region; M51.24 Other intervertebral disc displacement, thoracic region; M51.25 Other intervertebral disc displacement, thoracolumbar region; M51.16 Intervertebral disc disorders with radiculopathy, lumbar region; M48.04 Spinal stenosis, thoracic region; M48.05 Spinal stenosis, thoracolumbar region; M48.061 Spinal stenosis, lumbar region without neurogenic claudication; M25.78 Osteophyte, vertebrae; Z98.890 Other specified postprocedural states
CPT/HCPCS: 72148

== ENCOUNTER → 2021-01-31 | Outpatient (CLI) | payer MEDICARE, OTHER | LOC: LABNPT 06:47 | PROVIDERS: ATTEND Orthopaedic Surgery | DX: Z01.812 Encounter for preprocedural laboratory examination (principal); Z20.822 Contact with and (suspected) exposure to COVID-19 | CPT/HCPCS: 87635 ==

== ENCOUNTER 2021-03-25 12:13 | Day surgery (SDC) | payer MEDICARE, OTHER ==
[~2021-03-25] VITALS: Ht 167 cm; Wt 54.0 kg
[2021-03-25] MEDS ORDERED: fentaNYL INJ 100 MCG/2 ML AMP IVP ONE ×3 (12:45→15:00)
[2021-03-25] MEDS ORDERED: NS IV 1000 ML 1,000 ML IV SCH (12:45)
--- NOTE | 2021-03-25 12:45 | ED Abdominal Pain ---
General Chief Complaint: Abdominal/GI Problems Stated Complaint: UTI/BACK PAIN Nursing Triage Note: EPIGASTRIC PAIN THAT RADIATES IN TO HER BACK X3 DAYS. DX WITH A BLADDER INFECTION AT URGENT CARE YESTERDAY. Source of Information: Patient, Family Exam Limitations: No Limitations History of Present Illness Date Seen by Provider: Mar 25, 2021 Time Seen by Provider: 12:44 Initial Comments To ER by private vehicle with reports of epigastric abdominal pain that radiates straight through to the mid back present for 3 days. She was seen at urgent care yesterday and diagnosed with a bladder infection. She was given a GI cocktail which did not alleviate her pain. Today she is only had some saltine crackers this morning. She had pizza last night which did not affect the pain. She does still have her gallbladder. Timing/Duration: 2-3 Days Severity/Quality: Severe Location: Epigastric Radiation: No Radiation Activities at Onset: None Associated Symptoms: Nausea/Vomiting Allergies and Home Medications Allergies Coded Allergies: Sulfa (Sulfonamide Antibiotics) (Verified Allergy, Unknown, hives, 11/16/19) Patient Home Medication List Home Medication List Reviewed: Yes Amiodarone HCl (Amiodarone HCl) 200 Mg Tablet, 200 MG PO BID, (Reported) Entered as Reported by: EDMAR FELIX on 11/30/19 1542 Apixaban (Eliquis) 2.5 Mg Tablet, 2.5 MG PO BID, (Reported) Entered as Reported by: EDMAR FELIX on 11/16/19 1435 Aspirin (Aspir 81) 81 Mg Tablet., 81 MG PO HS, (Reported) Entered as Reported by: EDMAR FELIX on 01/19/19 0941 Carbidopa/Levodopa (Carbidopa-Levodopa 25-100 Tab) 1 Each Tablet, 2 EA PO TID, (Reported) Entered as Reported by: EDMAR FELIX on 01/19/19 0933 Cyanocobalamin (Vitamin B-12) (Vitamin B-12) 1,000 Mcg Capsule, 2,000 MCG PO DAILY, (Reported) Entered as Reported by: EDMAR FELIX on 11/16/19 1438 Diazepam (Diazepam) 10 Mg Tablet, 10 MG PO HS PRN for ANXIETY, (Reported) Entered as Reported by: DOLORES LEMONS on 06/20/16 1310 Diclofenac Sodium (Diclofenac Sodium) 50 Mg Tablet.dr, 50 MG PO BID, (Reported) Entered as Reported by: DOLORES LEMONS on 06/20/16 1310 Docusate Sodium (Docusate Sodium) 100 Mg Capsule, 200 MG PO BID, (Reported) Entered as Reported by: DEACON MIXON on 06/20/16 1341 Hydrocodone/Acetaminophen (Hydrocodone/Acetaminophen 5 MG/325 MG TAB) 1 Each Tablet, 1 TAB PO Q4-6HR, (Reported) Entered as Reported by: MUSA SOSA on 12/15/19 0128 Lisinopril (Lisinopril) 20 Mg Tablet, 40 MG PO DAILY, (Reported) Entered as Reported by: EDMAR FELIX on 11/16/19 1435 Lovastatin (Lovastatin) 10 Mg Tablet, 10 MG PO HS, (Reported) Entered as Reported by: EDMAR FELIX on 01/19/19 0943 Ropinirole HCl (Ropinirole HCl) 1 Mg Tablet, 1 MG PO TID, (Reported) Entered as Reported by: EDMAR FELIX on 01/19/19 0933 Review of Systems Review of Systems Constitutional: see HPI EENTM: No Symptoms Reported Respiratory: No Symptoms Reported Cardiovascular: No Symptoms Reported Gastrointestinal: See HPI, Abdominal Pain; Denies Nausea Genitourinary: No Symptoms Reported Musculoskeletal: no symptoms reported Skin: no symptoms reported Psychiatric/Neurological: No Symptoms Reported Endocrine: No Symptoms Reported Hematologic/Lymphatic: No Symptoms Reported Past Vgysuff-Wgysrc-Bwuxhn Hx Immunizations Up To Date Tetanus Booster (TDap): Less than 5yrs PED Vaccines UTD: Yes Seasonal Allergies Seasonal Allergies: Yes Past Medical History Surgeries: Yes Abdominal, Cardiac, Hysterectomy, Orthopedic, Tonsillectomy Respiratory: No Cardiac: Yes Atrial Fibrillation, Heart Attack, Hypertension Neurological: Yes (tremor) Parkinson's Disease, Stroke Reproductive Disorders: No 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 2.0oz. 55.511106si; 18.00 BMI Method:Stated General Appearance: WD/WN, no apparent distress, thin Neck: non-tender, full range of motion Respiratory: no respiratory distress, no accessory muscle use Cardiovascular: regular rate, rhythm, no murmur Gastrointestinal: normal bowel sounds, soft, tenderness Extremities: normal range of motion, non-tender Neurologic/Psychiatric: alert, normal mood/affect Skin: normal color, warm/dry Progress/Results/Core Measures Results/Orders Lab Results Laboratory Tests Test 03/25/21 12:40 03/25/21 14:00 Range/Units White Blood Count 7.3 4.3-11.0 10^3/uL Red Blood Count 4.72 3.80-5.11 10^6/uL Hemoglobin 13.1 11.5-16.0 g/dL Hematocrit 43 35-52 % Mean Corpuscular Volume 90 80-99 fL Mean Corpuscular Hemoglobin 28 25-34 pg Mean Corpuscular Hemoglobin Concent 31 L 32-36 g/dL Red Cell Distribution Width 14.5 10.0-14.5 % Platelet Count 255 130-400 10^3/uL Mean Platelet Volume 10.4 9.0-12.2 fL Immature Granulocyte % (Auto) 0 % Neutrophils (%) (Auto) 64 42-75 % Lymphocytes (%) (Auto) 24 12-44 % Monocytes (%) (Auto) 11 0-12 % Eosinophils (%) (Auto) 2 0-10 % Basophils (%) (Auto) 1 0-10 % Neutrophils # (Auto) 4.7 1.8-7.8 10^3/uL Lymphocytes # (Auto) 1.7 1.0-4.0 10^3/uL Monocytes # (Auto) 0.8 0.0-1.0 10^3/uL Eosinophils # (Auto) 0.1 0.0-0.3 10^3/uL Basophils # (Auto) 0.0 0.0-0.1 10^3/uL Immature Granulocyte # (Auto) 0.0 0.0-0.1 10^3/uL Sodium Level 141 135-145 MMOL/L Potassium Level 3.9 3.6-5.0 MMOL/L Chloride Level 103 98-107 MMOL/L Carbon Dioxide Level 26 21-32 MMOL/L Anion Gap 12 5-14 MMOL/L Blood Urea Nitrogen 17 7-18 MG/DL Creatinine 0.73 0.60-1.30 MG/DL Estimat Glomerular Filtration Rate 76 BUN/Creatinine Ratio 23 Glucose Level 93 70-105 MG/DL Calcium Level 9.5 8.5-10.1 MG/DL Corrected Calcium 9.6 8.5-10.1 MG/DL Total Bilirubin 0.5 0.1-1.0 MG/DL Aspartate Amino Transf (AST/SGOT) 11 5-34 U/L Alanine Aminotransferase (ALT/SGPT) 6 0-55 U/L Alkaline Phosphatase 88 40-136 U/L Total Protein 7.4 6.4-8.2 GM/DL Albumin 3.9 3.2-4.5 GM/DL Lipase 13 8-78 U/L Urine Color YELLOW Urine Clarity CLEAR Urine pH 7.0 5-9 Urine Specific Matthews 1.020 1.016-1.022 Urine Protein NEGATIVE NEGATIVE Urine Glucose (UA) NEGATIVE NEGATIVE Urine Ketones NEGATIVE NEGATIVE Urine Nitrite NEGATIVE NEGATIVE Urine Bilirubin NEGATIVE NEGATIVE Urine Urobilinogen 0.2 < = 1.0 MG/DL Urine Leukocyte Esterase NEGATIVE NEGATIVE Urine RBC (Auto) NEGATIVE NEGATIVE Urine RBC NONE /HPF Urine WBC NONE /HPF Urine Squamous Epithelial Cells 0-2 /HPF Urine Crystals NONE /LPF Urine Bacteria NEGATIVE /HPF Urine Casts NONE /LPF Urine Mucus NEGATIVE /LPF Urine Culture Indicated NO My Orders Orders - SHUA ESCOBAR APRN Cbc With Automated Diff (03/25/21 12:42) Comprehensive Metabolic Panel (03/25/21 12:42) Lipase (03/25/21 12:42) Ua Culture If Indicated (03/25/21 12:42) Ed Iv/Invasive Line Start (03/25/21 12:42) Ct Abdomen/Pelvis W (03/25/21 12:42) Fentanyl Inj (Sublimaze Injection) (03/25/21 12:45) Ns Iv 1000 Ml (Sodium Chloride 0.9%) (03/25/21 12:45) Us Gallbladder [id number] (03/25/21 12:45) Iohexol Injection (Omnipaque 350 Mg/Ml 1 (03/25/21 13:30) Received Contrast (Hold Metformin- Contr (03/25/21 13:30) Ns (Ivpb) (Sodium Chloride 0.9% Ivpb Bag (03/25/21 13:30) Ketorolac Injection (Toradol Injection) (03/25/21 15:00) Fentanyl Inj (Sublimaze Injection) (03/25/21 15:00) Medications Given in ED Current Medications Medications Dose Ordered Sig/Ysabel Route Start Time Stop Time Status Last Admin Dose Admin Fentanyl Citrate 25 mcg ONCE ONCE IVP 03/25/21 12:45 03/25/21 12:46 DC 03/25/21 12:51 25 MCG Fentanyl Citrate 50 mcg ONCE ONCE IVP 03/25/21 15:00 03/25/21 15:01 DC 03/25/21 14:58 50 MCG Iohexol 100 ml ONCE ONCE IV 03/25/21 13:30 03/25/21 13:31 DC 03/25/21 14:46 66 ML Ketorolac Tromethamine 15 mg ONCE ONCE IVP 03/25/21 15:00 03/25/21 15:01 DC 03/25/21 14:59 15 MG Sodium Chloride 100 ml ONCE ONCE IV 03/25/21 13:30 03/25/21 13:31 DC 03/25/21 14:47 80 ML Departure Communication (Admissions) 1549-she is on Eliquis 2.5 mg p.o. twice daily. Last dose was last night on 03/24/2021. Spoke with Dr. Hayes. Offered admission for cholecystectomy on Saturday versus home to see him on Saturday and schedule it to be removed on Saturday. Given her severe pain she is hesitant to go home. We will admit, hold the Eliquis, consult hospitalist and tentatively plan for laparoscopic cholecystectomy on Saturday morning. Family Conversation NAME: MJ KRAMER [facility] REC#: [id number] PT STATUS: REG ER : 1935 PHYSICIAN: SUHA ESCOBAR APRN ADMIT DATE: 03/25/21/ER Draft Date of Exam:03/25/21 CT ABDOMEN/PELVIS W PROCEDURE: CT abdomen and pelvis with contrast. TECHNIQUE: Multiple contiguous axial images were obtained through the abdomen and pelvis after administration of intravenous contrast. Auto Exposure Controls were utilized during the CT exam to meet ALARA standards for radiation dose reduction. All CT scans use one or more of the following dose optimizing techniques: Automated exposure control, MA and/or KvP adjustment based on patient size and exam type or iterative reconstruction. INDICATION: Abdominal pain. FINDINGS: There are no prior CT abdomen/pelvis examinations available for comparison. The CTA chest exam of 12/14/2019 did include the upper abdomen. There is no acute abnormality identified on that exam. The gallbladder was not well visualized, however. The barrel lathe operator outside film shows that there is some gas in both the large and small bowel in a nonspecific fashion. There is no sign of a bowel obstruction. There does appear to be a fair amount of fecal material throughout the colon, however. There may be a very small amount of nonspecific free fluid low in the pelvis. The uterus is surgically absent. The urinary bladder is grossly unremarkable. The appendix was not well visualized, but there are no indirect signs of acute appendicitis. The liver, spleen, pancreas, aorta, and inferior vena cava are unremarkable for an acute abnormality. There appears to be a fairly well-circumscribed 3.5 cm area of low density superior to the right kidney. This may be related to the right adrenal gland. This finding is unchanged when compared to the previous study and consequently most likely a benign process. The left adrenal gland was not well visualized. The gallbladder was not well visualized. Reportedly, a gallbladder ultrasound exam is pending for further study. The stomach is not well distended and difficult to assess. The lung bases are clear. The bone windows show no sign of an acute bony abnormality. There do appear to be long-standing compression deformities of L2 and L3, and there are post-kyphoplasty changes involving L1 and T12. IMPRESSION: 1. There is no acute abnormality of the abdomen or pelvis identified. 2. There is a considerable amount of fecal material throughout the colon. 3. The gallbladder was not well visualized. Reportedly, ultrasound is pending for further study. Dictated on workstation # [id number] Dict: 03/25/21 1452 Trans: 03/25/21 1513 [id number] Interpreted by: HALEIGH PIZANO MD Electronically signed by: NAME: MJ KRAMER [facility] REC#: [id number] PT STATUS: REG ER : 1935 PHYSICIAN: SUHA ESCOBAR SUGAR PLANTATION MANAGER ADMIT DATE: 03/25/21/ER Signed Date of Exam:03/25/21 US GALLBLADDER [id number] EXAMINATION: US Abdomen limited. TECHNIQUE: Multiple real-time grayscale images were obtained over the right upper quadrant in various projections. REASON FOR EXAM: Epigastric pain. COMPARISON: None. FINDINGS: The liver is normal in size and shape. The liver echogenicity is within normal limits. There are no focal lesions. No intrahepatic biliary dilatation is present. The common bile duct is not dilated and measures 8 mm. The main portal vein is hepatopetal. No ascites is seen in the upper abdomen. Gallstones are visualized in the neck of the gallbladder, which do not appear mobile. There is no evidence of gallbladder wall thickening or pericholecystic fluid. Sonographic Rose's sign is negative. The visualized portion of the head of the pancreas are within normal limits. The body and tail of the pancreas are not well visualized due to overlying bowel gas. The visualized portions of the IVC and aorta appear normal. The right kidney measures approximately 11.6 cm in length. The renal pelvis is dilated. IMPRESSION: 1. Cholelithiasis. The gallstones appear immobile within the neck of the gallbladder. However, the sonographic Rose's sign is negative. Recommend correlation with patient history and symptoms and surgical consultation if indicated. 2. Mild right-sided hydronephrosis. Dictated by: Dictated on workstation # [id number] Dict: 03/25/21 1447 Trans: 03/25/21 1512 [id number] Interpreted by: MALIK TONY DO Electronically signed by: MALIK TONY DO 03/25/21 1512 Impression Primary Impression: Symptomatic cholelithiasis Disposition: ADMITTED INPATIENT Condition: Stable Admissions Decision to Admit Reason: Admit from ER (General) Decision to Admit/Date: Mar 25, 2021 Time/Decision to Admit Time: 15:50 Departure-Patient Inst. Referrals: SHREE DELVALLE MD (PCP/Family) Primary Care Physician SUHA ESCOBAR APRN Mar 25, 2021 12:45
[2021-03-25 12:51] LABS: BASOPHILS % (AUTO) 1 % (0-10); EOSINOPHILS # (AUTO) 0.1 10^3/uL (0.0-0.3); EOSINOPHILS % (AUTO) 2 % (0-10); HEMATOCRIT 43 % (35-52); HEMOGLOBIN 13.1 g/dL (11.5-16.0); LYMPHOCYTES # (AUTO) 1.7 10^3/uL (1.0-4.0); LYMPHOCYTES % (AUTO) 24 % (12-44); MEAN CORPUSCULAR HEMOGLOBIN 28 pg (25-34); MEAN CORPUSCULAR HGB CONC 31 g/dL (32-36); MEAN CORPUSCULAR VOLUME 90 fL (80-99); MEAN PLATELET VOLUME 10.4 fL (9.0-12.2); MONOCYTES # (AUTO) 0.8 10^3/uL (0.0-1.0); MONOCYTES % (AUTO) 11 % (0-12); NEUTROPHILS # (AUTO) 4.7 10^3/uL (1.8-7.8); NEUTROPHILS % (AUTO) 64 % (42-75); PLATELET COUNT 255 10^3/uL (130-400); WHITE BLOOD COUNT 7.3 10^3/uL (4.3-11.0)
[2021-03-25 13:07] LABS: ALBUMIN 3.9 GM/DL (3.2-4.5); POTASSIUM 3.9 MMOL/L (3.6-5.0)
[2021-03-25 13:08] LABS: CALCIUM 9.5 MG/DL (8.5-10.1)
[2021-03-25 13:09] LABS: TOTAL PROTEIN 7.4 GM/DL (6.4-8.2)
[2021-03-25 13:11] LABS: BILIRUBIN,TOTAL 0.5 MG/DL (0.1-1.0)
[2021-03-25 13:13] LABS: CREATININE SERUM 0.73 MG/DL (0.60-1.30)
[2021-03-25] MEDS ORDERED: NS 100 ML (IVPB) BAG IV ONE (13:30)
[2021-03-25] MEDS ORDERED: IOHEXOL 350 MG/ML 100 ML (OMNIPAQUE 350) VIAL IV ONE (13:30)
[2021-03-25] MEDS ORDERED: HOLD METFORMIN - RECEIVED CONTRAST 20 ML VIAL IV SCH (13:30)
[2021-03-25 14:09] LABS: BILIRUBIN,URINE NEGATIVE (NEGATIVE); CLARITY,URINE CLEAR; COLOR,URINE YELLOW; GLUCOSE, URINE (UA) NEGATIVE (NEGATIVE); KETONES,URINE NEGATIVE (NEGATIVE); LEUKOCYTE ESTERASE ,URINE NEGATIVE (NEGATIVE); NITRITE,URINE NEGATIVE (NEGATIVE); PROTEIN,URINE NEGATIVE (NEGATIVE)
[2021-03-25 14:43] LABS: BACTERIA,URINE NEGATIVE /HPF; SQUAMOUS EPITHELIAL CELL,UR 0-2 /HPF
[2021-03-25] MEDS ORDERED: KETOROLAC 30 MG/ML VIAL IVP ONE (15:00)
--- NOTE | 2021-03-25 15:08 | Diagnostic Imaging Report ---
EXAMINATION: US Abdomen limited. TECHNIQUE: Multiple real-time grayscale images were obtained over the right upper quadrant in various projections. REASON FOR EXAM: Epigastric pain. COMPARISON: None. FINDINGS: The liver is normal in size and shape. The liver echogenicity is within normal limits. There are no focal lesions. No intrahepatic biliary dilatation is present. The common bile duct is not dilated and measures 8 mm. The main portal vein is hepatopetal. No ascites is seen in the upper abdomen. Gallstones are visualized in the neck of the gallbladder, which do not appear mobile. There is no evidence of gallbladder wall thickening or pericholecystic fluid. Sonographic Rose's sign is negative. The visualized portion of the head of the pancreas are within normal limits. The body and tail of the pancreas are not well visualized due to overlying bowel gas. The visualized portions of the IVC and aorta appear normal. The right kidney measures approximately 11.6 cm in length. The renal pelvis is dilated. IMPRESSION: 1. Cholelithiasis. The gallstones appear immobile within the neck of the gallbladder. However, the sonographic Rose's sign is negative. Recommend correlation with patient history and symptoms and surgical consultation if indicated. 2. Mild right-sided hydronephrosis. Dictated by: Dictated on workstation # [id number]
--- NOTE | 2021-03-25 15:14 | Diagnostic Imaging Report ---
PROCEDURE: CT abdomen and pelvis with contrast. TECHNIQUE: Multiple contiguous axial images were obtained through the abdomen and pelvis after administration of intravenous contrast. Auto Exposure Controls were utilized during the CT exam to meet ALARA standards for radiation dose reduction. All CT scans use one or more of the following dose optimizing techniques: Automated exposure control, MA and/or KvP adjustment based on patient size and exam type or iterative reconstruction. INDICATION: Abdominal pain. FINDINGS: There are no prior CT abdomen/pelvis examinations available for comparison. The CTA chest exam of 12/14/2019 did include the upper abdomen. There is no acute abnormality identified on that exam. The gallbladder was not well visualized, however. The software configuration engineer film shows that there is some gas in both the large and small bowel in a nonspecific fashion. There is no sign of a bowel obstruction. There does appear to be a fair amount of fecal material throughout the colon, however. There may be a very small amount of nonspecific free fluid low in the pelvis. The uterus is surgically absent. The urinary bladder is grossly unremarkable. The appendix was not well visualized, but there are no indirect signs of acute appendicitis. The liver, spleen, pancreas, aorta, and inferior vena cava are unremarkable for an acute abnormality. There appears to be a fairly well-circumscribed 3.5 cm area of low density superior to the right kidney. This may be related to the right adrenal gland. This finding is unchanged when compared to the previous study and consequently most likely a benign process. The left adrenal gland was not well visualized. The gallbladder was not well visualized. There may be a few small calculi within the gallbladder. Reportedly, a gallbladder ultrasound exam is pending for further study. The stomach is not well distended and difficult to assess. The lung bases are clear. The bone windows show no sign of an acute bony abnormality. There do appear to be long-standing compression deformities of L2 and L3, and there are post-kyphoplasty changes involving L1 and T12. IMPRESSION: 1. There is no acute abnormality of the abdomen or pelvis identified. 2. There is a considerable amount of fecal material throughout the colon. 3. The gallbladder was not well visualized. There may be a few small calculi within the gallbladder. Reportedly, ultrasound is pending for further study. Dictated by: Dictated on workstation # [id number]
[2021-03-25] MEDS ORDERED: cloNIDine 0.1 MG (CATAPRES) TAB PO ONE (16:30)
[2021-03-25 17:43] VITALS: BP 193/93
[2021-03-25] MEDS ORDERED: UMEC1BLS IH (17:55)
[2021-03-25] MEDS ORDERED: AMAN100T PO (17:55)
[2021-03-25 18:00] VITALS: BP 140/78
[2021-03-25] MEDS ORDERED: FLEC100T PO (18:14)
[2021-03-25] MEDS ORDERED: APIX2.5T PO (18:14)
[2021-03-25] MEDS ORDERED: HYDR-3820 PO (18:14)
[2021-03-25] MEDS ORDERED: TRAM50TA3 PO (18:14)
[2021-03-25] MEDS ORDERED: ROPI1TAB PO (18:14)
[2021-03-25] MEDS ORDERED: DOCU100T2 PO (18:14)
[2021-03-25] MEDS ORDERED: DIAZ10TA3 PO (18:14)
[2021-03-25] MEDS ORDERED: CARB1TAB44 PO (18:14)
[2021-03-25] MEDS ORDERED: LISI40TA9 PO (18:14)
[2021-03-25] MEDS ORDERED: LOVA10TA PO (18:14)
[2021-03-25] MEDS ORDERED: ASCO500T72 PO (18:14)
[2021-03-25 18:18] VITALS: BP 193/93
[2021-03-25] MEDS ORDERED: RT-ALBUTEROL SULF 2.5 MG/3 ML PRE-MIX VIAL INH PRN (18:30)
[2021-03-25 19:26] VITALS: BP 132/71
[2021-03-25] MEDS ORDERED: ONDANSETRON 4 MG/2 ML (SDV) Z0FRAN IVP PRN (20:15)
[2021-03-25] MEDS: LACTATED RINGERS 1,000 ML IV SCH (20:36)
[2021-03-25] MEDS: cefTRIAXone 1,000 MG/SWFI 10 ML IV PUSH IV SCH ×2 (20:36)
[2021-03-25] MEDS: metroNIDAZOLE 500 MG/100 ML IVPB (PRE-MIX) IV SCH (20:37)
[2021-03-25] MEDS ORDERED: DIAZEPAM 5 MG (VALIUM) TABLET PO PRN (21:15)
[2021-03-25 23:12] VITALS: BP 163/84
[2021-03-26 03:28] VITALS: BP 170/79
[2021-03-26] MEDS: LACTATED RINGERS 1,000 ML IV SCH ×2 (04:22→17:35)
[2021-03-26] MEDS ORDERED: FLU QUAD HIGH DOSE 240 MCG/0.7 ML 2021-22 (FLUZONE) IM ONE (07:30)
[2021-03-26 07:55] VITALS: BP 180/78
--- NOTE | 2021-03-26 07:58 | History & Physical-Surgical ---
MIKA TIRADO A MED STUDENT 03/26/21 0758: History of Present Illness History of Present Illness Reason for visit/HPI 86 yo female who presented to ED yesterday for epigastric pain that radiated to her back. Pt has hx of HTN, Afib, splenectomy and Parkinson's. Pt currently takes Eliquis and last known dose was Saturday night 03/24. Pt reports she went to Urgent Care on Saturday and was diagnosed with a UTI and given medication, but the pain persisted and became much worse. Pt reports she was having epigastric pain that radiated to her back and was sharp/stabbing in nature. On Saturday morning the pain was so severe that she went to the ED. Pt was diagnosed with cholelithiasis and admitted to 4th floor for cholecystectomy Saturday. Pt reports she is feeling better today and states her abdominal pain is gone. Denies N/V/D/C, fever chills, chest pain or SOA. Date of Admission Mar 25, 2021 at 15:52 Date Seen by a Provider: Mar 26, 2021 Time Seen by a Provider: 07:30 I consulted on this patient on 03/26/21 07:58 Attending Physician Paola Chicas DO Admitting Physician Ranjit Ahuja MD Consult Allergies and Home Medications Allergies Coded Allergies: Sulfa (Sulfonamide Antibiotics) (Verified Allergy, Unknown, hives, 11/16/19) Patient Home Medication List Amantadine HCl (Amantadine) 100 Mg Tablet, 100 MG PO BID Prescribed by: OLIVA SZYMANSKI on 03/25/211754 Last Action: Converted Apixaban (Eliquis) 2.5 Mg Tablet, 2.5 MG PO BID Prescribed by: OLIVA SZYMANSKI on 03/25/211813 Last Action: Held Ascorbic Acid (Acerola C) 500 Mg Tab.chew, 500 MG PO DAILY Prescribed by: OLIVA SZYMANSKI on 03/25/211813 Last Action: Held Carbidopa/Levodopa (Carbidopa-Levo 25-100 mg Odt) 1 Each Tab.rapdis, 2 EACH PO TID Prescribed by: OLIVA SZYMANSKI on 03/25/211813 Last Action: Converted Diazepam (Diazepam) 10 Mg Tablet, 10 MG PO ONCE PRN for ANXIETY Prescribed by: OLIVA SZYMANSKI on 03/25/211813 Last Action: Converted Docusate Sodium (Docusate Sodium) 100 Mg Tablet, 200 MG PO BID Prescribed by: OLIVA SZYMANSKI on 03/25/211813 Last Action: Held Flecainide Acetate (Flecainide Acetate) 100 Mg Tablet, 100 MG PO BID Prescribed by: OLIVA SZYMANSKI on 03/25/211813 Last Action: Continued Hydrocodone/Acetaminophen (Hydrocodone-Acetamin 10-325 mg) 1 Each Tablet, 1 EACH PO Q4H Prescribed by: OLIVA SZYMANSKI on 03/25/211813 Last Action: Continued Lisinopril (Lisinopril) 40 Mg Tablet, 40 MG PO DAILY Prescribed by: OLIVA SZYMANSKI on 03/25/211813 Last Action: Continued Lovastatin (Lovastatin) 10 Mg Tablet, 10 MG PO DAILY Prescribed by: OLIVA SZYMANSKI on 03/25/211813 Last Action: Converted Ropinirole HCl (Ropinirole HCl) 1 Mg Tablet, 1 MG PO TID Prescribed by: OLIVA SZYMANSKI on 03/25/211813 Last Action: Continued Tramadol HCl (Tramadol HCl) 50 Mg Tablet, 50 MG PO DAILY PRN Prescribed by: OLIVA SZYMANSKI on 03/25/211813 Last Action: Reviewed Umeclidinium Brm/Vilanterol Tr (Anoro Ellipta 62.5-25 Mcg INH) 1 Each Blst.w.dev, 1 EACH IH DAILY Prescribed by: OLIVA SZYMANSKI on 03/25/211754 Last Action: New Order Discontinued Medications Amiodarone HCl (Amiodarone HCl) 200 Mg Tablet, 200 MG PO BID, (Reported) Discontinued Reason: No Longer Taking Entered as Reported by: EDMAR FELIX on 11/30/19 1542 Last Action: Discontinued Apixaban (Eliquis) 2.5 Mg Tablet, 2.5 MG PO BID, (Reported) Discontinued Reason: No Longer Taking Entered as Reported by: EDMAR FELIX on 11/16/19 1435 Last Action: Discontinued Aspirin (Aspir 81) 81 Mg Tablet.dr, 81 MG PO HS, (Reported) Discontinued Reason: No Longer Taking Entered as Reported by: EDMAR FELIX on 01/19/19 0941 Last Action: Discontinued Carbidopa/Levodopa (Carbidopa-Levodopa 25-100 Tab) 1 Each Tablet, 2 EA PO TID, (Reported) Discontinued Reason: No Longer Taking Entered as Reported by: EDMAR FELIX on 01/19/19 0933 Last Action: Discontinued Cyanocobalamin (Vitamin B-12) (Vitamin B-12) 1,000 Mcg Capsule, 2,000 MCG PO DAILY, (Reported) Discontinued Reason: No Longer Taking Entered as Reported by: EDMAR FELIX on 11/16/19 1438 Last Action: Discontinued Diazepam (Diazepam) 10 Mg Tablet, 10 MG PO HS PRN for ANXIETY, (Reported) Discontinued Reason: No Longer Taking Entered as Reported by: DOLORES LEMONS on 06/20/16 1310 Last Action: Discontinued Diclofenac Sodium (Diclofenac Sodium) 50 Mg Tablet.dr, 50 MG PO BID, (Reported) Discontinued Reason: No Longer Taking Entered as Reported by: DOLORES LEMONS on 06/20/16 1310 Last Action: Discontinued Docusate Sodium (Docusate Sodium) 100 Mg Capsule, 200 MG PO BID, (Reported) Discontinued Reason: No Longer Taking Entered as Reported by: DEACON MIXON on 06/20/16 1341 Last Action: Discontinued Hydrocodone/Acetaminophen (Hydrocodone/Acetaminophen 5 MG/325 MG TAB) 1 Each Tablet, 1 TAB PO Q4-6HR, (Reported) Discontinued Reason: No Longer Taking Entered as Reported by: MUSA SOSA on 12/15/19 0128 Last Action: Discontinued Lisinopril (Lisinopril) 20 Mg Tablet, 40 MG PO DAILY, (Reported) Discontinued Reason: No Longer Taking Entered as Reported by: EDMAR FELIX on 11/16/19 1435 Last Action: Discontinued Lovastatin (Lovastatin) 10 Mg Tablet, 10 MG PO HS, (Reported) Discontinued Reason: No Longer Taking Entered as Reported by: EDMAR FELIX on 01/19/19 0943 Last Action: Discontinued Ropinirole HCl (Ropinirole HCl) 1 Mg Tablet, 1 MG PO TID, (Reported) Discontinued Reason: No Longer Taking Entered as Reported by: EDMAR FELIX on 01/19/1933 Last Action: Discontinued Past Wdffnjt-Wejlgo-Gsyidg Hx Patient Social History Tobacco Use?: No Smoking Status: Former Smoker Smokeless Tobacco Frequency: Former User Substance use?: No Alcohol Use?: No Pt feels they are or have been: No Immunizations Up To Date Date of Influenza Vaccine: Jun 10, 2019 First/Initial COVID19 Vaccinat: 11/04 Second COVID19 Vaccination Chris: 11/04 Tetanus Booster (TDap): Unknown PED Vaccines UTD: Yes Date of Pneumonia Vaccine: Feb 20, 2016 Seasonal Allergies Seasonal Allergies: Yes Current Status status: No status: No Advance Directives: Yes Advance Directive Location: Family to bring in copy Communicates: Verbally Primary Language: Micronesian Preferred Spoken Language: Micronesian Is interpretation needed?: No Past Medical History Surgeries: Abdominal, Cardiac, Hysterectomy, Orthopedic, Tonsillectomy Atrial Fibrillation, Heart Attack, Hypertension Parkinson's Disease, Stroke SOUND [employer] 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[employer]ER History: Hysterectomy, Menopausal Sexually Transmitted Disease: No Degenerate Disk Disease, Arthritis, Chronic Back Pain Anxiety Blood Disorders: No Family Medical History Cardiovascular disease 19 FATHER Hypertension 19 FATHER No Pertinent Family Hx Review of Systems Constitutional: No chills, No dizziness, No fever EENTM: No blurred vision Respiratory: No cough, No short of breath Cardiovascular: No chest pain, No palpitations Gastrointestinal: No abdominal pain, No constipation, No diarrhea, No nausea, No vomiting Genitourinary: No dysuria, No frequency Skin: no symptoms reported Psychiatric/Neurological: No Symptoms Reported Physical Exam Vital Signs Vital Signs - First Documented 03/25/21 03/25/21 03/25/21 17:32 17:43 18:18 Temp 36.1 Pulse 74 Resp 16 B/P (MAP) 178/99 Pulse Ox 96 O2 Delivery Room Air FiO2 21 Capillary Refill : Height, Weight, BMI Height: 5'7.00" Weight: 123lbs. 2.0oz. [id number]; 19.36 BMI Method:Stated General Appearance: No Apparent Distress, WD/WN HEENT: PERRL/EOMI, Normal ENT Inspection Neck: Full Range of Motion, Normal Inspection Respiratory: Chest Non Tender, Lungs Clear, Normal Breath Sounds, No Accessory Muscle Use, No Respiratory Distress Cardiovascular: Regular Rate, Rhythm, No Gallop, No Murmur Gastrointestinal: Normal Bowel Sounds, No Pulsatile Mass, Non Tender, Soft Rectal: Deferred Neurologic/Psychiatric: Alert, Oriented x3, No Motor/Sensory Deficits, Normal M ood/Affect Skin: Normal Color, Warm/Dry Data Review Labs Laboratory Tests 03/25/21 12:40: White Blood Count 7.3, Red Blood Count 4.72, Hemoglobin 13.1, Hematocrit 43, Mean Corpuscular Volume 90, Mean Corpuscular Hemoglobin 28, Mean Corpuscular Hemoglobin Concent 31L, Red Cell Distribution Width 14.5, Platelet Count 255, Mean Platelet Volume 10.4, Immature Granulocyte % (Auto) 0, Neutrophils (%) (Auto) 64, Lymphocytes (%) (Auto) 24, Monocytes (%) (Auto) 11, Eosinophils (%) (Auto) 2, Basophils (%) (Auto) 1, Neutrophils # (Auto) 4.7, Lymphocytes # (Auto) 1.7, Monocytes # (Auto) 0.8, Eosinophils # (Auto) 0.1, Basophils # (Auto) 0.0, Immature Granulocyte # (Auto) 0.0, Sodium Level 141, Potassium Level 3.9, Chloride Level 103, Carbon Dioxide Level 26, Anion Gap 12, Blood Urea Nitrogen 17, Creatinine 0.73, Estimat Glomerular Filtration Rate 76, BUN/Creatinine Ratio 23, Glucose Level 93, Calcium Level 9.5, Corrected Calcium 9.6, Total Bilirubin 0.5, Aspartate Amino Transf (AST/SGOT) 11, Alanine Aminotransferase (ALT/SGPT) 6, Alkaline Phosphatase 88, Total Protein 7.4, Albumin 3.9, Lipase 13 03/25/21 14:00: Urine Color YELLOW, Urine Clarity CLEAR, Urine pH 7.0, Urine Specific [place] 1.020, Urine Protein NEGATIVE, Urine Glucose (UA) NEGATIVE, Urine Ketones NEGATIVE, Urine Nitrite NEGATIVE, Urine Bilirubin NEGATIVE, Urine Urobilinogen 0.2, Urine Leukocyte Esterase NEGATIVE, Urine RBC (Auto) NEGATIVE, Urine RBC NON E, Urine WBC NONE, Urine Squamous Epithelial Cells 0-2, Urine Crystals NONE, Urine Bacteria NEGATIVE, Urine Casts NONE, Urine Mucus NEGATIVE, Urine Culture Indicated NO Assessment/Plan Assessment/Plan Admission Diagonsis Cholelithiasis Reason for Inpatient Admission: Cholelithiasis Assessment/Plan Cholelithiasis -Plan to do cholecystectomy Saturday - Eliquis -Fentanyl for pain control -Continue to monitor HTN -Managed by hospitalist, appreciate their help Afib -Managed my hospitalist PAOLA CHICAS DO 03/26/21 1124: History of Present Illness History of Present Illness Reason for visit/HPI Chief complaint epigastric abdominal pain. Patient is an 86-year-old female who began having epigastric abdominal pain. She has had it for several days. She was diagnosed with a urinary tract infection on outpatient urgent care. Patient was started on ciprofloxacin she states. She continued to have pain in the epigastric area. It radiates to her back. The sharp stabbing type pain. Patient states that the intensity varies a little bit. Today her pain has improved some. She is not sure what makes it better or worse. She denies any nausea vomiting fever sweats chills shortness of breath or chest pain at this time. Patient had an ultrasound performed showing nonmobile gallbladder stones and some mild right hydronephrosis. Patient also had a CT scan that did not hav e any acute abnormality except for some slightly increased stool through the colon, and possible gallstones. Allergies and Home Medications Allergies Coded Allergies: Sulfa (Sulfonamide Antibiotics) (Verified Allergy, Unknown, hives, 11/16/19) Patient Home Medication List Home Medication List Reviewed: Yes Amantadine HCl (Amantadine) 100 Mg Tablet, 100 MG PO BID Prescribed by: OLIVA SZYMANSKI on 03/25/211754 Last Action: Converted Apixaban (Eliquis) 2.5 Mg Tablet, 2.5 MG PO BID Prescribed by: OLIVA SZYMANSKI on 03/25/211813 Last Action: Held Ascorbic Acid (Acerola C) 500 Mg Tab.chew, 500 MG PO DAILY Prescribed by: OLIVA SZYMANSKI on 03/25/211813 Last Action: Held Carbidopa/Levodopa (Carbidopa-Levo 25-100 mg Odt) 1 Each Tab.rapdis, 2 EACH PO TID Prescribed by: OLIVA SZYMANSKI on 03/25/211813 Last Action: Converted Diazepam (Diazepam) 10 Mg Tablet, 10 MG PO ONCE PRN for ANXIETY Prescribed by: OLIVA SZYMANSKI on 03/25/211813 Last Action: Converted Docusate Sodium (Docusate Sodium) 100 Mg Tablet, 200 MG PO BID Prescribed by: OLIVA SZYMANSKI on 03/25/211813 Last Action: Held Flecainide Acetate (Flecainide Acetate) 100 Mg Tablet, 100 MG PO BID Prescribed by: OLIVA SZYMANSKI on 03/25/211813 Last Action: Continued Hydrocodone/Acetaminophen (Hydrocodone-Acetamin 10-325 mg) 1 Each Tablet, 1 EACH PO Q4H Prescribed by: OLIVA SZYMANSKI on 03/25/211813 Last Action: Continued Lisinopril (Lisinopril) 40 Mg Tablet, 40 MG PO DAILY Prescribed by: OLIVA SZYMANSKI on 03/25/211813 Last Action: Continued Lovastatin (Lovastatin) 10 Mg Tablet, 10 MG PO DAILY Prescribed by: OLIVA SZYMANSKI on 03/25/211813 Last Action: Converted Ropinirole HCl (Ropinirole HCl) 1 Mg Tablet, 1 MG PO TID Prescribed by: OLIVA SZYMANSKI on 03/25/211813 Last Action: Continued Tramadol HCl (Tramadol HCl) 50 Mg Tablet, 50 MG PO DAILY PRN Prescribed by: OLIVA SZYMANSKI on 03/25/211813 Last Action: Reviewed Umeclidinium Brm/Vilanterol Tr (Anoro Ellipta 62.5-25 Mcg INH) 1 Each Blst.w.dev, 1 EACH IH DAILY Prescribed by: OLIVA SZYMANSKI on 03/25/211754 Last Action: New Order Discontinued Medications Amiodarone HCl (Amiodarone HCl) 200 Mg Tablet, 200 MG PO BID, (Reported) Discontinued Reason: No Longer Taking Entered as Reported by: EDMAR FELIX on 11/30/19 1542 Last Action: Discontinued Apixaban (Eliquis) 2.5 Mg Tablet, 2.5 MG PO BID, (Reported) Discontinued Reason: No Longer Taking Entered as Reported by: EDMAR FELIX on 11/16/19 1435 Last Action: Discontinued Aspirin (Aspir 81) 81 Mg Tablet.dr, 81 MG PO HS, (Reported) Discontinued Reason: No Longer Taking Entered as Reported by: EDMAR FELIX on 01/19/19 0941 Last Action: Discontinued Carbidopa/Levodopa (Carbidopa-Levodopa 25-100 Tab) 1 Each Tablet, 2 EA PO TID, (Reported) Discontinued Reason: No Longer Taking Entered as Reported by: EDMAR FELIX on 01/19/19 0931 Last Action: Discontinued Cyanocobalamin (Vitamin B-12) (Vitamin B-12) 1,000 Mcg Capsule, 2,000 MCG PO DAILY, (Reported) Discontinued Reason: No Longer Taking Entered as Reported by: EDMAR FELIX on 11/16/19 1438 Last Action: Discontinued Diazepam (Diazepam) 10 Mg Tablet, 10 MG PO HS PRN for ANXIETY, (Reported) Discontinued Reason: No Longer Taking Entered as Reported by: DOLORES LEMONS on 06/20/16 1310 Last Action: Discontinued Diclofenac Sodium (Diclofenac Sodium) 50 Mg Tablet.dr, 50 MG PO BID, (Reported) Discontinued Reason: No Longer Taking Entered as Reported by: DOLORES LEMONS on 06/20/16 1310 Last Action: Discontinued Docusate Sodium (Docusate Sodium) 100 Mg Capsule, 200 MG PO BID, (Reported) Discontinued Reason: No Longer Taking Entered as Reported by: DEACON MIXON on 06/20/16 1341 Last Action: Discontinued Hydrocodone/Acetaminophen (Hydrocodone/Acetaminophen 5 MG/325 MG TAB) 1 Each Tablet, 1 TAB PO Q4-6HR, (Reported) Discontinued Reason: No Longer Taking Entered as Reported by: MUSA SOSA on 12/15/19 0128 Last Action: Discontinued Lisinopril (Lisinopril) 20 Mg Tablet, 40 MG PO DAILY, (Reported) Discontinued Reason: No Longer Taking Entered as Reported by: EDMAR FELIX on 11/16/19 1435 Last Action: Discontinued Lovastatin (Lovastatin) 10 Mg Tablet, 10 MG PO HS, (Reported) Discontinued Reason: No Longer Taking Entered as Reported by: EDMAR FELIX on 01/19/19 0943 Last Action: Discontinued Ropinirole HCl (Ropinirole HCl) 1 Mg Tablet, 1 MG PO TID, (Reported) Discontinued Reason: No Longer Taking Entered as Reported by: EDMAR FELIX on 01/19/19 0933 Last Action: Discontinued Past Lvbsjrr-Bnpnka-Ozwagm Hx Patient Social History Marrital Status: Past Medical History Surgeries: Abdominal (Splenectomy), Hysterectomy, Orthopedic (Back surgery) Atrial Fibrillation S[employer]ER History: Hysterectomy Family Medical History Reviewed Nursing Family Hx Cardiovascular disease 19 FATHER Hypertension 19 FATHER No Pertinent Family Hx Review of Systems Constitutional: No chills, No fever EENTM: No blurred vision Respiratory: No cough, No short of breath Cardiovascular: No chest pain, No palpitations Gastrointestinal: abdominal pain (Epigastric); No constipation, No diarrhea, No nausea, No vomiting Genitourinary: No dysuria, No frequency Musculoskeletal: back pain; No joint pain Skin: No change in color, No change in hair/nails Psychiatric/Neurological: Denies Depressed, Denies Emotional Problems All Other Systems Reviewed Negative Unless Noted: Yes (Negative excepted noted.) Physical Exam General Appearance: No Apparent Distress; No Anxious; Chronically ill, Thin HEENT: PERRL/EOMI, Normal ENT Inspection Neck: Normal Inspection, Supple Respiratory: Chest Non Tender, No Accessory Muscle Use, No Respiratory Distress Cardiovascular: Regular Rate, Rhythm, No JVD Gastrointestinal: Soft, Tenderness (Epigastric) Rectal: Deferred Back: Other (Tender mid thoracic) Extremity: Non Tender, No Calf Tenderness Neurologic/Psychiatric: Alert, Oriented x3, No Motor/Sensory Deficits, Normal Mood/Affect Skin: Normal Color, Warm/Dry Lymphatic: No Adenopathy Assessment/Plan Assessment/Plan Admission Diagonsis Epigastric abdominal pain Symptomatic cholelithiasis Long-term anticoagulation Atrial fibrillation Admission Status: Inpatient Order (span 2 midnights) Reason for Inpatient Admission: Patient being admitted for laparoscopic ostectomy. And pain control. Patient with symptomatic cholelithiasis. Feels she would likely benefit from having gallbladder removed. Patient needs to have anticoagulant held and she will be here for 2 midnights. Assessment/Plan Epigastric abdominal pain Symptomatic cholelithiasis Long-term anticoagulation Atrial fibrillation Patient with symptoms of epigastric abdominal pain and she had a gallbladder ultrasound demonstrating gallstones that appear to be immobile in the neck of the gallbladder. Patient recommended to have laparoscopic cholecystectomy with intraoperative cholangiogram all other indicated procedures she understands and wishes to proceed. Patient is on long-term anticoagulation will hold her anticoagulation for her atrial fibrillation. Pain controlled. We will plan on doing laparoscopic cholecystectomy tomorrow. N.p.o. after midnight. Supervisory-Addendum Brief Verification & Attestation Participated in pt care: history, MDM, physical Personally performed: exam, history, MDM, supervision of care Care discussed with: Medical Student Procedures: n/a Results interpretation: Verified all documentation Verification and Attestation of Medical Student E/M Service A medical student performed and documented this service in my presence. I reviewed and verified all information documented by the medical student and made modifications to such information, when appropriate. I personally performed the physical exam and medical decision making. Paola Chicas, Mar 26, 2021,11:28 MIKA TIRADO MED STUDENT Mar 26, 2021 07:58 PAOLA CHICAS DO Mar 26, 2021 11:24
[2021-03-26] MEDS: metroNIDAZOLE 500 MG/100 ML IVPB (PRE-MIX) IV SCH ×2 (08:03→21:38)
[2021-03-26] MEDS: SIMvastatin 10 MG (ZOCOR) TAB PO SCH (09:15)
[2021-03-26] MEDS: FLECAINIDE 100 MG (TAMBOCOR) TAB PO SCH ×2 (09:15→21:02)
[2021-03-26] MEDS: SINEMET 25/100 (CARBIDOPA/LEVODOPA) TAB PO SCH ×3 (09:15→21:02)
[2021-03-26] MEDS: AMANTADINE 100 MG (SYMMETREL) CAP PO SCH ×2 (09:16→21:02)
[2021-03-26] MEDS: lisINopril 40 MG (PRINIVIL) TABLET PO SCH (09:16)
[2021-03-26] MEDS: rOPINIRole 1 MG (REQUIP) TABLET PO SCH ×3 (09:16→21:02)
[2021-03-26 11:20] VITALS: BP 127/66
--- NOTE | 2021-03-26 12:42 | Consultation - Hospitalist ---
HPI History of Present Illness: HPI/Chief Complaint Patient is an 86-year-old female with past medical history of hypertension, hyperlipidemia, Parkinson's disease, atrial fibrillation who presented to the emergency department due to abdominal pain. This has been going on for roughly 3 days and she was seen at an urgent care 2 days ago and diagnosed with a urinary tract infection. She was prescribed Levaquin and despite this her symptoms did not improve. She had poor oral intake and decided to seek evaluation in the emergency department. CT abdomen was done along with gallbladder ultrasound which revealed cholelithiasis. She was admitted to surgery for laparoscopic cholecystectomy. I am consulted for medical management. Source: patient Date Seen 03/26/21 Attending Physician Jj Hayes DO PCP Ranjit Ahuja MD Referring Physician Date of Admission Mar 25, 2021 at 15:52 Home Medications & Allergies Home Medications Reviewed patient Home Medication Reconciliation performed by pharmacy medication reconciliations collision technician and/or nursing. Patients Allergies have been reviewed. Allergies Allergies Coded Allergies Sulfa (Sulfonamide Antibiotics) (Verified Allergy, Unknown, hives, 11/16/19) Past Fxhkbnp-[id number]-Sivwpm Hx Patient Social History Marrital Status: Tobacco Use?: No Smoking Status: Former Smoker Smokeless Tobacco Frequency: Former User Substance use?: No Alcohol Use?: No Pt feels they are or have been: No Immunizations Up To Date Date of Influenza Vaccine: Jun 10, 2019 First/Initial COVID19 Vaccinat: 11/04 Second COVID19 Vaccination Chris: 11/04 Tetanus Booster (TDap): Unknown PED Vaccines UTD: Yes Date of Pneumonia Vaccine: Feb 20, 2016 Seasonal Allergies Seasonal Allergies: Yes Current Status status: No status: No Advance Directives: Yes Advance Directive Location: Family to bring in copy Communicates: Verbally Primary Language: Lebanese Preferred Spoken Language: Lebanese Is interpretation needed?: No Past Medical History Surgeries: Abdominal (Splenectomy), Hysterectomy, Orthopedic (Back surgery) Atrial Fibrillation Parkinson's Disease, 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 Sexually Transmitted Disease: No Degenerate Disk Disease, Arthritis, Chronic Back Pain Anxiety Blood Disorders: No Family Medical History Reviewed Nursing Family Hx Cardiovascular disease 19 FATHER Hypertension 19 FATHER No Pertinent Family Hx Review of Systems Constitutional: No chills, No fever EENTM: no symptoms reported Respiratory: No cough, No short of breath Cardiovascular: No see HPI, No edema; Hx of Intervention; No palpitations Gastrointestinal: see HPI Genitourinary: no symptoms reported Musculoskeletal: no symptoms reported Skin: no symptoms reported Psychiatric/Neurological: No Symptoms Reported Physical Exam Physical Exam Vital Signs Vital Signs - First Documented 03/25/21 03/25/21 03/25/21 17:32 17:43 18:18 Temp 36.1 Pulse 74 Resp 16 B/P (MAP) 178/99 Pulse Ox 96 O2 Delivery Room Air FiO2 21 Capillary Refill : Height, Weight, BMI Height: 5'7.00" Weight: 123lbs. 2.0oz. 55.756040op; 19.36 BMI Method:Stated General Appearance: No Apparent Distress, Chronically ill, Thin HEENT: PERRL/EOMI, Moist Mucous Membranes; No Scleral Icterus (L), No Scleral Icterus (R) Neck: Normal Inspection, Supple Respiratory: Lungs Clear, No Accessory Muscle Use, No Respiratory Distress Cardiovascular: Regular Rate, Rhythm, No JVD, No Murmur Gastrointestinal: Soft, Tenderness (Epigastric) Rectal: Deferred Back: Other (Tender mid thoracic) Neurologic/Psychiatric: Alert, Oriented x3, Normal Mood/Affect Skin: Normal Color, Warm/Dry Results Results/Procedures Labs Laboratory Tests 03/25/21 12:40 Patient resulted labs reviewed. Imaging: Reviewed Imaging Report Imaging NAME: [facility] REC#: [id number] PT STATUS: REG ER : 1937 PHYSICIAN: SUHA ESCOBAR APRN ADMIT DATE: 03/25/21/ER Draft Date of Exam:03/25/21 CT ABDOMEN/PELVIS W PROCEDURE: CT abdomen and pelvis with contrast. TECHNIQUE: Multiple contiguous axial images were obtained through the abdomen and pelvis after administration of intravenous contrast. Auto Exposure Controls were utilized during the CT exam to meet ALARA standards for radiation dose reduction. All CT scans use one or more of the following dose optimizing techniques: Automated exposure control, MA and/or KvP adjustment based on patient size and exam type or iterative reconstruction. INDICATION: Abdominal pain. FINDINGS: There are no prior CT abdomen/pelvis examinations available for comparison. The CTA chest exam of 12/14/2019 did include the upper abdomen. There is no acute abnormality identified on that exam. The gallbladder was not well visualized, however. The linux network administrator film shows that there is some gas in both the large and small bowel in a nonspecific fashion. There is no sign of a bowel obstruction. There does appear to be a fair amount of fecal material throughout the colon, however. There may be a very small amount of nonspecific free fluid low in the pelvis. The uterus is surgically absent. The urinary bladder is grossly unremarkable. The appendix was not well visualized, but there are no indirect signs of acute appendicitis. The liver, spleen, pancreas, aorta, and inferior vena cava are unremarkable for an acute abnormality. There appears to be a fairly well-circumscribed 3.5 cm area of low density superior to the right kidney. This may be related to the right adrenal gland. This finding is unchanged when compared to the previous study and consequently most likely a benign process. The left adrenal gland was not well visualized. The gallbladder was not well visualized. Reportedly, a gallbladder ultrasound exam is pending for further study. The stomach is not well distended and difficult to assess. The lung bases are clear. The bone windows show no sign of an acute bony abnormality. There do appear to be long-standing compression deformities of L2 and L3, and there are post-kyphoplasty changes involving L1 and T12. IMPRESSION: 1. There is no acute abnormality of the abdomen or pelvis identified. 2. There is a considerable amount of fecal material throughout the colon. 3. The gallbladder was not well visualized. Reportedly, ultrasound is pending for further study. Dictated on workstation # [id number] Dict: 03/25/21 1452 Trans: 03/25/21 1513 [id number] Interpreted by: HALEIGH PIZANO MD Electronically signed by: NAME: [facility] REC#: [id number] PT STATUS: REG ER : 1935 PHYSICIAN: SUHA ESCOBAR APRN ADMIT DATE: 03/25/21/ER Signed Date of Exam:03/25/21 US GALLBLADDER [id number] EXAMINATION: US Abdomen limited. TECHNIQUE: Multiple real-time grayscale images were obtained over the right upper quadrant in various projections. REASON FOR EXAM: Epigastric pain. COMPARISON: None. FINDINGS: The liver is normal in size and shape. The liver echogenicity is within normal limits. There are no focal lesions. No intrahepatic biliary dilatation is present. The common bile duct is not dilated and measures 8 mm. The main portal vein is hepatopetal. No ascites is seen in the upper abdomen. Gallstones are visualized in the neck of the gallbladder, which do not appear mobile. There is no evidence of gallbladder wall thickening or pericholecystic fluid. Sonographic Rose's sign is negative. The visualized portion of the head of the pancreas are within normal limits. The body and tail of the pancreas are not well visualized due to overlying bowel gas. The visualized portions of the IVC and aorta appear normal. The right kidney measures approximately 11.6 cm in length. The renal pelvis is dilated. IMPRESSION: 1. Cholelithiasis. The gallstones appear immobile within the neck of the gallbladder. However, the sonographic Rose's sign is negative. Recommend correlation with patient history and symptoms and surgical consultation if indicated. 2. Mild right-sided hydronephrosis. Dictated by: Dictated on workstation # [id number] Dict: 03/25/21 1447 Trans: 03/25/21 1512 [id number] Interpreted by: MALIK TONY DO Electronically signed by: MALIK TONY DO 03/25/21 1512 Assessment/Plan Assessment and Plan Assess & Plan/Chief Complaint Symptomatic cholithiasis Management per primary Pain regimen Plan for OR tomorrow for lap harman CLD today and NPO tomorrow A-fib CAD HTN Cardiology consulted, appreciate recs Continue home meds until NPO Eliquis on hold for surgery Parkinson's Disease Continue Sinemet while able to PO DVt ppx: Lovenox Diagnosis/Problems Diagnosis/Problems (1) Paroxysmal atrial fibrillation (2) Parkinson's disease (3) Hypertension (4) Symptomatic cholelithiasis Status: Acute (5) HLD (hyperlipidemia) KRISS MORROW MD Mar 26, 2021 12:42
[2021-03-26 15:56] VITALS: BP 131/72
[2021-03-26 20:00] VITALS: BP 118/71
[2021-03-26] MEDS: cefTRIAXone 1,000 MG/SWFI 10 ML IV PUSH IV SCH ×2 (21:01)
[2021-03-26] MEDS ORDERED: DIAZEPAM 5 MG (VALIUM) TABLET PO PRN (21:15)
[2021-03-27] VITALS (15 sets, daily range): BP systolic 118–202; BP diastolic 58–111
--- NOTE | 2021-03-27 07:23 | Progress Note - Surgery ---
LORAINENATIVIDADMIKA A MED STUDENT 03/27/21 0723: Subjective Date Seen by a Provider: Mar 27, 2021 Time Seen by a Provider: 07:00 Subjective/Events-last exam Pt up in bed this morning, reports she has increased epigastric abdominal pain this morning that radiates to her back. Pain is a 12/24. Denies N/V/D/C, fever, chills, SOA, chest pain. Pt consents to have cholecystectomy today and inquires whether she will be d/c after surgery or have to stay in hospital another night. Review of Systems General: No Chills, No Fatigue HEENT: No Head Aches, No Visual Changes Pulmonary: No Dyspnea, No Cough Cardiovascular: No: Chest Pain, Palpitations Gastrointestinal: Abdominal Pain; No: Nausea, Vomiting, Diarrhea, Constipation Genitourinary: No Dysuria, No Frequency Musculoskeletal: back pain; No: leg pain Neurological: No: Weakness, Numbness Objective Exam Vital Signs Date Time Temp Pulse Resp B/P (MAP) Pulse Ox O2 Delivery O2 Flow Rate FiO2 03/27/21 06:24 36.2 03/27/21 05:00 36.2 57 18 171/85 (113) 92 Room Air 03/27/21 01:53 36.8 03/27/21 01:00 53 03/27/21 00:12 36.8 52 18 168/81 (110) 94 Room Air 03/26/21 21:28 80 Room Air 03/26/21 21:00 97 Room Air 2.00 03/26/21 20:00 36.3 74 18 118/71 (87) 93 Room Air 03/26/21 19:00 60 03/26/21 15:56 36.2 52 18 131/72 (91) 90 Room Air 03/26/21 12:47 61 03/26/21 11:20 36.6 53 18 127/66 (86) 93 Room Air 03/26/21 08:33 93 Room Air 03/26/21 07:55 36.7 56 16 180/78 (112) 93 Room Air 03/26/21 07:30 Room Air 03/26/21 07:25 99 Nasal Cannula 2.00 I & O 03/27/21 07:00 Intake Total 1550 ml Balance 1550 ml Capillary Refill : General Appearance: No Apparent Distress, Chronically ill, Thin HEENT: PERRL/EOMI, Normal ENT Inspection; No Scleral Icterus (L), No Scleral Icterus (R) Neck: Normal Inspection, Supple Respiratory: Chest Non Tender, Lungs Clear, Normal Breath Sounds, No Accessory Muscle Use, No Respiratory Distress Cardiovascular: Regular Rate, Rhythm, No JVD, No Murmur Gastrointestinal: normal bowel sounds, soft, tenderness (epigastric) Extremity: Normal Capillary Refill, No Pedal Edema Neurologic/Psychiatric: Alert, Oriented x3, Normal Mood/Affect Skin: Normal Color, Warm/Dry Lymphatic: No Adenopathy Results Lab Laboratory Tests 03/26/21 16:45: SARS-CoV-2 RNA (RT-PCR) Not Detected Assessment/Plan Assessment/Plan Admission Diagonsis Symptomatic cholelithiasis Assessment/Plan Epigastric abdominal pain Symptomatic cholelithiasis Long-term anticoagulation Atrial fibrillation Epigastric abdominal pain -Worse today at 7/10 Symptomatic cholelithiasis -Pt currently NPO, scheduled for cholecystectomy at 1200. -Pt consents to cholecystectomy with intraoperative cholangiogram and all ot her indicated procedures correction anticoagulation -Hold Eliquis for surgery Af PAOLA HAYES DO 03/27/21 0920: Subjective Subjective/Events-last exam Patient with epigastric abdominal pain. Radiates into back. Pain 12/24. NPO. Denies n/v fever sweats chills shortness of breath or chest pain. Objective Exam General Appearance: No Apparent Distress, Chronically ill HEENT: PERRL/EOMI, Normal ENT Inspection Neck: Normal Inspection, Supple Respiratory: Chest Non Tender, No Accessory Muscle Use, No Respiratory Distress Cardiovascular: Regular Rate, Rhythm, No JVD Gastrointestinal: soft, tenderness (epigastric) Extremity: Normal Capillary Refill, Non Tender Neurologic/Psychiatric: Alert, Oriented x3, Normal Mood/Affect Skin: Normal Color, Warm/Dry Lymphatic: No Adenopathy Assessment/Plan Assessment/Plan Assessment/Plan Epigastric abdominal pain Symptomatic cholelithiasis Long-term anticoagulation Atrial fibrillation Epigastric abdominal pain -Worse today at 7/10 Symptomatic cholelithiasis -Pt currently NPO, scheduled for cholecystectomy today. 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 I reviewed and verified all information documented by the medical student and made modifications to such information, when appropriate. I personally performed the physical exam and medical decision making. Paola Hayes, Mar 27, 2021,09:20 MIKA TIRADO MED STUDENT Mar 27, 2021 07:23 PAOLA HAYES DO Mar 27, 2021 09:20
[2021-03-27] MEDS: metroNIDAZOLE 500 MG/100 ML IVPB (PRE-MIX) IV SCH ×2 (08:05→20:10)
[2021-03-27] MEDS: SINEMET 25/100 (CARBIDOPA/LEVODOPA) TAB PO SCH ×3 (09:00→20:10)
[2021-03-27] MEDS: rOPINIRole 1 MG (REQUIP) TABLET PO SCH ×3 (09:00→20:09)
[2021-03-27] MEDS ORDERED: LIDOCAINE PF 2% 5 ML (XYLOCAINE) VIAL ONE (10:48)
[2021-03-27] MEDS ORDERED: ONDANSETRON 4 MG/2 ML (SDV) Z0FRAN ONE (10:48)
[2021-03-27] MEDS ORDERED: SEVOFLURANE (ULTANE) 15 ML INHAL SOLN ONE ×2 (10:48→13:26)
[2021-03-27] MEDS ORDERED: proPOfol 200 MG/20 ML (DIPRIVAN) VIAL IV ONE (10:48)
[2021-03-27] MEDS ORDERED: ROCURONIUM 10 MG/ML 5 ML SYRINGE IV ONE (10:48)
[2021-03-27] MEDS ORDERED: fentaNYL INJ 100 MCG/2 ML AMP ONE (10:48)
--- NOTE | 2021-03-27 11:58 | Progress Note - Hospitalist ---
ROBERT SIEGEL 03/27/21 1158: Subjective HPI/CC On Admission Date Seen by Provider: Mar 27, 2021 Time Seen by Provider: 08:15 Patient is an 86-year-old female with past medical history of hypertension, hyperlipidemia, Parkinson's disease, atrial fibrillation who presented to the emergency department due to abdominal pain. This has been going on for roughly 3 days and she was seen at an urgent care 2 days ago and diagnosed with a urinary tract infection. She was prescribed Levaquin and despite this her symptoms did not improve. She had poor oral intake and decided to seek evaluation in the emergency department. CT abdomen was done along with gallbladder ultrasound which revealed cholelithiasis. She was admitted to surgery for laparoscopic cholecystectomy. I am consulted for medical management. Subjective/Events-last exam Pt scheduled for cholecystectomy today Pt in pain (12/24 laying still, 03/26 with movement) Has only eaten broth/jello the past two days No bowel movement since Saturday, CT noted lots of fecal matter in her intestines Elicassidyis on hold for surgery [employer] Laborer believed to be Dr. Marquez [place] [facility] Course: 86 yo female with past medical history of HTN, Parkinson's, HDL, a CVA and AFib presented to the emergency department due to abdominal pain that radiated to her back beginning three days prior. She went to urgent care 2 days ago and was diagnosed with a UTI. She was prescribed Levaquin. Pt presented to the ER on 03/25 after her pain did not improve. Upon admission, her BP was noted to be 210/106. CT abdomen was done along with gallbladder ultrasound which revealed cholelithiasis and mild R hydronephrosis. Pt received lisinopril on , and her BP was 171/85 on 03/27. She received a cholecystectomy by Dr. Hayes on 03/27 and will be monitored for expected recovery. Review of Systems General: Malaise Gastrointestinal: Abdominal Pain Musculoskeletal: back pain (referred from abd) Focused Exam Respiratory: Lungs Clear, Normal Breath Sounds Cardiovascular: Irregularly Irregular Skin: normal color Objective Exam Vital Signs Vital Signs Date Time Temp Pulse Resp B/P (MAP) Pulse Ox O2 Delivery O2 Flow Rate FiO2 03/27/21 09:00 93 Room Air 03/27/21 08:00 36.3 74 18 118/71 (87) 03/27/21 07:18 2.00 03/25/21 18:18 21 Capillary Refill : General Appearance: Anxious, Moderate Distress, Thin Respiratory: Lungs Clear, Normal Breath Sounds Cardiovascular: Irregularly Irregular Gastrointestinal: Other (pain (12/24 laying down, 03/26 with movement)) Neurologic/Psychiatric: Alert, Oriented x3 Skin: Normal Color Results/Procedures Lab Patient resulted labs reviewed. Imaging: Reviewed Imaging Report Assessment/Plan Assessment and Plan Assess & Plan/Chief Complaint Assessment: Cholelithiasis, abdominal pain Mild R hydronephrosis HTN AFib Parkinson's Hx CVA Hx splenectomy Plan: Cholecystectomy on 03/[address] Hayes Continue lisinopril, consider increasing dose if no BP improvement Resume Eliquis post-surgery Continue necessary meds for Parkinsons Monitor bowels, give suppository if no movement post-op Consider cardiology consult as needed FLORENCIA TAPIA DO 03/27/21 2020: ROBERT SIEGEL Mar 27, 2021 11:58 FLORENCIA TAPIA DO Mar 27, 2021 20:20
[2021-03-27] MEDS ORDERED: LIDOCAINE/EPI 1%-1:100,000 (XYLOCAINE) 20ML ONE (12:13)
[2021-03-27] MEDS: LACTATED RINGERS 1,000 ML IV SCH ×2 (12:15→20:09)
[2021-03-27] MEDS ORDERED: LACTATED RINGERS 1,000 ML IV PRN ×2 (12:15→13:30)
[2021-03-27] MEDS ORDERED: ceFAZolin INJECTION 1,000 MG ONE (12:46)
--- NOTE | 2021-03-27 12:51 | Progress Note ---
ROBERT SIEGEL 03/27/21 1251: Subjective Date Seen by a Provider: Mar 27, 2021 Time Seen by a Provider: 08:40 Subjective/Events-last exam Pt scheduled for cholecystectomy today Pt in pain (12/24 laying still, 03/26 with movement) Has only eaten broth/jello the past two days No bowel movement since Saturday, CT noted lots of fecal matter in her intestines Eliquis on hold for surgery Practice Director believed to be Dr. Marquez Hospital Course: 86 yo female with past medical history of HTN, Parkinson's, HDL, a CVA and AFib presented to the emergency department due to abdominal pain that radiated to her back beginning three days prior. She went to urgent care 2 days ago and was diagnosed with a UTI. She was prescribed Levaquin. Pt presented to the ER on 03/25 after her pain did not improve. Upon admission, her BP was noted to be 210/106. CT abdomen was done along with gallbladder ultrasound which revealed cholelithiasis and mild R hydronephrosis. Pt received lisinopril on 03/26, and her BP was 171/85 on 03/27. She received a cholecystectomy by Dr. Hayes on 03/27 and will be monitored for expected recovery. Review of Systems General: Malaise Gastrointestinal: Abdominal Pain Musculoskeletal: back pain (referred) Focused Exam Respiratory: Lungs Clear, Normal Breath Sounds Cardiovascular: Irregularly Irregular Skin: normal color Objective Exam Last Set of Vital Signs Vital Signs Date Time Temp Pulse Resp B/P (MAP) Pulse Ox O2 Delivery O2 Flow Rate FiO2 03/27/21 09:00 93 Room Air 03/27/21 08:00 36.3 74 18 118/71 (87) 03/27/21 07:18 2.00 03/25/21 18:18 21 Capillary Refill : I&O Intake and Output 03/27/21 00:00 Intake Total 1600 ml Balance 1600 ml Intake Oral 1500 ml IV Total 100 ml # Voids 15 General: Alert, Oriented X3, Moderate Distress Lungs: Clear to Auscultation Heart: Other (Hx Afib; irreg) Abdomen: Other (Pain (12/24 laying down, 03/26 moving)) Skin: No Rashes Neuro: Normal Speech Psych/Mental Status: Mental Status NL Results Lab Laboratory Tests 03/26/21 16:45: SARS-CoV-2 RNA (RT-PCR) Not Detected Assessment/Plan Assessment/Plan Assess & Plan/Chief Complaint Assessment: Cholelithiasis, abdominal pain Mild R hydronephrosis HTN AFib Parkinson's Hx CVA Hx splenectomy Plan: Cholecystectomy on 03/[address] Hayes Continue lisinopril, consider increasing dose if no BP improvement Resume Eliquis post-surgery Continue necessary meds for Parkinsons Monitor bowels, give suppository if no movement post-op Consider cardiology consult as needed MARYJANE TAPIA DO 03/28/21 0549: Subjective Subjective/Events-last exam Patient ready for cholecystectomy Plavix and Eliquis held Talked her about cardiology follow-up since she goes to Dr. Marquez now after going to Dr. Kaplan and loop recorder placed and sent to [facility] for consultation and did not require pacemaker although she remains on flecainide and anticoagulation she chose to change specialty physicians. Review of Systems General: Fatigue, Malaise Gastrointestinal: Abdominal Pain Objective Exam General: Alert, Oriented X3, Cooperative, No Acute Distress Lungs: Clear to Auscultation, Normal Air Movement Heart: Other (Hx Afib; irreg) Psych/Mental Status: Mental Status NL Assessment/Plan Assessment/Plan Assess & Plan/Chief Complaint Supportive care Check labs in morning Eliquis and Plavix to restart when surgery thinks it safe Supervisory-Addendum Brief Verification & Attestation Participated in pt care: history, MDM, physical Personally performed: exam, history, MDM, supervision of care Care discussed with: Medical Student Procedures: n/a Results interpretation: Verified all documentation Verification and Attestation of Medical Student E/M Service A medical student performed and documented this service in my presence. I reviewed and verified all information documented by the medical student and made modifications to such information, when appropriate. I personally performed the physical exam and medical decision making. Maryjane Tapia, Mar 28, 2021,05:47 ROBERT SIEGEL Mar 27, 2021 12:51 MARYJANE TAPIA DO Mar 28, 2021 05:49
[2021-03-27] MEDS ORDERED: GLYCOPYRROLATE 0.2 MG/ML (ROBINUL) 2 ML VIAL ONE (13:23)
--- NOTE | 2021-03-27 13:42 | Diagnostic Imaging Report ---
INDICATION: Abdominal pain. IMPRESSION: 11 seconds of fluoroscopy and 68 intraoperative digital images were used in surgery by Dr. Hayes during surgical cholangiogram. The images show the common duct appears mildly dilated but clear, and contrast appears to be passing into the duodenum. Dictated by: Dictated on workstation # [id number]
[2021-03-27] MEDS ORDERED: ONDANSETRON 4 MG/2 ML (SDV) Z0FRAN IVP PRN (13:45)
[2021-03-27] MEDS ORDERED: morphine INJ 10 MG/ML 1ML (SYR OR VIAL) IVP ONE (13:45)
[2021-03-27] MEDS ORDERED: fentaNYL INJ 100 MCG/2 ML AMP IVP ONE (13:45)
[2021-03-27] MEDS ORDERED: CIPR500T5 PO (13:51)
[2021-03-27] MEDS ORDERED: CARB1TAB44 PO (13:51)
[2021-03-27] MEDS ORDERED: ROPI0.5T4 PO (13:51)
[2021-03-27] MEDS ORDERED: APIX2.5T PO (13:56)
[2021-03-27] MEDS ORDERED: LOVA10TA PO (13:58)
[2021-03-27] MEDS ORDERED: ROPI1TAB PO (14:00)
[2021-03-27] MEDS ORDERED: DIAZ10TA3 PO (14:04)
[2021-03-27] MEDS ORDERED: DOCU100C37 PO (14:05)
[2021-03-27] MEDS ORDERED: FLEC100T PO (14:07)
[2021-03-27] MEDS ORDERED: ASCO500C17 PO (14:09)
[2021-03-27] MEDS ORDERED: CYAN100088 PO (14:11)
[2021-03-27] MEDS ORDERED: ZINC220T3 PO (14:11)
[2021-03-27] MEDS ORDERED: ACET-2267 PO (14:12)
[2021-03-27] MEDS ORDERED: CALC-823 PO (14:13)
[2021-03-27] MEDS ORDERED: MV-M1TAB38 PO (14:13)
[2021-03-27] MEDS ORDERED: TRAM50TA3 PO (14:24)
[2021-03-27] MEDS: fentaNYL INJ 100 MCG/2 ML AMP IVP PRN ×2 (15:36→20:12)
[2021-03-27] MEDS: lisINopril 40 MG (PRINIVIL) TABLET PO SCH (16:35)
[2021-03-27] MEDS: AMANTADINE 100 MG (SYMMETREL) CAP PO SCH ×2 (16:35→20:10)
[2021-03-27] MEDS: SIMvastatin 10 MG (ZOCOR) TAB PO SCH (16:35)
[2021-03-27] MEDS: FLECAINIDE 100 MG (TAMBOCOR) TAB PO SCH ×2 (16:35→20:10)
--- NOTE | 2021-03-27 16:36 | Progress Note-Post Operative ---
Post-Operative Progess Note Surgeon (s)/Temporary Receptionist (s) Surgeon PAOLA CHICAS DO Temporary Receptionist: Dr. Hilton to assist in retraction dissectio and closure. Pre-Operative Diagnosis symptomatic cholelithiasis Post-Operative Diagnosis symptomatic cholelithiasis, intrabodminal adhesions Procedure & Operative Findings Date of Procedure 03/27/21 Procedure Performed/Findings PROCEDURE: Laparoscopic cholecystectomy with intraoperative cholangiogram. COMPLICATIONS: None. PROCEDURE: The patient was taken to the operating suite and was prepped and draped in sterile fashion. A surgical pause was performed. Just inferior to the umbilicus, a 12 mm incision was made. Dissection was taken down to the fascia, which was then scored and grasped with a Manoj and the abdomen was then entered. A 0 Vicryl suture was placed in a [id number] fashion and a Lomeli trocar was placed and secured. Pneumoperitoneum was achieved. A 5mm trochar place in the subxyphoid and 2 in the right upper quadrant. Lots of intrabdominal adhesions present and from liver to abdominal wall. Adhesions were taken down with scissors and cautery/blunt dissection The gallbladder was then grasped and elevated. The cystic duct, and cystic artery were then dissected out. Clip was placed on the distal portion of the cystic duct which was then partially transected. An arrow catheter was inserted into the duct. The cholangiogram was then performed. No filing defects, slighly dilated ducts and contrast made its way into the duodenum. Catheter removed. Clips were placed on proximal portion of the cystic duct and then the duct was then transected. Clips were placed along the proximal and distal portion of the cystic artery which was then transected. Hook cautery was used to dissect the gallbladder from the gallbladder fossa achieving hemostasis. The gallbladder was placed in an Endobag and removed through the 12 mm trocar site. The abdomen was then reinspected. Copious amounts of irrigation were used to irrigate the abdomen and there were no signs of active bleeding. Hemostasis had been achieved. The 12 mm fascial defect was then closed with 0 Vicryl suture that had been placed in a [id number] fashion. The abdomen was then desufflated, the trocars were removed. The abdomen was then washed and dried. The skin was then closed using 4-0 Monocryl in a subcuticular fashion. The abdomen was washed and dried and Skin Affix was place over incisions. Patient tolerated the procedure well without any complications and was taken to the recovery room in stable condition. Anesthesia Type general Estimated Blood Loss Estimated blood loss (mL): minimal Specimens/Packing Specimens Removed gallbladder PAOLA CHICAS DO Mar 27, 2021 16:36
[2021-03-27] MEDS: cefTRIAXone 1,000 MG/SWFI 10 ML IV PUSH IV SCH ×2 (20:11)
[2021-03-27] MEDS ORDERED: ACETAMINOPHEN 500 MG TAB (TYLENOL) PO PRN (20:30)
[2021-03-27] MEDS ORDERED: NON-FORMULARY MEDICATION 1 EA EA (Diazepam 10 MG) PO PRN (20:30)
[2021-03-27] MEDS ORDERED: NON-FORMULARY MEDICATION 1 EA EA (Lovastatin 10 MG) PO SCH (21:00)
[2021-03-27] MEDS ORDERED: LEVODOPA PO SCH (21:00)
[2021-03-27] MEDS ORDERED: FLECAINIDE 100 MG (TAMBOCOR) TAB PO SCH (21:00)
[2021-03-27] MEDS ORDERED: rOPINIRole 1 MG (REQUIP) TABLET PO SCH (21:00)
[2021-03-27] MEDS ORDERED: CARBIDOPA PO SCH (21:00)
[2021-03-27] MEDS ORDERED: [UNRECOGNIZED DRUG - OTHER] PO SCH (21:00)
[2021-03-27] MEDS ORDERED: NON-FORMULARY MEDICATION 1 EA EA (Ropinirole HCl 0.5 MG) PO SCH (21:00)
[2021-03-27] MEDS: DOCUSATE SODIUM 100 MG (COLACE) CAP PO SCH (21:05)
[2021-03-28] MEDS: HYDROcodone/APAP 5 MG/325 MG (LORTAB) TAB PO PRN ×3 (03:35→16:04)
[2021-03-28 04:00] VITALS: BP 147/77
[2021-03-28 06:22] LABS: BASOPHILS % (AUTO) 0 % (0-10); EOSINOPHILS % (AUTO) 0 % (0-10); HEMATOCRIT 41 % (35-52); HEMOGLOBIN 12.7 g/dL (11.5-16.0); LYMPHOCYTES # (AUTO) 0.9 10^3/uL (1.0-4.0); LYMPHOCYTES % (AUTO) 11 % (12-44); MEAN CORPUSCULAR HEMOGLOBIN 28 pg (25-34); MEAN CORPUSCULAR HGB CONC 31 g/dL (32-36); MEAN CORPUSCULAR VOLUME 89 fL (80-99); MEAN PLATELET VOLUME 10.3 fL (9.0-12.2); MONOCYTES # (AUTO) 0.9 10^3/uL (0.0-1.0); MONOCYTES % (AUTO) 10 % (0-12); NEUTROPHILS # (AUTO) 6.6 10^3/uL (1.8-7.8); NEUTROPHILS % (AUTO) 78 % (42-75); PLATELET COUNT 238 10^3/uL (130-400); WHITE BLOOD COUNT 8.4 10^3/uL (4.3-11.0)
[2021-03-28 06:23] LABS: ALBUMIN 3.2 GM/DL (3.2-4.5); POTASSIUM 3.6 MMOL/L (3.6-5.0)
[2021-03-28 06:24] LABS: CALCIUM 8.9 MG/DL (8.5-10.1)
[2021-03-28 06:25] LABS: TOTAL PROTEIN 6.1 GM/DL (6.4-8.2)
[2021-03-28 06:27] LABS: BILIRUBIN,TOTAL 0.5 MG/DL (0.1-1.0)
[2021-03-28 06:29] LABS: CREATININE SERUM 0.76 MG/DL (0.60-1.30)
--- NOTE | 2021-03-28 07:37 | Progress Note - Surgery ---
CANDIDAMIAK A MED STUDENT 03/28/21 0737: Subjective Date Seen by a Provider: Mar 28, 2021 Time Seen by a Provider: 07:15 Subjective/Events-last exam Pt up in bed this morning, states she is feeling much better today. Pt reports her epigastric pain has improved, but complains of pain in her shoulders. Advised pt that this is likely d/t gas from surgery. Denies N/V/D, fever, chills, chest pain or SOA. Pt states she is ready for discharge today. Review of Systems General: No Chills, No Fatigue HEENT: No Head Aches, No Visual Changes Pulmonary: No Dyspnea, No Cough Cardiovascular: No: Chest Pain, Palpitations Gastrointestinal: Abdominal Pain (improved from yesterday); No: Nausea, Vomiting, Diarrhea, Constipation Genitourinary: No Dysuria, No Frequency Musculoskeletal: back pain; No: neck pain Neurological: No: Weakness, Numbness Objective Exam Vital Signs Date Time Temp Pulse Resp B/P (MAP) Pulse Ox O2 Delivery O2 Flow Rate FiO2 03/28/21 04:00 36.6 76 18 147/77 (100) 96 Nasal Cannula 2.00 03/28/21 01:00 58 03/27/21 23:47 36.7 67 18 143/80 (101) 97 Room Air 03/27/21 20:10 74 03/27/21 20:09 95 Nasal Cannula 2.00 03/27/21 20:00 36.4 71 18 140/82 (101) 94 Room Air 03/27/21 19:06 88 Room Air 03/27/21 19:00 67 03/27/21 16:00 36.3 75 18 196/94 (128) 100 Nasal Cannula 1.50 03/27/21 14:51 36.5 74 18 184/93 (123) 98 Room Air 03/27/21 14:30 Room Air 03/27/21 14:25 36.7 14 201/108 (139) 95 Room Air 03/27/21 14:10 16 197/100 (132) 94 OxyMask 2 03/27/21 14:00 OxyMask 2 03/27/21 14:00 17 200/110 (140) 98 OxyMask 2 03/27/21 13:50 21 192/108 (136) 97 OxyMask 3 03/27/21 13:40 20 164/106 (125) 97 OxyMask 4 03/27/21 13:38 36.4 20 171/108 (129) 98 OxyMask 6 03/27/21 13:38 OxyMask 6 03/27/21 12:00 36.8 72 20 202/111 (141) 95 Room Air 03/27/21 09:00 93 Room Air 03/27/21 08:00 36.3 74 18 118/71 (87) 93 Room Air I & O 03/28/21 07:00 Intake Total 2300 ml Output Total 850 ml Balance 1450 ml Capillary Refill : General Appearance: No Apparent Distress, Thin HEENT: PERRL/EOMI, Normal ENT Inspection Neck: Normal Inspection, Supple Respiratory: Chest Non Tender, Lungs Clear, Normal Breath Sounds, No Accessory Muscle Use, No Respiratory Distress Cardiovascular: Regular Rate, Rhythm, No Gallop, No Murmur Gastrointestinal: normal bowel sounds, soft, tenderness (epigastric, near abdominal incisions) Extremity: Normal Capillary Refill, Non Tender Neurologic/Psychiatric: Alert, Oriented x3, No Motor/Sensory Deficits, Normal Mood/Affect Skin: Normal Color, Warm/Dry, Other (four nonpurulent abdominal incisions without erythema or edema) Lymphatic: No Adenopathy Results Lab Laboratory Tests 03/28/21 06:00: White Blood Count 8.4, Red Blood Count 4.54, Hemoglobin 12.7, Hematocrit 41, Mean Corpuscular Volume 89, Mean Corpuscular Hemoglobin 28, Mean Corpuscular Hemoglobin Concent 31L, Red Cell Distribution Width 14.3, Platelet Count 238, Mean Platelet Volume 10.3, Immature Granulocyte % (Auto) 0, Neutrophils (%) (Auto) 78H, Lymphocytes (%) (Auto) 11L, Monocytes (%) (Auto) 10, Eosinophils (%) (Auto) 0, Basophils (%) (Auto) 0, Neutrophils # (Auto) 6.6, Lymphocytes # (Auto) 0.9L, Monocytes # (Auto) 0.9, Eosinophils # (Auto) 0.0, Basophils # (Auto) 0.0, Immature Granulocyte # (Auto) 0.0, Sodium Level 139, Potassium Level 3.6, Ch loride Level 100, Carbon Dioxide Level 28, Anion Gap 11, Blood Urea Nitrogen 13, Creatinine 0.76, Estimat Glomerular Filtration Rate 73, BUN/Creatinine Ratio 17, Glucose Level 102, Calcium Level 8.9, Corrected Calcium 9.5, Total Bilirubin 0.5, Aspartate Amino Transf (AST/SGOT) 13, Alanine Aminotransferase (ALT/SGPT) 6, Alkaline Phosphatase 78, Total Protein 6.1L, Albumin 3.2 Microbiology 03/26/21 MRSA Screen - Final, Complete MRSA not isolated Assessment/Plan Assessment/Plan Admission Diagonsis Symptomatic cholelithiasis Assessment/Plan Epigastric abdominal pain Symptomatic cholelithiasis Long-term anticoagulation Atrial fibrillation Epigastric abdominal pain -Improved today, some soreness d/t cholecystectomy incisions Symptomatic cholelithiasis -Post op day 1 from cholecystectomy, pain improved -WBC normal at 8.4 senior care anticoagulation -Restart Eliquis Afib Plan to discharge to home today JJ HAYES DO 04/08/21 1551: Subjective Subjective/Events-last exam Feeling well. pain controlled. tolerating diet. Denies n/v fever sweats chills shortness of breath or chest pain. Objective Exam General Appearance: No Apparent Distress HEENT: PERRL/EOMI, Normal ENT Inspection Neck: Normal Inspection Respiratory: Chest Non Tender, No Accessory Muscle Use, No Respiratory Distress Cardiovascular: Regular Rate, Rhythm, No JVD Gastrointestinal: soft, tenderness (incisional) Extremity: Normal Capillary Refill, Non Tender Neurologic/Psychiatric: Alert, Oriented x3, No Motor/Sensory Deficits, Normal Mood/Affect Skin: Normal Color, Warm/Dry Lymphatic: No Adenopathy Assessment/Plan Assessment/Plan Assessment/Plan Epigastric abdominal pain Symptomatic cholelithiasis Long-term anticoagulation Atrial fibrillation Epigastric abdominal pain -Improved today, some soreness d/t cholecystectomy incisions Symptomatic cholelithiasis -Post op day 1 from cholecystectomy, pain improved -WBC normal at 8.4 senior care anticoagulation -Restart Eliquis Afib Plan to discharge to home today Supervisory-Addendum Brief Verification & Attestation Participated in pt care: history, MDM, physical Personally performed: exam, history, MDM, supervision of care Care discussed with: Medical Student Procedures: n/a Results interpretation: Verified all documentation Verification and Attestation of Medical Student E/M Service A medical student performed and documented this service in my presence. I reviewed and verified all information documented by the medical student and made modifications to such information, when appropriate. I personally performed the physical exam and medical decision making. Jj Hayes, Mar 28, 2021,15:51 MIKA TIRADO MED STUDENT Mar 28, 2021 07:37 JJ HAYES DO Apr 08, 2021 15:51
[2021-03-28 08:00] VITALS: BP 160/84
[2021-03-28] MEDS ORDERED: ZINC SULFATE 220 MG CAPSULE PO SCH (08:00)
[2021-03-28] MEDS: SIMvastatin 10 MG (ZOCOR) TAB PO SCH (08:16)
[2021-03-28] MEDS: lisINopril 40 MG (PRINIVIL) TABLET PO SCH (08:16)
[2021-03-28] MEDS: FLECAINIDE 100 MG (TAMBOCOR) TAB PO SCH (08:16)
[2021-03-28] MEDS: DOCUSATE SODIUM 100 MG (COLACE) CAP PO SCH (08:16)
[2021-03-28] MEDS: SINEMET 25/100 (CARBIDOPA/LEVODOPA) TAB PO SCH ×2 (08:17→13:22)
[2021-03-28] MEDS: rOPINIRole 1 MG (REQUIP) TABLET PO SCH ×2 (08:25→13:22)
[2021-03-28] MEDS: AMANTADINE 100 MG (SYMMETREL) CAP PO SCH (08:25)
[2021-03-28] MEDS: metroNIDAZOLE 500 MG/100 ML IVPB (PRE-MIX) IV SCH (08:55)
[2021-03-28] MEDS ORDERED: CALCIUM CARBONATE 500 MG (TUMS) TAB.CHEW PO SCH (09:00)
[2021-03-28] MEDS ORDERED: ASCORBIC ACID (VIT C) 500 MG TABLET PO SCH (09:00)
[2021-03-28] MEDS ORDERED: CYANOCOBALAMIN 1,000 MCG (VITAMIN B-12) TABLET PO SCH (09:00)
[2021-03-28] MEDS ORDERED: MULTIVIT W/MINERALS TAB (THERAGRAN M) PO SCH (09:00)
[2021-03-28 12:00] VITALS: BP 172/83
--- NOTE | 2021-03-28 12:30 | Progress Note ---
ROBERT SIEGEL 03/28/21 1230: Progress Note 86 yo female with past medical history of HTN, Parkinson's, HDL, a CVA and AFib presented to the emergency department due to abdominal pain that radiated to her back beginning three days prior. She had gone to urgent care 2 days prior and was diagnosed with a UTI. She was prescribed Levaquin. Pt pr esented to the ER on 03/25 after her pain did not improve. Upon admission, her BP was noted to be 210/106. CT abdomen was done along with gallbladder ultrasound which revealed cholelithiasis and mild R hydronephrosis. She received a cholecystectomy by Dr. Hayes on 03/27. Fluoroscopy noted that the common bile duct was dilated, but clear. Pt sore the next day in hips and shoulders, was advised this is likely gas pain. She was passing flatus, but had no bowel movements since last Saturday. Incisions were intact and dry. Pt eating jello and drinking water, moving better than prior to the cholecystectomy. Pt to be d/c on 03/28, with plans to resume Eliquis and Plavix after Dr. Hayes is consulted. Pt has and two daughters at home to help with recuperation. MARYJANE TAPIA DO 03/29/21 0500: Supervisory-Addendum Brief Verification & Attestation Participated in pt care: history, MDM, physical Personally performed: exam, history, MDM, supervision of care Care discussed with: Medical Student Procedures: n/a Results interpretation: Verified all documentation Verification and Attestation of Medical Student E/M Service A medical student performed and documented this service in my presence. I reviewed and verified all information documented by the medical student and made modifications to such information, when appropriate. I personally performed the physical exam and medical decision making. Maryjane Tapia Mar 29, 2021,05:00 ROBERT SIEGEL Mar 28, 2021 12:30 MARYJANE TAPIA DO Mar 29, 2021 05:00
--- NOTE | 2021-03-28 14:46 | Anesthesia-General Post-Op ---
General Patient Condition Mental Status/LOC: Same as Preop Cardiovascular: Satisfactory Nausea/Vomiting: Absent Respiratory: Satisfactory Pain: Controlled Complications: Absent Post Op Complications Complications None Follow Up Care/Instructions Patient Instructions None needed. Anesthesia/Patient Condition Patient Condition Patient is doing well, no complaints, stable vital signs, no apparent adverse anesthesia problems. No complications reported per nursing. GUERO COURTNEY CRNA Mar 28, 2021 14:46
[2021-03-28 15:38] VITALS: BP 169/76
[2021-03-28] MEDS ORDERED: ACHD5005 PO (16:26)
--- NOTE | 2021-03-28 16:29 | Discharge Inst-Simple/Standard ---
Discharge Inst-Standard Discharge Medications New, Converted or Re-Newed RX: Transmitted to Pharmacy Patient Instructions/Follow Up Plan of Care/Instructions/FU: 2 weeks Freddy Activity as Tolerated: No Discharge Diet: Regular Diet Other Inst to Patient Follow up Appt: Make appointment for 2 weeks. Instructions: No lifting greater than 10 pounds. No strenuous activity. May shower in 24 hours, no tub bath or soaking. Use incentive spirometer at home as directed. No Smoking Skin/Wound Care: You have special glue over incision, it will fall off on it's own. Symptoms to Report: Appetite Changes, Extremity Discoloration, Numbness/Tingling, Swelling Increased, Bleeding Excessive, Eyesight Changes, Pain Increased, Urine Color Change, Constipation(Persistent), Fever over 101 degree F, Pain/Pressure in chest, Urinating Difficulty, Cough Up/Vomit Blood, Heart Beat Irreg/Pounding, Pain/Pressure in jaw, Vaginal Bleeding Increase, Cramps in feet or legs, Lightheadedness, Pain/Pressure in shoulder, Diarrhea(Persistent), Memory Changes Suddenly, Questions/Concerns, Weight gain consecutive days, Dizziness/Fainting, Nausea/Vomiting, Shortness of Breath, Weight gain over 2 pounds. If eyes or skin turn yellow notify physician. If questions or concerns contact your physician Or seek help at emergency department. PAOLA CHICAS DO Mar 28, 2021 16:29
--- NOTE | 2021-03-28 21:11 | Discharge Summary ---
Diagnosis/Chief Complaint Date of Admission Mar 25, 2021 at 15:52 Date of Discharge Mar 28, 2021 at 17:25 Discharge Date: Mar 28, 2021 Discharge Diagnosis Symptomatic cholelithiasis status post cholecystectomy A. fib CAD Parkinson's Discharge Summary Discharge Physical Examination Allergies: Coded Allergies: Sulfa (Sulfonamide Antibiotics) (Verified Allergy, Unknown, hives, 11/16/19) Vitals & I&Os Vital Signs Date Time Temp Pulse Resp B/P (MAP) Pulse Ox O2 Delivery O2 Flow Rate FiO2 03/28/21 15:38 36.3 54 20 169/76 (107) 99 Nasal Cannula 2.00 03/25/21 18:18 21 General Appearance: Alert, Oriented X3, Cooperative Respiratory: Clear to Auscultation Cardiovascular: Regular Rate Psych/Mental Status: Mental Status NL Hospital Course Was the Problem List Reviewed?: Yes 86 yo female with past medical history of HTN, Parkinson's, HDL, a CVA and AFib presented to the emergency department due to abdominal pain that radiated to her back beginning three days prior. She had gone to urgent care 2 days prior and was diagnosed with a UTI. She was prescribed Levaquin. Pt presented to the ER on 03/25 after her pain did not improve. Upon admission, her BP was noted to be 210/106. CT abdomen was done along with gallbladder ultrasound which revealed cholelithiasis and mild R hydronephrosis. She received a cholecystectomy by Dr. Hayes on 03/27. Fluoroscopy noted that the common bile duct was dilated, but clear. Pt sore the next day in hips and shoulders, was advised this is likely gas pain. She was passing flatus, but had no bowel movements since last Saturday. Incisions were intact and dry. Pt eating jello and drinking water, moving better than prior to the cholecystectomy. Pt to be d/c on 03/28, with plans to resume Eliquis and Plavix after Dr. Hayes is consulted. Pt has and two daughters at home to help with recuperation. ROBERT SIEGEL Labs (last 24 hrs) Laboratory Tests 03/25/21 12:40: White Blood Count 7.3, Red Blood Count 4.72, Hemoglobin 13.1, Hematocrit 43, Mean Corpuscular Volume 90, Mean Corpuscular Hemoglobin 28, Mean Corpuscular Hemoglobin Concent 31L, Red Cell Distribution Width 14.5, Platelet Count 255, Mean Platelet Volume 10.4, Immature Granulocyte % (Auto) 0, Neutrophils (%) (Auto) 64, Lymphocytes (%) (Auto) 24, Monocytes (%) (Auto) 11, Eosinophils (%) (Auto) 2, Basophils (%) (Auto) 1, Neutrophils # (Auto) 4.7, Lymphocytes # (Auto) 1.7, Monocytes # (Auto) 0.8, Eosinophils # (Auto) 0.1, Basophils # (Auto) 0.0, Immature Granulocyte # (Auto) 0.0, Sodium Level 141, Potassium Level 3.9, Chloride Level 103, Carbon Dioxide Level 26, Anion Gap 12, Blood Urea Nitrogen 17, Creatinine 0.73, Estimat Glomerular Filtration Rate 76, BUN/Creatinine Ratio 23, Glucose Level 93, Calcium Level 9.5, Corrected Calcium 9.6, Total Bilirubin 0.5, Aspartate Amino Transf (AST/SGOT) 11, Alanine Aminotransferase (ALT/SGPT) 6, Alkaline Phosphatase 88, Total Protein 7.4, Albumin 3.9, Lipase 13 03/25/21 14:00: Urine Color YELLOW, Urine Clarity CLEAR, Urine pH 7.0, Urine Specific [place] 1.020, Urine Protein NEGATIVE, Urine Glucose (UA) NEGATIVE, Urine Ketones NEGATIVE, Urine Nitrite NEGATIVE, Urine Bilirubin NEGATIVE, Urine Urobilinogen 0.2, Urine Leukocyte Esterase NEGATIVE, Urine RBC (Auto) NEGATIVE, Urine RBC NONE, Urine WBC NONE, Urine Squamous Epithelial Cells 0-2, Urine Crystals NONE, Urine Bacteria NEGATIVE, Urine Casts NONE, Urine Mucus NEGATIVE, Urine Culture Indicated NO 03/26/21 16:45: SARS-CoV-2 RNA (RT-PCR) Not Detected 03/28/21 06:00: White Blood Count 8.4, Red Blood Count 4.54, Hemoglobin 12.7, Hematocrit 41, Mean Corpuscular Volume 89, Mean Corpuscular Hemoglobin 28, Mean Corpuscular Hemoglobin Concent 31L, Red Cell Distribution Width 14.3, Platelet Count 238, Mean Platelet Volume 10.3, Immature Granulocyte % (Auto) 0, Neutrophils (%) (Auto) 78H, Lymphocytes (%) (Auto) 11L, Monocytes (%) (Auto) 10, Eosinophils (%) (Auto) 0, Basophils (%) (Auto) 0, Neutrophils # (Auto) 6.6, Lymphocytes # (Auto) 0.9L, Monocytes # (Auto) 0.9, Eosinophils # (Auto) 0.0, Basophils # (Auto) 0.0, Immature Granulocyte # (Auto) 0.0, Sodium Level 139, Potassium Level 3.6, Chloride Level 100, Carbon Dioxide Level 28, Anion Gap 11, Blood Urea Nitrogen 13, Creatinine 0.76, Estimat Glomerular Filtration Rate 73, BUN/Creatinine Ratio 17, Glucose Level 102, Calcium Level 8.9, Corrected Calcium 9.5, Total Bilirubin 0.5, Aspartate Amino Transf (AST/SGOT) 13, Alanine Aminotransferase (ALT/SGPT) 6, Alkaline Phosphatase 78, Total Protein 6.1L, Albumin 3.2 Microbiology 03/26/21 MRSA Screen - Final, Complete MRSA not isolated Pending Labs Microbiology Date/Time Source Procedure Growth Status 03/26/21 16:45 Nasal MRSA Screen - Final MRSA not isolated Complete Laboratory Tests 03/25/21 12:40: White Blood Count 7.3, Red Blood Count 4.72, Hemoglobin 13.1, Hematocrit 43, Mean Corpuscular Volume 90, Mean Corpuscular Hemoglobin 28, Mean Corpuscular Hemoglobin Concent 31, Red Cell Distribution Width 14.5, Platelet Count 255, Mean Platelet Volume 10.4, Immature Granulocyte % (Auto) 0, Neutrophils (%) (Auto) 64, Lymphocytes (%) (Auto) 24, Monocytes (%) (Auto) 11, Eosinophils (%) (Auto) 2, Basophils (%) (Auto) 1, Neutrophils # (Auto) 4.7, Lymphocytes # (Auto) 1.7, Monocytes # (Auto) 0.8, Eosinophils # (Auto) 0.1, Basophils # (Auto) 0.0, Immature Granulocyte # (Auto) 0.0, Sodium Level 141, Potassium Level 3.9, Chloride Level 103, Carbon Dioxide Level 26, Anion Gap 12, Blood Urea Nitrogen 17, Creatinine 0.73, Estimat Glomerular Filtration Rate 76, BUN/Creatinine Ratio 23, Glucose Level 93, Calcium Level 9.5, Corrected Calcium 9.6, Total Bilirubin 0.5, Aspartate Amino Transf (AST/SGOT) 11, Alanine Aminotransferase (ALT/SGPT) 6, Alkaline Phosphatase 88, Total Protein 7.4, Albumin 3.9, Lipase 13 03/25/21 14:00: Urine Color YELLOW, Urine Clarity CLEAR, Urine pH 7.0, Urine Specific [place] 1.020, Urine Protein NEGATIVE, Urine Glucose (UA) NEGATIVE, Urine Ketones NEGATIVE, Urine Nitrite NEGATIVE, Urine Bilirubin NEGATIVE, Urine Urobilinogen 0.2, Urine Leukocyte Esterase NEGATIVE, Urine RBC (Auto) NEGATIVE, Urine RBC NONE, Urine WBC NONE, Urine Squamous Epithelial Cells 0-2, Urine Crystals NONE, Urine Bacteria NEGATIVE, Urine Casts NONE, Urine Mucus NEGATIVE, Urine Culture Indicated NO 03/26/21 16:45: SARS-CoV-2 RNA (RT-PCR) Not Detected 03/28/21 06:00: White Blood Count 8.4, Red Blood Count 4.54, Hemoglobin 12.7, Hematocrit 41, Mean Corpuscular Volume 89, Mean Corpuscular Hemoglobin 28, Mean Corpuscular Hemoglobin Concent 31, Red Cell Distribution Width 14.3, Platelet Count 238, Mean Platelet Volume 10.3, Immature Granulocyte % (Auto) 0, Neutrophils (%) (Auto) 78, Lymphocytes (%) (Auto) 11, Monocytes (%) (Auto) 10, Eosinophils (%) (Auto) 0, Basophils (%) (Auto) 0, Neutrophils # (Auto) 6.6, Lymphocytes # (Auto) 0.9, Monocytes # (Auto) 0.9, Eosinophils # (Auto) 0.0, Basophils # (Auto) 0.0, Immature Granulocyte # (Auto) 0.0, Sodium Level 139, Potassium Level 3.6, Chloride Level 100, Carbon Dioxide Level 28, Anion Gap 11, Blood Urea Nitrogen 13, Creatinine 0.76, Estimat Glomerular Filtration Rate 73, BUN/Creatinine Ratio 17, Glucose Level 102, Calcium Level 8.9, Corrected Calcium 9.5, Total Bilirubin 0.5, Aspartate Amino Transf (AST/SGOT) 13, Alanine Aminotransferase (ALT/SGPT) 6, Alkaline Phosphatase 78, Total Protein 6.1, Albumin 3.2 Discharge Home Medications: Active Scripts Active Hydrocodone-Acetamin 5-325 mg (Hydrocodone/Acetaminophen) 1 Each Tablet 1 Each PO Q4H PRN Reported Tramadol HCl 50 Mg Tablet 50 Mg PO TID PRN Calcium (Calcium Carbonate) 500 Mg Tablet 500 Mg PO DAILY Ocuvite Eye + Multi Tablet (Mv-Mn/FA/Vit K/Lycop/Lut/Zeaxa) 1 Each Tablet 1 Each PO DAILY Tylenol Extra Strength (Acetaminophen) 500 Mg Tablet 500 Mg PO Q8H PRN B-12 (Cyanocobalamin (Vitamin B-12)) 1,000 Mcg Tablet 1,000 Mcg PO DAILY Zinc (Zinc Sulfate) 50 Mg Tablet 50 Mg PO DAILY Vitamin C (Ascorbic Acid) 500 Mg Capsule 500 Mg PO DAILY Flecainide Acetate 100 Mg Tablet 100 Mg PO BID Docusate Sodium 100 Mg Capsule 200 Mg PO BID Diazepam 10 Mg Tablet 10 Mg PO HS PRN Ropinirole HCl 1 Mg Tablet 1 Mg PO TID TAKES 1MG + 0.5MG TOGETHER TO EQUAL 1.5MG Lovastatin 10 Mg Tablet 10 Mg PO HS Eliquis (Apixaban) 2.5 Mg Tablet 2.5 Mg PO BID Carbidopa-Levo 25-100 mg Odt (Carbidopa/Levodopa) 1 Each Tab.rapdis 1.5 Each PO QID Ropinirole HCl 0.5 Mg Tablet 0.5 Mg PO TID TAKES 1MG + 0.5MG TOGETHER TO EQUAL 1.5MG Ciprofloxacin HCl 500 Mg Tablet 500 Mg PO BID FILLED 03-24-2021 #10/5 DAY SUPPLY Instructions to patient/family Please see electronic discharge instructions given to patient. FLORENCIA TAPIA DO Mar 28, 2021 21:11
== END 2021-03-28 17:25 | disposition home or self-care (01) ==
LOC: EDUNIT# 12:13 → ER 12:16 → INTOOBSV 15:52 → UNDOADMOB 15:52 → 4TH 15:52 → SDC 17:45 → 4TH 03-28 15:58 → UNDODISOB 03-28 17:25 → SDC 03-28 17:25
PROVIDERS: ATTEND Surgery
DX: K80.10 Calculus of gallbladder with chronic cholecystitis without obstruction (principal); K66.0 Peritoneal adhesions (postprocedural) (postinfection); I48.91 Unspecified atrial fibrillation; G20 Parkinson's disease; M19.90 Unspecified osteoarthritis, unspecified site; G89.29 Other chronic pain; M54.9 Dorsalgia, unspecified; F41.9 Anxiety disorder, unspecified; N39.0 Urinary tract infection, site not specified; E78.5 Hyperlipidemia, unspecified; I11.9 Hypertensive heart disease without heart failure; Z79.899 Other long term (current) drug therapy; Z79.01 Long term (current) use of anticoagulants; Z79.82 Long term (current) use of aspirin; Z79.1 Long term (current) use of non-steroidal anti-inflammatories (NSAID); Z79.891 Long term (current) use of opiate analgesic; Z90.81 Acquired absence of spleen; Z87.891 Personal history of nicotine dependence
CPT/HCPCS: 47563; 74177; 76000; 76705; 80053 ×2; 81000; 83690; 85025 ×2; 87081; 87636; 88304; 93005; 94760 ×2; 96361; 96374; 96375; 96376; 99284; G0378; 36415

== ENCOUNTER 2022-01-09 08:18 | Emergency (ER) | payer MEDICARE, OTHER ==
[~2022-01-09] VITALS: Ht 167 cm; Wt 52.1 kg
[~2022-01-09 08:18] MED LIST changes: +ACET-2267 PO; +AMAN100T PO; -AMIO200T6 PO; +AMIO200T65 PO; +ASCO500C17 PO; +ASCO500T72 PO; +CALC-823 PO; +CARB1TAB44 PO; +CIPR500T5 PO; +CYAN100088 PO; +DOCU100T2 PO; +FLEC100T PO; +LISI40TA9 PO; +MV-M1TAB38 PO; +ROPI0.5T4 PO; +TRAM50TA3 PO; +UMEC1BLS IH; +ZINC220T3 PO
[2022-01-09] MEDS ORDERED: fentaNYL INJ 100 MCG/2 ML AMP IVP STA (08:41)
[2022-01-09] MEDS ORDERED: NS IV 500 ML 500 ML IV ONE (08:45)
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
[2022-01-09 08:52] LABS: BASOPHILS # (AUTO) 0.1 10^3/uL (0.0-0.1); BASOPHILS % (AUTO) 1 % (0-10); EOSINOPHILS # (AUTO) 0.1 10^3/uL (0.0-0.3); EOSINOPHILS % (AUTO) 2 % (0-10); HEMATOCRIT 43 % (35-52); HEMOGLOBIN 13.3 g/dL (11.5-16.0); LYMPHOCYTES # (AUTO) 2.1 10^3/uL (1.0-4.0); LYMPHOCYTES % (AUTO) 30 % (12-44); MEAN CORPUSCULAR HEMOGLOBIN 28 pg (25-34); MEAN CORPUSCULAR HGB CONC 31 g/dL (32-36); MEAN CORPUSCULAR VOLUME 89 fL (80-99); MEAN PLATELET VOLUME 10.2 fL (9.0-12.2); MONOCYTES # (AUTO) 0.5 10^3/uL (0.0-1.0); MONOCYTES % (AUTO) 8 % (0-12); NEUTROPHILS # (AUTO) 4.2 10^3/uL (1.8-7.8); NEUTROPHILS % (AUTO) 60 % (42-75); PLATELET COUNT 248 10^3/uL (130-400)
[2022-01-09 09:12] LABS: MAGNESIUM 1.9 MG/DL (1.6-2.4)
[2022-01-09 09:17] LABS: BILIRUBIN,URINE NEGATIVE (NEGATIVE); CLARITY,URINE CLEAR; COLOR,URINE YELLOW; GLUCOSE, URINE (UA) NEGATIVE (NEGATIVE); KETONES,URINE NEGATIVE (NEGATIVE); LEUKOCYTE ESTERASE ,URINE NEGATIVE (NEGATIVE); NITRITE,URINE NEGATIVE (NEGATIVE); PROTEIN,URINE NEGATIVE (NEGATIVE)
[2022-01-09 09:24] LABS: BACTERIA,URINE NEGATIVE /HPF; RBC,URINE 0-2 /HPF; SQUAMOUS EPITHELIAL CELL,UR RARE /HPF
--- NOTE | 2022-01-09 09:31 | Diagnostic Imaging Report ---
EXAMINATION: Chest 1 view HISTORY: chest pain COMPARISON: 12/14/2019 FINDINGS: Heart size is enlarged. Pulmonary vasculature is normal. There are mild interstitial opacities in the lung bases. No pleural effusion or pneumothorax. Chronic deformity of the right shoulder. Surgical changes from left shoulder arthroplasty. IMPRESSION: 1. Cardiomegaly with mild interstitial opacities in the lung bases. These findings can be seen with pulmonary edema, atelectasis, or atypical infection. Dictated by: Dictated on workstation # [id number]
[2022-01-09 09:32] LABS: ALBUMIN 3.9 GM/DL (3.2-4.5)
[2022-01-09 09:33] LABS: CHLORIDE 103 MMOL/L (98-107); POTASSIUM 3.3 MMOL/L (3.6-5.0); SODIUM 142 MMOL/L (135-145)
[2022-01-09 09:34] LABS: CALCIUM 9.2 MG/DL (8.5-10.1)
[2022-01-09 09:35] LABS: GLUCOSE 89 MG/DL (70-105); TOTAL PROTEIN 7.3 GM/DL (6.4-8.2)
[2022-01-09 09:36] LABS: CARBON DIOXIDE 27 MMOL/L (21-32)
[2022-01-09 09:37] LABS: BILIRUBIN,TOTAL 0.7 MG/DL (0.1-1.0)
[2022-01-09 09:38] LABS: ALKALINE PHOSPHATASE 68 U/L (40-136); CREATININE SERUM 0.79 MG/DL (0.60-1.30); GFR ESTIMATED 74
[2022-01-09 09:40] LABS: BUN/CREATININE RATIO 22
[2022-01-09 09:41] LABS: ALANINE AMINOTRANSFERASE < 6 U/L (0-55)
[2022-01-09] MEDS ORDERED: HYDROcodone/APAP 5 MG/325 MG (LORTAB) TAB PO ONE (11:00)
[2022-01-09] MEDS ORDERED: ACHD5005 PO (11:06)
[2022-01-09 11:11] VITALS: BP 173/100
== END 2022-01-09 11:11 | disposition home or self-care (01) ==
LOC: EDUNIT# 08:18 → ER 08:21
DX: M54.9 Dorsalgia, unspecified (principal); Z87.891 Personal history of nicotine dependence; Z87.440 Personal history of urinary (tract) infections; Z79.2 Long term (current) use of antibiotics; Z79.52 Long term (current) use of systemic steroids
CPT/HCPCS: 36415; 51701; 71045; 80053; 81000; 83735; 84484; 85025; 85027; 86141; 93005; 93041

== ENCOUNTER → 2022-01-23 | Outpatient (CLI) | payer MEDICARE, OTHER ==
--- NOTE | 2022-01-23 14:47 | Diagnostic Imaging Report ---
INDICATION: Back pain. TIME OF EXAM: 2:28 PM. FINDINGS: AP and lateral views of the thoracic spine were obtained. There is some mild thoracolumbar scoliotic curvature present. There are kyphoplasty changes at T12 and L1. The thoracic vertebrae show fairly normal stature. No acute compression fracture is seen. There is significant multilevel degenerative disc disease with disc space narrowing and marginal spurring. The pedicles and paraspinous line are intact. IMPRESSION: Thoracic spondylosis. No acute bony abnormality is detected. Dictated by: Dictated on workstation # [id number]
--- NOTE | 2022-01-23 14:47 | Diagnostic Imaging Report ---
INDICATION: Back pain. TIME OF EXAM: 2:15 PM. COMPARISON: Correlation is made with the most recent MRI of the lumbar spine from 01/13/2021. FINDINGS: The curvature and alignment are normal. There are kyphoplasty changes at T12 and L1. Superior endplate compressions involving the L2 and L3 vertebral bodies are noted and appear more chronic. The L4 and L5 vertebral bodies show normal stature. There is diffuse demineralization. There is multilevel degenerative disc and facet disease. The abdominal aorta is heavily calcified. IMPRESSION: Chronic and post surgical changes of the lumbar spine. If there is concern for a new compression fracture, MRI would be useful for further evaluation. Dictated by: Dictated on workstation # [id number]
== END ==
LOC: RAD 13:54
PROVIDERS: ATTEND Internal Medicine
DX: M47.814 Spondylosis without myelopathy or radiculopathy, thoracic region (principal)
CPT/HCPCS: 72072; 72100

== ENCOUNTER 2022-08-21 01:34 | Inpatient (IN) | payer MEDICARE, OTHER ==
[~2022-08-21] VITALS: Ht 167 cm; Wt 56.4 kg
[2022-08-21] VITALS (7 sets, daily range): BP systolic 95–190; BP diastolic 57–95
[~2022-08-21 01:34] MED LIST changes: -CARB1TAB19 PO; +CARB1TAB32 PO
[2022-08-21 01:58] LABS: BASOPHILS # (AUTO) 0.1 10^3/uL (0.0-0.1); BASOPHILS % (AUTO) 1 % (0-10); EOSINOPHILS # (AUTO) 0.3 10^3/uL (0.0-0.3); EOSINOPHILS % (AUTO) 4 % (0-10); HEMATOCRIT 41 % (35-52); HEMOGLOBIN 12.7 g/dL (11.5-16.0); LYMPHOCYTES # (AUTO) 1.7 10^3/uL (1.0-4.0); LYMPHOCYTES % (AUTO) 17 % (12-44); MEAN CORPUSCULAR HEMOGLOBIN 29 pg (25-34); MEAN CORPUSCULAR HGB CONC 31 g/dL (32-36); MEAN CORPUSCULAR VOLUME 92 fL (80-99); MEAN PLATELET VOLUME 9.8 fL (9.0-12.2); MONOCYTES # (AUTO) 0.9 10^3/uL (0.0-1.0); MONOCYTES % (AUTO) 9 % (0-12); NEUTROPHILS # (AUTO) 6.9 10^3/uL (1.8-7.8); NEUTROPHILS % (AUTO) 70 % (42-75); PLATELET COUNT 216 10^3/uL (130-400); WHITE BLOOD COUNT 9.8 10^3/uL (4.3-11.0)
--- NOTE | 2022-08-21 02:04 | ED Hip Pain/Injury ---
General Chief Complaint: Hip/Pelvic Problems Stated Complaint: FALL,RT LEG INJURY Nursing Triage Note: BROUGHT IN BY [facility] S/P FALL WITH RIGHT HIP PAIN. Source: patient, EMS Exam Limitations: no limitations History of Present Illness Date Seen by Provider: Aug 21, 2022 Time Seen by Provider: 01:36 Initial Comments This 87-year-old woman presents to the emergency room via [facility] after having a fall in her home. She has Parkinson's disease and lost her footing and balance causing her to fall on her right side. She has right hip pain but denies any other injury. She denies striking her head or injuring her neck. She received 2 doses of fentanyl 50 mcg by EMS. This apparently caused hypoxia as she had oxygen saturations in the 50s and 60s during assessment. She was still alert and talkative. Oxygen saturation rebounded quickly on nasal cannula at 4 L/min. She has an abrasion on her right elbow. Allergies and Home Medications Allergies Coded Allergies: Sulfa (Sulfonamide Antibiotics) (Verified Allergy, Unknown, hives, 11/16/19) Patient Home Medication List Home Medication List Reviewed: Yes Acetaminophen (Tylenol Extra Strength) 500 Mg Tablet, 500 MG PO Q8H PRN for PAIN-MILD (1-4), (Reported) Entered as Reported by: ADRIANA VILLALOBOS on 03/27/21 1412 Apixaban (Eliquis) 2.5 Mg Tablet, 2.5 MG PO BID, (Reported) Entered as Reported by: ADRIANA VILLALOBOS on 03/27/21 1356 Ascorbic Acid (Vitamin C) 500 Mg Capsule, 500 MG PO DAILY, (Reported) Entered as Reported by: ADRIANA VILLALOBOS on 03/27/21 1409 Calcium Carbonate (Calcium) 500 Mg Tablet, 500 MG PO DAILY, (Reported) Entered as Reported by: ADRINAA VILLALOBOS on 03/27/21 1413 Carbidopa/Levodopa (Carbidopa-Levo 25-100 mg Odt) 1 Each Tab.rapdis, 1.5 EACH PO QID, (Reported) Entered as Reported by: ADRIANA VILLALOBOS on 03/27/21 1351 Ciprofloxacin HCl (Ciprofloxacin HCl) 500 Mg Tablet, 500 MG PO BID, (Reported) Entered as Reported by: ADRIANA VILLALOBOS on 03/27/21 1351 Cyanocobalamin (Vitamin B-12) (B-12) 1,000 Mcg Tablet, 1,000 MCG PO DAILY, (Reported) Entered as Reported by: ADRIANA VILLALOBOS on 03/27/21 1411 Diazepam (Diazepam) 10 Mg Tablet, 10 MG PO HS PRN for ANXIETY, (Reported) Entered as Reported by: ADRIANA VILLALOBOS on 03/27/21 1404 Docusate Sodium (Docusate Sodium) 100 Mg Capsule, 200 MG PO BID, (Reported) Entered as Reported by: ADRIANA VILLALOBOS on 03/27/21 1405 Flecainide Acetate (Flecainide Acetate) 100 Mg Tablet, 100 MG PO BID, (Reported) Entered as Reported by: ADRIANA VILLALOBOS on 03/27/21 1407 Hydrocodone Bit/Acetaminophen (HYDROcodone/APAP 5 MG/325 MG TAB) 1 Tab Tab, 1 TAB PO Q6H Prescribed by: OSMEL PINON on 01/09/22 1107 Hydrocodone/Acetaminophen (Hydrocodone-Acetamin 5-325 mg) 1 Each Tablet, 1 EACH PO Q4H PRN for PAIN-MODERATE (5-7) Prescribed by: PAOLA CHICAS on 03/28/21 1627 Lovastatin (Lovastatin) 10 Mg Tablet, 10 MG PO HS, (Reported) Entered as Reported by: ADRIANA VILLALOBOS on 03/27/21 1358 Mv-Mn/FA/Vit K/Lycop/Lut/Zeaxa (Ocuvite Eye + Multi Tablet) 1 Each Tablet, 1 EACH PO DAILY, (Reported) Entered as Reported by: ADRIANA VILLALOBOS on 03/27/21 1413 Ropinirole HCl (Ropinirole HCl) 0.5 Mg Tablet, 0.5 MG PO TID, (Reported) Entered as Reported by: ADRIANA VILLALOBOS on 03/27/21 1351 Ropinirole HCl (Ropinirole HCl) 1 Mg Tablet, 1 MG PO TID, (Reported) Entered as Reported by: ADRIANA VILLALOBOS on 03/27/21 1400 Tramadol HCl (Tramadol HCl) 50 Mg Tablet, 50 MG PO TID PRN for PAIN-MODERATE (5- 7), (Reported) Entered as Reported by: ADRIANA VILLALOBOS on 03/27/21 1424 Zinc Sulfate (Zinc) 50 Mg Tablet, 50 MG PO DAILY, (Reported) Entered as Reported by: ADRIANA VILLALOBOS on 03/27/21 1411 Review of Systems Constitutional: no symptoms reported EENTM: no symptoms reported Respiratory: see HPI Cardiovascular: no symptoms reported Gastrointestinal: no symptoms reported Genitourinary: no symptoms reported : No Musculoskeletal: see HPI Skin: no symptoms reported Psychiatric/Neurological: See HPI Past [id number] Hx Patient Social History Tobacco Use?: No Substance use?: No Alcohol Use?: No Pt feels they are or have been: No Immunizations Up To Date Tetanus Booster (TDap): Less than 5yrs PED Vaccines UTD: Yes First/Initial COVID19 Vaccinat: 11/04 Second COVID19 Vaccination Chris: 11/04 Third COVID19 Vaccination Date: 11/04 Seasonal Allergies Seasonal Allergies: Yes Past Medical History Surgery/Hospitalization HX: BROKE PELVIS, A-FIB, BELLS PALSY Surgeries: Yes Abdominal, Hysterectomy, Orthopedic Respiratory: Yes (Nocturnal hypoxia) Currently Using CPAP: No Currently Using BIPAP: No Cardiac: Yes Atrial Fibrillation Neurological: Yes (tremor, Dick's palsy) Parkinson's Disease, Stroke : No Reproductive Disorders: No [employer] History: Hysterectomy Sexually Transmitted Disease: No Genitourinary: No Gastrointestinal: No Musculoskeletal: Yes (BILATERAL KNEE REPLACEMENTS; LEFT SHOULDER REPLACEMENTS; ) Degenerate Disk Disease, Arthritis, Chronic Back Pain Endocrine: No HEENT: No Cancer: No Psychosocial: Yes Anxiety Integumentary: No Blood Disorders: No Family Medical History Cardiovascular disease 19 FATHER Hypertension 19 FATHER No Pertinent Family Hx Physical Exam Vital Signs Vital Signs - First Documented 08/21/22 01:40 Temp 36.7 Pulse 60 Resp 18 B/P (MAP) 107/63 (78) Pulse Ox 97 O2 Delivery Nasal Cannula O2 Flow Rate 3.00 Capillary Refill : Less Than 3 Seconds Height, Weight, BMI Height: 5'7.00" Weight: 123lbs. 2.0oz. 55.294191pt; 18.00 BMI Method:Stated General Appearance: No Apparent Distress, WD/WN HEENT: PERRL/EOMI, Other (No apparent injury, asymmetry due to Dick's palsy) Neck: Normal Inspection, JVD Cardiovascular: Regular Rate, Rhythm, No Edema, No Murmur Respiratory: Lungs Clear, Normal Breath Sounds, No Accessory Muscle Use Gastrointestinal: Normal Bowel Sounds, Non Tender, Soft Extremity: Normal Inspection, Non Tender, No Pedal Edema, Other (Note: This exam was performed after 100 mcg of fentanyl. Abrasion on the right elbow) Neurologic/Psychiatric: Alert, No Motor/Sensory Deficits, Motor Weakness, Other (Somnolent) Skin: Normal Color, Warm/Dry Progress/Results/Core Measures Results/Orders Lab Results Laboratory Tests Test 08/21/22 01:50 08/21/22 02:15 Range/Units White Blood Count 9.8 4.3-11.0 10^3/uL Red Blood Count 4.45 3.80-5.11 10^6/uL Hemoglobin 12.7 11.5-16.0 g/dL Hematocrit 41 35-52 % Mean Corpuscular Volume 92 80-99 fL Mean Corpuscular Hemoglobin 29 25-34 pg Mean Corpuscular Hemoglobin Concent 31 L 32-36 g/dL Red Cell Distribution Width 14.7 H 10.0-14.5 % Platelet Count 216 130-400 10^3/uL Mean Platelet Volume 9.8 9.0-12.2 fL Immature Granulocyte % (Auto) 0 % Neutrophils (%) (Auto) 70 42-75 % Lymphocytes (%) (Auto) 17 12-44 % Monocytes (%) (Auto) 9 0-12 % Eosinophils (%) (Auto) 4 0-10 % Basophils (%) (Auto) 1 0-10 % Neutrophils # (Auto) 6.9 1.8-7.8 10^3/uL Lymphocytes # (Auto) 1.7 1.0-4.0 10^3/uL Monocytes # (Auto) 0.9 0.0-1.0 10^3/uL Eosinophils # (Auto) 0.3 0.0-0.3 10^3/uL Basophils # (Auto) 0.1 0.0-0.1 10^3/uL Immature Granulocyte # (Auto) 0.0 0.0-0.1 10^3/uL Prothrombin Time 14.5 12.2-14.7 SEC INR Comment 1.1 0.8-1.4 Activated Partial Thromboplast Time 29 24-35 SEC Sodium Level 145 135-145 MMOL/L Potassium Level 3.8 3.6-5.0 MMOL/L Chloride Level 109 H 98-107 MMOL/L Carbon Dioxide Level 26 21-32 MMOL/L Anion Gap 10 5-14 MMOL/L Blood Urea Nitrogen 26 H 7-18 MG/DL Creatinine 0.89 0.60-1.30 MG/DL Estimat Glomerular Filtration Rate 63 BUN/Creatinine Ratio 29 Glucose Level 103 70-105 MG/DL Calcium Level 8.6 8.5-10.1 MG/DL Corrected Calcium 8.7 8.5-10.1 MG/DL Magnesium Level 2.1 1.6-2.4 MG/DL Total Bilirubin 0.3 0.1-1.0 MG/DL Aspartate Amino Transf (AST/SGOT) 21 5-34 U/L Alanine Aminotransferase (ALT/SGPT) 11 0-55 U/L Alkaline Phosphatase 49 40-136 U/L Total Protein 6.9 6.4-8.2 GM/DL Albumin 3.9 3.2-4.5 GM/DL Urine Color YELLOW Urine Clarity CLEAR Urine pH 6.0 5-9 Urine Specific [place] >=1.030 1.016-1.022 Urine Protein 1+ H NEGATIVE Urine Glucose (UA) NEGATIVE NEGATIVE Urine Ketones TRACE H NEGATIVE Urine Nitrite NEGATIVE NEGATIVE Urine Bilirubin NEGATIVE NEGATIVE Urine Urobilinogen 0.2 < = 1.0 MG/DL Urine Leukocyte Esterase NEGATIVE NEGATIVE Urine RBC (Auto) TRACE-I H NEGATIVE Urine RBC 5-10 H /HPF Urine WBC RARE /HPF Urine Squamous Epithelial Cells RARE /HPF Urine Crystals NONE /LPF Urine Bacteria NEGATIVE /HPF Urine Casts PRESENT /LPF Urine Hyaline Casts 0-2 H /LPF Urine Mucus NEGATIVE /LPF Urine Culture Indicated NO My Orders Orders - KING CHOUDHURY MD Cbc With Automated Diff (08/21/22 01:47) Comprehensive Metabolic Panel (08/21/22 01:47) Magnesium (08/21/22 01:47) Ua Culture If Indicated (08/21/22 01:47) Chest 1 View, Ap/Pa Only (08/21/22 01:47) Pelvis With Right Hip 2-3views (08/21/22 01:47) Catheter(Urinary) Insert & Ass 03,15 (08/21/22 02:13) Protime With Inr (08/21/22 02:13) Partial Thromboplastin Time (08/21/22 02:13) Vital Signs/I&O 08/21/22 01:40 Temp 36.7 Pulse 60 Resp 18 B/P (MAP) 107/63 (78) Pulse Ox 97 O2 Delivery Nasal Cannula O2 Flow Rate 3.00 Blood Pressure Mean: 78 Progress Progress Note : Progress Note Patient was found to have a right hip fracture. This was discussed with Dr. Ontiveros who will be consulted for surgical repair. Admission was excepted by Dr. Tapia. It should be noted patient is on Eliquis and took her last dose last night. Labs including CBC, CMP, magnesium, and urinalysis were all reviewed by me in their entirety. There were no major concerns. Diagnostic Imaging Diagonstic Imaging: Xray Plain Films/CT/US/NM/MRI: pelvis, femur Comments X-rays reviewed by me. Report not available at the time of encounter. There was a right proximal femur fracture just distal to the greater trochanter. No pelvic fracture was identified. Diagonstic Imaging: Xray Plain Films/CT/US/NM/MRI: chest Comments Chest x-ray viewed by me. Report not yet available. No definite acute abnormality appreciated. Departure Communication (Admissions) Time/Spoke to Admitting Phy: 02:20 Dr. Tapia Time/Spoke to Consulting Phy: 02:15 Dr. Ontiveros Impression Primary Impression: Closed right hip fracture Qualified Codes: S72.001A - Fracture of unspecified part of neck of right femur, initial encounter for closed fracture Additional Impressions: Fall on same level Qualified Codes: W18.30XA - Fall on same level, unspecified, initial encounter Hypoxia Anticoagulated Disposition: ADMITTED INPATIENT Condition: Improved Admissions Decision to Admit Reason: Admit from ER (Trauma) Decision to Admit/Date: Aug 21, 2022 Time/Decision to Admit Time: 02:15 Departure-Patient Inst. Referrals: FLORENCIA TAPIA DO (PCP/Family) Primary Care Physician KING CHOUDHURY MD Aug 21, 2022 02:04
[2022-08-21 02:11] LABS: ALBUMIN 3.9 GM/DL (3.2-4.5); POTASSIUM 3.8 MMOL/L (3.6-5.0)
[2022-08-21 02:13] LABS: CALCIUM 8.6 MG/DL (8.5-10.1)
[2022-08-21 02:14] LABS: TOTAL PROTEIN 6.9 GM/DL (6.4-8.2)
[2022-08-21 02:16] LABS: BILIRUBIN,TOTAL 0.3 MG/DL (0.1-1.0)
[2022-08-21 02:18] LABS: CREATININE SERUM 0.89 MG/DL (0.60-1.30)
[2022-08-21 02:20] LABS: MAGNESIUM 2.1 MG/DL (1.6-2.4)
[2022-08-21 02:22] LABS: BILIRUBIN,URINE NEGATIVE (NEGATIVE); CLARITY,URINE CLEAR; COLOR,URINE YELLOW; GLUCOSE, URINE (UA) NEGATIVE (NEGATIVE); KETONES,URINE TRACE (NEGATIVE); LEUKOCYTE ESTERASE ,URINE NEGATIVE (NEGATIVE); NITRITE,URINE NEGATIVE (NEGATIVE); PROTEIN,URINE 1+ (NEGATIVE)
[2022-08-21 02:26] LABS: INR 1.1 (0.8-1.4); PROTHROMBIN TIME PATIENT 14.5 SEC (12.2-14.7)
[2022-08-21 02:40] LABS: BACTERIA,URINE NEGATIVE /HPF; HYALINE CASTS, URINE 0-2 /LPF; SQUAMOUS EPITHELIAL CELL,UR RARE /HPF; WBC,URINE RARE /HPF
[2022-08-21] MEDS ORDERED: ONDANSETRON 4 MG/2 ML (SDV) Z0FRAN IV PRN ×2 (03:30→06:15)
[2022-08-21] MEDS: LACTATED RINGERS 1,000 ML IV SCH ×3 (03:35→22:43)
[2022-08-21] MEDS: fentaNYL INJ 100 MCG/2 ML AMP IV PRN ×7 (03:36→20:00)
[2022-08-21] MEDS ORDERED: diphenhydrAMINE 50 MG/ML INJ (BENADRYL) IVP PRN (06:15)
[2022-08-21] MEDS ORDERED: LACTULOSE SYRUP 10GM/15ML (ENULOSE) 30ML UDC PO PRN (06:15)
[2022-08-21] MEDS ORDERED: polyethylene glycoL POWDER 17 GM (MIRALAX) PACK PO PRN (06:15)
[2022-08-21] MEDS ORDERED: ANTACID SUSP 30 ML UDC (MYLANTA) PO PRN (06:15)
[2022-08-21] MEDS ORDERED: CALCIUM CARBONATE 500 MG (TUMS) TAB.CHEW PO PRN (06:15)
[2022-08-21] MEDS ORDERED: BISACODYL 10 MG SUPP (DULCOLAX) PR PRN (06:15)
[2022-08-21] MEDS ORDERED: MILK OF MAGNESIA 400 MG/5 ML 30 ML UDC PO PRN (06:15)
[2022-08-21] MEDS ORDERED: ACETAMINOPHEN 325 MG TABLET PO PRN (06:15)
[2022-08-21] MEDS ORDERED: diphenhydrAMINE 25 MG TAB (BENADRYL) PO PRN (06:15)
[2022-08-21] MEDS ORDERED: ONDANSETRON 4 MG (ZOFRAN) ORAL DISSOLVE TAB PO PRN (06:15)
[2022-08-21] MEDS ORDERED: MELATONIN 3 MG TABLET PO PRN (06:15)
[2022-08-21] MEDS: SINEMET 25/100 (CARBIDOPA/LEVODOPA) TAB PO SCH ×5 (06:17→19:59)
--- NOTE | 2022-08-21 07:02 | Diagnostic Imaging Report ---
INDICATION: Pelvic and hip pain post fall. TECHNIQUE: Single view chest 2:07 AM. CORRELATION STUDY: 01/09/2022 FINDINGS: Heart size and mediastinum are more prominent. Vasculature is slightly increased. Loop recorder device remains present. Mildly prominent interstitial markings. No infiltrate. Prior kyphoplasty changes. Severely advanced degenerative and likely prior traumatic change of the right shoulder. Postop changes left humeral head. IMPRESSION: 1. Heart size and mediastinal vasculature overall appears slightly more prominent from prior suggestive component of mild edema. Dictated by: Dictated on workstation # [id number]
--- NOTE | 2022-08-21 07:03 | Diagnostic Imaging Report ---
INDICATION: Fall with pelvic and hip pain TECHNIQUE: AP pelvis along with 2 views right hip, 2:09 AM CORRELATION STUDY: None FINDINGS: Comminuted, impacted right proximal femur fracture. Main fracture line just below the intertrochanteric aspect but does extend into the intertrochanteric region. Alignment is near anatomic. Femoral head acetabular relationship are maintained. Findings suggest a previous extensive bilateral superior and inferior pubic rami fracture deformities. Moderately advanced degenerative change of the left hip. IMPRESSION: Comminuted, slightly impacted acute right proximal femur fracture. Dictated by: Dictated on workstation # [id number]
[2022-08-21] MEDS ORDERED: TETANUS,DIPTH,PERTUSS P/F (BOOSTRIX) 0.5 ML VIAL IM ONE (07:15)
[2022-08-21] MEDS: FLECAINIDE 100 MG (TAMBOCOR) TAB PO SCH ×2 (09:35→19:59)
[2022-08-21] MEDS: SENNOSIDES 8.6 MG (SENOKOT) TAB PO SCH ×2 (09:37→20:07)
[2022-08-21] MEDS: DOCUSATE SODIUM 100 MG (COLACE) CAP PO SCH ×2 (09:37→20:07)
[2022-08-21] MEDS ORDERED: amLODIPine 5 MG (NORVASC) TAB PO NR (10:00)
[2022-08-21] MEDS ORDERED: LACTATED RINGERS 1,000 ML IV PRN (10:00)
--- NOTE | 2022-08-21 11:53 | History & Physical ---
MARILEE STACY Arabella 08/21/22 1153: History of Present Illness History of Present Illness Reason for visit/HPI This is an 87 y/o female who presented to the ED after a non-syncopal fall after tripping, hitting a wall, and falling down. She was transported by EMS to the ED and given two doses of 50mcg Fentanyl while en route for pain control for severe right hip pain. Pain was improved from this. Upon arrival to the ED her O2 saturations were found to be in the 50s-60s% but without any distress/symptoms of being hypoxic. She was placed on 4 L N.C and reportedly her O2 levels recovered. Further ED workup with CXR and hip XR revealed a right hip fracture and negative CXR. She has a history significant for paroxysmal atrial fibrillation, CHF, and Parkinson's disease. She currently takes Flecainide and apixaban 2.5 mg BID for the atrial fibrillation. Her last dose of Apixaban was the evening of her fall (08/20). She was admitted to the med-surg unit under medicine and ortho was consulted for repair. Ortho is electing to wait until 08/22 to repair the right hip operatively due to recent anticoagulation use. This morning, Ms. Mccartney is complaining of pain on the 8-9/10 scale which does improve with medications. She is informed of her PRNs ordered. She is hungry and about to eat when being seen at bedside. She does not feel SOB, has no recent CP/palpitations, syncope, or pre-syncope. She denies N/V, lightheadedness, fevers, and chills. Besides pain she has no complaints. Date of Admission Aug 21, 2022 at 02:39 Date Seen by a Provider: Aug 21, 2022 Time Seen by a Provider: 10:00 I consulted on this patient on 08/21/22 11:46 Attending Physician Maryjane Tapia DO Admitting Physician Admitting Physician: Maryjane Tapia DO Attending Physician: Maryjane Tapia DO Consult Allergies and Home Medications Allergies Coded Allergies: Sulfa (Sulfonamide Antibiotics) (Verified Allergy, Unknown, hives, 11/16/19) Patient Home Medication List Home Medication List Reviewed: Yes Amlodipine Besylate (Amlodipine Besylate) 5 Mg Tablet, 5 MG PO DAILY, (Reported) Entered as Reported by: EDMAR FELIX on 08/21/221536 Last Action: Reviewed Apixaban (Eliquis) 2.5 Mg Tablet, 2.5 MG PO BID, (Reported) Entered as Reported by: ADRIANA VILLALOBOS on 03/27/21 135 Last Action: Reviewed Ascorbic Acid (Vitamin C) 500 Mg Capsule, 500 MG PO DAILY, (Reported) Entered as Reported by: ADRIANA VILLALOBOS on 03/27/21 140 Last Action: Reviewed Carbidopa/Levodopa (Carbidopa-Levodopa 25-100 Tab) 25 Mg-100 Mg Tablet, 1 EA PO 0700,1000,1300,1600,1900, (Reported) Entered as Reported by: EDMAR FELIX on 08/21/221536 Last Action: Reviewed Diazepam (Diazepam) 10 Mg Tablet, 10 MG PO HS, (Reported) Entered as Reported by: ADRIANA VILLALOBOS on 03/27/21 140 Last Action: Reviewed Docusate Sodium (Docusate Sodium) 100 Mg Capsule, 100 MG PO BID, (Reported) Entered as Reported by: ADRIANA VILLALOBOS on 03/27/21 140 Last Action: Reviewed Flecainide Acetate (Flecainide Acetate) 100 Mg Tablet, 50 MG PO BID, (Reported) Entered as Reported by: ADRIANA VILLALOBOS on 03/27/211406 Last Action: Reviewed Lovastatin (Lovastatin) 10 Mg Tablet, 10 MG PO HS, (Reported) Entered as Reported by: ADRIANA VILLALOBOS on 03/27/21 135 Last Action: Reviewed Melatonin (Melatonin) 10 Mg Tablet, 10 MG PO HS, (Reported) Entered as Reported by: EDMAR FELIX on 08/21/221536 Last Action: Reviewed Multivitamin (Multivitamin) 1 Each Tablet, 1 EACH PO DAILY, (Reported) Entered as Reported by: EDMAR FELIX on 08/21/221536 Last Action: Reviewed Mv-Mn/FA/Vit K/Lycop/Lut/Zeaxa (Ocuvite Eye + Multi Tablet) 1 Each Tablet, 1 EACH PO DAILY, (Reported) Entered as Reported by: ADRIANA VILLALOBOS on 03/27/21 141 Last Action: Reviewed Ropinirole HCl (Ropinirole HCl) 2 Mg Tablet, 2 MG PO TID, (Reported) Entered as Reported by: EDMAR FELIX on 08/21/221536 Last Action: Reviewed Sertraline HCl (Sertraline HCl) 25 Mg Tablet, 25 MG PO DAILY, (Reported) Entered as Reported by: EDMAR FELIX on 08/21/221536 Last Action: Reviewed Tramadol HCl (Tramadol HCl) 50 Mg Tablet, 50 MG PO BID PRN for PAIN-MODERATE (5- 7), (Reported) Entered as Reported by: ADRIANA VILLALOBOS on 03/27/21 142 Last Action: Reviewed Vitamin B Complex/Folic Acid (B-Complex Tablet) 0.4 Mg Tablet, 1 EA PO DAILY, (Reported) Entered as Reported by: EDMAR FELIX on 08/21/221536 Last Action: Reviewed Discontinued Medications Acetaminophen (Tylenol Extra Strength) 500 Mg Tablet, 500 MG PO Q8H PRN for PAIN-MILD (1-4), (Reported) Discontinued Reason: No Longer Taking Entered as Reported by: ADRIANA VILLALOBOS on 03/27/21 1412 Last Action: Discontinued Calcium Carbonate (Calcium) 500 Mg Tablet, 500 MG PO DAILY, (Reported) Discontinued Reason: No Longer Taking Entered as Reported by: ADRIANA VILLALOBOS on 03/27/21 141 Last Action: Discontinued Carbidopa/Levodopa (Carbidopa-Levo 25-100 mg Odt) 1 Each Tab.rapdis, 1.5 EACH PO QID, (Reported) Discontinued Reason: No Longer Taking Entered as Reported by: ADRIANA VILLALOBOS on 03/27/21 1351 Last Action: Discontinued Ciprofloxacin HCl (Ciprofloxacin HCl) 500 Mg Tablet, 500 MG PO BID, (Reported) Discontinued Reason: No Longer Taking Entered as Reported by: ADRIANA VILLALOBOS on 03/27/21 1351 Last Action: Discontinued Cyanocobalamin (Vitamin B-12) (B-12) 1,000 Mcg Tablet, 1,000 MCG PO DAILY, (Reported) Discontinued Reason: No Longer Taking Entered as Reported by: ADRIANA VILLALOBOS on 03/27/21 1411 Last Action: Discontinued Hydrocodone Bit/Acetaminophen (HYDROcodone/APAP 5 MG/325 MG TAB) 1 Tab Tab, 1 TAB PO Q6H Discontinued Reason: No Longer Taking Prescribed by: OSMEL PINON on 01/09/22 1107 Last Action: Discontinued Hydrocodone/Acetaminophen (Hydrocodone-Acetamin 5-325 mg) 1 Each Tablet, 1 EACH PO Q4H PRN for PAIN-MODERATE (5-7) Discontinued Reason: No Longer Taking Prescribed by: PAOLA CHICAS on 03/28/21 1627 Last Action: Discontinued Ropinirole HCl (Ropinirole HCl) 0.5 Mg Tablet, 0.5 MG PO TID, (Reported) Discontinued Reason: No Longer Taking Entered as Reported by: ADRIANA VILLALOBOS on 03/27/21 1351 Last Action: Discontinued Ropinirole HCl (Ropinirole HCl) 1 Mg Tablet, 1 MG PO TID, (Reported) Discontinued Reason: No Longer Taking Entered as Reported by: ADRIANA VILLALOBOS on 03/27/21 1400 Last Action: Discontinued Zinc Sulfate (Zinc) 50 Mg Tablet, 50 MG PO DAILY, (Reported) Discontinued Reason: No Longer Taking Entered as Reported by: ADRIANA VILLALOBOS on 03/27/21 1411 Last Action: Discontinued Past Fntmock-Esbyvh-Kdguap Hx Patient Social History Tobacco Use?: No Smoking Status: Never a Smoker Use of E-Cig and/or Vaping dev: No Substance use?: No Alcohol Use?: No Pt feels they are or have been: No Immunizations Up To Date Date of Influenza Vaccine: Jun 10, 2019 First/Initial COVID19 Vaccinat: 11/04 Second COVID19 Vaccination Chris: 11/04 Tetanus Booster (TDap): Unknown PED Vaccines UTD: Yes Date of Pneumonia Vaccine: Feb 20, 2016 Seasonal Allergies Seasonal Allergies: Yes Current Status status: No status: No Advance Directives: Yes Communicates: Verbally Primary Language: Latvian Preferred Spoken Language: Latvian Is interpretation needed?: No Past Medical History Surgeries: Abdominal, Hysterectomy, Orthopedic Currently Using CPAP: No Currently Using BIPAP: No Atrial Fibrillation Parkinson's Disease, Stroke 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 Sexually Transmitted Disease: No Degenerate Disk Disease, Arthritis, Chronic Back Pain Anxiety Blood Disorders: No Family Medical History Cardiovascular disease 19 FATHER Hypertension 19 FATHER No Pertinent Family Hx Review of Systems Constitutional: No chills, No dizziness, No fever, No malaise EENTM: no symptoms reported Respiratory: no symptoms reported, see HPI Cardiovascular: No chest pain, No edema, No palpitations, No syncope Gastrointestinal: no symptoms reported; No loss of appetite, No nausea, No vomiting Genitourinary: no symptoms reported : No Musculoskeletal: back pain Skin: no symptoms reported Psychiatric/Neurological: Anxiety Physical Exam Vital Signs Vital Signs - First Documented 08/21/22 08/21/22 01:40 06:29 Temp 36.7 Pulse 60 Resp 18 B/P (MAP) 107/63 (78) Pulse Ox 97 O2 Delivery Nasal Cannula O2 Flow Rate 3.00 FiO2 36 Capillary Refill : Less Than 3 Seconds Height, Weight, BMI Height: 5'7.00" Weight: 123lbs. 2.0oz. 55.821776pf; 20.22 BMI Method:Stated General Appearance: No Apparent Distress, Anxious HEENT: PERRL/EOMI Neck: Full Range of Motion, Non Tender, Supple Respiratory: Chest Non Tender, Lungs Clear, Normal Breath Sounds Cardiovascular: Regular Rate, Rhythm, No Edema, Normal Peripheral Pulses Gastrointestinal: Non Tender, Soft Back: Normal Inspection Extremity: No Calf Tenderness, No Pedal Edema, Other (Right hip is equisitely tender to palpation/any movement. Patient guards against movement of lower limbs.) Neurologic/Psychiatric: Alert, Oriented x3 Skin: Normal Color, Warm/Dry Laboratory Tests 08/21/22 01:50 Assessment/Plan Assessment and Plan Vital Signs Date Time Temp Pulse Resp B/P (MAP) Pulse Ox O2 Delivery O2 Flow Rate FiO2 08/21/22 08:51 36.0 68 18 177/82 (113) 93 Nasal Cannula 4.00 08/21/22 08:00 Room Air 08/21/22 06:55 96 Nasal Cannula 3.00 08/21/22 06:29 36.0 69 97 36 08/21/22 04:28 97 Nasal Cannula 4.00 08/21/22 03:15 Nasal Cannula 4.00 08/21/22 03:11 35.9 69 16 169/79 (109) 99 Nasal Cannula 4.00 08/21/22 02:48 36.5 59 14 159/97 98 Nasal Cannula 2.00 08/21/22 01:40 36.7 60 18 107/63 (78) 97 Nasal Cannula 3.00 I & O 08/21/22 07:00 Intake Total 200 ml Output Total 225 ml Balance -25 ml Radiology Results: NAME: MJ MCCARTNEY [facility] REC#: [id number] PT STATUS: ADM IN : 1935 PHYSICIAN: KING CHOUDHURY MD ADMIT DATE: 08/21/22 Signed Date of Exam:08/21/22 PELVIS WITH RIGHT HIP 2-3VIEWS INDICATION: Fall with pelvic and hip pain TECHNIQUE: AP pelvis along with 2 views right hip, 2:09 AM CORRELATION STUDY: None FINDINGS: Comminuted, impacted right proximal femur fracture. Main fracture line just below the intertrochanteric aspect but does extend into the intertrochanteric region. Alignment is near anatomic. Femoral head acetabular relationship are maintained. Findings suggest a previous extensive bilateral superior and inferior pubic rami fracture deformities. Moderately advanced degenerative change of the left hip. IMPRESSION: Comminuted, slightly impacted acute right proximal femur fracture. Dictated by: Dictated on workstation # [id number] Dict: 08/21/22699 Trans: 08/21/22931 [place] [id number] Interpreted by: SP PINZON DO Electronically signed by: SP PINZON DO 08/21/22931 NAME: MJ MCCARTNEY [facility] REC#: [id number] PT STATUS: ADM IN : 1935 PHYSICIAN: KING CHOUDHURY MD ADMIT DATE: 08/21/22 Signed Date of Exam:08/21/22 CHEST 1 VIEW, AP/PA ONLY INDICATION: Pelvic and hip pain post fall. TECHNIQUE: Single view chest 2:07 AM. CORRELATION STUDY: 01/09/2022 FINDINGS: Heart size and mediastinum are more prominent. Vasculature is slightly increased. Loop recorder device remains present. Mildly prominent interstitial markings. No infiltrate. Prior kyphoplasty changes. Severely advanced degenerative and likely prior traumatic change of the right shoulder. Postop changes left humeral head. IMPRESSION: 1. Heart size and mediastinal vasculature overall appears slightly more prominent from prior suggestive component of mild edema. Dictated by: Dictated on workstation # [id number] Dict: 08/21/22699 Trans: 08/21/22931 [place] [id number] Interpreted by: SP PINZON DO Electronically signed by: SP PINZON DO 08/21/22931 Assessment: This is an 87 y/o female who presented to the ED after a non-syncopal fall and severe right hip pain who was also found to be hypoxic on arrival Right proximal femur fracture Hypoxia PAF CHF HTN CAD Parkinson's Disease Plan Right proximal femur fracture -Ortho managing -Plan for OR and repair tomorrow 08/22 -Pain control: PO oxy, APAP PRN, IV fentanyl PRN for breakthrough -Hgb 12.7, Coags WNL on admission -Normotensive, VSS. Hypoxia -Currently on 3 L N.C, satting mid 90s. -Wears N.C at home during nighttime with O2 concentrator, unsure of baseline flow rate. -CXR showed mild edema, normal lung exam -Likely some aspect of chronicity exacerbated by narcotic administration as patient O2 sats were normal prior to admin per EMS PAF -On Apixiban 2.5mg BID - hold, last dose was PM 08/20 -On flecainide - continue -NSR on exam/monitor today -Will consult cardiology to evaluate in anticipation for surgery potentially exacerbating a-fib. CHF CAD HTN - new -Will get echo to evaluate -Will start amlodipine for elevated BPs inpatient -Consult cardiology - appreciate recs. Parkinson's Disease -Carbidopa/levodopa 25-100mg 1.5 tabs QID at home - continue -Ropinriole 1.5mg daily - continue FEN/GI -Maintenance fluids - LR 75 ml/hr -Regular diet, NPO at midnight -Replace electrolytes PRN -Bowel regimen Clinical Quality Measures DVT/VTE Risk/Contraindication: Contraindications-Pharm: Other *list below* Other: OR MARYJANE TAPIA DO 08/22/22 0441: Allergies and Home Medications Allergies Coded Allergies: Sulfa (Sulfonamide Antibiotics) (Verified Allergy, Unknown, hives, 11/16/19) Patient Home Medication List Amlodipine Besylate (Amlodipine Besylate) 5 Mg Tablet, 5 MG PO DAILY, (Reported) Entered as Reported by: EDMAR FELIX on 08/21/22 1537 Last Action: Reviewed Apixaban (Eliquis) 2.5 Mg Tablet, 2.5 MG PO BID, (Reported) Entered as Reported by: ADRIANA VILLALOBOS on 03/27/21 1356 Last Action: Reviewed Ascorbic Acid (Vitamin C) 500 Mg Capsule, 500 MG PO DAILY, (Reported) Entered as Reported by: ADRIANA VILLALOBOS on 03/27/21 1409 Last Action: Reviewed Carbidopa/Levodopa (Carbidopa-Levodopa 25-100 Tab) 25 Mg-100 Mg Tablet, 1 EA PO 0700,1000,1300,1600,1900, (Reported) Entered as Reported by: EDMAR FELIX on 08/21/221536 Last Action: Reviewed Diazepam (Diazepam) 10 Mg Tablet, 10 MG PO HS, (Reported) Entered as Reported by: ADRIANA VILLALOBOS on 03/27/211403 Last Action: Reviewed Docusate Sodium (Docusate Sodium) 100 Mg Capsule, 100 MG PO BID, (Reported) Entered as Reported by: ADRIANA VILLALOBOS on 03/27/21 140 Last Action: Reviewed Flecainide Acetate (Flecainide Acetate) 100 Mg Tablet, 50 MG PO BID, (Reported) Entered as Reported by: ADRIANA VILLALOBOS on 03/27/211406 Last Action: Reviewed Lovastatin (Lovastatin) 10 Mg Tablet, 10 MG PO HS, (Reported) Entered as Reported by: ADRIANA VILLALOBOS on 03/27/21 1358 Last Action: Reviewed Melatonin (Melatonin) 10 Mg Tablet, 10 MG PO HS, (Reported) Entered as Reported by: EDMAR FELIX on 08/21/221536 Last Action: Reviewed Multivitamin (Multivitamin) 1 Each Tablet, 1 EACH PO DAILY, (Reported) Entered as Reported by: EDMAR FELIX on 08/21/221536 Last Action: Reviewed Mv-Mn/FA/Vit K/Lycop/Lut/Zeaxa (Ocuvite Eye + Multi Tablet) 1 Each Tablet, 1 EACH PO DAILY, (Reported) Entered as Reported by: ADRIANA VILLALOBOS on 03/27/21 1413 Last Action: Reviewed Ropinirole HCl (Ropinirole HCl) 2 Mg Tablet, 2 MG PO TID, (Reported) Entered as Reported by: EDMAR FELIX on 08/21/221536 Last Action: Reviewed Sertraline HCl (Sertraline HCl) 25 Mg Tablet, 25 MG PO DAILY, (Reported) Entered as Reported by: EDMAR FELIX on 08/21/221536 Last Action: Reviewed Tramadol HCl (Tramadol HCl) 50 Mg Tablet, 50 MG PO BID PRN for PAIN-MODERATE (5- 7), (Reported) Entered as Reported by: ADRIANA VILLALOBOS on 03/27/21 142 Last Action: Reviewed Vitamin B Complex/Folic Acid (B-Complex Tablet) 0.4 Mg Tablet, 1 EA PO DAILY, (Reported) Entered as Reported by: EDMAR FELIX on 08/21/22 1537 Last Action: Reviewed Discontinued Medications Acetaminophen (Tylenol Extra Strength) 500 Mg Tablet, 500 MG PO Q8H PRN for PAIN-MILD (1-4), (Reported) Discontinued Reason: No Longer Taking Entered as Reported by: ADRIANA VILLALOBOS on 03/27/21 1412 Last Action: Discontinued Calcium Carbonate (Calcium) 500 Mg Tablet, 500 MG PO DAILY, (Reported) Discontinued Reason: No Longer Taking Entered as Reported by: ADRIANA VILLALOBOS on 03/27/21 141 Last Action: Discontinued Carbidopa/Levodopa (Carbidopa-Levo 25-100 mg Odt) 1 Each Tab.rapdis, 1.5 EACH PO QID, (Reported) Discontinued Reason: No Longer Taking Entered as Reported by: ADRIANA VILLALOBOS on 03/27/21 1351 Last Action: Discontinued Ciprofloxacin HCl (Ciprofloxacin HCl) 500 Mg Tablet, 500 MG PO BID, (Reported) Discontinued Reason: No Longer Taking Entered as Reported by: ADRIANA VILLALOBOS on 03/27/21 135 Last Action: Discontinued Cyanocobalamin (Vitamin B-12) (B-12) 1,000 Mcg Tablet, 1,000 MCG PO DAILY, (Reported) Discontinued Reason: No Longer Taking Entered as Reported by: ADRIANA VILLALOBOS on 03/27/21 141 Last Action: Discontinued Hydrocodone Bit/Acetaminophen (HYDROcodone/APAP 5 MG/325 MG TAB) 1 Tab Tab, 1 TAB PO Q6H Discontinued Reason: No Longer Taking Prescribed by: OSMEL PINON on 01/09/22 1107 Last Action: Discontinued Hydrocodone/Acetaminophen (Hydrocodone-Acetamin 5-325 mg) 1 Each Tablet, 1 EACH PO Q4H PRN for PAIN-MODERATE (5-7) Discontinued Reason: No Longer Taking Prescribed by: PAOLA CHICAS on 03/28/21 1627 Last Action: Discontinued Ropinirole HCl (Ropinirole HCl) 0.5 Mg Tablet, 0.5 MG PO TID, (Reported) Discontinued Reason: No Longer Taking Entered as Reported by: ADRIANA VILLALOBOS on 03/27/21 135 Last Action: Discontinued Ropinirole HCl (Ropinirole HCl) 1 Mg Tablet, 1 MG PO TID, (Reported) Discontinued Reason: No Longer Taking Entered as Reported by: ADRIANA VILLALOBOS on 03/27/21 1400 Last Action: Discontinued Zinc Sulfate (Zinc) 50 Mg Tablet, 50 MG PO DAILY, (Reported) Discontinued Reason: No Longer Taking Entered as Reported by: ADRIANA VILLALOBOS on 03/27/21 1411 Last Action: Discontinued Past Cyufftq-Kijzzb-Qphyrv Hx Patient Social History Marrital Status: Employed/Student: retired Smoking Status: Former Smoker Past Medical History Atrial Fibrillation, High Cholesterol, Hypertension Parkinson's Disease Osteoporosis Anxiety, Depression Family Medical History Cardiovascular disease 19 FATHER Hypertension 19 FATHER Review of Systems Constitutional: see HPI Physical Exam General Appearance: Anxious, Chronically ill, Thin Respiratory: Lungs Clear, Normal Breath Sounds Assessment/Plan Assessment and Plan Problems: (1) fall (2) Hypoxia Status: Acute (3) Fall on same level Status: Acute Qualifiers: Qualified Codes: W18.30XA - Fall on same level, unspecified, initial encounter (4) Anticoagulated Status: Acute (5) Closed right hip fracture Status: Acute Qualifiers: Qualified Codes: S72.001A - Fracture of unspecified part of neck of right femur, initial encounter for closed fracture (6) Hypertension (7) Parkinson's disease (8) HLD (hyperlipidemia) (9) Paroxysmal atrial fibrillation Admission Diagnosis Admission Status: Inpatient Order (span 2 midnights) Reason for Inpatient Admission: hip fx Supervisory-Addendum Brief Verification & Attestation Participated in pt care: history, MDM, physical Personally performed: exam, history, MDM, supervision of care Care discussed with: Medical Student Procedures: n/a Results interpretation: Verified all documentation Verification and Attestation of Medical Student E/M Service A medical student performed and documented this service in my presence. I reviewed and verified all information documented by the medical student and made modifications to such information, when appropriate. I personally performed the physical exam and medical decision making. Maryjane Tapia Aug 22, 2022,04:39 MARILEE STACY Aug 21, 2022 11:53 MARYJANE TAPIA DO Aug 22, 2022 04:41
--- NOTE | 2022-08-21 12:55 | Consultation - Ortho ---
Consult - Ortho Subjective Date of Exam 08/21/22 Chief Complaint Right Hip Pain HPI/Events since last exam fall, seen in ER and diagnosed with hip fracture, I was consulted for management of the fracture Medical, Surgical History see admit Social History see admit Family History see admit Review of Systems - Allergies: Coded Allergies: Sulfa (Sulfonamide Antibiotics) (Verified Allergy, Unknown, hives, 11/16/19) Home Meds Active Scripts Hydrocodone Bit/Acetaminophen (HYDROcodone/APAP 5 MG/325 MG TAB) 1 Tab Tab, 1 TAB PO Q6H for Pain, #10 TAB 0 Refills Prov:OSMEL PINON MD 01/09/22 Hydrocodone/Acetaminophen (Hydrocodone-Acetamin 5-325 mg) 1 Each Tablet, 1 EACH PO Q4H PRN for PAIN-MODERATE (5-7), #20 TAB Prov:PAOLA CHICAS DO 03/28/21 Reported Medications Tramadol HCl (Tramadol HCl) 50 Mg Tablet, 50 MG PO TID PRN for PAIN-MODERATE (5- 7), TAB 03/27/21 Calcium Carbonate (Calcium) 500 Mg Tablet, 500 MG PO DAILY, TAB 03/27/21 Mv-Mn/FA/Vit K/Lycop/Lut/Zeaxa (Ocuvite Eye + Multi Tablet) 1 Each Tablet, 1 EACH PO DAILY, TAB 03/27/21 Acetaminophen (Tylenol Extra Strength) 500 Mg Tablet, 500 MG PO Q8H PRN for PAIN-MILD (1-4), TAB 03/27/21 Cyanocobalamin (Vitamin B-12) (B-12) 1,000 Mcg Tablet, 1000 MCG PO DAILY, TAB 03/27/21 Zinc Sulfate (Zinc) 50 Mg Tablet, 50 MG PO DAILY, TAB 03/27/21 Ascorbic Acid (Vitamin C) 500 Mg Capsule, 500 MG PO DAILY, CAP 03/27/21 Flecainide Acetate (Flecainide Acetate) 100 Mg Tablet, 100 MG PO BID, TAB 03/27/21 Docusate Sodium (Docusate Sodium) 100 Mg Capsule, 200 MG PO BID, CAP 03/27/21 Diazepam (Diazepam) 10 Mg Tablet, 10 MG PO HS PRN for ANXIETY, TAB 03/27/21 Ropinirole HCl (Ropinirole HCl) 1 Mg Tablet, 1 MG PO TID, TAB TAKES 1MG + 0.5MG TOGETHER TO EQUAL 1.5MG 03/27/21 Lovastatin (Lovastatin) 10 Mg Tablet, 10 MG PO HS, TAB 03/27/21 Apixaban (Eliquis) 2.5 Mg Tablet, 2.5 MG PO BID, TAB 03/27/21 Carbidopa/Levodopa (Carbidopa-Levo 25-100 mg Odt) 1 Each Tab.rapdis, 1.5 EACH PO QID, TAB 03/27/21 Ropinirole HCl (Ropinirole HCl) 0.5 Mg Tablet, 0.5 MG PO TID TAKES 1MG + 0.5MG TOGETHER TO EQUAL 1.5MG 03/27/21 Ciprofloxacin HCl (Ciprofloxacin HCl) 500 Mg Tablet, 500 MG PO BID FILLED 03-24-2021 #03/21 DAY SUPPLY 03/27/21 Objective Exam Right hip/leg: Skin intact, +DF of ankle, sensation grossly intact to light touch, pulses palpable Vital Signs Vital Signs Date Time Temp Pulse Resp B/P (MAP) Pulse Ox O2 Delivery O2 Flow Rate FiO2 08/21/22 11:48 36.3 70 18 95/57 (70) 92 Nasal Cannula 4.00 08/21/22 08:51 36.0 68 18 177/82 (113) 93 Nasal Cannula 4.00 08/21/22 08:00 Room Air 08/21/22 06:55 96 Nasal Cannula 3.00 08/21/22 06:29 36.0 69 97 36 08/21/22 04:28 97 Nasal Cannula 4.00 08/21/22 03:15 Nasal Cannula 4.00 08/21/22 03:11 35.9 69 16 169/79 (109) 99 Nasal Cannula 4.00 08/21/22 02:48 36.5 59 14 159/97 98 Nasal Cannula 2.00 08/21/22 01:40 36.7 60 18 107/63 (78) 97 Nasal Cannula 3.00 I & O 08/21/22 07:00 Intake Total 200 ml Output Total 225 ml Balance -25 ml Lab Results Laboratory Tests 08/21/22 01:50: White Blood Count 9.8, Red Blood Count 4.45, Hemoglobin 12.7, Hematocrit 41, Mean Corpuscular Volume 92, Mean Corpuscular Hemoglobin 29, Mean Corpuscular Hemoglobin Concent 31L, Red Cell Distribution Width 14.7H, Platelet Count 216, Mean Platelet Volume 9.8, Immature Granulocyte % (Auto) 0, Neutrophils (%) (Auto) 70, Lymphocytes (%) (Auto) 17, Monocytes (%) (Auto) 9, Eosinophils (%) (Auto) 4, Basophils (%) (Auto) 1, Neutrophils # (Auto) 6.9, Lymphocytes # (Auto) 1.7, Monocytes # (Auto) 0.9, Eosinophils # (Auto) 0.3, Basophils # (Auto) 0.1, Immature Granulocyte # (Auto) 0.0, Prothrombin Time 14.5, INR Comment 1.1, Activated Partial Thromboplast Time 29, Sodium Level 145, Potassium Level 3.8, Chloride Level 109H, Carbon Dioxide Level 26, Anion Gap 10, Blood Urea Nitrogen 26H, Creatinine 0.89, Estimat Glomerular Filtration Rate 63, BUN/Creatinine Ratio 29, Glucose Level 103, Calcium Level 8.6, Corrected Calcium 8.7, Magnesium Level 2.1, Total Bilirubin 0.3, Aspartate Amino Transf (AST/SGOT) 21, Alanine Aminotransferase (ALT/SGPT) 11, Alkaline Phosphatase 49, Total Protein 6.9, Albumin 3.9 08/21/22 02:15: Urine Color YELLOW, Urine Clarity CLEAR, Urine pH 6.0, Urine Specific [place] >=1.030, Urine Protein 1+H, Urine Glucose (UA) NEGATIVE, Urine Ketones TRACEH, Urine Nitrite NEGATIVE, Urine Bilirubin NEGATIVE, Urine Urobilinogen 0.2, Urine Leukocyte Esterase NEGATIVE, Urine RBC (Auto) TRACE-IH, Urine RBC 5-10H, Urine WBC RARE, Urine Squamous Epithelial Cells RARE, Urine Crystals NONE, Urine Bacteria NEGATIVE, Urine Casts PRESENT, Urine Hyaline Casts 0-2H, Urine Mucus NEGATIVE, Urine Culture Indicated NO Imaging X-rays dated 08/21/22 were reviewed from PACS and demonstrated peritrochanteric fracture of the right proximal femur Assessment and Plan Assessment Right Peritrochanteric Femur Fracture Problem List Right Peritrochanteric Femur Fracture Plan I have recommended proceeding with intramedullary nailing of the fracture. Nature of the procedure and the postoperative course were discussed. Risks and benefits were discussed. Consent to be obtained. Secondary to patient's dosing of Elliquis, will elect to proceed on 08/22/22. Currently scheduled for 12:30. Final Diagonsis Right Peritrochanteric Femur Fracture Level of the visit: Level 3 (global) LITA CHEN MD Aug 21, 2022 12:55
--- NOTE | 2022-08-21 13:59 | Consultation-Cardiology ---
HPI-Cardiology Cardiology Consultation Date of Consultation 08/21/22 Date of Admission Time Seen by Provider: 13:30 Indication: Preoperative cardiac evaluation HPI Consultation request for cardiac clearance of right hip repair. Pt is a 87 YO female with hx of PAF, CAD, sinus node dysfunction with bradycardia, HTN and HLD, with a right hip fracture. Pt fell earlier today after tripping over her feet, falling onto the right side with subsequent right hip fracture. She denies chest pain, shortness of breath, syncope, dizziness or lightheadedness. 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 Last dose of eliquis was 10:30pm yesterday. She also reports hx of Parkinson's Disease and [place] Palsy, with current right facial droop. She wears CPAP at night. Denies any other complaints. Dr. Ontiveros, orthopedist, plans to do right hip repair tomorrow. She is at intermediate risk, will defer to surgeon for risk vs. benefit stratification. Continue to hold eliquis for 24 hours pre and post op. Home Medications & Allergies Allergies: Coded Allergies: Sulfa (Sulfonamide Antibiotics) (Verified Allergy, Unknown, hives, 11/16/19) Home Medication List Reviewed: Yes [id number] Hx Patient Social History Marital Status: Employed/Student: retired Smoking Status: Never a Smoker Type Used: Cigarettes Recent Hopitalizations: No Have you traveled recently?: No Alcohol Use?: No Immunizations Up To Date Tetanus Booster (TDap): Less than 5yrs Date of Pneumonia Vaccine: Feb 20, 2016 Date of Influenza Vaccine: Jun 10, 2019 Past Medical History Discussed below Family Medical History Significant Family History: No Pertinent Family Hx Family History: Cardiovascular disease 19 FATHER Hypertension 19 FATHER Review of Systems-General Review of Systems Constitutional: see HPI; No chills, No dizziness, No fever, No malaise EENTM: see HPI, no symptoms reported Respiratory: no symptoms reported, see HPI Cardiovascular: No chest pain, No edema, No palpitations, No syncope Gastrointestinal: no symptoms reported; No loss of appetite, No nausea, No vomiting Genitourinary: no symptoms reported : No Musculoskeletal: back pain (chronic), other (right hip pain) Skin: no symptoms reported Psychiatric/Neurological: Anxiety All Other Systems Reviewed Negative Unless Noted: Yes Reviewed Test Results Reviewed Test Results Lab Laboratory Tests Test 08/21/22 01:50 08/21/22 02:15 Range/Units White Blood Count 9.8 4.3-11.0 10^3/uL Red Blood Count 4.45 3.80-5.11 10^6/uL Hemoglobin 12.7 11.5-16.0 g/dL Hematocrit 41 35-52 % Mean Corpuscular Volume 92 80-99 fL Mean Corpuscular Hemoglobin 29 25-34 pg Mean Corpuscular Hemoglobin Concent 31 L 32-36 g/dL Red Cell Distribution Width 14.7 H 10.0-14.5 % Platelet Count 216 130-400 10^3/uL Mean Platelet Volume 9.8 9.0-12.2 fL Immature Granulocyte % (Auto) 0 % Neutrophils (%) (Auto) 70 42-75 % Lymphocytes (%) (Auto) 17 12-44 % Monocytes (%) (Auto) 9 0-12 % Eosinophils (%) (Auto) 4 0-10 % Basophils (%) (Auto) 1 0-10 % Neutrophils # (Auto) 6.9 1.8-7.8 10^3/uL Lymphocytes # (Auto) 1.7 1.0-4.0 10^3/uL Monocytes # (Auto) 0.9 0.0-1.0 10^3/uL Eosinophils # (Auto) 0.3 0.0-0.3 10^3/uL Basophils # (Auto) 0.1 0.0-0.1 10^3/uL Immature Granulocyte # (Auto) 0.0 0.0-0.1 10^3/uL Prothrombin Time 14.5 12.2-14.7 SEC INR Comment 1.1 0.8-1.4 Activated Partial Thromboplast Time 29 24-35 SEC Sodium Level 145 135-145 MMOL/L Potassium Level 3.8 3.6-5.0 MMOL/L Chloride Level 109 H 98-107 MMOL/L Carbon Dioxide Level 26 21-32 MMOL/L Anion Gap 10 5-14 MMOL/L Blood Urea Nitrogen 26 H 7-18 MG/DL Creatinine 0.89 0.60-1.30 MG/DL Estimat Glomerular Filtration Rate 63 BUN/Creatinine Ratio 29 Glucose Level 103 70-105 MG/DL Calcium Level 8.6 8.5-10.1 MG/DL Corrected Calcium 8.7 8.5-10.1 MG/DL Magnesium Level 2.1 1.6-2.4 MG/DL Total Bilirubin 0.3 0.1-1.0 MG/DL Aspartate Amino Transf (AST/SGOT) 21 5-34 U/L Alanine Aminotransferase (ALT/SGPT) 11 0-55 U/L Alkaline Phosphatase 49 40-136 U/L Total Protein 6.9 6.4-8.2 GM/DL Albumin 3.9 3.2-4.5 GM/DL Urine Color YELLOW Urine Clarity CLEAR Urine pH 6.0 5-9 Urine Specific [place] >=1.030 1.016-1.022 Urine Protein 1+ H NEGATIVE Urine Glucose (UA) NEGATIVE NEGATIVE Urine Ketones TRACE H NEGATIVE Urine Nitrite NEGATIVE NEGATIVE Urine Bilirubin NEGATIVE NEGATIVE Urine Urobilinogen 0.2 < = 1.0 MG/DL Urine Leukocyte Esterase NEGATIVE NEGATIVE Urine RBC (Auto) TRACE-I H NEGATIVE Urine RBC 5-10 H /HPF Urine WBC RARE /HPF Urine Squamous Epithelial Cells RARE /HPF Urine Crystals NONE /LPF Urine Bacteria NEGATIVE /HPF Urine Casts PRESENT /LPF Urine Hyaline Casts 0-2 H /LPF Urine Mucus NEGATIVE /LPF Urine Culture Indicated NO Physical Exam Physical Exam Vital Signs Vital Signs - First Documented 08/21/22 08/21/22 01:40 06:29 Temp 36.7 Pulse 60 Resp 18 B/P (MAP) 107/63 (78) Pulse Ox 97 O2 Delivery Nasal Cannula O2 Flow Rate 3.00 FiO2 36 Capillary Refill : Less Than 3 Seconds Height, Weight, BMI Height: 5'7.00" Weight: 123lbs. 2.0oz. [id number]; 20.22 BMI Method:Stated General Appearance: No Apparent Distress, Anxious, Other (Elderly female in NAD.) Eyes: Bilateral Eye PERRL, Bilateral Eye EOMI HEENT: PERRL/EOMI; No Other (Left facial droop secondary to [place] Palsy) Neck: Full Range of Motion, Non Tender, Supple Respiratory: Chest Non Tender, Lungs Clear, Normal Breath Sounds Cardiovascular: Regular Rate, Rhythm, No Edema, Normal Peripheral Pulses Gastrointestinal: Non Tender, Soft Back: Normal Inspection Extremity: No Calf Tenderness, No Pedal Edema, Other (Right hip is equisitely tender to palpation/any movement. Patient guards against movement of lower limbs.) Neurologic/Psychiatric: Alert, Oriented x3, Normal Mood/Affect Skin: Normal Color, Warm/Dry Lymphatic: No Adenopathy A/P-Cardiology Admission Diagnosis Right Hip Fracture PAF Sinus Node Dysfunction with Bradycardia CAD Assessment/Plan Right hip fracture, Patient is scheduled for hip surgery tomorrow. Nonobstructive coronary artery disease per cardiac catheterization done January 21, 2019. Repeat cardiac catheterization done June 2019 showed tortuous coronaries with nonobstructive disease, continue to monitor. Paroxysmal atrial fibrillation. Previous intolerance to Cardizem secondary to hypotension and sotalol secondary to prolonged QT interval. Currently managed by [facility] Clinical Social Work Therapist. Loop recorder in place and managed with Flecinide 50mg BID and Eliquis 2.5mg BID. Sinus Node Dysfunction with Bradycardia HR 70 today. She is not currently taking any amiodorone. Was recently started on Norvasc 5mg. Continue to monitor History of Dick's palsy Current right facial drop. It is questionable if this is d/t [place] Palsy vs Parkinson's Disease. Hypertension, although hypotensive this afternoon. She is currently on 5mg of Norvasc. Hold amlodipine and monitor blood pressure Hyperlipidemia, currently on lovastatin, continue to monitor History of Parkinson's. She is followed by [facility] neurologist and neurologist for this with most recent head and neck MRIs two days ago. Nonobstructive carotid artery stenosis per carotid duplex done February 2019, continue to monitor. Pt is at intermediate perioperative risk for perioperative cardiovascular complication. Will defer to surgeon for risk vs. benefit. Recommend perioperative and postoperative telemetry due to sinus node dysfunction with bradycardia, PAF, and CAD. Hold eliquis 24-48 hours prior to and following surgery. Clinical Quality Measures DVT/VTE Risk/Contraindication: Contraindications-Pharm: Other *list below* Other: OR Supervisory-Addendum Brief Verification & Attestation Participated in pt care: history, MDM, physical Personally performed: exam, history, MDM, supervision of care Care discussed with: Medical Student Procedures: n/a Results interpretation: Verified all documentation Verification and Attestation of Medical Student E/M Service A medical student performed and documented this service in my presence. I reviewed and verified all information documented by the medical student and made modifications to such information, when appropriate. I personally performed the physical exam and medical decision making. Patient was seen at bedside laying down comfortably Feeling better after receiving pain medication Heart rate is in the 70s We will evaluate twelve-lead EKG Extensive cardiac history as described above, nonobstructive coronary artery disease per cardiac catheterization History of sinus node dysfunction, paroxysmal atrial fibrillation, currently in sinus rhythm and maintained on flecainide 50 mg twice daily On Eliquis 2.5 mg twice daily due to her age and weight. Patient is considered at intermediate risk for perioperative cardiovascular complication, decision regarding the surgery, risk versus benefit is deferred to the surgeon. May hold Eliquis for 24 to 48 hours prior to the surgery and restart the medicat ion postoperatively when deemed reasonable by the surgeon Recommend telemetry monitoring perioperatively due to her history of sinus node dysfunction and paroxysmal atrial fibrillation Estrella Kaplan, Aug 21, 2022,15:49 AWAIS SALMERON Aug 21, 2022 13:59 ESTRELLA KAPLAN MD Aug 21, 2022 15:50
[2022-08-21] MEDS ORDERED: ROPI2TAB6 PO (15:37)
[2022-08-21] MEDS ORDERED: MELA10TA2 PO (15:37)
[2022-08-21] MEDS ORDERED: AMLO-250 PO (15:37)
[2022-08-21] MEDS ORDERED: CARB1TAB32 PO (15:37)
[2022-08-21] MEDS ORDERED: VITA0.4T2 PO (15:37)
[2022-08-21] MEDS ORDERED: MULT-1136 PO (15:37)
[2022-08-21] MEDS ORDERED: SERT-412 PO (15:37)
[2022-08-22] VITALS (14 sets, daily range): BP systolic 74–188; BP diastolic 46–96
[2022-08-22] MEDS: fentaNYL INJ 100 MCG/2 ML AMP IV PRN ×6 (00:28→16:22)
[2022-08-22] MEDS: SINEMET 25/100 (CARBIDOPA/LEVODOPA) TAB PO SCH ×5 (05:09→20:00)
[2022-08-22] MEDS: MULTIVIT W/MINERALS TAB (THERAGRAN M) PO SCH (05:09)
[2022-08-22 05:37] LABS: BASOPHILS % (AUTO) 0 % (0-10); EOSINOPHILS # (AUTO) 0.2 10^3/uL (0.0-0.3); EOSINOPHILS % (AUTO) 2 % (0-10); HEMATOCRIT 42 % (35-52); HEMOGLOBIN 13.1 g/dL (11.5-16.0); LYMPHOCYTES # (AUTO) 1.3 10^3/uL (1.0-4.0); LYMPHOCYTES % (AUTO) 14 % (12-44); MEAN CORPUSCULAR HEMOGLOBIN 29 pg (25-34); MEAN CORPUSCULAR HGB CONC 31 g/dL (32-36); MEAN CORPUSCULAR VOLUME 92 fL (80-99); MEAN PLATELET VOLUME 10.3 fL (9.0-12.2); MONOCYTES # (AUTO) 1.2 10^3/uL (0.0-1.0); MONOCYTES % (AUTO) 13 % (0-12); NEUTROPHILS # (AUTO) 6.7 10^3/uL (1.8-7.8); NEUTROPHILS % (AUTO) 71 % (42-75); PLATELET COUNT 180 10^3/uL (130-400); WHITE BLOOD COUNT 9.4 10^3/uL (4.3-11.0)
[2022-08-22 06:08] LABS: ALBUMIN 3.4 GM/DL (3.2-4.5); CALCIUM 8.9 MG/DL (8.5-10.1); CREATININE SERUM 0.76 MG/DL (0.60-1.30); POTASSIUM 4.4 MMOL/L (3.6-5.0); TOTAL PROTEIN 6.2 GM/DL (6.4-8.2)
--- NOTE | 2022-08-22 08:34 | Cardiology Progress Note ---
Subjective Date Seen by Provider: Aug 22, 2022 Time Seen by Provider: 07:45 Subjective/Events-last exam Pt resting in mild discomfort secondary to right hip pain. She denies chest pain, palpitations, dizziness, headaches, or any other acute sx. Morning blood pressure is 156/75 and pulse is 79. She has been NPO since midnight with anticoagulation held. Hip repair is scheduled for 12:30 this afternoon. Review of Systems General: No Chills, No Night Sweats HEENT: No Head Aches, No Visual Changes Pulmonary: No Dyspnea, No Cough Cardiovascular: No: Chest Pain, Palpitations, Edema Gastrointestinal: No: Nausea, Vomiting, Diarrhea Genitourinary: No Dysuria, No Frequency Musculoskeletal: leg pain (right hip pain) Neurological: No: Weakness, Numbness Objective-Cardiology Exam Last Set of Vital Signs Vital Signs 08/21/22 08/22/22 06:29 15:49 Temp 37.4 Pulse 83 Resp 18 B/P (MAP) 122/59 (80) Pulse Ox 92 O2 Delivery Nasal Cannula O2 Flow Rate 3.00 FiO2 36 I&O Intake and Output 08/22/22 00:00 Intake Total 2260 ml Output Total 1675 ml Balance 585 ml Intake Oral 1060 ml IV Total 1200 ml Output Urine Total 1675 ml Daily Weight Change No Results Lab Laboratory Tests 08/22/22 05:13 A/P-Cardiology Admission Diagnosis Right Hip Fracture PAF Sinus Node Dysfunction with Bradycardia CAD Assessment/Plan Right hip fracture, Patient is scheduled for hip surgery this afternoon. Nonobstructive coronary artery disease per cardiac catheterization done January 21, 2019. Repeat cardiac catheterization done June 2019 showed tortuous coronaries with nonobstructive disease, continue to monitor. Paroxysmal atrial fibrillation. Previous intolerance to Cardizem secondary to hypotension and sotalol secondary to prolonged QT interval. Currently managed by [facility] Nail Kegger. Loop recorder in place and managed with Flecinide 50mg BID and Eliquis 2.5mg BID. Eliquis held over night. EKG has been ordered twice, will obtain as soon as it is completed. Sinus Node Dysfunction with Bradycardia HR 79 today. She is not currently taking any amiodorone. Was recently started on Norvasc 5mg. Continue to monitor EKG has been ordered twice, will obtain as soon it is completed. History of Dick's palsy Current right facial drop. It is questionable if this is d/t [place] Palsy vs Parkinson's Disease. Hypertension, slightly elevated this morning at 156/75. She is currently on 5mg of Norvasc. Hold amlodipine and monitor blood pressure Continue amlodipine following surgery this afternoon Hyperlipidemia, currently on lovastatin, continue to monitor History of Parkinson's. She is followed by [facility] neurologist and neurologist for this with most recent head and neck MRIs two days ago. Nonobstructive carotid artery stenosis per carotid duplex done February 2019, continue to monitor. Pt is at intermediate perioperative risk for perioperative cardiovascular com plication. Deferred to surgeon for risk vs. benefit. Recommend perioperative and postoperative telemetry due to sinus node dysfunction with bradycardia, PAF, and CAD. Eliquis held 24-48 hours prior to and following surgery. Clinical Quality Measures DVT/VTE Risk/Contraindication: Contraindications-Pharm: Other *list below* Other: OR Supervisory-Addendum Brief Verification & Attestation Participated in pt care: history, MDM, physical Personally performed: exam, history, MDM, supervision of care Care discussed with: Medical Student Procedures: n/a Results interpretation: Verified all documentation Verification and Attestation of Medical Student E/M Service A medical student performed and documented this service in my presence. I reviewed and verified all information documented by the medical student and made modifications to such information, when appropriate. I personally performed the physical exam and medical decision making. Patient was seen and evaluated postoperatively, EKG was reviewed. Comfortable No arrhythmia was noted Continue to monitor blood pressure and heart rate No changes are recommended Estrella Kaplan Aug 22, 2022,16:15 AWAIS SALMERON Aug 22, 2022 08:34 ESTRELLA KAPLAN MD Aug 22, 2022 16:15
[2022-08-22] MEDS ORDERED: LACTATED RINGERS 1,000 ML IV PRN ×2 (08:45→12:30)
[2022-08-22] MEDS ORDERED: FLECAINIDE 100 MG (TAMBOCOR) TAB PO SCH (09:00)
[2022-08-22] MEDS ORDERED: DOCUSATE SODIUM 100 MG (COLACE) CAP PO SCH (09:00)
[2022-08-22] MEDS: FLECAINIDE 100 MG (TAMBOCOR) TAB PO SCH ×2 (09:34→20:00)
[2022-08-22] MEDS: DOCUSATE SODIUM 100 MG (COLACE) CAP PO SCH ×2 (09:44→19:59)
[2022-08-22] MEDS: rOPINIRole 1 MG (REQUIP) TABLET PO SCH ×3 (09:44→20:00)
[2022-08-22] MEDS: amLODIPine 5 MG (NORVASC) TAB PO SCH (09:44)
[2022-08-22] MEDS: SENNOSIDES 8.6 MG (SENOKOT) TAB PO SCH ×2 (09:45→19:59)
[2022-08-22] MEDS: SERTRALINE 50 MG (ZOLOFT) TABLET PO SCH (09:45)
--- NOTE | 2022-08-22 11:51 | Progress Note ---
MARILEE STACY 08/22/22 1151: Subjective Date Seen by a Provider: Aug 22, 2022 Time Seen by a Provider: 08:00 Subjective/Events-last exam Patient is seen at bedside this morning. She is very uncomfortable and said her night was horrible. She reports minimal pain control and needs PRNs as often as she can get them. She did not each very much yesterday before she went NPO as she didn't feel up for it. She's complaining of dry mouth/sore throat from being on NC. She's having gas and maintaining good urine output. Her surgery for hip repair is scheduled for 12:30 today. Objective Exam Last Set of Vital Signs Vital Signs Date Time Temp Pulse Resp B/P (MAP) Pulse Ox O2 Delivery O2 Flow Rate FiO2 08/22/22 11:37 36.9 82 18 159/87 (111) 93 Nasal Cannula 4.00 08/21/22 06:29 36 Capillary Refill : Less Than 3 Seconds I&O Intake and Output 08/22/22 00:00 Intake Total 2260 ml Output Total 1675 ml Balance 585 ml Intake Oral 1060 ml IV Total 1200 ml Output Urine Total 1675 ml Daily Weight Change No General: Alert, Oriented X3, Mild Distress HEENT: EOMI Heart: Regular Rate, Normal S1, Normal S2 Abdomen: Normal Bowel Sounds, Soft, No Tenderness Extremities: No Edema, Normal Pulses, Other (Right hip/pelvis is equisitely painful to touch and patient is guarding against any movement of lower extremities.) Skin: No Rashes Psych/Mental Status: Mental Status NL, Mood NL Results Lab Laboratory Tests 08/22/22 05:13: White Blood Count 9.4, Red Blood Count 4.53, Hemoglobin 13.1, Hematocrit 42, Mean Corpuscular Volume 92, Mean Corpuscular Hemoglobin 29, Mean Corpuscular Hemoglobin Concent 31L, Red Cell Distribution Width 14.7H, Platelet Count 180, Mean Platelet Volume 10.3, Immature Granulocyte % (Auto) 0, Neutrophils (%) (Auto) 71, Lymphocytes (%) (Auto) 14, Monocytes (%) (Auto) 13H, Eosinophils (%) (Auto) 2, Basophils (%) (Auto) 0, Neutrophils # (Auto) 6.7, Lymphocytes # (Auto) 1.3, Monocytes # (Auto) 1.2H, Eosinophils # (Auto) 0.2, Basophils # (Auto) 0.0, Immature Granulocyte # (Auto) 0.0, Sodium Level 139, Potassium Level 4.4, Chloride Level 103, Carbon Dioxide Level 29, Anion Gap 7, Blood Urea Nitrogen 11, Creatinine 0.76, Estimat Glomerular Filtration Rate 77, BUN/Creatinine Ratio 14, Glucose Level 105, Calcium Level 8.9, Corrected Calcium 9.4, Total Bilirubin 1.0, Aspartate Amino Transf (AST/SGOT) 18, Alanine Aminotransferase (ALT/SGPT) 8, Alkaline Phosphatase 48, Total Protein 6.2L, Albumin 3.4 Microbiology 08/21/22 MRSA Screen - Final, Complete MRSA not isolated Radiology NAME: [facility] REC#: [id number] PT STATUS: ADM IN : 1935 PHYSICIAN: KING CHOUDHURY MD ADMIT DATE: 08/21/22 Signed Date of Exam:08/21/22 PELVIS WITH RIGHT HIP 2-3VIEWS INDICATION: Fall with pelvic and hip pain TECHNIQUE: AP pelvis along with 2 views right hip, 2:09 AM CORRELATION STUDY: None FINDINGS: Comminuted, impacted right proximal femur fracture. Main fracture line just below the intertrochanteric aspect but does extend into the intertrochanteric region. Alignment is near anatomic. Femoral head acetabular relationship are maintained. Findings suggest a previous extensive bilateral superior and inferior pubic rami fracture deformities. Moderately advanced degenerative change of the left hip. IMPRESSION: Comminuted, slightly impacted acute right proximal femur fracture. Dictated by: Dictated on workstation # [id number] Dict: 08/21/22 07 Trans: 08/21/22 0932 [place] [id number] Interpreted by: SP PINZON DO Electronically signed by: SP PINZON DO 08/21/22 0932 Assessment/Plan Assessment/Plan Assess & Plan/Chief Complaint Assessment: This is an 87 y/o female who presented to the ED after a non-syncopal fall and severe right hip pain who was also found to be hypoxic on arrival, now HD#1 Right proximal femur fracture Hypoxia PAF CHF HTN CAD Parkinson's Disease Plan Right proximal femur fracture - to OR today -Ortho managing -Pain control: PO oxy, APAP PRN, IV fentanyl PRN for breakthrough -Hgb 12.7 --> 13.1 (3.9) Coags WNL on admission but on Apixiban for PAF - cardioogy recommended continuing to hold upto 24-48 hours post-operatively. -Normotensive, VSS. Hypoxia -Currently on 3 L N.C, satting low 90s. -Wears N.C at home during nighttime with O2 concentrator, unsure of baseline flow rate. -CXR showed mild edema, normal lung exam -Likely some aspect of chronicity exacerbated by narcotic administration as patient O2 sats were normal prior to admin per EMS -Can do humidified N.C after OR as patient complaining of dryness/soreness since being on O2 here PAF -On Apixiban 2.5mg BID - hold, last dose was PM 3/6, hold upto 24-48 hours post- op per cardiology -On flecainide - continue -NSR on exam/monitor today -Cardiology following; appreciate recs. CHF CAD HTN - new -Will get echo to evaluate --> pending -Consult cardiology - appreciate recs. -Held amlodipine 5mg for hypotensive BPs Parkinson's Disease -Carbidopa/levodopa 25-100mg 1.5 tabs QID at home - continue -Ropinriole 1.5mg daily - continue FEN/GI -Maintenance fluids - LR 75 ml/hr -NPO for surgery today -Replace electrolytes PRN -Bowel regimen Dispo: To OR today for right hip fx repair. Stable labs/vitals. Will FU on echo while inpatient, cardiology following. Clinical Quality Measures Admission Status Admission Dx Vital Signs Date Time Temp Pulse Resp B/P (MAP) Pulse Ox O2 Delivery O2 Flow Rate FiO2 08/21/22 08:51 36.0 68 18 177/82 (113) 93 Nasal Cannula 4.00 08/21/22 08:00 Room Air 08/21/22 06:55 96 Nasal Cannula 3.00 08/21/22 06:29 36.0 69 97 36 08/21/22 04:28 97 Nasal Cannula 4.00 08/21/22 03:15 Nasal Cannula 4.00 08/21/22 03:11 35.9 69 16 169/79 (109) 99 Nasal Cannula 4.00 08/21/22 02:48 36.5 59 14 159/97 98 Nasal Cannula 2.00 08/21/22 01:40 36.7 60 18 107/63 (78) 97 Nasal Cannula 3.00 I & O 08/21/22 07:00 Intake Total 200 ml Output Total 225 ml Balance -25 ml Radiology Results: NAME: [facility] REC#: [id number] PT STATUS: ADM IN : 1935 PHYSICIAN: KING CHOUDHURY MD ADMIT DATE: 08/21/22 Signed Date of Exam:08/21/22 PELVIS WITH RIGHT HIP 2-3VIEWS INDICATION: Fall with pelvic and hip pain TECHNIQUE: AP pelvis along with 2 views right hip, 2:09 AM CORRELATION STUDY: None FINDINGS: Comminuted, impacted right proximal femur fracture. Main fracture line just below the intertrochanteric aspect but does extend into the intertrochanteric region. Alignment is near anatomic. Femoral head acetabular relationship are maintained. Findings suggest a previous extensive bilateral superior and inferior pubic rami fracture deformities. Moderately advanced degenerative change of the left hip. IMPRESSION: Comminuted, slightly impacted acute right proximal femur fracture. Dictated by: Dictated on workstation # [id number] Dict: 08/21/22 0700 Trans: 08/21/22 0932 [place] [id number] Interpreted by: SP PINZON DO Electronically signed by: SP PINZON DO 08/21/2232 NAME: [facility] REC#: [id number] PT STATUS: ADM IN : 1935 PHYSICIAN: KING CHOUDHURY MD ADMIT DATE: 08/21/22 Signed Date of Exam:08/21/22 CHEST 1 VIEW, AP/PA ONLY INDICATION: Pelvic and hip pain post fall. TECHNIQUE: Single view chest 2:07 AM. CORRELATION STUDY: 01/09/2022 FINDINGS: Heart size and mediastinum are more prominent. Vasculature is slightly increased. Loop recorder device remains present. Mildly prominent interstitial markings. No infiltrate. Prior kyphoplasty changes. Severely advanced degenerative and likely prior traumatic change of the right shoulder. Postop changes left humeral head. IMPRESSION: 1. Heart size and mediastinal vasculature overall appears slightly more prominent from prior suggestive component of mild edema. Dictated by: Dictated on workstation # [id number] Dict: 08/21/22699 Trans: 08/21/22931 [place] [id number] Interpreted by: SP PINZON DO Electronically signed by: SP PINZON DO 08/21/22931 Assessment: This is an 87 y/o female who presented to the ED after a non-syncopal fall and severe right hip pain who was also found to be hypoxic on arrival Right proximal femur fracture Hypoxia PAF CHF HTN CAD Parkinson's Disease Plan Right proximal femur fracture -Ortho managing -Plan for OR and repair tomorrow 08/22 -Pain control: PO oxy, APAP PRN, IV fentanyl PRN for breakthrough -Hgb 12.7, Coags WNL on admission -Normotensive, VSS. Hypoxia -Currently on 3 L N.C, satting mid 90s. -Wears N.C at home during nighttime with O2 concentrator, unsure of baseline flow rate. -CXR showed mild edema, normal lung exam -Likely some aspect of chronicity exacerbated by narcotic administration as patient O2 sats were normal prior to admin per EMS PAF -On Apixiban 2.5mg BID - hold, last dose was PM 3/6 -On flecainide - continue -NSR on exam/monitor today -Will consult cardiology to evaluate in anticipation for surgery potentially exacerbating a-fib. CHF CAD HTN - new -Will get echo to evaluate -Will start amlodipine for elevated BPs inpatient -Consult cardiology - appreciate recs. Parkinson's Disease -Carbidopa/levodopa 25-100mg 1.5 tabs QID at home - continue -Ropinriole 1.5mg daily - continue FEN/GI -Maintenance fluids - LR 75 ml/hr -Regular diet, NPO at midnight -Replace electrolytes PRN -Bowel regimen DVT/VTE Risk/Contraindication: Contraindications-Pharm: Other *list below* Other: MARYJANE SOLITARIO DO 08/22/222047: Supervisory-Addendum Brief Verification & Attestation Participated in pt care: history, MDM, physical Personally performed: exam, history, MDM, supervision of care Care discussed with: Medical Student Procedures: n/a Results interpretation: Verified all documentation Verification and Attestation of Medical Student E/M Service A medical student performed and documented this service in my presence. I reviewed and verified all information documented by the medical student and made modifications to such information, when appropriate. I personally performed the physical exam and medical decision making. Maryjane Tapia, Aug 22, 2022,20:48 MARILEE STACY Aug 22, 2022 11:51 MARYJANE TAPIA DO Aug 22, 2022 20:48
[2022-08-22] MEDS ORDERED: ceFAZolin INJECTION 1,000 MG VIAL IV NR (12:00)
[2022-08-22] MEDS ORDERED: SEVOFLURANE (ULTANE) 15 ML INHAL SOLN ONE ×2 (12:10→13:27)
[2022-08-22] MEDS ORDERED: proPOfol 200 MG/20 ML (DIPRIVAN) VIAL IV ONE (12:10)
[2022-08-22] MEDS ORDERED: LIDOCAINE PF 2% 5 ML (XYLOCAINE) VIAL ONE (12:10)
[2022-08-22] MEDS ORDERED: fentaNYL INJ 100 MCG/2 ML AMP ONE (12:10)
[2022-08-22] MEDS ORDERED: ceFAZolin INJECTION 0 MG ONE (12:40)
--- NOTE | 2022-08-22 13:22 | Operative Report - Ortho ---
Operative Report Surgeon (s)/[facility] (s) Surgeon LITA CHEN MD [facility] n/a Pre-Operative Diagnosis Right Intertrochanteric Femur Fracture Post-Operative Diagnosis same Operative Report Date of Procedure: Aug 22, 2022 Name of Procedure Performed: Intramedullary Nailing of Right Intertrochanteric Femur Fracture Description & Findings After obtaining informed consent and marking the patient in the preoperative holding area, the patient was administered IV antibiotics and taken to the operating room. Anesthesia was induced. Patient was transferred to the fracture table. Surgical timeout was taken. The right lower extremity was placed in the traction spar and the left was placed in the well leg sherman. The right lower extremity was prepped and draped in the usual sterile fashion. Incision was made just proximal to the greater trochanter. Blunt dissection was performed down to the tip of the trochanter. A guide wire was placed through a trochanteric entry point. Position of the wire was confirmed using C-arm. An entry reamer was then placed over the guidewire and reamed to the level of the lesser trochanter. A trochanteric gamma nail with a 125 degree neck angle was selected and assembled on the back table. Nail was inserted through the trochanteric entry point and seated by hand. Position of the nail was confirmed using C-arm. A guide wire was placed for the cephalomedullary screw. Version of the wire was obtained on the lateral. Measurement was taken and the reamer was set to 95 mm. Reamer was used over the guidewire and then the cephalomedullary screw was placed. Position of the cephalomedullary screw was confirmed on C-arm. Set screw was then tightened onto the cephalomedullary screw and then backed off 1/4 turn. Attention was then turned to the distal screw and using the provided guides, a 35 mm screw was placed through the static portion of the distal slot. Final C arm images were obtained, demonstrated appropriate placement of hardware with adequate reduction, and were transferred to PACS. Incision sites were irrigated with normal saline. Closed subcutaneously with 2- 0 vicryl and skin was closed with orquidea. Dressed with xeroform, 4x4s, ABD, and tape. Patient tolerated the procedure well and was stable to the recovery room. Anesthesia Type General Estimated Blood Loss 100 mL Specimen(s) collected/removed None LITA CHEN MD Aug 22, 2022 13:22
--- NOTE | 2022-08-22 13:35 | Anesthesia-General Post-Op ---
General Patient Condition Mental Status/LOC: Same as Preop Cardiovascular: Satisfactory Nausea/Vomiting: Absent Respiratory: Satisfactory Pain: Controlled Complications: Absent Post Op Complications Complications None Follow Up Care/Instructions Patient Instructions None needed. Anesthesia/Patient Condition Patient Condition Patient is doing well, no complaints, stable vital signs, no apparent adverse anesthesia problems. No complications reported per nursing. GIANNI RICHMOND CRNA Aug 22, 2022 13:35
[2022-08-22] MEDS ORDERED: MEPERIDINE (DEMEROL) INJ 50 MG/ML IVP ONE (13:45)
[2022-08-22] MEDS ORDERED: morphine INJ 10 MG/ML 1ML (SYR OR VIAL) IVP ONE (13:45)
[2022-08-22] MEDS ORDERED: ONDANSETRON 4 MG/2 ML (SDV) Z0FRAN IVP PRN (13:45)
[2022-08-22] MEDS ORDERED: morphine INJ 10 MG/ML 1ML (SYR OR VIAL) ONE (14:04)
--- NOTE | 2022-08-22 14:37 | Physical Therapy Progress Note ---
Therapy Progress Note Patient being returned to room from OR upon PT arrival. PT spoke with nurse and in agreement to begin PT treatment in the am. ROULA MCCALL PT Aug 22, 2022 14:37
--- NOTE | 2022-08-22 17:16 | Diagnostic Imaging Report ---
INDICATION: Fracture. 57 seconds of fluoroscopy time were utilized during nailing of a hip fracture. IMPRESSION: Fluoroscopy utilized during orthopedic surgery. Dictated by: Dictated on workstation # [id number]
[2022-08-22] MEDS: LACTATED RINGERS 1,000 ML IV SCH (18:19)
[2022-08-22] MEDS: AtorvaSTATin TABLET 10 MG TABLET PO SCH (19:59)
[2022-08-22] MEDS: MELATONIN 10 MG TABLET PO SCH (19:59)
[2022-08-23] VITALS (7 sets, daily range): BP systolic 109–137; BP diastolic 55–67
[2022-08-23 05:46] LABS: BASOPHILS % (AUTO) 0 % (0-10); EOSINOPHILS # (AUTO) 0.1 10^3/uL (0.0-0.3); EOSINOPHILS % (AUTO) 1 % (0-10); HEMATOCRIT 37 % (35-52); HEMOGLOBIN 11.3 g/dL (11.5-16.0); LYMPHOCYTES # (AUTO) 1.1 10^3/uL (1.0-4.0); LYMPHOCYTES % (AUTO) 11 % (12-44); MEAN CORPUSCULAR HEMOGLOBIN 29 pg (25-34); MEAN CORPUSCULAR HGB CONC 31 g/dL (32-36); MEAN CORPUSCULAR VOLUME 93 fL (80-99); MEAN PLATELET VOLUME 10.7 fL (9.0-12.2); MONOCYTES # (AUTO) 1.4 10^3/uL (0.0-1.0); MONOCYTES % (AUTO) 14 % (0-12); NEUTROPHILS # (AUTO) 7.4 10^3/uL (1.8-7.8); NEUTROPHILS % (AUTO) 74 % (42-75); PLATELET COUNT 135 10^3/uL (130-400)
[2022-08-23 05:56] LABS: POTASSIUM 4.2 MMOL/L (3.6-5.0)
[2022-08-23 05:58] LABS: CALCIUM 8.3 MG/DL (8.5-10.1)
[2022-08-23 05:59] LABS: TOTAL PROTEIN 5.7 GM/DL (6.4-8.2)
[2022-08-23 06:01] LABS: BILIRUBIN,TOTAL 0.9 MG/DL (0.1-1.0)
[2022-08-23 06:02] LABS: CREATININE SERUM 0.85 MG/DL (0.60-1.30)
[2022-08-23] MEDS: MULTIVIT W/MINERALS TAB (THERAGRAN M) PO SCH (06:03)
[2022-08-23] MEDS: SINEMET 25/100 (CARBIDOPA/LEVODOPA) TAB PO SCH ×5 (06:04→19:43)
[2022-08-23] MEDS: LACTATED RINGERS 1,000 ML IV SCH ×2 (06:51→21:16)
--- NOTE | 2022-08-23 08:28 | Cardiology Progress Note ---
Subjective Date Seen by Provider: Aug 23, 2022 Time Seen by Provider: 08:25 Subjective/Events-last exam Patient was seen at bedside laying down comfortably, complaining of pain Review of Systems General: No Chills, No Night Sweats; Fatigue; No Malaise, No Appetite, No Other HEENT: No Head Aches, No Visual Changes, No Eye Pain, No Ear Pain, No Dysphasia, No Sinus Congestion, No Post Nasal Drip, No Sore Throat, No Other Pulmonary: No Dyspnea, No Cough, No Pleuritic Chest Pain, No Other Cardiovascular: No: Chest Pain, Palpitations, Orthopnea, Paroxysmal Noc. Dyspnea, Edema, Lt Headedness, Other Objective-Cardiology Exam Last Set of Vital Signs Vital Signs 08/21/22 08/23/22 06:29 08:09 Temp 36.9 Pulse 81 Resp 18 B/P (MAP) 125/58 (80) Pulse Ox 94 O2 Delivery Nasal Cannula O2 Flow Rate 3.00 FiO2 36 I&O Intake and Output 08/23/22 00:00 Intake Total 777 ml Output Total 2200 ml Balance -1423 ml Intake Oral 767 ml IV Total 10 ml Output Urine Total 2200 ml General: Alert, Oriented X3, Cooperative HEENT: Atraumatic, EOMI Neck: Supple, No JVD Heart: Regular Rate, Normal S1, Normal S2 Abdomen: Normal Bowel Sounds, Soft, No Tenderness Extremities: No Edema, Normal Pulses, Other (Right hip/pelvis is equisitely painful to touch and patient is guarding against any movement of lower extremities.) Skin: No Rashes Psych/Mental Status: Mental Status NL, Mood NL Results Lab Laboratory Tests 08/23/22 05:14 A/P-Cardiology Admission Diagnosis Right Hip Fracture PAF Sinus Node Dysfunction with Bradycardia CAD Assessment/Plan Right femur fracture Status post Intramedullary Nailing of Right Intertrochanteric Femur Fracture on August 22, 2022 Recovering well Nonobstructive coronary artery disease per cardiac catheterization done January 21, 2019. Repeat cardiac catheterization done June 2019 showed tortuous coronaries with nonobstructive disease, continue to monitor. Paroxysmal atrial fibrillation. Previous intolerance to Cardizem secondary to hypotension and sotalol secondary to prolonged QT interval. Currently managed by [facility] [employer]. Loop recorder in place and managed with Flecinide 50mg BID and Eliquis 2.5mg BID. Restart Eliquis and monitor H&H Sinus Node Dysfunction with Bradycardia HR 79 today. She is not currently taking any amiodorone. Was recently started on Norvasc 5mg. Continue to monitor History of Dick's palsy Current right facial drop. It is questionable if this is d/t [place] Palsy vs Parkinson's Disease. Hypertension, slightly elevated this morning at 156/75. She is currently on 5mg of Norvasc. Hold amlodipine and monitor blood pressure Continue amlodipine following surgery this afternoon Hyperlipidemia, currently on lovastatin, continue to monitor History of Parkinson's. She is followed by [facility] and [facility] t for this with most recent head and neck MRIs two days ago. Nonobstructive carotid artery stenosis per carotid duplex done February 2019, continue to monitor. ESTRELLA GRECO MD Aug 23, 2022 08:28
[2022-08-23] MEDS: rOPINIRole 1 MG (REQUIP) TABLET PO SCH ×3 (08:45→19:42)
[2022-08-23] MEDS: FLECAINIDE 100 MG (TAMBOCOR) TAB PO SCH ×2 (08:46→19:42)
[2022-08-23] MEDS: amLODIPine 5 MG (NORVASC) TAB PO SCH (08:46)
[2022-08-23] MEDS: SENNOSIDES 8.6 MG (SENOKOT) TAB PO SCH ×2 (08:47→19:42)
[2022-08-23] MEDS: SERTRALINE 50 MG (ZOLOFT) TABLET PO SCH (08:47)
[2022-08-23] MEDS: DOCUSATE SODIUM 100 MG (COLACE) CAP PO SCH ×2 (08:47→19:43)
[2022-08-23] MEDS: APIXABAN 2.5 MG (ELIQUIS) TABLET PO SCH ×2 (08:47→19:43)
--- NOTE | 2022-08-23 09:30 | Progress Note ---
MARILEE STACY 08/23/2230: Subjective Date Seen by a Provider: Aug 23, 2022 Time Seen by a Provider: 08:30 Subjective/Events-last exam Pt seen at bedside. Appears much more comfortable this AM. She says she's really only bothered this AM by gas pains. She is waiting for her nurse to help her to the cammode/toilet. She still endorses some Rt hip pain but it's much more manageable compared to pre-op. She denies CP, SOB, palpitations, N/V. She ate breakfast this AM and says it went well but appetite not fully back yet. She's ready to try to work with PT as she is very motivated to get out of the hospital. She has not required any IV pain medications since right after her aby marcella yesterday afternoon. Objective Exam Last Set of Vital Signs Vital Signs Date Time Temp Pulse Resp B/P (MAP) Pulse Ox O2 Delivery O2 Flow Rate FiO2 08/23/22 08:09 36.9 81 18 125/58 (80) 94 Nasal Cannula 3.00 08/21/22 06:29 36 Capillary Refill : Less Than 3 SecondsLess Than 3 Seconds I&O Intake and Output 08/23/22 00:00 Intake Total 777 ml Output Total 2200 ml Balance -1423 ml Intake Oral 767 ml IV Total 10 ml Output Urine Total 2200 ml General: Alert, Oriented X3 HEENT: PERRLA, EOMI Neck: Supple Heart: Regular Rate, Normal S1, Normal S2 Abdomen: Normal Bowel Sounds, Soft, No Tenderness Extremities: No Edema, Normal Pulses, Other (Right hip TTP. Dressing clean and dry over surgical site. ) Psych/Mental Status: Mental Status NL Results Lab Laboratory Tests 08/23/22 05:14: White Blood Count 10.0, Red Blood Count 3.94, Hemoglobin 11.3L, Hematocrit 37, Mean Corpuscular Volume 93, Mean Corpuscular Hemoglobin 29, Mean Corpuscular Hemoglobin Concent 31L, Red Cell Distribution Width 14.8H, Platelet Count 135, Mean Platelet Volume 10.7, Immature Granulocyte % (Auto) 1, Neutrophils (%) (Auto) 74, Lymphocytes (%) (Auto) 11L, Monocytes (%) (Auto) 14H, Eosinophils (%) (Auto) 1, Basophils (%) (Auto) 0, Neutrophils # (Auto) 7.4, Lymphocytes # (Auto) 1.1, Monocytes # (Auto) 1.4H, Eosinophils # (Auto) 0.1, Basophils # (Auto) 0.0, Immature Granulocyte # (Auto) 0.1, Sodium Level 138, Potassium Level 4.2, Chloride Level 102, Carbon Dioxide Level 28, Anion Gap 8, Blood Urea Nitrogen 17, Creatinine 0.85, Estimat Glomerular Filtration Rate 67, BUN/Creatinine Ratio 20, Glucose Level 108H, Calcium Level 8.3L, Corrected Calcium 9.1, Total Bilirubin 0.9, Aspartate Amino Transf (AST/SGOT) 15, Alanine Aminotransferase (ALT/SGPT) 7, Alkaline Phosphatase 37L, Total Protein 5.7L, Albumin 3.0L Microbiology 08/21/22 MRSA Screen - Final, Complete MRSA not isolated Radiology No new radiology to review. Assessment/Plan Assessment/Plan Assess & Plan/Chief Complaint Assessment: This is an 87 y/o female who presented to the ED after a non-syncopal fall and severe right hip pain who was also found to be hypoxic on arrival, now HD#2, post-op day 1 Right proximal femur fracture Hypoxia PAF CHF HTN CAD Parkinson's Disease Plan Right proximal femur fracture - POD#1 -Ortho managing -Pain control: PO oxy, APAP PRN, IV fentanyl PRN for breakthrough -Hgb 12.7 --> 13.1 --> 11.3 (08/23) Coags WNL -Work with PT today to determine further needs/placement -Normotensive, VSS. Hypoxia - chronic -Currently on 3 L N.C, satting low 90s. -Wears N.C at home during nighttime with O2 concentrator, unsure of baseline flow rate. -CXR showed mild edema, normal lung exams during hospital course. -Likely some aspect of chronicity exacerbated by narcotic administration as patient O2 sats were normal prior to admin per EMS -Can do humidified N.C after OR as patient complaining of dryness/soreness since being on O2 here PAF -On Apixiban 2.5mg BID - cardiology resumed today -On flecainide - continue -NSR on exam/monitor today -Cardiology following; appreciate recs. CHF CAD HTN - new -Will get echo to evaluate --> pending -Consult cardiology - appreciate recs. -Resuming amlodipine today. Parkinson's Disease -Carbidopa/levodopa 25-100mg 1.5 tabs QID at home - continue -Ropinriole 1.5mg daily - continue FEN/GI -Maintenance fluids - LR 75 ml/hr --> can DC today with diet resumption -Regular diet -Replace electrolytes PRN -Bowel regimen, protonix DVT Prophylaxis: SCDs, apixiban. Dispo: Stable, work with PT/OT and evaluate needs for DC today. Clinical Quality Measures Admission Status Admission Dx Vital Signs Date Time Temp Pulse Resp B/P (MAP) Pulse Ox O2 Delivery O2 Flow Rate FiO2 08/21/22 08:51 36.0 68 18 177/82 (113) 93 Nasal Cannula 4.00 08/21/22 08:00 Room Air 08/21/22 06:55 96 Nasal Cannula 3.00 08/21/22 06:29 36.0 69 97 36 08/21/22 04:28 97 Nasal Cannula 4.00 08/21/22 03:15 Nasal Cannula 4.00 08/21/22 03:11 35.9 69 16 169/79 (109) 99 Nasal Cannula 4.00 08/21/22 02:48 36.5 59 14 159/97 98 Nasal Cannula 2.00 08/21/22 01:40 36.7 60 18 107/63 (78) 97 Nasal Cannula 3.00 I & O 08/21/22 07:00 Intake Total 200 ml Output Total 225 ml Balance -25 ml Radiology Results: NAME: MJ KRAMER [facility] REC#: [id number] PT STATUS: ADM IN : 1935 PHYSICIAN: KING CHOUDHURY MD ADMIT DATE: 08/21/22 Signed Date of Exam:08/21/22 PELVIS WITH RIGHT HIP 2-3VIEWS INDICATION: Fall with pelvic and hip pain TECHNIQUE: AP pelvis along with 2 views right hip, 2:09 AM CORRELATION STUDY: None FINDINGS: Comminuted, impacted right proximal femur fracture. Main fracture line just below the intertrochanteric aspect but does extend into the intertrochanteric region. Alignment is near anatomic. Femoral head acetabular relationship are maintained. Findings suggest a previous extensive bilateral superior and inferior pubic rami fracture deformities. Moderately advanced degenerative change of the left hip. IMPRESSION: Comminuted, slightly impacted acute right proximal femur fracture. Dictated by: Dictated on workstation # [id number] Dict: 08/21/22699 Trans: 08/21/22931 [place] [id number] Interpreted by: SP PINZON DO Electronically signed by: SP PINZON DO 08/21/22931 NAME: MJ KRAMER [facility] REC#: [id number] PT STATUS: ADM IN : 1935 PHYSICIAN: KING CHOUDHURY MD ADMIT DATE: 08/21/22 Signed Date of Exam:08/21/22 CHEST 1 VIEW, AP/PA ONLY INDICATION: Pelvic and hip pain post fall. TECHNIQUE: Single view chest 2:07 AM. CORRELATION STUDY: 01/09/2022 FINDINGS: Heart size and mediastinum are more prominent. Vasculature is slightly increased. Loop recorder device remains present. Mildly prominent interstitial markings. No infiltrate. Prior kyphoplasty changes. Severely advanced degenerative and likely prior traumatic change of the right shoulder. Postop changes left humeral head. IMPRESSION: 1. Heart size and mediastinal vasculature overall appears slightly more prominent from prior suggestive component of mild edema. Dictated by: Dictated on workstation # [id number] Dict: 08/21/22699 Trans: 08/21/22931 [place] [id number] Interpreted by: SP PINZON DO Electronically signed by: SP PINZON DO 08/21/22931 Assessment: This is an 87 y/o female who presented to the ED after a non-syncopal fall and severe right hip pain who was also found to be hypoxic on arrival Right proximal femur fracture Hypoxia PAF CHF HTN CAD Parkinson's Disease Plan Right proximal femur fracture -Ortho managing -Plan for OR and repair tomorrow 08/22 -Pain control: PO oxy, APAP PRN, IV fentanyl PRN for breakthrough -Hgb 12.7, Coags WNL on admission -Normotensive, VSS. Hypoxia -Currently on 3 L N.C, satting mid 90s. -Wears N.C at home during nighttime with O2 concentrator, unsure of baseline flow rate. -CXR showed mild edema, normal lung exam -Likely some aspect of chronicity exacerbated by narcotic administration as patient O2 sats were normal prior to admin per EMS PAF -On Apixiban 2.5mg BID - hold, last dose was PM 3/6 -On flecainide - continue -NSR on exam/monitor today -Will consult cardiology to evaluate in anticipation for surgery potentially exacerbating a-fib. CHF CAD HTN - new -Will get echo to evaluate -Will start amlodipine for elevated BPs inpatient -Consult cardiology - appreciate recs. Parkinson's Disease -Carbidopa/levodopa 25-100mg 1.5 tabs QID at home - continue -Ropinriole 1.5mg daily - continue FEN/GI -Maintenance fluids - LR 75 ml/hr -Regular diet, NPO at midnight -Replace electrolytes PRN -Bowel regimen DVT/VTE Risk/Contraindication: Contraindications-Pharm: Other *list below* Other: OR MARYJANE TAPIA DO 08/24/22 0507: Supervisory-Addendum Brief Verification & Attestation Participated in pt care: history, MDM, physical Personally performed: exam, history, MDM, supervision of care Care discussed with: Medical Student Procedures: n/a Results interpretation: Verified all documentation Verification and Attestation of Medical Student E/M Service A medical student performed and documented this service in my presence. I reviewed and verified all information documented by the medical student and made modifications to such information, when appropriate. I personally performed the physical exam and medical decision making. Maryjane Tapia, Aug 24, 2022,05:07 MARILEE STACY Aug 23, 2022 09:30 MARYJANE TAPIA DO Aug 24, 2022 05:07
--- NOTE | 2022-08-23 09:53 | Progress Note - Ortho ---
Progress Note Subjective Date of Exam 08/23/22 Chief Complaint POD #1 IM Nailing of R IT Femur Fracture HPI/Events since last exam doing well, pain better than prior to surgery, ready to try to work with therapy Review of Systems - Allergies: Coded Allergies: Sulfa (Sulfonamide Antibiotics) (Verified Allergy, Unknown, hives, 11/16/19) Home Meds Reported Medications Carbidopa/Levodopa (Carbidopa-Levodopa 25-100 Tab) 25 Mg-100 Mg Tablet, 1 EA PO 0700,1000,1300,1600,1900, TAB 08/21/22 Melatonin (Melatonin) 10 Mg Tablet, 10 MG PO HS, TAB 08/21/22 Multivitamin (Multivitamin) 1 Each Tablet, 1 EACH PO DAILY, TAB 08/21/22 Vitamin B Complex/Folic Acid (B-Complex Tablet) 0.4 Mg Tablet, 1 EA PO DAILY, TAB 08/21/22 Sertraline HCl (Sertraline HCl) 25 Mg Tablet, 25 MG PO DAILY, TAB 08/21/22 Ropinirole HCl (Ropinirole HCl) 2 Mg Tablet, 2 MG PO TID, TAB 08/21/22 Amlodipine Besylate (Amlodipine Besylate) 5 Mg Tablet, 5 MG PO DAILY, TAB 08/21/22 Tramadol HCl (Tramadol HCl) 50 Mg Tablet, 50 MG PO BID PRN for PAIN-MODERATE (5- 7), TAB 03/27/21 Mv-Mn/FA/Vit K/Lycop/Lut/Zeaxa (Ocuvite Eye + Multi Tablet) 1 Each Tablet, 1 EACH PO DAILY, TAB 03/27/21 Ascorbic Acid (Vitamin C) 500 Mg Capsule, 500 MG PO DAILY, CAP 03/27/21 Flecainide Acetate (Flecainide Acetate) 100 Mg Tablet, 50 MG PO BID, TAB TAKES OF A 100MG TAB 03/27/21 Docusate Sodium (Docusate Sodium) 100 Mg Capsule, 100 MG PO BID, CAP 03/27/21 Diazepam (Diazepam) 10 Mg Tablet, 10 MG PO HS, TAB 03/27/21 Lovastatin (Lovastatin) 10 Mg Tablet, 10 MG PO HS, TAB 03/27/21 Apixaban (Eliquis) 2.5 Mg Tablet, 2.5 MG PO BID, TAB 03/27/21 Discontinued Reported Medications Calcium Carbonate (Calcium) 500 Mg Tablet, 500 MG PO DAILY, TAB 03/27/21 Acetaminophen (Tylenol Extra Strength) 500 Mg Tablet, 500 MG PO Q8H PRN for PAIN-MILD (1-4), TAB 03/27/21 Cyanocobalamin (Vitamin B-12) (B-12) 1,000 Mcg Tablet, 1000 MCG PO DAILY, TAB 03/27/21 Zinc Sulfate (Zinc) 50 Mg Tablet, 50 MG PO DAILY, TAB 03/27/21 Ropinirole HCl (Ropinirole HCl) 1 Mg Tablet, 1 MG PO TID, TAB TAKES 1MG + 0.5MG TOGETHER TO EQUAL 1.5MG 03/27/21 Carbidopa/Levodopa (Carbidopa-Levo 25-100 mg Odt) 1 Each Tab.rapdis, 1.5 EACH PO QID, TAB 03/27/21 Ropinirole HCl (Ropinirole HCl) 0.5 Mg Tablet, 0.5 MG PO TID TAKES 1MG + 0.5MG TOGETHER TO EQUAL 1.5MG 03/27/21 Ciprofloxacin HCl (Ciprofloxacin HCl) 500 Mg Tablet, 500 MG PO BID FILLED 03-24-2021 #10/5 DAY SUPPLY 03/27/21 Discontinued Scripts Hydrocodone Bit/Acetaminophen (HYDROcodone/APAP 5 MG/325 MG TAB) 1 Tab Tab, 1 TAB PO Q6H for Pain, #10 TAB 0 Refills Prov:OSMEL PINON MD 01/09/22 Hydrocodone/Acetaminophen (Hydrocodone-Acetamin 5-325 mg) 1 Each Tablet, 1 EACH PO Q4H PRN for PAIN-MODERATE (5-7), #20 TAB Prov:PAOLA CHICAS DO 03/28/21 Objective Exam R Leg: Dressing C/D/I, +DF of ankle, no s/s of DVT Vital Signs Vital Signs Date Time Temp Pulse Resp B/P (MAP) Pulse Ox O2 Delivery O2 Flow Rate FiO2 08/23/22 08:09 36.9 81 18 125/58 (80) 94 Nasal Cannula 3.00 08/23/22 07:41 92 Nasal Cannula 3.00 08/23/22 07:39 97 Nasal Cannula 4.00 08/23/22 07:00 77 08/23/22 03:42 36.2 75 16 113/55 (74) 93 Nasal Cannula 4.00 08/23/22 02:29 91 Nasal Cannula 4.00 08/23/22 01:00 72 08/23/22 00:03 36.6 78 18 109/61 (77) 92 Nasal Cannula 4.00 08/22/22 20:31 93 4.00 08/22/22 20:17 37.3 79 18 111/58 (75) 93 08/22/22 20:05 Nasal Cannula 4.00 08/22/22 19:00 82 08/22/22 15:49 37.4 83 18 122/59 (80) 92 Nasal Cannula 3.00 08/22/22 14:42 37.2 87 18 188/88 (121) 92 Nasal Cannula 4.00 08/22/22 14:30 Nasal Cannula 3.00 08/22/22 14:30 37.1 20 176/96 (122) 96 Nasal Cannula 3.00 08/22/22 14:20 20 172/91 (118) 95 Nasal Cannula 3.00 08/22/22 14:15 OxyMask 3.00 08/22/22 14:10 20 172/91 (118) 95 OxyMask 3.00 08/22/22 14:00 OxyMask 4.00 08/22/22 14:00 20 171/86 (114) 99 OxyMask 3.00 08/22/22 13:50 20 115/68 (84) 100 OxyMask 3.00 08/22/22 13:45 OxyMask 4.00 08/22/22 13:40 20 84/50 (61) 100 OxyMask 5.00 08/22/22 13:30 OxyMask 6.00 08/22/22 13:30 20 79/49 (59) 100 OxyMask 4.00 08/22/22 13:28 37.1 20 74/46 (55) 100 OxyMask 6.00 08/22/22 13:28 OxyMask 6.00 08/22/22 11:37 36.9 82 18 159/87 (111) 93 Nasal Cannula 4.00 I & O 08/23/22 07:00 Intake Total 877 ml Output Total 1275 ml Balance -398 ml Lab Results Laboratory Tests 08/23/22 05:14: White Blood Count 10.0, Red Blood Count 3.94, Hemoglobin 11.3L, Hematocrit 37, Mean Corpuscular Volume 93, Mean Corpuscular Hemoglobin 29, Mean Corpuscular Hemoglobin Concent 31L, Red Cell Distribution Width 14.8H, Platelet Count 135, Mean Platelet Volume 10.7, Immature Granulocyte % (Auto) 1, Neutrophils (%) (Auto) 74, Lymphocytes (%) (Auto) 11L, Monocytes (%) (Auto) 14H, Eosinophils (%) (Auto) 1, Basophils (%) (Auto) 0, Neutrophils # (Auto) 7.4, Lymphocytes # (Auto) 1.1, Monocytes # (Auto) 1.4H, Eosinophils # (Auto) 0.1, Basophils # (Auto) 0.0, Immature Granulocyte # (Auto) 0.1, Sodium Level 138, Potassium Level 4.2, C hloride Level 102, Carbon Dioxide Level 28, Anion Gap 8, Blood Urea Nitrogen 17, Creatinine 0.85, Estimat Glomerular Filtration Rate 67, BUN/Creatinine Ratio 20, Glucose Level 108H, Calcium Level 8.3L, Corrected Calcium 9.1, Total Bilirubin 0.9, Aspartate Amino Transf (AST/SGOT) 15, Alanine Aminotransferase (ALT/SGPT) 7, Alkaline Phosphatase 37L, Total Protein 5.7L, Albumin 3.0L Microbiology 08/21/22 MRSA Screen - Final, Complete MRSA not isolated Assessment and Plan Assessment Right Intertrochanteric Femur Fracture s/p IM Nailing Problem List Right Intertrochanteric Femur Fracture s/p IM Nailing Plan PT/OT DVT Prophylaxis Discussed with patient that I will be out of town until 09/03. Final Diagonsis Right Intertrochanteric Femur Fracture s/p IM Nailing Level of the visit: Level 3 (global) Clinical Quality Measures DVT/VTE Risk/Contraindication: Contraindications-Pharm: Other *list below* Other: OR LITA CHEN MD Aug 23, 2022 09:53
[2022-08-23] MEDS ORDERED: SIMETHICONE 80 MG (MYLICON) CHEW PO PRN (11:00)
--- NOTE | 2022-08-23 11:35 | Occupational Therapy Eval ---
OT Evaluation-General/PLF Medical Diagnosis Admission Date Aug 21, 2022 at 02:39 Medical Diagnosis: IM Nailing of R IT Femur Fracture Onset Date: Aug 22, 2022 Therapy Diagnosis Therapy Diagnosis: s/p POD #1 IM Nailing of R IT Femur Fracture, weakness Height/Weight Height (Feet): 5 Height (Inches): 7.00 Weight (Pounds): 123 Weight (Ounces): 2.0 Precautions Precautions/Isolations: Fall Prevention, Standard Precautions Weight Bear Status Weight Bearing Restriction: Weight Bearing/Tolerated Location Restriction: R LE Referral Referral Reason: Activity Tolerance, Self Care, Evaluation/Treatment Medical History Pertinent Medical History: Atrial Fib, Arthritis, CAD, CVA, HTN, [place], Parkinson's Current History s/p POD #1 IM Nailing of R IT Femur Fracture d/t fall Social History Current Living Status: Spouse (daughter checks in daily) ADL-Prior Level of Function SCALE: Activities may be completed with or without assistive devices. 2-Jaalbjqmkp-eosujpp completes the activity by him/herself with no assistance from a helper. 5-Set-up or Clean-up Assistance-helper sets up or cleans up; patient completes activity. Millis assists only prior to or following the activity. 4-Supervision or Touching Assistance-helper provides verbal cues and/or touching/steadying and/or contact guard assistance as patient completes activity. Assistance may be provided throughout the activity or intermittently. 3-Partial/Moderate Assistance-helper does LESS THAN HALF the effort. Millis lifts, holds or supports trunk or limbs, but provides less than half the effort. 2-Substantial/Maximal Assistance-helper does MORE THAN HALF the effort. Millis lifts or holds trunk or limbs and provides more than half the effort. 5-Botuxghqw-qolzrh does ALL the effort. Patient does none of the effort to complete the activity. Or, the assistance of 2 or more helpers is required for the patient to complete the activity. If activity was not attempted, code reason: 7-Patient Refused. 9-Not Applicable-not attempted and the patient did not perform the activity before the current illness, exacerbation or injury. 10-Not Attempted due to Environmental Limitations-(lack of equipment, weather restraints, etc.). 88-Not Attempted due to Medical Conditions or Safety Concerns. Self Care: Independent Functional Cognition: Independent OT Current Status Subjective Slight delay in responses Mental Status/Objective Patient Orientation: Person, Place, Time, Situation Attachments: Batista Catheter, IV, Oxygen Current Glasses/Contacts: Yes Upper Extremity ROM BUE ROM WFLS Upper Extremity Strength +3/5, unable to position self in sitting to offload pain to R hip ADL-Treatment Eating (QC): 5 (nausea) Oral Hygiene (QC): 5 Shower/Bathe Self (QC): 88 (will need schduled w/ dressing changes) Upper Body Dressing (QC): 4 Lower Body Dressing (QC): 1 On/Off Footwear (QC): 1 Toileting Hygiene (QC): 1 Attempted use of BSC d/t distended abdomen, unsuccessful however maryam care hygiene performed by therapist Education OT Patient Education: Correct positioning, Exercise program, Modified ADL techniques, Progress toward Goal/Update tx plan, Purpose of tx/functional activities, Reviewed precautions, Rehab process, Safety issues, Transfer techniques, Use of adapted equipment Teaching Recipient: Patient, Family (daughter present) Teaching Methods: Demonstration, Discussion Response to Teaching: Reinforcement Needed OT Longterm Goals Dispatch Lead Goals Eating (QC): 6 Oral Hygiene (QC): 6 Toileting Hygiene (QC): 6 Shower/Bathe Self (QC): 4 Upper Body Dressing (QC): 6 Lower Body Dressing (QC): 4 On/Off Footwear (QC): 4 1=Demonstrate adherence to instructed precautions during ADL tasks. 2=Patient will verbalize/demonstrate understanding of assistive devices/m odifications for ADL. 3=Patient will improve strength/tolerance for activity to enable patient to perform ADL's. OT Education/Plan Problem List/Assessment Assessment: Decreased Activ Tolerance, Decreased Safety Aware, Decreased UE Strength, Impaired Bed Mobility, Impaired Coordination, Impaired Funct Balance, Impaired Self-Care Skills Discharge Recommendations Plan/Recommendations: Continue POC Therapy Discharge Recommendati: Post Acute OT Treatment Plan/Plan of Care Treatment,Training & Education: Yes Patient would benefit from OT for education, treatment and training to promote independence in ADL's, mobility, safety and/or upper extremity function for ADL's. Plan of Care: ADL Retraining, Caregiver Training, Functional Mobility, Group Exercise/Act as Ind, UE Funct Exercise/Act Treatment Duration: Sep 01, 2022 Frequency: 3 times per week (3-5 times per week) Estimated Hrs Per Day: .25 hour per day Rehab Potential: Guarded Patient remains up in chair prepared for lunch, all needs met Time Start Time: 10:50 Stop Time: 11:16 DATE: Aug 23, 2022 Total Time Billed (hr/min): 26 Billed Treatment Time YANELI GARRETT 1, 26 min ANGY MALCOLM OT Aug 23, 2022 11:35
--- NOTE | 2022-08-23 11:52 | Physical Therapy Evaluation ---
PT Evaluation-General Medical Diagnosis Admission Date Aug 21, 2022 at 02:39 Medical Diagnosis: IM Nailing of R IT Femur Fracture Onset Date: Aug 22, 2022 Therapy Diagnosis Therapy Diagnosis: generalized weakness/debility Height/Weight Height (Feet): 5 Height (Inches): 7.00 Weight (Pounds): 123 Weight (Ounces): 2.0 Precautions Precautions/Isolations: Fall Prevention, Standard Precautions Weight Bear Status Right Lower Extremity: Right Weight Bearing/Tolerated Left Lower Extremity: Left Full Weight Bearing Referral Physician: Rama Reason for Referral: Evaluation/Treatment Medical History Pertinent Medical History: Atrial Fib, Arthritis, CAD, CVA, HTN, [place], Parkinson's Current History EMS secondary to fall at home Reviewed History: Yes Social History Home: Single Level Current Living Status: Spouse (daughter checks in daily) Prior Prior Level of Function SCALE: Activities may be completed with or without assistive devices. 9-Myjskydsbq-kbivqux completes the activity by him/herself with no assistance from a helper. 5-Set-up or Clean-up Assistance-helper sets up or cleans up; patient completes activity. [place] assists only prior to or following the activity. 4-Supervision or Touching Assistance-helper provides verbal cues and/or touching/steadying and/or contact guard assistance as patient completes activity. Assistance may be provided throughout the activity or intermittently. 3-Partial/Moderate Assistance-helper does LESS THAN HALF the effort. [place] lifts, holds or supports trunk or limbs, but provides less than half the effort. 2-Substantial/Maximal Assistance-helper does MORE THAN HALF the effort. [place] lifts or holds trunk or limbs and provides more than half the effort. 6-Wwxsqqwhr-rjnvvh does ALL the effort. Patient does none of the effort to complete the activity. Or, the assistance of 2 or more helpers is required for the patient to complete the activity. If activity was not attempted, code reason: 7-Patient Refused. 9-Not Applicable-not attempted and the patient did not perform the activity before the current illness, exacerbation or injury. 10-Not Attempted due to Environmental Limitations-(lack of equipment, weather restraints, etc.). 88-Not Attempted due to Medical Conditions or Safety Concerns. Bed Mobility: 6 Transfers (B,C,W/C): 6 Gait: 6 Indoor Mobility (Ambulation): Independent Prior Devices Use: Walker PT Evaluation-Current Subjective Patient agrees to PT. Objective Patient Orientation: Person, Time, Situation Attachments: Oxygen, Batista Catheter, IV ROM/Strength ROM Lower Extremities right LE limited due to pain/left LE WFL Strength Lower Extremities right LE 3-/5 grossly/left LE 3/5 grossly Integumentary/Posture Integumentary refer to nursing notes Bladder Incontinence: Batista Cath Posture kyphotic and trunk flexed Neuromuscular (Tone, Coordination, Reflexes) diminished with all Sensory Vision: Functional Hearing: Impaired Transfers Lying to Sitting/Side of Bed(Q: 1 (x 2) Sit to Stand (QC): 1 (x 2) Chair/Stf-yk-Xrssc Xfer(QC): 1 (x 2) Toilet Transfer (QC): 1 (x 2 (commode)) Gait Does the Patient Walk?: No and Walking Goal IS indicated Walk 10 feet (QC): 88 Balance Sitting Static: Fair Sitting Dynamic: Fair Standing Static: Poor Standing Dynamic: Poor Assessment/Needs Patient will benefit from skilled PT to address functional strength and mobility to improve current LOF. Patient currently requires dependent assist due to pain and weakness. Rehab Potential: Fair PT Gun Perforator Goals Gun Perforator Goals PT Gun Perforator Goals Time Frame: Sep 08, 2022 Roll Left & Right (QC): 3 Sit to Lying (QC): 3 Lying-Sitting on Side/Bed(QC): 3 Sit to Stand (QC): 3 Chair/Cfb-wi-Vwmki Xfer(QC): 3 Toilet Transfer (QC): 3 Walk 10 feet (QC): 3 Walk 50ft with 2 Turns (QC): 3 Walk 150 ft (QC): 3 PT Plan Problem List Problem List: Activity Tolerance, Functional Strength, Safety, Balance, Gait, Transfer, Bed Mobility Treatment/Plan Treatment Plan: Continue Plan of Care Treatment Plan: Bed Mobility, Education, Functional Activity Junior, Functional Strength, Gait, Safety, Therapeutic Exercise, Transfers Treatment Duration: Sep 08, 2022 Frequency: 11 times per week Estimated Hrs Per Day: .5 hour per day Time Time In: 1050 Time Out: 1111 DATE: Aug 23, 2022 Total Billed Treatment Time: 21 Total Billed Treatment 1 visit EVMod 21 min JUAN MANUEL LORENZO PT Aug 23, 2022 11:52
--- NOTE | 2022-08-23 14:34 | Physical Therapy Daily Note ---
PT Daily Note-Current Subjective Patient declined OOB activity. Agrees to PT. Very sleepy. Pain Section J - Health Conditions 1. Rarely or not at all 2. Occasionally 3. Frequently 4. Almost constantly 8. Unable to answer Pain Effect on Sleep: 2 Pain Interference with Therapy: 2 Pain Interference w/Day-to-Day: 2 Mental Status Patient Orientation: Person Attachments: Oxygen, Batista Catheter, IV Transfers SCALE: Activities may be completed with or without assistive devices. 6-Rxrdlwcqax-vtkmcty completes the activity by him/herself with no assistance from a helper. 5-Set-up or Clean-up Assistance-helper sets up or cleans up; patient completes activity. [place] assists only prior to or following the activity. 4-Supervision or Touching Assistance-helper provides verbal cues and/or touching/steadying and/or contact guard assistance as patient completes activity. Assistance may be provided throughout the activity or intermittently. 3-Partial/Moderate Assistance-helper does LESS THAN HALF the effort. [place] lifts, holds or supports trunk or limbs, but provides less than half the effort. 2-Substantial/Maximal Assistance-helper does MORE THAN HALF the effort. [place] lifts or holds trunk or limbs and provides more than half the effort. 9-Wyinigrkz-dcpfox does ALL the effort. Patient does none of the effort to complete the activity. Or, the assistance of 2 or more helpers is required for the patient to complete the activity. If activity was not attempted, code reason: 7-Patient Refused. 9-Not Applicable-not attempted and the patient did not perform the activity before the current illness, exacerbation or injury. 10-Not Attempted due to Environmental Limitations-(lack of equipment, weather restraints, etc.). 88-Not Attempted due to Medical Conditions or Safety Concerns. Weight Bearing Right Lower Extremity: Right Weight Bearing/Tolerated Left Lower Extremity: Left Full Weight Bearing Exercises Supine Ex: Ankle pumps, Heel Slides, Straight leg raise, Hip abd/add Supine Reps: 15 (PROM bilateral LE) Assessment Patient tolerated PROM bilateral LE in bed. PT to increase OOB activity in a.m. PT Usp Goals Senior Sourcing Manager Goals PT Senior Sourcing Manager Goals Time Frame: Sep 08, 2022 Roll Left & Right (QC): 3 Sit to Lying (QC): 3 Lying-Sitting on Side/Bed(QC): 3 Sit to Stand (QC): 3 Chair/Hhr-es-Dfsra Xfer(QC): 3 Toilet Transfer (QC): 3 Walk 10 feet (QC): 3 Walk 50ft with 2 Turns (QC): 3 Walk 150 ft (QC): 3 PT Plan Treatment/Plan Treatment Plan: Continue Plan of Care Treatment Plan: Bed Mobility, Education, Functional Activity Junior, Functional Strength, Gait, Safety, Therapeutic Exercise, Transfers Treatment Duration: Sep 08, 2022 Frequency: 11 times per week Estimated Hrs Per Day: .5 hour per day Time Time In: 1400 Time Out: 1410 DATE: Aug 23, 2022 Total Billed Treatment Time: 10 Total Billed Treatment 1 visit EX 10 min JUAN MANUEL LORENZO PT Aug 23, 2022 14:34
--- NOTE | 2022-08-23 18:27 | Physician Query Clarification ---
Physician Query-General Query to Physician: The medical record reflects the following clinical evidence: Clinical Indicators: "Upon arrival to the ED her O2 saturations were found to be in the 50s-60s% but without any distress/symptoms of being hypoxic" respiratory rate 18 on admission has been mostly 18-20 has been on oxygen since admission 2 to 5 L, O2 sats as low as 89% to 90% (P/F = 178 -188) on the day of admission. Supplemental 02 for greater than 48 hours unable to titrate off Risk Factor(s): No Hx of home 02 or pulmonary Dx. Hx of Parkinsons, CVA with current Hip Fx, advanced age, pain medications Treatment: Continuous 02 up to 5L, Titrate 02, Respiratory monitoring, RT protochol Acute respiratory failure, with hypoxia, present on admission Other explanation of clinical findings Unable to determine (no explanation for clinical findings) Please clarify and document your clinical opinion in the progress notes and discharge summary including the definitive and/or presumptive diagnosis, (suspected or probable), related to the above clinical findings. Please include clinical findings supporting your diagnosis. Ama Colbert, MSN, RN Clinical Sole Scraper [phone] [email or web address] PHYSICIAN RESPONSE: Based on the clinical findings in the record, please respond to the query above on this document as an addendum. Physician Response: Physician Response Acute respiratory failure, with hypoxia, present on admission If you have questions please contact: Edge Cutting Machine Operator: Ext: Thank you for your time and cooperation. Clinical Sole Scraper/Edge Cutting Machine Operator This is a permanent part of the medical record AMA COLBERT Aug 23, 2022 18:27 FLORENCIA TAPIA DO Aug 24, 2022 05:21
[2022-08-23] MEDS: AtorvaSTATin TABLET 10 MG TABLET PO SCH (19:43)
[2022-08-23] MEDS: MELATONIN 10 MG TABLET PO SCH (19:43)
[2022-08-24 03:38] VITALS: BP 114/63
[2022-08-24] MEDS: LACTATED RINGERS 1,000 ML IV SCH (04:33)
[2022-08-24] MEDS: SINEMET 25/100 (CARBIDOPA/LEVODOPA) TAB PO SCH ×2 (05:50→09:50)
[2022-08-24] MEDS: MULTIVIT W/MINERALS TAB (THERAGRAN M) PO SCH (05:50)
[2022-08-24 05:56] LABS: HEMATOCRIT 32 % (35-52); HEMOGLOBIN 9.7 g/dL (11.5-16.0); LYMPHOCYTES # (AUTO) 0.9 10^3/uL (1.0-4.0); MEAN CORPUSCULAR HEMOGLOBIN 28 pg (25-34); MEAN CORPUSCULAR HGB CONC 31 g/dL (32-36); MEAN CORPUSCULAR VOLUME 93 fL (80-99)
[2022-08-24 05:59] LABS: BASOPHILS % (AUTO) 0 % (0-10); EOSINOPHILS # (AUTO) 0.1 10^3/uL (0.0-0.3); EOSINOPHILS % (AUTO) 1 % (0-10); LYMPHOCYTES % (AUTO) 10 % (12-44); MEAN PLATELET VOLUME 10.7 fL (9.0-12.2); MONOCYTES # (AUTO) 1.1 10^3/uL (0.0-1.0); MONOCYTES % (AUTO) 13 % (0-12); NEUTROPHILS # (AUTO) 6.5 10^3/uL (1.8-7.8); NEUTROPHILS % (AUTO) 76 % (42-75); PLATELET COUNT 130 10^3/uL (130-400); WHITE BLOOD COUNT 8.6 10^3/uL (4.3-11.0)
[2022-08-24 06:03] LABS: ALBUMIN 2.7 GM/DL (3.2-4.5)
[2022-08-24 06:04] LABS: CHLORIDE 102 MMOL/L (98-107); SODIUM 137 MMOL/L (135-145)
[2022-08-24 06:05] LABS: CALCIUM 8.3 MG/DL (8.5-10.1)
[2022-08-24 06:06] LABS: GLUCOSE 100 MG/DL (70-105); TOTAL PROTEIN 5.4 GM/DL (6.4-8.2)
[2022-08-24 06:07] LABS: CARBON DIOXIDE 27 MMOL/L (21-32)
[2022-08-24 06:08] LABS: BILIRUBIN,TOTAL 0.8 MG/DL (0.1-1.0)
[2022-08-24 06:10] LABS: ALKALINE PHOSPHATASE 39 U/L (40-136); CREATININE SERUM 0.73 MG/DL (0.60-1.30); GFR ESTIMATED 81
[2022-08-24 06:11] LABS: BUN/CREATININE RATIO 25
[2022-08-24 06:13] LABS: ALANINE AMINOTRANSFERASE < 6 U/L (0-55)
--- NOTE | 2022-08-24 06:51 | Discharge Summary ---
Diagnosis/Chief Complaint Date of Admission Aug 21, 2022 at 02:39 Date of Discharge Discharge Date: Aug 24, 2022 Discharge Diagnosis Assessment: This is an 87 y/o female who presented to the ED after a non-syncopal fall and severe right hip pain who was also found to be hypoxic on arrival Right proximal femur fracture Hypoxia PAF CHF HTN CAD Parkinson's Disease Plan Right proximal femur fracture -Ortho managing -Plan for OR and repair tomorrow 08/22 -Pain control: PO oxy, APAP PRN, IV fentanyl PRN for breakthrough -Hgb 12.7, Coags WNL on admission -Normotensive, VSS. Hypoxia -Currently on 3 L N.C, satting mid 90s. -Wears N.C at home during nighttime with O2 concentrator, unsure of baseline flow rate. -CXR showed mild edema, normal lung exam -Likely some aspect of chronicity exacerbated by narcotic administration as patient O2 sats were normal prior to admin per EMS PAF -On Apixiban 2.5mg BID - hold, last dose was PM 08/20 -On flecainide - continue -NSR on exam/monitor today -Will consult cardiology to evaluate in anticipation for surgery potentially exacerbating a-fib. CHF CAD HTN - new -Will get echo to evaluate -Will start amlodipine for elevated BPs inpatient -Consult cardiology - appreciate recs. Parkinson's Disease -Carbidopa/levodopa 25-100mg 1.5 tabs QID at home - continue -Ropinriole 1.5mg daily - continue FEN/GI -Maintenance fluids - LR 75 ml/hr -Regular diet, NPO at midnight -Replace electrolytes PRN -Bowel regimen Discharge Summary Discharge Physical Examination Allergies: Coded Allergies: Sulfa (Sulfonamide Antibiotics) (Verified Allergy, Unknown, hives, 11/16/19) Vitals & I&Os Vital Signs Date Time Temp Pulse Resp B/P (MAP) Pulse Ox O2 Delivery O2 Flow Rate FiO2 08/24/22 10:31 08/24/22 08:09 36.7 74 20 93 Nasal Cannula 3.00 08/21/22 06:29 36 General Appearance: Alert, Oriented X3, Cooperative Respiratory: Clear to Auscultation Cardiovascular: Regular Rate Psych/Mental Status: Mental Status NL Hospital Course Was the Problem List Reviewed?: Yes This is an 87 y/o female who presented to the ED after a non-syncopal fall after tripping, hitting a wall, and falling down. She was transported by EMS to the ED and given two doses of 50mcg Fentanyl while en route for pain control for severe right hip pain. Pain was improved from this. Upon arrival to the ED her O2 saturations were found to be in the 50s-60s% but without any distress/symptoms of being hypoxic. She was placed on 4 L N.C and reportedly her O2 levels recovered. Further ED workup with CXR and hip XR revealed a right hip fracture and negative CXR. She has a history significant for paroxysmal atrial fibrillation, CHF, and Parkinson's disease. She currently takes Flecainide and apixaban 2.5 mg BID for the atrial fibrillation. Her last dose of Apixaban was the evening of her fall (08/20). She was admitted to the med-surg unit under medicine and ortho was consulted for repair. Ortho is elected to wait until 08/22 to repair the right hip operatively due to recent anticoagulation use. During her stay, cardiology saw her and ordered echo and gave reccomendations for further observation/management of cardiac comorbidities. Post-operatively the patient met post-operative milestones without issue and met criteria for discharge to inpatient rehab unit. She did have acute blood loss anemia and Fe and B12 studies were ordered on day of discharge to be followed up during inpatient rehab stay. Subjective/Interval Pt seen at bedside this AM. She is sitting up. She said she had more issues with pain and is still having some abdominal discomfort but denies N/V. She said she feels if she could sit on the toilet she could use the bathroom and feel better as she has not been able to have a BM since before surgery. She still has a griffith in. Her overall fluid intake has been down a little per nursing and her appetite has been down. She only stood up once with PT yesterday but said it went ok. She denies SOB/, CP, palpitations, or any other problems this AM. Anticipate will move to inpatient rehab later this morning. Labs (last 24 hrs) Laboratory Tests 08/21/22 01:50: White Blood Count 9.8, Red Blood Count 4.45, Hemoglobin 12.7, Hematocrit 41, Mean Corpuscular Volume 92, Mean Corpuscular Hemoglobin 29, Mean Corpuscular Hemoglobin Concent 31L, Red Cell Distribution Width 14.7H, Platelet Count 216, Mean Platelet Volume 9.8, Immature Granulocyte % (Auto) 0, Neutrophils (%) (Auto) 70, Lymphocytes (%) (Auto) 17, Monocytes (%) (Auto) 9, Eosinophils (%) (Auto) 4, Basophils (%) (Auto) 1, Neutrophils # (Auto) 6.9, Lymphocytes # (Auto) 1.7, Monocytes # (Auto) 0.9, Eosinophils # (Auto) 0.3, Basophils # (Auto) 0.1, Immature Granulocyte # (Auto) 0.0, Prothrombin Time 14.5, INR Comment 1.1, Activated Partial Thromboplast Time 29, Sodium Level 145, Potassium Level 3.8, Chloride Level 109H, Carbon Dioxide Level 26, Anion Gap 10, Blood Urea Nitrogen 26H, Creatinine 0.89, Estimat Glomerular Filtration Rate 63, BUN/Creatinine Ratio 29, Glucose Level 103, Calcium Level 8.6, Corrected Calcium 8.7, Magnesium Level 2.1, Total Bilirubin 0.3, Aspartate Amino Transf (AST/SGOT) 21, Alanine Aminotransferase (ALT/SGPT) 11, Alkaline Phosphatase 49, Total Protein 6.9, Albumin 3.9 08/21/22 02:15: Urine Color YELLOW, Urine Clarity CLEAR, Urine pH 6.0, Urine Specific Tea >=1.030, Urine Protein 1+H, Urine Glucose (UA) NEGATIVE, Urine Ketones TRACEH, Urine Nitrite NEGATIVE, Urine Bilirubin NEGATIVE, Urine Urobilinogen 0.2, Urine Leukocyte Esterase NEGATIVE, Urine RBC (Auto) TRACE-IH, Urine RBC 5-10H, Urine WBC RARE, Urine Squamous Epithelial Cells RARE, Urine Crystals NONE, Urine Bacteria NEGATIVE, Urine Casts PRESENT, Urine Hyaline Casts 0-2H, Urine Mucus NEGATIVE, Urine Culture Indicated NO 08/22/22 05:13: White Blood Count 9.4, Red Blood Count 4.53, Hemoglobin 13.1, Hematocrit 42, Mean Corpuscular Volume 92, Mean Corpuscular Hemoglobin 29, Mean Corpuscular Hemoglobin Concent 31L, Red Cell Distribution Width 14.7H, Platelet Count 180, Mean Platelet Volume 10.3, Immature Granulocyte % (Auto) 0, Neutrophils (%) (Auto) 71, Lymphocytes (%) (Auto) 14, Monocytes (%) (Auto) 13H, Eosinophils (%) (Auto) 2, Basophils (%) (Auto) 0, Neutrophils # (Auto) 6.7, Lymphocytes # (Auto) 1.3, Monocytes # (Auto) 1.2H, Eosinophils # (Auto) 0.2, Basophils # (Auto) 0.0, Immature Granulocyte # (Auto) 0.0, Sodium Level 139, Potassium Level 4.4, Chloride Level 103, Carbon Dioxide Level 29, Anion Gap 7, Blood Urea Nitrogen 11, Creatinine 0.76, Estimat Glomerular Filtration Rate 77, BUN/Creatinine Ratio 14, Glucose Level 105, Calcium Level 8.9, Corrected Calcium 9.4, Total Bilirubin 1.0, Aspartate Amino Transf (AST/SGOT) 18, Alanine Aminotransferase (ALT/SGPT) 8, Alkaline Phosphatase 48, Total Protein 6.2L, Albumin 3.4 08/23/22 05:14: White Blood Count 10.0, Red Blood Count 3.94, Hemoglobin 11.3L, Hematocrit 37, Mean Corpuscular Volume 93, Mean Corpuscular Hemoglobin 29, Mean Corpuscular Hemoglobin Concent 31L, Red Cell Distribution Width 14.8H, Platelet Count 135, Mean Platelet Volume 10.7, Immature Granulocyte % (Auto) 1, Neutrophils (%) (Auto) 74, Lymphocytes (%) (Auto) 11L, Monocytes (%) (Auto) 14H, Eosinophils (%) (Auto) 1, Basophils (%) (Auto) 0, Neutrophils # (Auto) 7.4, Lymphocytes # (Auto) 1.1, Monocytes # (Auto) 1.4H, Eosinophils # (Auto) 0.1, Basophils # (Auto) 0.0, Immature Granulocyte # (Auto) 0.1, Sodium Level 138, Potassium Level 4.2, Chloride Level 102, Carbon Dioxide Level 28, Anion Gap 8, Blood Urea Nitrogen 17, Creatinine 0.85, Estimat Glomerular Filtration Rate 67, BUN/Creatinine Ratio 20, Glucose Level 108H, Calcium Level 8.3L, Corrected Calcium 9.1, Total Bilirubin 0.9, Aspartate Amino Transf (AST/SGOT) 15, Alanine Aminotransferase (ALT/SGPT) 7, Alkaline Phosphatase 37L, Total Protein 5.7L, Albumin 3.0L 08/24/22 05:33: White Blood Count 8.6, Red Blood Count 3.41L, Hemoglobin 9.7L, Hematocrit 32L, Mean Corpuscular Volume 93, Mean Corpuscular Hemoglobin 28, Mean Corpuscular Hemoglobin Concent 31L, Red Cell Distribution Width 14.7H, Platelet Count 130, Mean Platelet Volume 10.7, Immature Granulocyte % (Auto) 0, Neutrophils (%) (Auto) 76H, Lymphocytes (%) (Auto) 10L, Monocytes (%) (Auto) 13H, Eosinophils (%) (Auto) 1, Basophils (%) (Auto) 0, Neutrophils # (Auto) 6.5, Lymphocytes # (Auto) 0.9L, Monocytes # (Auto) 1.1H, Eosinophils # (Auto) 0.1, Basophils # (Auto) 0.0, Immature Granulocyte # (Auto) 0.0, Percent Immature Platelet Fraction 4.6, Sodium Level 137, Potassium Level 4.0, Chloride Level 102, Carbon Dioxide Level 27, Anion Gap 8, Blood Urea Nitrogen 18, Creatinine 0.73, Estimat Glomerular Filtration Rate 81, BUN/Creatinine Ratio 25, Glucose Level 100, Calcium Level 8.3L, Corrected Calcium 9.3, Iron Level 19L, Total Bilirubin 0.8, Aspartate Amino Transf (AST/SGOT) 13, Alanine Aminotransferase (ALT/SGPT) < 6, Alkaline Phosphatase 39L, Total Protein 5.4L, Albumin 2.7L, Vitamin B12 Level 276 08/24/22 10:49: Glucometer 136H Microbiology 08/21/22 MRSA Screen - Final, Complete MRSA not isolated Pending Labs Microbiology Date/Time Source Procedure Growth Status 08/21/22 15:15 Nasal MRSA Screen - Final MRSA not isolated Complete Laboratory Tests 08/21/22 01:50: White Blood Count 9.8, Red Blood Count 4.45, Hemoglobin 12.7, Hematocrit 41, Mean Corpuscular Volume 92, Mean Corpuscular Hemoglobin 29, Mean Corpuscular Hemoglobin Concent 31, Red Cell Distribution Width 14.7, Platelet Count 216, Mean Platelet Volume 9.8, Immature Granulocyte % (Auto) 0, Neutrophils (%) (Auto) 70, Lymphocytes (%) (Auto) 17, Monocytes (%) (Auto) 9, Eosinophils (%) (Auto) 4, Basophils (%) (Auto) 1, Neutrophils # (Auto) 6.9, Lymphocytes # (Auto) 1.7, Monocytes # (Auto) 0.9, Eosinophils # (Auto) 0.3, Basophils # (Auto) 0.1, Immature Granulocyte # (Auto) 0.0, Prothrombin Time 14.5, INR Comment 1.1, Activated Partial Thromboplast Time 29, Sodium Level 145, Potassium Level 3.8, Chloride Level 109, Carbon Dioxide Level 26, Anion Gap 10, Blood Urea Nitrogen 26, Creatinine 0.89, Estimat Glomerular Filtration Rate 63, BUN/Creatinine Ratio 29, Glucose Level 103, Calcium Level 8.6, Corrected Calcium 8.7, Magnesium Level 2.1, Total Bilirubin 0.3, Aspartate Amino Transf (AST/SGOT) 21, Alanine Aminotransferase (ALT/SGPT) 11, Alkaline Phosphatase 49, Total Protein 6.9, Albumin 3.9 08/21/22 02:15: Urine Color YELLOW, Urine Clarity CLEAR, Urine pH 6.0, Urine Specific Tea >=1.030, Urine Protein 1+, Urine Glucose (UA) NEGATIVE, Urine Ketones TRACE, Urine Nitrite NEGATIVE, Urine Bilirubin NEGATIVE, Urine Urobilinogen 0.2, Urine Leukocyte Esterase NEGATIVE, Urine RBC (Auto) TRACE-I, Urine RBC 5-10, Urine WBC RARE, Urine Squamous Epithelial Cells RARE, Urine Crystals NONE, Urine Bacteria NEGATIVE, Urine Casts PRESENT, Urine Hyaline Casts 0-2, Urine Mucus NEGATIVE, Urine Culture Indicated NO 08/22/22 05:13: White Blood Count 9.4, Red Blood Count 4.53, Hemoglobin 13.1, Hematocrit 42, Me an Corpuscular Volume 92, Mean Corpuscular Hemoglobin 29, Mean Corpuscular Hemoglobin Concent 31, Red Cell Distribution Width 14.7, Platelet Count 180, Mean Platelet Volume 10.3, Immature Granulocyte % (Auto) 0, Neutrophils (%) (Auto) 71, Lymphocytes (%) (Auto) 14, Monocytes (%) (Auto) 13, Eosinophils (%) (Auto) 2, Basophils (%) (Auto) 0, Neutrophils # (Auto) 6.7, Lymphocytes # (Auto) 1.3, Monocytes # (Auto) 1.2, Eosinophils # (Auto) 0.2, Basophils # (Auto) 0.0, Immature Granulocyte # (Auto) 0.0, Sodium Level 139, Potassium Level 4.4, Chloride Level 103, Carbon Dioxide Level 29, Anion Gap 7, Blood Urea Nitrogen 11, Creatinine 0.76, Estimat Glomerular Filtration Rate 77, BUN/Creatinine Ratio 14, Glucose Level 105, Calcium Level 8.9, Corrected Calcium 9.4, Total Bilirubin 1.0, Aspartate Amino Transf (AST/SGOT) 18, Alanine Aminotransferase (ALT/SGPT) 8, Alkaline Phosphatase 48, Total Protein 6.2, Albumin 3.4 08/23/22 05:14: White Blood Count 10.0, Red Blood Count 3.94, Hemoglobin 11.3, Hematocrit 37, Mean Corpuscular Volume 93, Mean Corpuscular Hemoglobin 29, Mean Corpuscular Hemoglobin Concent 31, Red Cell Distribution Width 14.8, Platelet Count 135, Mean Platelet Volume 10.7, Immature Granulocyte % (Auto) 1, Neutrophils (%) (Auto) 74, Lymphocytes (%) (Auto) 11, Monocytes (%) (Auto) 14, Eosinophils (%) (Auto) 1, Basophils (%) (Auto) 0, Neutrophils # (Auto) 7.4, Lymphocytes # (Auto) 1.1, Monocytes # (Auto) 1.4, Eosinophils # (Auto) 0.1, Basophils # (Auto) 0.0, Immature Granulocyte # (Auto) 0.1, Sodium Level 138, Potassium Level 4.2, Chloride Level 102, Carbon Dioxide Level 28, Anion Gap 8, Blood Urea Nitrogen 17, Creatinine 0.85, Estimat Glomerular Filtration Rate 67, BUN/Creatinine Ratio 20, Glucose Level 108, Calcium Level 8.3, Corrected Calcium 9.1, Total Bilirubin 0.9, Aspartate Amino Transf (AST/SGOT) 15, Alanine Aminotransferase (ALT/SGPT) 7, Alkaline Phosphatase 37, Total Protein 5.7, Albumin 3.0 08/24/22 05:33: White Blood Count 8.6, Red Blood Count 3.41, Hemoglobin 9.7, Hematocrit 32, Mean Corpuscular Volume 93, Mean Corpuscular Hemoglobin 28, Mean Corpuscular Hemoglobin Concent 31, Red Cell Distribution Width 14.7, Platelet Count 130, Mean Platelet Volume 10.7, Immature Granulocyte % (Auto) 0, Neutrophils (%) (Auto) 76, Lymphocytes (%) (Auto) 10, Monocytes (%) (Auto) 13, Eosinophils (%) (Auto) 1, Basophils (%) (Auto) 0, Neutrophils # (Auto) 6.5, Lymphocytes # (Auto) 0.9, Monocytes # (Auto) 1.1, Eosinophils # (Auto) 0.1, Basophils # (Auto) 0.0, Immature Granulocyte # (Auto) 0.0, Percent Immature Platelet Fraction 4.6, Sodium Level 137, Potassium Level 4.0, Chloride Level 102, Carbon Dioxide Level 27, Anion Gap 8, Blood Urea Nitrogen 18, Creatinine 0.73, Estimat Glomerular Filtration Rate 81, BUN/Creatinine Ratio 25, Glucose Level 100, Calcium Level 8.3, Corrected Calcium 9.3, Iron Level 19, Total Bilirubin 0.8, Aspartate Amino Transf (AST/SGOT) 13, Alanine Aminotransferase (ALT/SGPT) < 6, Alkaline Phosphatase 39, Total Protein 5.4, Albumin 2.7, Vitamin B12 Level 276 08/24/22 10:49: Glucometer 136 Discharge Home Medications: Active Scripts Active Reported Carbidopa-Levodopa 25-100 Tab (Carbidopa/Levodopa) 25 Mg-100 Mg Tablet 1 Ea PO 0700,1000,1300,1600,1900 Melatonin 10 Mg Tablet 10 Mg PO HS Multivitamin 1 Each Tablet 1 Each PO DAILY B-Complex Tablet (Vitamin B Complex/Folic Acid) 0.4 Mg Tablet 1 Ea PO DAILY Sertraline HCl 25 Mg Tablet 25 Mg PO DAILY Ropinirole HCl 2 Mg Tablet 2 Mg PO TID Amlodipine Besylate 5 Mg Tablet 5 Mg PO DAILY Tramadol HCl 50 Mg Tablet 50 Mg PO BID PRN Ocuvite Eye + Multi Tablet (Mv-Mn/FA/Vit K/Lycop/Lut/Zeaxa) 1 Each Tablet 1 Each PO DAILY Vitamin C (Ascorbic Acid) 500 Mg Capsule 500 Mg PO DAILY Flecainide Acetate 100 Mg Tablet 50 Mg PO BID TAKES OF A 100MG TAB Docusate Sodium 100 Mg Capsule 100 Mg PO BID Diazepam 10 Mg Tablet 10 Mg PO HS Lovastatin 10 Mg Tablet 10 Mg PO HS Eliquis (Apixaban) 2.5 Mg Tablet 2.5 Mg PO BID Instructions to patient/family Please see electronic discharge instructions given to patient. Diagnosis/Problems Diagnosis/Problems (1) fall (2) Hypoxia Status: Acute (3) Fall on same level Status: Acute Qualifiers: Qualified Codes: W18.30XA - Fall on same level, unspecified, initial encounter (4) Anticoagulated Status: Acute (5) Closed right hip fracture Status: Acute Qualifiers: Qualified Codes: S72.001A - Fracture of unspecified part of neck of right femur, initial encounter for closed fracture (6) Hypertension (7) Parkinson's disease (8) HLD (hyperlipidemia) (9) Paroxysmal atrial fibrillation Clinical Quality Measures DVT/VTE Risk/Contraindication: Contraindications-Pharm: Other *list below* Other: OR FLORENCIA TAPIA DO Aug 24, 2022 06:51
[2022-08-24 08:09] VITALS: BP 133/72
[2022-08-24] MEDS: FLECAINIDE 100 MG (TAMBOCOR) TAB PO SCH (08:13)
[2022-08-24] MEDS: SENNOSIDES 8.6 MG (SENOKOT) TAB PO SCH (08:13)
[2022-08-24] MEDS: DOCUSATE SODIUM 100 MG (COLACE) CAP PO SCH (08:13)
[2022-08-24] MEDS: rOPINIRole 1 MG (REQUIP) TABLET PO SCH (08:13)
[2022-08-24] MEDS: SERTRALINE 50 MG (ZOLOFT) TABLET PO SCH (08:14)
[2022-08-24] MEDS: APIXABAN 2.5 MG (ELIQUIS) TABLET PO SCH (08:14)
[2022-08-24] MEDS: amLODIPine 5 MG (NORVASC) TAB PO SCH (08:14)
--- NOTE | 2022-08-24 09:39 | Cardiology Progress Note ---
Subjective Date Seen by Provider: Aug 24, 2022 Time Seen by Provider: 09:39 Subjective/Events-last exam Patient was seen at bedside, complaining of generalized body ache. Review of Systems General: No Chills, No Night Sweats; Fatigue; No Malaise, No Appetite, No Other HEENT: No Head Aches, No Visual Changes, No Eye Pain, No Ear Pain, No Dysphasia, No Sinus Congestion, No Post Nasal Drip, No Sore Throat, No Other Pulmonary: No Dyspnea, No Cough, No Pleuritic Chest Pain, No Other Cardiovascular: No: Chest Pain, Palpitations, Orthopnea, Paroxysmal Noc. Dyspnea, Edema, Lt Headedness, Other Objective-Cardiology Exam Last Set of Vital Signs Vital Signs 08/21/22 08/24/22 06:29 08:09 Temp 36.7 Pulse 74 Resp 20 B/P (MAP) 133/72 (92) Pulse Ox 93 O2 Delivery Nasal Cannula O2 Flow Rate 3.00 FiO2 36 I&O Intake and Output 08/24/22 00:00 Intake Total 1000 ml Output Total 750 ml Balance 250 ml Intake Oral 1000 ml Output Urine Total 750 ml General: Alert, Oriented X3 HEENT: PERRLA, EOMI Neck: Supple Heart: Regular Rate, Normal S1, Normal S2 Abdomen: Normal Bowel Sounds, Soft, No Tenderness Extremities: No Edema, Normal Pulses, Other (Right hip TTP. Dressing clean and dry over surgical site. ) Skin: No Rashes Psych/Mental Status: Mental Status NL Results Lab Laboratory Tests 08/24/22 05:33 A/P-Cardiology Admission Diagnosis Right Hip Fracture PAF Sinus Node Dysfunction with Bradycardia CAD Assessment/Plan Right femur fracture Status post Intramedullary Nailing of Right Intertrochanteric Femur Fracture on August 22, 2022 Recovering well Nonobstructive coronary artery disease per cardiac catheterization done January 21, 2019. Repeat cardiac catheterization done June 2019 showed tortuous coronaries with nonobstructive disease, continue to monitor. Paroxysmal atrial fibrillation. Previous intolerance to Cardizem secondary to hypotension and sotalol secondary to prolonged QT interval. Currently managed by [facility] [employer] A[employer]. Loop recorder in place and managed with Flecinide 50mg BID and Eliquis 2.5mg BID. Restart Eliquis and monitor H&H Sinus Node Dysfunction with Bradycardia HR 79 today. She is not currently taking any amiodorone. Was recently started on Norvasc 5mg. Continue to monitor History of Dick's palsy Current right facial drop. It is questionable if this is d/t [place] Palsy vs Parkinson's Disease. Hypertension, slightly elevated this morning at 156/75. She is currently on 5mg of Norvasc. Hold amlodipine and monitor blood pressure Continue amlodipine following surgery this afternoon Hyperlipidemia, currently on lovastatin, continue to monitor History of Parkinson's. She is followed by [facility] neurologist and neurologist for this with most recent head and neck MRIs two days ago. Nonobstructive carotid artery stenosis per carotid duplex done February 2019, continue to monitor. ESTRELLA GRECO MD Aug 24, 2022 09:39
--- NOTE | 2022-08-24 11:48 | Progress Note ---
MARILEE STACY 08/24/22 1147: Progress Note Hospital Course/HPI This is an 87 y/o female who presented to the ED after a non-syncopal fall after tripping, hitting a wall, and falling down. She was transported by EMS to the ED and given two doses of 50mcg Fentanyl while en route for pain control for severe right hip pain. Pain was improved from this. Upon arrival to the ED her O2 saturations were found to be in the 50s-60s% but without any distress/symptoms of being hypoxic. She was placed on 4 L N.C and reportedly her O2 levels recovered. Further ED workup with CXR and hip XR revealed a right hip fracture and negative CXR. She has a history significant for paroxysmal atrial fibrillation, CHF, and Parkinson's disease. She currently takes Flecainide and apixaban 2.5 mg BID for the atrial fibrillation. Her last dose of Apixaban was the evening of her fall (08/20). She was admitted to the med-surg unit under medicine and ortho was consulted for repair. Ortho is elected to wait until 08/22 to repair the right hip operatively due to recent anticoagulation use. During her stay, cardiology saw her and ordered echo and gave reccomendations for further observation/management of cardiac comorbidities. Post-operatively the patient met post-operative milestones without issue and met criteria for discharge to inpatient rehab unit. She did have acute blood loss anemia and Fe and B12 studies were ordered on day of discharge to be followed up during in patient rehab stay. Subjective/Interval Pt seen at bedside this AM. She is sitting up. She said she had more issues with pain and is still having some abdominal discomfort but denies N/V. She said she feels if she could sit on the toilet she could use the bathroom and feel better as she has not been able to have a BM since before surgery. She still has a griffith in. Her overall fluid intake has been down a little per nursing and her appetite has been down. She only stood up once with PT yesterday but said it went ok. She denies SOB/, CP, palpitations, or any other problems this AM. Anticipate will move to inpatient rehab later this morning. Vital Signs Date Time Temp Pulse Resp B/P (MAP) Pulse Ox O2 Delivery O2 Flow Rate FiO2 08/24/22 10:31 08/24/22 08:09 36.7 74 20 133/72 (92) 93 Nasal Cannula 3.00 08/24/22 08:00 Nasal Cannula 3.00 08/24/22 07:23 93 Nasal Cannula 3.00 08/24/22 07:00 76 08/24/22 03:38 37.1 65 18 114/63 (80) 95 Nasal Cannula 3.00 08/24/22 01:00 71 08/23/22 23:52 36.7 72 18 113/67 (82) 98 Nasal Cannula 3.00 08/23/22 22:52 Nasal Cannula 3.00 08/23/22 20:15 37.1 86 16 130/62 (84) 93 Nasal Cannula 3.00 08/23/22 19:45 Nasal Cannula 3.00 08/23/22 19:43 93 Nasal Cannula 3.00 08/23/22 19:00 90 08/23/22 16:06 36.9 85 16 137/63 (87) 93 Nasal Cannula 3.00 08/23/22 15:00 92 Nasal Cannula 3.00 08/23/22 13:00 91 I & O 08/24/22 07:00 Intake Total 1050 ml Output Total 800 ml Balance 250 ml Physical Exam General: Alert, Oriented X3 HEENT: PERRLA, EOMI Neck: Supple Heart: Regular Rate, Normal S1, Normal S2 Abdomen: Normal Bowel Sounds, Soft, No Tenderness Extremities: No Edema, Normal Pulses, Other (Right hip TTP. Dressing clean and dry over surgical site. ) Psych/Mental Status: Mental Status NL Laboratory Tests 08/23/22 05:14 08/24/22 05:33 Assessment: This is an 87 y/o female who presented to the ED after a non-syncopal fall and severe right hip pain who was also found to be hypoxic on arrival, now HD#3, post-op day 2 Right proximal femur fracture Hypoxia PAF CHF HTN CAD Parkinson's Disease Plan Right proximal femur fracture - POD#2 -Ortho managing -Pain control: PO oxy, APAP PRN, IV fentanyl PRN for breakthrough -Hgb 12.7 --> 13.1 --> 11.3 --> 9.7 (08/24) Coags WNL -Will check Fe, B12 levels; likely will supplement -Plan to move to Inpatient rehab today -Normotensive, VSS. Hypoxia - chronic -Currently on 3 L N.C, satting low 90s. -Wears N.C at home during nighttime with O2 concentrator, unsure of baseline flow rate. -CXR showed mild edema, normal lung exams during hospital course. -Likely some aspect of chronicity exacerbated by narcotic administration as patient O2 sats were normal prior to admin per EMS -Can do humidified N.C after OR as patient complaining of dryness/soreness since being on O2 here PAF -On Apixiban 2.5mg BID - cardiology resumed today -On flecainide - continue -NSR on exam/monitor today -Cardiology following; appreciate recs. CHF CAD HTN - new -Echo with EF of 50-55%, pulm artery pressures 35-40mmHg, severe concentric LVH -Consult cardiology - appreciate recs. -Resuming amlodipine today. Parkinson's Disease -Carbidopa/levodopa 25-100mg 1.5 tabs QID at home - continue -Ropinriole 1.5mg daily - continue FEN/GI -Maintenance fluids - None -Regular diet -Replace electrolytes PRN -Bowel regimen, protonix DVT Prophylaxis: SCDs, apixiban. Dispo: Stable. Will DC to inpatient rehab unit today. MARYJANE MORALES DO 08/25/22 0614: Supervisory-Addendum Brief Verification & Attestation Participated in pt care: history, MDM, physical Personally performed: exam, history, MDM, supervision of care Care discussed with: Medical Student Procedures: n/a Results interpretation: Verified all documentation Verification and Attestation of Medical Student E/M Service A medical student performed and documented this service in my presence. I reviewed and verified all information documented by the medical student and made modifications to such information, when appropriate. I personally performed the physical exam and medical decision making. Maryjane Morales, Aug 25, 2022,06:14 MARILEE STACY Aug 24, 2022 11:47 MARYJANE MORALES DO Aug 25, 2022 06:14
== END 2022-08-24 10:40 | DRG 480 ==
LOC: EDUNIT# 01:34 → ER 01:36 → 4TH 02:39
PROVIDERS: ADMIT Internal Medicine; ATTEND Internal Medicine
PROC: 0QH636Z Insertion of Intramedullary Internal Fixation Device into Right Upper Femur, Percutaneous Approach (ICD-10-PCS; principal; 2022-08-22 12:21)
DX: S72.101A Unspecified trochanteric fracture of right femur, initial encounter for closed fracture (principal); J96.01 Acute respiratory failure with hypoxia; W18.30XA Fall on same level, unspecified, initial encounter; G20 Parkinson's disease; E78.5 Hyperlipidemia, unspecified; I48.0 Paroxysmal atrial fibrillation; I50.9 Heart failure, unspecified; I25.10 Atherosclerotic heart disease of native coronary artery without angina pectoris; I11.0 Hypertensive heart disease with heart failure; Z86.73 Personal history of transient ischemic attack (TIA), and cerebral infarction without residual deficits; M19.90 Unspecified osteoarthritis, unspecified site; G89.29 Other chronic pain; M54.9 Dorsalgia, unspecified; F41.9 Anxiety disorder, unspecified; I49.5 Sick sinus syndrome; I65.29 Occlusion and stenosis of unspecified carotid artery
CPT/HCPCS: 36415; 51702; 71045; 76000; 80053; 81000; 82607; 82947; 83540; 83735; 85025; 85610; 85730; 87081; 90715; 93005; 93306; 94760

== ENCOUNTER 2022-08-24 09:13 | Inpatient (IN) | payer MEDICARE, OTHER ==
[~2022-08-24 09:13] MED LIST changes: +MELA10TA2 PO; +MULT-1136 PO; +ROPI2TAB6 PO; +SERT-412 PO; +VITA0.4T2 PO
--- NOTE | 2022-08-24 12:00 | PM&R Post Admission Assessment ---
PM&R Date of Visit: Aug 24, 2022 Time of Visit: 12:00 History of Present Illness CC: Debility following right hip fracture HPI: This is an 87yoWF clinic patient of mine who has a h/o Parkinson's and COPD night time O2 dependent along with AF who presented to ARU in need of recovery following a fall at home and sustaining a right hip fracture which was repaired by Dr Ontiveros. She had no issues during 4th floor admit stay except she was hypoxic when she arrived to ARU due to no O2 supplement in place. Labs remain stable. Med-surg DC summary: This is an 87 y/o female who presented to the ED after a non-syncopal fall after tripping, hitting a wall, and falling down. She was transported by EMS to the ED and given two doses of 50mcg Fentanyl while en route for pain control for severe right hip pain. Pain was improved from this. Upon arrival to the ED her O2 saturations were found to be in the 50s-60s% but without any distress/symptoms o f being hypoxic. She was placed on 4 L N.C and reportedly her O2 levels recovered. Further ED workup with CXR and hip XR revealed a right hip fracture and negative CXR. She has a history significant for paroxysmal atrial fibrillation, CHF, and Parkinson's disease. She currently takes Flecainide and apixaban 2.5 mg BID for the atrial fibrillation. Her last dose of Apixaban was the evening of her fall (08/20). She was admitted to the med-surg unit under medicine and ortho was consulted for repair. Ortho is elected to wait until 08/22 to repair the right hip operatively due to recent anticoagulation use. During her stay, cardiology saw her and ordered echo and gave reccomendations for further observation/management of cardiac comorbidities. Post-operatively the patient met post-operative milestones without issue and met criteria for discharge to inpatient rehab unit. She did have acute blood loss anemia and Fe and B12 studies were ordered on day of discharge to be followed up during inpatient rehab stay. Past Yrrgbsj-Yiigde-Cibxwx Hx Past Med/Social Hx: Reviewed Nursing Past Med/Soc Hx, Reviewed and Corrections made Patient Social History Marrital Status: Employed/Student: retired Alcohol Use: Denies Use Smoking Status: Former Smoker Former Smoker, Quit: Jun 17, 1999 Type Used: Cigarettes Recent Hopitalizations: No Immunizations Up To Date Tetanus Booster (TDap): Less than 5yrs Pediatric: Yes Date of Pneumonia Vaccine: Feb 20, 2016 Date of Influenza Vaccine: Jun 10, 2019 Seasonal Allergies Seasonal Allergies: Yes Past Medical History Surgeries: Abdominal, Hysterectomy, Orthopedic Respiratory: COPD Currently Using CPAP: No Currently Using BIPAP: No Cardiac: Atrial Fibrillation, High Cholesterol, Hypertension Neurological: Parkinson's Disease Reproductive: No Sexually Transmitted Disease: No Hysterectomy Musculoskeletal: Osteoporosis Psychosocial: Anxiety, Depression History of Blood Disorders: No Family History Cardiovascular disease 19 FATHER Hypertension 19 FATHER No Pertinent Family Hx PM&R Allergy/Meds/Data Review Allergies Coded Allergies: Sulfa (Sulfonamide Antibiotics) (Verified Allergy, Unknown, hives, 11/16/19) Home Medications Scheduled Amlodipine Besylate (Amlodipine Besylate), 5 MG PO DAILY, (Reported) Apixaban (Eliquis), 2.5 MG PO BID, (Reported) Ascorbic Acid (Vitamin C), 500 MG PO DAILY, (Reported) Carbidopa/Levodopa (Carbidopa-Levodopa 25-100 Tab), 1 EA PO 0700,1000,1300,1600,1900, (Reported) Diazepam (Diazepam), 10 MG PO HS, (Reported) Docusate Sodium (Docusate Sodium), 100 MG PO BID, (Reported) Flecainide Acetate (Flecainide Acetate), 50 MG PO BID, (Reported) Lovastatin (Lovastatin), 10 MG PO HS, (Reported) Melatonin (Melatonin), 10 MG PO HS, (Reported) Multivitamin (Multivitamin), 1 EACH PO DAILY, (Reported) Mv-Mn/FA/Vit K/Lycop/Lut/Zeaxa (Ocuvite Eye + Multi Tablet), 1 EACH PO DAILY, (Reported) Ropinirole HCl (Ropinirole HCl), 2 MG PO TID, (Reported) Sertraline HCl (Sertraline HCl), 25 MG PO DAILY, (Reported) Vitamin B Complex/Folic Acid (B-Complex Tablet), 1 EA PO DAILY, (Reported) Scheduled PRN Tramadol HCl (Tramadol HCl), 50 MG PO BID PRN for PAIN-MODERATE (5-7), (Reported) Discontinued Medications Acetaminophen (Tylenol Extra Strength), 500 MG PO Q8H PRN for PAIN-MILD (1-4), (Reported) Discontinued Reason: No Longer Taking Calcium Carbonate (Calcium), 500 MG PO DAILY, (Reported) Discontinued Reason: No Longer Taking Carbidopa/Levodopa (Carbidopa-Levo 25-100 mg Odt), 1.5 EACH PO QID, (Reported) Discontinued Reason: No Longer Taking Ciprofloxacin HCl (Ciprofloxacin HCl), 500 MG PO BID, (Reported) Discontinued Reason: No Longer Taking Cyanocobalamin (Vitamin B-12) (B-12), 1,000 MCG PO DAILY, (Reported) Discontinued Reason: No Longer Taking Hydrocodone Bit/Acetaminophen (HYDROcodone/APAP 5 MG/325 MG TAB), 1 TAB PO Q6H Discontinued Reason: No Longer Taking Hydrocodone/Acetaminophen (Hydrocodone-Acetamin 5-325 mg), 1 EACH PO Q4H PRN for PAIN-MODERATE (5-7) Discontinued Reason: No Longer Taking Ropinirole HCl (Ropinirole HCl), 0.5 MG PO TID, (Reported) Discontinued Reason: No Longer Taking Ropinirole HCl (Ropinirole HCl), 1 MG PO TID, (Reported) Discontinued Reason: No Longer Taking Zinc Sulfate (Zinc), 50 MG PO DAILY, (Reported) Discontinued Reason: No Longer Taking Current Medications Current Medications Reviewed Review of Systems Constitutional: see HPI, malaise, weakness EENTM: no symptoms reported Respiratory: dyspnea on exertion Cardiovascular: no symptoms reported Gastrointestinal: constipation Genitourinary: no symptoms reported Musculoskeletal: joint pain Skin: no symptoms reported Psychiatric/Neurological: Anxiety, Depressed All Other Systems Reviewed Negative Unless Noted: Yes Physical Exam Physical Exam Vital Signs Capillary Refill : Height, Weight, BMI Height: 5'7.00" Weight: 123lbs. 2.0oz. [id number]; 20.22 BMI Method:Stated General Appearance: No Apparent Distress, WD/WN, Chronically ill, Thin Eyes: Bilateral Eye Normal Inspection, Bilateral Eye PERRL HEENT: PERRL/EOMI, Normal ENT Inspection, Pharynx Normal Neck: Full Range of Motion, Normal Inspection, Non Tender, Supple, Carotid Bruit Respiratory: Chest Non Tender, Lungs Clear, No Accessory Muscle Use, No Respiratory Distress, Decreased Breath Sounds Cardiovascular: Regular Rate, Rhythm, No Edema, No Gallop, No JVD, No Murmur, Normal Peripheral Pulses Gastrointestinal: Normal Bowel Sounds, No Organomegaly, No Pulsatile Mass, Non Tender, Soft Back: Normal Inspection, No CVA Tenderness, No Vertebral Tenderness Extremity: Normal Capillary Refill, Normal Inspection, Normal Range of Motion (except right leg), Non Tender, No Calf Tenderness, No Pedal Edema Neurologic/Psychiatric: Alert, Oriented x3, 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 Norm as Tested, Abnormal Gait, Depressed Affect, Motor Weakness (generalized with right leg weakness) Skin: Normal Color, Warm/Dry Lymphatic: No Adenopathy PM&R Medical Assessment & Plan REHAB/MEDICAL ASSESSMENT AND PLAN: REHAB IMPAIRMENT GROUP: Right hip fracture ETIOLOGIC DIAGNOSIS: Right hip fracture The comorbidities that impact the patients function and/or functional outcome by: osteoporosis, PAF, PD, fall risk, frail status, hypoxia REHAB PLAN: The patient is being admitted to our comprehensive inpatient rehabilitation facility and can tolerate the intensity of service consisting of at least: 180 minutes of therapy a day, 5 out of 7 days a week Rehab treatment will consist of: PT OT will focus on regaining function with use of AD in order to return home and perform independent ADL's and ambulatory capabilities The patient/family has a good understanding of our discharge process and will benefit from an interdisciplinary inpatient rehabilitation program. The patient has potential to make improvement and is in need of at least two of the following multidisciplinary therapies including but not limited to physical, occupational, speech, and prosthetics and orthotics. Additionally the patient will need services from respiratory, nutritional services, wound care, psychology, etc. (Customize this to each patient). Given the patients complex condition and risk of further medical complications, rehabilitation services cannot be safely or effectively provided at a lower level of care such as a snf facility. BARRIERS TO DISCHARGE: PD and fall risk ESTIMATED LOS: 10 days DISPOSITION: Home RELEVANT CHANGES SINCE PREADMISSION SCREENING: I have compared the patients medical and functional status at the time of the preadmission screening and there are: no changes PROGNOSIS: Fair REHABILITATION GOALS: 1. PT OT will focus on regaining function with use of AD in order to return home and perform independent ADL's and ambulatory capabilities All the above goals were reviewed with the patient and he/she is in agreement. By signing this document, I acknowledge that I have personally performed a full physical examination on this patient within 24 hours of admission to this inpatient rehabilitation facility and have determined the patient to be able to tolerate the above course of treatment at an intensive level for a reasonable period of time. I will be completing a detailed individualized Plan of Care for this patient by day #4 of the patients stay based upon the Preadmission Screen, the Post-Admission Evaluation, and the therapy evaluations. Admission Dx/Comorbidities: (1) right hip fracture Assessment/Plan Assessment and Plan Assess & Plan/Chief Complaint Right proximal femur fracture Hypoxia PAF CHF HTN CAD Parkinson's Disease Plan Right proximal femur fracture -Ortho managing -Pain control: PO oxy, APAP PRN, IV fentanyl PRN for breakthrough -Hgb 12.7, Coags WNL on admission -Normotensive, VSS. Hypoxia -Currently on 3 L N.C, satting mid 90s. -Wears N.C at home during nighttime with O2 concentrator, unsure of baseline flow rate. -CXR showed mild edema, normal lung exam -Likely some aspect of chronicity exacerbated by narcotic administration as patient O2 sats were normal prior to admin per EMS PAF -On Apixiban 2.5mg BID - hold, last dose was PM 3/6 -On flecainide - continue CHF CAD HTN - new Parkinson's Disease -Carbidopa/levodopa 25-100mg 1.5 tabs QID at home - continue -Ropinriole 1.5mg daily - continue FLORENCIA TAPIA DO Aug 24, 2022 12:00
[2022-08-24] MEDS ORDERED: guaiFENesin/CODEINE (ROBITUSSIN AC) 10ML UDC PO PRN (12:15)
[2022-08-24] MEDS ORDERED: CALCIUM CARBONATE 500 MG (TUMS) TAB.CHEW PO PRN ×2 (12:15)
[2022-08-24] MEDS ORDERED: FLEET ENEMA ADULT 1 EA BTL PR PRN (12:15)
[2022-08-24] MEDS ORDERED: diphenhydrAMINE 25 MG TAB (BENADRYL) PO PRN ×2 (12:15)
[2022-08-24] MEDS ORDERED: MILK OF MAGNESIA 400 MG/5 ML 30 ML UDC PO PRN (12:15)
[2022-08-24] MEDS ORDERED: ALPRAZolam 0.25 MG (XANAX) TAB PO PRN (12:15)
[2022-08-24] MEDS ORDERED: LOPERAMIDE 2 MG (IMODIUM) TABLET PO PRN (12:15)
[2022-08-24] MEDS ORDERED: diphenhydrAMINE 50 MG/ML INJ (BENADRYL) IVP PRN (12:15)
[2022-08-24] MEDS ORDERED: ACETAMINOPHEN 325 MG TABLET PO PRN ×2 (12:15)
[2022-08-24] MEDS ORDERED: ONDANSETRON 4 MG/2 ML (SDV) Z0FRAN IV PRN (12:15)
[2022-08-24] MEDS ORDERED: LACTULOSE SYRUP 10GM/15ML (ENULOSE) 30ML UDC PO PRN ×2 (12:15)
[2022-08-24] MEDS ORDERED: BISACODYL 10 MG SUPP (DULCOLAX) PR PRN ×2 (12:15)
[2022-08-24] MEDS ORDERED: ANTACID SUSP 30 ML UDC (MYLANTA) PO PRN (12:15)
[2022-08-24] MEDS ORDERED: fentaNYL INJ 100 MCG/2 ML AMP IV PRN (12:15)
[2022-08-24] MEDS ORDERED: ONDANSETRON 4 MG (ZOFRAN) ORAL DISSOLVE TAB PO PRN ×2 (12:15)
[2022-08-24] MEDS ORDERED: polyethylene glycoL POWDER 17 GM (MIRALAX) PACK PO PRN (12:15)
[2022-08-24] MEDS ORDERED: DOCUSATE SODIUM 100 MG (COLACE) CAP PO PRN (12:15)
[2022-08-24] MEDS ORDERED: MELATONIN 3 MG TABLET PO PRN (12:15)
[2022-08-24] MEDS ORDERED: SIMETHICONE 80 MG (MYLICON) CHEW PO PRN (12:15)
--- NOTE | 2022-08-24 12:15 | Speech Therapy Progress Note ---
Therapy Progress Note 1200: The clinician received cognitive linguistic evaluation orders on the patient in room 230 and reviewed the patient's chart. The clinician evaluated the patient for the oropharyngeal swallow following a CVA in 2016. 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 Following the prior evaluation, the patient was recommended a regular consistency diet with thin liquids. The patient returns following an orthopedic injury with a known medical history significant for CVA, Blanchard' Palsy, and Parkinson's disease. Due to the patient's prior medical history, the clinician discussed the patient's current speech, language, cognitive, and oropharyngeal swallowing skills with the patient and three family members. The patient and family denied acute concerns with the patient's above noted skills. The patient does report nausea and the RN is notified. At this time, skilled speech pathology services do not appear warranted. Please re-consult if speech pathology concerns arise. VIRIDIANA GONZALEZ Aug 24, 2022 12:15
[2022-08-24] MEDS: rOPINIRole 1 MG (REQUIP) TABLET PO SCH ×2 (12:48→21:03)
[2022-08-24 12:49] VITALS: BP 150/79
--- NOTE | 2022-08-24 12:56 | Occupational Therapy Eval ---
OT Evaluation-General/PLF Medical Diagnosis Admission Date Aug 24, 2022 at 11:18 Medical Diagnosis: s/p R IM nail Onset Date: Aug 22, 2022 Therapy Diagnosis Therapy Diagnosis: decreased ADL status Height/Weight Height (Feet): 5 Height (Inches): 7.00 Weight (Pounds): 123 Weight (Ounces): 2.0 Referral Physician: Andrew Referral Reason: Evaluation/Treatment Medical History Pertinent Medical History: Atrial Fib, Arthritis, CAD, CVA, HTN, AR, Parkinson's Additional Medical History afib, CHF, PKD, CVA, arthritis, anxiety Current History fall s/p R IM nail 08/22/2022. Transfer to COU 08/24 Social History Home: Single Level Current Living Status: Spouse Entry Into Home: Ramp ADL-Prior Level of Function SCALE: Activities may be completed with or without assistive devices. 0-Wzksmwygdt-kqybckh completes the activity by him/herself with no assistance from a helper. 5-Set-up or Clean-up Assistance-helper sets up or cleans up; patient completes activity. [place] assists only prior to or following the activity. 4-Supervision or Touching Assistance-helper provides verbal cues and/or touching/steadying and/or contact guard assistance as patient completes activity. Assistance may be provided throughout the activity or intermittently. 3-Partial/Moderate Assistance-helper does LESS THAN HALF the effort. [place] lifts, holds or supports trunk or limbs, but provides less than half the effort. 2-Substantial/Maximal Assistance-helper does MORE THAN HALF the effort. [place] lifts or holds trunk or limbs and provides more than half the effort. 9-Thlpovwbl-aynsmj does ALL the effort. Patient does none of the effort to complete the activity. Or, the assistance of 2 or more helpers is required for the patient to complete the activity. If activity was not attempted, code reason: 7-Patient Refused. 9-Not Applicable-not attempted and the patient did not perform the activity before the current illness, exacerbation or injury. 10-Not Attempted due to Environmental Limitations-(lack of equipment, weather restraints, etc.). 88-Not Attempted due to Medical Conditions or Safety Concerns. ADL PLOF Comments Pt reports IND with ADLs and functional mobility at OF, using FWW only outside on longer walks around pond. Pt has a walk in shower with SC, and walk in bath tub. Self Care: Independent Functional Cognition: Independent DME/Equipment: Bath Chair, Shower, Tall Toilet, Tub (walk in) OT Current Status Subjective Pt in chair 2 family and 1 friend present. Pt agreeable to OT Tx, but difficulty keeping eyes open during evaluation. Mental Status/Objective Patient Orientation: Person, Place, Time, Situation Current Glasses/Contacts: Yes Hearing Aids: No Dentures/Partials: Yes Hand Dominance: Right Upper Extremity ROM RUE shoulder flexion to approx 90 degrees, LUE to approx 150 degrees. This is pt's PLOF Upper Extremity Coordination WFL Upper Extremity Sensation WFL Upper Extremity Strength grossly 3/5 ADL-Treatment Eating (QC): 5 Oral Hygiene (QC): 5 Shower/Bathe Self (QC): 1 Upper Body Dressing (QC): 5 Lower Body Dressing (QC): 1 On/Off Footwear (QC): 1 (Pt unable to reach feet to complete) Toileting Hygiene (QC): 1 Other Treatments Pt in recliner, agreeable to OT evaluation. Pt provided information about PLOF and home set up, family assisted with information as needed. Pt attempted footwear, very slow movements, pt unable to doff/don socks at this time due to being unable to reach feet. Post tx, pt in recliner, call light in reach and all needs met. Education OT Patient Education: Correct positioning, Energy conservation, Modified ADL techniques, Progress toward Goal/Update tx plan, Purpose of tx/functional activities, Rehab process Teaching Recipient: Patient Teaching Methods: Discussion Response to Teaching: Verbalize Understanding BIMS CAM BIMS Expression of Ideas and Wants: Without Difficulty Understanding Verbal Content: Understands Brief Interview/Mental Status: Yes IRF GARY BIMS: IRF GARY BIMS Response (Comments) Value Repitition of Three Words Three 3 Recalls Socks Yes, No Cue Required 2 Recalls Blue Yes, No Cue Required 2 Recalls Bed No, Could Not Recall 0 Year Correct 3 Month Accurate Within 5 Days 2 Day Correct 1 Total 13 Should Staff Asses. Mental [address] No CAM Mental Status Change/Baseline: 0 Inattention: 0 Disorganized thinkin Altered level of consciousness: 2 OT Short Term Goals Short Term Goals Time Frame: Sep 07, 2022 Shower/bathe self: 4 Lower body dressin Putting on/taking off footwear: 4 OT Detention Goals Monitoring Manager Goals Time Frame: Sep 21, 2022 Eating (QC): 6 Oral Hygiene (QC): 6 Toileting Hygiene (QC): 6 Shower/Bathe Self (QC): 5 Upper Body Dressing (QC): 6 Lower Body Dressing (QC): 6 On/Off Footwear (QC): 6 Additional Goals: 1-Demonstrate ADL Tasks, 2-Verbalize Understanding, 3- ImproveStrength/Junior 1=Demonstrate adherence to instructed precautions during ADL tasks. 2=Patient will verbalize/demonstrate understanding of assistive devices/modifications for ADL. 3=Patient will improve strength/tolerance for activity to enable patient to perform ADL's. OT Education/Plan Problem List/Assessment Assessment: Decreased Activ Tolerance, Decreased UE Strength, Impaired Funct Balance, Impaired I ADL's, Impaired Self-Care Skills Discharge Recommendations Plan/Recommendations: Continue POC Treatment Plan/Plan of Care Patient would benefit from OT for education, treatment and training to promote independence in ADL's, mobility, safety and/or upper extremity function for ADL's. Plan of Care: ADL Retraining, Functional Mobility, Group Exercise/Act as Ind, UE Funct Exercise/Act Treatment Duration: Sep 21, 2022 Frequency: At least 5 of 7 days/Wk (IRF) Estimated Hrs Per Day: 1.5 hours per day Agreement: Yes Rehab Potential: Fair Time Start Time: 11:30 Stop Time: 12:00 DATE: Aug 24, 2022 Total Time Billed (hr/min): 30 Billed Treatment Time 1, EVM (15'), ADL (15') VASHTI DUARTE OT Aug 24, 2022 12:56
--- NOTE | 2022-08-24 13:05 | Physical Therapy Evaluation ---
PT Evaluation-General Medical Diagnosis Admission Date Aug 24, 2022 at 11:18 Medical Diagnosis: s/p R IM nail Onset Date: Aug 22, 2022 Therapy Diagnosis Therapy Diagnosis: debility, impaired gait & functional mobility, decr. activity doug., pain Height/Weight Height (Feet): 5 Height (Inches): 7.00 Weight (Pounds): 123 Weight (Ounces): 2.0 Precautions Precautions/Isolations: Fall Prevention, Standard Precautions Weight Bear Status Right Lower Extremity: Right Weight Bearing/Tolerated Referral Physician: Andrew Reason for Referral: Evaluation/Treatment Medical History Pertinent Medical History: Atrial Fib, Arthritis, CAD, CVA, HTN, [place], [place] inson's Additional Medical History Dick's palsy (R), sleep apnea Reviewed History: Yes Social History Home: Single Level Current Living Status: Entry Into Home: Ramp PT Steps Into Home: 0 PT Steps Inside Home: 0 Ramp with (B) rails to enter/exit home. Supportive daughters - patient states 1 stays with her occasionally. DME available at home per daughter - walkers, canes, scooter (not patient's). Prior Prior Level of Function SCALE: Activities may be completed with or without assistive devices. 8-Hxlzuraejf-piesumz completes the activity by him/herself with no assistance from a helper. 5-Set-up or Clean-up Assistance-helper sets up or cleans up; patient completes activity. [place] assists only prior to or following the activity. 4-Supervision or Touching Assistance-helper provides verbal cues and/or touching/steadying and/or contact guard assistance as patient completes activity. Assistance may be provided throughout the activity or intermittently. 3-Partial/Moderate Assistance-helper does LESS THAN HALF the effort. [place] lifts, holds or supports trunk or limbs, but provides less than half the effort. 2-Substantial/Maximal Assistance-helper does MORE THAN HALF the effort. [place] lifts or holds trunk or limbs and provides more than half the effort. 7-Fvhyeixmb-mtckio does ALL the effort. Patient does none of the effort to complete the activity. Or, the assistance of 2 or more helpers is required for the patient to complete the activity. If activity was not attempted, code reason: 7-Patient Refused. 9-Not Applicable-not attempted and the patient did not perform the activity before the current illness, exacerbation or injury. 10-Not Attempted due to Environmental Limitations-(lack of equipment, weather restraints, etc.). 88-Not Attempted due to Medical Conditions or Safety Concerns. Bed Mobility: 6 Transfers (B,C,W/C): 6 (no device in the home.) Gait: 6 (no device in the home transfers) Stairs: 5 Wheelchair Mobility: 9 Indoor Mobility (Ambulation): Independent Stairs: Not [place] Prior Devices Use: Walker Prior Device Use: FWW for community only. Would walk around pond with FWW, used cart for grocery shopping. Did not use FWW in the home. PT Evaluation-Current Subjective Patient fell and fracutured (R) hip at home checking to see if back door was locked - (L) ankle is fused and she "caught it" and fell. Does not use FWW in the home -- only in the community. States she does wear O2 at night only. Pain Numeric Pain Scale: 8 Location Body Site: Hip Section J - Health Conditions 1. Rarely or not at all 2. Occasionally 3. Frequently 4. Almost constantly 8. Unable to answer Pain Effect on Sleep: 2 Pain Interference with Therapy: 4 Pain Interference w/Day-to-Day: 4 Pt/Family Goals Patient wishes to return home with . Objective Patient Orientation: Person, Place, Situation Attachments: Oxygen, Batista Catheter O2 at 3L per nc. O2 sats 94% on 3L sitting in recliner ROM/Strength ROM Upper Extremities deferred to OT ROM Lower Extremities Impaired mobility (L) ankle -- old fx with fusion. Able to stand with (L) foot flat on floor. (R) hip ROM impaired due to post-surgical pain. Strength Upper Extremities Deferred to OT Strength Lower Extremities (L) ankle 3+/5 but within limited ROM (fusion). (L) knee extension 4/5, (L) knee flexon 4/5. (L) hip flexion 3-/5, (L) hip abduction 3-/5, (L) hip adduction 3/5. (R) ankle 4/5 DF/PF, (R) knee extension 3/5, (R) knee flexion 3/5, (R) hip flexion 2-/5, (R) hip abduction2-/5, (R) hip adduction 2-/5 Integumentary/Posture Integumentary Reddened buttocks -- had been sitting in recliner for ~ 2 hours at time of eval. Bladder Incontinence: Batista Cath Sensory Vision: Wears Glasses Hearing: Functional Hand Dominance: Right Sensation Right Lower Extremit: Impaired Sensation Left Lower Extremity: Impaired Sensation Lower Extremities Verbalizes impaired sensation in (B) feet (pre-morbid) and backs of (B) calfs. Transfers Roll Left & Right (QC): 4 (Min (A) to roll with bedrail.) Sit to Lying (QC): 1 (2 person max (A)) Lying to Sitting/Side of Bed(Q: 1 (2 person assist) Sit to Stand (QC): 3 (able to initiate sit>stand, then required mod (A) to reach upright position in standing to FWW) Chair/Tct-km-[place] Xfer(QC): 3 (Min-Mod assist of 1 to scoot feet to (L) then back up to EOB using FWW) Toilet Transfer (QC): 88 Car Transfer (QC): 88 Gait Does the Patient Walk?: Yes Mode of Locomotion: Walk Anticipated Mode of Locomotion: Both Walk 10 feet (QC): 88 (Patient ambulated forward 4 steps with FWW and mod (A) /cues to walker use and stepping strategies. Patient unable to walk 10' due to strength limitations, activity tolerance limitations and pain (rated as "30" (R) hip).) Walk 50 ft with 2 Turns(QC): 88 Walk 150 ft (QC): 88 Walking 10ft/uneven surface-QC: 88 Gait Assistive Device: FWW Comments/Gait Description Exceptionally slow odalis and short stride length (B). Wheelchair Training Does the Pt Use a Wheelchair?: No Wheel 50 ft with 2 turns (QC): 88 Wheel 150 ft (QC): 88 Stairs 1 Step (curb) (QC): 88 4 Steps (QC): 88 12 Steps (QC): 88 Not attempted to due inability to walk 10' and pain 30/10 with upright standing/attempted gait. Balance Sitting Static: Good Sitting Dynamic: Fair Standing Static: Fair Standing Dynamic: Poor Picking up an Object (QC): 88 Assessment/Needs 87 year old female who is 2 days post IM nail of (R) hip due to fx from fall at home. Had episode of being unable to rouse earlier this a.m. - improved with O2 use and patient now on 3L per n/c with sats at 94%. Patient remains drowsy this afternoon and has high c/o pain -- 8/10 at rest, 30/10 with standing. Patient has significant mobility deficits post operatively with all aspects of functional mobility and gait, and requires ARU therapy interventions to maximize strength, mobility, and improve safety in preparation for return home with and family support. Rehab Potential: Fair Equipment Needs FWW and possibly w/c. PT Short Term Goals Short Term Goals Time Frame: Aug 31, 2022 Roll Left & Right: 5 Sit to lyin Lying to sitting on side of be: 3 Sit to stand: 4 Chair/bye-fg-dbkwp transfer: 4 Toilet transfer: 4 Car transfer: 4 Walk 10 feet: 3 Walk 50 feet with two turns: 3 Walk 150 feet: 3 Walking 10ft on uneven surface: 3 1 step (curb): 3 4 steps: 3 12 steps: 9 Picking up objects: 3 Does pt use a wc or scooter: No PT Skilled Nursing Goals Bevel Operator Goals PT Bevel Operator Goals Time Frame: Aug 31, 2022 Roll Left to Right (QC): 6 Sit to Lying (QC): 5 Lying-Sitting on Side/Bed(QC): 5 Sit to Stand (QC): 5 Chair/Ero-ib-Alsaf Xfer(QC): 5 Toilet/Commode Transfer (QC): 5 Car Transfer (QC): 5 Does the Patient Walk: Yes Walk 10 feet (QC): 5 Walk 10ft-Uneven Surface(QC): 5 Walk 50ft with 2 Turns (QC): 5 Walk 150 ft (QC): 5 Does the Pt use WC or Scooter?: No Wheel 50 feet with 2 turns (QC: 9 Wheel 150 feet: 9 1 Step (curb) (QC): 5 4 Steps (QC): 5 12 Steps (QC): 9 Picking up an Object (QC): 5 PT Plan Problem List Problem List: Activity Tolerance, Functional Strength, Balance, Gait, Transfer, Bed Mobility, ROM Treatment/Plan Treatment Plan: Continue Plan of Care Treatment Plan: Bed Mobility, Education, Functional Activity Junior, Functional Strength, Group Therapy, Gait, Safety, Therapeutic Exercise, Transfers Treatment Duration: Aug 31, 2022 Frequency: At least 5 of 7 days/Wk (IRF) Estimated Hrs Per Day: 1.5 hours per day Patient and/or Family Agrees t: Yes Safety Risks/Education Patient Education: Transfer Techniques Discharge Recommendations Plan Home with services and family support Equpiment Recommendations-D/C: Front Wheeled Walker, Manual Wheelchair Time Time In: 1240 Time Out: 1324 DATE: Aug 24, 2022 Total Billed Treatment Time: 27 Total Billed Treatment Evaluation: 27' in: 12:40, out12:57, In 1:14, out 1:24 Denise Naranjo PT Aug 24, 2022 13:05
[2022-08-24 13:48] VITALS: BP 150/79
--- NOTE | 2022-08-24 13:51 | Occupational Ther Daily Note ---
OT Current Status-Daily Note Subjective Pt alert but sleeping, sitting in recliner. Pt agrees to therapy. Co-treat with PT ([id number]), skills of 2 clinicians required to decrease fall risk, increase overall mobility and activity tolerance. PT focusing on standing, ambulation and mobility while OT focusing on ADLs, functional mobility and B UE placement during mobility. Mental Status/Objective Patient Orientation: Person, Place, Time, Situation Attachments: Batista Catheter, IV, Oxygen ADL-Treatment Pt agrees to sponge bath. Max A for standing with 2nd person assist to manipulate FWW for safety. Pt able to bathe upper body and upper legs in sitti ng then assist to cleanse buttock in standing, assist to stand and pt cleansed maryam area with B UE's. Pt requires set up for oral care(dentures) then cleanses and places by self. Max A for lower body clothing and footwear. Set up for upper body dressing. Pt demonstrates need of 2 person assist to complete toileting. Pt educated on lower body dressing AE. 2 person assist for EOB <--> supine and scooting up in bed. Rolls side to side with 1 person assist. See PT notes for ambulation and standing progress. After therapy, pt lying in bed with call light/phone in reach. All needs met in room. Therapy Code Descriptions/Definitions Functional [place] Measure: 0=Not Assessed/NA 4=Minimal Assistance 1=Total Assistance 5=Supervision or Setup 2=Maximal Assistance 6=Modified [place] 3=Moderate Assistance 7=Complete IndependenceSCALE: Activities may be completed with or without assistive devices. 7-Xpvchmgkwe-nrsrooe completes the activity by him/herself with no assistance from a helper. 5-Set-up or Clean-up Assistance-helper sets up or cleans up; patient completes activity. [place] assists only prior to or following the activity. 4-Supervision or Touching Assistance-helper provides verbal cues and/or touching/steadying and/or contact guard assistance as patient completes act ivity. Assistance may be provided throughout the activity or intermittently. 3-Partial/Moderate Assistance-helper does LESS THAN HALF the effort. [place] lifts, holds or supports trunk or limbs, but provides less than half the effort. 2-Substantial/Maximal Assistance-helper does MORE THAN HALF the effort. [place] lifts or holds trunk or limbs and provides more than half the effort. 0-Nzortuuxz-fxgaul does ALL the effort. Patient does none of the effort to complete the activity. Or, the assistance of 2 or more helpers is required for the patient to complete the activity. If activity was not attempted, code reason: 7-Patient Refused. 9-Not Applicable-not attempted and the patient did not perform the activity before the current illness, exacerbation or injury. 10-Not Attempted due to Environmental Limitations-(lack of equipment, weather restraints, etc.). 88-Not Attempted due to Medical Conditions or Safety Concerns. Eating (QC): 5 Oral Hygiene (QC): 5 Shower/Bathe Self (QC): 1 Upper Body Dressing (QC): 5 Lower Body Dressing (QC): 1 On/Off Footwear: 2 Toileting Hygiene (QC): 1 OT Short Term Goals Short Term Goals Time Frame: Sep 07, 2022 Shower/bathe self: 4 Lower body dressin Putting on/taking off footwear: 4 OT Site Engineer Goals Site Engineer Goals Time Frame: Sep 21, 2022 Acute change in mental status: 0 Inattention: 0 Disorganized thinkin Altered level of consciousness: 2 Eating (QC): 6 Oral Hygiene (QC): 6 Toileting Hygiene (QC): 6 Shower/Bathe Self (QC): 5 Upper Body Dressing (QC): 6 Lower Body Dressing (QC): 6 On/Off Footwear (QC): 6 Additional Goals: 1-Demonstrate ADL Tasks, 2-Verbalize Understanding, 3- ImproveStrength/Junior 1=Demonstrate adherence to instructed precautions during ADL tasks. 2=Patient will verbalize/demonstrate understanding of assistive devices/modifications for ADL. 3=Patient will improve strength/tolerance for activity to enable patient to perform ADL's. OT Education/Plan Problem List/Assessment Assessment: Decreased Activ Tolerance, Decreased UE Strength, Impaired Bed Mobility, Impaired Coordination, Impaired Funct Balance, Impaired I ADL's, Impaired Self-Care Skills Discharge Recommendations Plan/Recommendations: Continue POC Treatment Plan/Plan of Care Patient would benefit from OT for education, treatment and training to promote independence in ADL's, mobility, safety and/or upper extremity function for ADL's. Plan of Care: ADL Retraining, Functional Mobility, Group Exercise/Act as Ind, UE Funct Exercise/Act Treatment Duration: Sep 21, 2022 Frequency: At least 5 of 7 days/Wk (IRF) Estimated Hrs Per Day: 1.5 hours per day Agreement: Yes Rehab Potential: Fair Time Start Time: 12:30 (1257) Stop Time: 12:40 (1350) DATE: Aug 24, 2022 Total Time Billed (hr/min): 63 Billed Treatment Time 1 visit-FA 1 ([id number]) 1 visit-ADL 3 (40 min) FA 1 (13 min) ([id number]-salcoop with PT), ([id number]-kxfetamjsd) ASTER ALEJANDRE Aug 24, 2022 13:51
[2022-08-24] MEDS: SINEMET 25/100 (CARBIDOPA/LEVODOPA) TAB PO SCH ×3 (14:14→21:03)
--- NOTE | 2022-08-24 15:14 | Physical Therapy Daily Note ---
PT Daily Note-Current Subjective Pt. agrees to Rx but shares that she is not sure how much she can do as she is tired and in pain corby with activity, corby gait. After ambulation from bed to lift chair pt. c/o pain at "20 /10" in right leg and hip and requested pain meds. Pt. and family share that pt. does sleep in a bed in flat position but bc of mul tiple other orthopedic problems ie TSR, TKR, Hx: pelvic Fx pt uses a lift recline chair at home. Pt states she has used a FWW before but only [place] "[place]". Pain Numeric Pain Scale: 10-Worst Possible Pain Location: Right Location Body Site: Hip Pain Description: Pressure Section J - Health Conditions 1. Rarely or not at all 2. Occasionally 3. Frequently 4. Almost constantly 8. Unable to answer Pain Effect on Sleep: 2 Pain Interference with Therapy: 4 Pain Interference w/Day-to-Day: 4 Appearance Pt. noted to have slight chorea like involuntary movement of head, neck and trunk during Rx mostly noticed at rest Mental Status Patient Orientation: Person, Place, Time, Situation, Normal For Age Attachments: Batista Catheter, Other-See Comments (telemetry) Transfers SCALE: Activities may be completed with or without assistive devices. 8-Iucsgojkqe-cnimzgf completes the activity by him/herself with no assistance from a helper. 5-Set-up or Clean-up Assistance-helper sets up or cleans up; patient completes activity. [place] assists only prior to or following the activity. 4-Supervision or Touching Assistance-helper provides verbal cues and/or touching/steadying and/or contact guard assistance as patient completes activity. Assistance may be provided throughout the activity or intermittently. 3-Partial/Moderate Assistance-helper does LESS THAN HALF the effort. [place] lifts, holds or supports trunk or limbs, but provides less than half the effort. 2-Substantial/Maximal Assistance-helper does MORE THAN HALF the effort. [place] lifts or holds trunk or limbs and provides more than half the effort. 8-Dtdxqlhci-ulacxw does ALL the effort. Patient does none of the effort to complete the activity. Or, the assistance of 2 or more helpers is required for the patient to complete the activity. If activity was not attempted, code reason: 7-Patient Refused. 9-Not Applicable-not attempted and the patient did not perform the activity before the current illness, exacerbation or injury. 10-Not Attempted due to Environmental Limitations-(lack of equipment, weather restraints, etc.). 88-Not Attempted due to Medical Conditions or Safety Concerns. Roll Left & Right (QC): 3 Lying to Sitting/Side of Bed(Q: 3 Sit to Stand (QC): 3 Weight Bearing Right Lower Extremity: Right Weight Bearing/Tolerated Gait Training Does the Patient Walk?: Yes Gait Assistive Device: FWW 5 ft bed to recliner mod assist requiring assist to advance the waker for pt, turn walker and min to mod assist for stability and alignment, kyphotic head down posture , pt tending to wt bear on left forearm on FWW on left and extended arm on right, FWW perhaps needs to be shorter for 3-11 Rx. Pt. mostly scooting feet twisting style to advance them toward the chair. Pt. was instructed in using UEs to offset wt bearing on RLE during an attempted "clear the floor" type step. This was difficult for her. Pt. sat in lift recline chair which was brought to her room, Exercises Supine Ex: Ankle pumps, Quad Set, Glut sets, Heel Slides, Hip abd/add Supine Reps: 12 gentle exercise with assistance as needed for abd and HS Treatments bed mob, TRFs, gait, therex as above, pt was oriented to use of lift recline chair as well as call yang and lights and how to order meal etc. Nursing contacted to request pain meds Assessment Current Status: Good Progress pt. gives good effort, pain and fatigue limiting her progress today PT Short Term Goals Short Term Goals Time Frame: Aug 31, 2022 Roll Left & Right: 5 Sit to lyin Lying to sitting on side of be: 3 Sit to stand: 4 Chair/uhg-bm-wznzy transfer: 4 Toilet transfer: 4 Car transfer: 4 Walk 10 feet: 3 Walk 50 feet with two turns: 3 Walk 150 feet: 3 Walking 10ft on uneven surface: 3 1 step (curb): 3 4 steps: 3 12 steps: 9 Picking up objects: 3 Does pt use a wc or scooter: No PT Prison Goals Tv Host Goals PT Tv Host Goals Time Frame: Aug 31, 2022 Roll Left & Right (QC): 6 Sit to Lying (QC): 5 Lying-Sitting on Side/Bed(QC): 5 Sit to Stand (QC): 5 Chair/Noi-wm-Bhpiv Xfer(QC): 5 Toilet Transfer (QC): 5 Car Transfer (QC): 5 Does the Patient Walk: Yes Walk 10 feet (QC): 5 Walk 50ft with 2 Turns (QC): 5 Walk 150 ft (QC): 5 Walking 10ft on Uneven Surface: 5 1 Step (curb) (QC): 5 4 Steps (QC): 5 12 Steps (QC): 9 Picking up an Object (QC): 5 Does the Pt use WC or Scooter?: No Wheel 50 feet with 2 turns (QC: 9 Wheel 150 feet: 9 PT Plan Treatment/Plan Treatment Plan: Continue Plan of Care Treatment Plan: Bed Mobility, Education, Functional Activity Junior, Functional Strength, Group Therapy, Gait, Safety, Therapeutic Exercise, Transfers Treatment Duration: Aug 31, 2022 Frequency: At least 5 of 7 days/Wk (IRF) Estimated Hrs Per Day: 1.5 hours per day Patient and/or Family Agrees t: Yes Safety Risks/Education Patient Education: Gait Training, Transfer Techniques, Correct Positioning, Disease Process, Safety Issues Teaching Recipient: Patient Teaching Methods: Demonstration, Discussion Response to Teaching: Verbalize Understanding, Return Demonstration, Reinforcement Needed Time Time In: 1425 Time Out: 1510 DATE: Aug 24, 2022 Total Billed Treatment Time: 45 Total Billed Treatment 1,GT16m,EX14m,FA15m UMANG KIM PTA Aug 24, 2022 15:14
[2022-08-24 20:15] VITALS: BP 114/57
[2022-08-24] MEDS ORDERED: SENNA W/DOCUSATE (SENOKOT S) TABLET PO SCH (21:00)
[2022-08-24] MEDS ORDERED: DOCUSATE SODIUM 100 MG (COLACE) CAP PO SCH (21:00)
[2022-08-24] MEDS: DOCUSATE SODIUM 100 MG (COLACE) CAP PO SCH (21:03)
[2022-08-24] MEDS: AtorvaSTATin TABLET 10 MG TABLET PO SCH (21:04)
[2022-08-24] MEDS: SENNOSIDES 8.6 MG (SENOKOT) TAB PO SCH (21:04)
[2022-08-24] MEDS: FLECAINIDE 100 MG (TAMBOCOR) TAB PO SCH (21:04)
[2022-08-24] MEDS: APIXABAN 2.5 MG (ELIQUIS) TABLET PO SCH (21:04)
[2022-08-24] MEDS: polyethylene glycoL POWDER 17 GM (MIRALAX) PACK PO SCH (21:07)
[2022-08-25] MEDS: SINEMET 25/100 (CARBIDOPA/LEVODOPA) TAB PO SCH ×5 (05:39→18:30)
[2022-08-25] MEDS: MULTIVIT W/MINERALS TAB (THERAGRAN M) PO SCH (05:39)
[2022-08-25 05:57] LABS: BASOPHILS % (AUTO) 0 % (0-10); EOSINOPHILS % (AUTO) 0 % (0-10); HEMATOCRIT 35 % (35-52); HEMOGLOBIN 10.8 g/dL (11.5-16.0); LYMPHOCYTES # (AUTO) 0.6 10^3/uL (1.0-4.0); LYMPHOCYTES % (AUTO) 7 % (12-44); MEAN CORPUSCULAR HEMOGLOBIN 29 pg (25-34); MEAN CORPUSCULAR HGB CONC 31 g/dL (32-36); MEAN CORPUSCULAR VOLUME 93 fL (80-99); MEAN PLATELET VOLUME 10.2 fL (9.0-12.2); MONOCYTES # (AUTO) 0.7 10^3/uL (0.0-1.0); MONOCYTES % (AUTO) 9 % (0-12); NEUTROPHILS # (AUTO) 6.9 10^3/uL (1.8-7.8); NEUTROPHILS % (AUTO) 84 % (42-75); PLATELET COUNT 160 10^3/uL (130-400); WHITE BLOOD COUNT 8.2 10^3/uL (4.3-11.0)
[2022-08-25 06:05] LABS: ALBUMIN 3.3 GM/DL (3.2-4.5); CHLORIDE 99 MMOL/L (98-107); POTASSIUM 4.4 MMOL/L (3.6-5.0); SODIUM 137 MMOL/L (135-145)
[2022-08-25 06:08] LABS: GLUCOSE 108 MG/DL (70-105); TOTAL PROTEIN 6.7 GM/DL (6.4-8.2)
[2022-08-25 06:09] LABS: BILIRUBIN,TOTAL 0.9 MG/DL (0.1-1.0); CARBON DIOXIDE 30 MMOL/L (21-32)
[2022-08-25 06:11] LABS: ALKALINE PHOSPHATASE 63 U/L (40-136); CREATININE SERUM 0.76 MG/DL (0.60-1.30); GFR ESTIMATED 77
[2022-08-25 06:12] LABS: BUN/CREATININE RATIO 29
[2022-08-25 06:14] LABS: ALANINE AMINOTRANSFERASE < 6 U/L (0-55)
[2022-08-25 06:32] LABS: ELLIPT/OVALOCYTES SLIGHT; LYMPHOCYTES % (MANUAL) 7 %; MONOCYTES % (MANUAL) 5 %; NEUTROPHILS % (MANUAL) 88 %
[2022-08-25 07:30] VITALS: BP 167/79
--- NOTE | 2022-08-25 08:55 | PM&R Progress Note ---
Subjective HPI/CC On Admission Date Seen by Provider: Aug 25, 2022 Time Seen by Provider: 12:00 Subjective/Events-last exam 08/25/2022: Settling in well Maintained on O2 Monitoring closely Appears fatigued and frail Review of Systems General: Fatigue, Malaise Musculoskeletal: leg pain Objective Exam Vital Signs Vital Signs Date Time Temp Pulse Resp B/P (MAP) Pulse Ox O2 Delivery O2 Flow Rate FiO2 08/26/22 01:27 96 Nasal Cannula 3.00 08/26/22 01:25 76 144/80 (101) 08/25/22 19:49 36.9 20 08/24/22 13:48 32 Capillary Refill : General Appearance: No Apparent Distress, WD/WN, Chronically ill, Thin HEENT: PERRL/EOMI, Normal ENT Inspection, Pharynx Normal Neck: Full Range of Motion, Normal Inspection, Non Tender, Supple, Carotid Bruit Respiratory: Chest Non Tender, Lungs Clear, No Accessory Muscle Use, No Respiratory Distress, Decreased Breath Sounds Cardiovascular: Regular Rate, Rhythm, No Edema, No Gallop, No JVD, No Murmur, Normal Peripheral Pulses Gastrointestinal: Normal Bowel Sounds, No Organomegaly, No Pulsatile Mass, Non Tender, Soft Back: Normal Inspection, No CVA Tenderness, No Vertebral Tenderness Extremity: Normal Capillary Refill, Normal Inspection, Normal Range of Motion (except right leg), Non Tender, No Calf Tenderness, No Pedal Edema Neurologic/Psychiatric: Alert, Oriented x3, retaining room cutter II-XII Norm as Tested, Abnormal Gait, Depressed Affect, Motor Weakness (generalized with right leg weakness) Skin: Normal Color, Warm/Dry Lymphatic: No Adenopathy Results/Procedures Lab Patient resulted labs reviewed. FIM Transfers Therapy Code Descriptions/Definitions Functional [place] Measure: 0=Not Assessed/NA 4=Minimal Assistance 1=Total Assistance 5=Supervision or Setup 2=Maximal Assistance 6=Modified [place] 3=Moderate Assistance 7=Complete IndependenceSCALE: Activities may be completed with or without assistive devices. 3-Ebrntrnyvp-rkcnyvs completes the activity by him/herself with no assistance from a helper. 5-Set-up or Clean-up Assistance-helper sets up or cleans up; patient completes activity. [place] assists only prior to or following the activity. 4-Supervision or Touching Assistance-helper provides verbal cues and/or touching/steadying and/or contact guard assistance as patient completes activity. Assistance may be provided throughout the activity or intermittently. 3-Partial/Moderate Assistance-helper does LESS THAN HALF the effort. [place] lifts, holds or supports trunk or limbs, but provides less than half the effort. 2-Substantial/Maximal Assistance-helper does MORE THAN HALF the effort. [place] lifts or holds trunk or limbs and provides more than half the effort. 3-Axozagdag-wpqtrz does ALL the effort. Patient does none of the effort to complete the activity. Or, the assistance of 2 or more helpers is required for the patient to complete the activity. If activity was not attempted, code reason: 7-Patient Refused. 9-Not Applicable-not attempted and the patient did not perform the activity before the current illness, exacerbation or injury. 10-Not Attempted due to Environmental Limitations-(lack of equipment, weather restraints, etc.). 88-Not Attempted due to Medical Conditions or Safety Concerns. Roll Left to Right (QC): 3 Sit to Lying (QC): 1 (2 person max (A)) Sit to Stand (QC): 3 Chair/Nte-hx-Ojsdi Xfer(QC): 3 (Min-Mod assist of 1 to scoot feet to (L) then back up to EOB using FWW) Car Transfer (QC): 88 Gait Training Does the Patient Walk?: Yes Walk 10 feet (QC): 88 (Patient ambulated forward 4 steps with FWW and mod (A) /cues to walker use and stepping strategies. Patient unable to walk 10' due to strength limitations, activity tolerance limitations and pain (rated as "30" (R) hip).) Walk 50 ft with 2 Turns(QC): 88 Walk 150 ft (QC): 88 Walking 10ft/uneven surface-QC: 88 Gait Assistive Device: FWW Wheelchair Training Does the Pt Use a Wheelchair?: No Wheel 50 ft with 2 turns (QC): 88 Wheel 150 ft (QC): 88 Stair Training 1 Step (curb) (QC): 88 4 Steps (QC): 88 12 Steps (QC): 88 Balance Picking up an Object (QC): 88 ADL-Treatment Eating (QC): 5 Oral Hygiene (QC): 5 Shower/Bathe Self (QC): 1 Upper Body Dressing (QC): 5 Lower Body Dressing (QC): 1 On/Off Footwear (QC): 2 Toileting Hygiene (QC): 1 Assessment/Plan Assessment and Plan Assess & Plan/Chief Complaint Right proximal femur fracture Hypoxia PAF CHF HTN CAD Parkinson's Disease Plan Right proximal femur fracture -Ortho managing -Pain control: PO oxy, APAP PRN, IV fentanyl PRN for breakthrough -Hgb 12.7, Coags WNL on admission -Normotensive, VSS. Hypoxia -Currently on 3 L N.C, satting mid 90s. -Wears N.C at home during nighttime with O2 concentrator, unsure of baseline flow rate. -CXR showed mild edema, normal lung exam -Likely some aspect of chronicity exacerbated by narcotic administration as patient O2 sats were normal prior to admin per EMS PAF -On Apixiban 2.5mg BID - hold, last dose was PM 08/20 -On flecainide - continue CHF CAD HTN - new Parkinson's Disease -Carbidopa/levodopa 25-100mg 1.5 tabs QID at home - continue -Ropinriole 1.5mg daily - continue 08/25/2022: Monitor closely Impulsive (1) right hip fracture FLORENCIA TAPIA DO Aug 25, 2022 08:55
--- NOTE | 2022-08-25 08:55 | Individualized Plan of Care ---
Individualized Plan of Care Rehab Nursing IPOC Order Admission Date Aug 24, 2022 at 11:18 Current Orders Orders Admission Arrival Bed Request (08/24/22 11:18) Admission Order(Inpt,Obs,Sdc) (08/24/22 12:01) Vital Signs: Per Unit Policy ( 08,16,00 (08/24/22 12:01) Noel Sharma 09,21 (08/24/22 12:01) Sequential Compression Device (08/24/22 12:01) Customer Account Specialist-Inpt Rehab Con (08/24/22 12:01) Rehab Nursing Orders-Ipoc (08/24/22 12:01) Physical Therapy Rehab Orders (08/24/22 12:01) Occupational Therapy Rehab Ord (08/24/22 12:) Speech Therapy Rehab Orders (08/24/22 12:01) Cbc With Automated Diff (08/25/22 06:00) Comprehensive Metabolic Panel (08/25/22 06:00) Precautions (Aru) (08/24/22 12:01) Weekly Weight WEEK (08/24/22 12:01) Rehab-Intensity Of Therapy (08/24/22 12:01) Initiate Admission Nursing Pro .admission (08/24/22 12:01) Alprazolam Tablet (Xanax Tablet) (08/24/22 12:15) Calcium Carbonate Chew Tablet (Antacid C (08/24/22 12:15) Diphenhydramine Tablet (Benadryl Tablet) (08/24/22 12:15) Docusate Sodium Capsule (Colace Capsule) (08/24/22 21:00) Docusate Sodium Capsule (Colace Capsule) (08/24/22 12:15) Bisacodyl Suppository (Dulcolax Supposit (08/24/22 12:15) Lactulose Oral Solution (Enulose Oral So (08/24/22 12:15) Na Phos/Na Biphos Enema (Fleet Enema Timi (08/24/22 12:15) Guaifenesin/Codeine Syrup (Robitussin Ac (08/24/22 12:15) Loperamide Tablet (Imodium Tablet) (08/24/22 12:15) Melatonin Tablet (Melatonin Tablet) (08/24/22 12:15) Polyethylene Glycol Powder Pkt (Miralax (08/24/22 21:00) Ondansetron Oral Dissolve Tab (Zofran (08/24/22 12:15) Senna S Tablet (Senokot S Tablet) (08/24/22 21:00) Acetaminophen Tablet/Caplet (Tylenol T (08/24/22 12:15) Code/Resuscitation (08/24/22 12:01) Initiate Admission Nursing Pro .admission (08/24/22 12:01) Code/Resuscitation (08/24/22 12:04) Dressing Order (Intervention) DAILY (08/24/22 12:04) Follow-Up Appointment (08/24/22 12:04) Incentive Spirometry (Nursing) Q2H (08/24/22 12:04) Oxygen-Administer 07,19 (08/24/22 12:04) Weight Bearing As Tolerated (08/24/22 12:04) General/Regular (08/24/22 Lunch) Apixaban Tablet (Eliquis Tablet) (08/24/22 21:00) Atorvastatin Tablet (Lipitor Tablet) (08/24/22 21:00) Diphenhydramine Injection (Benadryl Inje (08/24/22 12:15) Diphenhydramine Tablet (Benadryl Tablet) (08/24/22 12:15) Carbidopa/Levodopa 25/100 (Sinemet 25/10 (08/24/22 13:00) Docusate Sodium Capsule (Colace Capsule) (08/24/22 21:00) Bisacodyl Suppository (Dulcolax Supposit (08/24/22 12:15) Lactulose Oral Solution (Enulose Oral So (08/24/22 12:15) Flecainide Tablet (Tambocor Tablet) (08/24/22 21:00) Magnesium Hydroxide Oral Susp (Mom Oral (08/24/22 12:15) Polyethylene Glycol Powder Pkt (Miralax (08/24/22 12:15) Antacid Suspension (Mylanta Suspension (08/24/22 12:15) Sennosides Tablet (Senokot Tablet) (08/24/22 21:00) Sertraline Tablet (Zoloft Tablet) (08/25/22 09:00) Simethicone Tablet (Mylicon Chewable Tab (08/24/22 12:15) Therapeutic Multivitamin Tab (Vitamins, (08/25/22 07:00) Calcium Carbonate Chew Tablet (Antacid C (08/24/22 12:15) Acetaminophen Tablet/Caplet (Tylenol T (08/24/22 12:15) Ondansetron Injection (Zofran Injectio (08/24/22 12:15) Ondansetron Oral Dissolve Tab (Zofran (08/24/22 12:15) Amlodipine Tablet (Norvasc Tablet) (08/25/22 09:00) Diazepam Tablet (Valium Tablet) (08/24/22 21:00) Fentanyl Inj (Sublimaze Injection) (08/24/22 12:15) Oxycodone Immediate Rel Tablet (Oxyir Ta (08/24/22 12:15) Ropinirole Tablet (Requip Tablet) (08/24/22 13:00) Consult Orthopedic Surgery (08/24/22 12:04) Oxygen Delivery Set Up (08/24/22 12:04) Iv Convert To [place] (Order) (08/24/22 12:04) Patient Visit (08/24/22 ) Mat Initiate Protocol (08/24/22 13:57) Manual Differential (08/25/22 05:43) Catheter(Urinary) Discontinue (08/26/22 07:00) Patient Visit (08/25/22 ) Functional Activities, Ea 15 (08/25/22 ) Cbc With Automated Diff (08/26/22 07:20) Comprehensive Metabolic Panel (08/26/22 07:20) Chest 1 View, Ap/Pa Only (08/26/22 07:20) Arterial Blood Gas (08/26/22 07:20) Arterial Blood Draw - Obtain (08/26/22 07:20) Rehab Nursing Orders: Ongoing Assess. of Cognitive Status, Ongoing Assess. of Function Status, Bladder Management, Bladder Scan, Bladder Training, Bowel Management, Bowel Training, Disease Management & Educaiton, DVT Prophylaxis, Fall Prevention, Fluid/Electrolyte/Nutrition Mgmt, Infection Prevention, Medication Management & Education, Management of Risks & Complications, Management of Skin Intergrity, Nutrition Management, Pain Management, Patient/Fa hazel Support, Safety Management, Wound Management Intensity of Therapy to be met Patient to be seen: Min.3h per day/5 of 7d PT IPOC Problem List: Activity Tolerance, Functional Strength, Balance, Gait, Transfer, Bed Mobility, ROM Treatment Plan: Continue Plan of Care Bed Mobility, Education, Functional Activity Junior, Functional Strength, Group Therapy, Gait, Safety, Therapeutic Exercise, Transfers Treatment Duration: Aug 31, 2022 Frequency: At least 5 of 7 days/Wk (IRF) Estimated Hrs Per Day: 1.5 hours per day OT IPOC Problems: Decreased Activ Tolerance, Decreased UE Strength, Impaired Bed Mobility, Impaired Coordination, Impaired Funct Balance, Impaired I ADL's, Impaired Self-Care Skills OT Treatment, Training and Edu: Yes Plan of Care: ADL Retraining, Functional Mobility, Group Exercise/Act as Ind, UE Funct Exercise/Act Treatment Duration: Sep 21, 2022 Frequency: At least 5 of 7 days/Wk (IRF) Estimated Hrs Per Day: 1.[address] IPOC Speech Therapy Treatment Plan: Continue Plan of Care Treatment Duration: Aug 24, 2022 Frequency: Modified Program (IRF) Estimated Hrs Per Day: Other Customer Account Specialist/Case Mgmt Customer Account Specialist/Case Managemen: Discharge Planning Dietitian/Event Coordinator Marketing And Sales Dietitian/Event Coordinator Marketing And Sales to monitor nutritional status and make changes and/or recommendations as needed and work with speech pathology on dietary upgrades as the occur. Physician IPOC Medical Issues being managed closely and that require the 24 hour availability of a physician: Recent hip fracture and hypoxia requiring continuous O2 with severe Parkinson's will be at high risk for falls and PNA Medical Issues: Bowel/Bladder Function, DVT Prophylaxis, Falls Precautions, Fluid/Electrolyte/Nutrition Balance, Infection Protection, Pain Management, Wound Care Brief Synthesis of Preadmission Screen, Post-Admission Evaluation, and Therapy Evaluations: PT OT will focus on regaining function with use of AD and work on increasing stamina along with independence in ADL's Medical Prognosis: Fair to good Anticipated Length of Stay: 7 days FLORENCIA TAPIA DO Aug 25, 2022 08:55
[2022-08-25] MEDS: DOCUSATE SODIUM 100 MG (COLACE) CAP PO SCH ×2 (09:26→20:30)
[2022-08-25] MEDS: SENNOSIDES 8.6 MG (SENOKOT) TAB PO SCH ×2 (09:26→20:31)
[2022-08-25] MEDS: polyethylene glycoL POWDER 17 GM (MIRALAX) PACK PO SCH ×2 (09:26→19:48)
[2022-08-25] MEDS: rOPINIRole 1 MG (REQUIP) TABLET PO SCH ×3 (09:31→20:31)
[2022-08-25] MEDS: FLECAINIDE 100 MG (TAMBOCOR) TAB PO SCH ×2 (09:31→20:31)
[2022-08-25] MEDS: amLODIPine 5 MG (NORVASC) TAB PO SCH (09:32)
[2022-08-25] MEDS: APIXABAN 2.5 MG (ELIQUIS) TABLET PO SCH ×2 (09:32→20:31)
[2022-08-25] MEDS: SERTRALINE 50 MG (ZOLOFT) TABLET PO SCH (09:32)
--- NOTE | 2022-08-25 13:37 | Physical Therapy Daily Note ---
PT Daily Note-Current Subjective Pt found lying in bed upon entry. Agreed to PT. Reports 10+/10 pain pre- treatment. Pain Section J - Health Conditions 1. Rarely or not at all 2. Occasionally 3. Frequently 4. Almost constantly 8. Unable to answer Pain Effect on Sleep: 2 Pain Interference with Therapy: 4 Pain Interference w/Day-to-Day: 4 Mental Status Patient Orientation: Person, Place Attachments: [place] Catheter Transfers SCALE: Activities may be completed with or without assistive devices. 3-Ylcvrkfxjf-htoxgtz completes the activity by him/herself with no assistance from a helper. 5-Set-up or Clean-up Assistance-helper sets up or cleans up; patient completes activity. [place] assists only prior to or following the activity. 4-Supervision or Touching Assistance-helper provides verbal cues and/or to uching/steadying and/or contact guard assistance as patient completes activity. Assistance may be provided throughout the activity or intermittently. 3-Partial/Moderate Assistance-helper does LESS THAN HALF the effort. [place] lifts, holds or supports trunk or limbs, but provides less than half the effort. 2-Substantial/Maximal Assistance-helper does MORE THAN HALF the effort. [place] lifts or holds trunk or limbs and provides more than half the effort. 6-Rkehaprep-zecacv does ALL the effort. Patient does none of the effort to complete the activity. Or, the assistance of 2 or more helpers is required for the patient to complete the activity. If activity was not attempted, code reason: 7-Patient Refused. 9-Not Applicable-not attempted and the patient did not perform the activity before the current illness, exacerbation or injury. 10-Not Attempted due to Environmental Limitations-(lack of equipment, weather restraints, etc.). 88-Not Attempted due to Medical Conditions or Safety Concerns. Sit to Lying (QC): 2 Lying to Sitting/Side of Bed(Q: 2 Sit to Stand (QC): 3 Toilet Transfer (QC): 3 Pt MAX assist with lying to sitting and sitting to lying transfers. Required ass istance to move affected LE off edge of bed and back into bed. MIN assist with sit to stand and toilet transfer. Weight Bearing Right Lower Extremity: Right Weight Bearing/Tolerated Gait Training Does the Patient Walk?: No and Walking Goal IS indicated Assessment Current Status: Fair Progress Pt demonstrated poor ability to complete transfers safely and required MIN/MOD assistance from CAN TECHNICIAN. Pt required short breaks while completing transfers due to reported pain. Required verbal cues for proper hand placement to complete sit to stand transfers. Displays poor muscle strength and endurance with transfers. Continue to progress pt as tolerated per POC to improve, strength, endurance, functional ability, and decrease pain. PT Short Term Goals Short Term Goals Time Frame: Aug 31, 2022 Roll Left & Right: 5 Sit to lyin Lying to sitting on side of be: 3 Sit to stand: 4 Chair/hkw-sb-jwxgh transfer: 4 Toilet transfer: 4 Car transfer: 4 Walk 10 feet: 3 Walk 50 feet with two turns: 3 Walk 150 feet: 3 Walking 10ft on uneven surface: 3 1 step (curb): 3 4 steps: 3 12 steps: 9 Picking up objects: 3 Does pt use a wc or scooter: No PT Global Project Manager Goals Snf Goals PT Global Project Manager Goals Time Frame: Aug 31, 2022 Roll Left & Right (QC): 6 Sit to Lying (QC): 5 Lying-Sitting on Side/Bed(QC): 5 Sit to Stand (QC): 5 Chair/Pmf-fc-Gittm Xfer(QC): 5 Toilet Transfer (QC): 5 Car Transfer (QC): 5 Does the Patient Walk: Yes Walk 10 feet (QC): 5 Walk 50ft with 2 Turns (QC): 5 Walk 150 ft (QC): 5 Walking 10ft on Uneven Surface: 5 1 Step (curb) (QC): 5 4 Steps (QC): 5 12 Steps (QC): 9 Picking up an Object (QC): 5 Does the Pt use WC or Scooter?: No Wheel 50 feet with 2 turns (QC: 9 Wheel 150 feet: 9 PT Plan Treatment/Plan Treatment Plan: Continue Plan of Care Treatment Plan: Bed Mobility, Education, Functional Activity Junior, Functional Strength, Group Therapy, Gait, Safety, Therapeutic Exercise, Transfers Treatment Duration: Aug 31, 2022 Frequency: At least 5 of 7 days/Wk (IRF) Estimated Hrs Per Day: 1.5 hours per day Patient and/or Family Agrees t: Yes Time Time In: 09 Time Out: 50 DATE: Aug 25, 2022 Total Billed Treatment Time: 26 Total Billed Treatment 1 visit FA MIKE Lind CAN TECHNICIAN Aug 25, 2022 13:37
[2022-08-25 19:49] VITALS: BP 131/69
[2022-08-25] MEDS: AtorvaSTATin TABLET 10 MG TABLET PO SCH (20:31)
[2022-08-26 01:25] VITALS: BP 144/80
[2022-08-26] MEDS: SINEMET 25/100 (CARBIDOPA/LEVODOPA) TAB PO SCH (05:26)
[2022-08-26] MEDS: MULTIVIT W/MINERALS TAB (THERAGRAN M) PO SCH (05:26)
[2022-08-26 07:30] VITALS: BP 154/87
--- NOTE | 2022-08-26 07:41 | PM&R Progress Note ---
Subjective HPI/CC On Admission Date Seen by Provider: Aug 26, 2022 Time Seen by Provider: 12:00 Subjective/Events-last exam 08/26/2022: 08/25/2022: Settling in well Maintained on O2 Monitoring closely Appears fatigued and frail Review of Systems General: Fatigue, Malaise Musculoskeletal: leg pain Objective Exam Vital Signs Vital Signs Date Time Temp Pulse Resp B/P (MAP) Pulse Ox O2 Delivery O2 Flow Rate FiO2 08/26/22 07:30 36.9 70 18 154/87 (109) 92 Nasal Cannula 3.00 08/24/22 13:48 32 Capillary Refill : General Appearance: No Apparent Distress, WD/WN, Chronically ill, Thin HEENT: PERRL/EOMI, Normal ENT Inspection, Pharynx Normal Neck: Full Range of Motion, Normal Inspection, Non Tender, Supple, Carotid Bru it Respiratory: Chest Non Tender, Lungs Clear, No Accessory Muscle Use, No Res piratory Distress, Decreased Breath Sounds Cardiovascular: Regular Rate, Rhythm, No Edema, No Gallop, No JVD, No Murmur, Normal Peripheral Pulses Gastrointestinal: Normal Bowel Sounds, No Organomegaly, No Pulsatile Mass, Non Tender, Soft Back: Normal Inspection, No CVA Tenderness, No Vertebral Tenderness Extremity: Normal Capillary Refill, Normal Inspection, Normal Range of Motion (except right leg), Non Tender, No Calf Tenderness, No Pedal Edema Neurologic/Psychiatric: Alert, Oriented x3, concrete products machine operator II-XII Norm as Tested, Abnormal Gait, Depressed Affect, Motor Weakness (generalized with right leg weakness) Skin: Normal Color, Warm/Dry Lymphatic: No Adenopathy Results/Procedures Lab Laboratory Tests 08/26/22 07:33 Patient resulted labs reviewed. FIM Transfers Therapy Code Descriptions/Definitions Functional [place] Measure: 0=Not Assessed/NA 4=Minimal Assistance 1=Total Assistance 5=Supervision or Setup 2=Maximal Assistance 6=Modified [place] 3=Moderate Assistance 7=Complete IndependenceSCALE: Activities may be completed with or without assistive devices. 8-Mfltflviyc-vfpcwqt completes the activity by him/herself with no assistance from a helper. 5-Set-up or Clean-up Assistance-helper sets up or cleans up; patient completes activity. [place] assists only prior to or following the activity. 4-Supervision or Touching Assistance-helper provides verbal cues and/or touching/steadying and/or contact guard assistance as patient completes activity. Assistance may be provided throughout the activity or intermittently. 3-Partial/Moderate Assistance-helper does LESS THAN HALF the effort. [place] lifts, holds or supports trunk or limbs, but provides less than half the effort. 2-Substantial/Maximal Assistance-helper does MORE THAN HALF the effort. [place] lifts or holds trunk or limbs and provides more than half the effort. 6-Pgbmxolct-kvwzdk does ALL the effort. Patient does none of the effort to complete the activity. Or, the assistance of 2 or more helpers is required for the patient to complete the activity. If activity was not attempted, code reason: 7-Patient Refused. 9-Not Applicable-not attempted and the patient did not perform the activity before the current illness, exacerbation or injury. 10-Not Attempted due to Environmental Limitations-(lack of equipment, weather restraints, etc.). 88-Not Attempted due to Medical Conditions or Safety Concerns. Roll Left to Right (QC): 3 Sit to Lying (QC): 2 Sit to Stand (QC): 3 Chair/Szr-fo-Mxfpk Xfer(QC): 3 (Min-Mod assist of 1 to scoot feet to (L) then back up to EOB using FWW) Car Transfer (QC): 88 Gait Training Does the Patient Walk?: No and Walking Goal IS indicated Walk 10 feet (QC): 88 (Patient ambulated forward 4 steps with FWW and mod (A) /cues to walker use and stepping strategies. Patient unable to walk 10' due to strength limitations, activity tolerance limitations and pain (rated as "30" (R) hip).) Walk 50 ft with 2 Turns(QC): 88 Walk 150 ft (QC): 88 Walking 10ft/uneven surface-QC: 88 Gait Assistive Device: FWW Wheelchair Training Does the Pt Use a Wheelchair?: No Wheel 50 ft with 2 turns (QC): 88 Wheel 150 ft (QC): 88 Stair Training 1 Step (curb) (QC): 88 4 Steps (QC): 88 12 Steps (QC): 88 Balance Picking up an Object (QC): 88 ADL-Treatment Eating (QC): 5 Oral Hygiene (QC): 5 Shower/Bathe Self (QC): 1 Upper Body Dressing (QC): 5 Lower Body Dressing (QC): 1 On/Off Footwear (QC): 2 Toileting Hygiene (QC): 1 Assessment/Plan Assessment and Plan Assess & Plan/Chief Complaint Right proximal femur fracture Hypoxia PAF CHF HTN CAD Parkinson's Disease Plan Right proximal femur fracture -Ortho managing -Pain control: PO oxy, APAP PRN, IV fentanyl PRN for breakthrough -Hgb 12.7, Coags WNL on admission -Normotensive, VSS. Hypoxia -Currently on 3 L N.C, satting mid 90s. -Wears N.C at home during nighttime with O2 concentrator, unsure of baseline flow rate. -CXR showed mild edema, normal lung exam -Likely some aspect of chronicity exacerbated by narcotic administration as patient O2 sats were normal prior to admin per EMS PAF -On Apixiban 2.5mg BID - hold, last dose was PM 08/20 -On flecainide - continue CHF CAD HTN - new Parkinson's Disease -Carbidopa/levodopa 25-100mg 1.5 tabs QID at home - continue -Ropinriole 1.5mg daily - continue 08/25/2022: Monitor closely Impulsive 08/26/2022: (1) right hip fracture FLORENCIA TAPIA DO Aug 26, 2022 07:40
[2022-08-26 07:44] LABS: BASOPHILS % (AUTO) 1 % (0-10); EOSINOPHILS # (AUTO) 0.1 10^3/uL (0.0-0.3); EOSINOPHILS % (AUTO) 1 % (0-10); HEMATOCRIT 33 % (35-52); HEMOGLOBIN 10.3 g/dL (11.5-16.0); LYMPHOCYTES # (AUTO) 0.9 10^3/uL (1.0-4.0); LYMPHOCYTES % (AUTO) 13 % (12-44); MEAN CORPUSCULAR HEMOGLOBIN 29 pg (25-34); MEAN CORPUSCULAR HGB CONC 31 g/dL (32-36); MEAN CORPUSCULAR VOLUME 92 fL (80-99); MEAN PLATELET VOLUME 9.8 fL (9.0-12.2); MONOCYTES # (AUTO) 0.8 10^3/uL (0.0-1.0); MONOCYTES % (AUTO) 12 % (0-12); NEUTROPHILS # (AUTO) 4.7 10^3/uL (1.8-7.8); NEUTROPHILS % (AUTO) 73 % (42-75); PLATELET COUNT 170 10^3/uL (130-400); WHITE BLOOD COUNT 6.4 10^3/uL (4.3-11.0)
[2022-08-26 07:51] LABS: CHLORIDE 99 MMOL/L (98-107); POTASSIUM 3.9 MMOL/L (3.6-5.0); SODIUM 138 MMOL/L (135-145)
[2022-08-26 07:53] LABS: CALCIUM 8.6 MG/DL (8.5-10.1)
[2022-08-26 07:54] LABS: GLUCOSE 107 MG/DL (70-105); TOTAL PROTEIN 6.1 GM/DL (6.4-8.2)
[2022-08-26 07:55] LABS: CARBON DIOXIDE 29 MMOL/L (21-32)
[2022-08-26 07:57] LABS: ALKALINE PHOSPHATASE 58 U/L (40-136)
[2022-08-26 07:58] LABS: CREATININE SERUM 0.66 MG/DL (0.60-1.30); GFR ESTIMATED 86
[2022-08-26 07:59] LABS: BUN/CREATININE RATIO 29
[2022-08-26 07:59] LABS: ABG BASE EXCESS 10.3 MMOL/L (-2.5-2.5); ABG OXYGEN SATURATION 92 % (94-100); ABG PCO2 54 MMHG (35-45); ABG PH 7.43 (7.37-7.43); ABG PO2 59 MMHG (79-93); ABG TCO2 36.7 MMOL/L (21.0-31.0)
[2022-08-26 08:00] LABS: ALLENS TEST YES-POS; INSPIRED O2 3; PATIENT TEMP 36.9; VENTILATOR NO
[2022-08-26 08:00] LABS: ALANINE AMINOTRANSFERASE < 6 U/L (0-55)
--- NOTE | 2022-08-26 08:23 | Diagnostic Imaging Report ---
EXAMINATION: Chest 1 view HISTORY: Hypoxia COMPARISON: 08/21/2022 FINDINGS: Heart is mildly enlarged. No pleural effusion or pneumothorax. There are patchy nodular opacities in the right lung. There is a proximal right humeral fracture, likely chronic. IMPRESSION: 1. Patchy nodular opacities in the right lung concerning for pneumonia. Dictated by: Dictated on workstation # [id number]
[2022-08-26] MEDS: SERTRALINE 50 MG (ZOLOFT) TABLET PO SCH (08:42)
[2022-08-26] MEDS: rOPINIRole 1 MG (REQUIP) TABLET PO SCH (08:42)
[2022-08-26] MEDS: amLODIPine 5 MG (NORVASC) TAB PO SCH (08:42)
[2022-08-26] MEDS: APIXABAN 2.5 MG (ELIQUIS) TABLET PO SCH (08:43)
[2022-08-26] MEDS: FLECAINIDE 100 MG (TAMBOCOR) TAB PO SCH (08:43)
[2022-08-26] MEDS: polyethylene glycoL POWDER 17 GM (MIRALAX) PACK PO SCH (08:45)
[2022-08-26] MEDS: SENNOSIDES 8.6 MG (SENOKOT) TAB PO SCH (08:47)
[2022-08-26] MEDS: DOCUSATE SODIUM 100 MG (COLACE) CAP PO SCH (08:47)
--- NOTE | 2022-08-26 09:03 | Discharge Summary ---
Diagnosis/Chief Complaint Date of Admission Aug 24, 2022 at 11:18 Date of Discharge Discharge Diagnosis Right proximal femur fracture Hypoxia with hypercapnia with PNA on CXR 08/26/22 requiring ICU transfer PAF CHF HTN CAD Parkinson's Disease Plan Right proximal femur fracture -Ortho managing -Pain control: PO oxy, APAP PRN, IV fentanyl PRN for breakthrough -Hgb 12.7, Coags WNL on admission -Normotensive, VSS. Hypoxia -Currently on 3 L N.C, satting mid 90s. -Wears N.C at home during nighttime with O2 concentrator, unsure of baseline flow rate. -CXR showed mild edema, normal lung exam -Likely some aspect of chronicity exacerbated by narcotic administration as patient O2 sats were normal prior to admin per EMS PAF -On Apixiban 2.5mg BID - hold, last dose was PM 08/20 -On flecainide - continue CHF CAD HTN - new Parkinson's Disease -Carbidopa/levodopa 25-100mg 1.5 tabs QID at home - continue -Ropinriole 1.5mg daily - continue 08/25/2022: Monitor closely Impulsive Discharge Summary Discharge Physical Examination Allergies: Coded Allergies: Sulfa (Sulfonamide Antibiotics) (Verified Allergy, Unknown, hives, 11/16/19) Vitals & I&Os Vital Signs Date Time Temp Pulse Resp B/P (MAP) Pulse Ox O2 Delivery O2 Flow Rate FiO2 08/26/22 08:00 94 Nasal Cannula 3.00 08/26/22 07:30 36.9 70 18 154/87 (109) 08/24/22 13:48 32 General Appearance: Alert, Other (drowsy, frail) Respiratory: Clear to Auscultation Cardiovascular: Regular Rate Psych/Mental Status: Mental Status NL Hospital Course Was the Problem List Reviewed?: Yes Short course after admitted to ARU from 4th floor after an uneventful hip fracture repair but she had significant hypoxia on 08/26/22 with retention of CO2 requiring transfer to ICU. Labs (last 24 hrs) Laboratory Tests 08/25/22 05:43: White Blood Count 8.2, Red Blood Count 3.77L, Hemoglobin 10.8L, Hematocrit 35, Mean Corpuscular Volume 93, Mean Corpuscular Hemoglobin 29, Mean Corpuscular Hemoglobin Concent 31L, Red Cell Distribution Width 14.6H, Platelet Count 160, Mean Platelet Volume 10.2, Immature Granulocyte % (Auto) 0, Neutrophils (%) (Auto) 84H, Lymphocytes (%) (Auto) 7L, Monocytes (%) (Auto) 9, Eosinophils (%) (Auto) 0, Basophils (%) (Auto) 0, Neutrophils # (Auto) 6.9, Lymphocytes # (Auto) 0.6L, Monocytes # (Auto) 0.7, Eosinophils # (Auto) 0.0, Basophils # (Auto) 0.0, Immature Granulocyte # (Auto) 0.0, Neutrophils % (Manual) 88, Lymphocytes % (Manual) 7, Monocytes % (Manual) 5, Elliptocytes SLIGHT, Sodium Level 137, Potassium Level 4.4, Chloride Level 99, Carbon Dioxide Level 30, Anion Gap 8, Blood Urea Nitrogen 22H, Creatinine 0.76, Estimat Glomerular Filtration Rate 77, BUN/Creatinine Ratio 29, Glucose Level 108H, Calcium Level 9.0, Corrected Calcium 9.6, Total Bilirubin 0.9, Aspartate Amino Transf (AST/SGOT) 19, Alanine Aminotransferase (ALT/SGPT) < 6, Alkaline Phosphatase 63, Total Protein 6.7, Albumin 3.3 08/26/22 07:33: White Blood Count 6.4, Red Blood Count 3.57L, Hemoglobin 10.3L, Hematocrit 33L, Mean Corpuscular Volume 92, Mean Corpuscular Hemoglobin 29, Mean Corpuscular Hemoglobin Concent 31L, Red Cell Distribution Width 14.3, Platelet Count 170, Mean Platelet Volume 9.8, Immature Granulocyte % (Auto) 0, Neutrophils (%) (Auto) 73, Lymphocytes (%) (Auto) 13, Monocytes (%) (Auto) 12, Eosinophils (%) ( Auto) 1, Basophils (%) (Auto) 1, Neutrophils # (Auto) 4.7, Lymphocytes # (Auto) 0.9L, Monocytes # (Auto) 0.8, Eosinophils # (Auto) 0.1, Basophils # (Auto) 0.0, Immature Granulocyte # (Auto) 0.0, Sodium Level 138, Potassium Level 3.9, C hloride Level 99, Carbon Dioxide Level 29, Anion Gap 10, Blood Urea Nitrogen 19H , Creatinine 0.66, Estimat Glomerular Filtration Rate 86, BUN/Creatinine Ratio 29, Glucose Level 107H, Calcium Level 8.6, Corrected Calcium 9.4, Total Bilirubin 1.0, Aspartate Amino Transf (AST/SGOT) 17, Alanine Aminotransferase (ALT/SGPT) < 6, Alkaline Phosphatase 58, Total Protein 6.1L, Albumin 3.0L 08/26/22 07:45: Blood Gas Puncture Site R rad, Blood Gas Patient Temperature 36.9, Arterial Blood pH 7.43, Arterial Blood Partial Pressure CO2 54H, Arterial Blood Partial Pressure O2 59L, Arterial Blood HCO3 35H, Arterial Blood Total CO2 36.7H, Arterial Blood Oxygen Saturation 92L, Arterial Blood Base Excess 10.3H, Bhavesh Test YES-POS, Blood Gas Ventilator Setting NO, Blood Gas Inspired Oxygen 3 08/26/22 09:24: Lactic Acid Level 1.27 Pending Labs Laboratory Tests 08/25/22 05:43: White Blood Count 8.2, Red Blood Count 3.77, Hemoglobin 10.8, Hematocrit 35, Mean Corpuscular Volume 93, Mean Corpuscular Hemoglobin 29, Mean Corpuscular Hemoglobin Concent 31, Red Cell Distribution Width 14.6, Platelet Count 160, Mean Platelet Volume 10.2, Immature Granulocyte % (Auto) 0, Neutrophils (%) (Auto) 84, Lymphocytes (%) (Auto) 7, Monocytes (%) (Auto) 9, Eosinophils (%) (Auto) 0, Basophils (%) (Auto) 0, Neutrophils # (Auto) 6.9, Lymphocytes # (Auto) 0.6, Monocytes # (Auto) 0.7, Eosinophils # (Auto) 0.0, Basophils # (Auto) 0.0, Immature Granulocyte # (Auto) 0.0, Neutrophils % (Manual) 88, Lymphocytes % (Manual) 7, Monocytes % (Manual) 5, Elliptocytes SLIGHT, Sodium Level 137, Potassium Level 4.4, Chloride Level 99, Carbon Dioxide Level 30, Anion Gap 8, Blood Urea Nitrogen 22, Creatinine 0.76, Estimat Glomerular Filtration Rate 77, BUN/Creatinine Ratio 29, Glucose Level 108, Calcium Level 9.0, Corrected Calcium 9.6, Total Bilirubin 0.9, Aspartate Amino Transf (AST/SGOT) 19, Alanine Aminotransferase (ALT/SGPT) < 6, Alkaline Phosphatase 63, Total Protein 6.7, Albumin 3.3 08/26/22 07:33: White Blood Count 6.4, Red Blood Count 3.57, Hemoglobin 10.3, Hematocrit 33, Mean Corpuscular Volume 92, Mean Corpuscular Hemoglobin 29, Mean Corpuscular Hemoglobin Concent 31, Red Cell Distribution Width 14.3, Platelet Count 170, Mean Platelet Volume 9.8, Immature Granulocyte % (Auto) 0, Neutrophils (%) (Auto) 73, Lymphocytes (%) (Auto) 13, Monocytes (%) (Auto) 12, Eosinophils (%) (Auto) 1, Basophils (%) (Auto) 1, Neutrophils # (Auto) 4.7, Lymphocytes # (Auto) 0.9, Monocytes # (Auto) 0.8, Eosinophils # (Auto) 0.1, Basophils # (Auto) 0.0, Immature Granulocyte # (Auto) 0.0, Sodium Level 138, Potassium Level 3.9, Chloride Level 99, Carbon Dioxide Level 29, Anion Gap 10, Blood Urea Nitrogen 19, Creatinine 0.66, Estimat Glomerular Filtration Rate 86, BUN/Creatinine Ratio 29, Glucose Level 107, Calcium Level 8.6, Corrected Calcium 9.4, Total Bilirubin 1.0, Aspartate Amino Transf (AST/SGOT) 17, Alanine Aminotransferase (ALT/SGPT) < 6, Alkaline Phosphatase 58, Total Protein 6.1, Albumin 3.0 08/26/22 07:45: Blood Gas Puncture Site R rad, Blood Gas Patient Temperature 36.9, Arterial Blood pH 7.43, Arterial Blood Partial Pressure CO2 54, Arterial Blood Partial Pressure O2 59, Arterial Blood HCO3 35, Arterial Blood Total CO2 36.7, Arterial Blood Oxygen Saturation 92, Arterial Blood Base Excess 10.3, Bhavesh Test YES-POS, Blood Gas Ventilator Setting NO, Blood Gas Inspired Oxygen 3 08/26/22 09:24: Lactic Acid Level 1.27 Discharge Home Medications: Active Scripts Active Reported Carbidopa-Levodopa 25-100 Tab (Carbidopa/Levodopa) 25 Mg-100 Mg Tablet 1 Ea PO 0700,1000,1300,1600,1900 Melatonin 10 Mg Tablet 10 Mg PO HS Multivitamin 1 Each Tablet 1 Each PO DAILY B-Complex Tablet (Vitamin B Complex/Folic Acid) 0.4 Mg Tablet 1 Ea PO DAILY Sertraline HCl 25 Mg Tablet 25 Mg PO DAILY Ropinirole HCl 2 Mg Tablet 2 Mg PO TID Amlodipine Besylate 5 Mg Tablet 5 Mg PO DAILY Tramadol HCl 50 Mg Tablet 50 Mg PO BID PRN Ocuvite Eye + Multi Tablet (Mv-Mn/FA/Vit K/Lycop/Lut/Zeaxa) 1 Each Tablet 1 Each PO DAILY Vitamin C (Ascorbic Acid) 500 Mg Capsule 500 Mg PO DAILY Flecainide Acetate 100 Mg Tablet 50 Mg PO BID TAKES OF A 100MG TAB Docusate Sodium 100 Mg Capsule 100 Mg PO BID Diazepam 10 Mg Tablet 10 Mg PO HS Lovastatin 10 Mg Tablet 10 Mg PO HS Eliquis (Apixaban) 2.5 Mg Tablet 2.5 Mg PO BID Instructions to patient/family Please see electronic discharge instructions given to patient. Diagnosis/Problems Diagnosis/Problems (1) right hip fracture FLORENCIA TAPIA DO Aug 26, 2022 09:03
--- NOTE | 2022-08-28 11:39 | Therapy Team Discharge Summary ---
Therapy Discharge Summary Discharge Recommendations Date of Discharge Aug 26, 2022 at 09:30 Physical Therapy Patient admitted to ARU 08/24/22 s/p (R) hip fx with IM nail. PT evaluation completed that date with patient attending group therapy in the p.m. Patient unexpectedly discharged from ARU and transferred to ICU on 08/26/22 due to change in medical status, therefore D/C QC's not obtained. Roll Left to Right (QC): 3 Sit to Lying (QC): 2 Lying to Sitting/Side of Bed(Q: 2 Sit to Stand (QC): 3 Chair/Jek-oq-Unerh Xfer(QC): 3 (Min-Mod assist of 1 to scoot feet to (L) then back up to EOB using FWW) Toilet Transfer (QC): 1 Car Transfer (QC): 88 Does the Patient Walk: No and Walking Goal IS indicated Mode of Locomotion: Walk Anticipated Mode of Locomotion: Both Walk 10 feet (QC): 88 (Patient ambulated forward 4 steps with FWW and mod (A) / cues to walker use and stepping strategies. Patient unable to walk 10' due to strength limitations, activity tolerance limitations and pain (rated as "30" (R) hip).) Walk 50 ft with 2 Turns(QC): 88 Walk 150 ft (QC): 88 Walking 10ft on uneven surface: 88 Gait Assistive Device: FWW Does the Pt Use a Wheelchair: No Wheel 50 ft with 2 turns (QC): 88 Wheel 150 ft (QC): 88 1 Step (curb) (QC): 88 4 Steps (QC): 88 12 Steps (QC): 88 Balance Sitting Static: Good Balance Sitting Dynamic: Fair Balance-Standing Static: Fair Picking up an Object (QC): 88 Occupational Therapy Decreased Activ Tolerance, Decreased UE Strength, Impaired Bed Mobility, Impaired Coordination, Impaired Funct Balance, Impaired I ADL's, Impaired Self- Care Skills Eating (QC): 5 Oral Hygiene (QC): 5 Shower/Bathe Self (QC): 1 Upper Body Dressing (QC): 5 Lower Body Dressing (QC): 1 On/Off Footwear (QC): 2 Toileting Hygiene (QC): 1 PT Alf Goals Vessel Operator Goals PT Vessel Operator Goals Time Frame: Aug 31, 2022 Roll Left to Right (QC): 6 Sit to Lying (QC): 5 Lying-Sitting on Side/Bed(QC): 5 Sit to Stand (QC): 5 Chair/Xzi-gp-Ascup Xfer(QC): 5 Toilet/Commode Transfer (QC): 5 Car Transfer (QC): 5 Does the Patient Walk: Yes Walk 10 feet (QC): 5 Walk 10ft-Uneven Surface(QC): 5 Walk 50ft with 2 Turns (QC): 5 Walk 150 ft (QC): 5 Does the Pt use WC or Scooter?: No Wheel 50 feet with 2 turns (QC: 9 Wheel 150 feet: 9 1 Step (curb) (QC): 5 4 Steps (QC): 5 12 Steps (QC): 9 Picking up an Object (QC): 5 OT Alf Goals Alf Goals Time Frame: Sep 21, 2022 Acute change in mental status: 0 Inattention: 0 Disorganized thinkin Altered level of consciousness: 2 Eating (QC): 6 Oral Hygiene (QC): 6 Toileting Hygiene (QC): 6 Shower/Bathe Self (QC): 5 Upper Body Dressing (QC): 6 Lower Body Dressing (QC): 6 On/Off Footwear (QC): 6 Additional Goals: 1-Demonstrate ADL Tasks, 2-Verbalize Understanding, 3- ImproveStrength/Junior 1=Demonstrate adherence to instructed precautions during ADL tasks. 2=Patient will verbalize/demonstrate understanding of assistive devices/modifications for ADL. 3=Patient will improve strength/tolerance for activity to enable patient to perform ADL's. Denise Naranjo PT Aug 28, 2022 11:39
--- NOTE | 2022-08-28 16:12 | Therapy Team Discharge Summary ---
Therapy Discharge Summary Discharge Recommendations Date of Discharge Aug 26, 2022 at 09:30 Physical Therapy Roll Left to Right (QC): 3 Sit to Lying (QC): 2 Lying to Sitting/Side of Bed(Q: 2 Sit to Stand (QC): 3 Chair/Inq-zh-Kixlr Xfer(QC): 3 (Min-Mod assist of 1 to scoot feet to (L) then back up to EOB using FWW) Toilet Transfer (QC): 1 Car Transfer (QC): 88 Does the Patient Walk: No and Walking Goal IS indicated Mode of Locomotion: Walk Anticipated Mode of Locomotion: Both Walk 10 feet (QC): 88 (Patient ambulated forward 4 steps with FWW and mod (A) /cues to walker use and stepping strategies. Patient unable to walk 10' due to strength limitations, activity tolerance limitations and pain (rated as "30" (R) hip).) Walk 50 ft with 2 Turns(QC): 88 Walk 150 ft (QC): 88 Walking 10ft on uneven surface: 88 Gait Assistive Device: FWW Does the Pt Use a Wheelchair: No Wheel 50 ft with 2 turns (QC): 88 Wheel 150 ft (QC): 88 1 Step (curb) (QC): 88 4 Steps (QC): 88 12 Steps (QC): 88 Balance Sitting Static: Good Balance Sitting Dynamic: Fair Balance-Standing Static: Fair Picking up an Object (QC): 88 Occupational Therapy Pt admitted to ARU s/p IM nail. Pt had short stay on rehab, complicated by hypoxia requiring higher level of care and transfer to ICU. Pt did not attain any LTGs due to short stay on rehab floor, and only having 1 day of therapy. Pt discharged from unit to ICU, d/c from OT. Decreased Activ Tolerance, Decreased UE Strength, Impaired Bed Mobility, Impaired Coordination, Impaired Funct Balance, Impaired I ADL's, Impaired Self- Care Skills Eating (QC): 5 Oral Hygiene (QC): 5 Shower/Bathe Self (QC): 1 Upper Body Dressing (QC): 5 Lower Body Dressing (QC): 1 On/Off Footwear (QC): 2 Toileting Hygiene (QC): 1 PT [facility] Goals Associate Merchandise Planner Goals PT Associate Merchandise Planner Goals Time Frame: Aug 31, 2022 Roll Left to Right (QC): 6 Sit to Lying (QC): 5 Lying-Sitting on Side/Bed(QC): 5 Sit to Stand (QC): 5 Chair/Mbb-oj-Llidu Xfer(QC): 5 Toilet/Commode Transfer (QC): 5 Car Transfer (QC): 5 Does the Patient Walk: Yes Walk 10 feet (QC): 5 Walk 10ft-Uneven Surface(QC): 5 Walk 50ft with 2 Turns (QC): 5 Walk 150 ft (QC): 5 Does the Pt use WC or Scooter?: No Wheel 50 feet with 2 turns (QC: 9 Wheel 150 feet: 9 1 Step (curb) (QC): 5 4 Steps (QC): 5 12 Steps (QC): 9 Picking up an Object (QC): 5 OT [facility] Goals Associate Merchandise Planner Goals Time Frame: Sep 21, 2022 Eating (QC): 6 (not met) Oral Hygiene (QC): 6 (not met) Toileting Hygiene (QC): 6 (not met) Shower/Bathe Self (QC): 5 (not met) Upper Body Dressing (QC): 6 (not met) Lower Body Dressing (QC): 6 (not met) On/Off Footwear (QC): 6 (not met) Additional Goals: 1-Demonstrate ADL Tasks, 2-Verbalize Understanding, 3- ImproveStrength/Junior 1=Demonstrate adherence to instructed precautions during ADL tasks. 2=Patient will verbalize/demonstrate understanding of assistive devices/modifications for ADL. 3=Patient will improve strength/tolerance for activity to enable patient to perform ADL's. VASHTI DUARTE OT Aug 28, 2022 16:11
== END 2022-08-26 09:30 | disposition short-term general hospital (02) | DRG 559 ==
PROVIDERS: ADMIT Internal Medicine; ATTEND Internal Medicine
DX: S72.001D Fracture of unspecified part of neck of right femur, subsequent encounter for closed fracture with routine healing (principal); J18.9 Pneumonia, unspecified organism; J44.0 Chronic obstructive pulmonary disease with (acute) lower respiratory infection; D62 Acute posthemorrhagic anemia; R09.02 Hypoxemia; R06.89 Other abnormalities of breathing; G20 Parkinson's disease; I48.0 Paroxysmal atrial fibrillation; I11.0 Hypertensive heart disease with heart failure; I50.9 Heart failure, unspecified; I25.10 Atherosclerotic heart disease of native coronary artery without angina pectoris; R45.87 Impulsiveness; E78.00 Pure hypercholesterolemia, unspecified; M81.0 Age-related osteoporosis without current pathological fracture; R54 Age-related physical debility; F41.9 Anxiety disorder, unspecified; F32.A Depression, unspecified; R26.9 Unspecified abnormalities of gait and mobility; Z99.81 Dependence on supplemental oxygen; Z87.891 Personal history of nicotine dependence; Z79.01 Long term (current) use of anticoagulants; Z79.899 Other long term (current) drug therapy; Z88.2 Allergy status to sulfonamides; W01.0XXD Fall on same level from slipping, tripping and stumbling without subsequent striking against object, subsequent encounter; Y92.009 Unspecified place in unspecified non-institutional (private) residence as the place of occurrence of the external cause
CPT/HCPCS: 36415; 71045; 80053; 82805; 83605; 85007; 85025; 85027

== ENCOUNTER 2022-08-26 09:10 | Inpatient (IN) | payer MEDICARE, OTHER ==
[~2022-08-26] VITALS: Ht 170 cm; Wt 59.4 kg
[2022-08-26] MEDS ORDERED: MELATONIN 3 MG TABLET PO PRN ×2 (09:15→11:30)
[2022-08-26] MEDS ORDERED: PHARMACY TO DOSE IV SCH (09:15)
[2022-08-26] MEDS ORDERED: ONDANSETRON 4 MG/2 ML (SDV) Z0FRAN IV PRN ×2 (09:15→11:30)
[2022-08-26] MEDS ORDERED: ANTACID SUSP 30 ML UDC (MYLANTA) PO PRN ×2 (09:15→11:30)
[2022-08-26] MEDS ORDERED: NS IV 500 ML 500 ML IV PRN (09:15)
[2022-08-26] MEDS ORDERED: HYDROmorphone 2 MG/ML VIAL (DILAUDID) IV PRN (09:15)
[2022-08-26] MEDS ORDERED: LACTULOSE SYRUP 10GM/15ML (ENULOSE) 30ML UDC PO PRN ×2 (09:15→11:30)
[2022-08-26] MEDS ORDERED: BISACODYL 10 MG SUPP (DULCOLAX) PR PRN ×2 (09:15→11:30)
[2022-08-26] MEDS ORDERED: MILK OF MAGNESIA 400 MG/5 ML 30 ML UDC PO PRN ×2 (09:15→11:30)
[2022-08-26] MEDS ORDERED: ONDANSETRON 4 MG (ZOFRAN) ORAL DISSOLVE TAB PO PRN ×2 (09:15→11:30)
[2022-08-26] MEDS ORDERED: diphenhydrAMINE 25 MG TAB (BENADRYL) PO PRN ×2 (09:15→11:30)
[2022-08-26] MEDS ORDERED: CALCIUM CARBONATE 500 MG (TUMS) TAB.CHEW PO PRN ×2 (09:15→11:30)
[2022-08-26] MEDS ORDERED: polyethylene glycoL POWDER 17 GM (MIRALAX) PACK PO PRN ×2 (09:15→11:30)
[2022-08-26] MEDS ORDERED: diphenhydrAMINE 50 MG/ML INJ (BENADRYL) IVP PRN ×2 (09:15→11:30)
[2022-08-26] MEDS ORDERED: ACETAMINOPHEN 325 MG TABLET PO PRN ×2 (09:15→11:30)
[2022-08-26] MEDS ORDERED: DexMEDEtomidine 250 ML DRIP 250 ML IV SCH (09:15)
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
[2022-08-26] MEDS: NS IV 1000 ML 1,000 ML IV SCH (10:13)
[2022-08-26] MEDS: CEFEPIME INJECTION 1,000 MG in NS (IVPB) 50 ML IV SCH ×2 (10:14→18:21)
[2022-08-26] MEDS ORDERED: RT-ALBUTEROL SULF 2.5 MG/3 ML PRE-MIX VIAL INH PRN (10:15)
--- NOTE | 2022-08-26 10:26 | Tele-ICU Consult ---
Progress Note video rounds completed 87 y/o female admitted with SOB and cxr evidence of PNA Started on defipime and van and crowe cultured IMP; PNA PLAN: IV antibiotics, nebs Focused Exam Height, Weight, BMI Height: 5'7.00" Weight: 123lbs. 2.0oz. 55.285899ts; 19.51 BMI Method:Stated Results Results/Procedures Labs Patient resulted labs reviewed. SHERINE REY MD Aug 26, 2022 10:26
[2022-08-26] MEDS ORDERED: VANCOMYCIN 1250 MG/NS 250 ML PREMIX IV ONE (11:00)
[2022-08-26] MEDS ORDERED: guaiFENesin/CODEINE (ROBITUSSIN AC) 10ML UDC PO PRN (11:30)
[2022-08-26] MEDS ORDERED: SIMETHICONE 80 MG (MYLICON) CHEW PO PRN (11:30)
[2022-08-26] MEDS ORDERED: fentaNYL INJ 100 MCG/2 ML AMP IV PRN (11:30)
[2022-08-26] MEDS ORDERED: CYANOCOBALAMIN INJ 1000 MCG/ML IM NR (11:30)
[2022-08-26] MEDS ORDERED: ALPRAZolam 0.25 MG (XANAX) TAB PO PRN (11:30)
[2022-08-26] MEDS ORDERED: FLEET ENEMA ADULT 1 EA BTL PR PRN (11:30)
[2022-08-26] MEDS ORDERED: LOPERAMIDE 2 MG (IMODIUM) TABLET PO PRN (11:30)
[2022-08-26] MEDS ORDERED: DOCUSATE SODIUM 100 MG (COLACE) CAP PO PRN (11:30)
[2022-08-26] MEDS: IRON SUCROSE 200 MG/10 ML (VENOFER) VIAL IV SCH (13:19)
[2022-08-26] MEDS: SINEMET 25/100 (CARBIDOPA/LEVODOPA) TAB PO SCH ×3 (13:21→19:30)
[2022-08-26] MEDS: rOPINIRole 1 MG (REQUIP) TABLET PO SCH ×2 (13:21→20:58)
[2022-08-26] MEDS: APIXABAN 2.5 MG (ELIQUIS) TABLET PO SCH (20:56)
[2022-08-26] MEDS: AtorvaSTATin TABLET 10 MG TABLET PO SCH (20:57)
[2022-08-26] MEDS: FLECAINIDE 100 MG (TAMBOCOR) TAB PO SCH (20:59)
[2022-08-26] MEDS ORDERED: SENNOSIDES 8.6 MG (SENOKOT) TAB PO SCH (21:00)
[2022-08-26] MEDS: SENNOSIDES 8.6 MG (SENOKOT) TAB PO SCH (21:01)
[2022-08-26] MEDS: DOCUSATE SODIUM 100 MG (COLACE) CAP PO SCH (21:01)
[2022-08-27] MEDS: NS IV 1000 ML 1,000 ML IV SCH (00:48)
[2022-08-27] MEDS: CEFEPIME INJECTION 1,000 MG in NS (IVPB) 50 ML IV SCH ×3 (01:47→17:56)
[2022-08-27 03:59] LABS: BASOPHILS % (AUTO) 1 % (0-10); EOSINOPHILS # (AUTO) 0.3 10^3/uL (0.0-0.3); EOSINOPHILS % (AUTO) 5 % (0-10); HEMATOCRIT 31 % (35-52); HEMOGLOBIN 9.5 g/dL (11.5-16.0); LYMPHOCYTES # (AUTO) 0.8 10^3/uL (1.0-4.0); LYMPHOCYTES % (AUTO) 16 % (12-44); MEAN CORPUSCULAR HEMOGLOBIN 28 pg (25-34); MEAN CORPUSCULAR HGB CONC 31 g/dL (32-36); MEAN CORPUSCULAR VOLUME 93 fL (80-99); MEAN PLATELET VOLUME 10.5 fL (9.0-12.2); MONOCYTES # (AUTO) 0.8 10^3/uL (0.0-1.0); MONOCYTES % (AUTO) 15 % (0-12); NEUTROPHILS # (AUTO) 3.3 10^3/uL (1.8-7.8); NEUTROPHILS % (AUTO) 64 % (42-75); PLATELET COUNT 182 10^3/uL (130-400); WHITE BLOOD COUNT 5.2 10^3/uL (4.3-11.0)
[2022-08-27 04:13] LABS: ALBUMIN 2.7 GM/DL (3.2-4.5); POTASSIUM 3.5 MMOL/L (3.6-5.0)
[2022-08-27 04:14] LABS: CALCIUM 8.3 MG/DL (8.5-10.1)
[2022-08-27 04:16] LABS: TOTAL PROTEIN 5.5 GM/DL (6.4-8.2)
[2022-08-27 04:19] LABS: CREATININE SERUM 0.6 MG/DL (0.60-1.30); PHOSPHORUS 2.8 MG/DL (2.3-4.7)
[2022-08-27 04:22] LABS: MAGNESIUM 1.6 MG/DL (1.6-2.4)
[2022-08-27 05:22] LABS: ABG BASE EXCESS 8.8 MMOL/L (-2.5-2.5); ABG OXYGEN SATURATION 96 % (94-100); ABG PCO2 54 MMHG (35-45); ABG PH 7.41 (7.37-7.43); ABG PO2 74 MMHG (79-93); ABG TCO2 35.4 MMOL/L (21.0-31.0)
[2022-08-27 05:23] LABS: INSPIRED O2 21 NC; PATIENT TEMP 36.5; VENTILATOR NO
[2022-08-27] MEDS ORDERED: KCL 20 MEQ TAB (K-DUR) PO ONE (05:45)
[2022-08-27] MEDS: MAGNESIUM 1 GM/100 ML IVPB 100 ML IV SCH ×4 (05:49→09:23)
[2022-08-27] MEDS ORDERED: POTASSIUM CL 10MEQ/50ML IVPB 50 ML IV SCH (06:00)
[2022-08-27] MEDS ORDERED: MAGNESIUM 1 GM/100 ML IVPB 100 ML IV SCH (06:00)
[2022-08-27] MEDS ORDERED: KCL 20 MEQ TAB (K-DUR) PO SCH (06:00)
[2022-08-27] MEDS: CYANOCOBALAMIN 1,000 MCG (VITAMIN B-12) TABLET PO SCH (06:07)
[2022-08-27] MEDS: SINEMET 25/100 (CARBIDOPA/LEVODOPA) TAB PO SCH ×5 (06:07→18:25)
[2022-08-27] MEDS: MULTIVIT W/MINERALS TAB (THERAGRAN M) PO SCH (06:07)
[2022-08-27] MEDS: DOCUSATE SODIUM 100 MG (COLACE) CAP PO SCH ×2 (08:33→20:54)
[2022-08-27] MEDS: FLECAINIDE 100 MG (TAMBOCOR) TAB PO SCH ×2 (08:33→20:53)
[2022-08-27] MEDS: rOPINIRole 1 MG (REQUIP) TABLET PO SCH ×3 (08:33→20:53)
[2022-08-27] MEDS: SENNOSIDES 8.6 MG (SENOKOT) TAB PO SCH ×2 (08:34→20:54)
[2022-08-27] MEDS: APIXABAN 2.5 MG (ELIQUIS) TABLET PO SCH ×2 (08:34→20:54)
[2022-08-27] MEDS: SERTRALINE 50 MG (ZOLOFT) TABLET PO SCH (08:34)
--- NOTE | 2022-08-27 08:35 | Diagnostic Imaging Report ---
INDICATION: Followup dyspnea. TECHNIQUE: Single view chest 4:24 AM. CORRELATION STUDY: 08/26/2022 FINDINGS: Heart size and mediastinum are enlarged and prominent. Loop recorder device, unchanged. Vascular slightly increased. Mildly prominent interstitial markings reflect mild edema. No infiltrate. Question trace effusions. Prior surgical change left humeral head with a chronic unhealed impacted right humeral head and neck fracture. IMPRESSION: 1. Heart size and vasculature appear slightly more prominent suggesting mild edema. Dictated by: Dictated on workstation # [id number]
[2022-08-27] MEDS: amLODIPine 5 MG (NORVASC) TAB PO SCH (08:38)
[2022-08-27] MEDS ORDERED: HYDROcodone/APAP 5 MG/325 MG (LORTAB) TAB PO PRN (09:45)
[2022-08-27] MEDS ORDERED: FUROSEMIDE 40 MG/4 ML INJ (LASIX) IVP ONE (09:45)
[2022-08-27] MEDS ORDERED: VANCOMYCIN 750 MG/NS 250 ML IVPB IV SCH ×2 (11:00)
--- NOTE | 2022-08-27 11:36 | Progress Note ---
MARILEE STACY 08/27/22 1136: Subjective Date Seen by a Provider: Aug 27, 2022 Time Seen by a Provider: 08:15 Subjective/Events-last exam Pt seen at bedside. She says she's feeling ok. She denies any CP, SOB, or difficulty breathing. No cough/congestion, fever, or chills. She's on nasal cannula satting 95% on 3L currently which was her baseline in IRU. She says she has a mild headache but otherwise no complaints. She ate a little yesterday. She's on a wick catheter and passing gas. Nursing reports patient did get confused last night after receiving oxycodone. She is alert and oriented at this time. Objective Exam Last Set of Vital Signs Vital Signs Date Time Temp Pulse Resp B/P (MAP) Pulse Ox O2 Delivery O2 Flow Rate FiO2 08/27/22 11:15 75 08/27/22 10:00 19 111/62 (78) 92 Nasal Cannula 3.00 08/27/22 07:55 36.6 08/26/22 09:57 32 Capillary Refill : I&O Intake and Output 08/27/22 00:00 Intake Total 775 ml Output Total 300 ml Balance 475 ml Intake Oral 475 ml IV Total 300 ml Output Urine Total 300 ml # Voids 3 Daily Weight Change No General: Alert, Oriented X3, No Acute Distress HEENT: PERRLA, EOMI Lungs: Clear to Auscultation, Normal Air Movement Heart: Regular Rate, Normal S1, Normal S2, Other (II/ holosystolic murmur best heard over mitral/tricuspid areas.) Abdomen: Normal Bowel Sounds, Soft, No Tenderness Extremities: Other (Trace edema.) Skin: No Rashes, No Breakdown Neuro: Normal Speech Psych/Mental Status: Mental Status NL, Mood NL Results Lab Laboratory Tests 08/27/22 03:22: White Blood Count 5.2, Red Blood Count 3.34L, Hemoglobin 9.5L, Hematocrit 31L, Mean Corpuscular Volume 93, Mean Corpuscular Hemoglobin 28, Mean Corpuscular Hemoglobin Concent 31L, Red Cell Distribution Width 14.4, Platelet Count 182, Mean Platelet Volume 10.5, Immature Granulocyte % (Auto) 0, Neutrophils (%) (Auto) 64, Lymphocytes (%) (Auto) 16, Monocytes (%) (Auto) 15H, Eosinophils (%) (Auto) 5, Basophils (%) (Auto) 1, Neutrophils # (Auto) 3.3, Lymphocytes # (Auto) 0.8L, Monocytes # (Auto) 0.8, Eosinophils # (Auto) 0.3, Basophils # (Auto) 0.0, Immature Granulocyte # (Auto) 0.0, Sodium Level 140, Potassium Level 3.5L, Chloride Level 103, Carbon Dioxide Level 27, Anion Gap 10, Blood Urea Nitrogen 13, Creatinine 0.60, Estimat Glomerular Filtration Rate 88, BUN/Creatinine Ratio 22, Glucose Level 96, Calcium Level 8.3L, Corrected Calcium 9.3, Phosphorus Level 2.8, Magnesium Level 1.6, Total Bilirubin 1.0, Aspartate Amino Transf (AST/SGOT) 16, Alanine Aminotransferase (ALT/SGPT) 11, Alkaline Phosphatase 49, Total Protein 5.5L, Albumin 2.7L 08/27/22 04:50: Blood Gas Puncture Site R BRACH, Blood Gas Patient Temperature 36.5, Arterial Blood pH 7.41, Arterial Blood Partial Pressure CO2 54H, Arterial Blood Partial Pressure O2 74L, Arterial Blood HCO3 34H, Arterial Blood Total CO2 35.4H, Arterial Blood Oxygen Saturation 96, Arterial Blood Base Excess 8.8H, Bhavesh Test NA, Blood Gas Ventilator Setting NO, Blood Gas Inspired Oxygen 21 NC Microbiology 08/26/22 MRSA Screen - Final, Complete MRSA not isolated Radiology NAME: [facility]RAM[facility] REC#: [id number] PT STATUS: ADM IN : 1935 PHYSICIAN: MARYJANE TAPIA DO ADMIT DATE: 08/26/22 Signed Date of Exam:08/27/22 CHEST 1 VIEW, AP/PA ONLY INDICATION: Followup dyspnea. TECHNIQUE: Single view chest 4:24 AM. CORRELATION STUDY: 08/26/2022 FINDINGS: Heart size and mediastinum are enlarged and prominent. Loop recorder device, unchanged. Vascular slightly increased. Mildly prominent interstitial markings reflect mild edema. No infiltrate. Question trace effusions. Prior surgical change left humeral head with a chronic unhealed impacted right humeral head and neck fracture. IMPRESSION: 1. Heart size and vasculature appear slightly more prominent suggesting mild edema. Dictated by: Dictated on workstation # [id number] Dict: 08/27/22 08 Trans: 08/27/221126 CV [id number] Interpreted by: SP PINZON DO Electronically signed by: SP PINZON DO 08/27/22 1127 Assessment/Plan Assessment/Plan Assess & Plan/Chief Complaint Assessment: This is an 87 y/o female admitted to the ICU from inpatient rehab for acute altered mental status 2/2 suspected pneumonia/sepsis and acute hypercarbic respiratory distress now on hospital day #1. Hospital acquired pneumonia vs CHF exacerbation Acute hypercarbic respiratory distress Respiratory acidosis - compensated Hypoxia - chronic -Currently on 3 L N.C, satting mid to low 90s without any distress/symptoms -Wears N.C at home during nighttime with O2 concentrator, unsure of baseline flow rate. -CXR on admit showed patchy right opacities concerning for PNA but CXR this AM showed increased (mild) edema, increased interstitial markings, possible small bilateral effusion without mention for opacities or concern for PNA. -WBC is 5.2 today (08/27), has been afebrile -AB.41/54/74/34 - Primary metabolic alkalosis (likely chronic 2/2 CHF) with secondary respiratory acidosis 2/2 CHF exacerbation vs PNA -CHF exacerbation seems more likely given patient's comorbidities and overall clinical picture; patient could tolerate lasix administration -Could recheck BNP Right proximal femur fracture - repaired -Pain control: PO oxy, APAP PRN -Hgb 12.7 --> 13.1 --> 11.3 --> 9.7 (08/24) --> 9.5 (08/26) Coags WNL -Supplementing Fe. -Normotensive, VSS. PAF -On Apixiban 2.5mg BID -On flecainide - continue -NSR on exam/monitor today CHF CAD HTN - new -Recent Echo with EF of 50-55%, pulm artery pressures 35-40mmHg, severe concentric LVH -Consult cardiology - appreciate recs. -Resuming amlodipine today. -Could benefit to continue lasix Parkinson's Disease -Carbidopa/levodopa 25-100mg 1.5 tabs QID at home - continue -Ropinriole 1.5mg daily - continue FEN/GI -Maintenance fluids - Will DC today; encourage PO. UOP is up since yesterday to 0.42 ml/kg/hr. -Regular diet -Replace electrolytes PRN -Bowel regimen, protonix DVT Prophylaxis: SCDs, apixiban. Dispo: Stable. Will transfer to floor today with hopeful move toward IRU tomorrow. MARYJANE TAPIA DO 08/28/22 0509: Supervisory-Addendum Brief Verification & Attestation Participated in pt care: history, MDM, physical Personally performed: exam, history, MDM, supervision of care Care discussed with: Medical Student Procedures: n/a Results interpretation: Verified all documentation Verification and Attestation of Medical Student E/M Service A medical student performed and documented this service in my presence. I reviewed and verified all information documented by the medical student and made modifications to such information, when appropriate. I personally performed the physical exam and medical decision making. Maryjane Tapia, Aug 28, 2022,05:08 MARILEE STACY Aug 27, 2022 11:36 MARYJANE TAPIA DO Aug 28, 2022 05:09
[2022-08-27 12:05] VITALS: BP 116/72
--- NOTE | 2022-08-27 14:08 | Physical Therapy Evaluation ---
PT Evaluation-General Medical Diagnosis Admission Date Aug 26, 2022 at 09:10 Medical Diagnosis: pneumonia Onset Date: Aug 26, 2022 Therapy Diagnosis Therapy Diagnosis: generalized weakness/debility Height/Weight Height (Feet): 5 Height (Inches): 7.00 Weight (Pounds): 123 Weight (Ounces): 2.0 Precautions Precautions/Isolations: Fall Prevention, Standard Precautions Weight Bear Status Right Lower Extremity: Right Weight Bearing/Tolerated Left Lower Extremity: Left Full Weight Bearing Referral Physician: Andrew Reason for Referral: Evaluation/Treatment Medical History Pertinent Medical History: Atrial Fib, Arthritis, CAD, CVA, HTN, [place], Parkinson's Additional Medical History recent fall at home resulting in right hip fracture with repair Current History transfer from ARU to ICU due to hypoxia and hypercapneic respiratory failure Reviewed History: Yes Social History Home: Single Level Current Living Status: Spouse Prior Prior Level of Function SCALE: Activities may be completed with or without assistive devices. 9-Gyzqlixzfr-xitqptr completes the activity by him/herself with no assistance from a helper. 5-Set-up or Clean-up Assistance-helper sets up or cleans up; patient completes activity. Pharr assists only prior to or following the activity. 4-Supervision or Touching Assistance-helper provides verbal cues and/or touching/steadying and/or contact guard assistance as patient completes activity. Assistance may be provided throughout the activity or intermittently. 3-Partial/Moderate Assistance-helper does LESS THAN HALF the effort. Pharr lifts, holds or supports trunk or limbs, but provides less than half the effort. 2-Substantial/Maximal Assistance-helper does MORE THAN HALF the effort. Pharr lifts or holds trunk or limbs and provides more than half the effort. 4-Rmfllxvxi-hnpoks does ALL the effort. Patient does none of the effort to complete the activity. Or, the assistance of 2 or more helpers is required for the patient to complete the activity. If activity was not attempted, code reason: 7-Patient Refused. 9-Not Applicable-not attempted and the patient did not perform the activity before the current illness, exacerbation or injury. 10-Not Attempted due to Environmental Limitations-(lack of equipment, weather restraints, etc.). 88-Not Attempted due to Medical Conditions or Safety Concerns. Bed Mobility: 6 Transfers (B,C,W/C): 6 Gait: 6 Indoor Mobility (Ambulation): Independent Prior Devices Use: Walker PT Evaluation-Current Subjective Patient is alert and oriented. Family present. Agrees to PT. Objective Patient Orientation: Person, Time, Situation Attachments: Oxygen, Batista Catheter ROM/Strength ROM Lower Extremities bilateral LE WFL Strength Lower Extremities 3-/5 grossly bilateral LE all planes Integumentary/Posture Integumentary refer to nursing notes Bladder Incontinence: Yes Posture kyphotic Neuromuscular (Tone, Coordination, Reflexes) Parkinson's/slightly diminished coordination Sensory Vision: Functional Hearing: Functional Transfers Lying to Sitting/Side of Bed(Q: 3 Sit to Stand (QC): 3 Chair/Ovh-cb-Vttvm Xfer(QC): 3 Gait Mode of Locomotion: Walk Anticipated Mode of Locomotion: Walk Walk 10 feet (QC): 3 Walk 50 ft with 2 Turns(QC): 88 Walk 150 ft (QC): 88 Distance: 10' Gait Assistive Device: FWW Comments/Gait Description slow, shuffle gait sequence Balance Sitting Static: Normal Sitting Dynamic: Normal Standing Static: Fair Standing Dynamic: Fair Assessment/Needs Patient will benefit from skilled PT to address functional strength and mobility to improve current LOF. Patient much improved with cognition and mobility on this date vs. last week when this PT evaluated her. Patient requires mod assist with all mobility Rehab Potential: Fair PT Skilled Nursing Goals Supply Chain Technician Goals PT Supply Chain Technician Goals Time Frame: Sep 22, 2022 Roll Left & Right (QC): 4 Sit to Lying (QC): 4 Lying-Sitting on Side/Bed(QC): 4 Sit to Stand (QC): 4 Chair/Xyh-aj-Oewgm Xfer(QC): 4 Toilet Transfer (QC): 4 Walk 10 feet (QC): 4 Walk 50ft with 2 Turns (QC): 4 Walk 150 ft (QC): 4 PT Plan Problem List Problem List: Activity Tolerance, Functional Strength, Safety, Balance, Gait, Transfer, Bed Mobility Treatment/Plan Treatment Plan: Continue Plan of Care Treatment Plan: Bed Mobility, Education, Functional Activity Junior, Functional Strength, Gait, Safety, Therapeutic Exercise, Transfers Treatment Duration: Sep 22, 2022 Frequency: 11 times per week Estimated Hrs Per Day: .5 hour per day Patient and/or Family Agrees t: Yes Time Time In: 1320 Time Out: 1336 DATE: Aug 27, 2022 Total Billed Treatment Time: 16 Total Billed Treatment 1 visit EVMod 16 min JUAN MANUEL LORENZO PT Aug 27, 2022 14:08
--- NOTE | 2022-08-27 15:11 | Occupational Therapy Eval ---
OT Evaluation-General/PLF Medical Diagnosis Admission Date Aug 26, 2022 at 09:10 Medical Diagnosis: pneumonia Onset Date: Aug 26, 2022 Therapy Diagnosis Therapy Diagnosis: WEAKNESS Height/Weight Height (Feet): 5 Height (Inches): 7.00 Weight (Pounds): 123 Weight (Ounces): 2.0 Precautions Precautions/Isolations: Fall Prevention, Standard Precautions Weight Bear Status Weight Bearing Restriction: Weight Bearing/Tolerated Location Restriction: R LE Referral Physician: Andrew Referral Reason: Activity Tolerance, Self Care, Evaluation/Treatment, Strengthening/ROM Medical History Pertinent Medical History: Atrial Fib, Arthritis, CAD, CVA, HTN, [place], Parkinson's Current History HOSPITAL COURSE FROM ACUTE TO ARU TO ICU TO MEDICAL FLOOR. HAP, FALL IN ARU d/t DREAM AND ATTEMPT TO EXIT BED Social History Home: Single Level Current Living Status: Spouse ADL-Prior Level of Function SCALE: Activities may be completed with or without assistive devices. 0-Dyicogjcsa-elnzvvr completes the activity by him/herself with no assistance from a helper. 5-Set-up or Clean-up Assistance-helper sets up or cleans up; patient completes activity. Ewing assists only prior to or following the activity. 4-Supervision or Touching Assistance-helper provides verbal cues and/or touching/steadying and/or contact guard assistance as patient completes activity. Assistance may be provided throughout the activity or intermittently. 3-Partial/Moderate Assistance-helper does LESS THAN HALF the effort. Ewing lifts, holds or supports trunk or limbs, but provides less than half the effort. 2-Substantial/Maximal Assistance-helper does MORE THAN HALF the effort. Ewing lifts or holds trunk or limbs and provides more than half the effort. 6-Tjgxlsncs-etqvnj does ALL the effort. Patient does none of the effort to complete the activity. Or, the assistance of 2 or more helpers is required for the patient to complete the activity. If activity was not attempted, code reason: 7-Patient Refused. 9-Not Applicable-not attempted and the patient did not perform the activity before the current illness, exacerbation or injury. 10-Not Attempted due to Environmental Limitations-(lack of equipment, weather restraints, etc.). 88-Not Attempted due to Medical Conditions or Safety Concerns. Self Care: Independent Functional Cognition: Independent Drive Self: Yes OT Current Status Subjective Up and happily agrees to OT Mental Status/Objective Patient Orientation: Person, Place, Time, Situation Attachments: Other-See Comments (Removed PUR WICK) Current Glasses/Contacts: Yes Upper Extremity ROM BUE ROM WNLs Upper Extremity Strength BUE -4/5 strength, improved in MMT and duration of performances ADL-Treatment Eating (QC): 6 Oral Hygiene (QC): 5 Shower/Bathe Self (QC): 88 Upper Body Dressing (QC): 4 Lower Body Dressing (QC): 2 On/Off Footwear (QC): 2 Toileting Hygiene (QC): 2 Other Treatments Hair washing and grooming moderate assist Education OT Patient Education: Correct positioning, Modified ADL techniques, Progress toward Goal/Update tx plan, Purpose of tx/functional activities, Reviewed precautions, Rehab process, Safety issues, Transfer techniques, Use of adapted equipment Teaching Recipient: Patient, Family Teaching Methods: Demonstration, Discussion Response to Teaching: Verbalize Understanding, Reinforcement Needed OT Learn To Swim Instructor Goals Mcc Goals Eating (QC): 6 Oral Hygiene (QC): 6 Toileting Hygiene (QC): 4 Shower/Bathe Self (QC): 4 Upper Body Dressing (QC): 5 Lower Body Dressing (QC): 4 On/Off Footwear (QC): 4 1=Demonstrate adherence to instructed precautions during ADL tasks. 2=Patient will verbalize/demonstrate understanding of assistive devices/modifications for ADL. 3=Patient will improve strength/tolerance for activity to enable patient to perform ADL's. OT Education/Plan Problem List/Assessment Assessment: Decreased Activ Tolerance, Decreased UE Strength, Impaired Coordination, Impaired Funct Balance, Impaired Self-Care Skills Discharge Recommendations Plan/Recommendations: Continue POC Therapy Discharge Recommendati: Post Acute OT Treatment Plan/Plan of Care Treatment,Training & Education: Yes Patient would benefit from OT for education, treatment and training to promote independence in ADL's, mobility, safety and/or upper extremity function for ADL's. Plan of Care: ADL Retraining, Functional Mobility, Group Exercise/Act as Ind, UE Funct Exercise/Act Treatment Duration: Sep 08, 2022 Frequency: 3 times per week (3-5 times per week) Estimated Hrs Per Day: .25 hour per day Agreement: Yes Rehab Potential: Fair Time Start Time: 13:21 Stop Time: 13:44 DATE: Aug 27, 2022 Total Time Billed (hr/min): 23 Billed Treatment Time EVM, ADL 1 23 min ANGY MALCOLM OT Aug 27, 2022 15:11
[2022-08-27 16:34] VITALS: BP 110/74
[2022-08-27 19:34] VITALS: BP 120/72
[2022-08-27] MEDS: AtorvaSTATin TABLET 10 MG TABLET PO SCH (20:54)
[2022-08-27] MEDS ORDERED: HALOPERIDOL 2 MG (HALDOL) TABLET PO PRN (21:15)
[2022-08-27] MEDS ORDERED: LORazepam INJ 2 MG/ML (ATIVAN) VIAL IVP PRN (21:15)
[2022-08-27] MEDS ORDERED: HALOPERIDOL 5 MG/ML (HALDOL) VIAL IM PRN (21:15)
[2022-08-27] MEDS ORDERED: LORazepam 0.5 MG (ATIVAN) TABLET PO PRN (21:15)
[2022-08-27] MEDS ORDERED: OLANZapine 2.5 MG (ZyPREXA) TAB PO PRN (21:45)
[2022-08-28 00:22] VITALS: BP 154/82
[2022-08-28] MEDS: CEFEPIME INJECTION 1,000 MG in NS (IVPB) 50 ML IV SCH ×2 (02:07→10:22)
[2022-08-28 04:14] VITALS: BP 176/91
[2022-08-28 05:44] LABS: BASOPHILS % (AUTO) 1 % (0-10); EOSINOPHILS # (AUTO) 0.4 10^3/uL (0.0-0.3); EOSINOPHILS % (AUTO) 6 % (0-10); HEMATOCRIT 33 % (35-52); HEMOGLOBIN 10.3 g/dL (11.5-16.0); LYMPHOCYTES % (AUTO) 14 % (12-44); MEAN CORPUSCULAR HEMOGLOBIN 29 pg (25-34); MEAN CORPUSCULAR HGB CONC 31 g/dL (32-36); MEAN CORPUSCULAR VOLUME 93 fL (80-99); MEAN PLATELET VOLUME 10.1 fL (9.0-12.2); MONOCYTES # (AUTO) 0.9 10^3/uL (0.0-1.0); MONOCYTES % (AUTO) 13 % (0-12); NEUTROPHILS # (AUTO) 4.5 10^3/uL (1.8-7.8); NEUTROPHILS % (AUTO) 66 % (42-75); PLATELET COUNT 227 10^3/uL (130-400); WHITE BLOOD COUNT 6.7 10^3/uL (4.3-11.0)
[2022-08-28 06:06] LABS: ALBUMIN 2.9 GM/DL (3.2-4.5); POTASSIUM 3.7 MMOL/L (3.6-5.0)
[2022-08-28 06:07] LABS: CALCIUM 8.7 MG/DL (8.5-10.1)
[2022-08-28 06:08] LABS: TOTAL PROTEIN 5.8 GM/DL (6.4-8.2)
[2022-08-28 06:10] LABS: BILIRUBIN,TOTAL 0.9 MG/DL (0.1-1.0)
[2022-08-28 06:12] LABS: CREATININE SERUM 0.65 MG/DL (0.60-1.30)
[2022-08-28 06:15] LABS: MAGNESIUM 1.8 MG/DL (1.6-2.4)
[2022-08-28] MEDS: SINEMET 25/100 (CARBIDOPA/LEVODOPA) TAB PO SCH ×2 (06:24→10:21)
[2022-08-28] MEDS: MULTIVIT W/MINERALS TAB (THERAGRAN M) PO SCH (06:24)
[2022-08-28] MEDS: CYANOCOBALAMIN 1,000 MCG (VITAMIN B-12) TABLET PO SCH (06:24)
[2022-08-28 08:18] VITALS: BP 170/79
[2022-08-28] MEDS: amLODIPine 5 MG (NORVASC) TAB PO SCH (08:58)
[2022-08-28] MEDS: SENNOSIDES 8.6 MG (SENOKOT) TAB PO SCH (08:58)
[2022-08-28] MEDS: rOPINIRole 1 MG (REQUIP) TABLET PO SCH (08:58)
[2022-08-28] MEDS: FLECAINIDE 100 MG (TAMBOCOR) TAB PO SCH (08:58)
[2022-08-28] MEDS: APIXABAN 2.5 MG (ELIQUIS) TABLET PO SCH (08:59)
[2022-08-28] MEDS: SERTRALINE 50 MG (ZOLOFT) TABLET PO SCH (08:59)
[2022-08-28] MEDS: DOCUSATE SODIUM 100 MG (COLACE) CAP PO SCH (08:59)
[2022-08-28] MEDS: IRON SUCROSE 200 MG/10 ML (VENOFER) VIAL IV SCH (08:59)
--- NOTE | 2022-08-28 09:05 | Discharge Summary ---
Diagnosis/Chief Complaint Date of Admission Aug 26, 2022 at 09:10 Date of Discharge Discharge Date: Aug 28, 2022 Discharge Diagnosis Assess & Plan/Chief Complaint Assessment: This is an 87 y/o female admitted to the ICU from inpatient rehab for acute altered mental status 2/2 suspected pneumonia/sepsis and acute hypercarbic respiratory distress now on hospital day #1. Hospital acquired pneumonia vs CHF exacerbation Acute hypercarbic respiratory distress Respiratory acidosis - compensated Hypoxia - chronic -Currently on 3 L N.[place], satting mid to low 90s without any distress/symptoms -Wears N.C at home during nighttime with O2 concentrator, unsure of baseline flow rate. -CXR on admit showed patchy right opacities concerning for PNA but CXR this AM showed increased (mild) edema, increased interstitial markings, possible small bilateral effusion without mention for opacities or concern for PNA. -WBC is 5.2 today (08/27), has been afebrile -AB.41/54/74/34 - Primary metabolic alkalosis (likely chronic 2/2 CHF) with secondary respiratory acidosis 2/2 CHF exacerbation vs PNA -CHF exacerbation seems more likely given patient's comorbidities and overall clinical picture; patient could tolerate lasix administration -Could recheck BNP Right proximal femur fracture - repaired -Pain control: PO oxy, APAP PRN -Hgb 12.7 --> 13.1 --> 11.3 --> 9.7 (08/24) --> 9.5 (08/26) Coags WNL -Supplementing Fe. -Normotensive, VSS. PAF -On Apixiban 2.5mg BID -On flecainide - continue -NSR on exam/monitor today CHF CAD HTN - new -Recent Echo with EF of 50-55%, pulm artery pressures 35-40mmHg, severe concentric LVH -Consult cardiology - appreciate recs. -Resuming amlodipine today. -Could benefit to continue lasix Parkinson's Disease -Carbidopa/levodopa 25-100mg 1.5 tabs QID at home - continue -Ropinriole 1.5mg daily - continue FEN/GI -Maintenance fluids - Will DC today; encourage PO. UOP is up since yesterday to 0.42 ml/kg/hr. -Regular diet -Replace electrolytes PRN -Bowel regimen, protonix DVT Prophylaxis: SCDs, apixiban. Dispo: Stable. Will transfer to floor today with hopeful move toward IRU tomorrow. Discharge Summary Discharge Physical Examination Allergies: Coded Allergies: Sulfa (Sulfonamide Antibiotics) (Verified Allergy, Unknown, hives, 11/16/19) Vitals & I&Os Vital Signs Date Time Temp Pulse Resp B/P (MAP) Pulse Ox O2 Delivery O2 Flow Rate FiO2 08/28/22 10:30 36.6 77 18 170/79 94 Nasal Cannula 4.00 08/26/22 09:57 32 General Appearance: Alert, Oriented X3, Cooperative Respiratory: Clear to Auscultation Cardiovascular: Regular Rate Psych/Mental Status: Mental Status NL Hospital Course Was the Problem List Reviewed?: Yes Hospital Course: This is an 87 y/o female who was admitted to the inpatient rehab unit s/p right hip fracture internal fixation who presented to ICU after being found confused/lethargic and in respiratory distress in inpatient rehab. Her history is significant for A-fib/sinus-node dysfunction, CHF, and CAD. Upon this change she was admitted to the ICU and initial workup with ABG, CXR, and labs suggested hypercarbic acute respiratory failure as the cause for the acute change. She was subsequently started on broad-spectrum antibiotics to cover for hospital acquired pneumonia. Over the first night in the ICU her oxygen needs decreased and she stabilized. On the morning of day 1 she was feeling significantly better. Blood cultures were negative and her WBC was never elevated. She was moved to med-surg unit given her stability and worked with PT/OT and advanced her diet. On hospital day 2 she was feeling more improved and decision was made to transfer her back to inpatient rehab unit to continue intensive therapy. Interval/Progress HD #2 Pt seen at bedside. She is drinking her coffee. She says she's feeling much better and has no complaints. She has taken her nasal cannula off when adjusting and says she does not feel SOB/SOA. She denies CP, N/V. She's getting up with help but still having some pain. She felt confused again last night and says that it's when she wakes up she feels disoriented so she said when she goes to rehab again "she may try not to sleep so that can't happen." She is urinating without issue and is having BMs. Labs (last 24 hrs) Laboratory Tests 08/27/22 03:22: White Blood Count 5.2, Red Blood Count 3.34L, Hemoglobin 9.5L, Hematocrit 31L, Mean Corpuscular Volume 93, Mean Corpuscular Hemoglobin 28, Mean Corpuscular Hemoglobin Concent 31L, Red Cell Distribution Width 14.4, Platelet Count 182, Mean Platelet Volume 10.5, Immature Granulocyte % (Auto) 0, Neutrophils (%) (Auto) 64, Lymphocytes (%) (Auto) 16, Monocytes (%) (Auto) 15H, Eosinophils (%) (Auto) 5, Basophils (%) (Auto) 1, Neutrophils # (Auto) 3.3, Lymphocytes # (Auto) 0.8L, Monocytes # (Auto) 0.8, Eosinophils # (Auto) 0.3, Basophils # (Auto) 0.0, Immature Granulocyte # (Auto) 0.0, Sodium Level 140, Potassium Level 3.5L, Chloride Level 103, Carbon Dioxide Level 27, Anion Gap 10, Blood Urea Nitrogen 13, Creatinine 0.60, Estimat Glomerular Filtration Rate 88, BUN/Creatinine Ratio 22, Glucose Level 96, Calcium Level 8.3L, Corrected Calcium 9.3, Phosphorus Level 2.8, Magnesium Level 1.6, Total Bilirubin 1.0, Aspartate Amino Transf (AST/SGOT) 16, Alanine Aminotransferase (ALT/SGPT) 11, Alkaline Phosphatase 49, Total Protein 5.5L, Albumin 2.7L 08/27/22 04:50: Blood Gas Puncture Site R BRACH, Blood Gas Patient Temperature 36.5, Arterial Blood pH 7.41, Arterial Blood Partial Pressure CO2 54H, Arterial Blood Partial Pressure O2 74L, Arterial Blood HCO3 34H, Arterial Blood Total CO2 35.4H, Arterial Blood Oxygen Saturation 96, Arterial Blood Base Excess 8.8H, Bhavesh Test NA, Blood Gas Ventilator Setting NO, Blood Gas Inspired Oxygen 21 NC 08/28/22 05:34: White Blood Count 6.7, Red Blood Count 3.59L, Hemoglobin 10.3L, Hematocrit 33L, Mean Corpuscular Volume 93, Mean Corpuscular Hemoglobin 29, Mean Corpuscular Hemoglobin Concent 31L, Red Cell Distribution Width 14.6H, Platelet Count 227, Mean Platelet Volume 10.1, Immature Granulocyte % (Auto) 0, Neutrophils (%) (Auto) 66, Lymphocytes (%) (Auto) 14, Monocytes (%) (Auto) 13H, Eosinophils (%) (Auto) 6, Basophils (%) (Auto) 1, Neutrophils # (Auto) 4.5, Lymphocytes # (Auto) 1.0, Monocytes # (Auto) 0.9, Eosinophils # (Auto) 0.4H, Basophils # (Auto) 0.0, Immature Granulocyte # (Auto) 0.0, Sodium Level 141, Potassium Level 3.7, Chloride Level 102, Carbon Dioxide Level 29, Anion Gap 10, Blood Urea Nitrogen 15, Creatinine 0.65, Estimat Glomerular Filtration Rate 86, BUN/Creatinine Ratio 23, Glucose Level 98, Calcium Level 8.7, Corrected Calcium 9.6, Magnesium Level 1.8, Total Bilirubin 0.9, Aspartate Amino Transf (AST/SGOT) 16, Alanine Aminotransferase (ALT/SGPT) 13, Alkaline Phosphatase 52, Total Protein 5.8L, Albumin 2.9L Microbiology 08/26/22 Blood Culture - Preliminary, Resulted No growth 08/26/22 MRSA Screen - Final, Complete MRSA not isolated Pending Labs Microbiology Date/Time Source Procedure Growth Status 08/26/22 09:45 Peripheral Iv/Heplock Blood Culture - Preliminary No growth Resulted 08/26/22 09:43 Peripheral Rt Ac Blood Culture - Preliminary No growth Resulted 08/26/22 09:30 Nasal MRSA Screen - Final MRSA not isolated Complete Laboratory Tests 08/27/22 03:22: White Blood Count 5.2, Red Blood Count 3.34, Hemoglobin 9.5, Hematocrit 31, Mean Corpuscular Volume 93, Mean Corpuscular Hemoglobin 28, Mean Corpuscular Hemoglobin Concent 31, Red Cell Distribution Width 14.4, Platelet Count 182, Mean Platelet Volume 10.5, Immature Granulocyte % (Auto) 0, Neutrophils (%) (Auto) 64, Lymphocytes (%) (Auto) 16, Monocytes (%) (Auto) 15, Eosinophils (%) (Auto) 5, Basophils (%) (Auto) 1, Neutrophils # (Auto) 3.3, Lymphocytes # (Auto) 0.8, Monocytes # (Auto) 0.8, Eosinophils # (Auto) 0.3, Basophils # (Auto) 0.0, Immature Granulocyte # (Auto) 0.0, Sodium Level 140, Potassium Level 3.5, Chloride Level 103, Carbon Dioxide Level 27, Anion Gap 10, Blood Urea Nitrogen 13, Creatinine 0.60, Estimat Glomerular Filtration Rate 88, BUN/Creatinine Ratio 22, Glucose Level 96, Calcium Level 8.3, Corrected Calcium 9.3, Phosphorus Level 2.8, Magnesium Level 1.6, Total Bilirubin 1.0, Aspartate Amino Transf (AST/SGOT) 16, Alanine Aminotransferase (ALT/SGPT) 11, Alkaline Phosphatase 49, Total Protein 5.5, Albumin 2.7 08/27/22 04:50: Blood Gas Puncture Site R BRACH, Blood Gas Patient Temperature 36.5, Arterial Blood pH 7.41, Arterial Blood Partial Pressure CO2 54, Arterial Blood Partial Pressure O2 74, Arterial Blood HCO3 34, Arterial Blood Total CO2 35.4, Arterial Blood Oxygen Saturation 96, Arterial Blood Base Excess 8.8, Bhavesh Test NA, Blood Gas Ventilator Setting NO, Blood Gas Inspired Oxygen 21 NC 08/28/22 05:34: White Blood Count 6.7, Red Blood Count 3.59, Hemoglobin 10.3, Hematocrit 33, Mean Corpuscular Volume 93, Mean Corpuscular Hemoglobin 29, Mean Corpuscular Hemoglobin Concent 31, Red Cell Distribution Width 14.6, Platelet Count 227, Mean Platelet Volume 10.1, Immature Granulocyte % (Auto) 0, Neutrophils (%) (Auto) 66, Lymphocytes (%) (Auto) 14, Monocytes (%) (Auto) 13, Eosinophils (%) (Auto) 6, Basophils (%) (Auto) 1, Neutrophils # (Auto) 4.5, Lymphocytes # (Auto) 1.0, Monocytes # (Auto) 0.9, Eosinophils # (Auto) 0.4, Basophils # (Auto) 0.0, Immature Granulocyte # (Auto) 0.0, Sodium Level 141, Potassium Level 3.7, Chloride Level 102, Carbon Dioxide Level 29, Anion Gap 10, Blood Urea Nitrogen 15, Creatinine 0.65, Estimat Glomerular Filtration Rate 86, BUN/Creatinine Ratio 23, Glucose Level 98, Calcium Level 8.7, Corrected Calcium 9.6, Magnesium Level 1.8, Total Bilirubin 0.9, Aspartate Amino Transf (AST/SGOT) 16, Alanine Aminotransferase (ALT/SGPT) 13, Alkaline Phosphatase 52, Total Protein 5.8, Albumin 2.9 Discharge Home Medications: Active Scripts Active Reported Carbidopa-Levodopa 25-100 Tab (Carbidopa/Levodopa) 25 Mg-100 Mg Tablet 1 Ea PO 0700,1000,1300,1600,1900 Melatonin 10 Mg Tablet 10 Mg PO HS Multivitamin 1 Each Tablet 1 Each PO DAILY B-Complex Tablet (Vitamin B Complex/Folic Acid) 0.4 Mg Tablet 1 Ea PO DAILY Sertraline HCl 25 Mg Tablet 25 Mg PO DAILY Ropinirole HCl 2 Mg Tablet 2 Mg PO TID Amlodipine Besylate 5 Mg Tablet 5 Mg PO DAILY Tramadol HCl 50 Mg Tablet 50 Mg PO BID PRN Ocuvite Eye + Multi Tablet (Mv-Mn/FA/Vit K/Lycop/Lut/Zeaxa) 1 Each Tablet 1 Each PO DAILY Vitamin C (Ascorbic Acid) 500 Mg Capsule 500 Mg PO DAILY Flecainide Acetate 100 Mg Tablet 50 Mg PO BID TAKES OF A 100MG TAB Docusate Sodium 100 Mg Capsule 100 Mg PO BID Diazepam 10 Mg Tablet 10 Mg PO HS Lovastatin 10 Mg Tablet 10 Mg PO HS Eliquis (Apixaban) 2.5 Mg Tablet 2.5 Mg PO BID Instructions to patient/family Please see electronic discharge instructions given to patient. FLORENCIA TAPIA DO Aug 28, 2022 09:05
[2022-08-28] MEDS ORDERED: TROUGH ORDER-PHARMACY XX ONE (10:00)
[2022-08-28 10:30] VITALS: BP 170/79
--- NOTE | 2022-08-28 11:19 | Progress Note ---
MARILEE STACY 08/28/22 1119: Progress Note Subjective: Hospital Course: This is an 87 y/o female who was admitted to the inpatient rehab unit s/p right hip fracture internal fixation who presented to ICU after being found confused/lethargic and in respiratory distress in inpatient rehab. Her history is significant for A-fib/sinus-node dysfunction, CHF, and CAD. Upon this change she was admitted to the ICU and initial workup with ABG, CXR, and labs suggested hypercarbic acute respiratory failure as the cause for the acute change. She was subsequently started on broad-spectrum antibiotics to cover for hospital acquired pneumonia. Over the first night in the ICU her oxygen needs decreased and she stabilized. On the morning of day 1 she was feeling significantly better. Blood cultures were negative and her WBC was never elevated. She was moved to med-surg unit given her stability and worked with PT/OT and advanced her diet. On hospital day 2 she was feeling more improved and decision was made to transfer her back to inpatient rehab unit to continue intensive therapy. Interval/Progress HD #2 Pt seen at bedside. She is drinking her coffee. She says she's feeling much better and has no complaints. She has taken her nasal cannula off when adjusting and says she does not feel SOB/SOA. She denies CP, N/V. She's getting up with help but still having some pain. She felt confused again last night and says that it's when she wakes up she feels disoriented so she said when she goes to rehab again "she may try not to sleep so that can't happen." She is urinating without issue and is having BMs. Objective: General: Alert, Oriented X3, No Acute Distress HEENT: PERRLA, EOMI Lungs: Clear to Auscultation, Normal Air Movement Heart: Regular Rate, Normal S1, Normal S2, Other (II/ holosystolic murmur best heard over mitral/tricuspid areas.) Abdomen: Normal Bowel Sounds, Soft, No Tenderness Extremities: Other (Trace edema.) Skin: No Rashes, No Breakdown Neuro: Normal Speech Psych/Mental Status: Mental Status NL, Mood NL Laboratory Tests 08/27/22 03:22 08/28/22 05:34 Vital Signs Date Time Temp Pulse Resp B/P (MAP) Pulse Ox O2 Delivery O2 Flow Rate FiO2 08/28/22 10:30 36.6 77 18 170/79 94 Nasal Cannula 4.00 08/28/22 08:43 Nasal Cannula 4.00 08/28/22 08:18 36.6 77 18 170/79 (109) 94 Nasal Cannula 4.00 08/28/22 08:00 93 Nasal Cannula 4.00 08/28/22 07:22 70 08/28/22 04:14 36.3 67 16 176/91 (119) 93 Nasal Cannula 4.00 08/28/22 01:00 64 08/28/22 00:22 36.7 60 16 154/82 (106) 94 Nasal Cannula 4.00 08/27/22 21:00 93 Nasal Cannula 4.00 08/27/22 19:34 37.0 70 20 120/72 (88) 92 High Flow N/C 4.00 08/27/22 19:00 64 08/27/22 16:34 36.2 59 19 110/74 (86) 95 Nasal Cannula 4.00 08/27/22 12:05 37.3 79 18 116/72 (87) 93 Nasal Cannula 4.00 08/27/22 12:00 72 I & O 08/28/22 07:00 Intake Total 2000 ml Output Total 2410 ml Balance -410 ml Radiology NAME: [facility] REC#: [id number] PT STATUS: ADM IN : 1935 PHYSICIAN: MARYJANE TAPIA DO ADMIT DATE: 08/26/22/ Signed Date of Exam:08/27/22 CHEST 1 VIEW, AP/PA ONLY INDICATION: Followup dyspnea. TECHNIQUE: Single view chest 4:24 AM. CORRELATION STUDY: 08/26/2022 FINDINGS: Heart size and mediastinum are enlarged and prominent. Loop recorder device, unchanged. Vascular slightly increased. Mildly prominent interstitial markings reflect mild edema. No infiltrate. Question trace effusions. Prior surgical change left humeral head with a chronic unhealed impacted right humeral head and neck fracture. IMPRESSION: 1. Heart size and vasculature appear slightly more prominent suggesting mild edema. Dictated by: Dictated on workstation # [id number] Dict: 08/27/22 0827 Trans: 08/27/22 1127 CVB [id number] Interpreted by: SP PINZON DO Electronically signed by: SP PINZON DO 08/27/22 1127 Assessment: This is an 87 y/o female who presented with acute change in level of consciousness/alertness and found to be in acute hypoxic, hypercarbic respiratory distress/failure. Plan Hospital acquired pneumonia vs CHF exacerbation Acute hypoxic, hypercarbic respiratory failure Respiratory acidosis - compensated Hypoxia - chronic -Currently on 3 L N.[place], satting mid to low 90s without any distress/symptoms; when O2 is off she denies symptoms - wean O2 as able -Wears N.C at home during nighttime with O2 concentrator, unsure of baseline flow rate. -CXR on admit showed patchy right opacities concerning for PNA but CXR this AM showed increased (mild) edema, increased interstitial markings, possible small bilateral effusion without mention for opacities or concern for PNA. -WBC is 5.2 today (08/27), has been afebrile -AB.41/54/74/34 - Primary metabolic alkalosis (likely chronic 2/2 CHF) with secondary respiratory acidosis 2/2 CHF exacerbation vs PNA -CHF exacerbation seems more likely given patient's comorbidities and overall clinical picture; patient exam/symptoms improved with Lasix. Could continue daily. -Could recheck BNP -Cultures negative - will transition to cefdinir PO to continue coverage for pneumonia Right proximal femur fracture - repaired -Pain control: PO oxy, APAP PRN -Hgb 12.7 --> 13.1 --> 11.3 --> 9.7 (08/24) --> 9.5 --> 10.3 (08/28) Coags WNL -Supplementing Fe. -Normotensive, VSS. PAF -On Apixiban 2.5mg BID -On flecainide - continue -NSR on exam/monitor today CHF CAD HTN - new -Recent Echo with EF of 50-55%, pulm artery pressures 35-40mmHg, severe concentric LVH -Consult cardiology - appreciate recs. -Resuming amlodipine today. -Could benefit to continue lasix Parkinson's Disease -Carbidopa/levodopa 25-100mg 1.5 tabs QID at home - continue -Ropinriole 1.5mg daily - continue FEN/GI -Maintenance fluids - No fluids. UOP yesterday 1.86 ml/kg/hr - great response to lasix -Regular diet -Replace electrolytes PRN -Bowel regimen, protonix DVT Prophylaxis: SCDs, apixiban. Dispo: Stable. Ready for DC to inpatient rehab unit. MARYJANE TAPIA DO 08/29/22 0418: Supervisory-Addendum Brief Verification & Attestation Participated in pt care: history, MDM, physical Personally performed: exam, history, MDM, supervision of care Care discussed with: Medical Student Procedures: n/a Results interpretation: Verified all documentation Verification and Attestation of Medical Student E/M Service A medical student performed and documented this service in my presence. I reviewed and verified all information documented by the medical student and made modifications to such information, when appropriate. I personally performed the physical exam and medical decision making. Maryjane Tapia, Aug 29, 2022,04:18 MARILEE STACY Aug 28, 2022 11:19 MARYJANE TAPIA DO Aug 29, 2022 04:18
== END 2022-08-28 10:30 | DRG 193 ==
LOC: ICU 09:10 → 4TH 08-27 11:05
PROVIDERS: ADMIT Internal Medicine; ATTEND Internal Medicine
PROC: 5A09357 Assistance with Respiratory Ventilation, Less than 24 Consecutive Hours, Continuous Positive Airway Pressure (ICD-10-PCS; principal; 2022-08-26)
DX: J18.9 Pneumonia, unspecified organism (principal); J96.02 Acute respiratory failure with hypercapnia; S72.8X1A Other fracture of right femur, initial encounter for closed fracture; J96.21 Acute and chronic respiratory failure with hypoxia; E87.4 Mixed disorder of acid-base balance; I48.20 Chronic atrial fibrillation, unspecified; I11.0 Hypertensive heart disease with heart failure; I50.9 Heart failure, unspecified; E78.5 Hyperlipidemia, unspecified; Y95 Nosocomial condition; G20 Parkinson's disease; J44.9 Chronic obstructive pulmonary disease, unspecified; Z87.891 Personal history of nicotine dependence; Z90.710 Acquired absence of both cervix and uterus; Z79.01 Long term (current) use of anticoagulants
CPT/HCPCS: 36415; 36600; 71045; 80053; 82805; 83735; 84100; 85025; 87040; 87081

== ENCOUNTER 2022-08-28 10:45 | Inpatient (IN) | payer MEDICARE, OTHER ==
[~2022-08-28] VITALS: Ht 167.7 cm; Wt 55.3 kg
--- NOTE | 2022-08-28 11:04 | PM&R Post Admission Assessment ---
PM&R HP Date of Visit: Aug 28, 2022 Time of Visit: 11:15 History of Present Illness CC: Debility following right hip fracture complicated with acute on chronic respiratory failure with hypoxia and hypercapnia with PNA Abner Barrientos MSIV: Hospital Course: This is an 87 y/o female who was admitted to the inpatient rehab unit s/p right hip fracture internal fixation who presented to ICU after being found confused /lethargic and in respiratory distress in inpatient rehab. Her history is significant for A-fib/sinus-node dysfunction, CHF, and CAD. Upon this change she was admitted to the ICU and initial workup with ABG, CXR, and labs suggested hypercarbic acute respiratory failure as the cause for the acute change. She was subsequently started on broad-spectrum antibiotics to cover for hospital acquired pneumonia. Over the first night in the ICU her oxygen needs decreased and she stabilized. On the morning of day 1 she was feeling significantly better. Blood cultures were negative and her WBC was never elevated. She was moved to med-surg unit given her stability and worked with PT/OT and advanced her diet. On hospital day 2 she was feeling more improved and decision was made to transfer her back to inpatient rehab unit to continue intensive therapy. Currently she is doing well and ready for restart her ARU course after the detour above. BM+. Shifting Cefepime and Vanc over to Cefdinir. No wheezing so no steroids given. Pain is controlled. Restarted home meds Past Dbzgnln-Dgzdmq-Efkdwj Hx Past Med/Social Hx: Reviewed Nursing Past Med/Soc Hx, Reviewed and Corrections made Patient Social History Marrital Status: Employed/Student: retired Alcohol Use: Denies Use Smoking Status: Former Smoker Former Smoker, Quit: Jun 17, 1999 Type Used: Cigarettes Recent Hopitalizations: No Immunizations Up To Date Tetanus Booster (TDap): Less than 5yrs Pediatric: Yes Date of Pneumonia Vaccine: Feb 20, 2016 Date of Influenza Vaccine: Jun 10, 2019 Seasonal Allergies Seasonal Allergies: Yes Past Medical History Surgeries: Abdominal, Hysterectomy, Orthopedic Respiratory: COPD Currently Using CPAP: No Currently Using BIPAP: No Cardiac: Atrial Fibrillation, High Cholesterol, Hypertension Neurological: Parkinson's Disease Reproductive: No Sexually Transmitted Disease: No Hysterectomy Musculoskeletal: Osteoporosis Psychosocial: Anxiety, Depression History of Blood Disorders: No Family History Cardiovascular disease 19 FATHER Hypertension 19 FATHER No Pertinent Family Hx PM&R Allergy/Meds/Data Review Allergies Coded Allergies: Sulfa (Sulfonamide Antibiotics) (Verified Allergy, Unknown, hives, 11/16/19) Home Medications Scheduled Amlodipine Besylate (Amlodipine Besylate), 5 MG PO DAILY, (Reported) Apixaban (Eliquis), 2.5 MG PO BID, (Reported) Ascorbic Acid (Vitamin C), 500 MG PO DAILY, (Reported) Carbidopa/Levodopa (Carbidopa-Levodopa 25-100 Tab), 1 EA PO 0700,1000,1300,1 600,1900, (Reported) Diazepam (Diazepam), 10 MG PO HS, (Reported) Docusate Sodium (Docusate Sodium), 100 MG PO BID, (Reported) Flecainide Acetate (Flecainide Acetate), 50 MG PO BID, (Reported) Lovastatin (Lovastatin), 10 MG PO HS, (Reported) Melatonin (Melatonin), 10 MG PO HS, (Reported) Multivitamin (Multivitamin), 1 EACH PO DAILY, (Reported) Mv-Mn/FA/Vit K/Lycop/Lut/Zeaxa (Ocuvite Eye + Multi Tablet), 1 EACH PO DAILY, (Reported) Ropinirole HCl (Ropinirole HCl), 2 MG PO TID, (Reported) Sertraline HCl (Sertraline HCl), 25 MG PO DAILY, (Reported) Vitamin B Complex/Folic Acid (B-Complex Tablet), 1 EA PO DAILY, (Reported) Scheduled PRN Tramadol HCl (Tramadol HCl), 50 MG PO BID PRN for PAIN-MODERATE (5-7), (Reported) Current Medications Current Medications Reviewed Review of Systems Constitutional: see HPI, malaise, weakness EENTM: no symptoms reported Respiratory: dyspnea on exertion Cardiovascular: no symptoms reported Gastrointestinal: no symptoms reported Genitourinary: no symptoms reported Musculoskeletal: back pain, joint pain Skin: no symptoms reported Psychiatric/Neurological: Anxiety, Depressed All Other Systems Reviewed Negative Unless Noted: Yes Physical Exam Physical Exam Vital Signs Capillary Refill : Height, Weight, BMI Height: 5'7.00" Weight: 123lbs. 2.0oz. [id number]; 20.55 BMI Method:Stated General Appearance: No Apparent Distress, WD/WN, Chronically ill, Thin Eyes: Bilateral Eye Normal Inspection, Bilateral Eye PERRL HEENT: PERRL/EOMI, Normal ENT Inspection, Pharynx Normal Neck: Full Range of Motion, Normal Inspection, Non Tender, Supple, Carotid Bruit Respiratory: Chest Non Tender, Lungs Clear, No Accessory Muscle Use, No Respiratory Distress, Decreased Breath Sounds Cardiovascular: No Edema, No Gallop, No JVD, No Murmur, Normal Peripheral Pulses, Irregularly Irregular Gastrointestinal: Normal Bowel Sounds, No Organomegaly, No Pulsatile Mass, Non Tender, Soft Back: Normal Inspection, No CVA Tenderness, No Vertebral Tenderness Extremity: Normal Capillary Refill, Normal Inspection, Normal Range of Motion, Non Tender, No Calf Tenderness, No Pedal Edema Neurologic/Psychiatric: Alert, Oriented x3, Normal Mood/Affect, 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 Norm as Tested, Abnormal Gait, Depressed Affect, Motor Weakness (right leg) Skin: Normal Color, Warm/Dry Lymphatic: No Adenopathy PM&R Medical Assessment & Plan REHAB/MEDICAL ASSESSMENT AND PLAN: REHAB IMPAIRMENT GROUP: Right hip fracture ETIOLOGIC DIAGNOSIS: Right hip fracture The comorbidities that impact the patients function and/or functional outcome by: advanced age, severe Parkinson's, fall risk, recent acute resp failure, completing PNA treatment REHAB PLAN: The patient is being admitted to our comprehensive inpatient rehabilitation facility and can tolerate the intensity of service consisting of at least: 180 minutes of therapy a day, 5 out of 7 days a week Rehab treatment will consist of: PT OT will focus on regaining function with use of AD in order to return home to live independently while preventing falls and building stamina The patient/family has a good understanding of our discharge process and will benefit from an interdisciplinary inpatient rehabilitation program. The patient has potential to make improvement and is in need of at least two of the following multidisciplinary therapies including but not limited to physical, occupational, speech, and prosthetics and orthotics. Additionally the patient will need services from respiratory, nutritional services, wound care, psychology, etc. (Customize this to each patient). Given the patients complex condition and risk of further medical complications, rehabilitation services cannot be safely or effectively provided at a lower level of care such as a correction facility. BARRIERS TO DISCHARGE: frail status with hip fracture s/p repair and resp failure recently ESTIMATED LOS: 10 days DISPOSITION: Home RELEVANT CHANGES SINCE PREADMISSION SCREENING: I have compared the patients medical and functional status at the time of the preadmission screening and there are: no changes PROGNOSIS: Fair REHABILITATION GOALS: 1. PT OT will focus on regaining function with use of AD in order to return home to live independently while preventing falls and building stamina All the above goals were reviewed with the patient and he/she is in agreement. By signing this document, I acknowledge that I have personally performed a full physical examination on this patient within 24 hours of admission to this inpatient rehabilitation facility and have determined the patient to be able to tolerate the above course of treatment at an intensive level for a reasonable period of time. I will be completing a detailed individualized Plan of Care for this patient by day #4 of the patients stay based upon the Preadmission Screen, the Post-Admission Evaluation, and the therapy evaluations. Admission Dx/Comorbidities: (1) Closed right hip fracture Status: Acute ICD Codes: S72.001A - Fracture of unspecified part of neck of right femur, initial encounter for closed fracture (2) Paroxysmal atrial fibrillation ICD Codes: I48.0 - Paroxysmal atrial fibrillation (3) HLD (hyperlipidemia) ICD Codes: E78.5 - Hyperlipidemia, unspecified (4) Parkinson's disease ICD Codes: G20 - Parkinson's disease (5) Hypertension ICD Codes: I10 - Essential (primary) hypertension (6) Acute on chronic respiratory failure with hypoxia and hypercapnia ICD Codes: J96.21 - Acute and chronic respiratory failure with hypoxia; J96.21 - Acute and chronic respiratory failure with hypoxia; J96.22 - Acute and chronic respiratory failure with hypercapnia; J96.22 - Acute and chronic respiratory failure with hypercapnia Assessment/Plan Assessment and Plan Assess & Plan/Chief Complaint Assessment: Right hip fracture s/p repair s/p HAP with hypoxic and hypercapneic respiratory failure requiring transfer to ICU from ARU now back to ARU again Chronic AF OAC maintained HTN HLP Parkinson's COPD Post op anemia acute blood loss requiring IV iron infusions Iron deficiency B12 def Osteoporosis Plan: Cefdinir to complete PNA treatment Pain control Monitor labs PT OT protocol FLORENCIA TAPIA DO Aug 28, 2022 11:04
[2022-08-28] MEDS ORDERED: ONDANSETRON 4 MG (ZOFRAN) ORAL DISSOLVE TAB PO PRN ×2 (11:15→20:00)
[2022-08-28] MEDS ORDERED: BISACODYL 10 MG SUPP (DULCOLAX) PR PRN ×2 (11:15→20:00)
[2022-08-28] MEDS ORDERED: ALPRAZolam 0.25 MG (XANAX) TAB PO PRN ×2 (11:15→20:00)
[2022-08-28] MEDS ORDERED: guaiFENesin/CODEINE (ROBITUSSIN AC) 10ML UDC PO PRN ×2 (11:15→20:00)
[2022-08-28] MEDS ORDERED: ACETAMINOPHEN 325 MG TABLET PO PRN ×2 (11:15→20:00)
[2022-08-28] MEDS ORDERED: LOPERAMIDE 2 MG (IMODIUM) TABLET PO PRN ×2 (11:15→20:00)
[2022-08-28] MEDS ORDERED: CALCIUM CARBONATE 500 MG (TUMS) TAB.CHEW PO PRN ×2 (11:15→20:00)
[2022-08-28] MEDS ORDERED: FLEET ENEMA ADULT 1 EA BTL PR PRN ×2 (11:15→20:00)
[2022-08-28] MEDS ORDERED: DOCUSATE SODIUM 100 MG (COLACE) CAP PO PRN ×2 (11:15→20:00)
[2022-08-28] MEDS ORDERED: diphenhydrAMINE 25 MG TAB (BENADRYL) PO PRN ×2 (11:15→20:00)
[2022-08-28] MEDS ORDERED: LACTULOSE SYRUP 10GM/15ML (ENULOSE) 30ML UDC PO PRN ×2 (11:15→20:00)
--- NOTE | 2022-08-28 11:56 | Occupational Therapy Eval ---
OT Evaluation-General/PLF Medical Diagnosis Admission Date Aug 28, 2022 at 10:45 Medical Diagnosis: s/p R IM nail Onset Date: Aug 22, 2022 Therapy Diagnosis Therapy Diagnosis: decreased ADL status Height/Weight Height (Feet): 5 Height (Inches): 7.00 Weight (Pounds): 123 Weight (Ounces): 2.0 Referral Physician: Andrew Referral Reason: Evaluation/Treatment Medical History Pertinent Medical History: Atrial Fib, Arthritis, CAD, CVA, HTN, DC, Parkinson's Additional Medical History afib, CHF, PKD, CVA, arthritis, anxiety Current History fall s/p R IM nail 08/22/2022. Transfer to ARU 08/24. Transfer to ICU 08/26 due to hypoxia and PNA. Pt transferred back to ARU 08/28/22. Social History Home: Single Level Current Living Status: Spouse Entry Into Home: Ramp ADL-Prior Level of Function SCALE: Activities may be completed with or without assistive devices. 3-Urccmzkysh-nyrdqjl completes the activity by him/herself with no assistance from a helper. 5-Set-up or Clean-up Assistance-helper sets up or cleans up; patient completes activity. [place] assists only prior to or following the activity. 4-Supervision or Touching Assistance-helper provides verbal cues and/or touching/steadying and/or contact guard assistance as patient completes activity. Assistance may be provided throughout the activity or intermittently. 3-Partial/Moderate Assistance-helper does LESS THAN HALF the effort. [place] lifts, holds or supports trunk or limbs, but provides less than half the effort. 2-Substantial/Maximal Assistance-helper does MORE THAN HALF the effort. [place] lifts or holds trunk or limbs and provides more than half the effort. 2-Bjzmrsizm-tjmnud does ALL the effort. Patient does none of the effort to co mplete the activity. Or, the assistance of 2 or more helpers is required for the patient to complete the activity. If activity was not attempted, code reason: 7-Patient Refused. 9-Not Applicable-not attempted and the patient did not perform the activity before the current illness, exacerbation or injury. 10-Not Attempted due to Environmental Limitations-(lack of equipment, weather restraints, etc.). 88-Not Attempted due to Medical Conditions or Safety Concerns. ADL PLOF Comments Pt reports IND with ADLs and functional mobility at PLOF, using FWW only outside on longer walks around [facility]. Pt has a walk in shower with SC, and walk in bath tub. Self Care: Independent Functional Cognition: Independent DME/Equipment: Bath Chair, Shower, Tall Toilet, Tub (walk in) OT Current Status Subjective Pt agreeable to OT evaluation followed by OT/PT cotreatment. Mental Status/Objective Patient Orientation: Person, Place, Time, Situation Attachments: Oxygen (3L) Current Glasses/Contacts: Yes Hearing Aids: No Dentures/Partials: Yes Hand Dominance: Right Upper Extremity ROM RUE ~90 degrees shoulder flexion, LUE ~150 degrees. This is pt's baseline Upper Extremity Coordination WFL Upper Extremity Sensation WFL Upper Extremity Strength grossly 3/5 BUEs. ADL-Treatment Eating (QC): 5 (set up with lunch) Oral Hygiene (QC): 4 (Supervision) Shower/Bathe Self (QC): 3 (Min A with BLEs lower legs/feet.) Upper Body Dressing (QC): 5 Lower Body Dressing (QC): 2 (Max A with threading pants. slight assist with pant hike. Pt wore tighter fitting pants ) On/Off Footwear (QC): 3 (Mod A overall. Pt able to doff, assist to don.) Toileting Hygiene (QC): 3 (Min A with pant hike.) Other Treatments OT evaluation complete. OT/PT cotreat due to skill of 2 clinicians required which a rehabilitation services aide could not perform in order to coordinate UE/LEs, decrease fall risk, and due to pt's limitations in strength, activity tolerance, mobility/transfers. OT focused on ADLS, UE placement, cues for sequencing and safety, PT focused on LE placement, gross overall movement, transfers and mobility. Pt completed toileting and ADLS as outlined above. Pt then performed functional mobility using FWW, transfers, w/c mobility, and car transfer. Pt propelled w/c back to her room, transferring from w/c to recliner. Post tx, pt in recliner, call light in reach and all needs met. Min A Supine to/from sit, min A Sit to/from stand, CGA transfers, min A car transfer. Frequent cues required for hand placement and positioning. Functional mobility 20' FWW CGA. W/c Mobility 120' min A. Education OT Patient Education: Correct positioning, Energy conservation, Modified ADL techniques, Progress toward Goal/Update tx plan, Purpose of tx/functional activities, Rehab process Teaching Recipient: Patient Teaching Methods: Discussion Response to Teaching: Verbalize Understanding BIMS CAM BIMS Expression of Ideas and Wants: Without Difficulty Understanding Verbal Content: Understands Brief Interview/Mental Status: Yes IRF GARY BIMS: IRF GARY BIMS Response (Comments) Value Repitition of Three Words Three 3 Recalls Socks Yes, No Cue Required 2 Recalls Blue Yes, No Cue Required 2 Recalls Bed Yes, After Cueing 1 Year Correct 3 Month Accurate Within 5 Days 2 Day Incorrect or No Answer 0 Total 13 [address] Asses[address] Mental [address] No CAM Mental Status Change/Baseline: 0 Inattention: 0 Disorganized thinkin Altered level of consciousness: 0 OT Short Term Goals Short Term Goals Time Frame: Sep 07, 2022 Upper body dressin Lower body dressin Putting on/taking off footwear: 5 OT Weight Guesser Goals Fpc Goals Time Frame: Sep 21, 2022 Eating (QC): 6 Oral Hygiene (QC): 6 Toileting Hygiene (QC): 6 Shower/Bathe Self (QC): 5 Upper Body Dressing (QC): 6 Lower Body Dressing (QC): 6 On/Off Footwear (QC): 6 Additional Goals: 1-Demonstrate ADL Tasks, 2-Verbalize Understanding, 3-Improv eStrength/Junior 1=Demonstrate adherence to instructed precautions during ADL tasks. 2=Patient will verbalize/demonstrate understanding of assistive devices/modifications for ADL. 3=Patient will improve strength/tolerance for activity to enable patient to p erform ADL's. OT Education/Plan Problem List/Assessment Assessment: Decreased Activ Tolerance, Decreased UE Strength, Impaired Funct Balance, Impaired I ADL's, Impaired Self-Care Skills Discharge Recommendations Plan/Recommendations: Continue POC Treatment Plan/Plan of Care Patient would benefit from OT for education, treatment and training to promote independence in ADL's, mobility, safety and/or upper extremity function for ADL's. Plan of Care: ADL Retraining, Functional Mobility, Group Exercise/Act as Ind, U E Funct Exercise/Act Treatment Duration: Sep 21, 2022 Frequency: At least 5 of 7 days/Wk (IRF) Estimated Hrs Per Day: 1.5 hours per day Agreement: Yes Rehab Potential: Fair Time Start Time: 11:10 Stop Time: 12:10 DATE: Aug 28, 2022 Total Time Billed (hr/min): 60 Billed Treatment Time OT eval [id number], Cotreat [id number] 1, EVM (10'), ADL 2 (30'), FA (20') VASHTI DUARTE OT Aug 28, 2022 11:56
[2022-08-28 12:32] VITALS: BP 121/69
--- NOTE | 2022-08-28 12:57 | Physical Therapy Evaluation ---
PT Evaluation-General Medical Diagnosis Admission Date Aug 28, 2022 at 10:45 Medical Diagnosis: s/p R IM nail Onset Date: Aug 22, 2022 Therapy Diagnosis Therapy Diagnosis: impaired mobility, strength, endurance Height/Weight Height (Feet): 5 Height (Inches): 7.00 Weight (Pounds): 123 Weight (Ounces): 2.0 Weight Bear Status Right Lower Extremity: Right Weight Bearing/Tolerated Referral Physician: Maryjane Morales DO Reason for Referral: Evaluation/Treatment Medical History Pertinent Medical History: Atrial Fib, Arthritis, CAD, CVA, HTN, MA, Parkinso n's Reviewed History: Yes Social History Home: Single Level Current Living Status: Spouse Entry Into Home: Ramp Prior Prior Level of Function SCALE: Activities may be completed with or without assistive devices. 4-Qbpmjsqkjb-eseyvmx completes the activity by him/herself with no assistance from a helper. 5-Set-up or Clean-up Assistance-helper sets up or cleans up; patient completes activity. [place] assists only prior to or following the activity. 4-Supervision or Touching Assistance-helper provides verbal cues and/or touching/steadying and/or contact guard assistance as patient completes activity. Assistance may be provided throughout the activity or intermittently. 3-Partial/Moderate Assistance-helper does LESS THAN HALF the effort. [place] lifts, holds or supports trunk or limbs, but provides less than half the effort. 2-Substantial/Maximal Assistance-helper does MORE THAN HALF the effort. [place] lifts or holds trunk or limbs and provides more than half the effort. 3-Aabtvvcgs-hpqiow does ALL the effort. Patient does none of the effort to complete the activity. Or, the assistance of 2 or more helpers is required for the patient to complete the activity. If activity was not attempted, code reason: 7-Patient Refused. 9-Not Applicable-not attempted and the patient did not perform the activity before the current illness, exacerbation or injury. 10-Not Attempted due to Environmental Limitations-(lack of equipment, weather restraints, etc.). 88-Not Attempted due to Medical Conditions or Safety Concerns. Bed Mobility: 6 Transfers (B,C,W/C): 6 Gait: 6 Indoor Mobility (Ambulation): Independent Patient uses a 4 wheeled walker outside of the home. PT Evaluation-Current Subjective Patient in WC pre tx, agrees to PT, has 7/10 headache, states she doesn't want the nurse notified of pain at this time. Will be co-treating with OT for part of tx due to poor patient mobility, strength, endurance, severe debility, coordinate UE and LE with activity, safety and reduce risk of falls. Pain Section J - Health Conditions 1. Rarely or not at all 2. Occasionally 3. Frequently 4. Almost constantly 8. Unable to answer Pain Effect on Sleep: 2 Pain Interference with Therapy: 2 Pain Interference w/Day-to-Day: 2 Pt/Family Goals to be independent at home. Objective Patient Orientation: Person, Place, Situation Attachments: Oxygen ROM/Strength ROM Lower Extremities WNL LLE, RLE not tested Strength Lower Extremities LLE (hip flexion 3+/5, knee flexion 4/5, knee extension 4/5, dorsiflexion 5/5), RLE not tested Sensory Hearing: Functional Hand Dominance: Right Sensation Right Lower Extremit: Intact Sensation Left Lower Extremity: Intact Transfers Roll Left & Right (QC): 3 Sit to Lying (QC): 3 Lying to Sitting/Side of Bed(Q: 3 Sit to Stand (QC): 3 Chair/Gvs-ix-Uopci Xfer(QC): 4 Toilet Transfer (QC): 4 Car Transfer (QC): 3 Patient performed rolling and supine <-> sit with min assist, sit <-> stand min assist, transfers CGA, car transfer min assist. Patient needs frequent cues for hand placement and positioning. Patient performs dressing at the beginning of tx. Gait Does the Patient Walk?: Yes Mode of Locomotion: Walk Anticipated Mode of Locomotion: Walk Walk 10 feet (QC): 4 Walk 50 ft with 2 Turns(QC): 88 Walk 150 ft (QC): 88 Walking 10ft/uneven surface-QC: 88 Distance: 20' Gait Assistive Device: FWW Comments/Gait Description Patient can ambulate 20' with a rolling walker with CGA, gait is unsteady and needs steadying assist, she has slight ataxia and has antalgic gait, decreased weight bearing on right leg, poor foot clearance, not safe to ambulate over an uneven surface at this time. Wheelchair Training Does the Pt Use a Wheelchair?: Yes Distance: 120'x2 Wheel 50 ft with 2 turns (QC): 3 Wheel 150 ft (QC): 88 Type of Wheelchair: Manual Patient can propel a manual WC 120' with min assist, uses both arms to propel and steer Stairs 1 Step (curb) (QC): 88 4 Steps (QC): 88 12 Steps (QC): 88 Balance Sitting Static: Normal Sitting Dynamic: Normal Standing Static: Fair Standing Dynamic: Fair Picking up an Object (QC): 4 (CGA using a salt washer) Treatment PT performed bed mobility and transfers, ambulation, WC mobility, positioning and safety during dressing, OT performed dressing, ADL's, UE positioning and safety during activity. Assessment/Needs Patient in recliner post tx with nurse call, phone, tray, all needs met. Patient has impaired mobility, strength, endurance. Needs min assist for supine to sit and sit to stand, has a lot of pain with activity. Rehab Potential: Fair PT Marketing Information Analyst Goals Marketing Information Analyst Goals PT [facility] Goals Time Frame: Sep 11, 2022 Roll Left to Right (QC): 6 Sit to Lying (QC): 6 Lying-Sitting on Side/Bed(QC): 6 Sit to Stand (QC): 6 Chair/Zry-jl-Qlslc Xfer(QC): 4 (SBA) Toilet/Commode Transfer (QC): 4 (SBA) Car Transfer (QC): 4 (SBA) Walk 10 feet (QC): 4 (SBA) Walk 10ft-Uneven Surface(QC): 4 (SBA) Walk 50ft with 2 Turns (QC): 4 (SBA) Walk 150 ft (QC): 4 (SBA) Wheel 50 feet with 2 turns (QC: 9 Wheel 150 feet: 9 1 Step (curb) (QC): 4 (CGA) 4 Steps (QC): 4 (CGA) 12 Steps (QC): 88 Picking up an Object (QC): 6 PT Plan Problem List Problem List: Activity Tolerance, Functional Strength, Safety, Balance, Gait, Transfer, Bed Mobility, ROM Treatment/Plan Treatment Plan: Continue Plan of Care Treatment Plan: Bed Mobility, Education, Functional Activity Junior, Functional Strength, Group Therapy, Gait, Safety, Therapeutic Exercise, Transfers Treatment Duration: Sep 11, 2022 Frequency: At least 5 of 7 days/Wk (IRF) Estimated Hrs Per Day: 1.5 hours per day Patient and/or Family Agrees t: Yes Safety Risks/Education Patient Education: Gait Training, Transfer Techniques, Correct Positioning, W/C Management, Safety Issues Teaching Recipient: Patient Teaching Methods: Demonstration, Discussion Response to Teaching: Reinforcement Needed Discharge Recommendations Plan Patient will perform bed mobility and transfer training, balance and endurance training, functional strengthening, stair training, gait training, and education, to improve functional mobility and independence at home. Therapy Discharge Recommendati: Scheduled Assistance, Home & Family, Post Acute PT Time Time In: 1100 Time Out: 1210 DATE: Aug 28, 2022 Total Billed Treatment Time: 60 Total Billed Treatment 1 visit EVM 10' FA 50' PT eval from [id number], OT eval from [id number], co-treated from [id number] LINDA MICHELE PT Aug 28, 2022 12:56
--- NOTE | 2022-08-28 14:59 | Therapy Group Daily Note ---
Therapy Daily Group Note Patient Education Topic Other List Below (AE) Exercises LE Seated Exercise, UE Exercise Session Ratio (pt:therapist): 4:1 Goal of Session: Home Safety Strategies, UE/LE Strengthing, Use of Adaptive Equipment Goal Met for this Session: Yes Pt Benefit of Group: Contributions to Others, F/U Use of Strategies @Home, Increased Functional Safety, Increased Functional Strength, Improved Cognition, Recognition of Peers, Socialization Other/Notes Pt transported via w/c to OT/PT group. Group consisted of introductions (name, favorite summer food), socialization, B UE/LE seated exercises and educational topic of AE for daily functional tasks. Pt introduced self appropriately and activity listened to peers. Pt tolerated B UE/LE movement activities well. Pt voiced own strategies and opinions about educational topic to acknowledge understanding. After therapy, pt sitting in recliner with call light/phone in reach. All needs met in room. Start Time: 13:00 Stop Time: 14:15 Total Billed Treatment Time: 75 Total Billed Treatment 1-[facility] ASTER ALEJANDRE Aug 28, 2022 14:59
[2022-08-28 20:00] VITALS: BP 100/61
[2022-08-28] MEDS ORDERED: LORazepam 0.5 MG (ATIVAN) TABLET PO PRN (20:00)
[2022-08-28] MEDS ORDERED: HYDROcodone/APAP 5 MG/325 MG (LORTAB) TAB PO PRN (20:00)
[2022-08-28] MEDS ORDERED: ANTACID SUSP 30 ML UDC (MYLANTA) PO PRN (20:00)
[2022-08-28] MEDS ORDERED: fentaNYL INJ 100 MCG/2 ML AMP IV PRN (20:00)
[2022-08-28] MEDS ORDERED: HYDROmorphone 2 MG/ML VIAL (DILAUDID) IV PRN (20:00)
[2022-08-28] MEDS ORDERED: polyethylene glycoL POWDER 17 GM (MIRALAX) PACK PO PRN (20:00)
[2022-08-28] MEDS ORDERED: MELATONIN 3 MG TABLET PO PRN (20:00)
[2022-08-28] MEDS ORDERED: HALOPERIDOL 2 MG (HALDOL) TABLET PO PRN (20:00)
[2022-08-28] MEDS ORDERED: SIMETHICONE 80 MG (MYLICON) CHEW PO PRN (20:00)
[2022-08-28] MEDS ORDERED: ONDANSETRON 4 MG/2 ML (SDV) Z0FRAN IV PRN (20:00)
[2022-08-28] MEDS ORDERED: HALOPERIDOL 5 MG/ML (HALDOL) VIAL IM PRN (20:00)
[2022-08-28] MEDS ORDERED: RT-ALBUTEROL SULF 2.5 MG/3 ML PRE-MIX VIAL INH PRN (20:00)
[2022-08-28] MEDS ORDERED: diphenhydrAMINE 50 MG/ML INJ (BENADRYL) IVP PRN (20:00)
[2022-08-28] MEDS ORDERED: MILK OF MAGNESIA 400 MG/5 ML 30 ML UDC PO PRN (20:00)
[2022-08-28] MEDS ORDERED: LORazepam INJ 2 MG/ML (ATIVAN) VIAL IVP PRN (20:00)
[2022-08-28] MEDS ORDERED: OLANZapine 2.5 MG (ZyPREXA) TAB PO PRN (20:00)
[2022-08-28] MEDS ORDERED: SENNOSIDES 8.6 MG (SENOKOT) TAB PO SCH (21:00)
[2022-08-28] MEDS: DOCUSATE SODIUM 100 MG (COLACE) CAP PO SCH (21:01)
[2022-08-28] MEDS: CEFDINIR 300 MG (OMNICEF) CAP PO SCH (21:01)
[2022-08-28] MEDS: polyethylene glycoL POWDER 17 GM (MIRALAX) PACK PO SCH (21:02)
[2022-08-28] MEDS: SENNA W/DOCUSATE (SENOKOT S) TABLET PO SCH (21:02)
[2022-08-28] MEDS: APIXABAN 2.5 MG (ELIQUIS) TABLET PO SCH (21:39)
[2022-08-28] MEDS: AtorvaSTATin TABLET 10 MG TABLET PO SCH (21:39)
[2022-08-28] MEDS: FLECAINIDE 100 MG (TAMBOCOR) TAB PO SCH (21:39)
[2022-08-28] MEDS: rOPINIRole 1 MG (REQUIP) TABLET PO SCH (21:43)
[2022-08-29] MEDS: HYDROcodone/APAP 5 MG/325 MG (LORTAB) TAB PO PRN (05:44)
[2022-08-29 05:52] LABS: BASOPHILS % (AUTO) 1 % (0-10); EOSINOPHILS # (AUTO) 0.4 10^3/uL (0.0-0.3); EOSINOPHILS % (AUTO) 6 % (0-10); HEMATOCRIT 34 % (35-52); HEMOGLOBIN 10.3 g/dL (11.5-16.0); LYMPHOCYTES # (AUTO) 1.2 10^3/uL (1.0-4.0); LYMPHOCYTES % (AUTO) 20 % (12-44); MEAN CORPUSCULAR HEMOGLOBIN 29 pg (25-34); MEAN CORPUSCULAR HGB CONC 31 g/dL (32-36); MEAN CORPUSCULAR VOLUME 93 fL (80-99); MONOCYTES # (AUTO) 0.8 10^3/uL (0.0-1.0); MONOCYTES % (AUTO) 12 % (0-12); NEUTROPHILS # (AUTO) 3.8 10^3/uL (1.8-7.8); NEUTROPHILS % (AUTO) 61 % (42-75); PLATELET COUNT 261 10^3/uL (130-400); WHITE BLOOD COUNT 6.2 10^3/uL (4.3-11.0)
[2022-08-29 06:04] LABS: ALBUMIN 2.9 GM/DL (3.2-4.5); POTASSIUM 3.5 MMOL/L (3.6-5.0)
[2022-08-29 06:05] LABS: CALCIUM 8.9 MG/DL (8.5-10.1)
[2022-08-29 06:06] LABS: TOTAL PROTEIN 5.9 GM/DL (6.4-8.2)
[2022-08-29 06:08] LABS: BILIRUBIN,TOTAL 0.8 MG/DL (0.1-1.0)
[2022-08-29 06:10] LABS: CREATININE SERUM 0.64 MG/DL (0.60-1.30)
[2022-08-29 08:00] VITALS: BP 108/55
[2022-08-29] MEDS: CYANOCOBALAMIN 1,000 MCG (VITAMIN B-12) TABLET PO SCH (08:17)
[2022-08-29] MEDS: MULTIVIT W/MINERALS TAB (THERAGRAN M) PO SCH (08:18)
[2022-08-29] MEDS: SINEMET 25/100 (CARBIDOPA/LEVODOPA) TAB PO SCH ×4 (08:20→17:44)
[2022-08-29] MEDS: DOCUSATE SODIUM 100 MG (COLACE) CAP PO SCH ×2 (08:21→20:27)
[2022-08-29] MEDS: rOPINIRole 1 MG (REQUIP) TABLET PO SCH ×3 (08:21→20:16)
[2022-08-29] MEDS: IRON SUCROSE 200 MG/10 ML (VENOFER) VIAL IV SCH (08:21)
[2022-08-29] MEDS: APIXABAN 2.5 MG (ELIQUIS) TABLET PO SCH ×2 (08:23→20:16)
[2022-08-29] MEDS: FLECAINIDE 100 MG (TAMBOCOR) TAB PO SCH ×2 (08:23→20:17)
[2022-08-29] MEDS: amLODIPine 5 MG (NORVASC) TAB PO SCH (08:23)
[2022-08-29] MEDS: SENNA W/DOCUSATE (SENOKOT S) TABLET PO SCH ×2 (08:23→20:30)
[2022-08-29] MEDS: SERTRALINE 50 MG (ZOLOFT) TABLET PO SCH (08:24)
[2022-08-29] MEDS: CEFDINIR 300 MG (OMNICEF) CAP PO SCH ×2 (08:24→20:16)
[2022-08-29] MEDS: polyethylene glycoL POWDER 17 GM (MIRALAX) PACK PO SCH ×2 (08:25→19:30)
--- NOTE | 2022-08-29 08:55 | PM&R Progress Note ---
Subjective HPI/CC On Admission Date Seen by Provider: Aug 29, 2022 Time Seen by Provider: 09:00 Subjective/Events-last exam 08/29/2022: Much improved status Pain controlled Completing PO abx now O2 maintained No falls BM+ Review of Systems General: Fatigue, Malaise Objective Exam Vital Signs Vital Signs Date Time Temp Pulse Resp B/P (MAP) Pulse Ox O2 Delivery O2 Flow Rate FiO2 08/29/22 20:20 Nasal Cannula 3.00 08/29/22 20:00 36.5 79 20 109/65 (80) 94 Capillary Refill : General Appearance: No Apparent Distress, WD/WN, Chronically ill, Thin HEENT: PERRL/EOMI, Normal ENT Inspection, Pharynx Normal Neck: Full Range of Motion, Normal Inspection, Non Tender, Supple, Carotid Bruit Respiratory: Chest Non Tender, Lungs Clear, No Accessory Muscle Use, No Respiratory Distress, Decreased Breath Sounds Cardiovascular: No Edema, No Gallop, No JVD, No Murmur, Normal Peripheral Pulses, Irregularly Irregular Gastrointestinal: Normal Bowel Sounds, No Organomegaly, No Pulsatile Mass, Non Tender, Soft Back: Normal Inspection, No CVA Tenderness, No Vertebral Tenderness Extremity: Normal Capillary Refill, Normal Inspection, Normal Range of Motion, Non Tender, No Calf Tenderness, No Pedal Edema Neurologic/Psychiatric: Alert, Oriented x3, Normal Mood/Affect, media specialist II-XII Norm as Tested, Abnormal Gait, Depressed Affect, Motor Weakness (right leg) Skin: Normal Color, Warm/Dry Lymphatic: No Adenopathy Results/Procedures Lab Laboratory Tests 08/29/22 05:33 Patient resulted labs reviewed. FIM Transfers Therapy Code Descriptions/Definitions Functional [place] Measure: 0=Not Assessed/NA 4=Minimal Assistance 1=Total Assistance 5=Supervision or Setup 2=Maximal Assistance 6=Modified [place] 3=Moderate Assistance 7=Complete IndependenceSCALE: Activities may be completed with or without assistive devices. 6-Hpbsadlqhi-szpazac completes the activity by him/herself with no assistance from a helper. 5-Set-up or Clean-up Assistance-helper sets up or cleans up; patient completes activity. [place] assists only prior to or following the activity. 4-Supervision or Touching Assistance-helper provides verbal cues and/or touching/steadying and/or contact guard assistance as patient completes activity. Assistance may be provided throughout the activity or intermittently. 3-Partial/Moderate Assistance-helper does LESS THAN HALF the effort. [place] lifts, holds or supports trunk or limbs, but provides less than half the effort. 2-Substantial/Maximal Assistance-helper does MORE THAN HALF the effort. [place] lifts or holds trunk or limbs and provides more than half the effort. 1-Osotaxvxe-nlchwm does ALL the effort. Patient does none of the effort to complete the activity. Or, the assistance of 2 or more helpers is required for the patient to complete the activity. If activity was not attempted, code reason: 7-Patient Refused. 9-Not Applicable-not attempted and the patient did not perform the activity before the current illness, exacerbation or injury. 10-Not Attempted due to Environmental Limitations-(lack of equipment, weather restraints, etc.). 88-Not Attempted due to Medical Conditions or Safety Concerns. Roll Left to Right (QC): 3 Sit to Lying (QC): 3 Sit to Stand (QC): 3 Chair/Spj-ji-Bgmxw Xfer(QC): 4 Car Transfer (QC): 3 Gait Training Does the Patient Walk?: Yes Walk 10 feet (QC): 4 Walk 50 ft with 2 Turns(QC): 88 Walk 150 ft (QC): 88 Walking 10ft/uneven surface-QC: 88 Gait Assistive Device: FWW Wheelchair Training Does the Pt Use a Wheelchair?: Yes Distance: 120'x2 Wheel 50 ft with 2 turns (QC): 3 Wheel 150 ft (QC): 88 Type of Wheelchair: Manual Stair Training 1 Step (curb) (QC): 88 4 Steps (QC): 88 12 Steps (QC): 88 Balance Picking up an Object (QC): 4 (CGA using a head shipper) ADL-Treatment Eating (QC): 5 (set up with lunch) Oral Hygiene (QC): 4 (Supervision) Shower/Bathe Self (QC): 3 (Min A with BLEs lower legs/feet.) Upper Body Dressing (QC): 5 Lower Body Dressing (QC): 2 (Max A with threading pants. slight assist with pant hike. Pt wore tighter fitting pants ) On/Off Footwear (QC): 3 (Mod A overall. Pt able to doff, assist to don.) Toileting Hygiene (QC): 3 (Min A with pant hike.) Assessment/Plan Assessment and Plan Assess & Plan/Chief Complaint Assessment: Right hip fracture s/p repair s/p HAP with hypoxic and hypercapneic respiratory failure requiring transfer to ICU from ARU now back to ARU again Chronic AF OAC maintained HTN HLP Parkinson's COPD Post op anemia acute blood loss requiring IV iron infusions Iron deficiency B12 def Osteoporosis Plan: Cefdinir to complete PNA treatment Pain control Monitor labs PT OT protocol 08/29/2022: Pain control Monitor BP (1) Closed right hip fracture Status: Acute (2) Paroxysmal atrial fibrillation (3) HLD (hyperlipidemia) (4) Parkinson's disease (5) Hypertension (6) Acute on chronic respiratory failure with hypoxia and hypercapnia FLORENCIA TAPIA DO Aug 29, 2022 08:55
--- NOTE | 2022-08-29 08:55 | Individualized Plan of Care ---
Individualized Plan of Care Rehab Nursing IPOC Order Admission Date Aug 28, 2022 at 10:45 Current Orders Orders Admission Arrival Bed Request (08/28/22 10:45) Admission Order(Inpt,Obs,Sdc) (08/28/22 11:04) Noel Sharma (08/28/22 11:04) Sequential Compression Device (08/28/22 11:04) Historical Site Guide-Inpt Rehab Con (08/28/22 11:04) Rehab Nursing Orders-Ipoc (08/28/22 11:04) Physical Therapy Rehab Orders (08/28/22 11:04) Occupational Therapy Rehab Ord (08/28/22 11:04) Speech Therapy Rehab Orders (08/28/22 11:04) Cbc With Automated Diff (08/29/22 06:00) Comprehensive Metabolic Panel (08/29/22 06:00) Precautions (Aru) (08/28/22 11:04) Weekly Weight WEEK (08/28/22 11:04) Rehab-Intensity Of Therapy (08/28/22 11:04) Initiate Admission Nursing Pro .admission (08/28/22 11:04) Alprazolam Tablet (Xanax Tablet) (08/28/22 11:15) Calcium Carbonate Chew Tablet (Antacid C (08/28/22 11:15) Diphenhydramine Tablet (Benadryl Tablet) (08/28/22 11:15) Docusate Sodium Capsule (Colace Capsule) (08/28/22 21:00) Docusate Sodium Capsule (Colace Capsule) (08/28/22 11:15) Bisacodyl Suppository (Dulcolax Supposit (08/28/22 11:15) Lactulose Oral Solution (Enulose Oral So (08/28/22 11:15) Na Phos/Na Biphos Enema (Fleet Enema Timi (08/28/22 11:15) Guaifenesin/Codeine Syrup (Robitussin Ac (08/28/22 11:15) Loperamide Tablet (Imodium Tablet) (08/28/22 11:15) Melatonin Tablet (Melatonin Tablet) (08/28/22 11:15) Polyethylene Glycol Powder Pkt (Miralax (08/28/22 21:00) Ondansetron Oral Dissolve Tab (Zofran (08/28/22 11:15) Senna S Tablet (Senokot S Tablet) (08/28/22 21:00) Acetaminophen Tablet/Caplet (Tylenol T (08/28/22 11:15) Initiate Admission Nursing Pro .admission (08/28/22 11:04) Hydrocodone/Apap 5/325 Tablet (Lortab 5 (08/28/22 11:15) Cefdinir Capsule (Omnicef Capsule) (08/28/22 21:00) General/Regular (08/28/22 Dinner) Oxygen Delivery Set Up (08/28/22 19:48) Oxygen-Administer 07,19 (08/28/22 19:48) Code/Resuscitation (08/28/22 19:59) Incentive Spirometry (Nursing) Q2H (08/28/22 19:59) Sequential Compression Device (08/28/22 19:59) Noel Hose ,21 (08/28/22 19:59) Alprazolam Tablet (Xanax Tablet) (08/28/22 20:00) Albuterol Pre-Mix Nebs (Rt) (Proventil (08/28/22 20:00) Apixaban Tablet (Eliquis Tablet) (08/28/22 21:00) Atorvastatin Tablet (Lipitor Tablet) (08/28/22 21:00) Diphenhydramine Injection (Benadryl Inje (08/28/22 20:00) Diphenhydramine Tablet (Benadryl Tablet) (08/28/22 20:00) Carbidopa/Levodopa 25/100 (Sinemet 25/10 (08/29/22 07:00) Cyanocobalamin Tablet (Vitamin B-12 Tabl (08/29/22 07:00) Docusate Sodium Capsule (Colace Capsule) (08/28/22 20:00) Bisacodyl Suppository (Dulcolax Supposit (08/28/22 20:00) Lactulose Oral Solution (Enulose Oral So (08/28/22 20:00) Flecainide Tablet (Tambocor Tablet) (08/28/22 21:00) Hydrocodone/Apap 5/325 Tablet (Lortab 5 (08/28/22 20:00) Hydromorphone Injection (Dilaudid Inject (08/28/22 20:00) Haloperidol Injection (Haldol Injectio (08/28/22 20:00) Haloperidol Tablet (Haldol Tablet) (08/28/22 20:00) Lorazepam Injection (Ativan Injection) (08/28/22 20:00) Lorazepam Tablet (Ativan Tablet) (08/28/22 20:00) Loperamide Tablet (Imodium Tablet) (08/28/22 20:00) Melatonin Tablet (Melatonin Tablet) (08/28/22 20:00) Magnesium Hydroxide Oral Susp (Mom Oral (08/28/22 20:00) Polyethylene Glycol Powder Pkt (Miralax (08/28/22 20:00) Antacid Suspension (Mylanta Suspension (08/28/22 20:00) Na Phos/Na Biphos Enema (Fleet Enema Timi (08/28/22 20:00) Olanzapine Tablet (Zyprexa Tablet) (08/28/22 20:00) Sennosides Tablet (Senokot Tablet) (08/28/22 21:00) Sertraline Tablet (Zoloft Tablet) (08/29/22 09:00) Simethicone Tablet (Mylicon Chewable Tab (08/28/22 20:00) Therapeutic Multivitamin Tab (Vitamins, (08/29/22 07:00) Calcium Carbonate Chew Tablet (Antacid C (08/28/22 20:00) Acetaminophen Tablet/Caplet (Tylenol T (08/28/22 20:00) Ondansetron Injection (Zofran Injectio (08/28/22 20:00) Ondansetron Oral Dissolve Tab (Zofran (08/28/22 20:00) Amlodipine Tablet (Norvasc Tablet) (08/29/22 09:00) Diazepam Tablet (Valium Tablet) (08/28/22 21:00) Fentanyl Inj (Sublimaze Injection) (08/28/22 20:00) Guaifenesin/Codeine Syrup (Robitussin Ac (08/28/22 20:00) Ropinirole Tablet (Requip Tablet) (08/28/22 21:00) Consult Orthopedic Surgery (08/28/22 19:59) Mat Initiate Protocol (3/14/23 19:59) Svn Small Volume Nebulizer (08/28/22 19:59) Ensure Plus Vanilla (08/28/22 20:25) Iron Sucrose Injection (Venofer Injectio (08/29/22 09:00) Patient Visit (08/28/22 ) Pt Eval Moderate Complexity (08/28/22 ) Functional Activities, Ea 15 (08/28/22 ) Patient Visit (08/29/22 ) Exercise Therap, Ea 15 Min (08/29/22 ) Functional Activities, Ea 15 (08/29/22 ) Rehab Nursing Orders: Ongoing Assess. of Cognitive Status, Ongoing Assess. of Function Status, Bladder Management, Bladder Scan, Bladder Training, Bowel Management, Bowel Training, Disease Management & Educaiton, DVT Prophylaxis, Fall Prevention, Fluid/Electrolyte/Nutrition Mgmt, Infection Prevention, Medication Management & Education, Management of Risks & Complications, Management of Skin Intergrity, Nutrition Management, Pain Management, Patient/Family Support, Safety Management, Wound Management Intensity of Therapy to be met Patient to be seen: Min.3h per day/5 of 7d PT IPOC Problem List: Activity Tolerance, Functional Strength, Safety, Balance, Gait, Transfer, Bed Mobility, ROM Treatment Plan: Continue Plan of Care Bed Mobility, Education, Functional Activity Junior, Functional Strength, Group T herapy, Gait, Safety, Therapeutic Exercise, Transfers Treatment Duration: Sep 11, 2022 Frequency: At least 5 of 7 days/Wk (IRF) Estimated Hrs Per Day: 1.5 hours per day OT IPOC Problems: Decreased Activ Tolerance, Decreased UE Strength, Impaired Funct Balance, Impaired I ADL's, Impaired Self-Care Skills OT Treatment, Training and Edu: Yes Plan of Care: ADL Retraining, Functional Mobility, Group Exercise/Act as Ind, UE Funct Exercise/Act Treatment Duration: Sep 21, 2022 Frequency: At least 5 of 7 days/Wk (IRF) Estimated Hrs Per Day: 1.[address] IPOC Speech Therapy Treatment Plan: Continue Plan of Care Treatment Duration: Aug 29, 2022 Frequency: Modified Program (IRF) Estimated Hrs Per Day: Other Historical Site Guide/Case Mgmt Historical Site Guide/Case Managemen: Discharge Planning Dietitian/[place] Dietitian/[place] to monitor nutritional status and make changes and/or recommendations as needed and work with speech pathology on dietary upgrades as the occur. Physician IPOC Medical Issues being managed closely and that require the 24 hour availability of a physician: Recent hip fracture complicated with PNA requiring ICU stay will require close monitoring of respiratory status and overall cognition to monitor for decompensation Medical Issues: Bowel/Bladder Function, DVT Prophylaxis, Falls Precautions, Fluid/Electrolyte/Nutrition Balance, Infection Protection, Pain Management, Wound Care Brief Synthesis of Preadmission Screen, Post-Admission Evaluation, and Therapy Evaluations: PT OT will focus on regaining function with the use of AD in order to resume ambulation and increase independence in ADL's in order to return home Medical Prognosis: Good Anticipated Length of Stay: 10 days FLORENCIA TAPIA DO Aug 29, 2022 08:55
--- NOTE | 2022-08-29 09:25 | Physical Therapy Daily Note ---
PT Daily Note-Current Subjective Patient in recliner pre tx, agrees to PT, has 6/10 pain in right hip. Pain Section J - Health Conditions 1. Rarely or not at all 2. Occasionally 3. Frequently 4. Almost constantly 8. Unable to answer Pain Effect on Sleep: 2 Pain Interference with Therapy: 2 Pain Interference w/Day-to-Day: 2 Appearance Patient in recliner post tx with nurse call, phone, tray, chair alarm on, all needs met. Mental Status Patient Orientation: Person, Place, Situation Attachments: Oxygen Transfers SCALE: Activities may be completed with or without assistive devices. 9-Qbzklnaepz-lgcyuxj completes the activity by him/herself with no assistance from a helper. 5-Set-up or Clean-up Assistance-helper sets up or cleans up; patient completes activity. [place] assists only prior to or following the activity. 4-Supervision or Touching Assistance-helper provides verbal cues and/or touching/steadying and/or contact guard assistance as patient completes activity. Assistance may be provided throughout the activity or intermittently. 3-Partial/Moderate Assistance-helper does LESS THAN HALF the effort. [place] lifts, holds or supports trunk or limbs, but provides less than half the effort. 2-Substantial/Maximal Assistance-helper does MORE THAN HALF the effort. [place] lifts or holds trunk or limbs and provides more than half the effort. 7-Ffxysufje-nkwrjz does ALL the effort. Patient does none of the effort to complete the activity. Or, the assistance of 2 or more helpers is required for the patient to complete the activity. If activity was not attempted, code reason: 7-Patient Refused. 9-Not Applicable-not attempted and the patient did not perform the activity before the current illness, exacerbation or injury. 10-Not Attempted due to Environmental Limitations-(lack of equipment, weather restraints, etc.). 88-Not Attempted due to Medical Conditions or Safety Concerns. Sit to Stand (QC): 3 Chair/Wre-kt-Lonbs Xfer(QC): 4 Min assist for sit to stand from lower surfaces, cues for hand placement and positioning. Weight Bearing Right Lower Extremity: Right Weight Bearing/Tolerated Gait Training Distance: 60'x4 Walk 10 feet (QC): 4 Walk 50 ft with 2 Turns(QC): 4 Gait Persons Needed: 1 Gait Assistive Device: FWW Patient has antalgic ambulation, has step-through gait pattern but poor right foot clearance (slides across floor), very kyphotic Exercises Standing: Heel/toe raises, Marching, Mini squats Standing Reps: 15 LAQ alternating for 5 min NuStep Minutes: 15 NuStep Workload: 3 Treatments transfers, ambulation, strengthening, ROM Assessment Current Status: Fair Progress improving ambulation and endurance, has a hard time stepping with right leg PT Custodial Goals Cafeteria Worker Goals PT Cafeteria Worker Goals Time Frame: Sep 11, 2022 Roll Left & Right (QC): 6 Sit to Lying (QC): 6 Lying-Sitting on Side/Bed(QC): 6 Sit to Stand (QC): 6 Chair/Xaw-vb-Mcrxx Xfer(QC): 4 (SBA) Toilet Transfer (QC): 4 (SBA) Car Transfer (QC): 4 (SBA) Does the Patient Walk: Yes Walk 10 feet (QC): 4 (SBA) Walk 50ft with 2 Turns (QC): 4 (SBA) Walk 150 ft (QC): 4 (SBA) Walking 10ft on Uneven Surface: 4 (SBA) 1 Step (curb) (QC): 4 (CGA) 4 Steps (QC): 4 (CGA) 12 Steps (QC): 88 Picking up an Object (QC): 6 Wheel 50 feet with 2 turns (QC: 9 Wheel 150 feet: 9 PT Plan Problem List Problem List: Activity Tolerance, Functional Strength, Safety, Balance, Gait, Transfer, Bed Mobility, ROM Treatment/Plan Treatment Plan: Continue Plan of Care Treatment Plan: Bed Mobility, Education, Functional Activity Junior, Functional Strength, Group Therapy, Gait, Safety, Therapeutic Exercise, Transfers Treatment Duration: Sep 11, 2022 Frequency: At least 5 of 7 days/Wk (IRF) Estimated Hrs Per Day: 1.5 hours per day Patient and/or Family Agrees t: Yes Safety Risks/Education Patient Education: Gait Training, Transfer Techniques, Correct Positioning, Safety Issues Teaching Recipient: Patient Teaching Methods: Demonstration, Discussion Response to Teaching: Reinforcement Needed Time Time In: 0800 Time Out: 929 DATE: Aug 29, 2022 Total Billed Treatment Time: 90 Total Billed Treatment 1 visit EX 45' FA 45' LINDA MICHELE PT Aug 29, 2022 09:25
--- NOTE | 2022-08-29 11:57 | Occupational Ther Daily Note ---
OT Current Status-Daily Note Subjective Pt alert, sitting in recliner. Pt agrees to therapy. Pt c/o being uncomfortable and requests to lay down at end of session. Nrsg in room to restart IV. Mental Status/Objective Patient Orientation: Person, Place, Time, Situation Attachments: IV, Oxygen ADL-Treatment Pt will shower tomorrow. Pt ambulated to bathroom to complete toileting with SBA for transfer and hygiene. Mod A for EOB to supine at end of session. Call light/phone in reach. All needs met in room. Therapy Code Descriptions/Definitions Functional [place] Measure: 0=Not Assessed/NA 4=Minimal Assistance 1=Total Assistance 5=Supervision or Setup 2=Maximal Assistance 6=Modified [place] 3=Moderate Assistance 7=Complete IndependenceSCALE: Activities may be completed with or without assistive devices. 8-Uftpybakrg-zravebo completes the activity by him/herself with no assistance from a helper. 5-Set-up or Clean-up Assistance-helper sets up or cleans up; patient completes activity. [place] assists only prior to or following the activity. 4-Supervision or Touching Assistance-helper provides verbal cues and/or touching/steadying and/or contact guard assistance as patient completes activity. Assistance may be provided throughout the activity or intermittently. 3-Partial/Moderate Assistance-helper does LESS THAN HALF the effort. [place] lifts, holds or supports trunk or limbs, but provides less than half the effort. 2-Substantial/Maximal Assistance-helper does MORE THAN HALF the effort. [place] lifts or holds trunk or limbs and provides more than half the effort. 5-Effdtljdz-xsxcny does ALL the effort. Patient does none of the effort to complete the activity. Or, the assistance of 2 or more helpers is required for the patient to complete the activity. If activity was not attempted, code reason: 7-Patient Refused. 9-Not Applicable-not attempted and the patient did not perform the activity before the current illness, exacerbation or injury. 10-Not Attempted due to Environmental Limitations-(lack of equipment, weather restraints, etc.). 88-Not Attempted due to Medical Conditions or Safety Concerns. Toileting Hygiene (QC): 4 Toilet Transfer (QC): 4 Other Treatment Pt completed B UE exercises to strengthen fine/gross motor for daily functional tasks. Skilled instruction for correct technique and modifications when needed. OT Short Term Goals Short Term Goals Time Frame: Sep 07, 2022 Upper body dressin Lower body dressin Putting on/taking off footwear: 5 OT Usp Goals Usp Goals Time Frame: Sep 21, 2022 Acute change in mental status: 0 Inattention: 0 Disorganized thinkin Altered level of consciousness: 0 Eating (QC): 6 Oral Hygiene (QC): 6 Toileting Hygiene (QC): 6 Shower/Bathe Self (QC): 5 Upper Body Dressing (QC): 6 Lower Body Dressing (QC): 6 On/Off Footwear (QC): 6 Additional Goals: 1-Demonstrate ADL Tasks, 2-Verbalize Understanding, 3- ImproveStrength/Junior 1=Demonstrate adherence to instructed precautions during ADL tasks. 2=Patient will verbalize/demonstrate understanding of assistive devices/modifications for ADL. 3=Patient will improve strength/tolerance for activity to enable patient to perform ADL's. OT Education/Plan Problem List/Assessment Assessment: Decreased Activ Tolerance, Impaired Self-Care Skills Discharge Recommendations Plan/Recommendations: Continue POC Treatment Plan/Plan of Care Patient would benefit from OT for education, treatment and training to promote independence in ADL's, mobility, safety and/or upper extremity function for ADL's. Plan of Care: ADL Retraining, Functional Mobility, Group Exercise/Act as Ind, UE Funct Exercise/Act Treatment Duration: Sep 21, 2022 Frequency: At least 5 of 7 days/Wk (IRF) Estimated Hrs Per Day: 1.5 hours per day Agreement: Yes Rehab Potential: Fair Time Start Time: 11:00 Stop Time: 12:00 DATE: Aug 29, 2022 Total Time Billed (hr/min): 60 Billed Treatment Time 1 visit-ADL 1 (10 min) FA 1 (15 min) EX 2 (35 min) ASTER ALEJANDRE Aug 29, 2022 11:57
--- NOTE | 2022-08-29 12:58 | Occupational Ther Daily Note ---
OT Current Status-Daily Note Subjective Pt alert, lying in bed. Pt agrees to therapy. Daughters present in room. Pt declines any OOB tasks. Mental Status/Objective Patient Orientation: Person, Place, Time, Situation Attachments: IV, Oxygen ADL-Treatment Independent with eating. Pt educated on LBD AE and where to order items. Pt verbalized understanding of each item, declines to attempt at this time. Daughters to bring in pt's socks and shoes for pt to wear during therapy. After session, pt lying in bed with call light/phone in reach. All needs met in room. Therapy Code Descriptions/Definitions Functional [place] Measure: 0=Not Assessed/NA 4=Minimal Assistance 1=Total Assistance 5=Supervision or Setup 2=Maximal Assistance 6=Modified [place] 3=Moderate Assistance 7=Complete IndependenceSCALE: Activities may be completed with or without assistive devices. 9-Kqxrxloytb-yqvmmle completes the activity by him/herself with no assistance from a helper. 5-Set-up or Clean-up Assistance-helper sets up or cleans up; patient completes activity. [place] assists only prior to or following the activity. 4-Supervision or Touching Assistance-helper provides verbal cues and/or touching/steadying and/or contact guard assistance as patient completes activity. Assistance may be provided throughout the activity or intermittently. 3-Partial/Moderate Assistance-helper does LESS THAN HALF the effort. [place] lifts, holds or supports trunk or limbs, but provides less than half the effort. 2-Substantial/Maximal Assistance-helper does MORE THAN HALF the effort. [place] lifts or holds trunk or limbs and provides more than half the effort. 7-Txexifxmg-gupwje does ALL the effort. Patient does none of the effort to complete the activity. Or, the assistance of 2 or more helpers is required for the patient to complete the activity. If activity was not attempted, code reason: 7-Patient Refused. 9-Not Applicable-not attempted and the patient did not perform the activity before the current illness, exacerbation or injury. 10-Not Attempted due to Environmental Limitations-(lack of equipment, weather restraints, etc.). 88-Not Attempted due to Medical Conditions or Safety Concerns. Eating (QC): 6 Education OT Patient Education: Modified ADL techniques, Use of adapted equipment Teaching Recipient: Patient, Family Teaching Methods: Demonstration, Discussion Response to Teaching: Verbalize Understanding, Return Demonstration, Reinforcement Needed OT Short Term Goals Short Term Goals Time Frame: Sep 07, 2022 Upper body dressin Lower body dressin Putting on/taking off footwear: 5 OT Girls Tennis Coach Goals Girls Tennis Coach Goals Time Frame: Sep 21, 2022 Acute change in mental status: 0 Inattention: 0 Disorganized thinkin Altered level of consciousness: 0 Eating (QC): 6 Oral Hygiene (QC): 6 Toileting Hygiene (QC): 6 Shower/Bathe Self (QC): 5 Upper Body Dressing (QC): 6 Lower Body Dressing (QC): 6 On/Off Footwear (QC): 6 Additional Goals: 1-Demonstrate ADL Tasks, 2-Verbalize Understanding, 3- ImproveStrength/Junior 1=Demonstrate adherence to instructed precautions during ADL tasks. 2=Patient will verbalize/demonstrate understanding of assistive devices/modifications for ADL. 3=Patient will improve strength/tolerance for activity to enable patient to perform ADL's. OT Education/Plan Problem List/Assessment Assessment: Decreased Activ Tolerance, Impaired Self-Care Skills Discharge Recommendations Plan/Recommendations: Continue POC Treatment Plan/Plan of Care Patient would benefit from OT for education, treatment and training to promote independence in ADL's, mobility, safety and/or upper extremity function for ADL's. Plan of Care: ADL Retraining, Functional Mobility, Group Exercise/Act as Ind, UE Funct Exercise/Act Treatment Duration: Sep 21, 2022 Frequency: At least 5 of 7 days/Wk (IRF) Estimated Hrs Per Day: 1.5 hours per day Agreement: Yes Rehab Potential: Fair Time Start Time: 12:30 Stop Time: 13:00 DATE: Aug 29, 2022 Total Time Billed (hr/min): 30 Billed Treatment Time 1 visit-ADL 2 (30 min) ASTER ALEJANDRE Aug 29, 2022 12:58
--- NOTE | 2022-08-29 13:25 | Speech Therapy Progress Note ---
Therapy Progress Note ST received prior cognitive linguistic evaluation orders on the patient, chart reviewed, and discussion observed regarding the patient at the most recent ARU plan of care meeting. At this time, a concern regarding the patient's cognitive function is not present, as the team states the patient presents with increased "cognitive clarity" in comparison to the prior admission. ST will remain present to complete evaluation, as needed. Thank you. VIRIDIANA GONZALEZ Aug 29, 2022 13:25
[2022-08-29 20:00] VITALS: BP 109/65
[2022-08-29] MEDS: AtorvaSTATin TABLET 10 MG TABLET PO SCH (20:17)
[2022-08-30] MEDS: HYDROcodone/APAP 5 MG/325 MG (LORTAB) TAB PO PRN ×4 (01:42→23:33)
--- NOTE | 2022-08-30 05:12 | PM&R Progress Note ---
Subjective HPI/CC On Admission Date Seen by Provider: Aug 30, 2022 Time Seen by Provider: 12:00 Subjective/Events-last exam 08/30/2022: Patient having a good day Family at bedside Pain controlled Wants to DC soon 08/29/2022: Much improved status Pain controlled Completing PO abx now O2 maintained No falls BM+ Review of Systems General: Fatigue, Malaise Objective Exam Vital Signs Vital Signs Date Time Temp Pulse Resp B/P (MAP) Pulse Ox O2 Delivery O2 Flow Rate FiO2 08/30/22 19:57 36.5 78 16 133/78 (96) 94 Nasal Cannula 3.00 Capillary Refill : General Appearance: No Apparent Distress, WD/WN, Chronically ill, Thin HEENT: PERRL/EOMI, Normal ENT Inspection, Pharynx Normal Neck: Full Range of Motion, Normal Inspection, Non Tender, Supple, Carotid Bruit Respiratory: Chest Non Tender, Lungs Clear, No Accessory Muscle Use, No Respiratory Distress, Decreased Breath Sounds Cardiovascular: No Edema, No Gallop, No JVD, No Murmur, Normal Peripheral Pulses, Irregularly Irregular Gastrointestinal: Normal Bowel Sounds, No Organomegaly, No Pulsatile Mass, Non Tender, Soft Back: Normal Inspection, No CVA Tenderness, No Vertebral Tenderness Extremity: Normal Capillary Refill, Normal Inspection, Normal Range of Motion, Non Tender, No Calf Tenderness, No Pedal Edema Neurologic/Psychiatric: Alert, Oriented x3, Normal Mood/Affect, pinsetter mechanic helper II-XII Norm as Tested, Abnormal Gait, Depressed Affect, Motor Weakness (right leg) Skin: Normal Color, Warm/Dry Lymphatic: No Adenopathy Results/Procedures Lab Patient resulted labs reviewed. FIM Transfers Therapy Code Descriptions/Definitions Functional [place] Measure: 0=Not Assessed/NA 4=Minimal Assistance 1=Total Assistance 5=Supervision or Setup 2=Maximal Assistance 6=Modified [place] 3=Moderate Assistance 7=Complete IndependenceSCALE: Activities may be completed with or without assistive devices. 6-Ncbgxclcrb-uzmnqox completes the activity by him/herself with no assistance from a helper. 5-Set-up or Clean-up Assistance-helper sets up or cleans up; patient completes activity. [place] assists only prior to or following the activity. 4-Supervision or Touching Assistance-helper provides verbal cues and/or touching/steadying and/or contact guard assistance as patient completes activity. Assistance may be provided throughout the activity or intermittently. 3-Partial/Moderate Assistance-helper does LESS THAN HALF the effort. [place] lifts, holds or supports trunk or limbs, but provides less than half the effort. 2-Substantial/Maximal Assistance-helper does MORE THAN HALF the effort. [place] lifts or holds trunk or limbs and provides more than half the effort. 0-Eulyidvpk-kclqlh does ALL the effort. Patient does none of the effort to complete the activity. Or, the assistance of 2 or more helpers is required for the patient to complete the activity. If activity was not attempted, code reason: 7-Patient Refused. 9-Not Applicable-not attempted and the patient did not perform the activity before the current illness, exacerbation or injury. 10-Not Attempted due to Environmental Limitations-(lack of equipment, weather restraints, etc.). 88-Not Attempted due to Medical Conditions or Safety Concerns. Roll Left to Right (QC): 3 Sit to Lying (QC): 3 Sit to Stand (QC): 3 Chair/Rtn-cv-Oruzr Xfer(QC): 4 Car Transfer (QC): 3 Gait Training Does the Patient Walk?: Yes Distance: 60'x4 Walk 10 feet (QC): 4 Walk 50 ft with 2 Turns(QC): 4 Walk 150 ft (QC): 88 Walking 10ft/uneven surface-QC: 88 Gait Persons Needed: 1 Gait Assistive Device: FWW Wheelchair Training Does the Pt Use a Wheelchair?: Yes Distance: 120'x2 Wheel 50 ft with 2 turns (QC): 3 Wheel 150 ft (QC): 88 Type of Wheelchair: Manual Stair Training 1 Step (curb) (QC): 88 4 Steps (QC): 88 12 Steps (QC): 88 Balance Picking up an Object (QC): 4 (CGA using a chief marketing officer) ADL-Treatment Eating (QC): 6 Oral Hygiene (QC): 4 (Supervision) Shower/Bathe Self (QC): 3 (Min A with BLEs lower legs/feet.) Upper Body Dressing (QC): 5 Lower Body Dressing (QC): 2 (Max A with threading pants. slight assist with pant hike. Pt wore tighter fitting pants ) On/Off Footwear (QC): 3 (Mod A overall. Pt able to doff, assist to don.) Toileting Hygiene (QC): 4 Toilet Transfer (QC): 4 Assessment/Plan Assessment and Plan Assess & Plan/Chief Complaint Assessment: Right hip fracture s/p repair s/p HAP with hypoxic and hypercapneic respiratory failure requiring transfer to ICU from ARU now back to ARU again Chronic AF OAC maintained HTN HLP Parkinson's COPD Post op anemia acute blood loss requiring IV iron infusions Iron deficiency B12 def Osteoporosis Plan: Cefdinir to complete PNA treatment Pain control Monitor labs PT OT protocol 08/29/2022: Pain control Monitor BP 08/30/2022: Monitor pain Monitor labs (1) Closed right hip fracture Status: Acute (2) Paroxysmal atrial fibrillation (3) HLD (hyperlipidemia) (4) Parkinson's disease (5) Hypertension (6) Acute on chronic respiratory failure with hypoxia and hypercapnia FLORENCIA TAPIA DO Aug 30, 2022 05:12
[2022-08-30] MEDS: MULTIVIT W/MINERALS TAB (THERAGRAN M) PO SCH (06:26)
[2022-08-30] MEDS: CYANOCOBALAMIN 1,000 MCG (VITAMIN B-12) TABLET PO SCH (06:26)
[2022-08-30] MEDS: SINEMET 25/100 (CARBIDOPA/LEVODOPA) TAB PO SCH ×5 (06:26→18:04)
--- NOTE | 2022-08-30 07:48 | Occupational Ther Daily Note ---
OT Current Status-Daily Note Subjective Pt in recliner eating breakfast, agreeable to OT tx with focus on ADLs. Pt rates pain 8/10 post tx,x RN notified of pt's request for pain medication. Mental Status/Objective Patient Orientation: Normal For Age Attachments: Oxygen ADL-Treatment Therapy Code Descriptions/Definitions Functional [facility] Measure: 0=Not Assessed/NA 4=Minimal Assistance 1=Total Assistance 5=Supervision or Setup 2=Maximal Assistance 6=Modified [facility] 3=Moderate Assistance 7=Complete IndependenceSCALE: Activities may be completed with or without assistive devices. 7-Mmjugxpibz-ctzidsu completes the activity by him/herself with no assistance from a helper. 5-Set-up or Clean-up Assistance-helper sets up or cleans up; patient completes activity. [place] assists only prior to or following the activity. 4-Supervision or Touching Assistance-helper provides verbal cues and/or touching/steadying and/or contact guard assistance as patient completes activity. Assistance may be provided throughout the activity or intermittently. 3-Partial/Moderate Assistance-helper does LESS THAN HALF the effort. [place] lifts, holds or supports trunk or limbs, but provides less than half the effort. 2-Substantial/Maximal Assistance-helper does MORE THAN HALF the effort. [place] lifts or holds trunk or limbs and provides more than half the effort. 1-Biqhegjct-ssiirz does ALL the effort. Patient does none of the effort to complete the activity. Or, the assistance of 2 or more helpers is required for the patient to complete the activity. If activity was not attempted, code reason: 7-Patient Refused. 9-Not Applicable-not attempted and the patient did not perform the activity before the current illness, exacerbation or injury. 10-Not Attempted due to Environmental Limitations-(lack of equipment, weather restraints, etc.). 88-Not Attempted due to Medical Conditions or Safety Concerns. Eating (QC): 6 Shower/Bathe Self (QC): 4 (CGA in stand) Upper Body Dressing (QC): 4 (CGA, pt attempted to don in standing requiring steadying assistance.) Lower Body Dressing (QC): 3 (Min A with threading LEs.) On/Off Footwear: 3 (Min A donning socks using sock aide. Pt able to doff without AE. Pt able to don/doff slip on shoes without AE) Other Treatment Pt in recliner eating breakfast, able to manipulate utensils to cut food and bring to mouth without difficulty. Sit to stand from recliner, min A, then CGA using FWW to transfer to [place]. Pt doffed clothes without AD, CGA in stand. Pt completed shower, using LH sponge as needed for LEs. Pt donned clothes, able to don slip on shoes and LB clothing without AD. During dressing, OT educated pt on safety of sitting down while donning clothes, she verbalized understanding but required VCs for safety. Pt used FWW to transfer to recliner. Education provided on sock aide, pt demo'd understanding (min A required donning socks using AE). Post tx, pt in recliner, call light in reach and all needs met. chair alarm act ivated Education OT Patient Education: Correct positioning, Energy conservation, Modified ADL techniques, Progress toward Goal/Update tx plan, Purpose of tx/functional activities, Rehab process Teaching Recipient: Patient Teaching Methods: Discussion Response to Teaching: Verbalize Understanding OT Short Term Goals Short Term Goals Time Frame: Sep 07, 2022 Upper body dressin Lower body dressin Putting on/taking off footwear: 5 OT Ice Skating Teacher Goals Ice Skating Teacher Goals Time Frame: Sep 21, 2022 Acute change in mental status: 0 Inattention: 0 Disorganized thinkin Altered level of consciousness: 0 Eating (QC): 6 Oral Hygiene (QC): 6 Toileting Hygiene (QC): 6 Shower/Bathe Self (QC): 5 Upper Body Dressing (QC): 6 Lower Body Dressing (QC): 6 On/Off Footwear (QC): 6 Additional Goals: 1-Demonstrate ADL Tasks, 2-Verbalize Understanding, 3- ImproveStrength/Junior 1=Demonstrate adherence to instructed precautions during ADL tasks. 2=Patient will verbalize/demonstrate understanding of assistive devices/modific ations for ADL. 3=Patient will improve strength/tolerance for activity to enable patient to perform ADL's. OT Education/Plan Problem List/Assessment Assessment: Decreased Activ Tolerance, Decreased UE Strength, Impaired Funct Balance, Impaired I ADL's, Impaired Self-Care Skills Discharge Recommendations Plan/Recommendations: Continue POC Treatment Plan/Plan of Care Patient would benefit from OT for education, treatment and training to promote independence in ADL's, mobility, safety and/or upper extremity function for ADL's. Plan of Care: ADL Retraining, Functional Mobility, Group Exercise/Act as Ind, UE Funct Exercise/Act Treatment Duration: Sep 21, 2022 Frequency: At least 5 of 7 days/Wk (IRF) Estimated Hrs Per Day: 1.5 hours per day Agreement: Yes Rehab Potential: Fair Time Start Time: 07:30 Stop Time: 09:00 DATE: Aug 30, 2022 Total Time Billed (hr/min): 90 Billed Treatment Time 1, ADL 6 VASHTI DUARTE OT Aug 30, 2022 07:48
[2022-08-30 07:56] VITALS: BP 117/74
--- NOTE | 2022-08-30 09:19 | Physical Therapy Daily Note ---
PT Daily Note-Current Subjective Patient in bed pre tx, agrees to PT, has no complaints of pain. Will be co- treating with OT due to poor patient mobility, strength, endurance, severe debility, coordinate UE and LE during activity, safety and reduce risk of falls. Pain Section J - Health Conditions 1. Rarely or not at all 2. Occasionally 3. Frequently 4. Almost constantly 8. Unable to answer Pain Effect on Sleep: 2 Pain Interference with Therapy: 2 Pain Interference w/Day-to-Day: 2 Appearance Patient in bed post tx with nurse call, phone, tray, all needs met Mental Status Patient Orientation: Person, Place, Situation Attachments: PEG Tube, Batista Catheter Transfers SCALE: Activities may be completed with or without assistive devices. 5-Qecjbvipuh-frzlcuj completes the activity by him/herself with no assistance from a helper. 5-Set-up or Clean-up Assistance-helper sets up or cleans up; patient completes activity. [place] assists only prior to or following the activity. 4-Supervision or Touching Assistance-helper provides verbal cues and/or touching/steadying and/or contact guard assistance as patient completes activity. Assistance may be provided throughout the activity or intermittently. 3-Partial/Moderate Assistance-helper does LESS THAN HALF the effort. [place] lifts, holds or supports trunk or limbs, but provides less than half the effort. 2-Substantial/Maximal Assistance-helper does MORE THAN HALF the effort. [place] lifts or holds trunk or limbs and provides more than half the effort. 7-Cencsiryo-lfknxj does ALL the effort. Patient does none of the effort to complete the activity. Or, the assistance of 2 or more helpers is required for the patient to complete the activity. If activity was not attempted, code reason: 7-Patient Refused. 9-Not Applicable-not attempted and the patient did not perform the activity before the current illness, exacerbation or injury. 10-Not Attempted due to Environmental Limitations-(lack of equipment, weather restraints, etc.). 88-Not Attempted due to Medical Conditions or Safety Concerns. Roll Left & Right (QC): 3 Sit to Lying (QC): 3 Lying to Sitting/Side of Bed(Q: 3 Sit to Stand (QC): 1 Chair/Gkh-jb-Ydzyx Xfer(QC): 1 Patient sits to the side of the bed with mod assist, OT dons shoes and she is transferred to via sit to stand machine. After getting back to her room at the end of tx, patient is again transferred via sit to stand machine to bed, she is cleaned from a little BM by radiation therapy technologist and gown changed after sitting, and lays back down with mod assist, patient is placed on left side with pillow serrato pport for pressure relief. Weight Bearing Right Lower Extremity: Right Weight Bearing/Tolerated Wheelchair Training Does the Pt Use a Wheelchair?: Yes Wheel 50 ft with 2 turns (QC): 2 Type of Wheelchair: Manual 100'x2, patient propels with left arm and attempts to propel with feet but is a little too tall for this. Exercises standing in the parallel bars x3 for about 30 sec each time, assist of 2 Treatments PT performed bed mobility and transfers, standing, WC mobility, OT performed dressing, UE positioning and safety during activity, assisted with standing. Assessment Current Status: Poor Progress slightly better sit to stand, patient was able to stand completely but with assist of 2 PT Halfway Goals Halfway Goals PT Halfway Goals Time Frame: Sep 11, 2022 Roll Left & Right (QC): 6 Sit to Lying (QC): 6 Lying-Sitting on Side/Bed(QC): 6 Sit to Stand (QC): 6 Chair/Mhg-iw-Pxgvg Xfer(QC): 4 (SBA) Toilet Transfer (QC): 4 (SBA) Car Transfer (QC): 4 (SBA) Does the Patient Walk: Yes Walk 10 feet (QC): 4 (SBA) Walk 50ft with 2 Turns (QC): 4 (SBA) Walk 150 ft (QC): 4 (SBA) Walking 10ft on Uneven Surface: 4 (SBA) 1 Step (curb) (QC): 4 (CGA) 4 Steps (QC): 4 (CGA) 12 Steps (QC): 88 Picking up an Object (QC): 6 Wheel 50 feet with 2 turns (QC: 9 Wheel 150 feet: 9 PT Plan Problem List Problem List: Activity Tolerance, Functional Strength, Safety, Balance, Gait, Transfer, Bed Mobility, ROM Treatment/Plan Treatment Plan: Continue Plan of Care Treatment Plan: Bed Mobility, Education, Functional Activity Junior, Functional Strength, Group Therapy, Gait, Safety, Therapeutic Exercise, Transfers Treatment Duration: Sep 11, 2022 Frequency: At least 5 of 7 days/Wk (IRF) Estimated Hrs Per Day: 1.5 hours per day Patient and/or Family Agrees t: Yes Safety Risks/Education Patient Education: Transfer Techniques, Correct Positioning, W/C Management, Safety Issues Teaching Recipient: Patient Teaching Methods: Demonstration, Discussion Response to Teaching: Reinforcement Needed Time Time In: 0800 Time Out: 0900 DATE: Aug 30, 2022 Total Billed Treatment Time: 60 Total Billed Treatment 1 visit FA 60' co-treated with OT from [id number] LINDA MICHELE PT Aug 30, 2022 09:19
--- NOTE | 2022-08-30 09:55 | Physical Therapy Daily Note ---
PT Daily Note-Current Subjective Patient in recliner pre tx, agrees to PT, has 6/10 pain in right leg, states she has already had pain meds. Pain Section J - Health Conditions 1. Rarely or not at all 2. Occasionally 3. Frequently 4. Almost constantly 8. Unable to answer Pain Effect on Sleep: 2 Pain Interference with Therapy: 2 Pain Interference w/Day-to-Day: 2 Appearance Patient in recliner post tx with nurse call, phone, tray, all needs met. Mental Status Patient Orientation: Person, Place, Situation Attachments: Oxygen Transfers SCALE: Activities may be completed with or without assistive devices. 9-Mbharreqna-oskcdgx completes the activity by him/herself with no assistance from a helper. 5-Set-up or Clean-up Assistance-helper sets up or cleans up; patient completes activity. [place] assists only prior to or following the activity. 4-Supervision or Touching Assistance-helper provides verbal cues and/or touching/steadying and/or contact guard assistance as patient completes activity. Assistance may be provided throughout the activity or intermittently. 3-Partial/Moderate Assistance-helper does LESS THAN HALF the effort. [place] lifts, holds or supports trunk or limbs, but provides less than half the effort. 2-Substantial/Maximal Assistance-helper does MORE THAN HALF the effort. [place] lifts or holds trunk or limbs and provides more than half the effort. 0-Cfyfgzjeq-jbxeyi does ALL the effort. Patient does none of the effort to complete the activity. Or, the assistance of 2 or more helpers is required for the patient to complete the activity. If activity was not attempted, code reason: 7-Patient Refused. 9-Not Applicable-not attempted and the patient did not perform the activity before the current illness, exacerbation or injury. 10-Not Attempted due to Environmental Limitations-(lack of equipment, weather restraints, etc.). 88-Not Attempted due to Medical Conditions or Safety Concerns. Sit to Stand (QC): 4 Chair/Sgf-bw-Qtwps Xfer(QC): 4 CGA, occasional cues for hand placement and positioning Weight Bearing Right Lower Extremity: Right Weight Bearing/Tolerated Gait Training Distance: 120'x2 Walk 10 feet (QC): 4 Walk 50 ft with 2 Turns(QC): 4 Gait Persons Needed: 1 Gait Assistive Device: FWW CGA, very slow ambulation, poor foot clearance on the right side Exercises Supine Ex: Ankle pumps, Quad Set, Glut sets, Heel Slides (AAROM), Short Arc Quads, Straight leg raise (AAROM), Hip abd/add (AAROM) Supine Reps: 20 (all RLE) NuStep Minutes: 15 NuStep Workload: 4 Treatments transfers, ambulation, bed mobility, ROM, strengthening Assessment Current Status: Fair Progress improving ambulation and endurance PT Group Home Goals Passenger Brakeman Goals PT Passenger Brakeman Goals Time Frame: Sep 11, 2022 Roll Left & Right (QC): 6 Sit to Lying (QC): 6 Lying-Sitting on Side/Bed(QC): 6 Sit to Stand (QC): 6 Chair/Iyq-jn-Mocwi Xfer(QC): 4 (SBA) Toilet Transfer (QC): 4 (SBA) Car Transfer (QC): 4 (SBA) Does the Patient Walk: Yes Walk 10 feet (QC): 4 (SBA) Walk 50ft with 2 Turns (QC): 4 (SBA) Walk 150 ft (QC): 4 (SBA) Walking 10ft on Uneven Surface: 4 (SBA) 1 Step (curb) (QC): 4 (CGA) 4 Steps (QC): 4 (CGA) 12 Steps (QC): 88 Picking up an Object (QC): 6 Wheel 50 feet with 2 turns (QC: 9 Wheel 150 feet: 9 PT Plan Problem List Problem List: Activity Tolerance, Functional Strength, Safety, Balance, Gait, Transfer, Bed Mobility, ROM Treatment/Plan Treatment Plan: Continue Plan of Care Treatment Plan: Bed Mobility, Education, Functional Activity Junior, Functional Strength, Group Therapy, Gait, Safety, Therapeutic Exercise, Transfers Treatment Duration: Sep 11, 2022 Frequency: At least 5 of 7 days/Wk (IRF) Estimated Hrs Per Day: 1.5 hours per day Patient and/or Family Agrees t: Yes Safety Risks/Education Patient Education: Gait Training, Transfer Techniques, Correct Positioning, Safety Issues Teaching Recipient: Patient Teaching Methods: Demonstration, Discussion Response to Teaching: Reinforcement Needed Time Time In: 0900 Time Out: 1000 DATE: Aug 30, 2022 Total Billed Treatment Time: 60 Total Billed Treatment 1 visit EX 30' FA 30' LINDA MICHELE PT Aug 30, 2022 09:55
[2022-08-30] MEDS: polyethylene glycoL POWDER 17 GM (MIRALAX) PACK PO SCH ×2 (10:02→20:48)
[2022-08-30] MEDS: FLECAINIDE 100 MG (TAMBOCOR) TAB PO SCH ×2 (10:02→20:39)
[2022-08-30] MEDS: APIXABAN 2.5 MG (ELIQUIS) TABLET PO SCH ×2 (10:03→20:40)
[2022-08-30] MEDS: rOPINIRole 1 MG (REQUIP) TABLET PO SCH ×3 (10:03→20:40)
[2022-08-30] MEDS: DOCUSATE SODIUM 100 MG (COLACE) CAP PO SCH ×2 (10:03→20:39)
[2022-08-30] MEDS: SENNA W/DOCUSATE (SENOKOT S) TABLET PO SCH ×2 (10:03→20:48)
[2022-08-30] MEDS: CEFDINIR 300 MG (OMNICEF) CAP PO SCH ×2 (10:03→20:39)
[2022-08-30] MEDS: amLODIPine 5 MG (NORVASC) TAB PO SCH (10:04)
[2022-08-30] MEDS: SERTRALINE 50 MG (ZOLOFT) TABLET PO SCH (10:10)
--- NOTE | 2022-08-30 13:33 | Physical Therapy Daily Note ---
PT Daily Note-Current Subjective Patient in restroom pre tx, agrees to PT when done, has 7/10 pain in right hip. Pain Section J - Health Conditions 1. Rarely or not at all 2. Occasionally 3. Frequently 4. Almost constantly 8. Unable to answer Pain Effect on Sleep: 2 Pain Interference with Therapy: 2 Pain Interference w/Day-to-Day: 2 Appearance Patient in recliner post tx with nurse call, phone, tray, all needs met. Mental Status Patient Orientation: Person, Place, Situation Attachments: Oxygen Transfers SCALE: Activities may be completed with or without assistive devices. 7-Rrspkjxcrl-plggosw completes the activity by him/herself with no assistance from a helper. 5-Set-up or Clean-up Assistance-helper sets up or cleans up; patient completes activity. [place] assists only prior to or following the activity. 4-Supervision or Touching Assistance-helper provides verbal cues and/or touching/steadying and/or contact guard assistance as patient completes activity. Assistance may be provided throughout the activity or intermittently. 3-Partial/Moderate Assistance-helper does LESS THAN HALF the effort. [place] lifts, holds or supports trunk or limbs, but provides less than half the effort. 2-Substantial/Maximal Assistance-helper does MORE THAN HALF the effort. [place] lifts or holds trunk or limbs and provides more than half the effort. 2-Wteyjexbq-turooq does ALL the effort. Patient does none of the effort to complete the activity. Or, the assistance of 2 or more helpers is required for the patient to complete the activity. If activity was not attempted, code reason: 7-Patient Refused. 9-Not Applicable-not attempted and the patient did not perform the activity before the current illness, exacerbation or injury. 10-Not Attempted due to Environmental Limitations-(lack of equipment, weather restraints, etc.). 88-Not Attempted due to Medical Conditions or Safety Concerns. Sit to Stand (QC): 4 Chair/Pvf-oj-Mgiou Xfer(QC): 4 Weight Bearing Right Lower Extremity: Right Weight Bearing/Tolerated Gait Training Distance: 120'x2 Walk 10 feet (QC): 4 Walk 50 ft with 2 Turns(QC): 4 Gait Persons Needed: 1 Gait Assistive Device: FWW very slow, antalgic ambulation, poor foot clearance on the right side but can step-through Exercises Standing: Heel/toe raises, Marching, Mini squats Standing Reps: 15 Treatments transfers, ambulation, strengthening Assessment Current Status: Fair Progress slowly improving general mobility PT Jail Goals Forensic Sergeant Goals PT Jail Goals Time Frame: Sep 11, 2022 Roll Left & Right (QC): 6 Sit to Lying (QC): 6 Lying-Sitting on Side/Bed(QC): 6 Sit to Stand (QC): 6 Chair/Hth-or-Uuvrd Xfer(QC): 4 (SBA) Toilet Transfer (QC): 4 (SBA) Car Transfer (QC): 4 (SBA) Does the Patient Walk: Yes Walk 10 feet (QC): 4 (SBA) Walk 50ft with 2 Turns (QC): 4 (SBA) Walk 150 ft (QC): 4 (SBA) Walking 10ft on Uneven Surface: 4 (SBA) 1 Step (curb) (QC): 4 (CGA) 4 Steps (QC): 4 (CGA) 12 Steps (QC): 88 Picking up an Object (QC): 6 Wheel 50 feet with 2 turns (QC: 9 Wheel 150 feet: 9 PT Plan Problem List Problem List: Activity Tolerance, Functional Strength, Safety, Balance, Gait, Transfer, Bed Mobility, ROM Treatment/Plan Treatment Plan: Continue Plan of Care Treatment Plan: Bed Mobility, Education, Functional Activity Junior, Functional Strength, Group Therapy, Gait, Safety, Therapeutic Exercise, Transfers Treatment Duration: Sep 11, 2022 Frequency: At least 5 of 7 days/Wk (IRF) Estimated Hrs Per Day: 1.5 hours per day Patient and/or Family Agrees t: Yes Safety Risks/Education Patient Education: Gait Training, Transfer Techniques, Correct Positioning, Safety Issues Teaching Recipient: Patient Teaching Methods: Demonstration, Discussion Response to Teaching: Reinforcement Needed Time Time In: 1300 Time Out: 1330 DATE: Aug 30, 2022 Total Billed Treatment Time: 30 Total Billed Treatment 1 visit EX 10' FA 20' LINDA MICHELE PT Aug 30, 2022 13:33
[2022-08-30 19:57] VITALS: BP 133/78
[2022-08-30] MEDS: AtorvaSTATin TABLET 10 MG TABLET PO SCH (20:40)
--- NOTE | 2022-08-31 05:42 | PM&R Progress Note ---
Subjective HPI/CC On Admission Date Seen by Provider: Aug 31, 2022 Time Seen by Provider: 11:00 Subjective/Events-last exam 08/31/2022: Doing exceptionally well Pain controlled No falls No confusion 08/30/2022: Patient having a good day Family at bedside Pain controlled Wants to DC soon 08/29/2022: Much improved status Pain controlled Completing PO abx now O2 maintained No falls BM+ Review of Systems General: Fatigue, Malaise Objective Exam Vital Signs Vital Signs Date Time Temp Pulse Resp B/P (MAP) Pulse Ox O2 Delivery O2 Flow Rate FiO2 08/31/22 19:50 36.8 67 16 130/79 (96) 93 08/31/22 09:00 Nasal Cannula 4.00 Capillary Refill : General Appearance: No Apparent Distress, WD/WN, Chronically ill, Thin HEENT: PERRL/EOMI, Normal ENT Inspection, Pharynx Normal Neck: Full Range of Motion, Normal Inspection, Non Tender, Supple, Carotid Bruit Respiratory: Chest Non Tender, Lungs Clear, No Accessory Muscle Use, No Respiratory Distress, Decreased Breath Sounds Cardiovascular: No Edema, No Gallop, No JVD, No Murmur, Normal Peripheral Pulses, Irregularly Irregular Gastrointestinal: Normal Bowel Sounds, No Organomegaly, No Pulsatile Mass, Non Tender, Soft Back: Normal Inspection, No CVA Tenderness, No Vertebral Tenderness Extremity: Normal Capillary Refill, Normal Inspection, Normal Range of Motion, Non Tender, No Calf Tenderness, No Pedal Edema Neurologic/Psychiatric: Alert, Oriented x3, Normal Mood/Affect, machine wood sander II-XII Norm as Tested, Abnormal Gait, Depressed Affect, Motor Weakness (right leg) Skin: Normal Color, Warm/Dry Lymphatic: No Adenopathy Results/Procedures Lab Patient resulted labs reviewed. FIM Transfers Therapy Code Descriptions/Definitions Functional [place] Measure: 0=Not Assessed/NA 4=Minimal Assistance 1=Total Assistance 5=Supervision or Setup 2=Maximal Assistance 6=Modified [place] 3=Moderate Assistance 7=Complete IndependenceSCALE: Activities may be completed with or without assistive devices. 9-Qauvvbmdgx-bwoeusy completes the activity by him/herself with no assistance from a helper. 5-Set-up or Clean-up Assistance-helper sets up or cleans up; patient completes activity. [place] assists only prior to or following the activity. 4-Supervision or Touching Assistance-helper provides verbal cues and/or touching/steadying and/or contact guard assistance as patient completes activity. Assistance may be provided throughout the activity or intermittently. 3-Partial/Moderate Assistance-helper does LESS THAN HALF the effort. [place] lifts, holds or supports trunk or limbs, but provides less than half the effort. 2-Substantial/Maximal Assistance-helper does MORE THAN HALF the effort. [place] lifts or holds trunk or limbs and provides more than half the effort. 2-Xaaiqisec-uikcht does ALL the effort. Patient does none of the effort to complete the activity. Or, the assistance of 2 or more helpers is required for the patient to complete the activity. If activity was not attempted, code reason: 7-Patient Refused. 9-Not Applicable-not attempted and the patient did not perform the activity before the current illness, exacerbation or injury. 10-Not Attempted due to Environmental Limitations-(lack of equipment, weather restraints, etc.). 88-Not Attempted due to Medical Conditions or Safety Concerns. Roll Left to Right (QC): 3 Sit to Lying (QC): 3 Sit to Stand (QC): 4 Chair/Cua-vi-Hshxq Xfer(QC): 4 Car Transfer (QC): 3 Gait Training Does the Patient Walk?: Yes Distance: 120'x2 Walk 10 feet (QC): 4 Walk 50 ft with 2 Turns(QC): 4 Walk 150 ft (QC): 88 Walking 10ft/uneven surface-QC: 88 Gait Persons Needed: 1 Gait Assistive Device: FWW Wheelchair Training Does the Pt Use a Wheelchair?: Yes Distance: 120'x2 Wheel 50 ft with 2 turns (QC): 2 Wheel 150 ft (QC): 88 Type of Wheelchair: Manual Stair Training 1 Step (curb) (QC): 88 4 Steps (QC): 88 12 Steps (QC): 88 Balance Picking up an Object (QC): 4 (CGA using a coal feeder operator) ADL-Treatment Eating (QC): 6 Oral Hygiene (QC): 4 (Supervision) Shower/Bathe Self (QC): 4 (CGA in stand) Upper Body Dressing (QC): 4 (CGA, pt attempted to don in standing requiring steadying assistance.) Lower Body Dressing (QC): 3 (Min A with threading LEs.) On/Off Footwear (QC): 3 (Min A donning socks using sock aide. Pt able to doff without AE. Pt able to don/doff slip on shoes without AE) Toileting Hygiene (QC): 4 Toilet Transfer (QC): 4 Assessment/Plan Assessment and Plan Assess & Plan/Chief Complaint Assessment: Right hip fracture s/p repair s/p HAP with hypoxic and hypercapneic respiratory failure requiring transfer to ICU from ARU now back to ARU again Chronic AF OAC maintained HTN HLP Parkinson's COPD Post op anemia acute blood loss requiring IV iron infusions Iron deficiency B12 def Osteoporosis Plan: Cefdinir to complete PNA treatment Pain control Monitor labs PT OT protocol 08/29/2022: Pain control Monitor BP 08/30/2022: Monitor pain Monitor labs 08/31/2022: Monitor closely Pain controlled (1) Closed right hip fracture Status: Acute (2) Paroxysmal atrial fibrillation (3) HLD (hyperlipidemia) (4) Parkinson's disease (5) Hypertension (6) Acute on chronic respiratory failure with hypoxia and hypercapnia FLORENCIA TAPIA DO Aug 31, 2022 05:42
[2022-08-31] MEDS: MULTIVIT W/MINERALS TAB (THERAGRAN M) PO SCH (06:46)
[2022-08-31] MEDS: SINEMET 25/100 (CARBIDOPA/LEVODOPA) TAB PO SCH ×5 (06:46→19:02)
[2022-08-31] MEDS: CYANOCOBALAMIN 1,000 MCG (VITAMIN B-12) TABLET PO SCH (06:46)
[2022-08-31 07:44] VITALS: BP 161/88
--- NOTE | 2022-08-31 07:56 | Occupational Ther Daily Note ---
OT Current Status-Daily Note Subjective Pt in bed, agreeable to OT Tx. Mental Status/Objective Patient Orientation: Normal For Age ADL-Treatment Therapy Code Descriptions/Definitions Functional [place] Measure: 0=Not Assessed/NA 4=Minimal Assistance 1=Total Assistance 5=Supervision or Setup 2=Maximal Assistance 6=Modified [place] 3=Moderate Assistance 7=Complete IndependenceSCALE: Activities may be completed with or without assistive devices. 3-Otooffxmcq-jxavkaj completes the activity by him/herself with no assistance from a helper. 5-Set-up or Clean-up Assistance-helper sets up or cleans up; patient completes activity. [place] assists only prior to or following the activity. 4-Supervision or Touching Assistance-helper provides verbal cues and/or touching/steadying and/or contact guard assistance as patient completes activity. Assistance may be provided throughout the activity or intermittently. 3-Partial/Moderate Assistance-helper does LESS THAN HALF the effort. [place] lifts, holds or supports trunk or limbs, but provides less than half the effort. 2-Substantial/Maximal Assistance-helper does MORE THAN HALF the effort. [place] lifts or holds trunk or limbs and provides more than half the effort. 7-Tfszetdjh-onohrs does ALL the effort. Patient does none of the effort to complete the activity. Or, the assistance of 2 or more helpers is required for the patient to complete the activity. If activity was not attempted, code reason: 7-Patient Refused. 9-Not Applicable-not attempted and the patient did not perform the activity before the current illness, exacerbation or injury. 10-Not Attempted due to Environmental Limitations-(lack of equipment, weather restraints, etc.). 88-Not Attempted due to Medical Conditions or Safety Concerns. Eating (QC): 6 Upper Body Dressing (QC): 4 (SBA, pt donned overhead shirt in stand.) Lower Body Dressing (QC): 4 (CGA, 1 LOB balance backwards during pant hike requiring steadying assist) On/Off Footwear: 4 (SBA, pt required min VCs with sock aide. Pt able to doff/don gripper socks.) Toileting Hygiene (QC): 4 (SBA-CGA) Toilet Transfer (QC): 4 (CGA) Other Treatment Pt in bed, transferred supine to sit EOB, min A with RLE. Pt used FWW to transfer into bathroom, completing toileting. Pt required SBA-CGA with transfer on/off BSC over toilet, and SBA-CGA in stand during clothing management. Pt used FWW to transfer to recliner. Pt's breakfast tray present, pt able to open containers, manipulate utensils and eat without assistance. Pt changed clothes as outlined above, rest breaks as needed. In order to increase BUE strength and activity tolerance, pt completed UE reaching task, placing 1" pegs into foam pegboard. Pt able to complete x70 pegs. Post tx, pt seated in recliner, call light in reach and all needs met. chair alarm activated. Education OT Patient Education: Correct positioning, Energy conservation, Modified ADL techniques, Progress toward Goal/Update tx plan, Purpose of tx/functional activities, Rehab process Teaching Recipient: Patient Teaching Methods: Discussion Response to Teaching: Verbalize Understanding OT Short Term Goals Short Term Goals Time Frame: Sep 07, 2022 Upper body dressin Lower body dressin Putting on/taking off footwear: 5 OT Half-Way Goals Half-Way Goals Time Frame: Sep 21, 2022 Acute change in mental status: 0 Inattention: 0 Disorganized thinkin Altered level of consciousness: 0 Eating (QC): 6 Oral Hygiene (QC): 6 Toileting Hygiene (QC): 6 Shower/Bathe Self (QC): 5 Upper Body Dressing (QC): 6 Lower Body Dressing (QC): 6 On/Off Footwear (QC): 6 Additional Goals: 1-Demonstrate ADL Tasks, 2-Verbalize Understanding, 3- ImproveStrength/Junior 1=Demonstrate adherence to instructed precautions during ADL tasks. 2=Patient will verbalize/demonstrate understanding of assistive devices/modifications for ADL. 3=Patient will improve strength/tolerance for activity to enable patient to perform ADL's. OT Education/Plan Problem List/Assessment Assessment: Decreased Activ Tolerance, Decreased UE Strength, Impaired Funct Balance, Impaired I ADL's Discharge Recommendations Plan/Recommendations: Continue POC Treatment Plan/Plan of Care Patient would benefit from OT for education, treatment and training to promote independence in ADL's, mobility, safety and/or upper extremity function for ADL's. Plan of Care: ADL Retraining, Functional Mobility, Group Exercise/Act as Ind, UE Funct Exercise/Act Treatment Duration: Sep 21, 2022 Frequency: At least 5 of 7 days/Wk (IRF) Estimated Hrs Per Day: 1.5 hours per day Agreement: Yes Rehab Potential: Fair Time Start Time: 07:30 Stop Time: 09:00 DATE: Aug 31, 2022 Total Time Billed (hr/min): 90 Billed Treatment Time 1, ADL 5 (75'), FA (15') VASHTI DUARTE OT Aug 31, 2022 07:56
[2022-08-31] MEDS: FLECAINIDE 100 MG (TAMBOCOR) TAB PO SCH ×2 (08:32→21:38)
[2022-08-31] MEDS: IRON SUCROSE 200 MG/10 ML (VENOFER) VIAL IV SCH (08:32)
[2022-08-31] MEDS: DOCUSATE SODIUM 100 MG (COLACE) CAP PO SCH ×2 (08:33→21:38)
[2022-08-31] MEDS: rOPINIRole 1 MG (REQUIP) TABLET PO SCH ×3 (08:33→21:37)
[2022-08-31] MEDS: HYDROcodone/APAP 5 MG/325 MG (LORTAB) TAB PO PRN ×2 (08:34→14:33)
[2022-08-31] MEDS: CEFDINIR 300 MG (OMNICEF) CAP PO SCH ×2 (08:34→21:38)
[2022-08-31] MEDS: amLODIPine 5 MG (NORVASC) TAB PO SCH (08:34)
[2022-08-31] MEDS: APIXABAN 2.5 MG (ELIQUIS) TABLET PO SCH ×2 (08:35→21:38)
[2022-08-31] MEDS: polyethylene glycoL POWDER 17 GM (MIRALAX) PACK PO SCH ×2 (08:36→21:39)
[2022-08-31] MEDS: SENNA W/DOCUSATE (SENOKOT S) TABLET PO SCH ×2 (08:37→21:37)
[2022-08-31] MEDS: SERTRALINE 50 MG (ZOLOFT) TABLET PO SCH (09:01)
--- NOTE | 2022-08-31 10:00 | Physical Therapy Daily Note ---
PT Daily Note-Current Subjective Patient in recliner pre tx, agrees to PT, has 6/10 pain in right leg. Pain Section J - Health Conditions 1. Rarely or not at all 2. Occasionally 3. Frequently 4. Almost constantly 8. Unable to answer Pain Effect on Sleep: 2 Pain Interference with Therapy: 2 Pain Interference w/Day-to-Day: 2 Appearance Patient in bed post tx with nurse call, phone, tray, all needs met, bed alarm on. Mental Status Patient Orientation: Normal For Age Attachments: Oxygen Transfers SCALE: Activities may be completed with or without assistive devices. 2-Wlfkiuqmfs-kjipzma completes the activity by him/herself with no assistance from a helper. 5-Set-up or Clean-up Assistance-helper sets up or cleans up; patient completes activity. [place] assists only prior to or following the activity. 4-Supervision or Touching Assistance-helper provides verbal cues and/or touching/steadying and/or contact guard assistance as patient completes activity. Assistance may be provided throughout the activity or intermittently. 3-Partial/Moderate Assistance-helper does LESS THAN HALF the effort. [place] lifts, holds or supports trunk or limbs, but provides less than half the effort. 2-Substantial/Maximal Assistance-helper does MORE THAN HALF the effort. [place] lifts or holds trunk or limbs and provides more than half the effort. 2-Hcgzkgjei-gxfsjn does ALL the effort. Patient does none of the effort to complete the activity. Or, the assistance of 2 or more helpers is required for the patient to complete the activity. If activity was not attempted, code reason: 7-Patient Refused. 9-Not Applicable-not attempted and the patient did not perform the activity b efore the current illness, exacerbation or injury. 10-Not Attempted due to Environmental Limitations-(lack of equipment, weather restraints, etc.). 88-Not Attempted due to Medical Conditions or Safety Concerns. Roll Left & Right (QC): 3 Sit to Lying (QC): 3 Sit to Stand (QC): 4 Chair/Heq-sg-Nwvlf Xfer(QC): 4 Toilet Transfer (QC): 4 Patient ambulates to the restroom to have a BM, patient is able to wipe and manage her pants and underwear on her own. Weight Bearing Right Lower Extremity: Right Weight Bearing/Tolerated Gait Training Distance: 120'x2 Walk 10 feet (QC): 4 Walk 50 ft with 2 Turns(QC): 4 Gait Persons Needed: 1 Gait Assistive Device: FWW CGA, very slow ambulation, slightly better step through and foot clearance on the right side, antalgic Exercises sit to stand 3 sets of 5 NuStep Minutes: 15 NuStep Workload: 4 Treatments bed mobility and transfers, ambulation, strengthening, toileting. Assessment Current Status: Fair Progress slow improvement in general mobility PT Stores [employer] Goals [facility] Goals PT Stores [employer] Goals Time Frame: Sep 11, 2022 Roll Left & Right (QC): 6 Sit to Lying (QC): 6 Lying-Sitting on Side/Bed(QC): 6 Sit to Stand (QC): 6 Chair/Olz-by-Havtf Xfer(QC): 4 (SBA) Toilet Transfer (QC): 4 (SBA) Car Transfer (QC): 4 (SBA) Does the Patient Walk: Yes Walk 10 feet (QC): 4 (SBA) Walk 50ft with 2 Turns (QC): 4 (SBA) Walk 150 ft (QC): 4 (SBA) Walking 10ft on Uneven Surface: 4 (SBA) 1 Step (curb) (QC): 4 (CGA) 4 Steps (QC): 4 (CGA) 12 Steps (QC): 88 Picking up an Object (QC): 6 Wheel 50 feet with 2 turns (QC: 9 Wheel 150 feet: 9 PT Plan Problem List Problem List: Activity Tolerance, Functional Strength, Safety, Balance, Gait, Transfer, Bed Mobility, ROM Treatment/Plan Treatment Plan: Continue Plan of Care Treatment Plan: Bed Mobility, Education, Functional Activity Junior, Functional Strength, Group Therapy, Gait, Safety, Therapeutic Exercise, Transfers Treatment Duration: Sep 11, 2022 Frequency: At least 5 of 7 days/Wk (IRF) Estimated Hrs Per Day: 1.5 hours per day Patient and/or Family Agrees t: Yes Safety Risks/Education Patient Education: Gait Training, Transfer Techniques, Correct Positioning, Safety Issues Teaching Recipient: Patient Teaching Methods: Demonstration, Discussion Response to Teaching: Reinforcement Needed Time Time In: 0900 Time Out: 1000 DATE: Aug 31, 2022 Total Billed Treatment Time: 60 Total Billed Treatment 1 visit EX 20' FA 40' LINDA MICHELE PT Aug 31, 2022 10:00
--- NOTE | 2022-08-31 12:51 | Physical Therapy Daily Note ---
PT Daily Note-Current Subjective Patient in bed pre tx, agrees to PT, has no complaints of pain at rest. Pain Section J - Health Conditions 1. Rarely or not at all 2. Occasionally 3. Frequently 4. Almost constantly 8. Unable to answer Pain Effect on Sleep: 2 Pain Interference with Therapy: 2 Pain Interference w/Day-to-Day: 2 Appearance Patient in bed post tx with nurse call, phone, tray, all needs met. Mental Status Patient Orientation: Person, Place, Situation Attachments: Oxygen Transfers SCALE: Activities may be completed with or without assistive devices. 2-Dkqzzjxmfj-pwsmuen completes the activity by him/herself with no assistance from a helper. 5-Set-up or Clean-up Assistance-helper sets up or cleans up; patient completes activity. [place] assists only prior to or following the activity. 4-Supervision or Touching Assistance-helper provides verbal cues and/or touching/steadying and/or contact guard assistance as patient completes activity. Assistance may be provided throughout the activity or intermittently. 3-Partial/Moderate Assistance-helper does LESS THAN HALF the effort. [place] lifts, holds or supports trunk or limbs, but provides less than half the effort. 2-Substantial/Maximal Assistance-helper does MORE THAN HALF the effort. [place] lifts or holds trunk or limbs and provides more than half the effort. 4-Dctnaogie-qdzpqo does ALL the effort. Patient does none of the effort to complete the activity. Or, the assistance of 2 or more helpers is required for the patient to complete the activity. If activity was not attempted, code reason: 7-Patient Refused. 9-Not Applicable-not attempted and the patient did not perform the activity bef ore the current illness, exacerbation or injury. 10-Not Attempted due to Environmental Limitations-(lack of equipment, weather r estraints, etc.). 88-Not Attempted due to Medical Conditions or Safety Concerns. Weight Bearing Right Lower Extremity: Right Weight Bearing/Tolerated Exercises Supine Ex: Ankle pumps (2 sets), Quad Set (2 sets), Glut sets (2 sets), Heel Slides (RLE AAROM), Short Arc Quads, Straight leg raise (RLE AAROM), Hip abd/add (RLE AAROM) Supine Reps: 20 (BLE) Treatments BLE strengthening/ROM Assessment Current Status: Fair Progress improving strength in RLE PT Residential Goals Car Deliverer Goals PT Car Deliverer Goals Time Frame: Sep 11, 2022 Roll Left & Right (QC): 6 Sit to Lying (QC): 6 Lying-Sitting on Side/Bed(QC): 6 Sit to Stand (QC): 6 Chair/Jqd-wr-Udijm Xfer(QC): 4 (SBA) Toilet Transfer (QC): 4 (SBA) Car Transfer (QC): 4 (SBA) Does the Patient Walk: Yes Walk 10 feet (QC): 4 (SBA) Walk 50ft with 2 Turns (QC): 4 (SBA) Walk 150 ft (QC): 4 (SBA) Walking 10ft on Uneven Surface: 4 (SBA) 1 Step (curb) (QC): 4 (CGA) 4 Steps (QC): 4 (CGA) 12 Steps (QC): 88 Picking up an Object (QC): 6 Wheel 50 feet with 2 turns (QC: 9 Wheel 150 feet: 9 PT Plan Problem List Problem List: Activity Tolerance, Functional Strength, Safety, Balance, Gait, Transfer, Bed Mobility, ROM Treatment/Plan Treatment Plan: Continue Plan of Care Treatment Plan: Bed Mobility, Education, Functional Activity Junior, Functional Strength, Group Therapy, Gait, Safety, Therapeutic Exercise, Transfers Treatment Duration: Sep 11, 2022 Frequency: At least 5 of 7 days/Wk (IRF) Estimated Hrs Per Day: 1.5 hours per day Patient and/or Family Agrees t: Yes Safety Risks/Education Patient Education: Correct Positioning, Safety Issues Teaching Recipient: Patient Teaching Methods: Demonstration, Discussion Response to Teaching: Reinforcement Needed Time Time In: 1130 Time Out: 1200 DATE: Aug 31, 2022 Total Billed Treatment Time: 30 Total Billed Treatment 1 visit EX 30' LINDA MICHELE PT Aug 31, 2022 12:51
[2022-08-31 19:50] VITALS: BP 130/79
[2022-08-31] MEDS: MELATONIN 3 MG TABLET PO PRN (21:38)
[2022-08-31] MEDS: AtorvaSTATin TABLET 10 MG TABLET PO SCH (21:38)
[2022-09-01] MEDS: HYDROcodone/APAP 5 MG/325 MG (LORTAB) TAB PO PRN ×3 (03:45→21:24)
--- NOTE | 2022-09-01 06:52 | PM&R Progress Note ---
Subjective HPI/CC On Admission Date Seen by Provider: Sep 01, 2022 Time Seen by Provider: 11:00 Subjective/Events-last exam 09/01/2022: No major issues Daughter at bedside No pain reported until last night due to no pain pill for 14 hours 08/31/2022: Doing exceptionally well Pain controlled No falls No confusion 08/30/2022: Patient having a good day Family at bedside Pain controlled Wants to DC soon 08/29/2022: Much improved status Pain controlled Completing PO abx now O2 maintained No falls BM+ Review of Systems General: Fatigue, Malaise Objective Exam Vital Signs Vital Signs Date Time Temp Pulse Resp B/P (MAP) Pulse Ox O2 Delivery O2 Flow Rate FiO2 09/01/22 09:00 Nasal Cannula 3.00 09/01/22 07:30 36.5 76 18 114/69 (84) 97 Capillary Refill : General Appearance: No Apparent Distress, WD/WN, Chronically ill, Thin HEENT: PERRL/EOMI, Normal ENT Inspection, Pharynx Normal Neck: Full Range of Motion, Normal Inspection, Non Tender, Supple, Carotid Bruit Respiratory: Chest Non Tender, Lungs Clear, No Accessory Muscle Use, No Respiratory Distress, Decreased Breath Sounds Cardiovascular: No Edema, No Gallop, No JVD, No Murmur, Normal Peripheral Pulses, Irregularly Irregular Gastrointestinal: Normal Bowel Sounds, No Organomegaly, No Pulsatile Mass, Non Tender, Soft Back: Normal Inspection, No CVA Tenderness, No Vertebral Tenderness Extremity: Normal Capillary Refill, Normal Inspection, Normal Range of Motion, Non Tender, No Calf Tenderness, No Pedal Edema Neurologic/Psychiatric: Alert, Oriented x3, Normal Mood/Affect, billing assistant II-XII Norm as Tested, Abnormal Gait, Depressed Affect, Motor Weakness (right leg) Skin: Normal Color, Warm/Dry Lymphatic: No Adenopathy Results/Procedures Lab Patient resulted labs reviewed. FIM Transfers Therapy Code Descriptions/Definitions Functional [place] Measure: 0=Not Assessed/NA 4=Minimal Assistance 1=Total Assistance 5=Supervision or Setup 2=Maximal Assistance 6=Modified [place] 3=Moderate Assistance 7=Complete IndependenceSCALE: Activities may be completed with or without assistive devices. 3-Ppteoacgei-bcdtrpy completes the activity by him/herself with no assistance from a helper. 5-Set-up or Clean-up Assistance-helper sets up or cleans up; patient completes activity. [place] assists only prior to or following the activity. 4-Supervision or Touching Assistance-helper provides verbal cues and/or touching/steadying and/or contact guard assistance as patient completes activity. Assistance may be provided throughout the activity or intermittently. 3-Partial/Moderate Assistance-helper does LESS THAN HALF the effort. [place] lifts, holds or supports trunk or limbs, but provides less than half the effort. 2-Substantial/Maximal Assistance-helper does MORE THAN HALF the effort. [place] lifts or holds trunk or limbs and provides more than half the effort. 2-Unbtpeitz-egilbg does ALL the effort. Patient does none of the effort to complete the activity. Or, the assistance of 2 or more helpers is required for the patient to complete the activity. If activity was not attempted, code reason: 7-Patient Refused. 9-Not Applicable-not attempted and the patient did not perform the activity before the current illness, exacerbation or injury. 10-Not Attempted due to Environmental Limitations-(lack of equipment, weather restraints, etc.). 88-Not Attempted due to Medical Conditions or Safety Concerns. Roll Left to Right (QC): 3 Sit to Lying (QC): 3 Sit to Stand (QC): 4 Chair/Zyb-gg-Modku Xfer(QC): 4 Car Transfer (QC): 3 Gait Training Does the Patient Walk?: Yes Distance: 120'x2 Walk 10 feet (QC): 4 Walk 50 ft with 2 Turns(QC): 4 Walk 150 ft (QC): 88 Walking 10ft/uneven surface-QC: 88 Gait Persons Needed: 1 Gait Assistive Device: FWW Wheelchair Training Does the Pt Use a Wheelchair?: Yes Distance: 120'x2 Wheel 50 ft with 2 turns (QC): 2 Wheel 150 ft (QC): 88 Type of Wheelchair: Manual Stair Training 1 Step (curb) (QC): 88 4 Steps (QC): 88 12 Steps (QC): 88 Balance Picking up an Object (QC): 4 (CGA using a rider ticket worker) ADL-Treatment Eating (QC): 6 Oral Hygiene (QC): 4 (Supervision) Shower/Bathe Self (QC): 4 (CGA in stand) Upper Body Dressing (QC): 4 (SBA, pt donned overhead shirt in stand.) Lower Body Dressing (QC): 4 (CGA, 1 LOB balance backwards during pant hike requiring steadying assist) On/Off Footwear (QC): 4 (SBA, pt required min VCs with sock aide. Pt able to doff/don gripper socks.) Toileting Hygiene (QC): 4 (SBA-CGA) Toilet Transfer (QC): 4 (CGA) Assessment/Plan Assessment and Plan Assess & Plan/Chief Complaint Assessment: Right hip fracture s/p repair s/p HAP with hypoxic and hypercapneic respiratory failure requiring transfer to ICU from ARU now back to ARU again Chronic AF OAC maintained HTN HLP Parkinson's COPD Post op anemia acute blood loss requiring IV iron infusions Iron deficiency B12 def Osteoporosis Plan: Cefdinir to complete PNA treatment Pain control Monitor labs PT OT protocol 08/29/2022: Pain control Monitor BP 08/30/2022: Monitor pain Monitor labs 08/31/2022: Monitor closely Pain controlled 09/01/2022: Monitor closely (1) Closed right hip fracture Status: Acute (2) Paroxysmal atrial fibrillation (3) HLD (hyperlipidemia) (4) Parkinson's disease (5) Hypertension (6) Acute on chronic respiratory failure with hypoxia and hypercapnia FLORENCIA TAPIA DO Sep 01, 2022 06:52
[2022-09-01] MEDS: SINEMET 25/100 (CARBIDOPA/LEVODOPA) TAB PO SCH ×5 (06:56→19:33)
[2022-09-01] MEDS: MULTIVIT W/MINERALS TAB (THERAGRAN M) PO SCH (06:56)
[2022-09-01] MEDS: CYANOCOBALAMIN 1,000 MCG (VITAMIN B-12) TABLET PO SCH (06:57)
[2022-09-01 07:30] VITALS: BP 114/69
[2022-09-01] MEDS: rOPINIRole 1 MG (REQUIP) TABLET PO SCH ×3 (10:16→21:25)
[2022-09-01] MEDS: SERTRALINE 50 MG (ZOLOFT) TABLET PO SCH (10:16)
[2022-09-01] MEDS: polyethylene glycoL POWDER 17 GM (MIRALAX) PACK PO SCH ×2 (10:17→21:29)
[2022-09-01] MEDS: DOCUSATE SODIUM 100 MG (COLACE) CAP PO SCH ×2 (10:17→21:26)
[2022-09-01] MEDS: CEFDINIR 300 MG (OMNICEF) CAP PO SCH ×2 (10:17→21:24)
[2022-09-01] MEDS: amLODIPine 5 MG (NORVASC) TAB PO SCH (10:17)
[2022-09-01] MEDS: APIXABAN 2.5 MG (ELIQUIS) TABLET PO SCH ×2 (10:17→21:24)
[2022-09-01] MEDS: SENNA W/DOCUSATE (SENOKOT S) TABLET PO SCH ×2 (10:17→21:25)
[2022-09-01] MEDS: FLECAINIDE 100 MG (TAMBOCOR) TAB PO SCH ×2 (10:17→21:25)
--- NOTE | 2022-09-01 11:18 | Physical Therapy Daily Note ---
PT Daily Note-Current Subjective Pt. agrees to Rx, " I wish I could really walk" Pt. was encouraged that she "Is really walking" no c/o pain. Pain Location: No Pain Reported Section J - Health Conditions 1. Rarely or not at all 2. Occasionally 3. Frequently 4. Almost constantly 8. Unable to answer Pain Effect on Sleep: 2 Pain Interference with Therapy: 2 Pain Interference w/Day-to-Day: 2 Mental Status Patient Orientation: Normal For Age Attachments: Oxygen (3L) Transfers SCALE: Activities may be completed with or without assistive devices. 3-Fawanojmkz-eyfnkqt completes the activity by him/herself with no assistance from a helper. 5-Set-up or Clean-up Assistance-helper sets up or cleans up; patient completes activity. [place] assists only prior to or following the activity. 4-Supervision or Touching Assistance-helper provides verbal cues and/or touching/steadying and/or contact guard assistance as patient completes activity. Assistance may be provided throughout the activity or intermittently. 3-Partial/Moderate Assistance-helper does LESS THAN HALF the effort. [place] lifts, holds or supports trunk or limbs, but provides less than half the effort. 2-Substantial/Maximal Assistance-helper does MORE THAN HALF the effort. [place] lifts or holds trunk or limbs and provides more than half the effort. 7-Fjhtzhxqb-cwlppe does ALL the effort. Patient does none of the effort to complete the activity. Or, the assistance of 2 or more helpers is required for the patient to complete the activity. If activity was not attempted, code reason: 7-Patient Refused. 9-Not Applicable-not attempted and the patient did not perform the activity before the current illness, exacerbation or injury. 10-Not Attempted due to Environmental Limitations-(lack of equipment, weather restraints, etc.). 88-Not Attempted due to Medical Conditions or Safety Concerns. in out bed min asst affected limb, sit to stands, CGA Weight Bearing Right Lower Extremity: Right Weight Bearing/Tolerated Gait Training Does the Patient Walk?: Yes Walk 150 ft (QC): 4 (x3) Gait Persons Needed: 1 Gait Assistive Device: FWW slow but no LOB, head down posture, cued for alignment, decreased step length R Exercises Seated Therapy Exercises: Ankle pumps, Sit to stand, Long arc quads, Hip abd/add Seated Reps: 15 Treatments TRFs, seated Ex, gait Assessment Current Status: Good Progress PT Shelter Goals Shelter Goals PT Fence Installer Helper Goals Time Frame: Sep 11, 2022 Roll Left & Right (QC): 6 Sit to Lying (QC): 6 Lying-Sitting on Side/Bed(QC): 6 Sit to Stand (QC): 6 Chair/Yxp-kx-Vqeew Xfer(QC): 4 (SBA) Toilet Transfer (QC): 4 (SBA) Car Transfer (QC): 4 (SBA) Does the Patient Walk: Yes Walk 10 feet (QC): 4 (SBA) Walk 50ft with 2 Turns (QC): 4 (SBA) Walk 150 ft (QC): 4 (SBA) Walking 10ft on Uneven Surface: 4 (SBA) 1 Step (curb) (QC): 4 (CGA) 4 Steps (QC): 4 (CGA) 12 Steps (QC): 88 Picking up an Object (QC): 6 Wheel 50 feet with 2 turns (QC: 9 Wheel 150 feet: 9 PT Plan Treatment/Plan Treatment Plan: Continue Plan of Care Treatment Plan: Bed Mobility, Education, Functional Activity Junior, Functional Strength, Group Therapy, Gait, Safety, Therapeutic Exercise, Transfers Treatment Duration: Sep 11, 2022 Frequency: At least 5 of 7 days/Wk (IRF) Estimated Hrs Per Day: 1.5 hours per day Patient and/or Family Agrees t: Yes Safety Risks/Education Patient Education: Gait Training, Transfer Techniques, Correct Positioning, Disease Process, Safety Issues Teaching Recipient: Patient Teaching Methods: Demonstration, Discussion Response to Teaching: Verbalize Understanding, Return Demonstration, Reinforcement Needed Time Time In: 905 Time Out: 925 DATE: Sep 01, 2022 Total Billed Treatment Time: 20 Total Billed Treatment 1,GT20m UMANG KIM CUSTOMER ACCOUNT EXECUTIVE Sep 01, 2022 11:18
[2022-09-01 19:12] VITALS: BP 114/69
[2022-09-01 20:11] VITALS: BP 128/57
[2022-09-01] MEDS: MELATONIN 3 MG TABLET PO PRN (21:24)
[2022-09-01] MEDS: AtorvaSTATin TABLET 10 MG TABLET PO SCH (21:24)
[2022-09-02] MEDS: HYDROcodone/APAP 5 MG/325 MG (LORTAB) TAB PO PRN ×2 (02:30→18:48)
[2022-09-02] MEDS: CYANOCOBALAMIN 1,000 MCG (VITAMIN B-12) TABLET PO SCH (06:46)
[2022-09-02] MEDS: SINEMET 25/100 (CARBIDOPA/LEVODOPA) TAB PO SCH ×5 (06:46→18:48)
[2022-09-02] MEDS: MULTIVIT W/MINERALS TAB (THERAGRAN M) PO SCH (06:46)
[2022-09-02 07:30] VITALS: BP 132/79
[2022-09-02] MEDS: IRON SUCROSE 200 MG/10 ML (VENOFER) VIAL IV SCH (09:19)
[2022-09-02] MEDS: FLECAINIDE 100 MG (TAMBOCOR) TAB PO SCH ×2 (09:23→21:39)
[2022-09-02] MEDS: SERTRALINE 50 MG (ZOLOFT) TABLET PO SCH (09:23)
[2022-09-02] MEDS: CEFDINIR 300 MG (OMNICEF) CAP PO SCH (09:23)
[2022-09-02] MEDS: amLODIPine 5 MG (NORVASC) TAB PO SCH (09:24)
[2022-09-02] MEDS: SENNA W/DOCUSATE (SENOKOT S) TABLET PO SCH ×2 (09:24→21:40)
[2022-09-02] MEDS: APIXABAN 2.5 MG (ELIQUIS) TABLET PO SCH ×2 (09:24→21:39)
[2022-09-02] MEDS: rOPINIRole 1 MG (REQUIP) TABLET PO SCH ×3 (09:24→21:39)
[2022-09-02] MEDS: DOCUSATE SODIUM 100 MG (COLACE) CAP PO SCH ×2 (09:24→21:40)
[2022-09-02] MEDS: polyethylene glycoL POWDER 17 GM (MIRALAX) PACK PO SCH ×2 (09:24→21:40)
--- NOTE | 2022-09-02 15:51 | PM&R Progress Note ---
Subjective HPI/CC On Admission Date Seen by Provider: Sep 02, 2022 Time Seen by Provider: 16:00 Subjective/Events-last exam 09/02/2022: No major issues Working with therapy Ambulating well No pain 09/01/2022: No major issues Daughter at bedside No pain reported until last night due to no pain pill for 14 hours 08/31/2022: Doing exceptionally well Pain controlled No falls No confusion 08/30/2022: Patient having a good day Family at bedside Pain controlled Wants to DC soon 08/29/2022: Much improved status Pain controlled Completing PO abx now O2 maintained No falls BM+ Review of Systems General: Fatigue, Malaise Objective Exam Vital Signs Vital Signs Date Time Temp Pulse Resp B/P (MAP) Pulse Ox O2 Delivery O2 Flow Rate FiO2 09/02/22 19:42 36.8 65 18 119/64 (82) 96 Nasal Cannula 3.00 Capillary Refill : General Appearance: No Apparent Distress, WD/WN, Chronically ill, Thin HEENT: PERRL/EOMI, Normal ENT Inspection, Pharynx Normal Neck: Full Range of Motion, Normal Inspection, Non Tender, Supple, Carotid Bruit Respiratory: Chest Non Tender, Lungs Clear, No Accessory Muscle Use, No Respiratory Distress, Decreased Breath Sounds Cardiovascular: No Edema, No Gallop, No JVD, No Murmur, Normal Peripheral Pulses, Irregularly Irregular Gastrointestinal: Normal Bowel Sounds, No Organomegaly, No Pulsatile Mass, Non Tender, Soft Back: Normal Inspection, No CVA Tenderness, No Vertebral Tenderness Extremity: Normal Capillary Refill, Normal Inspection, Normal Range of Motion, Non Tender, No Calf Tenderness, No Pedal Edema Neurologic/Psychiatric: Alert, Oriented x3, Normal Mood/Affect, pet care associate II-XII Norm as Tested, Abnormal Gait, Depressed Affect, Motor Weakness (right leg) Skin: Normal Color, Warm/Dry Lymphatic: No Adenopathy Results/Procedures Lab Patient resulted labs reviewed. FIM Transfers Therapy Code Descriptions/Definitions Functional [place] Measure: 0=Not Assessed/NA 4=Minimal Assistance 1=Total Assistance 5=Supervision or Setup 2=Maximal Assistance 6=Modified [place] 3=Moderate Assistance 7=Complete IndependenceSCALE: Activities may be completed with or without assistive devices. 0-Vpoqbljrvl-nthcbgc completes the activity by him/herself with no assistance from a helper. 5-Set-up or Clean-up Assistance-helper sets up or cleans up; patient completes activity. [place] assists only prior to or following the activity. 4-Supervision or Touching Assistance-helper provides verbal cues and/or touching/steadying and/or contact guard assistance as patient completes activity. Assistance may be provided throughout the activity or intermittently. 3-Partial/Moderate Assistance-helper does LESS THAN HALF the effort. [place] lifts, holds or supports trunk or limbs, but provides less than half the effort. 2-Substantial/Maximal Assistance-helper does MORE THAN HALF the effort. [place] lifts or holds trunk or limbs and provides more than half the effort. 8-Gowdtiiqw-plyatl does ALL the effort. Patient does none of the effort to complete the activity. Or, the assistance of 2 or more helpers is required for the patient to complete the activity. If activity was not attempted, code reason: 7-Patient Refused. 9-Not Applicable-not attempted and the patient did not perform the activity before the current illness, exacerbation or injury. 10-Not Attempted due to Environmental Limitations-(lack of equipment, weather restraints, etc.). 88-Not Attempted due to Medical Conditions or Safety Concerns. Roll Left to Right (QC): 3 Sit to Lying (QC): 3 Sit to Stand (QC): 4 Chair/Ele-xn-Lgeqw Xfer(QC): 4 Car Transfer (QC): 3 Gait Training Does the Patient Walk?: Yes Distance: 120'x2 Walk 10 feet (QC): 4 Walk 50 ft with 2 Turns(QC): 4 Walk 150 ft (QC): 4 (x3) Walking 10ft/uneven surface-QC: 88 Gait Persons Needed: 1 Gait Assistive Device: FWW Wheelchair Training Does the Pt Use a Wheelchair?: Yes Distance: 120'x2 Wheel 50 ft with 2 turns (QC): 2 Wheel 150 ft (QC): 88 Type of Wheelchair: Manual Stair Training 1 Step (curb) (QC): 88 4 Steps (QC): 88 12 Steps (QC): 88 Balance Picking up an Object (QC): 4 (CGA using a delivery stock clerk) ADL-Treatment Eating (QC): 6 Oral Hygiene (QC): 4 (Supervision) Shower/Bathe Self (QC): 4 (CGA in stand) Upper Body Dressing (QC): 4 (SBA, pt donned overhead shirt in stand.) Lower Body Dressing (QC): 4 (CGA, 1 LOB balance backwards during pant hike requiring steadying assist) On/Off Footwear (QC): 4 (SBA, pt required min VCs with sock aide. Pt able to doff/don gripper socks.) Toileting Hygiene (QC): 4 (SBA-CGA) Toilet Transfer (QC): 4 (CGA) Assessment/Plan Assessment and Plan Assess & Plan/Chief Complaint Assessment: Right hip fracture s/p repair s/p HAP with hypoxic and hypercapneic respiratory failure requiring transfer to ICU from ARU now back to ARU again Chronic AF OAC maintained HTN HLP Parkinson's COPD Post op anemia acute blood loss requiring IV iron infusions Iron deficiency B12 def Osteoporosis Plan: Cefdinir to complete PNA treatment Pain control Monitor labs PT OT protocol 08/29/2022: Pain control Monitor BP 08/30/2022: Monitor pain Monitor labs 08/31/2022: Monitor closely Pain controlled 09/01/2022: Monitor closely 09/02/2022: Monitor closely Monitor BP (1) Closed right hip fracture Status: Acute (2) Paroxysmal atrial fibrillation (3) HLD (hyperlipidemia) (4) Parkinson's disease (5) Hypertension (6) Acute on chronic respiratory failure with hypoxia and hypercapnia FLORENCIA TAPIA DO Sep 02, 2022 15:51
[2022-09-02 19:42] VITALS: BP 119/64
[2022-09-02] MEDS: AtorvaSTATin TABLET 10 MG TABLET PO SCH (21:39)
[2022-09-02] MEDS: MELATONIN 3 MG TABLET PO PRN (21:40)
[2022-09-03] MEDS: HYDROcodone/APAP 5 MG/325 MG (LORTAB) TAB PO PRN ×2 (00:53→07:58)
--- NOTE | 2022-09-03 04:59 | PM&R Progress Note ---
Subjective HPI/CC On Admission Date Seen by Provider: Sep 03, 2022 Time Seen by Provider: 08:30 Subjective/Events-last exam 09/03/2022: Much improved status Pain is controlled Looking forward to DC home 09/02/2022: No major issues Working with therapy Ambulating well No pain 09/01/2022: No major issues Daughter at bedside No pain reported until last night due to no pain pill for 14 hours 08/31/2022: Doing exceptionally well Pain controlled No falls No confusion 08/30/2022: Patient having a good day Family at bedside Pain controlled Wants to DC soon 08/29/2022: Much improved status Pain controlled Completing PO abx now O2 maintained No falls BM+ Review of Systems General: Fatigue, Malaise Objective Exam Vital Signs Vital Signs Date Time Temp Pulse Resp B/P (MAP) Pulse Ox O2 Delivery O2 Flow Rate FiO2 09/03/22 23:27 36.9 68 97 09/03/22 20:30 Nasal Cannula 3.00 09/03/22 19:31 16 119/68 (85) Capillary Refill : General Appearance: No Apparent Distress, WD/WN, Chronically ill, Thin HEENT: PERRL/EOMI, Normal ENT Inspection, Pharynx Normal Neck: Full Range of Motion, Normal Inspection, Non Tender, Supple, Carotid Bruit Respiratory: Chest Non Tender, Lungs Clear, No Accessory Muscle Use, No Respiratory Distress, Decreased Breath Sounds Cardiovascular: No Edema, No Gallop, No JVD, No Murmur, Normal Peripheral Pulses, Irregularly Irregular Gastrointestinal: Normal Bowel Sounds, No Organomegaly, No Pulsatile Mass, Non Tender, Soft Back: Normal Inspection, No CVA Tenderness, No Vertebral Tenderness Extremity: Normal Capillary Refill, Normal Inspection, Normal Range of Motion, Non Tender, No Calf Tenderness, No Pedal Edema Neurologic/Psychiatric: Alert, Oriented x3, Normal Mood/Affect, product development worker II-XII Norm as Tested, Abnormal Gait, Depressed Affect, Motor Weakness (right leg) Skin: Normal Color, Warm/Dry Lymphatic: No Adenopathy Results/Procedures Lab Laboratory Tests 09/03/22 06:25 Patient resulted labs reviewed. FIM Transfers Therapy Code Descriptions/Definitions Functional [place] Measure: 0=Not Assessed/NA 4=Minimal Assistance 1=Total Assistance 5=Supervision or Setup 2=Maximal Assistance 6=Modified [place] 3=Moderate Assistance 7=Complete IndependenceSCALE: Activities may be completed with or without assistive devices. 9-Artaxiqbxb-tgxwvfo completes the activity by him/herself with no assistance from a helper. 5-Set-up or Clean-up Assistance-helper sets up or cleans up; patient completes activity. [place] assists only prior to or following the activity. 4-Supervision or Touching Assistance-helper provides verbal cues and/or touchi ng/steadying and/or contact guard assistance as patient completes activity. Assistance may be provided throughout the activity or intermittently. 3-Partial/Moderate Assistance-helper does LESS THAN HALF the effort. [place] lifts, holds or supports trunk or limbs, but provides less than half the effort. 2-Substantial/Maximal Assistance-helper does MORE THAN HALF the effort. [place] lifts or holds trunk or limbs and provides more than half the effort. 5-Hmfnopndk-pgkdri does ALL the effort. Patient does none of the effort to complete the activity. Or, the assistance of 2 or more helpers is required for the patient to complete the activity. If activity was not attempted, code reason: 7-Patient Refused. 9-Not Applicable-not attempted and the patient did not perform the activity befo re the current illness, exacerbation or injury. 10-Not Attempted due to Environmental Limitations-(lack of equipment, weather restraints, etc.). 88-Not Attempted due to Medical Conditions or Safety Concerns. Roll Left to Right (QC): 3 Sit to Lying (QC): 3 Sit to Stand (QC): 4 Chair/Bfo-gt-Rwemb Xfer(QC): 4 Car Transfer (QC): 3 Gait Training Does the Patient Walk?: Yes Distance: 120'x2 Walk 10 feet (QC): 4 Walk 50 ft with 2 Turns(QC): 4 Walk 150 ft (QC): 4 (x3) Walking 10ft/uneven surface-QC: 88 Gait Persons Needed: 1 Gait Assistive Device: FWW Wheelchair Training Does the Pt Use a Wheelchair?: Yes Distance: 120'x2 Wheel 50 ft with 2 turns (QC): 2 Wheel 150 ft (QC): 88 Type of Wheelchair: Manual Stair Training 1 Step (curb) (QC): 88 4 Steps (QC): 88 12 Steps (QC): 88 Balance Picking up an Object (QC): 4 (CGA using a bowling alley operator) ADL-Treatment Eating (QC): 6 Oral Hygiene (QC): 4 (Supervision) Shower/Bathe Self (QC): 4 (CGA in stand) Upper Body Dressing (QC): 4 (SBA, pt donned overhead shirt in stand.) Lower Body Dressing (QC): 4 (CGA, 1 LOB balance backwards during pant hike requiring steadying assist) On/Off Footwear (QC): 4 (SBA, pt required min VCs with sock aide. Pt able to doff/don gripper socks.) Toileting Hygiene (QC): 4 (SBA-CGA) Toilet Transfer (QC): 4 (CGA) Assessment/Plan Assessment and Plan Assess & Plan/Chief Complaint Assessment: Right hip fracture s/p repair s/p HAP with hypoxic and hypercapneic respiratory failure requiring transfer to ICU from ARU now back to ARU again Chronic AF OAC maintained HTN HLP Parkinson's COPD Post op anemia acute blood loss requiring IV iron infusions Iron deficiency B12 def Osteoporosis Plan: Cefdinir to complete PNA treatment Pain control Monitor labs PT OT protocol 08/29/2022: Pain control Monitor BP 08/30/2022: Monitor pain Monitor labs 08/31/2022: Monitor closely Pain controlled 09/01/2022: Monitor closely 09/02/2022: Monitor closely Monitor BP 09/03/2022: Supportive care to continue (1) Closed right hip fracture Status: Acute (2) Paroxysmal atrial fibrillation (3) HLD (hyperlipidemia) (4) Parkinson's disease (5) Hypertension (6) Acute on chronic respiratory failure with hypoxia and hypercapnia FLORENCIA TAPIA DO Sep 03, 2022 04:59
[2022-09-03 06:31] LABS: BASOPHILS % (AUTO) 1 % (0-10); EOSINOPHILS # (AUTO) 0.4 10^3/uL (0.0-0.3); EOSINOPHILS % (AUTO) 6 % (0-10); HEMATOCRIT 36 % (35-52); HEMOGLOBIN 10.9 g/dL (11.5-16.0); LYMPHOCYTES # (AUTO) 1.5 10^3/uL (1.0-4.0); LYMPHOCYTES % (AUTO) 23 % (12-44); MEAN CORPUSCULAR HEMOGLOBIN 29 pg (25-34); MEAN CORPUSCULAR HGB CONC 31 g/dL (32-36); MEAN CORPUSCULAR VOLUME 96 fL (80-99); MEAN PLATELET VOLUME 9.3 fL (9.0-12.2); MONOCYTES # (AUTO) 0.6 10^3/uL (0.0-1.0); MONOCYTES % (AUTO) 10 % (0-12); NEUTROPHILS # (AUTO) 3.8 10^3/uL (1.8-7.8); NEUTROPHILS % (AUTO) 60 % (42-75); PLATELET COUNT 378 10^3/uL (130-400); WHITE BLOOD COUNT 6.3 10^3/uL (4.3-11.0)
[2022-09-03] MEDS: CYANOCOBALAMIN 1,000 MCG (VITAMIN B-12) TABLET PO SCH (06:54)
[2022-09-03] MEDS: MULTIVIT W/MINERALS TAB (THERAGRAN M) PO SCH (06:54)
[2022-09-03] MEDS: SINEMET 25/100 (CARBIDOPA/LEVODOPA) TAB PO SCH ×5 (06:54→18:47)
[2022-09-03 06:56] LABS: ALBUMIN 3.1 GM/DL (3.2-4.5); BILIRUBIN,TOTAL 0.7 MG/DL (0.1-1.0); CALCIUM 9.3 MG/DL (8.5-10.1); CREATININE SERUM 0.66 MG/DL (0.60-1.30); POTASSIUM 3.7 MMOL/L (3.6-5.0); TOTAL PROTEIN 6.2 GM/DL (6.4-8.2)
[2022-09-03] MEDS: rOPINIRole 1 MG (REQUIP) TABLET PO SCH ×3 (07:55→21:56)
[2022-09-03] MEDS: amLODIPine 5 MG (NORVASC) TAB PO SCH (07:57)
[2022-09-03] MEDS: DOCUSATE SODIUM 100 MG (COLACE) CAP PO SCH ×2 (07:57→21:56)
[2022-09-03] MEDS: SERTRALINE 50 MG (ZOLOFT) TABLET PO SCH (07:57)
[2022-09-03] MEDS: APIXABAN 2.5 MG (ELIQUIS) TABLET PO SCH ×2 (07:57→21:56)
[2022-09-03] MEDS: SENNA W/DOCUSATE (SENOKOT S) TABLET PO SCH ×2 (07:57→21:57)
[2022-09-03] MEDS: FLECAINIDE 100 MG (TAMBOCOR) TAB PO SCH ×2 (07:57→21:56)
[2022-09-03] MEDS: polyethylene glycoL POWDER 17 GM (MIRALAX) PACK PO SCH ×2 (07:59→19:58)
[2022-09-03 08:00] VITALS: BP 177/74
--- NOTE | 2022-09-03 08:55 | Occupational Ther Daily Note ---
OT Current Status-Daily Note Subjective Pt in recliner, agreeable to OT tx. Pt did not verbalize pain during session. ADL-Treatment Therapy Code Descriptions/Definitions Functional [place] Measure: 0=Not Assessed/NA 4=Minimal Assistance 1=Total Assistance 5=Supervision or Setup 2=Maximal Assistance 6=Modified [place] 3=Moderate Assistance 7=Complete IndependenceSCALE: Activities may be completed with or without assistive devices. 1-Xtvrewkkdg-uxktklp completes the activity by him/herself with no assistance from a helper. 5-Set-up or Clean-up Assistance-helper sets up or cleans up; patient completes activity. [place] assists only prior to or following the activity. 4-Supervision or Touching Assistance-helper provides verbal cues and/or touching/steadying and/or contact guard assistance as patient completes activity. Assistance may be provided throughout the activity or intermittently. 3-Partial/Moderate Assistance-helper does LESS THAN HALF the effort. [place] lifts, holds or supports trunk or limbs, but provides less than half the effort. 2-Substantial/Maximal Assistance-helper does MORE THAN HALF the effort. [place] lifts or holds trunk or limbs and provides more than half the effort. 8-Qmldumwgq-nwxncl does ALL the effort. Patient does none of the effort to complete the activity. Or, the assistance of 2 or more helpers is required for the patient to complete the activity. If activity was not attempted, code reason: 7-Patient Refused. 9-Not Applicable-not attempted and the patient did not perform the activity before the current illness, exacerbation or injury. 10-Not Attempted due to Environmental Limitations-(lack of equipment, weather restraints, etc.). 88-Not Attempted due to Medical Conditions or Safety Concerns. Eating (QC): 6 Shower/Bathe Self (QC): 5 Upper Body Dressing (QC): 5 Lower Body Dressing (QC): 4 (supervision during pant hike. No AE) On/Off Footwear: 5 (Set up, no AE.) Toileting Hygiene (QC): 6 Toilet Transfer (QC): 6 Other Treatment Pt in recliner, used FWW to transfer into bathroom onto [facility] over toilet. Pt completed toileting IND, then transferred to TN. Pt doffed clothes, completed shower, then donned clothes. Pt returned to recliner using FWW, SBA. OT educated pt on safety of managing O2 tubing, she verbalized understanding. If pt is to return home on O2, further education on O2 tubing management recommended. Post tx, pt in recliner, call light in reach and all needs met. Education OT Patient Education: Correct positioning, Energy conservation, Modified ADL techniques, Progress toward Goal/Update tx plan, Purpose of tx/functional activities, Rehab process Teaching Recipient: Patient Teaching Methods: Discussion Response to Teaching: Verbalize Understanding OT Short Term Goals Short Term Goals Time Frame: Sep 07, 2022 Upper body dressin Lower body dressin Putting on/taking off footwear: 5 OT Call Center Director Goals Call Center Director Goals Time Frame: Sep 21, 2022 Acute change in mental status: 0 Inattention: 0 Disorganized thinkin Altered level of consciousness: 0 Eating (QC): 6 Oral Hygiene (QC): 6 Toileting Hygiene (QC): 6 Shower/Bathe Self (QC): 5 Upper Body Dressing (QC): 6 Lower Body Dressing (QC): 6 On/Off Footwear (QC): 6 Additional Goals: 1-Demonstrate ADL Tasks, 2-Verbalize Understanding, 3- ImproveStrength/Junior 1=Demonstrate adherence to instructed precautions during ADL tasks. 2=Patient will verbalize/demonstrate understanding of assistive devices/modifications for ADL. 3=Patient will improve strength/tolerance for activity to enable patient to perform ADL's. OT Education/Plan Problem List/Assessment Assessment: Decreased Activ Tolerance, Decreased UE Strength, Impaired Funct Balance, Impaired I ADL's, Impaired Self-Care Skills Discharge Recommendations Plan/Recommendations: Continue POC Treatment Plan/Plan of Care Patient would benefit from OT for education, treatment and training to promote independence in ADL's, mobility, safety and/or upper extremity function for ADL's. Plan of Care: ADL Retraining, Functional Mobility, Group Exercise/Act as Ind, UE Funct Exercise/Act Treatment Duration: Sep 21, 2022 Frequency: At least 5 of 7 days/Wk (IRF) Estimated Hrs Per Day: 1.5 hours per day Agreement: Yes Rehab Potential: Fair Time Start Time: 08:00 Stop Time: 09:00 DATE: Sep 03, 2022 Total Time Billed (hr/min): 60 Billed Treatment Time 1, ADL 4 VASHTI DUARTE OT Sep 03, 2022 08:55
[2022-09-03 11:07] VITALS: BP 132/64
--- NOTE | 2022-09-03 11:21 | Occupational Ther Daily Note ---
OT Current Status-Daily Note Subjective Pt up in recliner, agreeable to OT Tx. Pt has 1 visitor present throughout tx, pt able to complete OT tx while conversing with visitor. ADL-Treatment Therapy Code Descriptions/Definitions Functional [place] Measure: 0=Not Assessed/NA 4=Minimal Assistance 1=Total Assistance 5=Supervision or Setup 2=Maximal Assistance 6=Modified [place] 3=Moderate Assistance 7=Complete IndependenceSCALE: Activities may be completed with or without assistive devices. 5-Amtzwdajdi-hjfniyj completes the activity by him/herself with no assistance from a helper. 5-Set-up or Clean-up Assistance-helper sets up or cleans up; patient completes activity. [place] assists only prior to or following the activity. 4-Supervision or Touching Assistance-helper provides verbal cues and/or touching/steadying and/or contact guard assistance as patient completes activity. Assistance may be provided throughout the activity or intermittently. 3-Partial/Moderate Assistance-helper does LESS THAN HALF the effort. [place] lifts, holds or supports trunk or limbs, but provides less than half the effort. 2-Substantial/Maximal Assistance-helper does MORE THAN HALF the effort. [place] lifts or holds trunk or limbs and provides more than half the effort. 8-Jpevdsaat-ojgmzh does ALL the effort. Patient does none of the effort to complete the activity. Or, the assistance of 2 or more helpers is required for the patient to complete the activity. If activity was not attempted, code reason: 7-Patient Refused. 9-Not Applicable-not attempted and the patient did not perform the activity before the current illness, exacerbation or injury. 10-Not Attempted due to Environmental Limitations-(lack of equipment, weather restraints, etc.). 88-Not Attempted due to Medical Conditions or Safety Concerns. Other Treatment Pt up in recliner, OT tx focused on increasing BUE strength and activity tolerance. Pt completed UE reaching task, 1lb wrist weights bilaterally. Pt placed 1" pegs into foam pegboard, alternating hands, completing x100 pegs. Post tx, pt in recliner, call light in reach and all needs met. OT Short Term Goals Short Term Goals Time Frame: Sep 07, 2022 Upper body dressin Lower body dressin Putting on/taking off footwear: 5 OT Senior Living Goals Senior Living Goals Time Frame: Sep 21, 2022 Acute change in mental status: 0 Inattention: 0 Disorganized thinkin Altered level of consciousness: 0 Eating (QC): 6 Oral Hygiene (QC): 6 Toileting Hygiene (QC): 6 Shower/Bathe Self (QC): 5 Upper Body Dressing (QC): 6 Lower Body Dressing (QC): 6 On/Off Footwear (QC): 6 Additional Goals: 1-Demonstrate ADL Tasks, 2-Verbalize Understanding, 3- ImproveStrength/Junior 1=Demonstrate adherence to instructed precautions during ADL tasks. 2=Patient will verbalize/demonstrate understanding of assistive devices/modifications for ADL. 3=Patient will improve strength/tolerance for activity to enable patient to perform ADL's. OT Education/Plan Problem List/Assessment Assessment: Decreased Activ Tolerance, Decreased UE Strength, Impaired Funct Balance, Impaired I ADL's, Impaired Self-Care Skills Discharge Recommendations Plan/Recommendations: Continue POC Treatment Plan/Plan of Care Patient would benefit from OT for education, treatment and training to promote independence in ADL's, mobility, safety and/or upper extremity function for ADL's. Plan of Care: ADL Retraining, Functional Mobility, Group Exercise/Act as Ind, UE Funct Exercise/Act Treatment Duration: Sep 21, 2022 Frequency: At least 5 of 7 days/Wk (IRF) Estimated Hrs Per Day: 1.5 hours per day Agreement: Yes Rehab Potential: Fair Time Start Time: 11:00 Stop Time: 11:30 DATE: Sep 03, 2022 Total Time Billed (hr/min): 30 Billed Treatment Time 1, FA 2 VASHTI DUARTE OT Sep 03, 2022 11:21
--- NOTE | 2022-09-03 12:06 | Physical Therapy Daily Note ---
PT Daily Note-Current Subjective Pt sitting in recliner w/family present upon arrival. Pt agrees to PT. Pain Numeric Pain Scale: 3 Location Body Site: Hip Pain Description: Ache Section J - Health Conditions 1. Rarely or not at all 2. Occasionally 3. Frequently 4. Almost constantly 8. Unable to answer Pain Effect on Sleep: 2 Pain Interference with Therapy: 2 Pain Interference w/Day-to-Day: 2 Mental Status Patient Orientation: Person, Place, Situation Attachments: Oxygen (3L) Transfers SCALE: Activities may be completed with or without assistive devices. 7-Kxykigucvm-unwkwhg completes the activity by him/herself with no assistance from a helper. 5-Set-up or Clean-up Assistance-helper sets up or cleans up; patient completes activity. [place] assists only prior to or following the activity. 4-Supervision or Touching Assistance-helper provides verbal cues and/or touching/steadying and/or contact guard assistance as patient completes activity. Assistance may be provided throughout the activity or intermittently. 3-Partial/Moderate Assistance-helper does LESS THAN HALF the effort. [place] lifts, holds or supports trunk or limbs, but provides less than half the effort. 2-Substantial/Maximal Assistance-helper does MORE THAN HALF the effort. [place] lifts or holds trunk or limbs and provides more than half the effort. 5-Nreydhoap-rnbhlf does ALL the effort. Patient does none of the effort to complete the activity. Or, the assistance of 2 or more helpers is required for the patient to complete the activity. If activity was not attempted, code reason: 7-Patient Refused. 9-Not Applicable-not attempted and the patient did not perform the activity before the current illness, exacerbation or injury. 10-Not Attempted due to Environmental Limitations-(lack of equipment, weather restraints, etc.). 88-Not Attempted due to Medical Conditions or Safety Concerns. Sit to Stand (QC): 5 Weight Bearing Right Lower Extremity: Right Weight Bearing/Tolerated Gait Training Does the Patient Walk?: Yes Distance: 225' x2 Walk 10 feet (QC): 5 Walk 50 ft with 2 Turns(QC): 5 Walk 150 ft (QC): 5 Gait Assistive Device: FWW WATER CHASER gives VC to pt & family during amb. for what to watch for when fatigued. Exercises Seated Therapy Exercises: Ankle pumps, Long arc quads, Hip flexion, Hamstring Curls, Hip abd/add, Glut set Seated Reps: 15 Treatments TF from recliner to standing, decline need for BR. Pt amb in hallway, taking RB as needed for fatigue. Pt educ. over energy conservation, safety net maker. for cooking and amb. as well as benefits to continue to make progress/push self for improved strength & endurance. Pt completes Seated EX then amb in hallway returning to room to rest in recliner. All needs met, call light in hand. Assessment Current Status: Good Progress Pt has improved with transfers & amb. PT Glove Turner Goals Glove Turner Goals PT Glove Turner Goals Time Frame: Sep 11, 2022 Roll Left & Right (QC): 6 Sit to Lying (QC): 6 Lying-Sitting on Side/Bed(QC): 6 Sit to Stand (QC): 6 Chair/Hfq-mq-Sbqae Xfer(QC): 4 (SBA) Toilet Transfer (QC): 4 (SBA) Car Transfer (QC): 4 (SBA) Does the Patient Walk: Yes Walk 10 feet (QC): 4 (SBA) Walk 50ft with 2 Turns (QC): 4 (SBA) Walk 150 ft (QC): 4 (SBA) Walking 10ft on Uneven Surface: 4 (SBA) 1 Step (curb) (QC): 4 (CGA) 4 Steps (QC): 4 (CGA) 12 Steps (QC): 88 Picking up an Object (QC): 6 Wheel 50 feet with 2 turns (QC: 9 Wheel 150 feet: 9 PT Plan Problem List Problem List: Activity Tolerance Treatment/Plan Treatment Plan: Continue Plan of Care Treatment Plan: Bed Mobility, Education, Functional Activity Junior, Functional Strength, Group Therapy, Gait, Safety, Therapeutic Exercise, Transfers Treatment Duration: Sep 11, 2022 Frequency: At least 5 of 7 days/Wk (IRF) Estimated Hrs Per Day: 1.5 hours per day Patient and/or Family Agrees t: Yes Safety Risks/Education Patient Education: Gait Training, Correct Positioning, Safety Issues Teaching Recipient: Patient, Family Teaching Methods: Demonstration, Discussion Response to Teaching: Verbalize Understanding, Return Demonstration Time Time In: 1000 Time Out: 1100 DATE: Sep 03, 2022 Total Billed Treatment Time: 60 Total Billed Treatment 1, GT x2 (30m), FA (15m) & EX (15m) JUSTIN WASHINGTON WATER CHASER Sep 03, 2022 12:06
--- NOTE | 2022-09-03 16:02 | Physical Therapy Daily Note ---
PT Daily Note-Current Subjective Pt sitting in recliner w/daughter present. Pt agrees to PT. Pain Location: Right Location Body Site: Knee Pain Description: Ache Comment: Reports but doesn't rate Section J - Health Conditions 1. Rarely or not at all 2. Occasionally 3. Frequently 4. Almost constantly 8. Unable to answer Pain Effect on Sleep: 2 Pain Interference with Therapy: 2 Pain Interference w/Day-to-Day: 2 Mental Status Patient Orientation: Person, Place, Time, Situation Transfers SCALE: Activities may be completed with or without assistive devices. 8-Jnisnmpvch-wkjulty completes the activity by him/herself with no assistance from a helper. 5-Set-up or Clean-up Assistance-helper sets up or cleans up; patient completes activity. [place] assists only prior to or following the activity. 4-Supervision or Touching Assistance-helper provides verbal cues and/or touching/steadying and/or contact guard assistance as patient completes activity. Assistance may be provided throughout the activity or intermittently. 3-Partial/Moderate Assistance-helper does LESS THAN HALF the effort. [place] lifts, holds or supports trunk or limbs, but provides less than half the effort. 2-Substantial/Maximal Assistance-helper does MORE THAN HALF the effort. [place] lifts or holds trunk or limbs and provides more than half the effort. 1-Eqkuyauuc-msnqny does ALL the effort. Patient does none of the effort to complete the activity. Or, the assistance of 2 or more helpers is required for the patient to complete the activity. If activity was not attempted, code reason: 7-Patient Refused. 9-Not Applicable-not attempted and the patient did not perform the activity before the current illness, exacerbation or injury. 10-Not Attempted due to Environmental Limitations-(lack of equipment, weather restraints, etc.). 88-Not Attempted due to Medical Conditions or Safety Concerns. Sit to Lying (QC): 4 Lying to Sitting/Side of Bed(Q: 4 Sit to Stand (QC): 5 Weight Bearing Right Lower Extremity: Right Weight Bearing/Tolerated Treatments Pt practices on bed mobility corby. on lifting R LE into & out of bed using gait belt loop. Pt returns to Supine in bed to rest at end of tx. All needs met, call light in hand. Assessment Current Status: Good Progress Pt makes progress w/using gait belt loop to assist bringing R LE into/out of bed. PT Payloader Operator Goals Payloader Operator Goals PT Payloader Operator Goals Time Frame: Sep 11, 2022 Roll Left & Right (QC): 6 Sit to Lying (QC): 6 Lying-Sitting on Side/Bed(QC): 6 Sit to Stand (QC): 6 Chair/Fon-ow-Xnuwg Xfer(QC): 4 (SBA) Toilet Transfer (QC): 4 (SBA) Car Transfer (QC): 4 (SBA) Does the Patient Walk: Yes Walk 10 feet (QC): 4 (SBA) Walk 50ft with 2 Turns (QC): 4 (SBA) Walk 150 ft (QC): 4 (SBA) Walking 10ft on Uneven Surface: 4 (SBA) 1 Step (curb) (QC): 4 (CGA) 4 Steps (QC): 4 (CGA) 12 Steps (QC): 88 Picking up an Object (QC): 6 Wheel 50 feet with 2 turns (QC: 9 Wheel 150 feet: 9 PT Plan Problem List Problem List: Activity Tolerance Treatment/Plan Treatment Plan: Continue Plan of Care Treatment Plan: Bed Mobility, Education, Functional Activity Junior, Functional Strength, Group Therapy, Gait, Safety, Therapeutic Exercise, Transfers Treatment Duration: Sep 11, 2022 Frequency: At least 5 of 7 days/Wk (IRF) Estimated Hrs Per Day: 1.5 hours per day Patient and/or Family Agrees t: Yes Safety Risks/Education Patient Education: Transfer Techniques, Correct Positioning Teaching Recipient: Patient, Family Teaching Methods: Demonstration, Discussion Response to Teaching: Verbalize Understanding, Return Demonstration Time Time In: 1330 Time Out: 1400 DATE: Sep 03, 2022 Total Billed Treatment Time: 30 Total Billed Treatment 1, FA x2 (30m) JUSTIN WASHINGTON METAL WEATHER STRIPPER Sep 03, 2022 16:02
[2022-09-03 19:31] VITALS: BP 119/68
[2022-09-03] MEDS: AtorvaSTATin TABLET 10 MG TABLET PO SCH (21:56)
[2022-09-03] MEDS: MELATONIN 3 MG TABLET PO PRN (21:56)
[2022-09-03 23:27] VITALS: BP 119/68
--- NOTE | 2022-09-04 05:03 | PM&R Progress Note ---
Subjective HPI/CC On Admission Date Seen by Provider: Sep 04, 2022 Time Seen by Provider: 08:30 Subjective/Events-last exam 09/04/2022: Doing well Getting stronger No falls No pain reported 09/03/2022: Much improved status Pain is controlled Looking forward to DC home 09/02/2022: No major issues Working with therapy Ambulating well No pain 09/01/2022: No major issues Daughter at bedside No pain reported until last night due to no pain pill for 14 hours 08/31/2022: Doing exceptionally well Pain controlled No falls No confusion 08/30/2022: Patient having a good day Family at bedside Pain controlled Wants to DC soon 08/29/2022: Much improved status Pain controlled Completing PO abx now O2 maintained No falls BM+ Review of Systems General: Fatigue, Malaise Objective Exam Vital Signs Vital Signs Date Time Temp Pulse Resp B/P (MAP) Pulse Ox O2 Delivery O2 Flow Rate FiO2 09/04/22 20:30 Nasal Cannula 3.00 09/04/22 19:52 36.7 78 16 146/73 (97) 96 Capillary Refill : General Appearance: No Apparent Distress, WD/WN, Chronically ill, Thin HEENT: PERRL/EOMI, Normal ENT Inspection, Pharynx Normal Neck: Full Range of Motion, Normal Inspection, Non Tender, Supple, Carotid Bruit Respiratory: Chest Non Tender, Lungs Clear, No Accessory Muscle Use, No Respiratory Distress, Decreased Breath Sounds Cardiovascular: No Edema, No Gallop, No JVD, No Murmur, Normal Peripheral Pulses, Irregularly Irregular Gastrointestinal: Normal Bowel Sounds, No Organomegaly, No Pulsatile Mass, Non Tender, Soft Back: Normal Inspection, No CVA Tenderness, No Vertebral Tenderness Extremity: Normal Capillary Refill, Normal Inspection, Normal Range of Motion, Non Tender, No Calf Tenderness, No Pedal Edema Neurologic/Psychiatric: Alert, Oriented x3, Normal Mood/Affect, banquet food server II-XII Norm as Tested, Abnormal Gait, Depressed Affect, Motor Weakness (right leg) Skin: Normal Color, Warm/Dry Lymphatic: No Adenopathy Results/Procedures Lab Patient resulted labs reviewed. FIM Transfers Therapy Code Descriptions/Definitions Functional [place] Measure: 0=Not Assessed/NA 4=Minimal Assistance 1=Total Assistance 5=Supervision or Setup 2=Maximal Assistance 6=Modified [place] 3=Moderate Assistance 7=Complete IndependenceSCALE: Activities may be completed with or without assistive devices. 6-Jucjyjfcoy-oyqjnen completes the activity by him/herself with no assistance from a helper. 5-Set-up or Clean-up Assistance-helper sets up or cleans up; patient completes activity. [place] assists only prior to or following the activity. 4-Supervision or Touching Assistance-helper provides verbal cues and/or touchi ng/steadying and/or contact guard assistance as patient completes activity. Assistance may be provided throughout the activity or intermittently. 3-Partial/Moderate Assistance-helper does LESS THAN HALF the effort. [place] lifts, holds or supports trunk or limbs, but provides less than half the effort. 2-Substantial/Maximal Assistance-helper does MORE THAN HALF the effort. [place] lifts or holds trunk or limbs and provides more than half the effort. 8-Djopsiiuv-virgbq does ALL the effort. Patient does none of the effort to complete the activity. Or, the assistance of 2 or more helpers is required for the patient to complete the activity. If activity was not attempted, code reason: 7-Patient Refused. 9-Not Applicable-not attempted and the patient did not perform the activity before the current illness, exacerbation or injury. 10-Not Attempted due to Environmental Limitations-(lack of equipment, weather restraints, etc.). 88-Not Attempted due to Medical Conditions or Safety Concerns. Roll Left to Right (QC): 3 Sit to Lying (QC): 4 Sit to Stand (QC): 5 Chair/Wvm-ru-Vogvy Xfer(QC): 4 Car Transfer (QC): 3 Gait Training Does the Patient Walk?: Yes Distance: 225' x2 Walk 10 feet (QC): 5 Walk 50 ft with 2 Turns(QC): 5 Walk 150 ft (QC): 5 Walking 10ft/uneven surface-QC: 88 Gait Persons Needed: 1 Gait Assistive Device: FWW Wheelchair Training Does the Pt Use a Wheelchair?: Yes Distance: 120'x2 Wheel 50 ft with 2 turns (QC): 2 Wheel 150 ft (QC): 88 Type of Wheelchair: Manual Stair Training 1 Step (curb) (QC): 88 4 Steps (QC): 88 12 Steps (QC): 88 Balance Picking up an Object (QC): 4 (CGA using a medical advisor) ADL-Treatment Eating (QC): 6 Oral Hygiene (QC): 4 (Supervision) Shower/Bathe Self (QC): 5 Upper Body Dressing (QC): 5 Lower Body Dressing (QC): 4 (supervision during pant hike. No AE) On/Off Footwear (QC): 5 (Set up, no AE.) Toileting Hygiene (QC): 6 Toilet Transfer (QC): 6 Assessment/Plan Assessment and Plan Assess & Plan/Chief Complaint Assessment: Right hip fracture s/p repair s/p HAP with hypoxic and hypercapneic respiratory failure requiring transfer to ICU from ARU now back to ARU again Chronic AF OAC maintained HTN HLP Parkinson's COPD Post op anemia acute blood loss requiring IV iron infusions Iron deficiency B12 def Osteoporosis Plan: Cefdinir to complete PNA treatment Pain control Monitor labs PT OT protocol 08/29/2022: Pain control Monitor BP 08/30/2022: Monitor pain Monitor labs 08/31/2022: Monitor closely Pain controlled 09/01/2022: Monitor closely 09/02/2022: Monitor closely Monitor BP 09/03/2022: Supportive care to continue 09/04/2022: Monitor closely (1) Closed right hip fracture Status: Acute (2) Paroxysmal atrial fibrillation (3) HLD (hyperlipidemia) (4) Parkinson's disease (5) Hypertension (6) Acute on chronic respiratory failure with hypoxia and hypercapnia FLORENCIA TAPIA DO Sep 04, 2022 05:03
[2022-09-04] MEDS: CYANOCOBALAMIN 1,000 MCG (VITAMIN B-12) TABLET PO SCH (06:37)
[2022-09-04] MEDS: MULTIVIT W/MINERALS TAB (THERAGRAN M) PO SCH (06:37)
[2022-09-04] MEDS: SINEMET 25/100 (CARBIDOPA/LEVODOPA) TAB PO SCH ×5 (06:37→19:28)
[2022-09-04] MEDS: HYDROcodone/APAP 5 MG/325 MG (LORTAB) TAB PO PRN ×2 (07:39→21:20)
[2022-09-04] MEDS: IRON SUCROSE 200 MG/10 ML (VENOFER) VIAL IV SCH (07:45)
[2022-09-04 07:46] VITALS: BP 132/79
[2022-09-04] MEDS: SERTRALINE 50 MG (ZOLOFT) TABLET PO SCH (07:46)
[2022-09-04] MEDS: rOPINIRole 1 MG (REQUIP) TABLET PO SCH ×3 (07:46→21:13)
[2022-09-04] MEDS: polyethylene glycoL POWDER 17 GM (MIRALAX) PACK PO SCH ×2 (07:47→20:24)
[2022-09-04] MEDS: DOCUSATE SODIUM 100 MG (COLACE) CAP PO SCH ×2 (07:47→21:13)
[2022-09-04] MEDS: SENNA W/DOCUSATE (SENOKOT S) TABLET PO SCH ×2 (07:47→21:14)
[2022-09-04] MEDS: FLECAINIDE 100 MG (TAMBOCOR) TAB PO SCH ×2 (07:47→21:13)
[2022-09-04] MEDS: amLODIPine 5 MG (NORVASC) TAB PO SCH (07:47)
[2022-09-04] MEDS: APIXABAN 2.5 MG (ELIQUIS) TABLET PO SCH ×2 (07:47→21:14)
--- NOTE | 2022-09-04 12:17 | Physical Therapy Daily Note ---
PT Daily Note-Current Subjective Pt sitting in recliner upon arrival. Pt agrees to PT. Wound Care Nurses complete skin check during tx. Pain Numeric Pain Scale: 3 Location: Right Location Body Site: Knee Pain Description: Ache Section J - Health Conditions 1. Rarely or not at all 2. Occasionally 3. Frequently 4. Almost constantly 8. Unable to answer Pain Effect on Sleep: 2 Pain Interference with Therapy: 2 Pain Interference w/Day-to-Day: 2 Mental Status Patient Orientation: Person, Place, Time, Situation Attachments: Oxygen (3L) Transfers SCALE: Activities may be completed with or without assistive devices. 3-Bpbykftgha-ccghtth completes the activity by him/herself with no assistance from a helper. 5-Set-up or Clean-up Assistance-helper sets up or cleans up; patient completes activity. [place] assists only prior to or following the activity. 4-Supervision or Touching Assistance-helper provides verbal cues and/or touching/steadying and/or contact guard assistance as patient completes activity. Assistance may be provided throughout the activity or intermittently. 3-Partial/Moderate Assistance-helper does LESS THAN HALF the effort. [place] lifts, holds or supports trunk or limbs, but provides less than half the effort. 2-Substantial/Maximal Assistance-helper does MORE THAN HALF the effort. [place] lifts or holds trunk or limbs and provides more than half the effort. 5-Nredqfdwo-buavby does ALL the effort. Patient does none of the effort to complete the activity. Or, the assistance of 2 or more helpers is required for the patient to complete the activity. If activity was not attempted, code reason: 7-Patient Refused. 9-Not Applicable-not attempted and the patient did not perform the activity b efore the current illness, exacerbation or injury. 10-Not Attempted due to Environmental Limitations-(lack of equipment, weather restraints, etc.). 88-Not Attempted due to Medical Conditions or Safety Concerns. Sit to Stand (QC): 5 Weight Bearing Right Lower Extremity: Right Weight Bearing/Tolerated Gait Training Does the Patient Walk?: Yes Distance: 200', 150' Walk 10 feet (QC): 5 Walk 50 ft with 2 Turns(QC): 5 Walk 150 ft (QC): 5 Gait Assistive Device: FWW Treatments Pt works on sit to stand TF during Wound Care Nurse Skin Checks. Pt amb. in hallway, taking RB as needed for fatigue. Pt also practices lifting R LE into & out of bed for improved bed mobility/TF. Pt returns to room to rest at end of tx. All needs met, call light in hand. Assessment Current Status: Good Progress Pt has improved with strength, mobility & TF. PT Presser All Around Goals Presser All Around Goals PT Presser All Around Goals Time Frame: Sep 11, 2022 Roll Left & Right (QC): 6 Sit to Lying (QC): 6 Lying-Sitting on Side/Bed(QC): 6 Sit to Stand (QC): 6 Chair/Crn-kw-Dqhje Xfer(QC): 4 (SBA) Toilet Transfer (QC): 4 (SBA) Car Transfer (QC): 4 (SBA) Does the Patient Walk: Yes Walk 10 feet (QC): 4 (SBA) Walk 50ft with 2 Turns (QC): 4 (SBA) Walk 150 ft (QC): 4 (SBA) Walking 10ft on Uneven Surface: 4 (SBA) 1 Step (curb) (QC): 4 (CGA) 4 Steps (QC): 4 (CGA) 12 Steps (QC): 88 Picking up an Object (QC): 6 Wheel 50 feet with 2 turns (QC: 9 Wheel 150 feet: 9 PT Plan Problem List Problem List: Activity Tolerance Treatment/Plan Treatment Plan: Continue Plan of Care Treatment Plan: Bed Mobility, Education, Functional Activity Junior, Functional Strength, Group Therapy, Gait, Safety, Therapeutic Exercise, Transfers Treatment Duration: Sep 11, 2022 Frequency: At least 5 of 7 days/Wk (IRF) Estimated Hrs Per Day: 1.5 hours per day Patient and/or Family Agrees t: Yes Time Time In: 1000 Time Out: 1100 DATE: Sep 04, 2022 Total Billed Treatment Time: 60 Total Billed Treatment 1, GT x2 (30m) & FA x2 (30m) JUSTIN WASHINGTON CERTIFIED ACTIVITIES DIRECTOR Sep 04, 2022 12:17
--- NOTE | 2022-09-04 12:40 | Occupational Ther Daily Note ---
OT Current Status-Daily Note Subjective Pt alert, sitting in recliner. Pt agrees to therapy. No c/o pain, c/o not sleeping well last night. Mental Status/Objective Patient Orientation: Person, Place, Time, Situation Attachments: IV ADL-Treatment Pt declines shower, agrees to sponge bath. Supplies given to pt for bathing then pt able to complete bath by self. Set up for UBD/LBD/footwear then pt completed by self. Pt did not use AE for dressing. Pt stood at sink, to complete grooming, declined oral care due to completed prior to OT session. Pt ambulated around room using FWW to work on gathering own supplies and placing in designated areas, supervision. After session, pt sitting in recliner with call light/phone in reach. All needs met in room. Therapy Code Descriptions/Definitions Functional [place] Measure: 0=Not Assessed/NA 4=Minimal Assistance 1=Total Assistance 5=Supervision or Setup 2=Maximal Assistance 6=Modified [place] 3=Moderate Assistance 7=Complete IndependenceSCALE: Activities may be completed with or without assistive devices. 7-Nngrhteaas-ympcufk completes the activity by him/herself with no assistance from a helper. 5-Set-up or Clean-up Assistance-helper sets up or cleans up; patient completes activity. [place] assists only prior to or following the activity. 4-Supervision or Touching Assistance-helper provides verbal cues and/or touching/steadying and/or contact guard assistance as patient completes activity. Assistance may be provided throughout the activity or intermittently. 3-Partial/Moderate Assistance-helper does LESS THAN HALF the effort. [place] lifts, holds or supports trunk or limbs, but provides less than half the effort. 2-Substantial/Maximal Assistance-helper does MORE THAN HALF the effort. [place] lifts or holds trunk or limbs and provides more than half the effort. 4-Lrwavohxp-lrpjrc does ALL the effort. Patient does none of the effort to complete the activity. Or, the assistance of 2 or more helpers is required for the patient to complete the activity. If activity was not attempted, code reason: 7-Patient Refused. 9-Not Applicable-not attempted and the patient did not perform the activity before the current illness, exacerbation or injury. 10-Not Attempted due to Environmental Limitations-(lack of equipment, weather restraints, etc.). 88-Not Attempted due to Medical Conditions or Safety Concerns. Shower/Bathe Self (QC): 5 Upper Body Dressing (QC): 5 Lower Body Dressing (QC): 5 On/Off Footwear: 5 OT Short Term Goals Short Term Goals Time Frame: Sep 07, 2022 Upper body dressin Lower body dressin Putting on/taking off footwear: 5 OT Hopper Feeder Goals Hopper Feeder Goals Time Frame: Sep 21, 2022 Acute change in mental status: 0 Inattention: 0 Disorganized thinkin Altered level of consciousness: 0 Eating (QC): 6 Oral Hygiene (QC): 6 Toileting Hygiene (QC): 6 Shower/Bathe Self (QC): 5 Upper Body Dressing (QC): 6 Lower Body Dressing (QC): 6 On/Off Footwear (QC): 6 Additional Goals: 1-Demonstrate ADL Tasks, 2-Verbalize Understanding, 3- ImproveStrength/Junior 1=Demonstrate adherence to instructed precautions during ADL tasks. 2=Patient will verbalize/demonstrate understanding of assistive devices/modifications for ADL. 3=Patient will improve strength/tolerance for activity to enable patient to perform ADL's. OT Education/Plan Problem List/Assessment Assessment: Decreased Activ Tolerance, Impaired Self-Care Skills Discharge Recommendations Plan/Recommendations: Continue POC Treatment Plan/Plan of Care Patient would benefit from OT for education, treatment and training to promote independence in ADL's, mobility, safety and/or upper extremity function for ADL's. Plan of Care: ADL Retraining, Functional Mobility, Group Exercise/Act as Ind, UE Funct Exercise/Act Treatment Duration: Sep 21, 2022 Frequency: At least 5 of 7 days/Wk (IRF) Estimated Hrs Per Day: 1.5 hours per day Agreement: Yes Rehab Potential: Fair Time Start Time: 09:00 Stop Time: 10:00 DATE: Sep 04, 2022 Total Time Billed (hr/min): 60 Billed Treatment Time 1 visit-ADL 4 (60 min) ASTER ALEJANDRE Sep 04, 2022 12:40
--- NOTE | 2022-09-04 14:44 | Therapy Group Daily Note ---
Therapy Daily Group Note Patient Education Topic Home Safety Session Ratio (pt:therapist): 3:1 Goal of Session: Home Safety Strategies, Use of Adaptive Equipment Goal Met for this Session: Yes Pt Benefit of Group: Contributions to Others, F/U Use of Strategies @Home, Increased Functional Safety, Increased Functional Strength, Improved Cognition, Recognition of Peers, Socialization Other/Notes Pt ambulated using FWW to OT/PT group. Group consisted of introductions (name, place living, favorite food), socialization and education on kitchen mobility/adaptive equipment. Pt introduced self appropriately and actively listened to peers. Pt was able to discuss own strategies and stories of kitchen ideas or strategy for safe mobility. Pt acknowledged understanding of strategies therapy staff was educating on. After session, pt sitting in recliner with call light/phone in reach. Start Time: 13:00 Stop Time: 14:15 Total Billed Treatment Time: 75 Total Billed Treatment 1-GRP ASTER ALEJANDRE Sep 04, 2022 14:44
[2022-09-04 19:52] VITALS: BP 146/73
[2022-09-04] MEDS: AtorvaSTATin TABLET 10 MG TABLET PO SCH (21:14)
[2022-09-04] MEDS: MELATONIN 3 MG TABLET PO PRN (21:14)
[2022-09-05] MEDS: SINEMET 25/100 (CARBIDOPA/LEVODOPA) TAB PO SCH ×5 (06:14→19:46)
[2022-09-05] MEDS: HYDROcodone/APAP 5 MG/325 MG (LORTAB) TAB PO PRN ×3 (06:14→15:21)
[2022-09-05] MEDS: MULTIVIT W/MINERALS TAB (THERAGRAN M) PO SCH (06:14)
[2022-09-05] MEDS: CYANOCOBALAMIN 1,000 MCG (VITAMIN B-12) TABLET PO SCH (06:14)
--- NOTE | 2022-09-05 07:30 | PM&R Progress Note ---
Subjective HPI/CC On Admission Date Seen by Provider: Sep 05, 2022 Time Seen by Provider: 11:00 Subjective/Events-last exam 09/05/2022: Ready for DC tomorrow No pain reported No falls Family supportive of DC 09/04/2022: Doing well Getting stronger No falls No pain reported 09/03/2022: Much improved status Pain is controlled Looking forward to DC home 09/02/2022: No major issues Working with therapy Ambulating well No pain 09/01/2022: No major issues Daughter at bedside No pain reported until last night due to no pain pill for 14 hours 08/31/2022: Doing exceptionally well Pain controlled No falls No confusion 08/30/2022: Patient having a good day Family at bedside Pain controlled Wants to DC soon 08/29/2022: Much improved status Pain controlled Completing PO abx now O2 maintained No falls BM+ Review of Systems General: Fatigue, Malaise Objective Exam Vital Signs Vital Signs Date Time Temp Pulse Resp B/P (MAP) Pulse Ox O2 Delivery O2 Flow Rate FiO2 09/05/22 21:30 97 Nasal Cannula 2.00 09/05/22 19:19 36.6 65 18 104/66 (79) Capillary Refill : General Appearance: No Apparent Distress, WD/WN, Chronically ill, Thin HEENT: PERRL/EOMI, Normal ENT Inspection, Pharynx Normal Neck: Full Range of Motion, Normal Inspection, Non Tender, Supple, Carotid Bruit Respiratory: Chest Non Tender, Lungs Clear, No Accessory Muscle Use, No Respiratory Distress, Decreased Breath Sounds Cardiovascular: No Edema, No Gallop, No JVD, No Murmur, Normal Peripheral Pulses, Irregularly Irregular Gastrointestinal: Normal Bowel Sounds, No Organomegaly, No Pulsatile Mass, Non Tender, Soft Back: Normal Inspection, No CVA Tenderness, No Vertebral Tenderness Extremity: Normal Capillary Refill, Normal Inspection, Normal Range of Motion, Non Tender, No Calf Tenderness, No Pedal Edema Neurologic/Psychiatric: Alert, Oriented x3, Normal Mood/Affect, news clipping cutter II-XII Norm as Tested, Abnormal Gait, Depressed Affect, Motor Weakness (right leg) Skin: Normal Color, Warm/Dry Lymphatic: No Adenopathy Results/Procedures Lab Patient resulted labs reviewed. FIM Transfers Therapy Code Descriptions/Definitions Functional [place] Measure: 0=Not Assessed/NA 4=Minimal Assistance 1=Total Assistance 5=Supervision or Setup 2=Maximal Assistance 6=Modified [place] 3=Moderate Assistance 7=Complete IndependenceSCALE: Activities may be completed with or without assistive devices. 4-Nbwcrlkwgg-yuwnkap completes the activity by him/herself with no assistance from a helper. 5-Set-up or Clean-up Assistance-helper sets up or cleans up; patient completes activity. [place] assists only prior to or following the activity. 4-Supervision or Touching Assistance-helper provides verbal cues and/or touching/steadying and/or contact guard assistance as patient completes activity. Assistance may be provided throughout the activity or intermittently. 3-Partial/Moderate Assistance-helper does LESS THAN HALF the effort. [place] lifts, holds or supports trunk or limbs, but provides less than half the effort. 2-Substantial/Maximal Assistance-helper does MORE THAN HALF the effort. [place] lifts or holds trunk or limbs and provides more than half the effort. 4-Fjdtoxdoq-irytfk does ALL the effort. Patient does none of the effort to complete the activity. Or, the assistance of 2 or more helpers is required for the patient to complete the activity. If activity was not attempted, code reason: 7-Patient Refused. 9-Not Applicable-not attempted and the patient did not perform the activity before the current illness, exacerbation or injury. 10-Not Attempted due to Environmental Limitations-(lack of equipment, weather restraints, etc.). 88-Not Attempted due to Medical Conditions or Safety Concerns. Roll Left to Right (QC): 3 Sit to Lying (QC): 4 Sit to Stand (QC): 5 Chair/Scx-fl-Ldhnu Xfer(QC): 4 Car Transfer (QC): 3 Gait Training Does the Patient Walk?: Yes Distance: 200', 150' Walk 10 feet (QC): 5 Walk 50 ft with 2 Turns(QC): 5 Walk 150 ft (QC): 5 Walking 10ft/uneven surface-QC: 88 Gait Persons Needed: 1 Gait Assistive Device: FWW Wheelchair Training Does the Pt Use a Wheelchair?: Yes Distance: 120'x2 Wheel 50 ft with 2 turns (QC): 2 Wheel 150 ft (QC): 88 Type of Wheelchair: Manual Stair Training 1 Step (curb) (QC): 88 4 Steps (QC): 88 12 Steps (QC): 88 Balance Picking up an Object (QC): 4 (CGA using a import export manager) ADL-Treatment Eating (QC): 6 Oral Hygiene (QC): 4 (Supervision) Shower/Bathe Self (QC): 5 Upper Body Dressing (QC): 5 Lower Body Dressing (QC): 5 On/Off Footwear (QC): 5 Toileting Hygiene (QC): 6 Toilet Transfer (QC): 6 Assessment/Plan Assessment and Plan Assess & Plan/Chief Complaint Assessment: Right hip fracture s/p repair s/p HAP with hypoxic and hypercapneic respiratory failure requiring transfer to ICU from ARU now back to ARU again Chronic AF OAC maintained HTN HLP Parkinson's COPD Post op anemia acute blood loss requiring IV iron infusions Iron deficiency B12 def Osteoporosis Plan: Cefdinir to complete PNA treatment Pain control Monitor labs PT OT protocol 08/29/2022: Pain control Monitor BP 08/30/2022: Monitor pain Monitor labs 08/31/2022: Monitor closely Pain controlled 09/01/2022: Monitor closely 09/02/2022: Monitor closely Monitor BP 09/03/2022: Supportive care to continue 09/04/2022: Monitor closely 09/05/2022: Much improved Info for Parkinson's wellness program will be given since I spoke to Denilson (1) Closed right hip fracture Status: Acute (2) Paroxysmal atrial fibrillation (3) HLD (hyperlipidemia) (4) Parkinson's disease (5) Hypertension (6) Acute on chronic respiratory failure with hypoxia and hypercapnia FLORENCIA TAPIA DO Sep 05, 2022 07:30
[2022-09-05 08:00] VITALS: BP 136/75
--- NOTE | 2022-09-05 09:00 | Physical Therapy Daily Note ---
PT Daily Note-Current Subjective Pt sitting in recliner upon arrival. Pt agrees to PT for QC scoring items. Pt reports since she was able to elevate R LE, it is less swollen. Pain Numeric Pain Scale: 7 Location: Right Location Body Site: Knee Pain Description: Ache Section J - Health Conditions 1. Rarely or not at all 2. Occasionally 3. Frequently 4. Almost constantly 8. Unable to answer Pain Effect on Sleep: 2 Pain Interference with Therapy: 2 Pain Interference w/Day-to-Day: 2 Mental Status Patient Orientation: Person, Place, Time, Situation Transfers SCALE: Activities may be completed with or without assistive devices. 9-Swkapkczcy-fmxdigw completes the activity by him/herself with no assistance from a helper. 5-Set-up or Clean-up Assistance-helper sets up or cleans up; patient completes activity. [place] assists only prior to or following the activity. 4-Supervision or Touching Assistance-helper provides verbal cues and/or touching/steadying and/or contact guard assistance as patient completes activity. Assistance may be provided throughout the activity or intermittently. 3-Partial/Moderate Assistance-helper does LESS THAN HALF the effort. [place] lifts, holds or supports trunk or limbs, but provides less than half the effort. 2-Substantial/Maximal Assistance-helper does MORE THAN HALF the effort. [place] lifts or holds trunk or limbs and provides more than half the effort. 2-Pqmaujdhd-xmhvls does ALL the effort. Patient does none of the effort to complete the activity. Or, the assistance of 2 or more helpers is required for the patient to complete the activity. If activity was not attempted, code reason: 7-Patient Refused. 9-Not Applicable-not attempted and the patient did not perform the activity before the current illness, exacerbation or injury. 10-Not Attempted due to Environmental Limitations-(lack of equipment, weather restraints, etc.). 88-Not Attempted due to Medical Conditions or Safety Concerns. Weight Bearing Right Lower Extremity: Right Weight Bearing/Tolerated Gait Training Does the Patient Walk?: Yes Distance: 200' Walk 10 feet (QC): 6 Walk 50 ft with 2 Turns(QC): 6 Walk 150 ft (QC): 6 Gait Assistive Device: FWW Wheelchair Training Does the Pt Use a Wheelchair?: No Stair Training Stair Training: Handrails/: 2 handrails #of Steps: 6 1 Step (curb) (QC): 5 4 Steps (QC): 5 12 Steps (QC): 88 Stairs: Pattern: Step to Balance Picking up an Object (QC): 6 Treatments Pt completes QC scoring items listed before returning to room to rest in recliner at end of tx. All needs met, call light in hand. Assessment Current Status: Good Progress Pt has improved with transfers and mobility. PT Fci Goals Fci Goals PT Jukebox Operator Goals Time Frame: Sep 11, 2022 Roll Left & Right (QC): 6 Sit to Lying (QC): 6 Lying-Sitting on Side/Bed(QC): 6 Sit to Stand (QC): 6 Chair/Qgf-hr-Vcqhx Xfer(QC): 4 (SBA) Toilet Transfer (QC): 4 (SBA) Car Transfer (QC): 4 (SBA) Does the Patient Walk: Yes Walk 10 feet (QC): 4 (SBA) Walk 50ft with 2 Turns (QC): 4 (SBA) Walk 150 ft (QC): 4 (SBA) Walking 10ft on Uneven Surface: 4 (SBA) 1 Step (curb) (QC): 4 (CGA) 4 Steps (QC): 4 (CGA) 12 Steps (QC): 88 Picking up an Object (QC): 6 Wheel 50 feet with 2 turns (QC: 9 Wheel 150 feet: 9 PT Plan Problem List Problem List: Activity Tolerance Treatment/Plan Treatment Plan: Continue Plan of Care Treatment Plan: Bed Mobility, Education, Functional Activity Junior, Functional Strength, Group Therapy, Gait, Safety, Therapeutic Exercise, Transfers Treatment Duration: Sep 11, 2022 Frequency: At least 5 of 7 days/Wk (IRF) Estimated Hrs Per Day: 1.5 hours per day Patient and/or Family Agrees t: Yes Time Time In: 800 Time Out: 900 DATE: Sep 05, 2022 Total Billed Treatment Time: 60 Total Billed Treatment 1, GT (20m) & FA x3 (40m) JUSTIN WASHINGTON PTA Sep 05, 2022 09:00
--- NOTE | 2022-09-05 09:19 | Occupational Ther Daily Note ---
OT Current Status-Daily Note Subjective Pt alert, sitting in recliner. Pt agrees to therapy. No c/o pain. Mental Status/Objective Patient Orientation: Person, Place, Time, Situation Attachments: IV, Oxygen ADL-Treatment Pt agrees to shower. Using FWW, pt able to retrieve clothing from drawer independently. Using shower bench, pt able to complete shower with grabbars and hand held shower independently. Pt independent with upper body dressing, footwear and lower body dressing. Pt independent with toileting. Standing at sink, pt completes oral care independently. Independent with eating. Using leg cattle dehorner, pt able to go from EOB to supine independently. After session, pt sitting in recliner with call light/phone in reach. All needs met in room. Therapy Code Descriptions/Definitions Functional [place] Measure: 0=Not Assessed/NA 4=Minimal Assistance 1=Total Assistance 5=Supervision or Setup 2=Maximal Assistance 6=Modified [place] 3=Moderate Assistance 7=Complete IndependenceSCALE: Activities may be completed with or without assistive devices. 3-Uhvzluqjiy-ypeffvh completes the activity by him/herself with no assistance from a helper. 5-Set-up or Clean-up Assistance-helper sets up or cleans up; patient completes activity. [place] assists only prior to or following the activity. 4-Supervision or Touching Assistance-helper provides verbal cues and/or touching/steadying and/or contact guard assistance as patient completes activity. Assistance may be provided throughout the activity or intermittently. 3-Partial/Moderate Assistance-helper does LESS THAN HALF the effort. [place] lifts, holds or supports trunk or limbs, but provides less than half the effort. 2-Substantial/Maximal Assistance-helper does MORE THAN HALF the effort. [place] lifts or holds trunk or limbs and provides more than half the effort. 5-Vjygpboxo-trazpw does ALL the effort. Patient does none of the effort to complete the activity. Or, the assistance of 2 or more helpers is required for the patient to complete the activity. If activity was not attempted, code reason: 7-Patient Refused. 9-Not Applicable-not attempted and the patient did not perform the activity before the current illness, exacerbation or injury. 10-Not Attempted due to Environmental Limitations-(lack of equipment, weather restraints, etc.). 88-Not Attempted due to Medical Conditions or Safety Concerns. Eating (QC): 6 Oral Hygiene (QC): 6 Shower/Bathe Self (QC): 6 Upper Body Dressing (QC): 6 Lower Body Dressing (QC): 6 On/Off Footwear: 6 Toileting Hygiene (QC): 6 Toilet Transfer (QC): 6 BIMS CAM BIMS Expression of Ideas and Wants: Without Difficulty Understanding Verbal Content: Understands Brief Interview/Mental Status: Yes IRF GARY BIMS: IRF GARY BIMS Response (Comments) Value Repitition of Three Words Three 3 Recalls Socks Yes, After Cueing (Wear) 1 Recalls Blue Yes, No Cue Required 2 Recalls Bed Yes, No Cue Required 2 Year Correct 3 Month Accurate Within 5 Days 2 Day Correct 1 Total 14 Patient Normally Able to Recal: Current Session, Location of own room, That he/she in a hsp Should Staff Asses. Mental St.: No CAM Mental Status Change/Baseline: 0 Inattention: 0 Disorganized thinkin Altered level of consciousness: 0 OT Short Term Goals Short Term Goals Time Frame: Sep 07, 2022 Upper body dressin Lower body dressin Putting on/taking off footwear: 5 OT Lead Die Molder Goals Longterm Goals Time Frame: Sep 21, 2022 Acute change in mental status: 0 Inattention: 0 Disorganized thinkin Altered level of consciousness: 0 Eating (QC): 6 (met) Oral Hygiene (QC): 6 (met) Toileting Hygiene (QC): 6 (met) Shower/Bathe Self (QC): 5 (met) Upper Body Dressing (QC): 6 (met) Lower Body Dressing (QC): 6 (met) On/Off Footwear (QC): 6 (met) Additional Goals: 1-Demonstrate ADL Tasks, 2-Verbalize Understanding, 3- ImproveStrength/Junior 1=Demonstrate adherence to instructed precautions during ADL tasks. 2=Patient will verbalize/demonstrate understanding of assistive devices/modifications for ADL. 3=Patient will improve strength/tolerance for activity to enable patient to perform ADL's. OT Education/Plan Problem List/Assessment Assessment: Decreased Activ Tolerance, Decreased UE Strength, Impaired Self- Care Skills Discharge Recommendations Plan/Recommendations: Continue POC Treatment Plan/Plan of Care Patient would benefit from OT for education, treatment and training to promote independence in ADL's, mobility, safety and/or upper extremity function for ADL's. Plan of Care: ADL Retraining, Functional Mobility, Group Exercise/Act as Ind, UE Funct Exercise/Act Treatment Duration: Sep 21, 2022 Frequency: At least 5 of 7 days/Wk (IRF) Estimated Hrs Per Day: 1.5 hours per day Agreement: Yes Rehab Potential: Fair Time Start Time: 09:00 Stop Time: 10:00 DATE: Sep 05, 2022 Total Time Billed (hr/min): 60 Billed Treatment Time 1 visit-ADL 4 (60 min) ASTER ALEJANDRE Sep 05, 2022 09:19
[2022-09-05] MEDS: polyethylene glycoL POWDER 17 GM (MIRALAX) PACK PO SCH ×2 (09:38→21:46)
[2022-09-05] MEDS: APIXABAN 2.5 MG (ELIQUIS) TABLET PO SCH ×2 (09:42→21:42)
[2022-09-05] MEDS: amLODIPine 5 MG (NORVASC) TAB PO SCH (09:42)
[2022-09-05] MEDS: FLECAINIDE 100 MG (TAMBOCOR) TAB PO SCH ×2 (09:43→21:42)
[2022-09-05] MEDS: SERTRALINE 50 MG (ZOLOFT) TABLET PO SCH (09:43)
[2022-09-05] MEDS: rOPINIRole 1 MG (REQUIP) TABLET PO SCH ×3 (09:43→21:43)
[2022-09-05] MEDS: SENNA W/DOCUSATE (SENOKOT S) TABLET PO SCH ×2 (10:21→21:42)
[2022-09-05] MEDS: DOCUSATE SODIUM 100 MG (COLACE) CAP PO SCH ×2 (10:21→21:43)
--- NOTE | 2022-09-05 14:29 | Therapy Group Daily Note ---
Therapy Daily Group Note Patient Education Topic Home Safety Exercises LE Seated Exercise, UE Exercise Session Ratio (pt:therapist): 3:1 Goal of Session: Education on ARU Expectations, Home Safety Strategies, UE/LE Strengthing, Use of Adaptive Equipment Goal Met for this Session: Yes Pt Benefit of Group: Contributions to Others, F/U Use of Strategies @Home, Increased Functional Safety, Increased Functional Strength, Improved Cognition, Recognition of Peers, Socialization Other/Notes Pt ambulated using FWW to [facility] area for OT/PT group. Group consisted of introductions (name, place living, life hack/trick), socialization, education on tips/tricks to make IADLs/ADLs easier and B UE/LE seated exercises. Pt introduced self appropriately and actively listened to peers. Pt acknowledged understanding of educational topic by giving own strategies and ideas. Pt able to complete UE/LE seated exercises without difficulty. After session, pt lying in bed with call light/phone in reach. All needs met in room. Start Time: 13:00 Stop Time: 14:00 Total Billed Treatment Time: 60 Total Billed Treatment 1, JUSTIN JENKINS HEALTH SERVICE COORDINATOR Sep 05, 2022 14:29
[2022-09-05 19:19] VITALS: BP 104/66
[2022-09-05] MEDS: AtorvaSTATin TABLET 10 MG TABLET PO SCH (21:43)
[2022-09-05] MEDS: MELATONIN 3 MG TABLET PO PRN (21:43)
[2022-09-06] MEDS: HYDROcodone/APAP 5 MG/325 MG (LORTAB) TAB PO PRN ×3 (01:17→11:10)
--- NOTE | 2022-09-06 05:23 | D/C HH Face to Face Order ---
D/C HH Face to Face Orders Reconcile Patient Problems Problems Reviewed?: Yes Instructions for Patient HH Patient Instructions/FollowUp: Dr Morales as scheduled Physician to follow Patient: Andrew Discharge Diet for Home: No Restrictions Patient Problems: Hip fx Patient Data-Allergies,Ht & Wt Patient Allergies: Coded Allergies: Sulfa (Sulfonamide Antibiotics) (Verified Allergy, Unknown, hives, 11/16/19) Height (Feet): 5 Height (Inches): 7.00 Weight (Pounds): 123 Weight (Ounces): 2.0 Home Health Need/Face to Face Date of Face to Face: Sep 06, 2022 Clinical Findings: Generalized weakness and fatigue, Instability, Muscle weakness I have seen Pt hukp-pt-evpz: Yes Discharged To: Home Diagnosis/Conditions: Hip fx Patient is Homebound due to: [place] fall risk due to instabilty, Muscle weakness Homebound Status Due to the above stated illness, injury or surgical procedure (medical condition or diagnosis) and associated clinical findings, the patient is homebound because of his/her inability to leave home except with aid of a supportive device and/or person AND leaving the home requires a considerable and taxing effort or is medically contraindicated. Pt req the following assistanc: Walker Home Health Nursing Orders Home Health Services Order: Nursing Services, Repairer Sash And Door-Evaluate & Treat, Physical Therapy-Evaluate & Treat Certify Stmt I certify that this patient is under my care and that I, a nurse practitioner or a physician; a assistant child care teacher working with me, had a face to face encounter that - meets the physician face to face encounter requirements with this patient as dated. FLORENCIA MORALES DO Sep 06, 2022 05:23
--- NOTE | 2022-09-06 05:23 | Discharge Summary ---
Diagnosis/Chief Complaint Date of Admission Aug 28, 2022 at 10:45 Date of Discharge Discharge Date: Sep 06, 2022 Discharge Diagnosis Assessment: Right hip fracture s/p repair s/p HAP with hypoxic and hypercapneic respiratory failure requiring transfer to ICU from ARU now back to ARU again Chronic AF OAC maintained HTN HLP Parkinson's COPD Post op anemia acute blood loss requiring IV iron infusions Iron deficiency B12 def Osteoporosis Plan: Cefdinir to complete PNA treatment Pain control Monitor labs PT OT protocol 08/29/2022: Pain control Monitor BP 08/30/2022: Monitor pain Monitor labs 08/31/2022: Monitor closely Pain controlled 09/01/2022: Monitor closely 09/02/2022: Monitor closely Monitor BP 09/03/2022: Supportive care to continue 09/04/2022: Monitor closely 09/05/2022: Much improved Info for Parkinson's wellness program will be given since I spoke to Denilson (1) Closed right hip fracture Status: Acute (2) Paroxysmal atrial fibrillation (3) HLD (hyperlipidemia) (4) Parkinson's disease (5) Hypertension (6) Acute on chronic respiratory failure with hypoxia and hypercapnia Discharge Summary Discharge Physical Examination Allergies: Coded Allergies: Sulfa (Sulfonamide Antibiotics) (Verified Allergy, Unknown, hives, 11/16/19) Vitals & I&Os Vital Signs Date Time Temp Pulse Resp B/P (MAP) Pulse Ox O2 Delivery O2 Flow Rate FiO2 09/06/22 11:30 36.3 82 20 143/82 98 Nasal Cannula 2.50 General Appearance: Alert, Oriented X3, Cooperative Respiratory: Clear to Auscultation Cardiovascular: Regular Rate Psych/Mental Status: Mental Status NL Hospital Course Was the Problem List Reviewed?: Yes Uneventful course after she was readmitted to ARU following an acute on chronic resp failure episode requiring ICU transfer but recovered quickly and returned to rehab. Patient recovered quickly and was able to participate in all therapies and regain function with use of AD. No major events occurred and she was seen daily by this examiner and was able to complete iron infusions and maintain O2 as she does at home and was deemed stable for DC. Labs (last 24 hrs) Laboratory Tests 08/29/22 05:33: White Blood Count 6.2, Red Blood Count 3.60L, Hemoglobin 10.3L, Hematocrit 34L, Mean Corpuscular Volume 93, Mean Corpuscular Hemoglobin 29, Mean Corpuscular Hemoglobin Concent 31L, Red Cell Distribution Width 14.7H, Platelet Count 261, Mean Platelet Volume 10.0, Immature Granulocyte % (Auto) 0, Neutrophils (%) (Auto) 61, Lymphocytes (%) (Auto) 20, Monocytes (%) (Auto) 12, Eosinophils (%) (Auto) 6, Basophils (%) (Auto) 1, Neutrophils # (Auto) 3.8, Lymphocytes # (Auto) 1.2, Monocytes # (Auto) 0.8, Eosinophils # (Auto) 0.4H, Basophils # (Auto) 0.0, Immature Granulocyte # (Auto) 0.0, Sodium Level 143, Potassium Level 3.5L, Chloride Level 103, Carbon Dioxide Level 31, Anion Gap 9, Blood Urea Nitrogen 14, Creatinine 0.64, Estimat Glomerular Filtration Rate 87, BUN/Creatinine Ratio 22, Glucose Level 92, Calcium Level 8.9, Corrected Calcium 9.8, Total Bilirubin 0.8, Aspartate Amino Transf (AST/SGOT) 24, Alanine Aminotransferase (ALT/SGPT) 18, Alkaline Phosphatase 56, Total Protein 5.9L, Albumin 2.9L 09/03/22 06:25: White Blood Count 6.3, Red Blood Count 3.74L, Hemoglobin 10.9L, Hematocrit 36, Mean Corpuscular Volume 96, Mean Corpuscular Hemoglobin 29, Mean Corpuscular Hemoglobin Concent 31L, Red Cell Distribution Width 15.3H, Platelet Count 378, Mean Platelet Volume 9.3, Immature Granulocyte % (Auto) 0, Neutrophils (%) (Auto) 60, Lymphocytes (%) (Auto) 23, Monocytes (%) (Auto) 10, Eosinophils (%) (Auto) 6, Basophils (%) (Auto) 1, Neutrophils # (Auto) 3.8, Lymphocytes # (Auto) 1.5, Monocytes # (Auto) 0.6, Eosinophils # (Auto) 0.4H, Basophils # (Auto) 0.0, Immature Granulocyte # (Auto) 0.0, Sodium Level 142, Potassium Level 3.7, Chloride Level 101, Carbon Dioxide Level 33H, Anion Gap 8, Blood Urea Nitrogen 13, Creatinine 0.66, Estimat Glomerular Filtration Rate 86, BUN/Creatinine Ratio 20, Glucose Level 87, Calcium Level 9.3, Corrected Calcium 10.0, Total Bilirubin 0.7, Aspartate Amino Transf (AST/SGOT) 27, Alanine Aminotransferase (ALT/SGPT) 16, Alkaline Phosphatase 84, Total Protein 6.2L, Albumin 3.1L Pending Labs Laboratory Tests 08/29/22 05:33: White Blood Count 6.2, Red Blood Count 3.60, Hemoglobin 10.3, Hematocrit 34, Mean Corpuscular Volume 93, Mean Corpuscular Hemoglobin 29, Mean Corpuscular Hemoglobin Concent 31, Red Cell Distribution Width 14.7, Platelet Count 261, Mean Platelet Volume 10.0, Immature Granulocyte % (Auto) 0, Neutrophils (%) (Auto) 61, Lymphocytes (%) (Auto) 20, Monocytes (%) (Auto) 12, Eosinophils (%) (Auto) 6, Basophils (%) (Auto) 1, Neutrophils # (Auto) 3.8, Lymphocytes # (Auto) 1.2, Monocytes # (Auto) 0.8, Eosinophils # (Auto) 0.4, Basophils # (Auto) 0.0, Immature Granulocyte # (Auto) 0.0, Sodium Level 143, Potassium Level 3.5, Chloride Level 103, Carbon Dioxide Level 31, Anion Gap 9, Blood Urea Nitrogen 14, Creatinine 0.64, Estimat Glomerular Filtration Rate 87, BUN/Creatinine Ratio 22, Glucose Level 92, Calcium Level 8.9, Corrected Calcium 9.8, Total Bilirubin 0.8, Aspartate Amino Transf (AST/SGOT) 24, Alanine Aminotransferase (ALT/SGPT) 18, Alkaline Phosphatase 56, Total Protein 5.9, Albumin 2.9 09/03/22 06:25: White Blood Count 6.3, Red Blood Count 3.74, Hemoglobin 10.9, Hematocrit 36, Mean Corpuscular Volume 96, Mean Corpuscular Hemoglobin 29, Mean Corpuscular Hemoglobin Concent 31, Red Cell Distribution Width 15.3, Platelet Count 378, Mean Platelet Volume 9.3, Immature Granulocyte % (Auto) 0, Neutrophils (%) (Auto) 60, Lymphocytes (%) (Auto) 23, Monocytes (%) (Auto) 10, Eosinophils (%) (Auto) 6, Basophils (%) (Auto) 1, Neutrophils # (Auto) 3.8, Lymphocytes # (Auto) 1.5, Monocytes # (Auto) 0.6, Eosinophils # (Auto) 0.4, Basophils # (Auto) 0.0, Immature Granulocyte # (Auto) 0.0, Sodium Level 142, Potassium Level 3.7, Chloride Level 101, Carbon Dioxide Level 33, Anion Gap 8, Blood Urea Nitrogen 13, Creatinine 0.66, Estimat Glomerular Filtration Rate 86, BUN/Creatinine Ratio 20, Glucose Level 87, Calcium Level 9.3, Corrected Calcium 10.0, Total Bilirubin 0.7, Aspartate Amino Transf (AST/SGOT) 27, Alanine Aminotransferase (ALT/SGPT) 16, Alkaline Phosphatase 84, Total Protein 6.2, Albumin 3.1 Discharge Home Medications: Active Scripts Active Reported Carbidopa-Levodopa 25-100 Tab (Carbidopa/Levodopa) 25 Mg-100 Mg Tablet 1 Ea PO 0700,1000,1300,1600,1900 Melatonin 10 Mg Tablet 10 Mg PO HS Multivitamin 1 Each Tablet 1 Each PO DAILY B-Complex Tablet (Vitamin B Complex/Folic Acid) 0.4 Mg Tablet 1 Ea PO DAILY Sertraline HCl 25 Mg Tablet 25 Mg PO DAILY Ropinirole HCl 2 Mg Tablet 2 Mg PO TID Amlodipine Besylate 5 Mg Tablet 5 Mg PO DAILY Tramadol HCl 50 Mg Tablet 50 Mg PO BID PRN Ocuvite Eye + Multi Tablet (Mv-Mn/FA/Vit K/Lycop/Lut/Zeaxa) 1 Each Tablet 1 Each PO DAILY Vitamin C (Ascorbic Acid) 500 Mg Capsule 500 Mg PO DAILY Flecainide Acetate 100 Mg Tablet 50 Mg PO BID TAKES OF A 100MG TAB Docusate Sodium 100 Mg Capsule 100 Mg PO BID Diazepam 10 Mg Tablet 10 Mg PO HS Lovastatin 10 Mg Tablet 10 Mg PO HS Eliquis (Apixaban) 2.5 Mg Tablet 2.5 Mg PO BID Instructions to patient/family Please see electronic discharge instructions given to patient. Diagnosis/Problems Diagnosis/Problems (1) Closed right hip fracture Status: Acute (2) Paroxysmal atrial fibrillation (3) HLD (hyperlipidemia) (4) Parkinson's disease (5) Hypertension (6) Acute on chronic respiratory failure with hypoxia and hypercapnia FLORENCIA TAPIA DO Sep 06, 2022 05:23
[2022-09-06] MEDS: MULTIVIT W/MINERALS TAB (THERAGRAN M) PO SCH (07:08)
[2022-09-06] MEDS: SINEMET 25/100 (CARBIDOPA/LEVODOPA) TAB PO SCH ×2 (07:08→09:18)
[2022-09-06] MEDS: CYANOCOBALAMIN 1,000 MCG (VITAMIN B-12) TABLET PO SCH (07:08)
[2022-09-06 07:56] VITALS: BP 159/90
--- NOTE | 2022-09-06 07:58 | Therapy Team Discharge Summary ---
Therapy Discharge Summary Discharge Recommendations Date of Discharge Physical Therapy Roll Left to Right (QC): 3 Sit to Lying (QC): 4 Lying to Sitting/Side of Bed(Q: 4 Sit to Stand (QC): 5 Chair/Aun-hf-Lsdnz Xfer(QC): 4 Toilet Transfer (QC): 5 Car Transfer (QC): 3 Does the Patient Walk: Yes Mode of Locomotion: Walk Anticipated Mode of Locomotion: Walk Walk 10 feet (QC): 6 Walk 50 ft with 2 Turns(QC): 6 Walk 150 ft (QC): 6 Walking 10ft on uneven surface: 88 Distance: 20' Gait Assistive Device: FWW Does the Pt Use a Wheelchair: No Wheelchair Distance: 120'x2 Wheel 50 ft with 2 turns (QC): 2 Wheel 150 ft (QC): 88 Type of Wheelchair: Manual #of Steps: 6 1 Step (curb) (QC): 5 4 Steps (QC): 5 12 Steps (QC): 88 Balance Sitting Static: Normal Balance Sitting Dynamic: Normal Balance-Standing Static: Fair Picking up an Object (QC): 6 Occupational Therapy Pt admitted to [facility] s/p R [facility]. At [facility], pt was independent with ADLS and functional mobility. Upon initial evaluation, pt required set up with eating and UE dressing, supervision oral care, min A showering and toileting, max A LE dressing and mod A footwear. OT tx focused on increasing BUE Strength and activity tolerance, and increasing safety and independence with ADLS and functional mobility. Pt made good progress towards goals, attaining all LTGs at IND level. Pt discharging from facility, d/c from OT. Decreased Activ Tolerance, Decreased UE Strength, Impaired Self-Care Skills Eating (QC): 6 Oral Hygiene (QC): 6 Shower/Bathe Self (QC): 6 Upper Body Dressing (QC): 6 Lower Body Dressing (QC): 6 On/Off Footwear (QC): 6 Toileting Hygiene (QC): 6 PT Residential Goals Edge Baster Goals PT Residential Goals Time Frame: Sep 11, 2022 Roll Left to Right (QC): 6 Sit to Lying (QC): 6 Lying-Sitting on Side/Bed(QC): 6 Sit to Stand (QC): 6 Chair/Mbs-my-Xgnev Xfer(QC): 4 (SBA) Toilet/Commode Transfer (QC): 4 (SBA) Car Transfer (QC): 4 (SBA) Does the Patient Walk: Yes Walk 10 feet (QC): 4 (SBA) Walk 10ft-Uneven Surface(QC): 4 (SBA) Walk 50ft with 2 Turns (QC): 4 (SBA) Walk 150 ft (QC): 4 (SBA) Wheel 50 feet with 2 turns (QC: 9 Wheel 150 feet: 9 1 Step (curb) (QC): 4 (CGA) 4 Steps (QC): 4 (CGA) 12 Steps (QC): 88 Picking up an Object (QC): 6 OT Edge Baster Goals Edge Baster Goals Time Frame: Sep 21, 2022 Acute change in mental status: 0 Inattention: 0 Disorganized thinkin Altered level of consciousness: 0 Eating (QC): 6 (met) Oral Hygiene (QC): 6 (met) Toileting Hygiene (QC): 6 (met) Shower/Bathe Self (QC): 5 (met) Upper Body Dressing (QC): 6 (met) Lower Body Dressing (QC): 6 (met) On/Off Footwear (QC): 6 (met) Additional Goals: 1-Demonstrate ADL Tasks, 2-Verbalize Understanding, 3- ImproveStrength/Junior 1=Demonstrate adherence to instructed precautions during ADL tasks. 2=Patient will verbalize/demonstrate understanding of assistive devices/modifications for ADL. 3=Patient will improve strength/tolerance for activity to enable patient to perform ADL's. VASHTI DUARTE OT Sep 06, 2022 07:58
[2022-09-06] MEDS: rOPINIRole 1 MG (REQUIP) TABLET PO SCH (09:03)
[2022-09-06] MEDS: FLECAINIDE 100 MG (TAMBOCOR) TAB PO SCH (09:03)
[2022-09-06] MEDS: APIXABAN 2.5 MG (ELIQUIS) TABLET PO SCH (09:03)
[2022-09-06] MEDS: amLODIPine 5 MG (NORVASC) TAB PO SCH (09:03)
[2022-09-06] MEDS: SERTRALINE 50 MG (ZOLOFT) TABLET PO SCH (09:03)
[2022-09-06] MEDS: DOCUSATE SODIUM 100 MG (COLACE) CAP PO SCH (09:04)
[2022-09-06] MEDS: SENNA W/DOCUSATE (SENOKOT S) TABLET PO SCH (09:04)
[2022-09-06] MEDS: polyethylene glycoL POWDER 17 GM (MIRALAX) PACK PO SCH (09:04)
[2022-09-06] MEDS: IRON SUCROSE 200 MG/10 ML (VENOFER) VIAL IV SCH (09:04)
[2022-09-06 11:30] VITALS: BP 143/82
--- NOTE | 2022-09-06 19:41 | Therapy Team Discharge Summary ---
Therapy Discharge Summary Discharge Recommendations Date of Discharge 09/06/22 Physical Therapy Patient has received PT services on ARU due to s/p fall with hip fx/IM nailing. She has progressed to (I) level for gait 200' with FWW, (I) with sit<>stand and functional transfers and (I) with bed mobility. She is able to ascend/descend a curb with FWW and 4 steps /c (B) railing SBA. She is able to pick an object off floor independently. She is safe to return home with family support prn, home health services. Will continue to require FWW use for safe ambulation. Roll Left to Right (QC): 6 Sit to Lying (QC): 6 Lying to Sitting/Side of Bed(Q: 6 Sit to Stand (QC): 6 Chair/Qcj-kr-Zrehb Xfer(QC): 6 Toilet Transfer (QC): 6 Car Transfer (QC): 6 Does the Patient Walk: Yes Mode of Locomotion: Walk Anticipated Mode of Locomotion: Walk Walk 10 feet (QC): 6 Walk 50 ft with 2 Turns(QC): 6 Walk 150 ft (QC): 6 Walking 10ft on uneven surface: 5 Distance: 20' Gait Assistive Device: FWW Does the Pt Use a Wheelchair: No Wheelchair Distance: 200' Wheel 50 ft with 2 turns (QC): 6 Wheel 150 ft (QC): 6 Type of Wheelchair: Manual #of Steps: 6 1 Step (curb) (QC): 5 4 Steps (QC): 5 12 Steps (QC): 88 Walking Assistive Device: Walker Balance Sitting Static: Normal Balance Sitting Dynamic: Normal Balance-Standing Static: Good Picking up an Object (QC): 6 Occupational Therapy Decreased Activ Tolerance, Decreased UE Strength, Impaired Self-Care Skills Eating (QC): 6 Oral Hygiene (QC): 6 Shower/Bathe Self (QC): 6 Upper Body Dressing (QC): 6 Lower Body Dressing (QC): 6 On/Off Footwear (QC): 6 Toileting Hygiene (QC): 6 PT Bleach Range Operator Goals Bleach Range Operator Goals PT Bleach Range Operator Goals Time Frame: Sep 11, 2022 Roll Left to Right (QC): 6 Sit to Lying (QC): 6 Lying-Sitting on Side/Bed(QC): 6 Sit to Stand (QC): 6 Chair/Rpk-kk-Jcbjj Xfer(QC): 4 (SBA) Toilet/Commode Transfer (QC): 4 (SBA) Car Transfer (QC): 4 (SBA) Does the Patient Walk: Yes Walk 10 feet (QC): 4 (SBA) Walk 10ft-Uneven Surface(QC): 4 (SBA) Walk 50ft with 2 Turns (QC): 4 (SBA) Walk 150 ft (QC): 4 (SBA) Wheel 50 feet with 2 turns (QC: 9 Wheel 150 feet: 9 1 Step (curb) (QC): 4 (CGA) 4 Steps (QC): 4 (CGA) 12 Steps (QC): 88 Picking up an Object (QC): 6 ALL LTG's met and/or exceeded. OT Residential Goals Bleach Range Operator Goals Time Frame: Sep 21, 2022 Acute change in mental status: 0 Inattention: 0 Disorganized thinkin Altered level of consciousness: 0 Eating (QC): 6 (met) Oral Hygiene (QC): 6 (met) Toileting Hygiene (QC): 6 (met) Shower/Bathe Self (QC): 5 (met) Upper Body Dressing (QC): 6 (met) Lower Body Dressing (QC): 6 (met) On/Off Footwear (QC): 6 (met) Additional Goals: 1-Demonstrate ADL Tasks, 2-Verbalize Understanding, 3-ImproveStrength/Junior 1=Demonstrate adherence to instructed precautions during ADL tasks. 2=Patient will verbalize/demonstrate understanding of assistive devices/modifications for ADL. 3=Patient will improve strength/tolerance for activity to enable patient to perform ADL's. Denise Naranjo PT Sep 06, 2022 19:41
== END 2022-09-06 11:30 | disposition home health service (06) | DRG 559 ==
PROVIDERS: ADMIT Internal Medicine; ATTEND Internal Medicine
DX: S72.001D Fracture of unspecified part of neck of right femur, subsequent encounter for closed fracture with routine healing (principal); J18.9 Pneumonia, unspecified organism; J44.0 Chronic obstructive pulmonary disease with (acute) lower respiratory infection; D62 Acute posthemorrhagic anemia; Z91.81 History of falling; I48.0 Paroxysmal atrial fibrillation; I49.5 Sick sinus syndrome; I11.0 Hypertensive heart disease with heart failure; I50.9 Heart failure, unspecified; I25.10 Atherosclerotic heart disease of native coronary artery without angina pectoris; G20 Parkinson's disease; R54 Age-related physical debility; E53.8 Deficiency of other specified B group vitamins; E78.00 Pure hypercholesterolemia, unspecified; M81.0 Age-related osteoporosis without current pathological fracture; F41.9 Anxiety disorder, unspecified; F32.A Depression, unspecified; Z87.891 Personal history of nicotine dependence; Z79.01 Long term (current) use of anticoagulants; Z79.899 Other long term (current) drug therapy; Z88.2 Allergy status to sulfonamides; W19.XXXD Unspecified fall, subsequent encounter
CPT/HCPCS: 36415; 80053; 85025; 94760

== ENCOUNTER → 2022-09-19 | Outpatient (CLI) | payer MEDICARE, OTHER ==
--- NOTE | 2022-09-19 12:30 | Diagnostic Imaging Report ---
INDICATION: Right hip pain. COMPARISON: None FINDINGS: 2 radiographic views of the right hip were obtained and show postsurgical changes of previous ORIF. Short intramedullary arelis traverses the proximal right femoral shaft. This intersects a screw which traverses the femoral head and neck. Distal anchor screw is also noted. Major fracture fragments are in appropriate alignment. There is mild displacement of the lesser trochanter fracture fragment. Contrast entered joint spaces also maintained. No unexpected radiopaque foreign bodies are seen. There are deformities of the bilateral superior and inferior pubic rami are also noted and are favored to be chronic. IMPRESSION: 1. Redemonstration nonacute fracture and postsurgical changes to the proximal right femur as above. Dictated by: Dictated on workstation # [id number]
== END ==
LOC: ORTHO 10:53
PROVIDERS: ATTEND Orthopaedic Surgery
DX: Z47.89 Encounter for other orthopedic aftercare (principal); I10 Essential (primary) hypertension; E78.2 Mixed hyperlipidemia
CPT/HCPCS: 73502

== ENCOUNTER → 2022-10-31 | Outpatient (CLI) | payer MEDICARE, OTHER ==
--- NOTE | 2022-10-31 12:09 | Diagnostic Imaging Report ---
Indication: Right hip pain COMPARISON: 09/19/2022 TECHNIQUE: 2 radiographs the right hip dated 10/31/2022. FINDINGS: Gamma nail is again identified transfixing proximal right femoral fracture. Alignment remains stable without hardware complication. This includes the lesser trochanter being slightly medially displaced with some persisting fracture lucencies remain at this location. Stable chronic fracture deformities involving the right superior and inferior pubic ramus. Mild degenerative changes the right hip. No new fracture or dislocation. No collapse of the right femoral head. IMPRESSION: Stable post surgical changes involving the right femur without hardware complication. Mild degenerative changes and chronic fractures as described above without acute osseous abnormality. Dictated by: Dictated on workstation # [id number]
== END ==
LOC: ORTHO 09:57
PROVIDERS: ATTEND Orthopaedic Surgery
DX: Z47.89 Encounter for other orthopedic aftercare (principal)
CPT/HCPCS: 73502

== ENCOUNTER → 2022-12-12 | Outpatient (CLI) | payer MEDICARE, OTHER ==
--- NOTE | 2022-12-12 16:41 | Diagnostic Imaging Report ---
INDICATION: Right hip pain. TECHNIQUE/COMPARISON: AP and oblique views of the right hip were obtained and compared to 10/31/2022. FINDINGS: Hardware in place in the femoral neck and proximal shaft is unchanged in position. The intertrochanteric fracture of the right proximal femur appears in stable alignment with some residual lucency of the fracture site. There is no new bony abnormality. IMPRESSION: Stable alignment of the intertrochanteric fracture of the right proximal femur with unchanged hardware positioning. Dictated by: Dictated on workstation # [id number]
== END ==
LOC: ORTHO 09:46
PROVIDERS: ATTEND Orthopaedic Surgery
DX: S72.141D Displaced intertrochanteric fracture of right femur, subsequent encounter for closed fracture with routine healing (principal); X58.XXXD Exposure to other specified factors, subsequent encounter
CPT/HCPCS: 73502; G0463; 99213

== ENCOUNTER → 2023-03-07 | Outpatient (CLI) | payer MEDICARE, OTHER ==
[~2023-03-07] MED LIST changes: +ROPI0.5T37 PO; -ROPI0.5T4 PO; -ROPI1TAB PO; +ROPI1TAB46 PO; +ROPI2TAB52 PO; -ROPI2TAB6 PO
--- NOTE | 2023-03-07 16:13 | Diagnostic Imaging Report ---
Indication: Chest pain. Time of Exam: 3:02 PM Comparison is made with prior chest from 08/27/2022. The heart is enlarged but stable. Lungs appear to be clear. No infiltrate or failure is detected. There is no effusion or pneumothorax. There are kyphoplasty changes lower thoracic spine. There are postop changes of the left shoulder. There appears to be an old fracture deformity of the proximal right humerus. IMPRESSION: Cardiomegaly. No acute feature in the chest is identified. Dictated by: Dictated on workstation # [id number]
--- NOTE | 2023-03-07 18:18 | Diagnostic Imaging Report ---
Indication: Chest pain and left rib pain, fall. Time of Exam: 3:04 PM 2 views left ribs were obtained. No rib fracture is identified. No parenchymal contusion, effusion or pneumothorax is detected. IMPRESSION: No displaced rib fracture is detected. Dictated by: Dictated on workstation # [id number]
== END ==
LOC: RAD 14:50
PROVIDERS: ATTEND Internal Medicine
DX: I51.7 Cardiomegaly (principal)
CPT/HCPCS: 71046; 71100

== ENCOUNTER 2023-04-17 13:53 | Emergency (ER) | payer MEDICARE, OTHER ==
[~2023-04-17] VITALS: Ht 167.7 cm; Wt 50.8 kg
--- NOTE | 2023-04-17 14:05 | ED Chest Pain ---
General Chief Complaint: Chest Pain Stated Complaint: ABD PAIN History of Present Illness Date Seen by Provider: Apr 17, 2023 Time Seen by Provider: 14:05 Initial Comments 88-year-old female presents with epigastric/lower chest pain. She reports that this been going on since last night when it awoke her. The pain goes all the way through to her back. She reports that she has had a similar episode about a month ago, went away but now has come back. She has a little bit of feeling of shortness of breath with it. Allergies and Home Medications Allergies Coded Allergies: Sulfa (Sulfonamide Antibiotics) (Verified Allergy, Unknown, hives, 11/16/19) Patient Home Medication List Home Medication List Reviewed: Yes Amlodipine Besylate (Amlodipine Besylate) 5 Mg Tablet, 5 MG PO DAILY, (Reported) Entered as Reported by: EDMAR FELIX on 08/21/22 153 Apixaban (Eliquis) 2.5 Mg Tablet, 2.5 MG PO BID, (Reported) Entered as Reported by: ADRIANA VILLALOBOS on 03/27/21 1356 Ascorbic Acid (Vitamin C) 500 Mg Capsule, 500 MG PO DAILY, (Reported) Entered as Reported by: ADRIANA VILLALOBOS on 03/27/21 1409 Carbidopa/Levodopa (Carbidopa-Levodopa 25-100 Tab) 25 Mg-100 Mg Tablet, 1 EA PO 0700,1000,1300,1600,1900, (Reported) Entered as Reported by: EDMAR FELIX on 08/21/22 153 Diazepam (Diazepam) 10 Mg Tablet, 10 MG PO HS, (Reported) Entered as Reported by: ADRIANA VILLALOBOS on 03/27/21 1404 Docusate Sodium (Docusate Sodium) 100 Mg Capsule, 100 MG PO BID, (Reported) Entered as Reported by: ADRIANA VILLALOBOS on 03/27/21 1405 Flecainide Acetate (Flecainide Acetate) 100 Mg Tablet, 50 MG PO BID, (Reported) Entered as Reported by: ADRIANA VILLALOBOS on 03/27/21 1407 Lovastatin (Lovastatin) 10 Mg Tablet, 10 MG PO HS, (Reported) Entered as Reported by: ADRIANA VILLALOBOS on 03/27/21 1358 Melatonin (Melatonin) 10 Mg Tablet, 10 MG PO HS, (Reported) Entered as Reported by: EDMAR FELIX on 08/21/221536 Multivitamin (Multivitamin) 1 Each Tablet, 1 EACH PO DAILY, (Reported) Entered as Reported by: EDMAR FELIX on 08/21/221536 Mv-Mn/FA/Vit K/Lycop/Lut/Zeaxa (Ocuvite Eye + Multi Tablet) 1 Each Tablet, 1 EACH PO DAILY, (Reported) Entered as Reported by: ADRIANA VILLALOBOS on 03/27/21 1413 Ropinirole HCl (Ropinirole HCl) 2 Mg Tablet, 2 MG PO TID, (Reported) Entered as Reported by: EDMAR FELIX on 08/21/221536 Sertraline HCl (Sertraline HCl) 25 Mg Tablet, 25 MG PO DAILY, (Reported) Entered as Reported by: EDMAR FELIX on 08/21/221536 Tramadol HCl (Tramadol HCl) 50 Mg Tablet, 50 MG PO BID PRN for PAIN-MODERATE (5- 7), (Reported) Entered as Reported by: ADRIANA VILLLAOBOS on 03/27/21 142 Vitamin B Complex/Folic Acid (B-Complex Tablet) 0.4 Mg Tablet, 1 EA PO DAILY, (Reported) Entered as Reported by: EDMAR FELIX on 08/21/221536 Review of Systems Review of Systems Constitutional: no symptoms reported EENTM: No Symptoms Reported Respiratory: See HPI Cardiovascular: See HPI Gastrointestinal: See HPI; Denies Nausea, Denies Vomiting Genitourinary: No Symptoms Reported Musculoskeletal: no symptoms reported Skin: no symptoms reported Past Wcagczy-Hgrapk-Nhbkqi Hx Immunizations Up To Date Tetanus Booster (TDap): Less than 5yrs PED Vaccines UTD: Yes First/Initial COVID19 Vaccinat: 11/04 Second COVID19 Vaccination Chris: 11/04 Third COVID19 Vaccination Date: 11/04 Seasonal Allergies Seasonal Allergies: Yes Past Medical History Surgery/Hospitalization HX: FX PELVIS, A-FIB, BELLS PALSY, MULTIPLE BACK SURGERIES, LT ANKLE FX W FUSION, LT SHOULDER REPLACEMENT, LOOP RECORDER, CHOLECYSTECTOMY, SPLEENECTOMY, PNEUMONIA, CHF, PARKINSON'S DX, CVA, FALLS Surgeries: Yes Abdominal, Hysterectomy, Orthopedic Respiratory: Yes (Nocturnal hypoxia) Currently Using CPAP: No Currently Using BIPAP: No Cardiac: Yes Atrial Fibrillation, High Cholesterol, Hypertension Neurological: Yes (tremor, Dick's palsy) Parkinson's Disease Reproductive Disorders: No 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 Sexually Transmitted Disease: No Genitourinary: No Gastrointestinal: No Musculoskeletal: Yes (BILATERAL KNEE REPLACEMENTS; LEFT SHOULDER REPLACEMENTS; ) Osteoporosis Endocrine: No HEENT: No Cancer: No Psychosocial: Yes Anxiety, Depression Integumentary: No Blood Disorders: No Family Medical History Cardiovascular disease 19 FATHER Hypertension 19 FATHER No Pertinent Family Hx Physical Exam Vital Signs Vital Signs - First Documented 04/17/23 04/17/23 13:59 14:05 Temp 36.9 Pulse 67 Resp 16 B/P (MAP) 128/94 (105) Pulse Ox 96 O2 Delivery Room Air O2 Flow Rate 2.00 Capillary Refill : Height, Weight, BMI Height: 5'7.00" Weight: 123lbs. 2.0oz. [id number]; 19.66 BMI Method:Stated General Appearance: No Apparent Distress Respiratory: Lungs Clear, Normal Breath Sounds Cardiovascular: Regular Rate, Rhythm, No Edema Gastrointestinal: Soft, Tenderness (epigastric region ) Neurologic/Psychiatric: Alert, Oriented x3, Normal Mood/Affect, zinc plate grainer II-XII Norm as Tested, Other (baseline course trembles) Skin: Normal Color, Warm/Dry Progress/Results/Core Measures Results/Orders Lab Results Laboratory Tests Test 04/17/23 14:06 04/17/23 16:08 Range/Units White Blood Count 7.0 4.3-11.0 10^3/uL Red Blood Count 5.06 3.80-5.11 10^6/uL Hemoglobin 14.9 11.5-16.0 g/dL Hematocrit 49 35-52 % Mean Corpuscular Volume 97 80-99 fL Mean Corpuscular Hemoglobin 29 25-34 pg Mean Corpuscular Hemoglobin Concent 30 L 32-36 g/dL Red Cell Distribution Width 15.2 H 10.0-14.5 % Platelet Count 207 130-400 10^3/uL Mean Platelet Volume 9.8 9.0-12.2 fL Immature Granulocyte % (Auto) 0 % Neutrophils (%) (Auto) 71 42-75 % Lymphocytes (%) (Auto) 18 12-44 % Monocytes (%) (Auto) 9 0-12 % Eosinophils (%) (Auto) 2 0-10 % Basophils (%) (Auto) 1 0-10 % Neutrophils # (Auto) 4.9 1.8-7.8 10^3/uL Lymphocytes # (Auto) 1.2 1.0-4.0 10^3/uL Monocytes # (Auto) 0.6 0.0-1.0 10^3/uL Eosinophils # (Auto) 0.1 0.0-0.3 10^3/uL Basophils # (Auto) 0.1 0.0-0.1 10^3/uL Immature Granulocyte # (Auto) 0.0 0.0-0.1 10^3/uL Sodium Level 141 135-145 MMOL/L Potassium Level 3.9 3.6-5.0 MMOL/L Chloride Level 105 98-107 MMOL/L Carbon Dioxide Level 28 21-32 MMOL/L Anion Gap 8 5-14 MMOL/L Blood Urea Nitrogen 17 7-18 MG/DL Creatinine 0.82 0.60-1.30 MG/DL Estimat Glomerular Filtration Rate 70 BUN/Creatinine Ratio 21 Glucose Level 100 70-105 MG/DL Calcium Level 8.8 8.5-10.1 MG/DL Corrected Calcium 8.9 8.5-10.1 MG/DL Magnesium Level 2.1 1.6-2.4 MG/DL Total Bilirubin 0.8 0.1-1.0 MG/DL Aspartate Amino Transf (AST/SGOT) 21 5-34 U/L Alanine Aminotransferase (ALT/SGPT) < 6 0-55 U/L Alkaline Phosphatase 82 40-136 U/L Troponin I < 0.028 < 0.028 <0.028 NG/ML Total Protein 7.2 6.4-8.2 GM/DL Albumin 3.9 3.2-4.5 GM/DL Lipase 36 8-78 U/L My Orders Orders - SLAUGHTER,LORIE L DO Ekg Tracing (04/17/23 14:01) Chest 1 View, Ap/Pa Only (04/17/23 14:05) Cbc And Automated Diff (04/17/23 14:05) Comprehensive Metabolic Panel (04/17/23 14:05) Magnesium (04/17/23 14:05) Troponin I Ren (04/17/23 14:05) Lipase (04/17/23 14:10) Troponin I [place] (04/17/23 15:56) Vital Signs/I&O 04/17/23 04/17/23 04/17/23 13:59 14:05 16:50 Temp 36.9 Pulse 67 65 Resp 16 16 B/P (MAP) 128/94 (105) 161/87 Pulse Ox 96 93 O2 Delivery Room Air Nasal Cannula Room Air O2 Flow Rate 2.00 Progress Progress Note : Progress Note Patient's diagnostic studies were ordered reviewed and interpreted by me. Patient has no acute findings on her labs with 2 negative troponins with EKG that is unchanged from 2021. Patient's chest x-ray was ordered reviewed shows some early mild pulmonary edema/vascular congestion. I did call and discuss patient with her primary care provider Dr. Tapia. We will have patient follow- up with Dr. Tapia on outpatient basis for further evaluation. She does not appear to be having an acute coronary event. Patient's pain is, nonspecific in the epigastric region. Patient was encouraged to call Dr. Zarate's office upon discharge to arrange for an outpatient follow-up. Patient was stable and discharged home Initial ECG Impression Date: Apr 17, 2023 Initial ECG Impression Time: 14:04 Initial ECG Rate: 68 Initial ECG Rhythm: Normal Sinus (68) Initial ECG Impression: Nonspecific Changes Initial ECG Comparisson: Unchanged (01/09/22) Comment similar to 01/09/22, no acute changes Departure Impression Primary Impression: Nonspecific chest pain Disposition: 01 HOME, SELF-CARE Condition: Stable Departure-Patient Inst. Referrals: FLORENCIA TAPIA DO (PCP/Family) Primary Care Physician Patient Instructions: Chest Pain That Is Not Caused by the Heart (DC), Chest Pain, Adult ED Add. Discharge Instructions: Please call Dr. Tapia's office to arrange for a follow-up for further evaluation and recheck of your symptoms All discharge instructions reviewed with patient and/or family. Voiced understanding. LORIE SLAUGHTER DO Apr 17, 2023 14:05
[2023-04-17 14:23] LABS: BASOPHILS # (AUTO) 0.1 10^3/uL (0.0-0.1); BASOPHILS % (AUTO) 1 % (0-10); EOSINOPHILS # (AUTO) 0.1 10^3/uL (0.0-0.3); EOSINOPHILS % (AUTO) 2 % (0-10); HEMATOCRIT 49 % (35-52); HEMOGLOBIN 14.9 g/dL (11.5-16.0); LYMPHOCYTES # (AUTO) 1.2 10^3/uL (1.0-4.0); LYMPHOCYTES % (AUTO) 18 % (12-44); MEAN CORPUSCULAR HEMOGLOBIN 29 pg (25-34); MEAN CORPUSCULAR HGB CONC 30 g/dL (32-36); MEAN CORPUSCULAR VOLUME 97 fL (80-99); MEAN PLATELET VOLUME 9.8 fL (9.0-12.2); MONOCYTES # (AUTO) 0.6 10^3/uL (0.0-1.0); MONOCYTES % (AUTO) 9 % (0-12); NEUTROPHILS # (AUTO) 4.9 10^3/uL (1.8-7.8); NEUTROPHILS % (AUTO) 71 % (42-75); PLATELET COUNT 207 10^3/uL (130-400)
--- NOTE | 2023-04-17 14:26 | Diagnostic Imaging Report ---
INDICATION: Chest pain. TECHNIQUE: Single-view chest at 02:24 p.m. CORRELATION STUDY: 03/07/2023. FINDINGS: Heart size and mediastinum are enlarged and prominent with loop recorder device over left infrahilar region. Vasculature overall appears prominent. Question faint opacities along the central aspect of the right lung may be reflective of edema versus infiltrate. Unchanged elevated right diaphragm. 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 Multilevel kyphoplasty changes are also present. IMPRESSION: 1. Cardiac enlargement with a prominent vasculature may reflect mild or early edema. Opacities in the right central lung may reflect asymmetric edema versus infiltrate. Dictated by: Dictated on workstation # [id number]
[2023-04-17 14:27] LABS: ALBUMIN 3.9 GM/DL (3.2-4.5)
[2023-04-17 14:28] LABS: CHLORIDE 105 MMOL/L (98-107); POTASSIUM 3.9 MMOL/L (3.6-5.0); SODIUM 141 MMOL/L (135-145)
[2023-04-17 14:29] LABS: CALCIUM 8.8 MG/DL (8.5-10.1)
[2023-04-17 14:30] LABS: GLUCOSE 100 MG/DL (70-105); TOTAL PROTEIN 7.2 GM/DL (6.4-8.2)
[2023-04-17 14:31] LABS: CARBON DIOXIDE 28 MMOL/L (21-32)
[2023-04-17 14:32] LABS: BILIRUBIN,TOTAL 0.8 MG/DL (0.1-1.0)
[2023-04-17 14:33] LABS: ALKALINE PHOSPHATASE 82 U/L (40-136)
[2023-04-17 14:34] LABS: CREATININE SERUM 0.82 MG/DL (0.60-1.30); GFR ESTIMATED 70
[2023-04-17 14:35] LABS: BUN/CREATININE RATIO 21
[2023-04-17 14:37] LABS: ALANINE AMINOTRANSFERASE < 6 U/L (0-55); MAGNESIUM 2.1 MG/DL (1.6-2.4)
[2023-04-17 14:38] LABS: LIPASE 36 U/L (8-78)
[2023-04-17 16:50] VITALS: BP 161/87
== END 2023-04-17 16:50 | disposition home or self-care (01) ==
LOC: EDUNIT# 13:53 → ER 13:55
DX: R07.89 Other chest pain (principal); R10.13 Epigastric pain; Z90.49 Acquired absence of other specified parts of digestive tract
CPT/HCPCS: 36415; 71045; 80053; 83690; 83735; 84484; 85025; 93005